=== PATIENT | female | born 1975 | race Caucasian/White ===

== ENCOUNTER 2018-02-20 09:17 | Emergency (ER) | payer OTHER, SELFPAY ==
[2018-02-20 09:18] VITALS: BP 144/90; PULSE 81; RESP 16; TEMP 36.8; O2SAT 100; BMI 23.8
--- NOTE | 2018-02-20 09:33 | US_ITS ---
STUDY: ULTRASOUND OF THE FEMALE PELVIS - COMPLETE REASON FOR EXAM: Female, 42 years old. 2 day history of a left lower quadrant pain. LMP: February 16, 2018. TECHNIQUE: Transvaginal TECHNICAL QUALITY: Adequate. COMPARISON: None. FINDINGS: The uterus is anteverted and is in a midline position. The uterus measures 8.7 cm x 5.7 cm x 4.7 cm. Normal uterine cervix. The endometrium measures 5 mm in thickness, and is hyperechoic. There is no demonstrated endometrial mass. There is no demonstrated myometrial mass. I.U.D. - The patient does not have an I.U.D. The right ovary is visualized. The right ovary measures 3.0 cm x 2.2 cm x 2.0 cm. There is no right ovarian cyst or ovarian mass. There is no visualized right adnexal mass or complex lesion. There is normal arterial and normal venous vascularity. The left ovary is visualized. The left ovary measures 3.5 cm x 2.1 cm x 1.8 cm. There is no left ovarian cyst or ovarian mass. There is no visualized left adnexal mass or complex lesion. There is normal arterial and normal venous vascularity. There is no fluid in the cul-de-sac. The pre void volume of the bladder was 266 ml. Polycystic ovary disease: No. US/Transvaginal Non- IMPRESSION: Normal female pelvis. Electronically Signed: Kamlesh Gonsalez MD at 11:27 EDT Tel [phone], Service support ,
--- NOTE | 2018-02-20 09:41 | ED.DCSUM_ITS ---
- ER Visit Summary Date of Service: 02/20/18 Chief Complaint: Left lower quadrant abdominal History of Present Illness: The patient is a 42 F presents to the emergency department left lower quadrant abdominal pain. The patient had the symptoms intermittently for the past 2 months. States for the past 24 hours, they have significantly worsened. She states that it comes in waves and always doubles her over. She did have a large right ovarian cyst and states that this feels similar. She states when she bends her leg, the pain is better. She has not had nausea or vomiting. She states that she did take 2 home tests which were both negative. She has had prior , but no other abdominal surgery. The patient is otherwise healthy. Physical Examination: Vital signs reviewed General: Well-nourished, well-developed Head: Normocephalic, atraumatic Eyes: Pupils equal and reactive, extraocular muscles intact Neck, supple, no lymphadenopathy Heart: Regular rate and rhythm Respiratory: No distress, clear bilaterally Abdomen: Soft, mildly tender, nondistended, no peritoneal signs Back: Nontender Extremities: Nontender, no edema, no cords Skin: Normal color no rash Neuro: Alert and oriented, no focal or lateralizing deficits Test Results: [] Emergency Department Course and Treatment: The patient's tenderness is all deep in her left lower quadrant into the pelvis. She does have a prior history of ovarian cyst. IV was established. She declined any analgesics. Screening labs were obtained were unremarkable. The patient has had no diarrhea, no fever , no chills, or no other systemic symptoms that would be concerning for acute intra-abdominal process like diverticulitis or colitis. I did obtain an ultrasound which shows normal bilateral ovaries with normal blood flow. There is no significant cystic changes. Her urine does show some blood, but the patient is just finishing her menses. On reevaluation she is resting comfortably. At this time, I am unclear on the acute etiology of her pain. I do feel that this may be adhesions from her prior versus another process. At this time, given her unremarkable workup and resolution of symptoms I do feel that she is safe for outpatient therapy. Patient will be discharged home. Treatment Plan: [] Disposition: [] Impression: 1. Left pelvic pain This note was generated with [employer] software. It may contain incorrect words, spelling, and punctuation that were not noted in review of the chart prior to signing ED Disposition - Plan for ED Patient: Chief Complaint: Abd Pain Instructions: ED Pelvic Pain [facility] Referrals: Natividad Yee PA-C [Primary Care Provider] -
[2018-02-20 09:52] LABS: Absolute Lymphocyte Count 2.33 X10^3/ul (0.83-4.51); Basophil# 0.05 X10^3/uL; Basophil% 0.7 % (0-1); Eosinophil# 0.04 X10^3/uL; Eosinophils% 0.6 % (0-5); Hematocrit 40.7 % (37-47); Hemoglobin 13.7 g/dl (12.0-15.0); Lymphocyte # 2.33 X10^3/ul (4.0); Lymphocyte % 33.1 % (19-41); Mean Corp Hgb Conc 33.7 g/gl (32-36); Mean Corpuscular Hgb 30.9 pg (27.0-32.0); Mean Corpuscular Volume 91.9 fL (81-99); Mean Platelet Vol. 9.6 fl (6.2-12.0); Monocyte# 0.65 X10^3/uL; Monocyte% 9.2 % (0-10); Neutrophil # 3.95 X10^3/uL (2.7-7.7); Neutrophil % 56.3 % (47-70); POSITIVE COUNT NO; POSITIVE DIFFERENTIAL NO; POSITIVE MORPHOLOGY NO; Platelet Count 238 K/mm3 (150-450); RBC Distribution Width CV 12.7 % (11.6-14.6); RBC Distribution Width SD 42.8 fl (35.1-43.9); Red Blood Count 4.43 M/mm3 (4.2-5.4)
[2018-02-20] MEDS: Ondansetron 4 MG/2 ML Vial IV (09:55)
[2018-02-20] MEDS: Ketorolac 30 MG/ML Syringe IV (09:55)
[2018-02-20] MEDS: 0.9% Normal Saline 1,000 ML 125 ML IV (09:56)
[2018-02-20 10:00] LABS: Anion Gap 7 (5-15); BUN 13 mg/dL (7-18); BUN/Creat Ratio 17.5 RATIO (10-20); Calcium,Total 9.2 mg/dL (8.5-10.1); Chloride 105 mmol/L (98-107); Creatinine, Serum 0.74 mg/dL (0.55-1.02); EST Glomerular Filtration Rate 90 mL/min (>60); Est Glom Filt Rate - Afr Amer 109 mL/min (>60); Estimated Creatinine Clearance 90.82 ml/min; Glucose 102 mg/dL (74-106); Potassium 4.1 mmol/L (3.5-5.1); Sodium Level 139 mmol/L (136-145)
[2018-02-20 11:09] LABS: Bacteria 0 SEEN /hpf (None Seen)
[2018-02-20 11:13] LABS: Internal QC Validated? YES +Cl - CLEAR BKGD
[2018-02-20 11:14] LABS: Color, Urine Straw (Yellow); Glucose, Dipstick Normal (Normal); Ketone-Dipstick Negative (Negative); Leukocyte Esterase-Dipstick Negative /ul (Negative); Nitrite-Dipstick Negative (Negative); Occult Blood-Urine 150 /ul (Negative); Protein-Dipstick Negative (Negative); Specific Gravity, Urine 1.005 (1.002-1.030); Urine Bilirubin Dipstick Negative (Negative); Urine Clarity Sl. Cloudy (Clear); Urine Urobilinogen Normal (Normal)
[2018-02-20 11:16] LABS: Pregnancy, Urine Negative Negative
[2018-02-20 11:31] LABS: Red Blood Cells-Urine 0-5 SEEN /hpf (0-5); Squamous Epithelial Cells - UA 0-5 SEEN /hpf (5-10); White Blood Cells 0-5 SEEN /hpf (0-5)
[2018-02-20 11:32] LABS: Mucous, Urine RARE /hpf (<or=2+)
[2018-02-20 11:58] VITALS: BP 125/74; PULSE 68; RESP 15; O2SAT 98
== END 2018-02-20 12:04 | disposition home or self-care (01) ==
LOC: ED 09:59
PROVIDERS: Emergency Provider Emergency Medicine; Family Provider Family Medicine; PCP Family Medicine
DX: R10.2 Pelvic and perineal pain (principal)
CPT/HCPCS: 76830; 80048; 81001; 81025; 85025; 96361; 96374; 96375; 99283; J7030; A4216; J2405

== ENCOUNTER → 2019-02-28 16:42 | Outpatient (CLI) | payer OTHER, SELFPAY ==
[2019-02-28 15:06] VITALS: BMI 23.8
[2019-03-06 16:16] LABS: HPV APTIMA, High Risk Negative (Negative)
== END ==
PROVIDERS: Family Provider Family Medicine; PCP Family Medicine; Referring Provider Nurse Practitioner Women's Health; Visit Provider Nurse Practitioner Women's Health
DX: Z12.4 Encounter for screening for malignant neoplasm of cervix (principal)
CPT/HCPCS: 87624; 88175; G0145

== ENCOUNTER → 2019-07-19 15:03 | Outpatient (CLI) | payer OTHER, SELFPAY ==
[2019-07-19 14:53] VITALS: BMI 23.8
--- NOTE | 2019-07-19 15:09 | RAD_ITS ---
HISTORY: PAIN ADDITIONAL HISTORY: None provided. TECHNIQUE: Left knee 4 views Number of images including paperwork: 4 COMPARISON: None FINDINGS: BONES: No acute fracture. JOINTS: No subluxation. Mild joint space narrowing of the medial compartment. SOFT TISSUES: No distinct foreign body. RAD/Knee 4 or More Views IMPRESSION: Degenerative changes without acute osseous abnormality. at 2311 Reported and signed by: Magui Au MD Electronically Signed: Magui Au MD at 23:11 EST Tel , Service support ,
== END ==
PROVIDERS: PCP Family Medicine; Referring Provider Physician Assistant; Visit Provider Physician Assistant
DX: M25.562 Pain in left knee (principal)
CPT/HCPCS: 73564

== ENCOUNTER → 2019-08-03 13:38 | Outpatient (CLI) | payer OTHER, SELFPAY ==
[2019-07-19 14:53] VITALS: BMI 23.8
--- NOTE | 2019-08-03 14:15 | BI_ITS ---
MAMMOGRAPHY - BILATERAL SCREENING REASON FOR EXAM: Female, 44 years old. Routine annual screening examination. PERTINENT HISTORY: Mother with breast cancer. Grandmother with breast cancer. Remote left excisional breast biopsy as well as prior bilateral implants. TECHNIQUE: Digital bilateral breast fabio (3D mammographic acquisition) in the CC and MLO projections. 2-D mediolateral oblique (MLO) and craniocaudad (CC) views of both breasts were obtained. CAD: Full Field Digital Mammography with Computer Added Detection was performed. COMPARISON: Comparison is made with prior outside examination dated November 20, 2009. FINDINGS: Breast Composition: The breasts are extremely dense, which lowers the sensitivity of mammography. There are no dominant masses or suspicious calcifications. Stable appearance of the bilateral breast implants. No other significant abnormalities are identified. There has been no significant change since the prior study. BI/SCREEN MAMM (CAD) W/FABIO BILAT IMPRESSION: Stable bilateral screening mammogram. Yearly follow-up mammogram recommended. (A) ASSESSMENT CATEGORY: BIRADS Category 2: Benign. A letter regarding these results will be sent to the patient by the facility within 30 days. Approximately 10% of breast cancers are not detected by mammography. A normal mammogram should not delay biopsy of a clinically suspicious abnormality. [id number] Electronically Signed: Kamlesh Gonsalez, at 9:56 EDT , Service support ,
[2019-08-03 15:40] LABS: AST(SGOT) 18 U/L (15-37); Alanine Aminotransfer ALT/SGPT 26 U/L (13-56); Albumin, Serum 3.8 g/dL (3.2-5.0); Alkaline Phosphatase 69 U/L (45-117); Anion Gap 3 (5-15); BUN 17 mg/dL (7-18); BUN/Creat Ratio 18.3 RATIO (10-20); Calcium,Total 9.2 mg/dL (8.5-10.1); Chloride 104 mmol/L (98-107); Cholesterol 199 mg/dL (200); Creatinine, Serum 0.93 mg/dL (0.55-1.02); EST Glomerular Filtration Rate 69 mL/min (>60); Est Glom Filt Rate - Afr Amer 84 mL/min (>60); Globulin 3.7 g/dL (2.2-4.2); Glucose 96 mg/dL (74-106); High Density Lipoprotein 48 mg/dL; Potassium 4.1 mmol/L (3.5-5.1); Protein, Total 7.5 g/dL (6.4-8.2); Sodium Level 139 mmol/L (136-145); Triglycerides 229 mg/dL; Very Low Density Lipoprotein 46 mg/dL (5-40)
== END ==
PROVIDERS: PCP Family Medicine; Referring Provider Family Medicine; Visit Provider Family Medicine
DX: Z12.31 Encounter for screening mammogram for malignant neoplasm of breast (principal); Z13.220 Encounter for screening for lipoid disorders; Z79.899 Other long term (current) drug therapy
CPT/HCPCS: 36415; 77063; 77067; 80053; 80061

== ENCOUNTER → 2019-11-28 09:43 | Outpatient (CLI) | payer OTHER, SELFPAY ==
[2019-07-19 14:53] VITALS: BMI 23.8
== END ==
PROVIDERS: PCP Family Medicine; Referring Provider Urology; Visit Provider Urology
DX: N39.0 Urinary tract infection, site not specified (principal)
CPT/HCPCS: 87086

== ENCOUNTER 2019-12-04 09:54 | Day surgery (SDC) | payer OTHER, SELFPAY ==
[2019-07-19 14:53] VITALS: BMI 23.8
[2019-12-04] VITALS (8 sets, daily range): BP systolic 112–138; BP diastolic 74–93; PULSE 60–74; RESP 16–18; TEMP 36.8–36.9; O2SAT 97–99; BMI 23.6
--- NOTE | 2019-12-04 | BLA_PTH ---
PATIENT: PATO UMAÑA [place] [facility] [facility] [id number] AGE/SX: 44/F ROOM: RE12/04/[address]: Dr. Meg Sadler MD : 1975 BED: DIS: 12/04/2019 SPEC #: [id number] RECD: 12/04/19 13:48 STATUS: CARROLL ZENG #: [id number] FRANTZ: 12/04/19 00:[address]: Meg Sadler DEPT: SURGICAL PATHOLOGY RECD BY: Nguyễn Glez ENTERED: 12/05/19 09:45 SP TYPE: BLADDER BX OTHR DR: Natividad Yee PA-C Tissues: Urinary bladder, NOS Procedures: Surgery Specimen Level IV HEADER OPERATION: Cysto, biopsy, fulguration, vaginoscopy PRE-OP DIAGNOSIS: Urinary tract infection, urge incontinence, dyspareunia TISSUE SUBMITTED: Bladder biopsy MICROSCOPIC DIAGNOSIS Urinary bladder, biopsy: Minimal chronic inflammation. No evidence of malignancy. AM:james 12/06/19 MICROSCOPIC DESCRIPTION Slides are reviewed. GROSS DESCRIPTION Received in fixative is one container labeled with the patient's name and designated bladder biopsy. The specimen consists of two irregular fragments of light fregoso soft tissue that in aggregate measure 0.3 x 0.2 x 0.1 cm. The specimen is totally submitted in one cassette. / AM:james 12/05/19 TC:3 CPT: 76785
--- NOTE | 2019-12-04 07:39 | HP.PCM_ITS ---
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 Due to her pain, we have decided to proceed with further evaluation under anesthesia with cystoscopy and pelvic exam, possible bl adder biopsy with fulguration. The risk benefits and alternatives were discussed including the risks of anesthesia, bleeding, infection, injury and the risk of complications secondary to COVID-19. She understands and desires to proceed. Past Medical History Past Medical History (Chronic Problems): Chronic Problems (Last Reviewed 12/04/19 @ 07:[address] Meg Sadler MD) Hypertension (Chronic) Neck pain (Chronic) Back pain (Chronic) Medical History: Medical History (Last Reviewed 12/04/19 @ 07:[address] Meg Sadler MD) Hypertension (Chronic) I10 Neck pain (Chronic) M54.2 Back pain (Chronic) M54.9 Insomnia (Acute) G47.00 Allergies Quinolones Allergy (Verified 11/27/19 13:16) Hives Sulfa (Sulfonamide Antibiotics) Allergy (Verified 11/27/19 13:16) Hives azithromycin [From Zithromax Z-Boubacar] Adverse Reaction (Verified 11/27/19 13:16) Upset Stomach Home Medications: Ambulatory Orders Medication Instructions Recorded ascorbic acid (vitamin C) 500 mg 500 mg PO DAILY cap 02/28/19 capsule biotin 1 mg capsule 1 mg PO DAILY 02/28/19 cholecalciferol (vitamin D3) 50 2,000 unit PO DAILY 02/28/19 mcg (2,000 unit) capsule lactobacillus combination no.8 3 3,000 mmu cells PO DAILY 02/28/19 billion cell capsule metoprolol tartrate 50 mg tablet 50 mg PO BID 02/28/19 omega-3 fatty acids 1,000 mg 1,000 mg PO DAILY 02/28/19 capsule quetiapine 50 mg tablet 50 mg PO QHS tab 02/28/19 tramadol 50 mg tablet 50 mg PO DAILY 09/25/19 vitamin B comp and C no.3 15 mg-10 1 cap PO DAILY 02/28/19 mg-50 mg-5 mg-300 mg capsule Clonazepam 0.25 mg PO QHS 11/27/19 Famotidine [Pepcid] 20 mg PO DAILY 11/27/19 Glucosam/MSM/Chondroit/Vit D3 [Sv 1 ea PO DAILY 11/27/19 Glucosamine Chondroitin Tab] Losartan Potassium [Cozaar] 25 mg PO DAILY 11/27/19 Magnesium Oxide [Magnesium] 500 mg PO DAILY 11/27/19 Turmeric Root Extract [Turmeric] 500 mg PO DAILY 11/27/19 Vitamin A 8,000 unit PO DAILY 11/27/19 Surgical History: Surgical History (Last Reviewed 12/04/19 @ 07:[address] Meg Sadler MD) S/P Z98.891 S/P sinus surgery Z98.890 s/p left shoulder surgery Smoking Status: Former smoker Tobacco Use: Non-smoker Review of Systems Constitutional: Denies: Anorexia, Fever Eyes: Denies: Vision Change HEENT: Denies: Difficulty Hearing, Difficulty Swallowing, Visual Changes Cardiovascular: Denies: Chest Pain, Chest Pressure Respiratory: Denies: Cough, Shortness of Breath Gastrointestinal: Denies: Abdominal Pain, Nausea, Vomiting Genitourinary: Reports: Incontinence, Urgency. Denies: Retention Gynecological: Reports: Sexual concerns Musculoskeletal: Reports: Muscle pain Skin: Denies: Wounds Neurological: Denies: Balance problems, Difficulty swallowing VTE Information - Inpt Only VTE Present on Admission: Yes VTE Mechan Device Prophylaxis: SCD's VTE Pharm Prophylaxis ordered?: No Reason prophylaxis not ordered:: Treatment Not Indicated - Physical Exam Vitals/I&O's: Body Mass Index (BMI) 23.8 General: Alert, Oriented x3, Cooperative, No apparent distress HEENT: Atraumatic, Normocephalic Oral: Moist Mucosa Neck: Supple, Trachea Midline Lungs: Normal air movement Cardiovascular: Regular rate, Regular Rhythm Abdomen: Soft, Non Tender, Non-Distended Extremities: No clubbing Skin: No rashes Musculoskeletal: No Muscle Wasting Neurological: Cranial nerves II-XII grossly intact, Neuro grossly intact Psych/Mental Status: Normal Affect, Alert and oriented to time, place, person, mood and affect Current Medications Cefazolin Sodium 2 gm/ Sodium (Chloride) 110 mls @ 150 mls/hr IV PREOP ONE Stop: 12/04/19 07:43 Assessment/Plan All Active Problems (Last Reviewed 12/04/19 @ 07:[address] Meg Sadler MD) Urinary tract infection (Acute) Urge incontinence (Acute) Dyspareunia (Acute) Insomnia (Acute) proceed with cystoscopy, possible bladder biopsy with fulguration under anesthesia Procedure Criteria Procedure Type: Elective COVID Risk Discussion: The surgeon/proceduralist and patient have discussed in detail the risk of exposure to and/or potential harm posed by the COVID-19 virus with having a surgery/procedure at this time versus the risk of delaying the surgery/procedure. It is not possible to know either the risk of delaying the surgery or procedure or chance of getting an infection with perfect accuracy, but a joint decision was made between the patient and the surgeon/proceduralist to proceed at this time with the scheduled surgery/procedure as indicated on the consent form.
--- NOTE | 2019-12-04 07:45 | PCM.OPRPT ---
Problem List (1) Urinary tract infection Status: Acute (2) Urge incontinence Status: Acute (3) Dyspareunia Status: Acute Report of Operation Date of Procedure: 12/04/19 Pre-Operative Diagnosis: Urinary tract infection, urge incontinence, dyspareunia Post-Operative Diagnosis: Same and bladder mucosal lesion, small, acute vaginitis Surgery/Procedure Performed:: Cystoscopy, bladder biopsy with fulguration, pelvic exam under anesthesia Type of Anesthesia:: General Specimen's removed: bladder biopsy times 2 Description of Procedure: The patient is a 44-year-old female with recurrent urinary tract infections, pelvic pain, dyspareunia who presents for evaluation under anesthesia due to history of urethritis and pain. Risks, benefits and alternatives were discussed preoperatively including those of anesthesia, bleeding, infection, injury, and that of COVID-19 complications. She understands and desires to proceed. The patient was taken to the operating room placed on the operating room table. Anesthesia monitored the head, neck, airway, IV access and vital signs throughout the case. Once anesthesia was appropriate ministered, the patient was placed in dorsal lithotomy position was prepped and draped in usual sterile fashion. During the prep there is vaginal discharge identified consistent with yeast. A cystourethroscopy was then performed through the urethra. 2 small mucosal abnormalities were identified on the patient's right lateral bladder wall just posterior to the right ureteral orifice. Each lesion was approximately in size. Biopsy forceps were used to take biopsies of these 2 areas. The mucosal abnormalities were removed in their entirety with the biopsy. The areas were then fulgurated with the Bugbee for hemostatic control and tissue treatment. At this time the bladder was emptied and the case was terminated. the patient was awakened and taken to the recovery room in good condition. There were no complications during the procedure. - Complications none - Admit VTE Documentation VTE Present on Admission: Yes VTE Mechan Device Prophylaxis: SCD's VTE Pharm Prophylaxis ordered?: No Reason prophylaxis not ordered:: Treatment Not Indicated
--- NOTE | 2019-12-04 07:46 | DCINST_ITS ---
Discharge Diet: No Restrictions Discharge Activity: May not drive while taking narcotic pain medications. Call your doctor if you observe: Fever of 101 or Higher, Inability to urinate, Inability to have a bowel movement, Uncontrolled pain Allergies/Adverse Reactions: Allergies Quinolones Allergy (Verified 12/04/19 10:25) Hives Sulfa (Sulfonamide Antibiotics) Allergy (Verified 12/04/19 10:25) Hives azithromycin [From Zithromax Z-Boubacar] Adverse Reaction (Verified 12/04/19 10:25) Upset Stomach Medications to take at Discharge ascorbic acid (vitamin C) 500 mg capsule 500 mg PO DAILY cap 02/28/19 biotin 1 mg capsule 1 mg PO DAILY 02/28/19 cholecalciferol (vitamin D3) 50 mcg (2,000 unit) capsule 2,000 unit PO DAILY 02/28/19 lactobacillus combination no.8 3 billion cell capsule 3,000 mmu cells PO DAILY 02/28/19 metoprolol tartrate 50 mg tablet 50 mg PO BID 02/28/19 omega-3 fatty acids 1,000 mg capsule 1,000 mg PO DAILY 02/28/19 quetiapine 50 mg tablet 50 mg PO QHS tab 02/28/19 tramadol 50 mg tablet 50 mg PO DAILY 02/28/19 vitamin B comp and C no.3 15 mg-10 mg-50 mg-5 mg-300 mg capsule 1 cap PO DAILY 02/28/19 Clonazepam 0.25 mg PO QHS 11/27/19 Famotidine [Pepcid] 20 mg PO DAILY 11/27/19 Glucosam/MSM/Chondroit/Vit D3 [Sv Glucosamine Chondroitin Tab] 1 ea PO DAILY 11/27/19 Losartan Potassium [Cozaar] 25 mg PO DAILY 11/27/19 Magnesium Oxide [Magnesium] 500 mg PO DAILY 11/27/19 Turmeric Root Extract [Turmeric] 500 mg PO DAILY 11/27/19 Vitamin A 8,000 unit PO DAILY 11/27/19 Cephalexin [Keflex] 500 mg PO Q12 3 Days #6 cap 12/04/19 Fluconazole [Diflucan] 150 mg PO DAILY 2 Days #2 tab 12/04/19 Oxycodone HCl/Acetaminophen [Percocet 5/325] 2 tablet PO Q8H PRN PRN 7 Days #20 tablet 12/04/19 The following prescriptions were given: Fluconazole [Diflucan] 150 mg PO DAILY 2 Days #2 tab Transmission Status: Pending to [id number] Cephalexin [Keflex] 500 mg PO Q12 3 Days #6 cap Transmission Status: Pending to [id number] Oxycodone HCl/Acetaminophen [Percocet 5/325] 2 tablet PO Q8H PRN PRN 7 Days #20 tablet PRN Reason: Pain Transmission Status: Received by [id number] Primary Care Physician: Natividad Yee PA-C [Primary Care Provider] - Test Results: Test results from this visit will be discussed in further detail at your follow- up appointment, if applicable. Please Follow Up With: Meg Sadler MD When: call office for appt Proposed Discharge Date: 12/04/19
--- NOTE | 2019-12-04 10:10 | EKG12_ITS ---
Test Reason : PREOP Blood Pressure : / mmHG Vent. Rate : 064 BPM Atrial Rate : 064 BPM P-R Int : 142 ms QRS Dur : 100 ms QT Int : 400 ms P-R-T Axes : 077 071 055 degrees QTc Int : 412 ms Normal sinus rhythm Normal ECG When compared with ECG of 01-APR-2014 11:57, Vent. rate has decreased BY 32 BPM Confirmed by KIRBY CORREA ([id number]), greeting card editor PATO ESCOBAR ([id number]) on 12/06/2019 12:05:57 PM Referred By: Meg Sadler Confirmed By:KIRBY CORREA
[2019-12-04 10:34] LABS: Hematocrit 39.7 % (37-47); Hemoglobin 13.2 g/dL (12.0-15.0); Mean Corp Hgb Conc 33.2 g/dL (32-36); Mean Corpuscular Hgb 31.2 pg (27.0-32.0); Mean Corpuscular Volume 93.9 fL (81-99); Mean Platelet Vol. 9.7 fl (6.2-12.0); Platelet Count 245 K/mm3 (150-450); RBC Distribution Width CV 12.3 % (11.6-14.6); RBC Distribution Width SD 41.9 fl (35.1-43.9); Red Blood Count 4.23 M/mm3 (4.2-5.4); White Blood Count 5.9 K/mm3 (4.4-11.0)
[2019-12-04] MEDS: Lactated Ringers 1,000 ML 100 ML IV (10:37)
[2019-12-04 10:49] LABS: Internal QC Validated? YES +Cl - CLEAR BKGD; Pregnancy, Urine Negative Negative
[2019-12-04 11:17] LABS: Anion Gap 3 (5-15); BUN 15 mg/dL (7-18); BUN/Creat Ratio 19.2 RATIO (10-20); Calcium,Total 9.1 mg/dL (8.5-10.1); Chloride 105 mmol/L (98-107); Creatinine, Serum 0.78 mg/dL (0.55-1.02); EST Glomerular Filtration Rate 84 mL/min (>60); Est Glom Filt Rate - Afr Amer 102 mL/min (>60); Estimated Creatinine Clearance 87.64 ml/min; Glucose 106 mg/dL (74-106); Potassium 4.2 mmol/L (3.5-5.1); Sodium Level 137 mmol/L (136-145)
[2019-12-04] MEDS: Cefazolin 2 GM in 0.9% Normal Saline 100 ML IV (13:11)
[2019-12-04] MEDS: oxyCODONE 5 MG Tablet PO (14:44)
[2019-12-04] MEDS: Acetaminophen 325 MG Tablet PO (14:44)
== END 2019-12-04 15:09 | disposition home or self-care (01) ==
LOC: SDC 09:58 → AC 09:59
PROVIDERS: Anesthesiology; PCP Family Medicine; Referring Provider Urology; Visit Provider Urology
PROC: 0TBB8ZX Excision of Bladder, Via Natural or Artificial Opening Endoscopic, Diagnostic (ICD-10-PCS; CPT 52204; principal; 2019-12-04 11:20)
DX: N39.0 Urinary tract infection, site not specified (principal); G47.00 Insomnia, unspecified; I10 Essential (primary) hypertension; N39.41 Urge incontinence; N76.0 Acute vaginitis; N94.10 Unspecified dyspareunia; Z87.891 Personal history of nicotine dependence; Z88.1 Allergy status to other antibiotic agents; Z88.2 Allergy status to sulfonamides; M54.2 Cervicalgia; M54.9 Dorsalgia, unspecified; G89.29 Other chronic pain
CPT/HCPCS: 52204; 80048; 81025; 85027; 87635; 88305; 93005; G2023; J7120; J2405; U0003

== ENCOUNTER → 2019-12-27 12:40 | Outpatient (CLI) | payer OTHER, SELFPAY ==
[2019-07-19 14:53] VITALS: BMI 23.8
[2019-12-04 10:30] VITALS: BMI 23.6
--- NOTE | 2019-12-27 12:45 | US_ITS ---
STUDY: RENAL ULTRASOUND - COMPLETE REASON FOR EXAM: Female, 44 years old. UTIs TECHNIQUE: Ultrasound evaluation of the kidneys was performed with real-time and static byrne-scale imaging. COMPARISON: None. FINDINGS: RIGHT KIDNEY: Normal location of the right kidney, which is normal in size. The right kidney measures 11.0 x 5.3 x 4.8 cm. There is a normal cortex of the right kidney. The renal cortex measures 1.6 cm. There is no right renal mass or cyst. There are no right renal calculi. There is no right hydronephrosis. DISTAL RIGHT URETER: There is non-visualization of the distal right ureter. There is no demonstrated right ureterovesical junction calculus. There is a visualized right ureteral jet. LEFT KIDNEY: Normal location of the left kidney, which is normal in size. The left kidney measures 11.4 x 6.0 x 5.9 cm. There is a normal cortex of the left kidney. The renal cortex measures 2.3 cm. There is no left renal mass or cyst. There are no left renal calculi. There is no left hydronephrosis. DISTAL LEFT URETER: There is non-visualization of the distal left ureter. There is no demonstrated left ureterovesical junction calculus. There is a visualized left ureteral jet. AORTA: There is no elongation or tortuosity of the abdominal aorta. I.V.C.: The IVC is patent. BLADDER: The bladder capacity is estimated at 964.4 mL with postvoid residual of 38.2 mL. This places the patient at some risk for urinary reflux and UTIs. US/Kidney and Bladder IMPRESSION: Sonographically normal kidneys Bladder distends normally but there is a postvoid residual of 38.2 mL which places the patient at mild risk for urinary reflux and UTIs Electronically Signed: Tommie Cote MD at 14:16 EDT , Service support ,
== END ==
PROVIDERS: PCP Family Medicine; Referring Provider Urology; Visit Provider Urology
DX: Z87.440 Personal history of urinary (tract) infections (principal)
CPT/HCPCS: 76770

== ENCOUNTER → 2020-01-08 14:19 | Outpatient (CLI) | payer OTHER, SELFPAY ==
[2019-12-04 10:30] VITALS: BMI 23.6
[2020-01-08 14:52] LABS: Absolute Neutrophil Count 4.4 X10^3/uL (2.0-7.7); Basophil# 0.04 X10^3/uL; Basophil% 0.6 % (0-1); Eosinophil# 0.04 X10^3/uL; Eosinophils% 0.6 % (0-5); Erythrocyte Sedimentation Rate 2 mm/hr (0-20); Hematocrit 41.6 % (37-47); Lymphocyte % 26.4 % (19-41); Mean Corp Hgb Conc 33.7 g/dL (32-36); Mean Corpuscular Hgb 31.1 pg (27.0-32.0); Mean Corpuscular Volume 92.4 fL (81-99); Monocyte# 0.49 X10^3/uL; Monocyte% 7.2 % (0-10); NRBC Flagged by Analyzer 0 % (0-5); Neutrophil # 4.42 X10^3/uL (2.7-7.7); Neutrophil % 64.9 % (47-70); Platelet Count 276 K/mm3 (150-450); RBC Distribution Width CV 12.2 % (11.6-14.6); RBC Distribution Width SD 40.8 fl (35.1-43.9); White Blood Count 6.8 K/mm3 (4.4-11.0)
[2020-01-08 15:39] LABS: Progesterone Level 0.45 ng/mL (See Comment)
[2020-01-08 15:42] LABS: Vitamin D,25 Hydroxy > 150.0 ng/mL (29.95-100.01)
[2020-01-08 16:07] LABS: CRP < 2.90 mg/L (0.0-3.0); Ferritin 58 ng/mL (8-252); Follicle Stimulating Hormone 4.5 mIU/mL; Free T3 2.7 pg/mL (2.18-3.98); Luteinizing Hormone 6.4 mIU/mL; Prolactin 9.6 ng/mL; Rheumatoid Factor < 10.0 IU/mL (<15); T4 Free Direct 1.16 ng/dL (0.76-1.46); Thyroid Stim Hormone (TSH) 0.34 uIU/mL (0.358-3.74)
[2020-01-10 16:37] LABS: Anti-Nuclear Antibody Test Negative (.); Anti-Thyroglobulin AB < 1.0 IU/mL (0.0-0.9); Thyroglobulin, Serum Qt. 21.2 ng/mL (1.5-38.5)
== END ==
PROVIDERS: PCP Family Medicine; Referring Provider Family Medicine; Visit Provider Family Medicine
DX: R00.0 Tachycardia, unspecified (principal); R53.83 Other fatigue; G89.29 Other chronic pain; R68.89 Other general symptoms and signs; E55.9 Vitamin D deficiency, unspecified; N95.2 Postmenopausal atrophic vaginitis
CPT/HCPCS: 36415; 82306; 82627; 82728; 83001; 83002; 83090; 84144; 84146; 84403; 84432; 84439; 84443; 84481; 85025; 85652; 86038; 86140; 86376; 86431; 86800; 82626

== ENCOUNTER → 2020-03-26 09:45 | Outpatient (CLI) | payer OTHER, SELFPAY ==
[2020-02-28 11:18] VITALS: BMI 23.6
== END ==
PROVIDERS: PCP Family Medicine; Referring Provider Family Medicine; Visit Provider Family Medicine
DX: R05 Cough (principal); R50.9 Fever, unspecified
CPT/HCPCS: 87635; C9803; U0003

== ENCOUNTER → 2020-05-09 09:57 | Outpatient (CLI) | payer OTHER, SELFPAY ==
[2020-05-09 09:19] VITALS: BMI 24.4
[2020-05-09 13:23] LABS: Estradiol 79.4 pg/mL; Follicle Stimulating Hormone 3.8 mIU/mL; Free T3 2.7 pg/mL (2.18-3.98); Luteinizing Hormone 8.8 mIU/mL; T4 Free Direct 1.03 ng/dL (0.76-1.46); Thyroid Stim Hormone (TSH) 0.74 uIU/mL (0.358-3.74)
[2020-05-13 12:08] LABS: Testosterone, % Free 2.46 % (0.50-2.80); Testosterone, Total 12 ng/dL (8-48)
[2020-05-13 12:59] LABS: Thyroid Peroxidase AB < 9 IU/mL (0-34)
== END ==
PROVIDERS: PCP Family Medicine; Referring Provider Internal Medicine Endocrinology, Diabetes & Metabolism; Visit Provider Internal Medicine Endocrinology, Diabetes & Metabolism
DX: R63.5 Abnormal weight gain (principal); R23.2 Flushing; R94.6 Abnormal results of thyroid function studies
CPT/HCPCS: 36415; 82627; 82670; 83001; 83002; 84402; 84403; 84439; 84443; 84481; 86376; 82626

== ENCOUNTER → 2020-06-11 12:25 | Outpatient (CLI) | payer OTHER, SELFPAY ==
[2019-12-04 10:30] VITALS: BMI 23.6
[2020-05-09 09:19] VITALS: BMI 24.4
--- NOTE | 2020-06-11 16:00 | NEURO ---
NCS and/or EMG Patient Report Ordering Doctor: Priscila De La Vega DATE OF SERVICE: 06/11/20 Veronica De La Vega presents for electrodiagnostic testing of the left lower limb. She reports a long history of low back pain with radiation into the left leg. She reports weakness. Electrodiagnostic findings: Left common peroneal nerve demonstrates normal distal latency and amplitude with normal conduction velocity. Normal left tibial motor response. Normal tibial peroneal F wave. H reflex normal bilaterally. Sensory responses are within normal limits. On needle EMG, 1+ fibrillations are noted in the left external hamstrings, left gluteus scar left anterior tibialis and left lower lumbar paraspinals. The left gluteus scar demonstrates a decreased recruitment pattern with 1+ polyphasic motor units. Electrodiagnostic impression: This is an abnormal study in the left lower limb. 1. Electrodiagnostic findings demonstrate acute on chronic left L5 radiculopathy. 2. No electrodiagnostic evidence noted for peripheral neuropathy.
== END ==
PROVIDERS: PCP Family Medicine; Referring Provider Chiropractor; Visit Provider Chiropractor
DX: M54.16 Radiculopathy, lumbar region (principal)
CPT/HCPCS: 95886; 95909

== ENCOUNTER → 2020-07-16 09:16 | Outpatient (CLI) | payer OTHER, SELFPAY ==
[2020-05-09 09:19] VITALS: BMI 24.4
[2020-07-16 10:15] LABS: Amphetamine Urine VISTA NEGATIVE (<1000 ng/mL); Barbiturate Urine VISTA NEGATIVE (< 200 ng/mL); Benzodiazepine Urine VISTA NEGATIVE (< 200 ng/mL); Cocaine Urine VISTA NEGATIVE (< 300 ng/mL); Ecstacy Urine VISTA NEGATIVE (< 500 ng/mL); Methadone Urine VISTA NEGATIVE (< 300 ng/mL); PCP Urine VISTA NEGATIVE (< 25 ng/mL); THC Urine VISTA NEGATIVE (< 50 ng/mL); Vista UDS pH Range 6
== END ==
PROVIDERS: PCP Family Medicine; Referring Provider Anesthesiology Pain Medicine; Visit Provider Anesthesiology Pain Medicine
DX: F11.20 Opioid dependence, uncomplicated (principal)
CPT/HCPCS: 80307

== ENCOUNTER 2021-08-24 12:29 | Emergency (ER) | payer OTHER, SELFPAY ==
[2021-08-24 12:29] VITALS: BP 134/96; PULSE 93; RESP 16; TEMP 36.2; O2SAT 98; BMI 24.3
--- NOTE | 2021-08-24 15:09 | VDLE_ITS ---
Reason For Study: LLE PAIN RIGHT LEFT GSV is normal. GSV is normal. CFV is compressible, spontaneous, phasic, CFV is compressible, spontaneous, phasic, competent and demonstrates normal competent, and demonstrates normal augmentation. augmentation. FV is compressible, spontaneous, phasic, FV is compressible, spontaneous, phasic, competent and demonstrates normal competent and demonstrates normal augmentation. augmentation. POP V is compressible, spontaneous, phasic, POP V is compressible, spontaneous, phasic, competent and demonstrates normal competent and demonstrates normal augmentation. augmentation. T/P Trunk is compressible. T/P Trunk is compressible. PTV is compressible. PTV is compressible. RT PerV is compressible. LT PerV is compressible. Procedure This is a venous duplex using B-mode, color flow and spectral Doppler. Exam performed portable in ED. The exam was diagnostic. A preliminary report was called and/or faxed to Dr. Tony/MARJORIE & Natividad Yee PA-C @ 3:50 PM. VL/Venous Duplex US - Sidney Extrem Interpretation Summary No evidence for acute deep venous thrombosis bilateral lower extremities with p atent and compressible bilateral great saphenous veins. Ordering Physician: Kevin Tony Referring Physician: Natividad Yee Performed By: Kya Rivera, RDCS, RVT
--- NOTE | 2021-08-24 15:33 | ED.VIS.LOWEX ---
HPI History of Present Illness Chief Complaint: Lower Extremity Injury Narrative Narrative: 46-year-old female presenting with bilateral calf pain. She states that usually is worse on the left. She notes that in nondenominational the other day she stood up briskly and had pain in the left calf. She states that after this she noticed there was some pitting edema in the left calf only. The right calf appears to be nontender currently. Patient notes a small area the size of a quarter that is slightly red. She denies any trauma. She denies doing anything that would pull a muscle. She states she can ambulate. She states that she was sick with something a couple of weeks ago and thinks she might of had COVID and developed a DVT. She is not having chest pain or shortness of breath. PFSH PFS Medical History Back pain Hypertension Insomnia Neck pain Home Medications ascorbic acid (vitamin C) 500 mg capsule 500 mg PO DAILY cap 02/28/19 [History Last Taken Unknown] cholecalciferol (vitamin D3) 50 mcg (2,000 unit) capsule 2,000 unit PO DAILY 02/28/19 [History Last Taken Unknown] metoprolol tartrate 50 mg tablet 50 mg PO BID 02/28/19 [History Last Taken 12/04/19] quetiapine 50 mg tablet 50 mg PO QHS tab 02/28/19 [History Last Taken Unknown] tramadol 50 mg tablet 50 mg PO DAILY 02/28/19 [History Last Taken Unknown] clonazepam 0.25 mg PO QHS 11/27/19 [History Last Taken Unknown] Allergy/AdvReac Type Severity Reaction Status Date / Time Quinolones Allergy Hives Verified 08/24/21 12:31 Sulfa (Sulfonamide Allergy Hives Verified 08/24/21 12:31 Antibiotics) azithromycin AdvReac Upset Verified 08/24/21 12:31 [From Zithromax Z-Boubacar] Stomach Family History Father Hypertension Mother Breast cancer Grandfather Breast cancer Heart disease Diabetes Surgical History S/P s/p left shoulder surgery S/P sinus surgery Social History Smoking Status: Never smoker alcohol intake: current details: occasionally substance use type: does not use caffeine: Yes what type of physical activity do you participate in: walking frequency: 3-4 times per week duration: 15-30 minutes/day seatbelt use: always do you feel safe at home: Yes additional social history: [id number] 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 Constitutional Constitutional ED: Denies chills, fever(s) or sweats Eyes Eyes: Denies blurry vision or diplopia ENT ENT ED: Denies rhinorrhea or sore throat Cardiovascular Cardiovascular: Denies chest pain or palpitations Respiratory/Chest Respiratory/Chest: Denies cough or dyspnea Gastrointestinal Gastrointestinal: Denies abdominal pain, nausea or vomiting Genitourinary Genitourinary ED: Denies dysuria Musculoskeletal Musculoskeletal: Reports other Details: Bilateral calf pain Integumentary Reports other Details: Small area of erythema on the left calf Neurologic Neurologic: Denies headache(s) EXAM Physical Exam Const Vital Signs: 08/24/21 12:29 Temperature 97.2 F L Temperature Source Temporal Pulse Rate 93 Respiratory Rate 16 Blood Pressure 134/96 H Blood Pressure Mean 108 Pulse Ox 98 Positive well nourished General Appearance ED: NAD HEENT normocephalic and atraumatic Resp normal respiratory effort Cardio regular rate and regular rhythm Extremity Extremity Narrative: Left calf is tender to palpation mildly over the central portion. There is a quarter sized area of erythema here which does not appear to be cellulitis. Compartments are soft. Right calf is nontender to palpation. I do not visualize any edema in either calf or either foot. No cords palpated. Neuro oriented x3 Sensorium / Orientation: alert Psych mental status grossly normal Skin Skin Narrative: As described above MDM MDM MDM Narrative Medical decision making narrative: Patient doing well requested bilateral lower extremity ultrasounds for DVT as she thought she had DVTs from having possible Covid recently. Her ultrasounds of the lower extremities are both negative. Patient has a small area of erythema on the mid calf which does not look cellulitic or infectious in nature. I counseled her to continue to watch it and follow-up with her primary care physician. She can return to the ER for any new or worsening symptoms. Patient stable for discharge. Impression: 1. Bilateral calf pain Radiography Diagnostic Testing: Clinical Impression(s) from Imaging Studies Venous Doppler Study 08/24/21 15:09 Interpretation Summary No evidence for acute deep venous thrombosis bilateral lower extremities with patent and compressible bilateral great saphenous veins. Ordering Physician: Kevin Tony Referring Physician: Natividad Yee Performed By: Kya Rivera RDCS, RVT Discharge Plan Triage Chief Complaint: Lower Extremity Injury ED Provider: Kevin Tony Dx/Rx/DC Orders Instructions: Lower Body Exercises: Calf Stretch Prescriptions: No Action quetiapine [Seroquel] 50 mg tablet 50 mg PO QHS RF: 0 tramadol 50 mg tablet 50 mg PO DAILY RF: 0 ascorbic acid (vitamin C) 500 mg capsule 500 mg PO DAILY RF: 0 cholecalciferol (vitamin D3) 2,000 unit capsule 2,000 unit PO DAILY RF: 0 metoprolol tartrate 50 mg tablet 50 mg PO BID RF: 0 clonazepam 0.25 MG tablet,disintegrating 0.25 mg PO QHS RF: 0 Primary Care Provider: Natividad Yee Referrals: Natividad Yee PA-C [Primary Care Provider] - Disposition Disposition: Home, Self Care
== END 2021-08-24 17:12 | disposition home or self-care (01) ==
PROVIDERS: Emergency Provider Student in an Organized Health Care Education/Training Program; PCP Family Medicine; Visit Provider Student in an Organized Health Care Education/Training Program
DX: M79.662 Pain in left lower leg (principal); I10 Essential (primary) hypertension; M79.661 Pain in right lower leg; Z79.899 Other long term (current) drug therapy
CPT/HCPCS: 93970; 99282

== ENCOUNTER 2021-11-07 17:15 | Emergency (ER) | payer OTHER, SELFPAY ==
[2021-11-07 17:16] VITALS: BP 166/98; PULSE 86; RESP 16; TEMP 36.4; O2SAT 99; BMI 23.8
--- NOTE | 2021-11-07 17:34 | EDS_ITS ---
HPI History of Present Illness Chief Complaint: Lower Extremity Injury Narrative Narrative: 46-year-old female with history of anxiety, hypertension, insomnia presents to the emergency department with concern of blood clots to bilateral lower legs. Since the contracted COVID for the second time a few months ago, she has been very concerned about the risk for blood clots. Patient was seen here in August of this year for the same, she feels pain in her calves, the pain has been getting unbearable and she believes she has DVTs. Patient did receive a venous duplex of bilateral lower extremities August 24, 2021, this was negative for any deep vein thrombosis. Patient denies any chest pain or shortness of breath, fever chills. Denies any new injury she is currently getting worked up for this pain to her bilateral lower extremities. She has a CT angio with runoffs [facility] Medical History (Updated 11/07/21 @ 17:43 by Marcio Oneal NP-Zeke) Back pain Hypertension Insomnia Neck pain Home Medications ascorbic acid (vitamin C) 500 mg capsule 500 mg PO DAILY cap 02/28/19 [History Last Taken Unknown] cholecalciferol (vitamin D3) 50 mcg (2,000 unit) capsule 2,000 unit PO DAILY 02/28/19 [History Last Taken Unknown] metoprolol tartrate 50 mg tablet 50 mg PO BID 02/28/19 [History Last Taken 12/04/19] quetiapine 50 mg tablet 50 mg PO QHS tab 02/28/19 [History Last Taken Unknown] tramadol 50 mg tablet 50 mg PO DAILY 02/28/19 [History Last Taken Unknown] clonazepam 0.25 mg PO QHS 11/27/19 [History Last Taken Unknown] Allergy/AdvReac Type Severity Reaction Status Date / Time Quinolones Allergy Hives Verified 11/07/21 17:18 Sulfa (Sulfonamide Allergy Hives Verified 11/07/21 17:18 Antibiotics) azithromycin AdvReac Upset Verified 11/07/21 17:18 [From Zithromax Z-Boubacar] Stomach Family History Father Hypertension Mother Breast cancer Grandfather Breast cancer Heart disease Diabetes Surgical History (Updated 08/24/21 @ 17:06 by Dexter Landrum) S/P s/p left shoulder surgery S/P sinus surgery Status post glaucoma surgery Social History Smoking Status: Never smoker alcohol intake: current details: occasionally substance use type: does not use caffeine: Yes what type of physical activity do you participate in: walking frequency: 3-4 times per week duration: 15-30 minutes/day seatbelt use: always do you feel safe at home: Yes additional social history: [employer]-Sdbwpnimtjcy 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 ROS Narrative Constitutional: Negative for fever, chills, weight loss, weakness Eyes: Negative for vision loss, vision change, double vision ENT: Negative for any sore throat, ear pain, congestion Cardiovascular: Negative for any chest pain, tightness, palpitations Respiratory: Negative for any cough, sputum production, hemoptysis, dyspnea, dyspnea on exertion, orthopnea Gastrointestinal: Negative for any abdominal pain, nausea, vomiting, diarrhea, constipation, blood in stool, blood in vomit : Negative for any urinary frequency, dysuria, retention, blood in urine Muscle skeletal: Negative for any muscle joint pain, stiffness, myalgias, arthralgias, neck pain, back pain. Positive for bilateral leg pain worse on the left Neurological: Negative for any headache, syncope, numbness or tingling, dizziness Skin: Negative for any rashes, lumps, itching, abrasions, lacerations Psychiatric: Negative for any depression, anxiety, stress, suicidal ideation, homicidal ideation Hematologic: Negative for any easy bruising, excessive bruising, easy bleeding Allergies: Negative for any eczema, hives, rash EXAM Physical Exam Narrative Exam Narrative: Vital signs reviewed. HEET: Head normocephalic atraumatic, TMs clear bilaterally. Posterior pharynx is clear, moist mucous membranes. Nares clear bilaterally. Neck: Supple with no lymphadenopathy or tenderness. No signs of meningismus, negative jolt sign. Cardiac: Regular rate and rhythm no murmurs gallops or rubs, equal peripheral pulses bilaterally. Respiratory: Lungs clear to auscultation bilaterally. No chest tenderness. Abdomen: Soft, nontender, nondistended. No abdominal bruit or pulsatile masses. No hepatosplenomegaly Extremities: No peripheral edema, no signs of gross trauma or deformity. Active full range of motion of all extremities. Patient's lower extremities were wrapped, they were unwrapped, patient has good color to bilateral lower extremities. +2 pedal pulses. Patient has no pain on palpation to bilateral calves. Patient is full range of motion to the bilateral lower extremities. Negative for any evidence of vascular issues. Neuro: Cranial nerves II through XII intact, no focal neurological deficits. Skin: Clean dry and intact with no rash, purpura, petechiae, vesicles or pustules. Backs/flank: No CVA tenderness, no midline spinal tenderness, no deformity. Psych: Normal mood and affect. No SI, HI or acute psychosis. Const Vital Signs: 11/07/21 17:16 Temperature 97.5 F L Temperature Source Temporal Pulse Rate 86 Respiratory Rate 16 Blood Pressure 166/98 H Blood Pressure Mean 120 Pulse Ox 99 Oxygen Delivery Method Room Air Positive well nourished and well developed General Appearance ED: well developed MDM MDM MDM Narrative Medical decision making narrative: Patient appears anxious, vital signs are stable. Patient presents the emergency part with bilateral lower extremity pain concerning for blood clots. Patient's physical examination was unremarkable for any acute abnormality. Patient has no indication for any vascular abnormality, rash, abscess, cellulitis. However due to the patient's concern bilateral venous duplex of the lower extremities are ordered for tomorrow due to vascular not being here at this time in the emergency department. Patient will receive a call between 9 AM and 1 PM to follow-up outpatient. Due to the patient's growing concern, she will be given a shot of Lovenox here. She is happy with plan of care. I did speak with the patient at length regarding her anxiety, she will follow-up outpatient. Patient is stable for discharge instructed return for any worsening symptoms. She will follow-up tomorrow for DVT study. Lab Data Attestation: I reviewed the patient's lab results. Discharge Plan Triage Chief Complaint: Lower Extremity Injury ED Midlevel Provider: Marcio Oneal ED Provider: Marcio Loco Dx/Rx/DC Orders Clinical Impression: Chronic leg pain Instructions: Chronic Pain Therapies Mind Body, ED Bandage Elastic Wrap, ED Myalgias Prescriptions: No Action quetiapine [Seroquel] 50 mg tablet 50 mg PO QHS RF: 0 tramadol 50 mg tablet 50 mg PO DAILY RF: 0 ascorbic acid (vitamin C) 500 mg capsule 500 mg PO DAILY RF: 0 cholecalciferol (vitamin D3) 2,000 unit capsule 2,000 unit PO DAILY RF: 0 metoprolol tartrate 50 mg tablet 50 mg PO BID RF: 0 clonazepam 0.25 MG tablet,disintegrating 0.25 mg PO QHS RF: 0 Other Ambulatory Orders: Venous Duplex US - [place] Extrem (Routine) Facility: [facility] - Location: [facility] Ordered By: Marcio Oneal ON-CALL NEEDED: Notify [facility] - Doppler Study Ordered (Stat) Location: None Selected Ordered By: Marcio Oneal Primary Care Provider: Natividad Yee Referrals: Natividad Yee, PA-C [Primary Care Provider] - Activity Restrictions/Additional Instructions: You are receiving a shot of Lovenox. Please follow-up tomorrow for your outpatient DVT study. Print Language: Yoruba Disposition Disposition: Home, Self Care
[2021-11-07] MEDS: Enoxaparin 80 MG/0.8 ML Syringe 70 MG SC (17:39)
== END 2021-11-07 17:51 | disposition home or self-care (01) ==
PROVIDERS: Emergency Provider Emergency Medicine; PCP Family Medicine; Visit Provider Emergency Medicine
DX: M79.604 Pain in right leg (principal); G89.29 Other chronic pain; F41.9 Anxiety disorder, unspecified; G47.00 Insomnia, unspecified; I10 Essential (primary) hypertension; M79.605 Pain in left leg; Z79.899 Other long term (current) drug therapy; Z86.16 Personal history of COVID-19
CPT/HCPCS: 96372; 99282

== ENCOUNTER → 2021-11-09 | Outpatient (CLI) | payer SELFPAY ==
--- NOTE | 2021-11-09 18:10 | CT_ITS ---
STUDY: CTA OF THE ABDOMINAL AORTA AND BILATERAL LOWER EXTREMITIES REASON FOR EXAM: Female, 46 years old. VASCULAR CLAUDICATION following Covid. RADIATION DOSAGE (If Supplied By Facility): CTDIvol = ( 7.01 ) mGy, DLP = ( 1039.31 ) mGycm TECHNIQUE: Axial CT angiography multi-detector data acquisition was obtained from the dome of the liver to the level of the ankles following intravenous administration of IV 100mL Isovue-370. Axial images and MIP images were reconstructed from the axial data set. Post-processing of the angiographic images was performed, with multiplanar reformation and 3D reconstruction. Individualized dose optimization techniques were used for this CT. TECHNICAL QUALITY: Good COMPARISON: None. Descriptors of Narrowing: None (0%) Mild (< 50%) Moderate (50-70%) Severe (70-90%) Subtotal/Total Occlusion (90-100%) Non-Evaluable (technically non-diagnostic FINDINGS: Bilateral breast prostheses. Small umbilical hernia containing fat. Enlarged fibroid uterus. Abdominal aorta: No demonstrated narrowing. Celiac and superior mesenteric arteries: No demonstrated narrowing. Inferior mesenteric artery: No demonstrated narrowing. Right renal artery(arteries): No demonstrated narrowing. Left renal artery(arteries): No demonstrated narrowing. Right common iliac artery: No demonstrated narrowing. Right external iliac artery: No demonstrated narrowing. Right internal iliac artery: No demonstrated narrowing. Left common iliac artery: No demonstrated narrowing. Left external iliac artery: No demonstrated narrowing. Left internal iliac artery: No demonstrated narrowing. RIGHT LOWER EXTREMITY Right common femoral artery: No demonstrated narrowing. Right profundus femoris: No demonstrated narrowing. Right superficial femoral: No demonstrated narrowing. Right popliteal artery: No demonstrated narrowing. Right tibioperoneal trunk: No demonstrated narrowing. Right anterior tibial artery: No demonstrated narrowing. Right posterior tibial artery: No demonstrated narrowing. Right peroneal artery: No demonstrated narrowing. LEFT LOWER EXTREMITY Left common femoral artery: No demonstrated narrowing. Left profundus femoris: No demonstrated narrowing. Left superficial femoral: No demonstrated narrowing. Left popliteal artery: No demonstrated narrowing. Left tibioperoneal trunk: No demonstrated narrowing. Left anterior tibial artery: No demonstrated narrowing. Left posterior tibial artery: No demonstrated narrowing. Left peroneal artery: No demonstrated narrowing. CT/CTA Abd w/Runoff W/WO Contrast IMPRESSION: Normal abdominal aorta and bilateral lower extremity run-off without a hemodynamically significant stenosis. Electronically Signed: Kamlesh Gonsalez MD at 9:02 EDT ,
[2021-11-09 18:26] LABS: CREATININE FINGERSTICK < 0.9 mg/dL (0.55-1.02); EGFR FINGERSTICK > 60.0000 mL/min (>60)
== END | disposition home or self-care (01) ==
LOC: CT 18:08
PROVIDERS: PCP Family Medicine; Visit Provider Chiropractor
DX: I73.9 Peripheral vascular disease, unspecified (principal)
CPT/HCPCS: 75635; Q9967

== ENCOUNTER → 2022-06-21 | Outpatient (CLI) | payer OTHER, SELFPAY ==
--- NOTE | 2022-06-21 12:58 | VDLE_ITS ---
Reason For Study: Edema Procedure LEFT This is a venous duplex using B-mode, color GSV is normal. flow and spectral Doppler. CFV is compressible, spontaneous, phasic, Exam performed in department. competent, and demonstrates normal A preliminary report was called and/or faxed augmentation. to Dr. De La Vega. FV is compressible, spontaneous, phasic, competent and demonstrates normal augmentation. POP V is compressible, spontaneous, phasic, competent and demonstrates normal augmentation. T/P Trunk is compressible. PTV is compressible. LT PerV is compressible. VL/Venous Duplex US, Unilateral Interpretation Summary There is no evidence of left lower extremity deep vein thrombosis. Left great s aphenous vein appears patent and compressible segmentally. Ordering Physician: Priscila De La Vega Referring Physician: Natividad Yee Performed By: Hailey Mchugh RVT
== END | disposition home or self-care (01) ==
LOC: CVS 12:57
PROVIDERS: PCP Family Medicine; Visit Provider Chiropractor
DX: R60.9 Edema, unspecified (principal); M79.89 Other specified soft tissue disorders
CPT/HCPCS: 93971

== ENCOUNTER → 2022-07-20 | Outpatient (CLI) | payer OTHER, SELFPAY ==
[2022-07-20 12:40] LABS: Amphetamine Urine VISTA NEGATIVE (<1000 ng/mL); Barbiturate Urine VISTA NEGATIVE (< 200 ng/mL); Benzodiazepine Urine VISTA NEGATIVE (< 200 ng/mL); Cocaine Urine VISTA NEGATIVE (< 300 ng/mL); Ecstacy Urine VISTA NEGATIVE (< 500 ng/mL); Methadone Urine VISTA NEGATIVE (< 300 ng/mL); PCP Urine VISTA NEGATIVE (< 25 ng/mL); THC Urine VISTA NEGATIVE (< 50 ng/mL); Vista UDS pH Range 7
== END | disposition home or self-care (01) ==
PROVIDERS: PCP Family Medicine; Referring Provider Anesthesiology Pain Medicine; Visit Provider Anesthesiology Pain Medicine
DX: F11.20 Opioid dependence, uncomplicated (principal)
CPT/HCPCS: 80307

== ENCOUNTER → 2022-08-17 | Outpatient (CLI) | payer OTHER, SELFPAY ==
[2022-08-17 12:21] LABS: Amphetamine Urine VISTA NEGATIVE (<1000 ng/mL); Barbiturate Urine VISTA NEGATIVE (< 200 ng/mL); Benzodiazepine Urine VISTA NEGATIVE (< 200 ng/mL); Cocaine Urine VISTA NEGATIVE (< 300 ng/mL); Ecstacy Urine VISTA NEGATIVE (< 500 ng/mL); Methadone Urine VISTA NEGATIVE (< 300 ng/mL); PCP Urine VISTA NEGATIVE (< 25 ng/mL); THC Urine VISTA NEGATIVE (< 50 ng/mL); Vista UDS pH Range 6
== END | disposition home or self-care (01) ==
PROVIDERS: PCP Family Medicine; Visit Provider Anesthesiology Pain Medicine
DX: F11.20 Opioid dependence, uncomplicated (principal)
CPT/HCPCS: 80307

== ENCOUNTER → 2022-09-27 | Outpatient (CLI) | payer OTHER, SELFPAY ==
--- NOTE | 2022-09-27 08:29 | BI_ITS ---
MAMMOGRAPHY - BILATERAL SCREENING REASON FOR EXAM: Female, 47 years old. Routine annual screening examination. PERTINENT HISTORY: Mother with breast cancer. Grandmother with breast cancer. Remote left excisional breast biopsy. Bilateral breast implants. TECHNIQUE: Digital bilateral breast fabio (3D mammographic acquisition) in the CC and MLO projections. 2-D mediolateral oblique (MLO) and craniocaudad (CC) views of both breasts were obtained. CAD: Full Field Digital Mammography with Computer Added Detection was performed. COMPARISON: Comparison is made with prior examination of August 03, 2019. FINDINGS: Breast Composition: The breasts are extremely dense, which lowers the sensitivity of mammography. There are no dominant masses or suspicious calcifications. Stable appearance of the bilateral breast implants. No other significant abnormalities are identified. There has been no significant change since the prior study. BI/SCRN MAMM (CAD)W/FABIO BILAT IMPRESSION: Stable bilateral screening mammogram. Yearly follow-up mammogram recommended. (A) ASSESSMENT CATEGORY: BIRADS Category 2: Benign. A letter regarding these results will be sent to the patient by the facility within 30 days. Approximately 10% of breast cancers are not detected by mammography. A normal mammogram should not delay biopsy of a clinically suspicious abnormality. [id number] Electronically Signed: Kamlesh Gonsalez MD at 9:57 EDT ,
== END | disposition home or self-care (01) ==
LOC: OPBI 08:27
PROVIDERS: PCP Family Medicine; Referring Provider Family Medicine; Visit Provider Family Medicine
DX: Z12.31 Encounter for screening mammogram for malignant neoplasm of breast (principal); Z80.3 Family history of malignant neoplasm of breast
CPT/HCPCS: 77063; 77067

== ENCOUNTER 2022-11-18 12:30 | Outpatient (RCR) | payer OTHER, SELFPAY ==
--- NOTE | 2022-07-08 11:26 | HP.PTEVAL ---
Patient's Visit Information PATO UMAÑA is a 47 year old F referred to Physical Therapy by BRANDY SANTOS with a diagnosis of Left ACL. Date of Evaluation: 07/08/22 Physical Therapist: Jessie Li DPT - Visit Plan Frequency: 3x /Week Duration: 4 Weeks Plan: Focus on LE and core strength/stabilization and functional mobility. 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 Left sided sciatica for years- managed with chiro adjustments, exercise, laser. 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 She has had many injections by Dr. Layne last ones were 3 months ago- She has had MRI on her lumbar spine- but not recently. Her works a lot and now she is having issues functioning. She has not been bearing weight on her LE for the next 4 weeks. Plan for the knee is Jul 29 she is going to harvest bone marrow from the area- stimulate the area to increase blood flow. Pain is in the posterior knee- and the upper calf- she has had phases of discoloration- Worst: 10/10 Agg: walking to long, standing for to long, sitting in one position to long. She is unable to do stairs. Sleep: disturbed. - Objective Posture: FH, RS- can correct but does not maintain. Gait: axillary crutches: NWB on her left LE. WB with crutches- increased weight through her arms and fear of placing foot flat on the ground- Single Crutch: step to gait pattern with slow jose. HR/TR: able seated. SLS: weight shift but fear or pain and buckling. ROM: WFL in all planes. Flex: HS: severe, Gastroc: severe. Strength: Core: poor, Hip: flexion: 4/5, Abd: 4/5, Add: 4+/5 IR/ER: 4-/5, Knee: quad set: visible and can SLR without lag (will take dynometric measurements next visit). Ankle: 5/5. Observation: atrophy of the left LE in the quad, gastroc and glut - Balance/Special Test Scores Lower Extremity Functional Score: 8 - Goals Goal 1:: Patient will be I with HEP and progression Goal Time Frame: 4-6 Weeks Goal 2:: Patient will ambulate >300 feet with a normalized gait pattern and LRD Goal Time Frame: 4-6 Weeks Goal 3:: Patient will asc/desc 8 stairs recip with 1 HR Goal Time Frame: 4-6 Weeks Goal 4:: Patient will report 80% improvement Goal Time Frame: 4-6 Weeks - Rehabilitation Potential Physical Therapy Diagnosis: Patient presents with hypomobility- she has decreased LE and core strength/stabilization, proprioception, flex and muscular endurance leading to poor posture, abnormal gait pattern and decreased ability to perform ADL's. Rehabilitation Potential: Good - Anticipated Interventions Patient/Client Instruction: Educate patient on: Benefits of Fitness Program Therapeutic Exercise to Include: Strength training, Endurance training, Balance training, Coordination, Agility training, Body mechanics, Postural training, Flexibilty training, Gait and locomotor training, Neuromotor development, Dynamic Lumbar Stabilization, Scapular Strength/Stabilization Thank you for the opportunity to evaluate your patient. For Medicare and Medicare HMO plans, please review the plan of care and approve it. It will need to be FAXED BACK to us at [phone] for Medicare purposes. For Medicare only, by signing this I certify the plan of care. Please let me know if there are questions or concerns regarding this plan of care. Physician Signature: Date:
--- NOTE | 2022-08-19 10:53 | HP.PTREVAL ---
BRANDY SANTOS, It has been my pleasure to treat PATO UMAÑA over the last 11 visits for Left ACL. Please see the progress note below for an update on the physical therapy plan of care! Subjective: Saw the MD who said she has had three muscle groups that did not Objective/Function: Strength Measures: Hip Flexion: Left: 43 Right: 40 Abd Left: 63 Right: 70 Hip Extn: Left: 52 Right: 48 ER: Right: 41 Left: 40 IR: Right: 34 Left: 30. Knee: Flexion: Left: 40 Right: 49 Extn: Left: 53 Right: 50. Girth: 6 above Patella: Left: 49 Right: 50.5 6 below: Right: 30. Left: 29.5 Plan Plan: 08/19/22: Continue with current POC 2x a week for 6 weeks. Focus on LE and core strength/stabilization and functional mobility. HEP Given IE: Weight shifting, HS Stretching, Gastroc Stretching, Quad sets, SLR Balance/Gait/Functional tests - Balance/Special Test Scores Lower Extremity Functional Score: 8 Goals Goal 1:: Patient will be I with HEP and progression Goal Time Frame: 4-6 Weeks Goal 2:: Patient will ambulate >300 feet with a normalized gait pattern and LRD Goal Time Frame: 4-6 Weeks Goal 3:: Patient will asc/desc 8 stairs recip with 1 HR Goal Time Frame: 4-6 Weeks Goal 4:: Patient will report 80% improvement Goal Time Frame: 4-6 Weeks Anticipated Interventions Patient/Client Instruction: Educate patient on: Benefits of Fitness Program Therapeutic Exercise to Include: Strength training, Endurance training, Balance training, Coordination, Agility training, Body mechanics, Postural training, Flexibilty training, Gait and locomotor training, Neuromotor development, Dynamic Lumbar Stabilization, Scapular Strength/Stabilization Please do not hesitate to contact me at [phone] by phone or if you have questions or concerns regarding this new plan of care! Sincerely, Jessie Li DPT
--- NOTE | 2022-11-02 14:32 | HP.PTREVAL ---
Dr. Meg Sadler MD, It has been my pleasure to treat PATO UMAÑA over the last 24 visits for Left ACL. Please see the progress note below for an update on the physical therapy plan of care! Subjective: Pt reports that her knee is better. She reports that her L knee started swelling in her HS and gastroc from sitting in the car. She did ok walking outside for 30 min. She still has help at home with her housework. She still does not have endurance and can not walk more than 30 min cause she has to ice and elevate. On stairs she is fine (she does not use them cause she does not have too but feels she can do them once a day). She is not back to her normal activities (5,000 square feet). She does not clean her house and she can not do yard work. She can do partial laundry. She can not cook the meal and complete all the dishes etc. Last assessment she was not doing her laundry yet. She takes tramadol everyday for her back pain. At D/C she will join this gym and continue. She is walking on her TM at home for 10 min. She does not do a lot of cardio yet. Objective/Function: LE MMT: R hip flex 15.4 and L hip flex 13.8. R knee ext 25 and L knee 25.3. R knee flex 12.3 and L 15.1. SLB 30 sec B. Stairs: up and down recip with no handrail but has a wider ABISAI. walking on heels and toes pt is able too. Pt L gastroc appears slightly decrease girth compared to the R. Gait: walks with very slightly decrease stance time on the Plan Plan: 11/02/22 work on I gym routine, calf strength, glut strength, stairs, eccentric L knee strength. Focus on LE and core strength/stabilization and functional mobility. HEP Given IE: Weight shifting, HS Stretching, Gastroc Stretching, Quad sets, SLR Balance/Gait/Functional tests - Balance/Special Test Scores Lower Extremity Functional Score: 45 Goals Goal 1:: Be I with own gym routine for exercise progression Goal Time Frame: 4-6 Weeks Goal Progress: Goal Met Goal 2:: Patient will ambulate >300 feet with a normalized gait pattern and LRD Goal Time Frame: 4-6 Weeks Goal Progress: Progressing Goal 3:: Patient will asc/desc 8 stairs recip with 1 HR with smaller ABISAI and good eccentric control Goal Time Frame: 4-6 Weeks Goal Progress: Progressing Goal 4:: Patient will report 80% improvement Goal Time Frame: 4-6 Weeks Goal Progress: Progressing Goal 5:: Improve L LE strength (R hip flex 15.4 and L hip flex 13.8. R knee ext 25 and L knee 25.3. R knee flex 12.3 and L 15.1) Goal Time Frame: 4-6 Weeks Anticipated Interventions Patient/Client Instruction: Educate patient on: Benefits of Fitness Program Therapeutic Exercise to Include: Strength training, Endurance training, Balance training, Coordination, Agility training, Body mechanics, Postural training, Flexibilty training, Gait and locomotor training, Neuromotor development, Dynamic Lumbar Stabilization, Scapular Strength/Stabilization Please do not hesitate to contact me at [phone] by phone or if you have questions or concerns regarding this new plan of care! Sincerely, Margaret Oliva, MPT
--- NOTE | 2022-12-08 11:10 | HP.PT.NRP ---
Patient Information Patient Information: PATO UMAÑA was seen in my office for initial evaluation on 07/08/22. The following Plan of Care was established for this patient: POC Established Initial Frequency: 3x /Week Initial Duration: 4 Weeks Anticipated Interventions Patient/Client Instruction: Educate patient on: Benefits of Fitness Program Therapeutic Exercise to Include: Strength training, Endurance training, Balance training, Coordination, Agility training, Body mechanics, Postural training, Flexibilty training, Gait and locomotor training, Neuromotor development, Dynamic Lumbar Stabilization and Scapular Strength/Stabilization Last Seen Last Seen: This patient was last seen in our office . Pertinent comments regarding their Physical therapy will appear below: At this point I will be discontinuing this patient from physical therapy. I would be happy to see this patient again in the future if found appropriate by the physician. Thank you! Margaret Oliva, MINI Balance/Gait/Functional tests Balance/Special Test Scores Lower Extremity Functional Score: 45
--- NOTE | 2023-02-03 09:43 | HP.PT.NRP ---
Patient Information Patient Information: PATO UMAÑA was seen in my office for initial evaluation on 07/08/22. The following Plan of Care was established for this patient: POC Established Initial Frequency: 3x /Week Initial Duration: 4 Weeks Anticipated Interventions Patient/Client Instruction: Educate patient on: Benefits of Fitness Program Therapeutic Exercise to Include: Strength training, Endurance training, Balance training, Coordination, Agility training, Body mechanics, Postural training, Flexibilty training, Gait and locomotor training, Neuromotor development, Dynamic Lumbar Stabilization and Scapular Strength/Stabilization Last Seen Last Seen: This patient was last seen in our office . Pertinent comments regarding their Physical therapy will appear below: Patient continues with massage therapy- appropriate to be d/c from PT at this time and continue HEP At this point I will be discontinuing this patient from physical therapy. I would be happy to see this patient again in the future if found appropriate by the physician. Thank you! Jessie Li, DPT Balance/Gait/Functional tests Balance/Special Test Scores Lower Extremity Functional Score: 45
== END 2022-11-18 19:00 | disposition home or self-care (01) ==
LOC: PT 12:30
PROVIDERS: PCP Family Medicine; Visit Provider Urology
DX: S83.512D Sprain of anterior cruciate ligament of left knee, subsequent encounter (principal)
CPT/HCPCS: 97110; 97162; 97164; 97530

== ENCOUNTER → 2023-03-22 | Outpatient (CLI) | payer SELFPAY ==
[2023-03-22 16:08] LABS: AST(SGOT) 9 U/L (15-37); Alanine Aminotransfer ALT/SGPT 21 U/L (13-56); Albumin, Serum 3.6 g/dL (3.2-5.0); Alkaline Phosphatase 61 U/L (45-117); Anion Gap 5 (5-15); BUN 16 mg/dL (7-18); BUN/Creat Ratio 22.5 RATIO (10-20); Calcium,Total 9.3 mg/dL (8.5-10.1); Chloride 104 mmol/L (98-107); Creatinine, Serum 0.71 mg/dL (0.55-1.02); EST Glomerular Filtration Rate 93 mL/min (>60); Est Glom Filt Rate - Afr Amer 112 mL/min (>60); Globulin 3.5 g/dL (2.2-4.2); Glucose 94 mg/dL (74-106); Potassium 3.5 mmol/L (3.5-5.1); Protein, Total 7.1 g/dL (6.4-8.2); Sodium Level 138 mmol/L (136-145)
[2023-03-22 16:24] LABS: PTHIN 48.8 pg/mL (18.4-80.1)
== END | disposition home or self-care (01) ==
LOC: MTLAB 11:34
PROVIDERS: PCP Family Medicine; Referring Provider Family Medicine; Visit Provider Family Medicine
DX: E83.52 Hypercalcemia (principal)
CPT/HCPCS: 36415; 80053; 83970

== ENCOUNTER → 2023-10-06 | Outpatient (CLI) | payer SELFPAY | END | disposition home or self-care (01) | PROVIDERS: PCP Family Medicine; Referring Provider Nurse Practitioner Family; Visit Provider Nurse Practitioner Family | DX: N89.8 Other specified noninflammatory disorders of vagina (principal) | CPT/HCPCS: 87070; 87205 ==

== ENCOUNTER → 2023-11-30 | Outpatient (CLI) | payer SELFPAY ==
[2023-12-06 12:10] LABS: HPV APTIMA, High Risk Negative (Negative)
== END | disposition home or self-care (01) ==
PROVIDERS: PCP Family Medicine; Visit Provider Nurse Practitioner Family
DX: Z12.4 Encounter for screening for malignant neoplasm of cervix (principal)
CPT/HCPCS: 87624; 88175; G0145

== ENCOUNTER → 2024-09-06 | Outpatient (CLI) | payer OTHER, SELFPAY ==
[2024-09-06 17:37] LABS: Absolute Lymphocyte Count 2.17 X10^3/uL (0.83-4.51); Absolute Neutrophil Count 4.7 X10^3/uL (2.0-7.7); Basophil# 0.06 X10^3/uL; Basophil% 0.8 % (0-1); Eosinophil# 0.06 X10^3/uL; Eosinophils% 0.8 % (0-5); Hematocrit 38.1 % (37-47); Hemoglobin 12.6 g/dL (12.0-15.0); Lymphocyte # 2.17 X10^3/ul (0.83-4.51); Lymphocyte % 28.3 % (19-41); Mean Corp Hgb Conc 33.1 g/dL (32-36); Mean Corpuscular Hgb 31.3 pg (27.0-32.0); Mean Corpuscular Volume 94.5 fL (81-99); Mean Platelet Vol. 10.2 fl (6.2-12.0); Monocyte# 0.65 X10^3/uL; Monocyte% 8.5 % (0-10); NRBC Flagged by Analyzer 0 % (0-5); Neutrophil # 4.69 X10^3/uL (2.7-7.7); Neutrophil % 61.2 % (47-70); Platelet Count 325 K/mm3 (150-450); RBC Distribution Width CV 12.6 % (11.6-14.6); RBC Distribution Width SD 43.8 fl (35.1-43.9); Red Blood Count 4.03 M/mm3 (4.2-5.4); White Blood Count 7.7 K/mm3 (4.4-11.0)
[2024-09-06 17:39] LABS: AST(SGOT) 18 U/L (<=31); Alanine Aminotransfer ALT/SGPT 25 U/L (<=34); Albumin, Serum 4.6 g/dL (3.5-5.0); Alkaline Phosphatase 75 U/L (35-104); Anion Gap 10 (5-15); BUN 8 mg/dL (4-19); BUN/Creat Ratio 12.4 RATIO (10-20); Calcium,Total 9.9 mg/dL (7.6-11.0); Carbon Dioxide 26.6 mmol/L (21.0-32.0); Chloride 104 mmol/L (98-108); Creatinine, Serum 0.68 mg/dL (0.70-1.20); EST Glomerular Filtration Rate 106 (>60); Globulin 2.3 g/dL (2.2-4.2); Glucose 103 mg/dL (70-99); Potassium 4.4 mmol/L (3.3-5.1); Protein, Total 6.9 g/dL (5.9-8.4); Sodium Level 141 mmol/L (133-145); Total Bilirubin 0.27 mg/dL (0.00-1.30)
== END | disposition home or self-care (01) ==
LOC: LABSPEC 15:39
PROVIDERS: PCP Family Medicine; Referring Provider Nurse Practitioner Family; Visit Provider Nurse Practitioner Family
DX: R53.83 Other fatigue (principal); R06.00 Dyspnea, unspecified; G89.29 Other chronic pain
CPT/HCPCS: 80053; 85025

== ENCOUNTER 2024-10-26 05:27 | Emergency (ER) | payer SELFPAY ==
[2024-10-26 05:30] VITALS: BP 164/90; PULSE 93; RESP 18; TEMP 36.7; O2SAT 100; BMI 29.0
--- NOTE | 2024-10-26 06:18 | EKG12_ITS ---
Test Reason : DYSRHYTHMIA Blood Pressure : */* mmHG Vent. Rate : 87 BPM Atrial Rate : 87 BPM P-R Int : 140 ms QRS Dur : 96 ms QT Int : 366 ms P-R-T Axes : 74 62 53 degrees QTcB Int : 440 ms Normal sinus rhythm Normal ECG Confirmed by LILIA COLLINS, REJI ([id number]), newspaper copy editor PATO ESCOBAR ([id number]) on 10/30/2024 6:59:46 AM Referred By: Confirmed By: REJI RODRIGUES MD
[2024-10-26] MEDS: 0.9% Normal Saline (1000mL) 1,000 ML 999 ML IV (06:34)
[2024-10-26 06:38] LABS: Absolute Lymphocyte Count 1.51 X10^3/uL (0.83-4.51); Absolute Neutrophil Count 5.4 X10^3/uL (2.0-7.7); Basophil# 0.04 X10^3/uL; Basophil% 0.5 % (0-1); Eosinophil# 0.02 X10^3/uL; Eosinophils% 0.3 % (0-5); Hematocrit 37.3 % (37-47); Lymphocyte # 1.51 X10^3/ul (0.83-4.51); Lymphocyte % 19.7 % (19-41); Mean Corp Hgb Conc 34.9 g/dL (32-36); Mean Corpuscular Hgb 32.2 pg (27.0-32.0); Mean Corpuscular Volume 92.3 fL (81-99); Mean Platelet Vol. 9.6 fl (6.2-12.0); Monocyte# 0.65 X10^3/uL; Monocyte% 8.5 % (0-10); NRBC Flagged by Analyzer 0 % (0-5); Neutrophil # 5.42 X10^3/uL (2.7-7.7); Neutrophil % 70.5 % (47-70); Platelet Count 302 K/mm3 (150-450); RBC Distribution Width CV 12.2 % (11.6-14.6); RBC Distribution Width SD 41.5 fl (35.1-43.9); Red Blood Count 4.04 M/mm3 (4.2-5.4); White Blood Count 7.7 K/mm3 (4.4-11.0)
[2024-10-26 06:41] LABS: Mucous, Urine 0 SEEN /hpf (<or=2+); Red Blood Cells-Urine 0 SEEN /hpf (0-5)
[2024-10-26 06:42] LABS: Color, Urine Straw (Yellow); Glucose, Dipstick Normal (Normal); Ketone-Dipstick 15 mg/dl (Negative); Leukocyte Esterase-Dipstick Negative /ul (Negative); Nitrite-Dipstick Negative (Negative); Occult Blood-Urine Negative /ul (Negative); Protein-Dipstick Negative (Negative); Urine Bilirubin Dipstick Negative (Negative); Urine Clarity Turbid (Clear); Urine Urobilinogen Normal (Normal); Urine pH 6.5 (5.0 - 8.0)
[2024-10-26 06:49] LABS: Bacteria 2+ /hpf (None Seen); Squamous Epithelial Cells - UA 5-10 SEEN /hpf (5-10); White Blood Cells 0-5 SEEN /hpf (0-5)
--- NOTE | 2024-10-26 06:52 | EDS_ITS ---
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 Patient states that she came to the emergency department as she is concerned that she is having a reaction to the medications she has been given. She states that she developed this her condition and had been seen multiple doctors for this and states that she and doctors overall have not had much success therefore she follows up with a different type of provider usually. Patient notes that she tried topical ivermectin and now has been on oral ivermectin she states that she is on it for a period time and then off for a week. States that she just completed the off portion and noted that she took double the dose that she normally supposed to take per the recommendation of the provider that is prescribing this. Patient also notes that she was referred to a compounding pharmacy and was given naltrexone which she took 0.25 mL of this. She states that she took it 2 days prior and yesterday and then today. She notes that after tonight's dose with the ivermectin she felt off and did not feel her normal self therefore she was panicking and came here as she was concerned that she was having allergic reaction. [facility] Medical History Fear of travel with panic attacks Tachycardia Fatigue Vitamin D deficiency Anxiety Fluctuating blood pressure Intermittent palpitations SOB (shortness of breath) Abnormal finding on thyroid function test Dyspareunia Urge incontinence Urinary tract infection Hypertension Neck pain Back pain Insomnia Home Medications ?Medication ?Instructions ?Recorded ?Last Taken ?Type tramadol 50 mg tablet 50 mg PO DAILY 02/28/19 Unkn own History clonazepam 0.5 mg tablet 0.5 mg PO QHS 09/10/2210/26 History metoprolol succinate 25 mg 25 mg PO BID 09/10/22 Unkno wn History tablet,extended release 24 hr cyclobenzaprine 10 mg tablet 10 mg PO TID 10/26/24 Unk nown History gabapentin 100 mg capsule 100 - 200 mg PO DAILY PRN pa in 10/26/24 Unknown History Allergy/AdvReac Type Severity Reaction Status Date / Time Quinolones Allergy Hives Verified 11/30/23 08:42 Sulfa (Sulfonamide Allergy Hives Verified 11/30/23 08:42 Antibiotics) azithromycin (From Zithromax AdvReac Upset Verified 11/30/23 08:42 Z-Boubacar) Stomach Family History Father Hypertension Yesica-Danlos syndrome Mother Breast cancer Hypertension Grandfather Heart disease Diabetes Hypertension CVA (cerebral vascular accident) Grandmother Hypertension Thyroid disorder Breast cancer CVA (cerebral vascular accident) Aunt Thyroid disorder CVA (cerebral vascular accident) Yesica-Danlos syndrome Surgical History Status post glaucoma surgery S/P S/P sinus surgery s/p left shoulder surgery Social History Smoking Status: Never smoker alcohol intake: current details: occasionally substance use type: does not use caffeine: Yes what type of physical activity do you participate in: walking frequency: 3-4 times per week duration: 15-30 minutes/day seatbelt use: always do you feel safe at home: Yes additional social history: Imjdfgn-Xzzbq-Bbieyaywaqnf 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 ROS Narrative Constitutional: Denies any fevers or chills lightheadedness or dizziness Eyes: Denies double vision blurry vision Cardiovascular: Denies chest pain Respiratory: Denies shortness of breath coughing Abdomen: Denies vomiting or diarrhea denies abdominal pain : Denies urinary symptoms Neurological: Denies numbness, weakness, tingling Musculoskeletal: Denies back pain Skin: Denies rashes or lesions EXAM Physical Exam Narrative Exam Narrative: General: Patient lying in bed rest comfortably did not appear to be in acute distress Head: Atraumatic, normocephalic Eyes: PERRL bilateral, EOMI bilateral, no conjunctival injection noted Neck: Soft, supple trachea midline Cardiovascular: Regular rate and rhythm no murmurs gallops rubs noted Respiratory: Clear to auscultation bilaterally no rales rhonchi or wheezes noted Abdomen: Soft, nondistended, nontender to palpation, bowel sounds present x 4 Musculoskeletal: All joints taken through full range of motion all bony prominences palpated no tenderness palpation no pain with range of motion. No tenderness palpation midline of the cervical, thoracic lumbar spine Extremities: +5/5 strength noted to bilateral lower extremities, radial pulses +2/4 in the bilateral extremities Neurological: Patient following commands knew that she was at [facility] years 2024 Skin: Warm, dry, intact no rashes or lesions noted no petechia no purpura noted no intraoral lesions noted Psychiatric: Patient has pressured speech Const Vital Signs: 10/26/24 05:30 Temperature 98.1 F Temperature Source Oral Pulse Rate 93 Respiratory Rate 18 Blood Pressure 164/90 H Blood Pressure Mean 114 Pulse Ox 100 Oxygen Delivery Method Room Air MDM MDM MDM Narrative Medical decision making narrative: Patient is a 49-year-old female who presented to the emergency department with a chief complaint of concern for allergic reaction to ivermectin and naltrexone. On the differential diagnose includes but limited to allergic reaction, anxiety, panic attack, pressured speech. Once workup is obtained reviewed she will be reevaluated. Patient CBC was reviewed and showed no leukocytosis white blood count was 10.7, hemoglobin is 13, platelet count was noted to be 302. Patient's chemistries are pending. Patient urinalysis reviewed and showed negative leukocyte esterase negative nitrites 0-5 white cells with 2+ bacteria she does not have any urinary symptoms we will hold off on treating. Patient's EKG reviewed and showed sinus rhythm with a rate of 87 bpm. Patient's case will be signed out to oncoming provider see their note for ultimate details and ultimate disposition. Lab Data Labs: Laboratory Results - last 24 hr 10/26/24 10/26/24 06:24 06:32 WBC 7.7 RBC 4.04 L Hgb 13.0 Hct 37.3 MCV 92.3 MCH 32.2 H MCHC 34.9 RDW Std Deviation 41.5 RDW Coeff of Prem 12.2 Plt Count 302 MPV 9.6 Immature Gran % (Auto) 0.500 Neut % (Auto) 70.5 H Lymph % (Auto) 19.7 [place] % (Auto) 8.5 Eos % (Auto) 0.3 Baso % (Auto) 0.5 Absolute Neuts (auto) 5.4 Absolute Lymphs (auto) 1.51 Nucleated RBC % 0 Urine Color Straw Urine Clarity Turbid Urine pH 6.5 Ur Specific [place] 1.010 Urine Protein Negative Urine Glucose (UA) Normal Urine Ketones 15 H Urine Occult Blood Negative Urine Nitrite Negative Urine Bilirubin Negative Urine Urobilinogen Normal Ur Leukocyte Esterase Negative Urine RBC 0 SEEN Urine WBC 0-5 SEEN Ur Squamous Epith Cells 5-10 SEEN Urine Bacteria 2+ Urine Mucus 0 SEEN Discharge Plan Triage Chief Complaint: Allergic Reaction ED Provider: Ramesh Coffey Dx/Rx/DC Orders Prescriptions: No Action tramadol 50 mg tablet 50 mg PO DAILY metoprolol succinate 25 mg tablet extended release 24 hr 25 mg PO BID Patient Comments: take 1 tablet by mouth twice a day clonazepam 0.5 mg tablet 0.5 mg PO QHS Patient Comments: take 1 tablet by mouth at bedtime MAY USE 1 ADDITIONAL TABLET NEEDED DURING THE DAY cyclobenzaprine 10 mg tablet 10 mg PO TID gabapentin 100 mg capsule 100 - 200 mg PO DAILY PRN (Reason: pain) Primary Care Provider: Elinor Aguilar NP Referrals: Elinor Aguilar NP, FOREIGN LEGAL CONSULTANT-C [Primary Care Provider] - Activity Restrictions/Additional Instructions: Follow-up with your doctor in the outpatient setting. Return with worsening symptoms or concerns. Print Language: Ethiopian
[2024-10-26 08:16] LABS: ALB/GLOB Ratio 1.6 RATIO (0.9-2.4); AST(SGOT) 36 U/L (<=31); Alanine Aminotransfer ALT/SGPT 49 U/L (<=34); Albumin, Serum 4.6 g/dL (3.5-5.0); Alkaline Phosphatase 68 U/L (35-104); Anion Gap 14 (5-15); BUN 9 mg/dL (4-19); BUN/Creat Ratio 12.6 RATIO (10-20); Calcium,Total 9.7 mg/dL (7.6-11.0); Carbon Dioxide 22.4 mmol/L (21.0-32.0); Chloride 103 mmol/L (98-108); EST Glomerular Filtration Rate 105 (>60); Estimated Creatinine Clearance 102.34 ml/min (50-250); Globulin 2.8 g/dL (2.2-4.2); Glucose 123 mg/dL (70-99); Lipase 28 U/L (13-75); Potassium 4.1 mmol/L (3.3-5.1); Protein, Total 7.4 g/dL (5.9-8.4); Sodium Level 139 mmol/L (133-145); Total Bilirubin 0.86 mg/dL (0.00-1.30)
[2024-10-26 08:23] LABS: Troponin T High Sensitivity 7 ng/L (<=14)
[2024-10-26 08:30] VITALS: BP 164/90; PULSE 93; RESP 18; TEMP 36.7; O2SAT 100
[2024-10-26] MEDS: Ondansetron 4 MG/2 ML Vial IV (08:39)
== END 2024-10-26 08:49 | disposition home or self-care (01) ==
PROVIDERS: Emergency Provider Emergency Medicine; PCP Nurse Practitioner Family; Visit Provider Emergency Medicine
DX: T78.40XA Allergy, unspecified, initial encounter (principal); F41.9 Anxiety disorder, unspecified; I10 Essential (primary) hypertension
CPT/HCPCS: 80053; 81001; 83690; 84484; 85025; 93005; 96361; 96374; 99285; A4216; J2405

== ENCOUNTER 2024-10-31 07:18 | Emergency (ER) | payer SELFPAY ==
[2024-10-31 07:20] VITALS: BP 185/101; PULSE 107; RESP 20; TEMP 36.9; O2SAT 98; BMI 27.7
--- NOTE | 2024-10-31 07:36 | EKG12_ITS ---
Test Reason : Blood Pressure : */* mmHG Vent. Rate : 90 BPM Atrial Rate : 90 BPM P-R Int : 128 ms QRS Dur : 90 ms QT Int : 350 ms P-R-T Axes : 78 74 81 degrees QTcB Int : 428 ms Normal sinus rhythm Normal ECG Confirmed by JENNYFER RICHMOND ([id number]), editor at large PATO ESCOBAR ([id number]) on 11/05/2024 8:05:56 AM Referred By: Confirmed By: JENNYFER RICHMOND
--- NOTE | 2024-10-31 07:37 | EDS_ITS ---
HPI History of Present Illness Chief Complaint: General Illness Narrative Narrative: 49-year-old female presents with concern for allergic reaction versus polypharmacy. She stated that she thinks that she is having a serotonin syndrome. She is also on multiple medications. She takes cyclobenzaprine, clonazepam, gabapentin, and metoprolol for hypertension. She states that she was started on naltrexone as well as ivermectin. Of note she was seen in the emergency department last week on , approximately 6 days ago where she was concerned that she was having an allergic type reaction. She states she wakes up with dry mouth and feeling tense. Additionally, she feels her heart racing. Her blood pressure is elevated at times. She states that she woke up with a pink rash all over. She is concerned that with her polypharmacy, she stopped taking her medications, and that she might need observation to make sure she does not have a seizure. 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 [facility] Medical History Fear of travel with panic attacks Tachycardia Fatigue Vitamin D deficiency Anxiety Fluctuating blood pressure Intermittent palpitations SOB (shortness of breath) Abnormal finding on thyroid function test Dyspareunia Urge incontinence Urinary tract infection Hypertension Neck pain Back pain Insomnia Home Medications ?Medication ?Instructions ?Recorded ?Last Taken ?Type tramadol 50 mg tablet 50 mg PO DAILY 02/28/19 Unkn own History clonazepam 0.5 mg tablet 0.5 mg PO QHS 09/10/2210/26 History metoprolol succinate 25 mg 25 mg PO BID 09/10/22 Unkno wn History tablet,extended release 24 hr cyclobenzaprine 10 mg tablet 10 mg PO TID 10/26/24 Unk nown History gabapentin 100 mg capsule 100 - 200 mg PO DAILY PRN pa in 10/26/24 Unknown History Allergy/AdvReac Type Severity Reaction Status Date / Time Quinolones Allergy Hives Verified 10/31/24 07:24 Sulfa (Sulfonamide Allergy Hives Verified 10/31/24 07:24 Antibiotics) azithromycin (From Zithromax AdvReac Upset Verified 10/31/24 07:24 Z-Boubacar) Stomach Family History Father Hypertension Yesica-Danlos syndrome Mother Breast cancer Hypertension Grandfather Heart disease Diabetes Hypertension CVA (cerebral vascular accident) Grandmother Hypertension Thyroid disorder Breast cancer CVA (cerebral vascular accident) Aunt Thyroid disorder CVA (cerebral vascular accident) Yesica-Danlos syndrome Surgical History Status post glaucoma surgery S/P S/P sinus surgery s/p left shoulder surgery Social History Smoking Status: Never smoker alcohol intake: current details: occasionally substance use type: does not use caffeine: Yes what type of physical activity do you participate in: walking frequency: 3-4 times per week duration: 15-30 minutes/day seatbelt use: always do you feel safe at home: Yes additional social history: Lfujser-Yhlrz-Gwirckpcxzhn 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 HEENT: No sore throat. No neck pain. Positive dry mouth no rhinorrhea. Cardiovascular: No chest pain. Positive palpitations. No pedal edema. Respiratory: No cough, no shortness of breath. Abdominal: No abdominal pain. No nausea. No vomiting. Genitourinary: No dysuria. No hematuria. Musculoskeletal: No myalgias. No arthralgias. Positive muscle contractions. Neurologic: No headaches. No dizziness. No lightheadedness. Skin: Reported pink rash. No change in color. Psychiatric: No depression. No anxiety. EXAM Physical Exam Narrative Exam Narrative: Afebrile. Vital signs noted. Nontoxic-appearing. Cardiovascular semination reveals mild tachycardia. Lungs are clear to auscultation bilaterally. Abdomen is soft and nontender without guarding or rebound. Neurological examination nonfocal, nonlateralizing. Able to transfer to and from cot. Able to stand and walk in emergency department. Psychiatric examination reveals positive anxiety and positive flight of ideas. Const Vital Signs: 10/31/24 07:20 10/31/24 07:27 10/31/24 09:20 Temperature 98.4 F Temperature Source Oral Pulse Rate 107 H 88 Respiratory Rate 20 H 19 H Respiratory Pattern Tachypnea Blood Pressure 185/101 H 143/94 H Blood Pressure Mean 129 110 Pulse Ox 98 98 Oxygen Delivery Method Room Air 10/31/24 11:00 Temperature Temperature Source Pulse Rate 114 H Respiratory Rate 20 H Respiratory Pattern Blood Pressure 157/81 H Blood Pressure Mean 106 Pulse Ox 18 Oxygen Delivery Method Room Air MDM MDM MDM Narrative Medical decision making narrative: The differential diagnosis does include but not limited to panic attack versus medication reaction versus anxiety. I have low suspicion for serotonin syndrome as she states she has not been taking her medications for the last few days. I reviewed her prior records. She had basic laboratory work. She states that she wants to be checked to make sure that she is not to have a seizure. She states additionally that she was told not to take her benzodiazepines but to continue her metoprolol. Interpretation of her EKG by myself independently demonstrates normal sinus rhythm at 90 bpm without ectopy or acute ST changes. No STEMI. I reviewed her laboratory work, and she has normal white count of 9.4 with hemoglobin 13.5, hematocrit 38.9, platelet count 314. CMP shows creatinine low at 0.60 LFTs grossly unremarkable. Serum is negative. Urine for drugs of abuse is also negative. Alcohol level is negative as well. Her repeat blood pressure was low at 143 systolic. At rest, she is not tachycardic. She becomes anxious as she still feels that she is having serotonin syndrome. However, I do not feel that she has serotonin syndrome and that she is afebrile here as well so she does not have neuroleptic malignant syndrome. I feel this is all related to anxiety. I attempted to explain to her that she is not meeting observation criteria, but she was almost insistent that I discuss her case with the hospitalist. I did discuss patient with Dr. Forrest and it was agreed that she is going through benzodiazepine withdrawal as she is only on 0.5 mg nightly, and she is not in serotonin syndrome currently.. In discussion with the patient, she states that she is agreeable to discharge and that she is going to follow-up with Dr. Layne who is one of her providers. I do feel that she can be discharged to follow-up as she is not meeting any observation or admission criteria currently. Disposition is discharged in stable condition. History & Record Review Discussion w/independent historian: Patient Additional record(s) reviewed:: Prior ED visit and Prior labs Lab Data Attestation: I reviewed the patient's lab results. Labs: Laboratory Results - last 24 hr 10/31/24 10/31/24 07:42 08:21 WBC 9.4 RBC 4.19 L Hgb 13.5 Hct 38.9 MCV 92.8 MCH 32.2 H MCHC 34.7 RDW Std Deviation 42.2 RDW Coeff of Prem 12.6 Plt Count 314 MPV 9.9 Immature Gran % (Auto) 0.500 Neut % (Auto) 74.6 H Lymph % (Auto) 16.8 L [place] % (Auto) 7.4 Eos % (Auto) 0.1 Baso % (Auto) 0.6 Absolute Neuts (auto) 7.0 Absolute Lymphs (auto) 1.57 Nucleated RBC % 0 Sodium 137 Potassium 3.8 Chloride 101 Carbon Dioxide 23.6 Anion Gap 12 BUN 9 Creatinine 0.60 L Estim Creat Clear Calc 116.86 Est GFR (MDRD) Non-Af 108 BUN/Creatinine Ratio 14.4 Glucose 133 H Calcium 9.7 Total Bilirubin 0.86 AST 22 ALT 33 Alkaline Phosphatase 65 Total Protein 7.1 Albumin 4.6 Globulin 2.5 Albumin/Globulin Ratio 1.8 Serum , Qual NEGATIVE Urine Opiates Screen NEGATIVE U Buprenorphine Qual NEGATIVE Ur Oxycodone Screen NEGATIVE Urine Methadone Screen NEGATIVE Urine Fentanyl Screen NEGATIVE Ur Barbiturates Screen NEGATIVE Ur Phencyclidine Scrn NEGATIVE Ur Amphetamines Screen NEGATIVE U Benzodiazepines Scrn NEGATIVE Urine Cocaine Screen NEGATIVE U Cannabinoids Screen NEGATIVE Ethyl Alcohol < 10.1 Discharge Plan Triage Chief Complaint: General Illness Other Complaint: Anxiety ED Provider: Jose Alexis Dx/Rx/DC Orders Clinical Impression: Anxiety, Hypertension, Palpitations Instructions: ED Anxiety Reaction, ED High Blood Pressure Hypertension Prescriptions: No Action tramadol 50 mg tablet 50 mg PO DAILY metoprolol succinate 25 mg tablet extended release 24 hr 25 mg PO BID Patient Comments: take 1 tablet by mouth twice a day clonazepam 0.5 mg tablet 0.5 mg PO QHS Patient Comments: take 1 tablet by mouth at bedtime MAY USE 1 ADDITIONAL TABLET NEEDED DURING THE DAY cyclobenzaprine 10 mg tablet 10 mg PO TID gabapentin 100 mg capsule 100 - 200 mg PO DAILY PRN (Reason: pain) Primary Care Provider: Elinor Aguilar SITE SAFETY COORDINATOR Referrals: Elinor Aguilar SITE SAFETY COORDINATOR, SITE SAFETY COORDINATOR-C [Primary Care Provider] - As soon as possible Activity Restrictions/Additional Instructions: Follow-up with your primary care provider. Make sure you are taking your antihypertensives especially your metoprolol. Print Language: Faroese Disposition Disposition: Home, Self Care
[2024-10-31] MEDS: 0.9% Normal Saline (1000mL) 1,000 ML 1000 ML IV (07:45)
[2024-10-31 07:58] LABS: Absolute Lymphocyte Count 1.57 X10^3/uL (0.83-4.51); Basophil# 0.06 X10^3/uL; Basophil% 0.6 % (0-1); Eosinophil# 0.01 X10^3/uL; Eosinophils% 0.1 % (0-5); Hematocrit 38.9 % (37-47); Hemoglobin 13.5 g/dL (12.0-15.0); Lymphocyte # 1.57 X10^3/ul (0.83-4.51); Lymphocyte % 16.8 % (19-41); Mean Corp Hgb Conc 34.7 g/dL (32-36); Mean Corpuscular Hgb 32.2 pg (27.0-32.0); Mean Corpuscular Volume 92.8 fL (81-99); Mean Platelet Vol. 9.9 fl (6.2-12.0); Monocyte# 0.69 X10^3/uL; Monocyte% 7.4 % (0-10); NRBC Flagged by Analyzer 0 % (0-5); Neutrophil # 6.98 X10^3/uL (2.7-7.7); Neutrophil % 74.6 % (47-70); Platelet Count 314 K/mm3 (150-450); RBC Distribution Width CV 12.6 % (11.6-14.6); RBC Distribution Width SD 42.2 fl (35.1-43.9); Red Blood Count 4.19 M/mm3 (4.2-5.4); White Blood Count 9.4 K/mm3 (4.4-11.0)
[2024-10-31 08:25] LABS: ALB/GLOB Ratio 1.8 RATIO (0.9-2.4); AST(SGOT) 22 U/L (<=31); Alanine Aminotransfer ALT/SGPT 33 U/L (<=34); Albumin, Serum 4.6 g/dL (3.5-5.0); Alkaline Phosphatase 65 U/L (35-104); Anion Gap 12 (5-15); BUN 9 mg/dL (4-19); BUN/Creat Ratio 14.4 RATIO (10-20); Calcium,Total 9.7 mg/dL (7.6-11.0); Carbon Dioxide 23.6 mmol/L (21.0-32.0); Chloride 101 mmol/L (98-108); EST Glomerular Filtration Rate 108 (>60); Estimated Creatinine Clearance 116.86 ml/min (50-250); Globulin 2.5 g/dL (2.2-4.2); Glucose 133 mg/dL (70-99); Potassium 3.8 mmol/L (3.3-5.1); Protein, Total 7.1 g/dL (5.9-8.4); Sodium Level 137 mmol/L (133-145); Total Bilirubin 0.86 mg/dL (0.00-1.30)
[2024-10-31 08:28] LABS: Alcohol, Blood (Medical)-Serum < 10.1 mg/dL (<=10.0)
[2024-10-31 08:42] LABS: Internal QC Validated? YES +Cl - CLEAR BKGD; Pregnancy, Serum, hCG Quali. NEGATIVE Negative
[2024-10-31 09:16] LABS: Amphetamine Urine NEGATIVE (<1000 ng/mL); Barbiturate Urine NEGATIVE (< 200 ng/mL); Benzodiazepine Urine NEGATIVE (< 200 ng/mL); Buprenorphine Urine NEGATIVE (< 200 ng/mL); Cocaine Urine NEGATIVE (< 300 ng/mL); Fentanyl, Urine NEGATIVE; Methadone Urine NEGATIVE (< 300 ng/mL); Opiates Urine NEGATIVE (< 300 ng/mL); Oxycodone, Urine NEGATIVE (< 100 ng/mL); PCP Urine NEGATIVE (< 25 ng/mL); THC Urine NEGATIVE (< 50 ng/mL)
[2024-10-31 09:20] VITALS: BP 143/94; PULSE 88; RESP 19; O2SAT 98
[2024-10-31 11:00] VITALS: BP 157/81; PULSE 114; RESP 20; O2SAT 18
== END 2024-10-31 12:02 | disposition home or self-care (01) ==
PROVIDERS: Emergency Provider Emergency Medicine; PCP Nurse Practitioner Family; Visit Provider Emergency Medicine
DX: F41.9 Anxiety disorder, unspecified (principal); I10 Essential (primary) hypertension; R00.2 Palpitations; Z79.899 Other long term (current) drug therapy
CPT/HCPCS: 80053; 80307; 82077; 84703; 85025; 93005; 96360; 96361; 99284; A4216

== ENCOUNTER 2024-11-05 15:28 | Emergency (ER) | payer SELFPAY ==
[2024-11-05 15:29] VITALS: BP 166/112; PULSE 93; RESP 16; TEMP 36.8; O2SAT 100; BMI 26.7
[2024-11-05 16:10] VITALS: BP 169/104; PULSE 84; RESP 17; O2SAT 100
--- NOTE | 2024-11-05 16:11 | EKG12_ITS ---
Test Reason : CP Blood Pressure : */* mmHG Vent. Rate : 78 BPM Atrial Rate : 78 BPM P-R Int : 106 ms QRS Dur : 98 ms QT Int : 354 ms P-R-T Axes : 6 55 44 degrees QTcB Int : 403 ms Sinus rhythm with short MS Otherwise normal ECG Confirmed by Alexsander Meza ([id number]), index editor PATO ESCOBAR ([id number]) on 11/06/2024 9:56:44 AM Referred By: Victor Hugo Suh Confirmed By: Alexsander Meza
--- NOTE | 2024-11-05 16:12 | ED.VIS.CHEST ---
HPI History of Present Illness Chief Complaint: Chest Pain Narrative Narrative: Chief complaint and HPI: Chest pain. 49-year-old female with past medical history of anxiety, chronic pain, HTN presents for evaluation of chest pain. Patient states prior to arrival after bending over she obtained left-sided chest pain. Associated symptom is mild shortness of breath and hypertension. Patient states that she has been having a lot of different symptoms over the past week. On chart review, she has been seen in our emergency department on the and . On the she presented for concern of allergic reaction and on the presented for concern of serotonin syndrome. Patient ultimately discharged home. Followed up with physician who is not her PCP who is weaning her off her medications for concern of possible serotonin syndrome. Patient states that she has been frequently checking her blood pressure every hour as it has been high. She states she was checking her blood pressure during this episode. Review of systems: See HPI Medications: As listed on the chart Allergies: As listed on the chart PFSH: Per chart Vital signs: As listed on the chart. Reviewed. Physical exam: Gen: A&O x3, intermittently tearful, anxious Head: Normocephalic, atraumatic Eyes: No sclera icterus, conjunctiva clear, PERRL ENT: Moist mucous membranes Neck: Trachea midline, No JVD CV: RRR, no murmurs, no peripheral edema Resp: Lungs CTA BL, no w/r/c GI: Abd soft, non-distended, non-tender, no r/r/g Musc: Full ROM, no deformity Skin: Warm, dry Neuro: Alert, oriented, grossly intact, sensation intact Psych: Cooperative, appropriate mood and affect [facility] Medical History Fear of travel with panic attacks Tachycardia Fatigue Vitamin D deficiency Anxiety Fluctuating blood pressure Intermittent palpitations SOB (shortness of breath) Abnormal finding on thyroid function test Dyspareunia Urge incontinence Urinary tract infection Hypertension Neck pain Back pain Insomnia Home Medications ?Medication ?Instructions ?Recorded ?Last Taken ?Type clonazepam 0.5 mg tablet 0.5 mg PO Q12H 09/10/22 11/04/24 History metoprolol succinate 25 mg 25 mg PO BID 09/10/22 11/05/24 History tablet,extended release 24 hr lorazepam 0.5 mg tablet (Ativan) 0.5 mg PO BID PRN anxiety 2 days 11/05/24 Unknown Rx #4 tabs Allergy/AdvReac Type Severity Reaction Status Date / Time Quinolones Allergy Hives Verified 10/31/24 07:24 Sulfa (Sulfonamide Allergy Hives Verified 10/31/24 07:24 Antibiotics) azithromycin (From Zithromax AdvReac Upset Verified 10/31/24 07:24 Z-Boubacar) Stomach Family History Father Hypertension Yesica-Danlos syndrome Mother Breast cancer Hypertension Grandfather Heart disease Diabetes Hypertension CVA (cerebral vascular accident) Grandmother Hypertension Thyroid disorder Breast cancer CVA (cerebral vascular accident) Aunt Thyroid disorder CVA (cerebral vascular accident) Yesica-Danlos syndrome Surgical History Status post glaucoma surgery S/P S/P sinus surgery s/p left shoulder surgery Social History Smoking Status: Never smoker alcohol intake: current details: occasionally substance use type: does not use caffeine: Yes what type of physical activity do you participate in: walking frequency: 3-4 times per week duration: 15-30 minutes/day seatbelt use: always do you feel safe at home: Yes additional social history: [employer] 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 EXAM Physical Exam Const Vital Signs: 11/05/24 15:29 11/05/24 15:34 11/05/24 16:10 Temperature 98.2 F Temperature Source Temporal Pulse Rate 93 84 Respiratory Rate 16 17 Respiratory Effort Short of Breath Blood Pressure 166/112 H 169/104 H Blood Pressure Mean 130 125 Pulse Ox 100 100 Oxygen Delivery Method Room Air Room Air 11/05/24 18:24 11/05/24 19:36 Temperature 98 F Temperature Source Pulse Rate 85 85 Respiratory Rate 15 18 Respiratory Effort Blood Pressure 141/91 H 143/90 H Blood Pressure Mean 107 107 Pulse Ox 100 100 Oxygen Delivery Method Room Air MDM MDM MDM Narrative Medical decision making narrative: 49-year-old female with past medical history of anxiety, chronic pain, HTN presents for evaluation of chest pain. Onset prior to arrival with associated shortness of breath and hypertension. On presentation, patient is very anxious and intermittently tearful. Vitals are stable other than hypertension. Differential diagnosis includes but is not limited to anxiety reaction, ACS, PE, electrolyte abnormality, hyperthyroidism. Aspirin and Ativan ordered for symptoms. Cardiac workup ordered. CBC without leukocytosis or anemia. Platelets unremarkable. D-dimer unremarkable. BMP unremarkable without significant electrolyte abnormality or KAMLA. Patient's magnesium mildly elevated at 2.3. TSH unremarkable. Troponin unremarkable x 2. Patient's blood pressure has improved since receiving Ativan and being monitored in the emergency department. On reevaluation, her chest pain has resolved. She is concerned that her symptoms are secondary to serotonin withdrawal. I did explain to her as well as her family that at this point in time I do not have any clinical evidence to suspect this. Unclear etiology for the patient's chest pain however may have been secondary to hypertension versus anxiety reaction. While speaking to the patient she becomes very anxious again in the room which increases her blood pressure which makes symptoms more concerning for anxiety reaction. Patient was educated on following up with her new PCP as she will not be seeing her old PCP. Patient states she takes clonazepam only at night. I did write her for a couple pills of Ativan as needed during the day. She was educated that she cannot take this at night with her clonazepam. She confirmed understanding. Return precautions explained. Monitor blood pressure periodically. EKG: Interpreted by me/EM physician: EKG shows normal sinus rhythm with short MN interval. Heart rate 78. No acute ischemic changes. Diagnostic: Interpreted by me/EM physician: Chest x-ray doubt pneumonia, effusion, cardiomegaly, pneumothorax. Radiology and agreement. Impression: 1. Chest pain, unclear etiology 2. Hypertension with history of hypertension 3. Anxiety Lab Data Labs: Laboratory Results - last 24 hr 11/05/24 11/05/24 16:20 18:15 WBC 6.5 RBC 4.20 Hgb 13.4 Hct 39.4 MCV 93.8 MCH 31.9 MCHC 34.0 RDW Std Deviation 42.7 RDW Coeff of Prem 12.5 Plt Count 290 MPV 9.9 Immature Gran % (Auto) 0.500 Neut % (Auto) 65.8 Lymph % (Auto) 24.7 Wharton % (Auto) 7.7 Eos % (Auto) 0.5 Baso % (Auto) 0.8 Absolute Neuts (auto) 4.3 Absolute Lymphs (auto) 1.60 Nucleated RBC % 0 D-Dimer Quant (PE/DVT) < 0.27 L Sodium 139 Potassium 3.9 Chloride 103 Carbon Dioxide 23.7 Anion Gap 12 BUN 16 Creatinine 0.69 L Estim Creat Clear Calc 103.41 Est GFR (MDRD) Non-Af 105 BUN/Creatinine Ratio 23.7 H Glucose 109 H Calcium 9.7 Magnesium 2.3 H Troponin T High Sens < 6 D Troponin T Hi Sens 2 Hr < 6 TSH 0.524 Radiography Diagnostic Testing: Clinical Impression(s) from Imaging Studies Chest X-Ray 11/05/24 16:45 IMPRESSION: No acute cardiopulmonary abnormality. Reading Location: [id number] Discharge Plan Triage Chief Complaint: Chest Pain ED Provider: Victor Hugo Suh Dx/Rx/DC Orders Clinical Impression: Chest pain, Anxiety Instructions: Understanding Anxiety Disorders, ED Chest Pain, Uncertain Cause Prescriptions: New lorazepam [Ativan] 0.5 mg tablet 0.5 mg PO BID PRN (Reason: anxiety) 2 Days Qty: 4 0RF Rx Instructions: Do not take at night with your clonazepam. No Action metoprolol succinate 25 mg tablet extended release 24 hr 25 mg PO BID Patient Comments: PT STATES SOMETIMES TAKES TID DUE TO ELEVATED BP clonazepam 0.5 mg tablet 0.5 mg PO Q12H Patient Comments: take 1 tablet by mouth at bedtime MAY USE 1 ADDITIONAL TABLET NEEDED DURING THE DAY Primary Care Provider: Care Physician,No Primary Referrals: Marcio Guerrero MD [Med Staff - Active Staff] - 3-5 Days Activity Restrictions/Additional Instructions: Follow-up with your new PCP. If you do not like them follow-up with the one listed above. Return back to the ED if symptoms change or worsen. Ativan as needed for anxiety. This is related to clonazepam. You told me you only take your clonazepam at night. Do not take the Ativan with the clonazepam at night. Instead take it in the morning or during the afternoon if needed for anxiety. Print Language: Cypriot Disposition Disposition: Home, Self Care Discharge Date/Time: 11/05/24 19:42
[2024-11-05] MEDS: Aspirin 81 MG TAB.CHEW 324 MG PO (16:19)
[2024-11-05] MEDS: Lorazepam 2 MG/ML WCH Syringe 0.5 MG IV (16:20)
[2024-11-05 16:29] LABS: Absolute Neutrophil Count 4.3 X10^3/uL (2.0-7.7); Basophil# 0.05 X10^3/uL; Basophil% 0.8 % (0-1); Eosinophil# 0.03 X10^3/uL; Eosinophils% 0.5 % (0-5); Hematocrit 39.4 % (37-47); Hemoglobin 13.4 g/dL (12.0-15.0); Lymphocyte % 24.7 % (19-41); Mean Corpuscular Hgb 31.9 pg (27.0-32.0); Mean Corpuscular Volume 93.8 fL (81-99); Mean Platelet Vol. 9.9 fl (6.2-12.0); Monocyte% 7.7 % (0-10); NRBC Flagged by Analyzer 0 % (0-5); Neutrophil # 4.26 X10^3/uL (2.7-7.7); Neutrophil % 65.8 % (47-70); Platelet Count 290 K/mm3 (150-450); RBC Distribution Width CV 12.5 % (11.6-14.6); RBC Distribution Width SD 42.7 fl (35.1-43.9); White Blood Count 6.5 K/mm3 (4.4-11.0)
[2024-11-05 16:43] LABS: D-Dimer Quantitative (DVT/PE) < 0.27 FEU/ug/m (0.27-0.49)
--- NOTE | 2024-11-05 16:45 | RAD_ITS ---
PROCEDURE: CHEST PA AND LATERAL 11/05/2024 REASON FOR EXAM: CHEST PAIN TECHNIQUE: Frontal and lateral views of the chest. COMPARISON: None FINDINGS: Hardware: None Heart: The heart size is normal. Mediastinum: The mediastinal contour is unremarkable. Lungs: The lungs are clear. Bones: The bones are unremarkable. RAD/Chest PA and Lateral IMPRESSION: No acute cardiopulmonary abnormality. Reading Location: [id number]
[2024-11-05 16:56] LABS: Anion Gap 12 (5-15); BUN 16 mg/dL (4-19); BUN/Creat Ratio 23.7 RATIO (10-20); Calcium,Total 9.7 mg/dL (7.6-11.0); Carbon Dioxide 23.7 mmol/L (21.0-32.0); Chloride 103 mmol/L (98-108); Creatinine, Serum 0.69 mg/dL (0.70-1.20); EST Glomerular Filtration Rate 105 (>60); Estimated Creatinine Clearance 103.41 ml/min (50-250); Glucose 109 mg/dL (70-99); Magnesium 2.3 mg/dL (1.5-2.2); Potassium 3.9 mmol/L (3.3-5.1); Sodium Level 139 mmol/L (133-145); Thyroid Stim Hormone (TSH) 0.524 uIU/mL (0.300-4.200); Troponin T High Sensitivity < 6 ng/L (<=14)
--- NOTE | 2024-11-05 17:28 | CM.ED ---
Social Work SW met with patient due to not having a PCP listed on face sheet. Patient stated she currently was in between PCPs, that she was no longer going to her last PCP as she felt he was prescribing her medications that were making her feel worse. Patient stated she was trying to get into [facility]. Patient stated she had called and left a message but has not been able to confirm he will be able to take her as a patient. SW left [facility] provider list if patient was unable to secure a PCP. Patient was appreciative of same. Aida Joel, DEL[employer], PRODUCTION PLANNING SUPERVISOR
[2024-11-05 18:24] VITALS: BP 141/91; PULSE 85; RESP 15; O2SAT 100
[2024-11-05 18:55] LABS: Troponin T High Sens 2 HR < 6 ng/L (<=14)
[2024-11-05 19:36] VITALS: BP 143/90; PULSE 85; RESP 18; TEMP 36.6; O2SAT 100
== END 2024-11-05 19:42 | disposition home or self-care (01) ==
PROVIDERS: Emergency Provider Surgery; Referring Provider Surgery; Visit Provider Surgery
DX: R07.9 Chest pain, unspecified (principal); I10 Essential (primary) hypertension; F41.9 Anxiety disorder, unspecified
CPT/HCPCS: 71046; 80048; 83735; 84443; 84484; 85025; 85379; 93005; 99284; A4216

== ENCOUNTER → 2024-11-26 | Outpatient (CLI) | payer SELFPAY ==
--- NOTE | 2024-11-26 13:48 | BI_ITS ---
EXAM: DIAG MAMM W/CAD, BILAT 11/26/2024 CLINICAL HISTORY: F, Age 49 y/o , LUMP ON LEFT SIDE. Left breast palpable abnormality. Evaluate. Patient has bilateral breast implants she has had for proximally 30 years. TECHNIQUE: DIAG MAMM W/CAD, BILAT. CC and MLO views of the right and left breasts were performed as well as pushback Philippe CC and pushback Philippe MLO views of the right and left breast. COMPARISON: Prior exam(s) dated 09/27/2022 and 07/26/2019. FINDINGS: TISSUE DENSITY: The breast tissue is extremely dense which lowers the sensitivity of mammography. Bilateral Breast Mammographic Findings: There is a mass in the left breast correlating to the palpable area. This is best appreciated on the susan images. Further workup with ultrasound will be performed for further evaluation. There are additional masses seen in the left breast which will also be further worked up with ultrasound. Benign vascular calcifications and round microcalcifications are seen in the left breasts. The breast implant appears to be intact. Benign-appearing lymph nodes are seen. Benign round calcifications and vascular calcifications are seen in the right breast. Benign-appearing intramammary and axillary lymph nodes are seen. There are no suspicious masses, suspicious clusters of microcalcifications, architectural distortion or secondary signs of malignancy identified in the right breast. BI/DIAG MAMM W/CAD, BILAT IMPRESSION: Dedicated ultrasonography of the left breast will be performed for further eval uation of the palpable abnormality and masses seen. Please see that report. OVERALL FINAL ASSESSMENT BI-RADS 0: INCOMPLETE - NEED ADDITIONAL IMAGING EVALUATION. RECOMMENDATION: Ultrasound Recommended A letter with findings and recommendations will be mailed to the patient. Reading Location: [id number]
--- NOTE | 2024-11-26 13:48 | US_ITS ---
PROCEDURE: BREAST LIMITED UNILATERAL 11/26/2024 REASON FOR EXAM: F, Age 49 y/o , LUMP Left breast palpable abnormality. Inconclusive mammogram shows masses in the breast. Evaluate. Patient has a left breast implant. COMPARISON: Mammogram dated 11/26/2024 and 09/27/2022. TECHNIQUE: BREAST LIMITED UNILATERAL FINDINGS: Benign-appearing fibrocystic changes are noted throughout the breast. Multiple benign-appearing cystic masses are seen. These are located at the following locations: Marked 12 o'clock, 3 cm from the nipple position measuring 5 x 5 x 4 mm and 2 o'clock, 7 cm from the nipple position measuring 8 x 6 x 3 mm. Benign-appearing complex cystic and solid masses are seen at the following locations: 12 o'clock, 3 cm from the nipple position measuring 9 x 8 x 4 mm and 12 o'clock, 3 cm from nipple position measuring 9 x 9 x 4 mm. There is a solid hypoechoic heterogeneous mass which has irregular margins. This mass is located at 1 o'clock, 6 cm from the nipple position and measures 11 x 10 x 6 mm. It may represent a fibroadenoma however malignancy is another consideration. Biopsy is warranted. There is a solid hypoechoic mass seen at the 2 o'clock, 8 cm from nipple position measuring 12 x 7 x 3 mm. This mass is wider than it is tall and does not produce any posterior shadowing. It appears to represent a fibrocystic mass or fibroadenoma. Short-term six-month follow-up ultrasound is recommended to document stability. There are 2 benign-appearing intramammary lymph nodes seen at 3 o'clock, 11 cm from nipple position measuring 7 x 5 x 3 mm and 3 o'clock, 9 cm from nipple position measuring 6 x 4 x 3 mm. There are benign-appearing axillary lymph nodes seen in the axillary region. These have thin cortexes and do not appear worrisome for malignancy. These benign-appearing axillary lymph nodes measure: 3.2 x 2.2 x 1.5 cm 2.3 x 1.8 x 1.2 cm and 3.7 x 1.6 x 1.1 cm. US/Breast Limited Unilateral IMPRESSION: The solid mass in the left breast at the 1 o'clock position warrants biopsy in order to completely exclude a malignancy. Short-term six-month follow-up ultrasound is recommended to document stability of the remaining masses. BI-RADS 4: SUSPICIOUS ABNORMALITY. RECOMMENDATION: Biopsy Recommended Reading Location: [id number]
== END | disposition home or self-care (01) ==
PROVIDERS: PCP Family Medicine; Referring Provider Family Medicine; Visit Provider Family Medicine
DX: N64.4 Mastodynia (principal); N63.20 Unspecified lump in the left breast, unspecified quadrant; Z98.82 Breast implant status
CPT/HCPCS: 76642; 77062; 77066; G0279

== ENCOUNTER → 2024-11-27 | Outpatient (CLI) | payer SELFPAY ==
--- OUTSIDE RECORDS SUMMARY | 2024-11-27 07:02 | XMS RPT_ITS | CCD ---
Author Organization [facility] CliniSyfl Care Team Providers Care Product Development Assistant Name Role Phone PATRICIA Vasquez, Brook Tristan Unavailable Unavailabl e Nakia PA, PA-C Natividad Primary Care Provider Dr. Pedro Eckert Attending Provider [phone] Dr. Kevin Tony Referring Provider Nakia COMBS-CNatividad Primary Care Provider Nakia PA-CSheelaly D Unavailable Nakia COMBS, PA-C Natividad Primary Care Provider Dr. Pedro Eckert Attending Provider Nakia PA-CNatividad Primary Care Provider Nakia COMBS-CNatividad D Unavailable [phone] Dr. Priscila Umaña Referring Provider Unavailable Nakia COMBS, PA-C Natividad Primary Care Provider Dr. Pedro Eckert Attending Provider Dr. Priscila Umaña Referring Provider Unavailable [place] PA, PA-C Natividad Primary Care Provider Nakia PA, PA-C Natividad Referring Provider RAYRAY Tran Attending Provider [phone] Nakia PA-CNatividad Primary Care Provider NATIVIDAD YEE D Primary Care Unavailable NATIVIDAD YEE Attending Unavailable NATIVIDAD YEE Primary Care Unavailable NATIVIDDA YEE Admitting Unavailable Nakia PA-C, Natividad Primary Care Provider Jeff ESPINOSA-CElinor Attending Provider Unava ilable Jeff PLATFORM MATERIAL HANDLER MANAGER-C, Elinor Lyle Referring Provider Unava ilable Dr. Ramesh Coffey DO Emergency Provider Jeff ESPINOSA-C, Elinor Lyle Primary Care Provider Un available Jose Alexis MD Emergency Provider Erlinda DAVID, Dr. Chandler Attending Provider Vikash DAVID, Dr. Gay Referring Provider Vikash DAVID, Dr. Gay Emergency Provider Care Physician, No Primary Primary Care Provider Unavailable Jeff ESPINOSA, Elinor Lyle Attending Unavailabl e Jeff PLATFORM MATERIAL HANDLER MANAGER, Elinor Lyle Referring Unavailabl e [facility] Primary Care Unavailable Jeff PLATFORM MATERIAL HANDLER MANAGER, Elinor Lyle Primary Care Unavailabl e Ramesh Coffey Attending Unavailable [facility] Referring Unavailable Charlette Tran Attending Unavailable [facility] Care Unavailable Kala Solares Attending Unavailable Miedel, Kala Referring Unavailable Miedel, Kala Primary Care Unavailable Care Physician, No Primary Primary Care Unava ilable Victor Hugo Suh Attending Unavailabl e Victor Hugo Suh Referring Unavailchalo e Jeff ESPINOSA, Elinor Lyle Primary Care Unavailabl e Jose Alexis Attending Unavailable Miedel, Kala Referring Unavailable Miedel, Kala Primary Care Unavailable Miedel Kala Attending Unavailable Miedel, Kala Referring Unavailable Miedel, Kala Primary Care Unavailable Kasandraedel Kala Attending Unavailable Charlette Tran Attending Unavailable [facility] Care Unavailable Allergies Allergy Classification Reported Allergen(s) Allergy Type Date of Onset Reaction(s) Facility (1 source) Azithromycin Drug Allergy 11-17-19 16 hives [facility] Work Phone: (1 source) Ciprofloxacin Drug Allergy 11-17-19 16 hives [facility] Work Phone: (1 source) levoFLOXacin Drug Allergy 11-17-19 16 hives [facility] Work Phone: (1 source) Sulfacetamide Drug Allergy 11-17-19 16 Hives [facility] Work Phone: (20 sources) Azithromycin; Translations: [AZITHROMYCIN] Drug Allergy 03-02-20 07 Upset Stomach [facility] (20 sources) Quinolones (Antibiotic); Translations: [QUINOLONES] Allergy to substance 08-25-19 [facility] Work Phone: (20 sources) Sulfonamides (Antibiotic); Translations: [SULFA (SULFONAMIDE ANTIBIOTICS)] Allergy to substance 03-02-20 07 [facility] (12 sources) 4-Aminobenzoic Acid; Translations: [P-AMINOBENZOIC ACID] Drug Allergy 03-02-20 07 [facility] (12 sources) Ciprofloxacin; Translations: [CIPROFLOXACIN] Drug Allergy 03-02-20 07 [facility] (12 sources) DULoxetine; Translations: [DULOXETINE] Drug Allergy 05-16-20 07 Intolerance [facility] (12 sources) levoFLOXacin; Translations: [LEVOFLOXACIN] Drug Allergy 07-15-19 [facility] (1 source) Azithromycin Drug Allergy 11-01-19 25 [facility] (1 source) Ciprofloxacin Drug Allergy 11-24-19 25 [facility] (1 source) cyclobenzaprine Drug Allergy 11-24-19 [facility] (1 source) gabapentin Drug Allergy 11-24-19 25 [facility] (1 source) Ivermectin Drug Allergy 11-24-19 25 [facility] (1 source) Naltrexone Drug Allergy 11-24-19 [facility] (1 source) traMADol Drug Allergy 11-24-19 25 [facility] (1 source) prabotulinumtoxinA- xvfs Drug allergy (disorder) 11-24-19 25 [facility] Repository Medications Current Medications Medication Drug Class(es) Dates Sig (Normalized) Sig (Original) Acetaminophen (3 sources) acetaminophen (TYLENOL 8 HOUR ORAL) Take by mouth. 0 Active Comment on above: Take by mouth. bacitracin 0.5 unt/mg ophthalmic ointment (3 sources) Start: 11-30-2021 End: 12-05-2021 bacitracin ophthalmic ophthalmic ointment Use 1 application in both eyes three times daily for 5 days. 3.5 g 0 11/30/2021 12/05/2021 Active Comment on above: Use 1 application in the right eye three times daily for 5 days. Use 1 application in both eyes three times daily for 5 days. cephalexin 500 mg oral capsule (17 sources) Cephalosporin Antibacterial Start: 11-30-2021 End: 12-05-2021 take 1 capsule by mouth three times daily cephALEXin (KEFLEX) 500 mg capsule Take 1 capsule by mouth three times daily for 5 days. 15 capsule 0 11/30/2021 12/05/2021 Active Start: 12-04-2019 End: 12-07-2019 take 1 capsule by mouth every twelve hours Cephalexin 500 MG capsule Discontinued 500 mg PO EVERY 12 HOURS 11 06December 04, 2019 12:00am December 06, 2019 12:00am December 07, 2019 12:02am Comment on above: Take 1 capsule by mo [facility] three times daily for 5 days. clonazePAM 0.5 mg oral tablet (20 sources) Benzodiazepine Start: take 1 tablet by mouth every twelve hours Clonazepam 0.5 mg tablet Active 0.5 mg PO Q12H September 10, 2022 12:00am Start: 11-27-2019 End: 09-10-2022 take 1 tablet by mouth at bedtime Clonazepam 0.25 MG tablet,disintegrating Discontinued 0.25 mg PO AT BEDTIME November 27, 2019 12:00am September 10, 2022 9:38am Start: 12-12-2013 End: 02-28-2019 take 1 tablet by mouth at bedtime as needed for anxiety Clonazepam 0.5 MG tablet Discontinued 0.5 mg PO AT BEDTIME NEEDED as needed for Anxiety December 12, 2013 12:00am February 28, 2019 2:35pm Start: 04-18-2007 End: 02-28-2019 take 1 tablet by mouth once daily at bedtime as needed for anxiety Clonazepam 0.5 MG tablet Discontinued 0.5 mg PO AT BEDTIME NEEDED as needed for prn anxiety [facility] 14 December 12, 2013 12:00am February 28, 2019 2:38pm Comment on above: Take one(1) tablet d aily doxycycline monohydrate 100 mg oral capsule (1 source) Tetracycline-class Drug Start: 11-16-19 End: 11-21-19 take 1 capsule by mouth twice daily doxycycline monohydrate (MONODOX) 100 mg capsule Indications: Paronychia of great toe of right foot Take 1 capsule by mouth two times a day for 5 days. 10 capsule 0 11/16/2023 11/21/2023 Active LORazepam 0.5 mg oral tablet (1 source) Benzodiazepine Start: 11-06-19 25 take 1 tablet by mouth twice daily as needed for anxiety Lorazepam (Ativan) 0.5 mg tablet Active 0.5 mg PO TWICE A DAY as needed for anxiety 4 2 November 05, 2024 12:00am Do not take at night with your clonazepam. magnesium citrate (11 sources) Start: 12-03-19 21 Magnesium Citrate 150mg [address] ct[address] (Pure Encapsulations) Take 3 capsules daily. 0 12/02/2020 Active Comment on above: Take 3 capsules aimee y. Magnesium Glycinate 120mg 3 at night Stress, blood sugar, thyroid/hormones/adr enals/sleep/energy/t oxins/muscles/consti pation/asthma (11 sources) Start: 07-25-19 21 Magnesium Glycinate 120mg 3 at night Stress, blood sugar, thyroid/hormones/adr enals/sleep/energy/t oxins/muscles/consti pation/asthma Indications: Other chronic pain , History of thyroid disease , Arthralgia, unspecified joint , Abnormal increased muscle tightness , Mold exposure , Chronic idiopathic constipation , Bloating , Chronic fatigue, unspecified , Diarrhea of presumed infectious origin , Heavy metal exposure Work up to 3 capsules with meals at night - can cause loose stools 0 07/25/2020 Active Comment on above: Work up to 3 capsule s with meals at night - can cause loose stools 24 hr metoprolol succinate 25 mg extended release oral tablet (20 sources) beta-Adrenergic [place] Start: 09-11-19 23 take 1 tablet by mouth twice daily Metoprolol Succinate 25 mg tablet extended release 24 hr Active 25 mg PO TWICE A DAY September 10, 2022 12:00am Start: 02-28-2019 End: 09-10-2022 take 1 tablet by mouth twice daily Metoprolol Tartrate 50 mg tablet Discontinued 50 mg PO TWICE A DAY February 28, 2019 12:00am September 10, 2022 9:37am take 1 tablet by jostin once daily for diarrhea metoprolol succinate ER (TOPROL XL) 25 mg 24 hr tablet Indications: Encounter for gynecological examination with abnormal finding , Diarrhea, unspecified type Take 50 mg by mouth once daily. 0 Active Comment on above: Take 50 mg by mouth once daily. Completed/Discontinued Medications Medication Drug Class(es) Dates Sig (Normalized) Sig (Original) acetaminophen 325 mg / oxyCODONE hydrochloride 5 mg oral tablet (14 sources) Opioid Agonist Start: 12-04-2019 End: 12-11-2019 Oxycodone-Acetamino phen 1 TABLET tablet Discontinued 2 {tbl} PO EVERY 8 HOURS NEEDED as needed for Pain 23 12December 04, 2019 December 10, 2019 12:00am December 11, 2019 12:02am Start: 12-04-2019 End: 12-11-2019 take 2 tablets by mouth every eight hours as needed Oxycodone-Acetaminophen Discontinued 2 TABLET PO EVERY 8 HOURS NEEDED 23 12December 04, 2019 December 11, 2019 12:02am Amitriptyline (1 source) Tricyclic Antidepressant Start: 11-05-2024 End: 11-05-2024 Amitriptyline (Bulk) powder Discontinued [facility] November 05, 2024 12:00am November 05, 2024 5:06pm ascorbic acid 500 mg oral capsule (14 sources) Vitamin C Start: 02-28-2019 End: 09-10-2022 take 1 capsule by mouth once daily Ascorbic Acid (Vitamin C) 500 mg capsule Discontinued 500 mg PO DAILY February 28, 2019 12:00am September 10, 2022 9:39am aspirin 81 mg delayed release oral tablet (11 sources) Platelet Aggregation Inhibitor, Nonsteroidal Anti-inflammatory Drug Start: 09-10-2022 End: 10-26-2024 take 2 tablets by mouth once daily Aspirin 81 mg tablet,delayed release (DR/EC) Discontinued 162 mg PO DAILY September 10, 2022 12:00am October 26, 2024 5:36am Start: 09-10-2022 take 162 mg by mouth once aimee y Aspirin Active 162 MG PO DAILY September 10, 2022 12:00am take 1 tablet by mouth once aimee y aspirin 325 mg tablet Take 325 mg by mouth once daily. 0 Active Comment on above: Take 325 mg by mouth once daily. Baclofen (1 source) gamma-Aminobutyric Acid-ergic Agonist Start: 11-06-19 End: 11-06-19 Baclofen (Bulk) 100 % powder Discontinued [facility] November 05, 2024 12:00am November 05, 2024 5:06pm biotin 1 mg oral capsule (14 sources) Start: 02-29-20 End: 05-09-20 take 1 capsule by mouth once daily Biotin 1 mg capsule Discontinued 1 mg PO DAILY February 28, 2019 12:00am May 09, 2020 10:20am cholecalciferol 0.05 mg oral capsule (14 sources) Vitamin D Start: 02-29-20 End: 09-11-19 take 1 capsule by mouth once daily Cholecalciferol (Vitamin D3) 2,000 unit capsule Discontinued 2000 U PO DAILY February 28, 2019 12:00am September 10, 2022 9:39am cyclobenzaprine hydrochloride 10 mg oral tablet (2 sources) Muscle Relaxant Start: 10-27-19 End: 11-06-19 take 1 tablet by mouth three times daily Cyclobenzaprine 10 mg tablet Discontinued 10 mg PO THREE TIMES A DAY October 26, 2024 12:00am November 05, 2024 5:06pm fluconazole 150 mg oral tablet (14 sources) Azole Antifungal Start: 12-04-19 End: 12-06-19 take 1 tablet by mouth once daily Fluconazole 150 MG tablet Discontinued 150 mg PO DAILY 2 December 04, 2019 12:00am December 05, 2019 12:00am December 06, 2019 12:02am gabapentin (3 sources) Anti-epileptic Agent Start: 11-06-19 End: 11-06-19 Gabapentin (Bulk) 100 % powder Discontinued [facility] November 05, 2024 12:00am November 05, 2024 5:07pm Start: 10-26-2024 End: 11-05-2024 take 100-200 mg by mouth once daily as needed for pain Gabapentin 100 mg capsule Discontinued 100 - 200 mg PO DAILY as needed for pain October 26, 2024 12:00am November 05, 2024 5:07pm GI-Revive 225 gram Powder ([employer]) (11 sources) Start: 07-25-2020 End: 11-16-2023 GI-Revive 225 gram Powder ([employer]) Indications: Other chronic pain , History of thyroid disease , Arthralgia, unspecified joint , Abnormal increased muscle tightness , Mold exposure , Chronic idiopathic constipation , Bloating , Chronic fatigue, unspecified , Diarrhea of presumed infectious origin , Heavy metal exposure Take 1 tablespoons twice daily (1 tablespoon = 1.5 grams L-glut) 0 07/25/2020 11/16/2023 Discontinued Start: 07-25-2020 GI-Revive 225 gram Powder ([employer]) Indications: Other chronic pain , History of thyroid disease , Arthralgia, unspecified joint , Abnormal increased muscle tightness , Mold exposure , Chronic idiopathic constipation , Bloating , Chronic fatigue, unspecified , Diarrhea of presumed infectious origin , Heavy metal exposure Take 1 tablespoons twice daily (1 tablespoon = 1.5 grams L-glut) 0 07/25/2020 Active Comment on above: Take 1 tablespoons t wice daily (1 tablespoon = 1.5 grams L-glut) Pfbfkaqj-Uix-Kpfnnuhd t-Vit D3 (11 sources) Start: 11-27-2019 End: 05-09-2020 Tbslexss-Sqe-Xxuipfkfp-Vi t D3 Discontinued 1 EACH PO DAILY November 27, 2019 1:16pm May 09, 2020 10:22am Start: 11-27-2019 End: 05-09-2020 Blhefaph-Igw-Aoyvjdwru-Vit D 3 Discontinued 1 EACH PO DAILY November 27, 2019 12:00am May 09, 2020 10:22am Start: 11-27-2019 End: 05-09-2020 Sfzzsksv-Ddx-Litdrwzes-Vit D 3 Discontinued 1 EACH PO DAILY November 26, 2019 11:00pm May 09, 2020 9:22am Xmnoesst-Xex-Tgmlhygkz-Vit D 3 1 EACH tablet (3 sources) Start: 11-27-2019 End: 05-09-2020 Oettalrg-Eez-Pqbimibjw-Vit D 3 1 EACH tablet Discontinued 1 NMA PO DAILY November 27, 2019 12:00am May 09, 2020 10:22am Glycerin (1 source) Non-Standard ized Chemical Allergen Start: 11-05-2024 End: 11-05-2024 Glycerin 99.5 % solution Discontinued TOPICAL November 05, 2024 12:00am November 05, 2024 5:07pm hydroquinone (11 sources) Melanin Synthesis Inhibitor End: 11-16-2023 HYDROQUINONE TOPICAL Apply t o affected area. 0 11/16/2023 Discontinued HYDROQUINONE TOP ICAL Apply to affected area. 0 Active Comment on above: Apply to affected ar ea. Lactobacillus Combination No.8 (Adult Probiotic) 3 billion cell capsule (14 sources) Start: 9 End: 0 take 3 capsules by mouth once daily Lactobacillus Combination No.8 (Adult Probiotic) 3 billion cell capsule Discontinued 3000 MMU CELLS PO DAILY February 28, 2019 2:36pm May 09, 2020 10:24am Start: 02-28-2019 End: 05-09-2020 take 3 capsules by mouth once daily Lactobacillus Combination No.8 (Adult Probiotic) 3 billion cell capsule Discontinued 3000 NMA PO DAILY February 28, 2019 12:00am May 09, 2020 10:24am Start: 02-28-2019 End: 05-09-2020 take 3 capsules by mouth once daily Lactobacillus Combination No.8 (Adult Probiotic) 3 billion cell capsule Discontinued 3000 MMU CELLS PO DAILY February 28, 2019 12:00am May 09, 2020 10:24am Start: 02-28-2019 End: 05-09-2020 take 3 capsules by mouth once daily Lactobacillus Combination No.8 (Adult Probiotic) 3 billion cell capsule Discontinued 3000 MMU CELLS PO DAILY February 27, 2019 11:00pm May 09, 2020 9:24am Lidocaine (1 source) Antiarrhythmic, Amide Local Anesthetic Start: 11-05-2024 End: 11-05-2024 Lidocaine (Bulk) powder Discontinued [facility] November 05, 2024 12:00am November 05, 2024 5:07pm magnesium oxide 500 mg oral capsule (14 sources) Start: 11-27-2019 End: 05-09-2020 take 1 capsule by mouth once daily Magnesium Oxide 500 MG capsule Discontinued 500 mg PO DAILY November 27, 2019 12:00am May 09, 2020 10:23am nitrofurantoin, macrocrystals 25 mg / nitrofurantoin, monohydrate 75 mg oral capsule (8 sources) Nitrofuran Antibacterial Start: 09-10-2022 End: 11-30-2023 take 1 capsule by mouth twice daily at mealtime Nitrofurantoin Monohyd/M-Cryst (Macrobid) 100 mg capsule Discontinued 100 mg PO TWICE A DAY September 10, 2022 12:00am November 30, 2023 8:43am must administer with a meal/food [place]-3 Fatty Acids (11 sources) Start: 02-28-2019 End: 05-09-2020 take 1000 mg by mouth once daily [place]-3 Fatty Acids Discontinued 1000 MG PO DAILY February 28, 2019 2:36pm May 09, 2020 10:23am Start: 02-28-2019 End: 05-09-2020 take 1000 mg by mouth once daily [place]-3 Fatty Acids Discontinued 1000 MG PO DAILY February 28, 2019 12:00am May 09, 2020 10:23am Start: 02-28-2019 End: 05-09-2020 take 1000 mg by mouth once daily [place]-3 Fatty Acids Discontinued 1000 MG PO DAILY February 27, 2019 11:00pm May 09, 2020 9:23am [place]-3 Fatty Acids 1,000 mg capsule (3 sources) Start: 02-28-2019 End: 05-09-2020 take 1 capsule by mouth once daily [place]-3 Fatty Acids 1,000 mg capsule Discontinued 1000 mg PO DAILY February 28, 2019 12:00am May 09, 2020 10:23am ondansetron 4 mg oral tablet (1 source) Serotonin-3 Receptor Antagonist Start: 11-05-2024 End: 11-05-2024 take 1 tablet by mouth three times daily as needed for nausea Ondansetron Hcl 4 mg tablet Discontinued 4 mg PO 3 TIMES DAILY NEEDED as needed for nausea November 05, 2024 12:00am November 05, 2024 5:07pm phenazopyridine hydrochloride 200 mg oral tablet (11 sources) Start: 08-10-2019 End: 11-16-2023 take 1 tablet by mouth every eight hours as needed phenazopyridine (PYRIDIUM) 200 mg tablet Take 1 tablet by mouth three times daily as needed. 20 tablet 0 08/10/2019 11/16/2023 Discontinued Comment on above: Take 1 tablet by jostin three times daily as needed. VIT-FE FUMARATE-FA (1 source) Start: 11-17-2015 take 1 tablet by mouth once daily VITAMIN 27-0.8 MG TABS 1 tablet by mouth daily VIT-FE FUMARATE-FA [id number] Natividad Yee PA-C QUEtiapine 25 mg oral tablet (20 sources) Atypical Antipsychotic Start: 09-10-2022 End: 10-26-2024 Quetiapine 25 mg tablet Discontinued 12.5 mg PO AT BEDTIME September 10, 2022 12:00am October 26, 2024 5:36am Start: 09-10-2022 take 12.5 mg by mout h at bedtime Quetiapine Active 12.5 MG PO AT BEDTIME September 10, 2022 12:00am Start: 02-28-2019 End: 09-10-2022 take 1 tablet by mouth at bedtime Quetiapine (Seroquel) 50 mg tablet Discontinued 50 mg PO AT BEDTIME February 28, 2019 12:00am September 10, 2022 9:36am Start: 11-17-2015 SEROQUEL 50 MG TABS 1/2 to 1 tablet before bed QUETIAPINE FUMARATE [id number] Natividad Yee PA-C QUEtiapine 50 mg tablet Take 12 mg by mouth daily at bedtime. 0 Active QUEtiapine 50 mg tablet Take 20 mg by mouth daily at bedtime. 0 Active Comment on above: Take 20 mg by mouth daily at bedtime. Take 12 mg by mouth daily at bedtime. traMADol hydrochloride 50 mg oral tablet (20 sources) Opioid Agonist Start: 7 End: take 1 tablet by mouth once daily Tramadol 50 mg tablet Discontinued 50 mg PO DAILY February 28, 2019 12:00am November 05, 2024 5:07pm Comment on above: as necessary.Take on e(1) tablet as needed Tretinoin (11 sources) Retinoid End: 4 TRETINOIN (RETIN-A TOPICAL) Apply to affected area. 0 11/16/2023 Discontinued TRETINOIN (RETIN -A TOPICAL) Apply to affected area. 0 Active Comment on above: Apply to affected ar ea. Turmeric Root Extract (14 sources) Start: 11-27-2019 End: 05-09-2020 take 500 mg by mouth once daily Turmeric Root Extract Discontinued 500 MG PO DAILY November 27, 2019 1:16pm May 09, 2020 10:23am Start: 11-27-2019 End: 05-09-2020 take 1 capsule by mouth once daily Turmeric Root Extract 500 MG capsule Discontinued 500 mg PO DAILY November 27, 2019 12:00am May 09, 2020 10:23am Start: 11-27-2019 End: 05-09-2020 take 500 mg by mouth once daily Turmeric Root Extract Discontinued 500 MG PO DAILY November 27, 2019 12:00am May 09, 2020 10:23am Start: 11-27-2019 End: 05-09-2020 take 500 mg by mouth once daily Turmeric Root Extract Discontinued 500 MG PO DAILY November 26, 2019 11:00pm May 09, 2020 9:23am vitamin a 2.4 mg oral capsule (14 sources) Vitamin A Start: 11-27-2019 End: 05-09-2020 Vitamin A 8,000 UNIT capsule Discontinued 8000 U PO DAILY November 27, 2019 12:00am May 09, 2020 10:23am Vitamin B Comp And C No.3 (B Complex Plus Vitamin C) 01-39-89-5-300 mg capsule (14 sources) Start: 02-28-2019 End: 05-09-2020 Vitamin B Comp And C No.3 (B Complex Plus Vitamin C) 63-67-56-5-300 mg capsule Discontinued 1 CAP PO DAILY February 28, 2019 2:37pm May 09, 2020 10:23am Start: 02-28-2019 End: 05-09-2020 Vitamin B Comp And C No.3 (B Complex Plus Vitamin C) 83-42-65-5-300 mg capsule Discontinued 1 NMA PO DAILY February 28, 2019 12:00am May 09, 2020 10:23am Start: 02-28-2019 End: 05-09-2020 Vitamin B Comp And C No.3 (B Complex Plus Vitamin C) 29-74-44-5-300 mg capsule Discontinued 1 CAP PO DAILY February 28, 2019 12:00am May 09, 2020 10:23am Start: 02-28-2019 End: 05-09-2020 Vitamin B Comp And C No.3 (B Complex Plus Vitamin C) 39-00-75-5-300 mg capsule Discontinued 1 CAP PO DAILY February 27, 2019 11:00pm May 09, 2020 9:23am Problems Active Problems Problem Classification Problem Date Documented Date Episodic/Chronic Allergic reactions (1 source) Allergy, unspecified, initial encounter; Translations: [Allergy, unspecified, initial encounter] Onset: 11-01-2024 Episodic Anxiety disorders (4 sources) Anxiety; Translations: [Anxiety disorder, unspecified] Onset: 11-17-2015 11-17-2015 Chronic Cardiac dysrhythmias (12 sources) Tachycardia; Translations: [Intermittent palpitations] Onset: 02-10-2017 02-10-2017 Episodic E Codes: Adverse effects of medical drugs (2 sources) Adverse reaction to drug; Translations: [Adverse effect of unspecified drugs, medicaments and biological substances, initial encounter] 10-26-2024 Episodic Essential hypertension (15 sources) Hypertensive disorder; Translations: [Essential (primary) hypertension] Onset: 11-23-2024 12-04-2019 Chronic Genitourinary symptoms and ill-defined conditions (14 sources) Urge incontinence of urine; Translations: [Urge incontinence] 12-04-2019 Chronic Immunizations and screening for infectious disease (1 source) Contact with or exposure to other viral diseases; Translations: [Close exposure to COVID-19 virus] Episodic Inflammation; infection of eye (except that caused by tuberculosis or sexually transmitteddisease) (1 source) Hordeolum externum of upper eyelid of right eye; Translations: [Hordeolum externum right upper eyelid] Episodic Inflammatory diseases of female pelvic organs (1 source) Acute vaginitis; Translations: [Vaginitis and vulvovaginitis, unspecified] 10-06-2023 Episodic Malaise and fatigue (1 source) Other fatigue; Translations: [Other fatigue] Onset: 09-11-2024 Episodic Nonmalignant breast conditions (1 source) Mastodynia; Translations: [Mastodynia] Onset: 11-23-2024 Episodic Nonspecific chest pain (2 sources) Chest pain; Translations: [Chest pain, unspecified] Onset: 11-12-2024 11-05-2024 Episodic Nutritional deficiencies (11 sources) Vitamin D deficiency; Translations: [Vitamin D deficiency, unspecified] Onset: 04-20-2007 04-20-2007 Chronic Other connective tissue disease (13 sources) Pain in lower limb; Translations: [Pain in leg, unspecified] 11-15-2021 Episodic Other connective tissue disease (1 source) Pain in left lower limb; Translations: [Pain in left leg] Episodic Other female genital disorders (14 sources) Dyspareunia; Translations: [Dyspareunia] 12-04-2019 Chronic Other female genital disorders (1 source) Vulvar cyst; Translations: [Other specified noninflammatory disorders of vulva and perineum] 10-06-2023 Episodic Other infections; including parasitic (1 source) Pediculosis capitis; Translations: [Pediculosis due to Pediculus humanus capitis] 11-16-2023 Episodic Other lower respiratory disease (9 sources) Dyspnea; Translations: [Shortness of breath] Onset: 02-10-2017 02-10-2017 Episodic Other nutritional; endocrine; and metabolic disorders (1 source) Hypercalcemia; Translations: [Hypercalcemia] Onset: 03-15-2024 Chronic Residual codes; unclassified (15 sources) Insomnia; Translations: [Insomnia, unspecified] Onset: 11-17-2015 11-17-2015 Episodic Skin and subcutaneous tissue infections (1 source) Paronychia of toe of right foot; Translations: [Cellulitis of right toe] 11-16-2023 Episodic Spondylosis; intervertebral disc disorders; other back problems (20 sources) Backache; Translations: [Dorsalgia, unspecified] 12-04-2019 Episodic Unclassified (1 source) Procedure carried out on subject; Translations: [Encounter for screening for lipoid disorders] Onset: 11-17-2015 11-17-2015 Urinary tract infections (14 sources) Urinary tract infectious disease; Translations: [Urinary tract infection, site not specified] 12-04-2019 Episodic Past or Other Problems Problem Classification Problem Date Documented Da te Episodic/Chronic Other connective tissue disease (11 sources) Muscle pain; Translations: [Myalgia and myositis, unspecified] Onset: 05-16-2007 05-16-2007 Episodic Other nutritional; endocrine; and metabolic disorders (11 sources) H/O: thyroid disorder; Translations: [Personal history of other endocrine, nutritional and metabolic disease] Onset: 11-21-2013 11-21-2013 Episodic Other screening for suspected conditions (not mental disorders or infectious disease) (16 sources) Encounter for screening for diabetes mellitus; Translations: [Thyroid function tests abnormal] Onset: 11-17-2015 11-17-2015 Episodic Results Test Name Value Interpretation Reference Range Facility 12 Lead EKGon 11-05-2024 12 Lead EKG [facility] Cardiovascular Services [address] [place] [address] 12 Lead EKG 11/05/24 1555 MR#: [id number] Acct: [id number] Name: VERONICA UMAÑA Rep #: [id number] : 1975 49 From: Brandy Meza MD Attending Dr: Status: DEP ER Ordering Dr: Victor Hugo Suh DO Date: 5 Location: ED Sex: F C Admitted: Test Reason : CP Blood Pressure : */* mmHG Vent. Rate : 78 BPM Atrial Rate : 78 BPM P-R Int : 106 ms QRS Dur : 98 ms QT Int : 354 ms P-R-T Axes : 6 55 44 degrees QTcB Int : 403 ms Sinus rhythm with short NM Otherwise normal ECG Confirmed by Brandy Meza ([id number]), dictionary editor VERONICA ESCOBAR ([id number]) on 11/06/2024 9:56:44 AM Referred By: Victor Hugo Suh Confirmed By: Brandy Meza 11/06/24 0956 Date Brandy Meza MD CC: Dr. Victor Hugo Suh, ; No Primary Care Physician Signed Normal [facility] Absolute lymphocyte countOrd ered By: Victor Hugo Suh on 11-05-2024 Lymphocytes Auto (Unsp spec) [#/Vol] 1.60 10*3/uL 0.83-4.51 [facility] Absolute neutrophil countOrd ered By: Victor Hugo Suh on 11-05-2024 Neutrophils (Bld) [#/Vol] 4.3 10*3/uL 2.0-7.7 [facility] Anion gap in Serum or Plasma Ordered By: Victor Hugo Suh on 11-05-2024 Anion gap [Moles/Vol] 12 mmol/L 5-15 [facility] Automated lymphocyte count a s percentage of total leukocytesOrdered By: Victor Hugo Suh on 11-05-2024 Lymphocytes/100 WBC Auto (Unsp spec) 24.7 % -41 [facility] BUN/creatinine ratioOrdered By: Victor Hugo Suh on 11-05-2024 Urea nitrogen/Creatinine [Mass ratio] 23.7 mg/mg High 10- [facility] Basic Metabolic Profile (BMP )on 11-05-2024 BUN/CRE 23.7 RATIO High 10-20 [facility] Comment on above: Performed By: #### L 501.5200, L501.4021, L500.2500, L100.0100, L501.9520, L300.8000 ####[facility] [address] [place], [address] Calcium [Mass/Vol] 9.7 mg/dL Normal 7.6-11.0 [facility] Comment on above: Performed By: #### L 501.5200, L501.4021, L500.2500, L100.0100, L501.9520, L300.8000 ####[facility] [address] [place], [address] Chloride [Moles/Vol] 103 mmol/L Normal 98-[address] [facility] Comment on above: Performed By: #### L 501.5200, L501.4021, L500.2500, L100.0100, L501.9520, L300.8000 ####[facility] [address] [place], [address] CO2 [Moles/Vol] 23.7 mmol/L Normal 21.0-32.0 [facility] Comment on above: Performed By: #### L 501.5200, L501.4021, L500.2500, L100.0100, L501.9520, L300.8000 ####[facility] [address] [place], [address] Creatinine [Mass/Vol] 0.69 mg/dL Low 0.70-1.20 [facility] Comment on above: Performed By: #### L 501.5200, L501.4021, L500.2500, L100.0100, L501.9520, L300.8000 ####[facility] [address] [place], [address] ECRCL 103.41 ml/min Normal 50-250 [facility] Comment on above: Performed By: #### L 501.5200, L501.4021, L500.2500, L100.0100, L501.9520, L300.8000 ####[facility] [address] [place], [address] GAP 12 Normal 5-15 [facility] Comment on above: Performed By: #### L 501.5200, L501.4021, L500.2500, L100.0100, L501.9520, L300.8000 ####[facility] [address] [place], [address] GFR/1.73 sq M.predicted among non-blacks MDRD (S/P/Bld) [Vol rate/Area] 105 mL/min/{1.73_m2} Normal >60 [facility] Comment on above: Result Comment: mL/m in/1.73m2 CKD-EPI Creatinine Equation (2020) Performed By: #### L 501.5200, L501.4021, L500.2500, L100.0100, L501.9520, L300.8000 ####[facility] [address] [place], [address] Glucose [Mass/Vol] 109 mg/dL High 70-99 [facility] Comment on above: Performed By: #### L 501.5200, L501.4021, L500.2500, L100.0100, L501.9520, L300.8000 ####[facility] [address] [place], [address] Potassium [Moles/Vol] 3.9 mmol/L Normal 3.3-5.1 [facility] Comment on above: Performed By: #### L 501.5200, L501.4021, L500.2500, L100.0100, L501.9520, L300.8000 ####[facility] [address] [place], [address] Sodium [Moles/Vol] 139 mmol/L Normal 133-145 [facility] Comment on above: Performed By: #### L 501.5200, L501.4021, L500.2500, L100.0100, L501.9520, L300.8000 ####[facility] [address] [place], [address] Urea nitrogen [Mass/Vol] 16 mg/dL Normal 4-19 [facility] Comment on above: Performed By: #### L 501.5200, L501.4021, L500.2500, L100.0100, L501.9520, L300.8000 ####[facility] [address] [place], [address] Basophil percentageOrdered B y: Victor Hugo Suh on 11-05-2024 Basophils/100 WBC (Bld) 0.8 % 0-1 [facility] CBC W/Diff, Automatedon Absolute Lymph 1.60 X10 3/uL Normal 0.83-4.51 [facility] Comment on above: Performed By: #### L 501.5200, L501.4021, L500.2500, L100.0100, L501.9520, L300.8000 ####[facility] [address] [place], [address] Absolute Neut 4.3 X10 3/uL Normal 2.0-7.7 [facility] Comment on above: Performed By: #### L 501.5200, L501.4021, L500.2500, L100.0100, L501.9520, L300.8000 ####[facility] [address] [place], [address] Basophils/100 WBC (Bld) 0.8 % Normal 0-1 [facility] Comment on above: Performed By: #### L 501.5200, L501.4021, L500.2500, L100.0100, L501.9520, L300.8000 ####[facility] [address] [place], [address] Eosinophils/100 WBC (Bld) 0.5 % Normal 0-5 [facility] Comment on above: Performed By: #### L 501.5200, L501.4021, L500.2500, L100.0100, L501.9520, L300.8000 ####[facility] [address] [place], [address] Erythrocyte distribution width (RBC) [Ratio] 12.5 % Normal 11.6-14.6 [facility] Comment on above: Performed By: #### L 501.5200, L501.4021, L500.2500, L100.0100, L501.9520, L300.8000 ####[facility] [address] [place], [address] Hematocrit (Bld) [Volume fraction] 39.4 % Normal 37-47 [facility] Comment on above: Performed By: #### L 501.5200, L501.4021, L500.2500, L100.0100, L501.9520, L300.8000 ####[facility] [address] [place], [address] Hemoglobin (Bld) [Mass/Vol] 13.4 g/dL Normal 12.0-15.0 [facility] Comment on above: Performed By: #### L 501.5200, L501.4021, L500.2500, L100.0100, L501.9520, L300.8000 ####[facility] [address] [place], [address] IG% 0.500 Normal 0.0-0.9 [facility] Comment on above: Result Comment: IG% - Immature Granulocytes (promyelocytes, myelocytes and metamyelocytes) > 1% indicates that a LEFT SHIFT is Present. Performed By: #### L 501.5200, L501.4021, L500.2500, L100.0100, L501.9520, L300.8000 ####[facility] [address] [place], [address] Lymphocytes/100 WBC (Bld) 24.7 % Normal 19-41 [facility] Comment on above: Performed By: #### L 501.5200, L501.4021, L500.2500, L100.0100, L501.9520, L300.8000 ####[facility] [address] [place], [address] MCH (RBC) [Entitic mass] 31.9 pg Normal 27.0-32.0 [facility] Comment on above: Performed By: #### L 501.5200, L501.4021, L500.2500, L100.0100, L501.9520, L300.8000 ####[facility] [address] [place], [address] MCHC (RBC) [Mass/Vol] 34.0 g/dL Normal 32-36 [facility] Comment on above: Performed By: #### L 501.5200, L501.4021, L500.2500, L100.0100, L501.9520, L300.8000 ####[facility] [address] [place], [address] MCV (RBC) [Entitic vol] 93.8 fL Normal 81-99 [facility] Comment on above: Performed By: #### L 501.5200, L501.4021, L500.2500, L100.0100, L501.9520, L300.8000 ####[facility] [address] [place], [address] Monocytes/100 WBC (Bld) 7.7 % Normal 0-10 [facility] Comment on above: Performed By: #### L 501.5200, L501.4021, L500.2500, L100.0100, L501.9520, L300.8000 ####[facility] [address] [place], [address] Neutrophils/100 WBC (Bld) 65.8 % Normal 47-70 [facility] Comment on above: Performed By: #### L 501.5200, L501.4021, L500.2500, L100.0100, L501.9520, L300.8000 ####[facility] [address] [place], [address] Nucleated RBC (Bld) [#/Vol] 0 10*3/uL Normal 0-5 [facility] Comment on above: Performed By: #### L 501.5200, L501.4021, L500.2500, L100.0100, L501.9520, L300.8000 ####[facility] [address] [place], [address] Platelet mean volume (Bld) [Entitic vol] 9.9 fL Normal 6.2-12.0 [facility] Comment on above: Performed By: #### L 501.5200, L501.4021, L500.2500, L100.0100, L501.9520, L300.8000 ####[facility] [address] [place], [address] Platelets (Bld) [#/Vol] 290 10*3/uL Normal 150-450 [facility] Comment on above: Performed By: #### L 501.5200, L501.4021, L500.2500, L100.0100, L501.9520, L300.8000 ####[facility] [address] [place], [address] RBC (Bld) [#/Vol] 4.20 10*6/uL Normal 4.2-5.4 [facility] Comment on above: Performed By: #### L 501.5200, L501.4021, L500.2500, L100.0100, L501.9520, L300.8000 ####[facility] [address] [place], [address] RDW SD 42.7 fl Normal 35.1-43.9 [facility] Comment on above: Performed By: #### L 501.5200, L501.4021, L500.2500, L100.0100, L501.9520, L300.8000 ####[facility] [address] [place], [address] WBC (Bld) [#/Vol] 6.5 10*3/uL Normal 4.4-11.0 [facility] Comment on above: Performed By: #### L 501.5200, L501.4021, L500.2500, L100.0100, L501.9520, L300.8000 ####[facility] [address] [place], [address] Carbon dioxide, total [Moles /volume] in Central venous bloodOrdered By: Victor Hugo Suh on 11-05-2024 CO2 [Moles/Vol] 23.7 mmol/L 21.0-32.0 [facility] Chest PA and Lateralon 11-05 Chest PA and Lateral [facility] Imaging Services [address] [place] [address] Chest PA and Lateral MR#: [id number] Acct: [id number] Name: VERONICA UMAÑA Rep #: [id number] : 1975 F 49 From: Bhanu Becker MD PCP: Care Physician,No Primary Status: REG ER Study: Chest PA and Lateral Date of Exam: 11/05/24 Exam# [id number] Ordering Dr: Victor Hugo Suh DO PROCEDURE: CHEST PA AND LATERAL 11/05/2024 REASON FOR EXAM: CHEST PAIN TECHNIQUE: Frontal and lateral views of the chest. COMPARISON: None FINDINGS: Hardware: None Heart: The heart size is normal. Mediastinum: The mediastinal contour is unremarkable. Lungs: The lungs are clear. Bones: The bones are unremarkable. RAD/Chest PA and Lateral IMPRESSION: No acute cardiopulmonary abnormality. Reading Location: [facility] CC: Dr. Victor Hugo Suh, DO; No Primary Care Physician Mechanical Specialist: Signed Normal [facility] Chloride assayOrdered By: Luis Suh on 11-05-2024 Chloride [Moles/Vol] 103 mmol/L 98-[address] [facility] D-Dimer Quantitative (DVT/PE )on 11-05-2024 D-DIMER QUANT < 0.27 Low 0.27-0.49 [facility] Comment on above: Result Comment: NORM AL D-Dimer level (<0.50) indicates no DVT or PE. Performed By: #### L 501.5200, L501.4021, L500.2500, L100.0100, L501.9520, L300.8000 ####[facility] [address] [facility] [place], [address] Emergency Department Summary on 11-05-2024 Emergency Department Summary [facility] Medical Records Department [address] [place] [address] Emergency Department Summary 11/05/24 MR#: [id number] Acct: [id number] Name: VERONICA UMAÑA Rep #: [id number] : 1975 49 From: Victor Hugo Suh DO PCP: Care Physician,No Primary Status:DEP ER Location: ED HPI History of Present Illness Chief Complaint: Chest Pain Narrative Narrative: Chief complaint and HPI: Chest pain. 49-year-old female with past medical history of anxiety, chronic pain, HTN presents for evaluation of chest pain. Patient states prior to arrival after bending over she obtained left-sided chest pain. Associated symptom is mild shortness of breath and hypertension. Patient states that she has been having a lot of different symptoms over the past week. On chart review, she has been seen in our emergency department on the and . On the she presented for concern of allergic reaction and on the presented for concern of serotonin syndrome. Patient ultimately discharged home. Followed up with physician who is not her PCP who is weaning her off her medications for concern of possible serotonin syndrome. Patient states that she has been frequently checking her blood pressure every hour as it has been high. She states she was checking her blood pressure during this episode. Review of systems: See HPI Medications: As listed on the chart Allergies: As listed on the chart PFSH: Per chart Vital signs: As listed on the chart. Reviewed. Physical exam: Gen: A O x3, intermittently tearful, anxious Head: Normocephalic, atraumatic Eyes: No sclera icterus, conjunctiva clear, PERRL ENT: Moist mucous membranes Neck: Trachea midline, No JVD CV: RRR, no murmurs, no peripheral edema Resp: Lungs CTA BL, no w/r/c GI: Abd soft, non-distended, non-tender, no r/r/g Musc: Full ROM, no deformity Skin: Warm, dry Neuro: Alert, oriented, grossly intact, sensation intact Psych: Cooperative, appropriate mood and affect PFS PFS Medical History Fear of travel with panic attacks Tachycardia Fatigue Vitamin D deficiency Anxiety Fluctuating blood pressure Intermittent palpitations SOB (shortness of breath) Abnormal finding on thyroid function test Dyspareunia Urge incontinence Urinary tract infection Hypertension Neck pain Back pain Insomnia Home Medications ???Medication ???Instructions ???Recorded ???Last Taken ???Type clonazepam 0.5 mg tablet 0.5 mg PO Q12H 09/10/22 11/04/24 H istory metoprolol succinate 25 mg 25 mg PO BID 09/10/22 11/05/24 His tory tablet,extended release 24 hr lorazepam 0.5 mg tablet (Ativan) 0.5 mg PO BID PRN anxiety 2 days 0 11/05/24 Unknown Rx #4 tabs Allergy/AdvReac Type Severity Reaction Status Date / Time Quinolones Allergy Hives Verified 10/31/24 07:24 Sulfa (Sulfonamide Allergy Hives Verified 10/31/24 07:24 Antibiotics) azithromycin (From Zithromax AdvReac Upset Verified 10/31/24 07:24 Z-Boubacar) Stomach Family History Father Hypertension Yesica-Danlos syndrome Mother Breast cancer Hypertension Grandfather Heart disease Diabetes Hypertension CVA (cerebral vascular accident) Grandmother Hypertension Thyroid disorder Breast cancer CVA (cerebral vascular accident) Aunt Thyroid disorder CVA (cerebral vascular accident) Yesica-Danlos syndrome Surgical History Status post glaucoma surgery S/P S/P sinus surgery s/p left shoulder surgery Social History Smoking Status: Never smoker alcohol intake: current details: occasionally substance use type: does not use caffeine: Yes what type of physical activity do you participate in: walking frequency: 3-4 times per week duration: 15-30 minutes/day seatbelt use: always do you feel safe at home: Yes additional social history: [employer] 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 EXAM Physical Exam Const Vital Signs: 11/05/24 15:29 11/05/24 15:34 11/05/24 16:10 Temperature 98.2 F Temperature Source Temporal Pulse Rate 93 84 Respiratory Rate 16 17 Respiratory Effort Short of Breath Blood Pressure 166/112 H 169/104 H Blood Pressure Mean 130 125 Pulse Ox 100 100 Oxygen Delivery Method Room Air Room Air 11/05/24 18:24 11/05/24 19:36 Temperature 98 F Temperature Source Pulse Rate 85 85 Respiratory Rate 15 18 Respiratory Effort Blood Pressure 141/91 H 143/90 H Blood Pressure Mean 107 107 Pulse Ox 100 100 Oxygen Delivery Method Room Air MDM MDM MDM Narrative Medical decision making narrative: 49-year-o (more content not included)... Normal [facility] Eosinophil percentageOrdered By: Victor Hugo Suh on 11-05-2024 Eosinophils/100 WBC (Bld) 0.5 % 0-5 [facility] Erythrocyte distribution wid th ratioOrdered By: Victor Hugo Suh on 11-05-2024 Erythrocyte distribution width (RBC) [Ratio] 12.5 % 11.6-14.6 [facility] Erythrocyte distribution wid th standard deviationOrdered By: Victor Hugo Campoverde on 11-05-2024 Erythrocyte distribution width (RBC) [Ratio] 42.7 fl 35.1-43.9 [facility] Glomerular filtration rate ( GFR) estimation/1.73 sq m using serum, plasma, or whole bOrdered By: Victor Hugo Suh on 11-05-2024 GFR/1.73 sq M.predicted among non-blacks MDRD (S/P/Bld) [Vol rate/Area] 105 mL/min/{1.73_m2} >60 [facility] Comment on above: mL/min/1.73m2 CKD-EP I Creatinine Equation (2020) Hematocrit Auto (Bld) [Volum e fraction]Ordered By: Victor Hugo Suh on 11-05-2024 Hematocrit (Bld) [Volume fraction] 39.4 % 37-47 [facility] Hemoglobin measurementOrdere d By: Victor Hugo Suh on 11-05-2024 Hemoglobin (Bld) [Mass/Vol] 13.4 g/dL 12.0-15.0 [facility] Immature granulocytes/100 WB C Auto (Bld)Ordered By: Victor Hugo Suh on 11-05-2024 Immature granulocytes/100 WBC (Bld) 0.500 % 0.0-0.9 [facility] Comment on above: IG% - Immature Granu locytes (promyelocytes, myelocytes and metamyelocytes) > 1% indicates that a LEFT SHIFT is Present. L499.0042on 11-05-2024 Trop T High Sen < 6 Normal <=14 [facility] Comment on above: Performed By: #### L 499.0042 #### [facility] [address] [place], [address] L501.4021on 11-05-2024 Trop T High Sen < 6 Normal <=14 [facility] Comment on above: Performed By: #### L 501.5200, L501.4021, L500.2500, L100.0100, L501.9520, L300.8000 ####[facility] [address] [place], [address] MCV (mean corpuscular volume ) determinationOrdered By: Victor Hugo Suh on 11-05-2024 MCV (RBC) [Entitic vol] 93.8 fL 81-99 [facility] Magnesiumon 11-05-2024 Magnesium [Mass/Vol] 2.3 mg/dL High 1.5-2.[address] [facility] Comment on above: Performed By: #### L 501.5200, L501.4021, L500.2500, L100.0100, L501.9520, L300.8000 ####[facility] [address] [place], [address] Magnesium measurement (mass/ volume)Ordered By: Victor Hugo Suh on 11-05-2024 Magnesium (Unsp spec) [Mass/Vol] 2.3 mg/dL High 1.5-2.2 [facility] Mean corpuscular hemoglobin (MCH) determinationOrdered By: Victor Hugo Suh on 11-05-2024 MCH (RBC) [Entitic mass] 31.9 pg 27.0-32.0 [facility] Mean corpuscular hemoglobin concentration (MCHC) determinationOrdered By: Victor Hugo Suh on 11-05-2024 MCHC (RBC) [Mass/Vol] 34.0 g/dL 32-36 [facility] Mean platelet volume determi nationOrdered By: Victor Hugo Suh on 11-05-2024 Platelet mean volume (Bld) [Entitic vol] 9.9 fL 6.2-12.0 [facility] Monocyte percentageOrdered B y: Victor Hugo Suh on 11-05-2024 Monocytes/100 WBC (Bld) 7.7 % 0-10 [facility] Neutrophil percentageOrdered By: Victor Hugo Suh on 11-05-2024 Neutrophils/100 WBC (Bld) 65.8 % 47-70 [facility] Nucleated red blood cell per centageOrdered By: Victor Hugo Suh on 11-05-2024 Nucleated RBC/100 WBC (Bld) [Ratio] 0 % 0-5 [facility] Platelet countOrdered By: Luis Suh on 11-05-2024 Platelets (Bld) [#/Vol] 290 10*3/uL 150-450 [facility] Potassium measurement (mass/ volume)Ordered By: Victor Hugo Suh on 11-05-2024 Potassium (Unsp spec) [Mass/Vol] 3.9 mmol/L 3.3-5.1 [facility] RBC Auto (Bld) [#/Vol]Ordere d By: Victor Hugo Suh on 11-05-2024 RBC (Bld) [#/Vol] 4.20 10*6/uL 4.2-5.4 [facility] Serum creatinine measurement (mass/volume)Ordered By: Victor Hugo Suh on 11-05-2024 Creatinine [Mass/Vol] 0.69 mg/dL Low 0.70-1.20 [facility] Serum glucose measurement (m ass/volume)Ordered By: Victor Hugo Suh on 11-05-2024 Glucose [Mass/Vol] 109 mg/dL High 70-99 [facility] Serum or plasma calcium herberth urement (mass/volume)Ordered By: Victor Hugo Campoverde on 11-05-2024 Calcium [Mass/Vol] 9.7 mg/dL 7.6-11.0 [facility] Serum or plasma urea nitroge n measurement (mass/volume)Ordered By: Victor Hugo Suh on 11-05-2024 Urea nitrogen [Mass/Vol] 16 mg/dL 4-19 [facility] Sodium levelOrdered By: Chad Suh on 11-05-2024 Sodium [Moles/Vol] 139 mmol/L 133-145 [facility] TSH DL <= 0.005 mIU/L QnOrde red By: Victor Hugo Suh on 11-05-2024 TSH Qn 0.524 uIU/mL 0.300-4.200 [facility] Thyroid Stim Hormone (TSH)on 11-05-2024 TSH 0.524 uIU/mL Normal 0.300-4.200 [facility] Comment on above: Performed By: #### L 501.5200, L501.4021, L500.2500, L100.0100, L501.9520, L300.8000 ####[facility] [address] [place], [address] Troponin T.cardiac [Mass/vol ume] in Serum or Plasma by High sensitivity methodOrdered By: Victor Hugo Suh on 11-05-2024 Troponin T.cardiac High sensitivity method [Mass/Vol] < 6 ng/L <14 [facility] Troponin T.cardiac High sensitivity method [Mass/Vol] < 6 ng/L <14 [facility] Comment on above: Delta: 7 on 10/26/24 -623 White blood cell (WBC) count Ordered By: Victor Hugo Suh on 11-05-2024 WBC (Bld) [#/Vol] 6.5 10*3/uL 4.4-11.0 [facility] 12 Lead EKGon 10-31-2024 12 Lead EKG [facility] Cardiovascular Services [address] [place] [address] 12 Lead EKG 10/31/24 0753 MR#: [id number] Acct: [id number] Name: CHASIDYVERONICA MARIO Rep #: [id number] : 1975 49 From: Jennyfer sEpinoza MD Attending Dr: Status: DEP ER Ordering Dr: Jose Alexis MD Date: 10/31/24 Location: ED Sex: F C Admitted: Test Reason : Blood Pressure : */* mmHG Vent. Rate : 90 BPM Atrial Rate : 90 BPM P-R Int : 128 ms QRS Dur : 90 ms QT Int : 350 ms P-R-T Axes : 78 74 81 degrees QTcB Int : 428 ms Normal sinus rhythm Normal ECG Confirmed by JENNYFER ESPINOZA ([id number]), dictionary editor VERONICA ESCOBAR ([id number]) on 11/05/2024 8:05:56 AM Referred By: Confirmed By: JENNYFER ESPINOZA 11/05/24 0805 Date Jennyfer Espinoza MD CC: RAYRAY Aguilar; Dr. Jose Alexis MD Signed Normal [facility] Absolute lymphocyte countOrd ered By: Jose Alexis on 10-31-2024 Lymphocytes Auto (Unsp spec) [#/Vol] 1.57 10*3/uL 0.83-4.51 [facility] Absolute neutrophil countOrd ered By: Jose Alexis on 10-31-2024 Neutrophils (Bld) [#/Vol] 7.0 10*3/uL 2.0-7.7 [facility] Alcohol, Blood (Medical)-Ser umon 10-31-2024 SERUM ETOH < 10.1 Normal <=10.0 [facility] Comment on above: Result Comment: This test is for medical purposes only. The legal definition of intoxication varies according to local law. Performed By: #### L 400.0001 #### [facility] [address] [place] [address], [address] Amphetamine detection with 1 000 ng/mL as cutoffOrdered By: Jose Alexis on 10-31-2024 Amphetamines Screen method >1000 ng/mL Ql (U) Negative < 200 ng/mL [facility] Anion gap in Serum or Plasma Ordered By: Jose Alexis on 10-31-2024 Anion gap [Moles/Vol] 12 mmol/L 5-15 [facility] Automated lymphocyte count a s percentage of total leukocytesOrdered By: Jose Alexis on 10-31-2024 Lymphocytes/100 WBC Auto (Unsp spec) 16.8 % Low 19-41 [facility] BUN/creatinine ratioOrdered By: Jose Alexis on 10-31-2024 Urea nitrogen/Creatinine [Mass ratio] 14.4 mg/mg 10-20 [facility] Basophil percentageOrdered B y: Jose Alexis on 10-31-2024 Basophils/100 WBC (Bld) 0.6 % 0-1 [facility] Bilirubin, totalOrdered By: Jose Alexis on 10-31-2024 Bilirubin [Mass/Vol] 0.86 mg/dL 0.00-1.[address] [facility] CBC W/Diff, Automatedon 10-05 Absolute Lymph 1.57 X10 3/uL Normal 0.83-4.51 [facility] Comment on above: Performed By: #### L 500.4050, L100.0100 ####[facility] [address] [place], [address] Absolute Neut 7.0 X10 3/uL Normal 2.0-7.7 [facility] Comment on above: Performed By: #### L 500.4050, L100.0100 ####[facility] [address] [place], [address] Basophils/100 WBC (Bld) 0.6 % Normal 0-1 [facility] Comment on above: Performed By: #### L 500.4050, L100.0100 ####[facility] [address] [place], [address] Eosinophils/100 WBC (Bld) 0.1 % Normal 0-5 [facility] Comment on above: Performed By: #### L 500.4050, L100.0100 ####[facility] [address] [place], [address] Erythrocyte distribution width (RBC) [Ratio] 12.6 % Normal 11.6-14.6 [facility] Comment on above: Performed By: #### L 500.4050, L100.0100 ####[facility] [address] [place], [address] Hematocrit (Bld) [Volume fraction] 38.9 % Normal 37-47 [facility] Comment on above: Performed By: #### L 500.4050, L100.0100 ####[facility] [address] [place], [address] Hemoglobin (Bld) [Mass/Vol] 13.5 g/dL Normal 12.0-15.0 [facility] Comment on above: Performed By: #### L 500.4050, L100.0100 ####[place] [facility] [address] [place], [address] IG% 0.500 Normal 0.0-0.9 [facility] Comment on above: Result Comment: IG% - Immature Granulocytes (promyelocytes, myelocytes and metamyelocytes) > 1% indicates that a LEFT SHIFT is Present. Performed By: #### L 500.4050, L100.0100 ####[facility] [address] [place], [address] Lymphocytes/100 WBC (Bld) 16.8 % Low 19-41 [facility] Comment on above: Performed By: #### L 500.4050, L100.0100 ####[facility] [address] [place], [address] MCH (RBC) [Entitic mass] 32.2 pg High 27.0-32.0 [facility] Comment on above: Performed By: #### L 500.4050, L100.0100 ####[facility] [address] [place], [address] MCHC (RBC) [Mass/Vol] 34.7 g/dL Normal 32-36 [facility] Comment on above: Performed By: #### L 500.4050, L100.0100 ####[facility] [address] [place], [address] MCV (RBC) [Entitic vol] 92.8 fL Normal 81-99 [facility] Comment on above: Performed By: #### L 500.4050, L100.0100 ####[facility] [address] [place], [address] Monocytes/100 WBC (Bld) 7.4 % Normal 0-10 [facility] Comment on above: Performed By: #### L 500.4050, L100.0100 ####[facility] [address] [place], [address] Neutrophils/100 WBC (Bld) 74.6 % High 47-70 [facility] Comment on above: Performed By: #### L 500.4050, L100.0100 ####[facility] [address] [place], [address] Nucleated RBC (Bld) [#/Vol] 0 10*3/uL Normal 0-5 [facility] Comment on above: Performed By: #### L 500.4050, L100.0100 ####[facility] [address] [place], [address] Platelet mean volume (Bld) [Entitic vol] 9.9 fL Normal 6.2-12.0 [facility] Comment on above: Performed By: #### L 500.4050, L100.0100 ####[facility] [address] [place], [address] Platelets (Bld) [#/Vol] 314 10*3/uL Normal 150-450 [facility] Comment on above: Performed By: #### L 500.4050, L100.0100 ####[facility] [address] [place], [address] RBC (Bld) [#/Vol] 4.19 10*6/uL Low 4.2-5.4 [facility] Comment on above: Performed By: #### L 500.4050, L100.0100 ####[facility] [address] [place], [address] RDW SD 42.2 fl Normal 35.1-43.9 [facility] Comment on above: Performed By: #### L 500.4050, L100.0100 ####[facility] [address] [place], [address] WBC (Bld) [#/Vol] 9.4 10*3/uL Normal 4.4-11.0 [facility] Comment on above: Performed By: #### L 500.4050, L100.0100 ####[facility] [address] [place], [address] Carbon dioxide, total [Moles /volume] in Central venous bloodOrdered By: Jose Alexis on 10-31-2024 CO2 [Moles/Vol] 23.6 mmol/L 21.0-32.0 [facility] Chloride assayOrdered By: Lex Alexis on 10-31-2024 Chloride [Moles/Vol] 101 mmol/L 98-[address] [facility] Comprehensive Metabolic Prof ilon 10-31-2024 Albumin [Mass/Vol] 4.6 g/dL Normal 3.5-5.0 [facility] Comment on above: Performed By: #### L 500.4050, L100.0100 ####[facility] [address] [place], [address] Albumin/Globulin [Mass ratio] 1.8 {ratio} Normal 0.9-2.4 [facility] Comment on above: Performed By: #### L 500.4050, L100.0100 ####[facility] [address] [place], [address] ALK PHOS 65 U/L Normal 35-104 [facility] Comment on above: Performed By: #### L 500.4050, L100.0100 ####[facility] [address] [place], [address] ALT [Catalytic activity/Vol] 33 U/L Normal <=34 [facility] Comment on above: Performed By: #### L 500.4050, L100.0100 ####[facility] [address] [place], [address] AST [Catalytic activity/Vol] 22 U/L Normal <=31 [facility] Comment on above: Performed By: #### L 500.4050, L100.0100 ####[facility] [address] [place], [address] Bilirubin [Mass/Vol] 0.86 mg/dL Normal 0.00-1.[address] [facility] Comment on above: Performed By: #### L 500.4050, L100.0100 ####[facility] [address] [place], [address] BUN/CRE 14.4 RATIO Normal 10-20 [facility] Comment on above: Performed By: #### L 500.4050, L100.0100 ####[facility] [address] [place], [address] Calcium [Mass/Vol] 9.7 mg/dL Normal 7.6-11.0 [facility] Comment on above: Performed By: #### L 500.4050, L100.0100 ####[facility] [address] [place], [address] Chloride [Moles/Vol] 101 mmol/L Normal 98-[address] [facility] Comment on above: Performed By: #### L 500.4050, L100.0100 ####[facility] [address] [place], [address] CO2 [Moles/Vol] 23.6 mmol/L Normal 21.0-32.0 [facility] Comment on above: Performed By: #### L 500.4050, L100.0100 ####[facility] [address] [place], [address] Creatinine [Mass/Vol] 0.60 mg/dL Low 0.70-1.20 [facility] Comment on above: Performed By: #### L 500.4050, L100.0100 ####[facility] [address] [place], [address] ECRCL 116.86 ml/min Normal 50-250 [facility] Comment on above: Performed By: #### L 500.4050, L100.0100 ####[facility] [address] [place], [address] GAP 12 Normal 5-15 [facility] Comment on above: Performed By: #### L 500.4050, L100.0100 ####[facility] [address] [place], [address] GFR/1.73 sq M.predicted among non-blacks MDRD (S/P/Bld) [Vol rate/Area] 108 mL/min/{1.73_m2} Normal >60 [facility] Comment on above: Result Comment: mL/m in/1.73m2 CKD-EPI Creatinine Equation (2020) Performed By: #### L 500.4050, L100.0100 ####[facility] [address] [place], [address] Globulin (S) [Mass/Vol] 2.5 g/dL Normal 2.2-4.2 [facility] Comment on above: Performed By: #### L 500.4050, L100.0100 ####[facility] [address] [place], [address] Glucose [Mass/Vol] 133 mg/dL High 70-99 [facility] Comment on above: Performed By: #### L 500.4050, L100.0100 ####[facility] [address] [place], [address] Potassium [Moles/Vol] 3.8 mmol/L Normal 3.3-5.1 [facility] Comment on above: Performed By: #### L 500.4050, L100.0100 ####[facility] [address] [place], [address] Sodium [Moles/Vol] 137 mmol/L Normal 133-145 [facility] Comment on above: Performed By: #### L 500.4050, L100.0100 ####[facility] [address] [place], [address] T PROT 7.1 g/dL Normal 5.9-8.4 [facility] Comment on above: Performed By: #### L 500.4050, L100.0100 ####[facility] [address] [place], [address] Urea nitrogen [Mass/Vol] 9 mg/dL Normal 4-19 [facility] Comment on above: Performed By: #### L 500.4050, L100.0100 ####[facility] [address] [place], [address] Emergency Department Summary on 10-31-2024 Emergency Department Summary [facility] Medical Records Department [address] [place] [address] Emergency Department Summary 10/31/24 MR#: [id number] Acct: [id number] Name: VERONICA UMAÑA Rep #: [id number] : 1975 49 From: Jose Alexis MD PCP: Elinor Aguilar NP-C Status:REG ER Location: ED HPI History of Present Illness Chief Complaint: General Illness Narrative Narrative: 49-year-old female presents with concern for allergic reaction versus polypharmacy. She stated that she thinks that she is having a serotonin syndrome. She is also on multiple medications. She takes cyclobenzaprine, clonazepam, gabapentin, and metoprolol for hypertension. She states that she was started on naltrexone as well as ivermectin. Of note she was seen in the emergency department last week on , approximately 6 days ago where she was concerned that she was having an allergic type reaction. She states she wakes up with dry mouth and feeling tense. Additionally, she feels her heart racing. Her blood pressure is elevated at times. She states that she woke up with a pink rash all over. She is concerned that with her polypharmacy, she stopped taking her medications, and that she might need observation to make sure she does not have a seizure. 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 [facility] Medical History Fear of travel with panic attacks Tachycardia Fatigue Vitamin D deficiency Anxiety Fluctuating blood pressure Intermittent palpitations SOB (shortness of breath) Abnormal finding on thyroid function test Dyspareunia Urge incontinence Urinary tract infection Hypertension Neck pain Back pain Insomnia Home Medications ???Medication ???Instructions ???Recorded ???Last Taken ???Type tramadol 50 mg tablet 50 mg PO DAILY 02/28/19 Unknown Hi story clonazepam 0.5 mg tablet 0.5 mg PO QHS 09/10/22 10/26/24 Hi story metoprolol succinate 25 mg 25 mg PO BID 09/10/22 Unknown Hist ory tablet,extended release 24 hr cyclobenzaprine 10 mg tablet 10 mg PO TID 10/26/24 Unknown Hist ory gabapentin 100 mg capsule 100 - 200 mg PO DAILY PRN pain Unknown History Allergy/AdvReac Type Severity Reaction Status Date / Time Quinolones Allergy Hives Verified 10/31/24 07:24 Sulfa (Sulfonamide Allergy Hives Verified 10/31/24 07:24 Antibiotics) azithromycin (From Zithromax AdvReac Upset Verified 10/31/24 07:24 Z-Boubacar) Stomach Family History Father Hypertension Yesica-Danlos syndrome Mother Breast cancer Hypertension Grandfather Heart disease Diabetes Hypertension CVA (cerebral vascular accident) Grandmother Hypertension Thyroid disorder Breast cancer CVA (cerebral vascular accident) Aunt Thyroid disorder CVA (cerebral vascular accident) Yesica-Danlos syndrome Surgical History Status post glaucoma surgery S/P S/P sinus surgery s/p left shoulder surgery Social History Smoking Status: Never smoker alcohol intake: current details: occasionally substance use type: does not use caffeine: Yes what type of physical activity do you participate in: walking frequency: 3-4 times per week duration: 15-30 minutes/day seatbelt use: always do you feel safe at home: Yes additional social history: Cqrsphr-Xyztv-Unmvfrzhs tor 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 HEENT: No sore throat. No neck pain. Positive dry mouth no rhinorrhea. Cardiovascular: No chest pain. Positive palpitations. No pedal edema. Respiratory: No cough, no shortness of breath. Abdominal: No abdominal pain. No nausea. No vomiting. Genitourinary: No dysuria. No hematuria. Musculoskeletal: No myalgias. No arthralgias. Positive muscle contractions. Neurologic: No headaches. No dizziness. No lightheadedness. Skin: Reported pink rash. No change in color. Psychiatric: No depression. No anxiety. EXAM Physical Exam Narrative Exam Narrative: Afebrile. Vital signs noted. Nontoxic-appearing. Cardiovascular semination reveals mild tachycardia. Lungs are clear to auscultation bilaterally. Abdomen is soft and nontender without guarding or rebound. Neurological examination nonfocal, nonlateralizing. Able to transfer to and from cot. Able to stand and walk in emergency department. Psychiatric examination reveals positive anxiety and positive flight of ideas. Const Vital Signs: 10/31/24 07:20 10/31/24 07:27 10/31/24 09:20 Temperature 98.4 F Temperature Source Oral Pulse Rate 107 H 88 Respiratory Rate 20 H 19 H Respiratory Pattern Tachypnea Blood Pressure 185/101 H 143/94 H (more content not included)... Normal [facility] Eosinophil percentageOrdered By: Jose Alexis on 10-31-2024 Eosinophils/100 WBC (Bld) 0.1 % 0-5 [facility] Erythrocyte distribution wid th ratioOrdered By: Jose Alexis on 10-31-2024 Erythrocyte distribution width (RBC) [Ratio] 12.6 % 11.6-14.6 [facility] Erythrocyte distribution wid th standard deviationOrdered By: Jose Alexis on 10-31-2024 Erythrocyte distribution width (RBC) [Ratio] 42.2 fl 35.1-43.9 [facility] Glomerular filtration rate ( GFR) estimation/1.73 sq m using serum, plasma, or whole bOrdered By: Jose Alexis on 10-31-2024 GFR/1.73 sq M.predicted among non-blacks MDRD (S/P/Bld) [Vol rate/Area] 108 mL/min/{1.73_m2} >60 [facility] Comment on above: mL/min/1.73m2 CKD-EP I Creatinine Equation (2020) Hematocrit Auto (Bld) [Volum e fraction]Ordered By: Jose Alexis on 10-31-2024 Hematocrit (Bld) [Volume fraction] 38.9 % 37-47 [facility] Hemoglobin measurementOrdere d By: Jose Alexis on 10-31-2024 Hemoglobin (Bld) [Mass/Vol] 13.5 g/dL 12.0-15.0 [facility] Immature granulocytes/100 WB C Auto (Bld)Ordered By: Jose Alexis on 10-31-2024 Immature granulocytes/100 WBC (Bld) 0.500 % 0.0-0.9 [facility] Comment on above: IG% - Immature Granu locytes (promyelocytes, myelocytes and metamyelocytes) > 1% indicates that a LEFT SHIFT is Present. Laboratory - Chemistry and C hemistry - challengeOrdered By: Jose Alexis on 10-31-2024 AST [Catalytic activity/Vol] 22 U/L <32 [facility] MCV (mean corpuscular volume ) determinationOrdered By: Jose Alexis on 10-31-2024 MCV (RBC) [Entitic vol] 92.8 fL 81-99 [facility] Mean corpuscular hemoglobin (MCH) determinationOrdered By: Jose Alexis on 10-31-2024 MCH (RBC) [Entitic mass] 32.2 pg High 27.0-32.0 [facility] Mean corpuscular hemoglobin concentration (MCHC) determinationOrdered By: Jose Alexis on 10-31-2024 MCHC (RBC) [Mass/Vol] 34.7 g/dL 32-36 [facility] Mean platelet volume determi nationOrdered By: Jose Alexis on 10-31-2024 Platelet mean volume (Bld) [Entitic vol] 9.9 fL 6.2-12.0 [facility] Monocyte percentageOrdered B y: Jose Alexis on 10-31-2024 Monocytes/100 WBC (Bld) 7.4 % 0-10 [facility] Neutrophil percentageOrdered By: Jose Alexis on 10-31-2024 Neutrophils/100 WBC (Bld) 74.6 % High 47-70 [facility] No Panel InformationOrdered By: Jose Alexis on 10-31-2024 Urine Buprenorphine Qualitative Negative < 200 ng/mL [facility] Urine Oxycodone Screen Negative < 100 ng/mL [facility] Nucleated red blood cell per centageOrdered By: Jose Alexis on 10-31-2024 Nucleated RBC/100 WBC (Bld) [Ratio] 0 % 0-5 [facility] Platelet countOrdered By: Lex Alexis on 10-31-2024 Platelets (Bld) [#/Vol] 314 10*3/uL 150-450 [facility] Potassium measurement (mass/ volume)Ordered By: Jose Alexis on 10-31-2024 Potassium (Unsp spec) [Mass/Vol] 3.8 mmol/L 3.3-5.1 [facility] ,Serum,hCG Quali.on 10-31-2024 HCG, SERUM QUAL Negative Normal [facility] Comment on above: Performed By: #### L 400.0001 #### [facility] [address] [place] [address], [address] Quantitative urine opiates m easurementOrdered By: Jose Alexis on 10-31-2024 Opiates Ql (U) Negative < 300 ng/mL [facility] RBC Auto (Bld) [#/Vol]Ordere d By: Jose Alexis on 10-31-2024 RBC (Bld) [#/Vol] 4.19 10*6/uL Low 4.2-5.4 [facility] Screening urine fentanyl kristine surementOrdered By: Jose Alexis on 10-31-2024 fentaNYL Screen Ql (U) Negative [facility] Serum beta-hCG test, qualita tiveOrdered By: Jose Alexis on 10-31-2024 Beta HCG ( test) Ql Negative [facility] Serum creatinine measurement (mass/volume)Ordered By: Jose Alexis on 10-31-2024 Creatinine [Mass/Vol] 0.60 mg/dL Low 0.70-1.20 [facility] Serum globulin measurementOr dered By: Jose Alexis on 10-31-2024 Globulin (S) [Mass/Vol] 2.5 g/dL 2.2-4.2 [facility] Serum glucose measurement (m ass/volume)Ordered By: Jose Alexis on 10-31-2024 Glucose [Mass/Vol] 133 mg/dL High 70-99 [facility] Serum or plasma alanine kirk otransferase (ALT) measurementOrdered By: Jose Alexis on 10-31-2024 ALT [Catalytic activity/Vol] 33 U/L <35 [facility] Serum or plasma albumin herberth urement (mass/volume)Ordered By: Jose Alexis on 10-31-2024 Albumin [Mass/Vol] 4.6 g/dL 3.5-5.0 [facility] Serum or plasma albumin/glob ulin mass ratioOrdered By: Jose Alexis on 10-31-2024 Albumin/Globulin [Mass ratio] 1.8 {ratio} 0.9-2.4 [facility] Serum or plasma alkaline joseph sphatase measurementOrdered By: Jose Alexis on 10-31-2024 ALP [Catalytic activity/Vol] 65 U/L 35-104 [facility] Serum or plasma calcium herberth urement (mass/volume)Ordered By: Jose Alexis on 10-31-2024 Calcium [Mass/Vol] 9.7 mg/dL 7.6-11.0 [facility] Serum or plasma ethanol herberth urement (mass/volume)Ordered By: Jose Alexis on 10-31-2024 Ethanol [Mass/Vol] mg/dL <10.1 [facility] Comment on above: This test is for med ical purposes only. The legal definition of intoxication varies according to local law. Serum or plasma urea nitroge n measurement (mass/volume)Ordered By: Jose Alexis on 10-31-2024 Urea nitrogen [Mass/Vol] 9 mg/dL 4-19 [facility] Sodium levelOrdered By: Jose Alexis on 10-31-2024 Sodium [Moles/Vol] 137 mmol/L 133-145 [facility] Total proteinOrdered By: Lauren Alexis on 10-31-2024 Protein [Mass/Vol] 7.1 g/dL 5.9-8.4 [facility] Urine Drug Screen (VISTA)on 10-31-2024 AMPHETAMINES Negative Normal <1000 ng/mL [facility] Comment on above: Performed By: #### L 400.0001 #### [facility] [address] [place] [address] BARBITIURATES Negative Normal < 200 ng/mL [facility] Comment on above: Performed By: #### L 400.0001 #### [facility] [address] [place] [address] BENZODIAZIPINE Negative Normal < 200 ng/mL [facility] Comment on above: Performed By: #### L 400.0001 #### [facility] [address] [place] [address] BUP Ur Drug Scr Negative Normal < 200 ng/mL [facility] Comment on above: Performed By: #### L 400.0001 #### [facility] [address] [place] [address] COCAINE Negative Normal < 300 ng/mL [facility] Comment on above: Performed By: #### L 400.0001 #### [facility] [address] [place] [address] Fentanyl Negative Normal [facility] Comment on above: Performed By: #### L 400.0001 #### [facility] [address] [place] [address] [address] [place] [address] METHADONE Negative Normal < 300 ng/mL [facility] Comment on above: Performed By: #### L 400.0001 #### [facility] [address] [place] [address] OPIATES Negative Normal < 300 ng/mL [facility] Comment on above: Performed By: #### L 400.0001 #### [facility] [address] [place] [id number] OXYCODONE Negative Normal < 100 ng/mL [facility] Comment on above: Performed By: #### L 400.0001 #### [facility] [address] [place], [place], [address] PCP Negative Normal < 25 ng/mL [facility] Comment on above: Performed By: #### L 400.0001 #### [facility] [address] [place], [place], [address] THC Negative Normal < 50 ng/mL [facility] Comment on above: Performed By: #### L 400.0001 #### [facility] [address] [place], [place], [address] Urine benzodiazepine levelOr dered By: Jose Alexis on 10-31-2024 Benzodiazepines Ql (U) Negative < 200 ng/mL [facility] Urine cocaine levelOrdered B y: Jose Alexis on 10-31-2024 Cocaine Ql (U) Negative < 300 ng/mL [facility] Urine hptrx-8-crvhxtonnmoqhm abinol (THC) measurementOrdered By: Jose Alexis on 10-31-2024 Cannabinoids Screen Ql (U) Negative < 50 ng/mL [facility] Urine phencyclidine (PCP) de tectionOrdered By: Jose Alexis on 10-31-2024 Phencyclidine Ql (U) Negative < 25 ng/mL [facility] White blood cell (WBC) count Ordered By: Jose Alexis on 10-31-2024 WBC (Bld) [#/Vol] 9.4 10*3/uL 4.4-11.0 [facility] 12 Lead EKGon 10-26-2024 12 Lead EKG [facility] [address] [place] [address] 12 Lead EKG 10/26/24 0624 MR#: [id number] Acct: [id number] Name: VERONICA UMAÑA Rep #: [id number] : 1975 49 From: Dillon Florez MD Attending Dr: Status: DEP ER Ordering Dr: Ramesh Coffey DO Date: 10/26/24 Location: ED Sex: F C Admitted: Test Reason : DYSRHYTHMIA Blood Pressure : */* mmHG Vent. Rate : 87 BPM Atrial Rate : 87 BPM P-R Int : 140 ms QRS Dur : 96 ms QT Int : 366 ms P-R-T Axes : 74 62 53 degrees QTcB Int : 440 ms Normal sinus rhythm Normal ECG Confirmed by LILIA COLLINS, DILLON ([id number]), dictionary editor VERONICA ESCOBAR ([id number]) on 10/30/2024 6:59:46 AM Referred By: Confirmed By: DILLON FLOREZ MD 10/30/24 0659 Date Dillon Florez MD CC: PLATFORM MATERIAL HANDLER MANAGERRadha Aguilar; Dr. Ramesh Coffey, DO Signed Normal [facility] Absolute lymphocyte countOrd ered By: Ramesh Coffey on 10-26-2024 Lymphocytes Auto (Unsp spec) [#/Vol] 1.51 10*3/uL 0.83-4.51 [facility] Absolute neutrophil countOrd ered By: Ramesh Coffey on 10-26-2024 Neutrophils (Bld) [#/Vol] 5.4 10*3/uL 2.0-7.7 [facility] Anion gap in Serum or Plasma Ordered By: Ramesh Coffey on 10-26-2024 Anion gap [Moles/Vol] 14 mmol/L 5-15 [facility] Automated lymphocyte count a s percentage of total leukocytesOrdered By: Ramesh Coffey on 10-26-2024 Lymphocytes/100 WBC Auto (Unsp spec) 19.7 % 19-41 [facility] BUN/creatinine ratioOrdered By: Ramesh Coffey on 10-26-2024 Urea nitrogen/Creatinine [Mass ratio] 12.6 mg/mg 10-20 [facility] Basophil percentageOrdered B y: Ramesh Coffey on 10-26-2024 Basophils/100 WBC (Bld) 0.5 % 0-1 [facility] Bilirubin Test strip Ql (U)O rdered By: Ramesh Coffey on 10-26-2024 Bilirubin Ql (U) Negative Negative [facility] Bilirubin, totalOrdered By: Ramesh Coffey on 10-26-2024 Bilirubin [Mass/Vol] 0.86 mg/dL 0.00-1.[address] [facility] CBC W/Diff, Automatedon 10-05 Absolute Lymph 1.51 X10 3/uL Normal 0.83-4.51 [facility] Comment on above: Performed By: #### L 100.0100, L501.2450, L500.4050, L501.4021 #### [facility] [address] [place], [address] Absolute Neut 5.4 X10 3/uL Normal 2.0-7.7 [facility] Comment on above: Performed By: #### L 100.0100, L501.2450, L500.4050, L501.4021 #### [facility] [address] [place], [address] Basophils/100 WBC (Bld) 0.5 % Normal 0-1 [facility] Comment on above: Performed By: #### L 100.0100, L501.2450, L500.4050, L501.4021 #### [facility] [address] [place], [address] Eosinophils/100 WBC (Bld) 0.3 % Normal 0-5 [facility] Comment on above: Performed By: #### L 100.0100, L501.2450, L500.4050, L501.4021 #### [facility] [address] [place], [address] Erythrocyte distribution width (RBC) [Ratio] 12.2 % Normal 11.6-14.6 [facility] Comment on above: Performed By: #### L 100.0100, L501.2450, L500.4050, L501.4021 #### [facility] [address] [place], [address] Hematocrit (Bld) [Volume fraction] 37.3 % Normal 37-47 [facility] Comment on above: Performed By: #### L 100.0100, L501.2450, L500.4050, L501.4021 #### [facility] [address] [place], [address] Hemoglobin (Bld) [Mass/Vol] 13.0 g/dL Normal 12.0-15.0 [facility] Comment on above: Performed By: #### L 100.0100, L501.2450, L500.4050, L501.4021 #### [facility] [address] [place], [address] IG% 0.500 Normal 0.0-0.9 [facility] Comment on above: Result Comment: IG% - Immature Granulocytes (promyelocytes, myelocytes and metamyelocytes) > 1% indicates that a LEFT SHIFT is Present. Performed By: #### L 100.0100, L501.2450, L500.4050, L501.4021 #### [facility] [address] [place], [address] Lymphocytes/100 WBC (Bld) 19.7 % Normal 19-41 [facility] Comment on above: Performed By: #### L 100.0100, L501.2450, L500.4050, L501.4021 #### [facility] [address] [place], [address] MCH (RBC) [Entitic mass] 32.2 pg High 27.0-32.0 [facility] Comment on above: Performed By: #### L 100.0100, L501.2450, L500.4050, L501.4021 #### [facility] [address] [place], [address] MCHC (RBC) [Mass/Vol] 34.9 g/dL Normal 32-36 [facility] Comment on above: Performed By: #### L 100.0100, L501.2450, L500.4050, L501.4021 #### [facility] [address] [place], [address] MCV (RBC) [Entitic vol] 92.3 fL Normal 81-99 [facility] Comment on above: Performed By: #### L 100.0100, L501.2450, L500.4050, L501.4021 #### [facility] [address] [place], [address] Monocytes/100 WBC (Bld) 8.5 % Normal 0-10 [facility] Comment on above: Performed By: #### L 100.0100, L501.2450, L500.4050, L501.4021 #### [facility] [address] [place], [address] Neutrophils/100 WBC (Bld) 70.5 % High 47-70 [facility] Comment on above: Performed By: #### L 100.0100, L501.2450, L500.4050, L501.4021 #### [facility] [address] [place], [address] Nucleated RBC (Bld) [#/Vol] 0 10*3/uL Normal 0-5 [facility] Comment on above: Performed By: #### L 100.0100, L501.2450, L500.4050, L501.4021 #### [facility] [address] [place], [address] Platelet mean volume (Bld) [Entitic vol] 9.6 fL Normal 6.2-12.0 [facility] Comment on above: Performed By: #### L 100.0100, L501.2450, L500.4050, L501.4021 #### [facility] [address] [place], [address] Platelets (Bld) [#/Vol] 302 10*3/uL Normal 150-450 [facility] Comment on above: Performed By: #### L 100.0100, L501.2450, L500.4050, L501.4021 #### [facility] [address] [place], [address] RBC (Bld) [#/Vol] 4.04 10*6/uL Low 4.2-5.4 [facility] Comment on above: Performed By: #### L 100.0100, L501.2450, L500.4050, L501.4021 #### [facility] [address] [place], [address] RDW SD 41.5 fl Normal 35.1-43.9 [facility] Comment on above: Performed By: #### L 100.0100, L501.2450, L500.4050, L501.4021 #### [facility] [address] [place], [address] WBC (Bld) [#/Vol] 7.7 10*3/uL Normal 4.4-11.0 [facility] Comment on above: Performed By: #### L 100.0100, L501.2450, L500.4050, L501.4021 #### [facility] [address] [place], [address] Carbon dioxide, total [Moles /volume] in Central venous bloodOrdered By: Ramesh Coffey on 10-26-2024 CO2 [Moles/Vol] 22.4 mmol/L 21.0-32.0 [facility] Chloride assayOrdered By: Ron Coffey on 10-26-2024 Chloride [Moles/Vol] 103 mmol/L 98-[address] [facility] Comprehensive Metabolic Prof ilon 10-26-2024 Albumin [Mass/Vol] 4.6 g/dL Normal 3.5-5.0 [facility] Comment on above: Performed By: #### L 100.0100, L501.2450, L500.4050, L501.4021 #### [facility] [address] [place], [address] Albumin/Globulin [Mass ratio] 1.6 {ratio} Normal 0.9-2.4 [facility] Comment on above: Performed By: #### L 100.0100, L501.2450, L500.4050, L501.4021 #### [facility] [address] [place], [address] ALK PHOS 68 U/L Normal 35-104 [facility] Comment on above: Performed By: #### L 100.0100, L501.2450, L500.4050, L501.4021 #### [facility] [address] [place], [address] ALT [Catalytic activity/Vol] 49 U/L High <=34 [facility] Comment on above: Performed By: #### L 100.0100, L501.2450, L500.4050, L501.4021 #### [facility] [address] [place], [address] AST [Catalytic activity/Vol] 36 U/L High <=31 [facility] Comment on above: Performed By: #### L 100.0100, L501.2450, L500.4050, L501.4021 #### [facility] [address] [place], [address] Bilirubin [Mass/Vol] 0.86 mg/dL Normal 0.00-1.[address] [facility] Comment on above: Performed By: #### L 100.0100, L501.2450, L500.4050, L501.4021 #### [facility] [address] [place], [address] BUN/CRE 12.6 RATIO Normal 10-20 [facility] Comment on above: Performed By: #### L 100.0100, L501.2450, L500.4050, L501.4021 #### [facility] [address] [place], [address] Calcium [Mass/Vol] 9.7 mg/dL Normal 7.6-11.0 [facility] Comment on above: Performed By: #### L 100.0100, L501.2450, L500.4050, L501.4021 #### [facility] [address] [place], [address] Chloride [Moles/Vol] 103 mmol/L Normal 98-[address] [facility] Comment on above: Performed By: #### L 100.0100, L501.2450, L500.4050, L501.4021 #### [facility] [address] [place], [address] CO2 [Moles/Vol] 22.4 mmol/L Normal 21.0-32.0 [facility] Comment on above: Performed By: #### L 100.0100, L501.2450, L500.4050, L501.4021 #### [facility] [address] [place], [address] Creatinine [Mass/Vol] 0.70 mg/dL Normal 0.70-1.20 [facility] Comment on above: Performed By: #### L 100.0100, L501.2450, L500.4050, L501.4021 #### [facility] [address] [place], [address] ECRCL 102.34 ml/min Normal 50-250 [facility] Comment on above: Performed By: #### L 100.0100, L501.2450, L500.4050, L501.4021 #### [facility] [address] [place], [address] GAP 14 Normal 5-15 [facility] Comment on above: Performed By: #### L 100.0100, L501.2450, L500.4050, L501.4021 #### [facility] [address] [place], [address] GFR/1.73 sq M.predicted among non-blacks MDRD (S/P/Bld) [Vol rate/Area] 105 mL/min/{1.73_m2} Normal >60 [facility] Comment on above: Result Comment: mL/m in/1.73m2 CKD-EPI Creatinine Equation (2020) Performed By: #### L 100.0100, L501.2450, L500.4050, L501.4021 #### [facility] [address] [place], [address] Globulin (S) [Mass/Vol] 2.8 g/dL Normal 2.2-4.2 [facility] Comment on above: Performed By: #### L 100.0100, L501.2450, L500.4050, L501.4021 #### [facility] [address] [place], [address] Glucose [Mass/Vol] 123 mg/dL High 70-99 [facility] Comment on above: Performed By: #### L 100.0100, L501.2450, L500.4050, L501.4021 #### [facility] [address] [place], [address] Potassium [Moles/Vol] 4.1 mmol/L Normal 3.3-5.1 [facility] Comment on above: Performed By: #### L 100.0100, L501.2450, L500.4050, L501.4021 #### [facility] [address] [place], [address] Sodium [Moles/Vol] 139 mmol/L Normal 133-145 [facility] Comment on above: Performed By: #### L 100.0100, L501.2450, L500.4050, L501.4021 #### [facility] [address] [place], [address] T PROT 7.4 g/dL Normal 5.9-8.4 [facility] Comment on above: Performed By: #### L 100.0100, L501.2450, L500.4050, L501.4021 #### [facility] [address] [place], [address] Urea nitrogen [Mass/Vol] 9 mg/dL Normal 4-19 [facility] Comment on above: Performed By: #### L 100.0100, L501.2450, L500.4050, L501.4021 #### [facility] [address] [place], [address] Emergency Department Summary on 10-26-2024 Emergency Department Summary [facility] Medical Records Department [address] [place] [address] Emergency Department Summary 10/26/24 MR#: [id number] Acct: [id number] Name: VERONICA UMAÑA Rep #: [id number] : 1975 49 From: Ramesh Coffey DO PCP: RAYRAY Cary Status:REG ER Location: ED ADDENDUM by Dr. Arpan Garcia MD on 10/26/24 at 0837 Repeat exam around 8:30 AM. Patient doing well. Exam is unchanged. She is more relaxed. Her significant other is currently at bedside. I went over her test results with her. She is currently discharged home. She did want some Zofran for nausea prior to discharge which we will give her. She can hold her ivermectin. And follow-up with her primary care physician. 10/26/24 0837 Cosigner Signature (if applicable): cc: PLATFORM MATERIAL HANDLER MANAGERRadha Aguilar * Signed ADDENDUM by Dr. Arpan Garcia MD on 10/26/24 at 0805 49-year-old female turned over to me from the overnight physician. Patient has a complex medical history and is on multiple meds for pain. She presented this morning concern for possible allergic reaction. She has no signs of that currently. No signs of anaphylaxis. Her vital signs are stable and afebrile. Her physical exam is benign. Initial blood pressure was 164/90. She does not look septic or toxic. She is anxious and has rapid speech. HEENT exam moist mucous membranes. She has previously shaven her head. Lungs are clear. Heart regular rhythm no murmur rate about 90. Chest wall and ribs are nontender. Abdomen soft nontender. Moving all 4 extremities. Normal strength. Skin normal. No rashes. No hives. No cellulitis. Back nontender. Neurologically she is awake and alert. Answering questions following commands. The prior physician did a workup. Her CBC is unremarkable. Chemistries are currently pending which I will check prior to discharge. EKG was a sinus rhythm rate 87 with no acute abnormalities unchanged from a prior. Her UA was normal. I feel that this patient is most likely suffering from anxiety. And at least at this time there is no signs of an allergic reaction. It could be a side effect because she is on 10-15 or more medications. She will be observed and eventually discharged to home with outpatient follow-up. Impression: 1. 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 Patient states that she came to the emergency department as she is concerned that she is having a reaction to the medications she has been given. She states that she developed this her condition and had been seen multiple doctors for this and states that she and doctors overall have not had much success therefore she follows up with a different type of provider usually. Patient notes that she tried topical ivermectin and now has been on oral ivermectin she states that she is on it for a period time and then off for a week. States that she just completed the off portion and noted that she took double the dose that she normally supposed to take per the recommendation of the provider that is prescribing this. Patient also notes that she was referred to a compounding pharmacy and was given naltrexone which she took 0.25 mL of this. She states that she took it 2 days prior and yesterday and then today. She notes that after tonight's dose with the ivermectin she felt off and did not feel her normal self therefore she was panicking and came here as she was concerned that she was having allergic reaction. [facility] Medical History Fear of travel with panic attacks Tachycardia Fatigue Vitamin D deficiency Anxiety Fluctuating blood pressure Intermittent palpitations SOB (shortness of breath) Abnormal finding on thyroid function test Dyspareunia Urge incontinence Urinary tract infection Hypertension Neck pain Back pain Insomnia Home Medications ???Medication ???Instructions ???Recorded ???Last Taken ???Type tramadol 50 mg tablet 50 mg PO DAILY 02/28/19 Unknown Hi story clonazepam 0.5 mg tablet 0.5 mg PO QHS 09/10/22 10/26/24 Hi story metoprolol succinate 25 mg 25 mg PO BID 09/10/22 Unknown Hist ory tablet,extended release 24 hr cyclobenzaprine 10 mg tablet 10 mg PO TID 10/26/24 Unknown Hist ory gabapentin 100 mg capsule 100 - 200 mg PO DAILY PRN pain Unknown History Allergy/AdvReac Type Severity Reaction Status Date / Time Quinolones Allergy Hives Verified 11/30/23 08:42 S (more content not included)... Normal [facility] Eosinophil percentageOrdered By: Ramesh Coffey on 10-26-2024 Eosinophils/100 WBC (Bld) 0.3 % 0-5 [facility] Erythrocyte distribution wid th ratioOrdered By: Ramesh Coffey on 10-26-2024 Erythrocyte distribution width (RBC) [Ratio] 12.2 % 11.6-14.6 [facility] Erythrocyte distribution wid th standard deviationOrdered By: Ramesh Coffey on 10-26-2024 Erythrocyte distribution width (RBC) [Ratio] 41.5 fl 35.1-43.9 [facility] Glomerular filtration rate ( GFR) estimation/1.73 sq m using serum, plasma, or whole bOrdered By: Ramesh Coffey on 10-26-2024 GFR/1.73 sq M.predicted among non-blacks MDRD (S/P/Bld) [Vol rate/Area] 105 mL/min/{1.73_m2} >60 [facility] Comment on above: mL/min/1.73m2 CKD-EP I Creatinine Equation (2020) Hematocrit Auto (Bld) [Volum e fraction]Ordered By: Ramesh Coffey on 10-26-2024 Hematocrit (Bld) [Volume fraction] 37.3 % 37-47 [facility] Hemoglobin measurementOrdere d By: Ramesh Coffey on 10-26-2024 Hemoglobin (Bld) [Mass/Vol] 13.0 g/dL 12.0-15.0 [facility] Immature granulocytes/100 WB C Auto (Bld)Ordered By: Rameshnato Coffey on 10-26-2024 Immature granulocytes/100 WBC (Bld) 0.500 % 0.0-0.9 [facility] Comment on above: IG% - Immature Granu locytes (promyelocytes, myelocytes and metamyelocytes) > 1% indicates that a LEFT SHIFT is Present. Ketones Test strip Ql (U)Ord ered By: Ramesh Coffey on 10-26-2024 Ketones Ql (U) 15 mg/dl High Negative [facility] L499.0042on 10-26-2024 Trop T High Sen Normal <=14 [facility] Comment on above: Result Comment: Kimberlee franklin via OM: Ordered Performed By: #### L 400.0001 #### [facility] [address] [place], [address] L499.0043on 10-26-2024 Trop T High Sen Normal <=14 [facility] Comment on above: Result Comment: Kimberlee franklin via OM: Ordered Performed By: #### L 499.0043 ####[facility] [address] [place], [address] L501.4021on 10-26-2024 Trop T High Sen 7 ng/L Normal <=14 [facility] Comment on above: Performed By: #### L 100.0100, L501.2450, L500.4050, L501.4021 #### [facility] [address] [place], [place], [address] Laboratory - Chemistry and C hemistry - challengeOrdered By: Ramesh Coffey on 10-26-2024 AST [Catalytic activity/Vol] 36 U/L High <32 [facility] Lipaseon 10-26-2024 Lipase [Catalytic activity/Vol] 28 U/L Normal 13-75 [facility] Comment on above: Result Comment: Cynthia palacios note: LIPASE revised reference range effective 22. New Lipase methodology. Expected to produce lower values than the previous assay method. NEW Reference Range: 13 - 75 U/L Performed By: #### L 100.0100, L501.2450, L500.4050, L501.4021 #### [facility] [address] [place], [place], [address] Lipase measurementOrdered By : Ramesh Coffey on 10-26-2024 Lipase [Catalytic activity/Vol] 28 U/L 13-75 [facility] Comment on above: Please note:LIPASE r evised reference range effective 22. New Lipase methodology. Expected to produce lower values than the previous assay method. NEW Reference Range: 13 - 75 U/L MCV (mean corpuscular volume ) determinationOrdered By: Ramesh Coffey on 10-26-2024 MCV (RBC) [Entitic vol] 92.3 fL 81-99 [facility] Mean corpuscular hemoglobin (MCH) determinationOrdered By: Ramesh Coffey on 10-26-2024 MCH (RBC) [Entitic mass] 32.2 pg High 27.0-32.0 [facility] Mean corpuscular hemoglobin concentration (MCHC) determinationOrdered By: Ramesh Coffey on 10-26-2024 MCHC (RBC) [Mass/Vol] 34.9 g/dL 32-36 [facility] Mean platelet volume determi nationOrdered By: Ramesh Coffey on 10-26-2024 Platelet mean volume (Bld) [Entitic vol] 9.6 fL 6.2-12.0 [facility] Microscopic analysis of urin e for red blood cells (RBC)Ordered By: Ramesh Coffey on 10-26-2024 Microscopic analysis of urine for red blood cells (RBC) 0 SEEN /hpf 0-5 [facility] Monocyte percentageOrdered B y: Ramesh Coffey on 10-26-2024 Monocytes/100 WBC (Bld) 8.5 % 0-10 [facility] Mucus LM Ql (Urine sed)Order ed By: Ramesh Coffey on 10-26-2024 Mucus Ql (Urine sed) 0 SEEN /hpf [facility] Neutrophil percentageOrdered By: Ramesh Coffey on 10-26-2024 Neutrophils/100 WBC (Bld) 70.5 % High 47-70 [facility] Nitrite Test strip Ql (U)Ord ered By: Ramesh Coffey on 10-26-2024 Nitrite Ql (U) Negative Negative [facility] Nucleated red blood cell per centageOrdered By: Ramesh Coffey on 10-26-2024 Nucleated RBC/100 WBC (Bld) [Ratio] 0 % 0-5 [facility] Platelet countOrdered By: Ron Coffey on 10-26-2024 Platelets (Bld) [#/Vol] 302 10*3/uL 150-450 [facility] Potassium measurement (mass/ volume)Ordered By: Ramesh Coffey on 10-26-2024 Potassium (Unsp spec) [Mass/Vol] 4.1 mmol/L 3.3-5.1 [facility] Protein Test strip Ql (U)Ord ered By: Ramesh Coffey on 10-26-2024 Protein Ql (U) Negative Negative [facility] RBC Auto (Bld) [#/Vol]Ordere d By: Ramesh Coffey on 10-26-2024 RBC (Bld) [#/Vol] 4.04 10*6/uL Low 4.2-5.4 [facility] Serum creatinine measurement (mass/volume)Ordered By: Ramesh Coffey on 10-26-2024 Creatinine [Mass/Vol] 0.70 mg/dL 0.70-1.20 [facility] Serum globulin measurementOr dered By: Ramesh Coffey on 10-26-2024 Globulin (S) [Mass/Vol] 2.8 g/dL 2.2-4.2 [facility] Serum glucose measurement (m ass/volume)Ordered By: Ramesh Coffey on 10-26-2024 Glucose [Mass/Vol] 123 mg/dL High 70-99 [facility] Serum or plasma alanine kirk otransferase (ALT) measurementOrdered By: Ramesh Coffey on 10-26-2024 ALT [Catalytic activity/Vol] 49 U/L High <35 [facility] Serum or plasma albumin herberth urement (mass/volume)Ordered By: Ramesh Coffey on 10-26-2024 Albumin [Mass/Vol] 4.6 g/dL 3.5-5.0 [facility] Serum or plasma albumin/glob ulin mass ratioOrdered By: Ramesh Coffey on 10-26-2024 Albumin/Globulin [Mass ratio] 1.6 {ratio} 0.9-2.4 [facility] Serum or plasma alkaline joseph sphatase measurementOrdered By: Ramesh Coffey on 10-26-2024 ALP [Catalytic activity/Vol] 68 U/L 35-104 [facility] Serum or plasma calcium herberth urement (mass/volume)Ordered By: Ramesh Coffey on 10-26-2024 Calcium [Mass/Vol] 9.7 mg/dL 7.6-11.0 [facility] Serum or plasma urea nitroge n measurement (mass/volume)Ordered By: Ramehs Coffey on 10-26-2024 Urea nitrogen [Mass/Vol] 9 mg/dL 4-19 [facility] Sodium levelOrdered By: Dinesh Coffey on 10-26-2024 Sodium [Moles/Vol] 139 mmol/L 133-145 [facility] Squamous epithelial cells de tection in urine sediment by light microscopyOrdered By: Ramesh Coffey on 10-26-2024 Epithelial cells.squamous LM Ql (Urine sed) 5-10 SEEN /hpf 5-10 [facility] Total proteinOrdered By: Franklin Coffey on 10-26-2024 Protein [Mass/Vol] 7.4 g/dL 5.9-8.4 [facility] Troponin T.cardiac [Mass/vol ume] in Serum or Plasma by High sensitivity methodOrdered By: Ramesh Coffey on 10-26-2024 Troponin T.cardiac High sensitivity method [Mass/Vol] 7 ng/L <14 [facility] Urinalysis, Completeon 05-23 -2025 BACTERIA 2+ /hpf Normal None Seen [facility] Comment on above: Order Comment: CLEAN CATCH Performed By: #### L 400.0001 #### [facility] [address] [place], [address] EPI,SQUAMOUS 5-10 SEEN Normal 5-10 [facility] Comment on above: Order Comment: CLEAN CATCH Performed By: #### L 400.0001 #### [facility] [address] [place], [address] WBC 0-5 SEEN Normal 0-5 [facility] Comment on above: Order Comment: CLEAN CATCH Performed By: #### L 400.0001 #### [facility] [address] [place], [address] BILIRUBIN URINE Negative Normal Negative [facility] Comment on above: Order Comment: CLEAN CATCH Performed By: #### L 400.0001 #### [facility] [address] [place], [address] Clarity (U) Turbid Normal Clear [facility] Comment on above: Order Comment: CLEAN CATCH Performed By: #### L 400.0001 #### [facility] [address] [place], [address] Color (U) Straw Normal Yellow [facility] Comment on above: Order Comment: CLEAN CATCH Performed By: #### L 400.0001 #### [facility] [address] [place], [address] GLUCOSE, UR Normal Normal Normal [facility] Comment on above: Order Comment: CLEAN CATCH Performed By: #### L 400.0001 #### [facility] [address] [place], [address] KETONE UR 15 mg/dl Abnormal Negative [facility] Comment on above: Order Comment: CLEAN CATCH Performed By: #### L 400.0001 #### [facility] [address] [place], [address] LEUK ESTERASE Negative Normal Negative [facility] Comment on above: Order Comment: CLEAN CATCH Performed By: #### L 400.0001 #### [facility] [address] [place], [address] Nitrite Ql (U) Negative Normal Negative [facility] Comment on above: Order Comment: CLEAN CATCH Performed By: #### L 400.0001 #### [facility] [address] [place], [address] OCCULT BLOOD-UR Negative Normal Negative [facility] Comment on above: Order Comment: CLEAN CATCH Performed By: #### L 400.0001 #### [facility] [address] [place], [address] pH UR 6.5 Normal 5.0 - 8.0 [facility] Comment on above: Order Comment: CLEAN CATCH Performed By: #### L 400.0001 #### [facility] [address] [place], [place], [facility] PROT DIPSTX Negative Normal Negative [facility] Comment on above: Order Comment: CLEAN CATCH Performed By: #### L 400.0001 #### [facility] [address] [place], [address] SP.GR. DIPSTX 1.010 Normal 1.002-1.030 [facility] Comment on above: Order Comment: CLEAN CATCH Performed By: #### L 400.0001 #### [facility] [address] [place] [address] UROBILI Normal Normal Normal [facility] Comment on above: Order Comment: CLEAN CATCH Performed By: #### L 400.0001 #### [facility] [address] [place], [address] Mucus Ql (Urine sed) 0 SEEN Normal [facility] Comment on above: Order Comment: CLEAN CATCH Performed By: #### L 400.0001 #### [facility] [address] [place], [place], [address] RBC 0 SEEN Normal 0-5 [facility] Comment on above: Order Comment: CLEAN CATCH Performed By: #### L 400.0001 #### [facility] [address] [place], [place], [address] Urine clarityOrdered By: Franklin Coffey on 10-26-2024 Clarity (U) Turbid Clear [facility] Urine color determinationOrd ered By: Ramesh Coffey on 10-26-2024 Color (U) Straw Yellow [facility] Urine glucose detectionOrder ed By: Ramesh Coffey on 10-26-2024 Glucose Ql (U) Normal mg/dl Normal [facility] Urine leukocyte esterase det ection by dipstickOrdered By: Ramesh Coffey on 10-26-2024 Leukocyte esterase Test strip Ql (U) Negative Negative [facility] Urine pHOrdered By: Ramesh mendieta on 10-26-2024 pH (U) 6.5 [pH] 5.0 - 8.0 [facility] Urine sediment bacteria coun t by microscopy (number/high power field)Ordered By: Ramesh Coffey on 10-26-2024 Bacteria LM.HPF (Urine sed) [#/Area] 2 /[HPF] None Seen [facility] Urine specific gravity measu rementOrdered By: Ramesh Coffey on 10-26-2024 Specific gravity (U) [Rel density] 1.010 1.002-1.030 [facility] Urine urobilinogen measureme ntOrdered By: Ramesh Coffey on 10-26-2024 Urobilinogen Ql (U) Normal mg/dl Normal [facility] White blood cell (WBC) count Ordered By: Ramesh Coffey on 10-26-2024 WBC (Bld) [#/Vol] 7.7 10*3/uL 4.4-11.0 [facility] White blood cell countOrdere d By: Ramesh Coffey on 10-26-2024 White blood cell count 0-5 SEEN /hpf 0-5 [facility] Absolute lymphocyte countOrd ered By: Elinor Aguilar on 09-06-2024 Lymphocytes Auto (Unsp spec) [#/Vol] 2.17 10*3/uL 0.83-4.51 [facility] Absolute neutrophil countOrd ered By: Elinor Aguilar on 09-06-2024 Neutrophils (Bld) [#/Vol] 4.7 10*3/uL 2.0-7.7 [facility] Anion gap in Serum or Plasma Ordered By: Elinor Aguilar on 09-06-2024 Anion gap [Moles/Vol] 10 mmol/L 5-15 [facility] Automated lymphocyte count a s percentage of total leukocytesOrdered By: Elinor Aguilar on 09-06-2024 Lymphocytes/100 WBC Auto (Unsp spec) 28.3 % 19-41 [facility] BUN/creatinine ratioOrdered By: Elinor Aguilar on 09-06-2024 Urea nitrogen/Creatinine [Mass ratio] 12.4 mg/mg 10-20 [facility] Basophil percentageOrdered B y: Elinor Aguilar on 09-06-2024 Basophils/100 WBC (Bld) 0.8 % 0-1 [facility] Bilirubin, totalOrdered By: Elinor Aguilar on 09-06-2024 Bilirubin [Mass/Vol] 0.27 mg/dL 0.00-1.[address] [facility] CBC W/Diff, Automatedon Absolute Lymph 2.17 X10 3/uL Normal 0.83-4.51 [facility] Comment on above: Performed By: #### L 500.4050, L100.0100 #### [facility] [address] [place], [address] Absolute Neut 4.7 X10 3/uL Normal 2.0-7.7 [facility] Comment on above: Performed By: #### L 500.4050, L100.0100 #### [facility] [address] [place], [address] Basophils/100 WBC (Bld) 0.8 % Normal 0-1 [facility] Comment on above: Performed By: #### L 500.4050, L100.0100 #### [facility] [address] [place], [address] Eosinophils/100 WBC (Bld) 0.8 % Normal 0-5 [facility] Comment on above: Performed By: #### L 500.4050, L100.0100 #### [facility] [address] [place], [address] Erythrocyte distribution width (RBC) [Ratio] 12.6 % Normal 11.6-14.6 [facility] Comment on above: Performed By: #### L 500.4050, L100.0100 #### [facility] [address] [place], [address] Hematocrit (Bld) [Volume fraction] 38.1 % Normal 37-47 [facility] Comment on above: Performed By: #### L 500.4050, L100.0100 #### [facility] [address] [place], [address] Hemoglobin (Bld) [Mass/Vol] 12.6 g/dL Normal 12.0-15.0 [facility] Comment on above: Performed By: #### L 500.4050, L100.0100 #### [facility] [address] [place], [address] IG% 0.400 Normal 0.0-0.9 [facility] Comment on above: Result Comment: IG% - Immature Granulocytes (promyelocytes, myelocytes and metamyelocytes) > 1% indicates that a LEFT SHIFT is Present. Performed By: #### L 500.4050, L100.0100 #### [facility] [address] [place], [address] Lymphocytes/100 WBC (Bld) 28.3 % Normal 19-41 [facility] Comment on above: Performed By: #### L 500.4050, L100.0100 #### [facility] [address] [place], [address] MCH (RBC) [Entitic mass] 31.3 pg Normal 27.0-32.0 [facility] Comment on above: Performed By: #### L 500.4050, L100.0100 #### [facility] [address] [place], [address] MCHC (RBC) [Mass/Vol] 33.1 g/dL Normal 32-36 [facility] Comment on above: Performed By: #### L 500.4050, L100.0100 #### [facility] [address] [place], [address] MCV (RBC) [Entitic vol] 94.5 fL Normal 81-99 [facility] Comment on above: Performed By: #### L 500.4050, L100.0100 #### [facility] [address] [place], [address] Monocytes/100 WBC (Bld) 8.5 % Normal 0-10 [facility] Comment on above: Performed By: #### L 500.4050, L100.0100 #### [facility] [address] [place], [address] Neutrophils/100 WBC (Bld) 61.2 % Normal 47-70 [facility] Comment on above: Performed By: #### L 500.4050, L100.0100 #### [facility] [address] [place], [address] Nucleated RBC (Bld) [#/Vol] 0 10*3/uL Normal 0-5 [facility] Comment on above: Performed By: #### L 500.4050, L100.0100 #### [facility] [address] [place], [address] Platelet mean volume (Bld) [Entitic vol] 10.2 fL Normal 6.2-12.0 [facility] Comment on above: Performed By: #### L 500.4050, L100.0100 #### [facility] [address] [place], [address] Platelets (Bld) [#/Vol] 325 10*3/uL Normal 150-450 [facility] Comment on above: Performed By: #### L 500.4050, L100.0100 #### [facility] [address] [place], [address] RBC (Bld) [#/Vol] 4.03 10*6/uL Low 4.2-5.4 [facility] Comment on above: Performed By: #### L 500.4050, L100.0100 #### [facility] [address] [place], [address] RDW SD 43.8 fl Normal 35.1-43.9 [facility] Comment on above: Performed By: #### L 500.4050, L100.0100 #### [facility] [address] [place], [address] WBC (Bld) [#/Vol] 7.7 10*3/uL Normal 4.4-11.0 [facility] Comment on above: Performed By: #### L 500.4050, L100.0100 #### [facility] [address] [place], [address] Carbon dioxide, total [Moles /volume] in Central venous bloodOrdered By: Elinor Aguilar on 09-06-2024 CO2 [Moles/Vol] 26.6 mmol/L 21.0-32.0 [facility] Chloride assayOrdered By: Ayden Aguilar on 09-06-2024 Chloride [Moles/Vol] 104 mmol/L 98-[address] [facility] Comprehensive Metabolic Prof ilon 09-06-2024 Albumin [Mass/Vol] 4.6 g/dL Normal 3.5-5.0 [facility] Comment on above: Performed By: #### L 500.4050, L100.0100 #### [facility] [address] [place], [address] Albumin/Globulin [Mass ratio] 2.0 {ratio} Normal 0.9-2.4 [facility] Comment on above: Performed By: #### L 500.4050, L100.0100 #### [facility] [address] [place], [address] ALK PHOS 75 U/L Normal 35-104 [facility] Comment on above: Performed By: #### L 500.4050, L100.0100 #### [facility] [address] [place], [address] ALT [Catalytic activity/Vol] 25 U/L Normal <=34 [facility] Comment on above: Performed By: #### L 500.4050, L100.0100 #### [facility] [address] [place], [address] AST [Catalytic activity/Vol] 18 U/L Normal <=31 [facility] Comment on above: Performed By: #### L 500.4050, L100.0100 #### [facility] [address] [place], [address] Bilirubin [Mass/Vol] 0.27 mg/dL Normal 0.00-1.[address] [facility] Comment on above: Performed By: #### L 500.4050, L100.0100 #### [facility] [address] [place], [address] BUN/CRE 12.4 RATIO Normal 10-20 [facility] Comment on above: Performed By: #### L 500.4050, L100.0100 #### [facility] [address] [place], [address] Calcium [Mass/Vol] 9.9 mg/dL Normal 7.6-11.0 [facility] Comment on above: Performed By: #### L 500.4050, L100.0100 #### [facility] [address] [place], [address] Chloride [Moles/Vol] 104 mmol/L Normal 98-[address] [facility] Comment on above: Performed By: #### L 500.4050, L100.0100 #### [facility] [address] [place], [address] CO2 [Moles/Vol] 26.6 mmol/L Normal 21.0-32.0 [facility] Comment on above: Performed By: #### L 500.4050, L100.0100 #### [facility] [address] [place], [address] Creatinine [Mass/Vol] 0.68 mg/dL Low 0.70-1.20 [facility] Comment on above: Performed By: #### L 500.4050, L100.0100 #### [facility] [address] [place], [address] GAP 10 Normal 5-15 [facility] Comment on above: Performed By: #### L 500.4050, L100.0100 #### [facility] [address] [place], [address] GFR/1.73 sq M.predicted among non-blacks MDRD (S/P/Bld) [Vol rate/Area] 106 mL/min/{1.73_m2} Normal >60 [facility] Comment on above: Result Comment: mL/m in/1.73m2 CKD-EPI Creatinine Equation (2020) Performed By: #### L 500.4050, L100.0100 #### [facility] [address] [place], [address] Globulin (S) [Mass/Vol] 2.3 g/dL Normal 2.2-4.2 [facility] Comment on above: Performed By: #### L 500.4050, L100.0100 #### [facility] [address] [place], [address] Glucose [Mass/Vol] 103 mg/dL High 70-99 [facility] Comment on above: Performed By: #### L 500.4050, L100.0100 #### [facility] [address] [place], [address] Potassium [Moles/Vol] 4.4 mmol/L Normal 3.3-5.1 [facility] Comment on above: Performed By: #### L 500.4050, L100.0100 #### [facility] [address] [place], [address] Sodium [Moles/Vol] 141 mmol/L Normal 133-145 [facility] Comment on above: Performed By: #### L 500.4050, L100.0100 #### [facility] [address] [place], [address] T PROT 6.9 g/dL Normal 5.9-8.4 [facility] Comment on above: Performed By: #### L 500.4050, L100.0100 #### [facility] [address] [place], [address] Urea nitrogen [Mass/Vol] 8 mg/dL Normal 4-19 [facility] Comment on above: Performed By: #### L 500.4050, L100.0100 #### [facility] [address] [place], [address] Eosinophil percentageOrdered By: Elinor Aguilar on 09-06-2024 Eosinophils/100 WBC (Bld) 0.8 % 0-5 [facility] Erythrocyte distribution wid th (RBC) [Ratio]Ordered By: Elinor Aguilar on 09-06-2024 Erythrocyte distribution width (RBC) [Entitic vol] 43.8 fL 35.1-43.9 [facility] Erythrocyte distribution wid th ratioOrdered By: Elinor Aguilar on 09-06-2024 Erythrocyte distribution width (RBC) [Ratio] 12.6 % 11.6-14.6 [facility] Erythrocyte distribution wid th standard deviationOrdered By: Elinor Aguilar on 09-06-2024 Erythrocyte distribution width (RBC) [Ratio] 43.8 fl 35.1-43.9 [facility] GFR/1.73 sq M.predicted natan g non-blacks MDRD (S/P/Bld) [Vol rate/Area]Ordered By: Elinor Aguilar on 09-06-2024 Estimated GFR (MDRD) Non-Af Amer 106 >60 [facility] Comment on above: mL/min/1.73m2 CKD-EP I Creatinine Equation (2020) Glomerular filtration rate ( GFR) estimation/1.73 sq m using serum, plasma, or whole bOrdered By: Elinor Aguilar on 09-06-2024 GFR/1.73 sq M.predicted among non-blacks MDRD (S/P/Bld) [Vol rate/Area] 106 mL/min/{1.73_m2} >60 [facility] Comment on above: mL/min/1.73m2 CKD-EP I Creatinine Equation (2020) Hematocrit Auto (Bld) [Volum e fraction]Ordered By: Elinor Aguilar on 09-06-2024 Hematocrit (Bld) [Volume fraction] 38.1 % 37-47 [facility] Hemoglobin measurementOrdere d By: Elinor Aguilar on 09-06-2024 Hemoglobin (Bld) [Mass/Vol] 12.6 g/dL 12.0-15.0 [facility] Immature granulocytes/100 WB C Auto (Bld)Ordered By: Elinor Aguilar on 09-06-2024 Immature granulocytes/100 WBC (Bld) 0.400 % 0.0-0.9 [facility] Comment on above: IG% - Immature Granu locytes (promyelocytes, myelocytes and metamyelocytes) > 1% indicates that a LEFT SHIFT is Present. Laboratory - Chemistry and C hemistry - challengeOrdered By: Elinor Aguilar on 09-06-2024 AST [Catalytic activity/Vol] 18 U/L <32 [facility] Lymphocytes Auto (Unsp spec) [#/Vol]Ordered By: Elinor Aguilar on 09-06-2024 Lymphocytes (Bld) [#/Vol] 2.17 10*3/uL 0.83-4.51 [facility] Lymphocytes/100 WBC Auto (Un sp spec)Ordered By: Elinor Aguilar on 09-06-2024 Lymphocytes/100 WBC (Bld) 28.3 % 19-41 [facility] MCV (mean corpuscular volume ) determinationOrdered By: Elinor Aguilar on 09-06-2024 MCV (RBC) [Entitic vol] 94.5 fL 81-99 [facility] Mean corpuscular hemoglobin (MCH) determinationOrdered By: Elinor Aguilar on 09-06-2024 MCH (RBC) [Entitic mass] 31.3 pg 27.0-32.0 [facility] Mean corpuscular hemoglobin concentration (MCHC) determinationOrdered By: Elinor Aguilar on 09-06-2024 MCHC (RBC) [Mass/Vol] 33.1 g/dL 32-36 [facility] Mean platelet volume determi nationOrdered By: Elinor Aguilar on 09-06-2024 Platelet mean volume (Bld) [Entitic vol] 10.2 fL 6.2-12.0 [facility] Monocyte percentageOrdered B y: Elinor Aguilar on 09-06-2024 Monocytes/100 WBC (Bld) 8.5 % 0-10 [facility] Neutrophil percentageOrdered By: Elinor Aguilar on 09-06-2024 Neutrophils/100 WBC (Bld) 61.2 % 47-70 [facility] Nucleated red blood cell per centageOrdered By: Elinor Aguilar on 09-06-2024 Nucleated RBC/100 WBC (Bld) [Ratio] 0 % 0-5 [facility] Platelet countOrdered By: Ayden Aguilar on 09-06-2024 Platelets (Bld) [#/Vol] 325 10*3/uL 150-450 [facility] Potassium (Unsp spec) [Mass/ Vol]Ordered By: Elinor Aguilar on 09-06-2024 Potassium [Moles/Vol] 4.4 mmol/L 3.3-5.1 [facility] Potassium measurement (mass/ volume)Ordered By: Elinor Aguilar on 09-06-2024 Potassium (Unsp spec) [Mass/Vol] 4.4 mmol/L 3.3-5.1 [facility] RBC Auto (Bld) [#/Vol]Ordere d By: Elinor Aguilar on 09-06-2024 RBC (Bld) [#/Vol] 4.03 10*6/uL Low 4.2-5.4 [facility] Serum creatinine measurement (mass/volume)Ordered By: Elinor Aguilar on 09-06-2024 Creatinine [Mass/Vol] 0.68 mg/dL Low 0.70-1.20 [facility] Serum globulin measurementOr dered By: lEinor Aguilar on 09-06-2024 Globulin (S) [Mass/Vol] 2.3 g/dL 2.2-4.2 [facility] Serum glucose measurement (m ass/volume)Ordered By: Elinor Aguilar on 09-06-2024 Glucose [Mass/Vol] 103 mg/dL High 70-99 [facility] Serum or plasma alanine kirk otransferase (ALT) measurementOrdered By: Elinor Aguilar on 09-06-2024 ALT [Catalytic activity/Vol] 25 U/L <35 [facility] Serum or plasma albumin herberth urement (mass/volume)Ordered By: Elinor Aguilar on 09-06-2024 Albumin [Mass/Vol] 4.6 g/dL 3.5-5.0 [facility] Serum or plasma albumin/glob ulin mass ratioOrdered By: Elinor Aguilar on 09-06-2024 Albumin/Globulin [Mass ratio] 2.0 {ratio} 0.9-2.4 [facility] Serum or plasma alkaline joseph sphatase measurementOrdered By: Elinor Aguilar on 09-06-2024 ALP [Catalytic activity/Vol] 75 U/L 35-104 [facility] Serum or plasma calcium herberth urement (mass/volume)Ordered By: Elinor Aguilar on 09-06-2024 Calcium [Mass/Vol] 9.9 mg/dL 7.6-11.0 [facility] Serum or plasma urea nitroge n measurement (mass/volume)Ordered By: Elinor Aguilar on 09-06-2024 Urea nitrogen [Mass/Vol] 8 mg/dL 4-19 [facility] Sodium levelOrdered By: Renny Aguilar on 09-06-2024 Sodium [Moles/Vol] 141 mmol/L 133-145 [facility] Total proteinOrdered By: Ruby Aguilar on 09-06-2024 Protein [Mass/Vol] 6.9 g/dL 5.9-8.4 [facility] White blood cell (WBC) count Ordered By: Elinor Glennjaxson on 09-06-2024 WBC (Bld) [#/Vol] 7.7 10*3/uL 4.4-11.0 [facility] PAP IG HPV APTIMA 16/18,45on 12-06-2023 ADEQ Comment Normal . [facility] Comment on above: Order Comment: Speci men Comment: [id number] Comment: Source.............Cervix;EndocervixSpecimen Comment: No. of containers..01 ThinPrep Vial Result Comment: Sati sfactory for evaluation. Endocervical and/or squamous metaplastic cells (endocervical component) are present. Performed By: #### L 7400.0280 ####[facility] [address] [place], [address] COMM . Normal . [facility] Comment on above: Order Comment: Speci men Comment: [id number] Comment: Source.............Cervix;EndocervixSpecimen Comment: No. of containers..01 ThinPrep Vial Performed By: #### L 7400.0280 ####[facility] [address] [place], [place], [id number] COMMENT Comment Normal . [facility] Comment on above: Order Comment: Speci men Comment: [id number] Comment: Source.............Cervix;EndocervixSpecimen Comment: No. of containers..01 ThinPrep Vial Result Comment: This liquid based ThinPrep(R) pap test was screened with the use of an image guided system. Performed By: #### L 7400.0280 ####[facility] [address] [place], [place], [id number] DIAG Comment Normal . [facility] Comment on above: Order Comment: Speci men Comment: [id number] Comment: Source.............Cervix;EndocervixSpecimen Comment: No. of containers..01 ThinPrep Vial Result Comment: NEGA TIVE FOR INTRAEPITHELIAL LESION OR MALIGNANCY. THIS SPECIMEN WAS RESCREENED PART OF OUR OFFSET PLATEMAKER PROGRAM. Performed By: #### L 7400.0280 ####[facility] [address] [place], [place], [address] HPV APTIMA, HR Negative Normal Negative [facility] Comment on above: Order Comment: Speci men Comment: [id number] Comment: Source.............Cervix;EndocervixSpecimen Comment: No. of containers..01 ThinPrep Vial Result Comment: This nucleic acid amplification test detects fourteen high- risk HPV types (16,18,31,33,35,39,45,51,52,56,58,59,66,68) without differentiation. Performed By: #### L 7400.0280 ####[facility] [address] [place], [place], [address] HPV Ginny Rfx Comment Normal . [facility] Comment on above: Order Comment: Speci men Comment: [id number] Comment: Source.............Cervix;EndocervixSpecimen Comment: No. of containers..01 ThinPrep Vial Result Comment: Crit eria not met, HPV Genotype not performed. Performed at: [address] [id number] Marketing Account Manager: Adilene Ravi MD, Phone: [phone] Performed at: =[address] [id number] Marketing Account Manager: Adilene Ravi MD, Phone: [phone] Performed By: #### L 7400.0280 ####[facility] [address] [place], [place], [id number] PAPSMR Comment Normal . [facility] Comment on above: Order Comment: Speci men Comment: [id number] Comment: Source.............Cervix;EndocervixSpecimen Comment: No. of containers..01 ThinPrep Vial Result Comment: The Pap smear is a screening test designed to aid in the detection of premalignant and malignant conditions of the uterine cervix. It is not a diagnostic procedure and should not be used as the sole means of detecting cervical cancer. Both false-positive and false-negative reports do occur. Performed By: #### L 7400.0280 ####[facility] [address] [place], [place], [id number] PERFORM Comment Normal . [facility] Comment on above: Order Comment: Speci men Comment: [id number] Comment: Source.............Cervix;EndocervixSpecimen Comment: No. of containers..01 ThinPrep Vial Result Comment: Jaye Collado, Director Business Intelligence (ASCP) Performed By: #### L 7400.0280 ####[facility] [address] [place], [place], [address] QC REV Comment Normal . [facility] Comment on above: Order Comment: Speci men Comment: [id number] Comment: Source.............Cervix;EndocervixSpecimen Comment: No. of containers..01 ThinPrep Vial Result Comment: Tosin Valdovinos, Director Business Intelligence Performed By: #### L [phone] ####[facility] [address] [place], [address] Fitting Room Operator Office Visit Reporton 11-30-2023 Fitting Room Operator Office Visit Report [facility] 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 Is patient in pain?: No Allergies Quinolones Allergy (Verified 11/30/23 08:42) Hives Sulfa (Sulfonamide Antibiotics) Allergy (Verified 11/30/23 08:42) Hives azithromycin (From Zithromax Z-Boubacar) Adverse Reaction (Verified 11/30/23 08:42) Upset Stomach Medications ???Medication ???Instructions ???Recorded ???Confirmed ???Type tramadol 50 mg tablet 50 mg PO DAILY 02/28/19 11/30/23 History aspirin 81 mg tablet,delayed 162 mg PO DAILY 09/10/22 11/30/23 History release clonazepam 0.5 mg tablet 0.5 mg PO QHS 09/10/22 11/30/23 History metoprolol succinate 25 mg 25 mg PO BID 09/10/22 11/30/23 History tablet,extended release 24 hr quetiapine 25 mg tablet 12.5 mg PO QHS 09/10/22 11/30/23 History Is last menstrual period known: Yes Last Menstrual Period: 11/10/23 Post menopausal: No Patient : No : No Current gender identity: female Control Method: none PFSH Medical History Fear of travel with panic attacks Tachycardia Fatigue Vitamin D deficiency Anxiety Fluctuating blood pressure Intermittent palpitations SOB (shortness of breath) Abnormal finding on thyroid function test Dyspareunia Urge incontinence Urinary tract infection Hypertension Neck pain Back pain Insomnia Surgical History Status post glaucoma surgery S/P S/P sinus surgery s/p left shoulder surgery Family History Father Hypertension Yesica-Danlos syndrome Mother Breast cancer Hypertension Grandfather Heart disease Diabetes Hypertension CVA (cerebral vascular accident) Grandmother Hypertension Thyroid disorder Breast cancer CVA (cerebral vascular accident) Aunt Thyroid disorder CVA (cerebral vascular accident) Yesica-Danlos syndrome Social History current gender identity: female Smoking Status: Never smoker alcohol intake: current details: occasionally substance use type: does not use caffeine: Yes what type of physical activity do you participate in: walking frequency: 3-4 times per week duration: 15-30 minutes/day seatbelt use: always do you feel safe at home: Yes additional social history: Eyylvwf-Clrgf-Twwehierw tor 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 Date Name GA/Weeks Outcome Route Bth Weight Gen Labor Lgth Anesthesia Del Locatn Provider FOB 04/15/15 [place] 39 live - full term 7lbs ?oz Female spinal A keerthi Aguirre/Dr. Aragon Delivery Date: 04/15/15 Last Updated by: Kala Staley Gestational diabetes. Was induced due to maternal age. decels. Elevated blood pressure after delivery. HPI Encounter for routine gynecological examination Details: VERONICA UMAÑA is a 48 year old who presents for annual exam. She reports no issues or concerns; she reports that her cysts feel fine and have not changed. Last PAP: 2019; normal History of abnormal PAP: None Last mammogram: 2022 History of abnormal mammogram: yes; 16 yrs ago benign lump removed. Colon cancer screening: None; recommended. Other preventative health care screenings: Primary Care Provider: GARRET Francis. Female Reproductive History Last Menstrual Period: 11/10/23 Cycle Length: 21-35 Bleeding Duration: 6 Questions: metorrhagia: No, sexually active: Yes, dyspareunia: Yes and PCB: No ROS Const Constitutional: Denies chills, fatigue, fever(s), headache(s) or weight loss Eyes Eyes: Denies change in vision ENT ENT: Denies dizziness Resp Resp: Denies cough GI GI: Denies abdominal pain, constipation or nausea : Denies difficulty voiding, dysuria, hematuria, pelvic pain, prolapse symptoms, urinary incontinence, vaginal discharge, vaginal dryness, vaginal odor or vaginal pruritus Skin Skin/Breast: Denies alopecia or rash Neuro Neuro: Denies dizziness Psych Psych: Denies anxiety or depression Endo En (more content not included)... Normal [facility] 11-16-2023 [facility] Office Visit (UCWSTR ) VERONICA UMAÑA ([id number]) 1975 F Date Time Provider Department 11/16/23 9:15 AM LC MARIN [facility] During your visit today, we recorded the following information about you: Temperature Pulse Respiration Blood pressure 98.1 degrees 93/minute 18/minute 138/84 Weight 73 kg Lc Marin MD 11/16/2023 10:40 AM Signed Patient presents with: Eye Problem: Right eye swelling and right big toe pain-from pedicure yesterday HPI: Skin Lesion: Location: right great toe medial border Duration: had 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 Skin Lesion: Location: above the right eye Duration: woke with puffiness this morning, used topical ivermectin yesterday. Pruritis/Pain: no Drainage/blister/pustul e/ulceration: puffiness Treatment: none Lice: Location: scalp Duration: couple months Pruritis/Pain: pruritic Change: initially had a severe case with bites extending to her face. Various treatments have temporarily reduced pruritus. Drainage/blister/pustul e/ulceration: found a couple nymphs prompting appointment for treatment today, previously has kept the lice in a bag as evidence of infestation Treatment: permethrin, spinosad, coconut oil, olive oil, mineral oil, oral ivermectin, topical ivermectin, nit combing 2h/day, lice treatment specialists, dermatology, infectious disease refused to see her PAST MEDICAL HISTORY Diagnosis Date Chronic interstitial cystitis resolved Yesica-Danlos syndrome type III Miscarriage 4 Miscarriages Other forms of migraine resolved PTSD (post-traumatic stress disorder) Rosacea Unspecified hypothyroidism MEDICATIONS: Magnesium Citrate 150mg 90 ct[address] (Pure Encapsulations) Take 3 capsules daily. Magnesium Glycinate 120mg 3 at night Stress, blood sugar, thyroid/hormones/adrena ls/sleep/energy/toxins/ muscles/constipation/as thma Work up to 3 capsules with meals at night - can cause loose stools metoprolol succinate ER (TOPROL XL) 25 mg 24 hr tablet Take 50 mg by mouth once daily. traMADOL 50 mg ORAL Tab as necessary.Take one(1) tablet as needed acetaminophen (TYLENOL 8 HOUR ORAL) Take by mouth. aspirin 325 mg tablet Take 325 mg by mouth once daily. QUEtiapine 50 mg tablet Take 12 mg by mouth daily at bedtime. (Patient not taking: Reported on 11/16/2023) clonazepam (KLONOPIN) 0.5 mg ORAL Tab Take one(1) tablet daily ALLERGIES: ALLERGIES Allergen Reactions Cipro [Ciprofloxaci* Hives Cymbalta [Duloxetin* Intolerance Levoquin [Levofloxa* Hives All henry drugs Paba [P-Aminobenzoi* bumps all over my face Quinolones Hives Sulfa (Sulfonamide * Hives and pruritis Z Pack [Azithromyci* sharp abdominal pain VITALS: BP 138/84 Pulse 93 Temp 36.7 ?C (98.1 ?F) (Tympanic) Resp 18 Wt 73 kg (160 lb 15 oz) LMP 08/07/2022 (Approximate) SpO2 98% BMI 25.21 kg/m? PHYSICAL EXAM: GEN: pleasant, somewhat anxious but no acute distress, alert HEENT: PERRL, EOMI, trace edema between the upper eyelid and brow, MMM NECK: supple, no lymphadenopathy, no thyromegaly HEART: regular rate, regular rhythm, no murmurs LUNGS: clear to auscultation, no wheezes or crackles, no increased WOB EXT: no clubbing, no cyanosis, no edema. Mild erythema and edema medial nail fold of the right great toe with moistness between the nail and fold. Scalp: no erythema, ulceration, scale, nits, or live lice identified. ASSESSMENT/PLAN: 1. Paronychia of great toe of right foot - ICD9: 681.11, ICD10: L03.031 (primary diagnosis) She is leaving for her daughter's wedding soon and is concerned for worsening infection. Add - DOXYCYCLINE MONOHYDRATE 100 MG CAPSULE 2. Pediculosis capitis - ICD9: 132.0, ICD10: B85.0 No current signs of lice infestation but reports recent removal of a live louse. Continue nit combing. Discussed options for treatment - which she has already exhausted. Reviewed pruritus may persist despite eradication and should not be used as evidence of infestation. Follow up with primary care or specialist for repeat checks to confirm she remains free of live lice or nits. Lc Marin MD Allergies As of Date: 11/16/2023 Noted Allergy Reaction CIPRO (CIPROFLOXACIN) 03/02/2007 4 - Hives CYMBALTA (DULOXETINE) 05/16/2007 5 - Intolerance LEVOQUIN (LEVOFLOXACIN) 07/15/2014 4 - Hives Comments: All henry drugs PABA (P-AMINOBENZOIC ACID) 03/02/2007 Comments: bumps all over my face QUINOLONES 11/30/2021 4 - Hives SULFA (SULFONAMIDE ANTIBIOTICS) 03/02/2007 4 - Hives Comments: and pruritis Z PACK (AZITHROMYCIN) 03/02/2007 Comments: sharp abdominal pain Date Reviewed: 11/16/2023 Reviewed by: Jennifer Garza LPN - Fully Assessed Reason for Visit: Eye Problem (more content not included)... Normal [facility] Gram stain for investigation of transfusion reactionOrdered By: Charlette Tran on 10-06-2023 Microscopic observation Gram stain Nom (Unsp spec) [facility] No Panel InformationOrdered By: Charlette Tran on 10-06-2023 Genital Culture Neisseria or beta-hemolytic Streptococcus isolated. [facility] Basophil percentageOrdered B y: Natividad Yee on 03-22-2023 Bilirubin [Mass/Vol] 0.50 mg/dL 0.20-1.[address] [facility] Comment on above: For patients on eltr ombopag therapy, use of Dimension [place] TBIL is not recommended. Chloride [Moles/Vol] 104 mmol/L 98-[address] [facility] Glucose [Mass/Vol] 94 mg/dL 74-106 [facility] Potassium [Moles/Vol] 3.5 mmol/L 3.5-5.1 [facility] Protein [Mass/Vol] 7.1 g/dL 6.4-8.2 [facility] Sodium [Moles/Vol] 138 mmol/L 136-145 [facility] Laboratory - Chemistry and C hemistry - challengeOrdered By: Natividad [place] on 03-22-2023 ALP [Catalytic activity/Vol] 61 U/L 45-117 [facility] ALT [Catalytic activity/Vol] 21 U/L 13-56 [facility] CO2 [Moles/Vol] 29.0 mmol/L 21.0-32.0 [facility] Globulin (S) [Mass/Vol] 3.5 g/dL 2.2-4.2 [facility] Urea nitrogen/Creatinine [Mass ratio] 22.5 mg/mg 10-20 [facility] No Panel InformationOrdered By: Natividad [place] on 03-22-2023 Estimated GFR (MDRD) Amer 112 mL/min >60 [facility] Comment on above: GFR Calc Estimated GFR (MDRD) Non-Af Amer 93 mL/min >60 [facility] Comment on above: Non- GFR Calc Parathyroid Hormone (Intact) 48.8 pg/mL 18.4-80.1 [facility] Serum or plasma albumin herberth urement (mass/volume)Ordered By: Natividad Yee on 03-22-2023 Albumin [Mass/Vol] 3.6 g/dL 3.2-5.0 [facility] Serum or plasma albumin/glob ulin mass ratioOrdered By: Natividad [place] on 03-22-2023 Albumin/Globulin [Mass ratio] 1.0 {ratio} 0.9-2.4 [facility] Serum or plasma calcium herberth urement (mass/volume)Ordered By: Natividad [place] on 03-22-2023 Calcium [Mass/Vol] 9.3 mg/dL 8.5-10.1 [facility] Serum or plasma creatinine m easurement (mass/volume)Ordered By: [facility] on 03-22-2023 Creatinine [Mass/Vol] 0.71 mg/dL 0.55-1.02 [facility] Comment on above: The validity of the calculated GFR & GFRAA in patients over 70 years has not been determined. Clinical correlation is essential. Serum or plasma urea nitroge n measurement (mass/volume)Ordered By: Natividad [place] on 03-22-2023 Urea nitrogen [Mass/Vol] 16 mg/dL 7-18 [facility] Thin prep Papanicolaou smear with manual screeningOrdered By: Natividad [place] on 03-22-2023 Thin prep Papanicolaou smear with manual screening 9 U/L 15 [facility] Thin prep Papanicolaou smear with manual screening 5 5-15 [facility] Laboratory - Drug toxicology Ordered By: Dr. Layne on 08-17-2022 Amphetamines Ql (U) Negative <1000 ng/mL [facility] Benzodiazepines Ql (U) Negative < 200 ng/mL [facility] Cannabinoids Screen Ql (U) Negative < 50 ng/mL [facility] Cocaine Ql (U) Negative < 300 ng/mL [facility] Opiates Ql (U) Negative < 300 ng/mL [facility] No Panel InformationOrdered By: Dr. Layne on 08-17-2022 MDMA (Ecstasy) Screen Negative < 500 ng/mL [facility] Miscellaneous Test See comment [facility] Comment on above: TEST RESULTS LIMITST ramadol Tramadol Positive Rsezjy=[id number] Tramadol Conf, [place], [place] 2720 ng/mL Iqxopr=758 TESTING PERFORMED AT [facility]. ORIGINAL REPORT ON FILE IN LAB CONTAINS ADDITIONAL TEST SITE INFORMATION. Urine Barbiturates Screen Negative < 200 ng/mL [facility] Urine Drug Screen Comment [facility] Comment on above: CONFIRMATORY TESTING FOR ALL POSITIVE URINE DRUG SCREENRESULTS WILL ONLY BE SENT OUT UPON PHYSICIAN ORDER. VISTA Urine Drug Screen methods provide only preliminaryanalytical test results. A more specific alternate chemicalmethod must be used in order to obtain a confirmedanalytical result. Gas chromatography/mass spectrometery(GC/MS) is the preferred confirmatory method. Clinicalconsideration and professional judgement should be appliedto any drug of abuse test result, particularly whenpreliminary positive results are used. URINE TCA TESTING MUST BE ORDERED SEPARATELY. USE TESTMNEMONIC: [facility] Urine Methadone Screen Negative < 300 ng/mL [facility] Urine phencyclidine (PCP) de tectionOrdered By: Dr. Layne on 08-17-2022 Phencyclidine Ql (U) Negative < 25 ng/mL [facility] EMG(NEURO/NI)on 08-05-2022 [facility] - Drug toxicology Ordered By: Dr. Layne on 07-20-2022 Amphetamines Ql (U) Negative <1000 ng/mL [facility] Benzodiazepines Ql (U) Negative < 200 ng/mL [facility] Cannabinoids Screen Ql (U) Negative < 50 ng/mL [facility] Cocaine Ql (U) Negative < 300 ng/mL [facility] Opiates Ql (U) Negative < 300 ng/mL [facility] No Panel InformationOrdered By: Dr. Layne on 07-20-2022 MDMA (Ecstasy) Screen Negative < 500 ng/mL [facility] Miscellaneous Test See comment [facility] Comment on above: TEST RESULT LIMITSTr amadol Negative ng/mL Pnidzq=200 TESTING PERFORMED AT [facility]. ORIGINAL REPORT ON FILE IN LAB CONTAINS ADDITIONAL TEST SITE INFORMATION. Urine Barbiturates Screen Negative < 200 ng/mL [facility] Urine Drug Screen Comment [facility] Comment on above: CONFIRMATORY TESTING FOR ALL POSITIVE URINE DRUG SCREENRESULTS WILL ONLY BE SENT OUT UPON PHYSICIAN ORDER. VISTA Urine Drug Screen methods provide only preliminaryanalytical test results. A more specific alternate chemicalmethod must be used in order to obtain a confirmedanalytical result. Gas chromatography/mass spectrometery(GC/MS) is the preferred confirmatory method. Clinicalconsideration and professional judgement should be appliedto any drug of abuse test result, particularly whenpreliminary positive results are used. URINE TCA TESTING MUST BE ORDERED SEPARATELY. USE TESTMNEMONIC: [facility] Urine Methadone Screen Negative < 300 ng/mL [facility] Urine phencyclidine (PCP) de tectionOrdered By: Dr. Layne on 07-20-2022 Phencyclidine Ql (U) Negative < 25 ng/mL [facility] Basophil percentageon 2021 Basophil percentage < 0.9 mg/dL 0.55-1.[address] [facility] Work Phone: No Panel Informationon 11-09 Bedside Estimated GFR (eGFR) > 60.0000 mL/min >60 [facility] Work Phone: COMPREHENSIVE METABOLIC PANE [place] 10-17-2020 Albumin [Mass/Vol] 4.7 g/dL Normal 3.6-5.1 [facility] Comment on above: Performed By: #### 1 [id number], [id number] #### [facility] [address], [address] [place] [id number] Marketing Assistant Manager: Marcelino Matthews MD Albumin/Globulin [Mass ratio] 1.9 {ratio} Normal 1.0-2.5 [facility] Comment on above: Performed By: #### 1 0231, 73932 #### [facility] of [address], [address] [place] [address] Marketing Assistant Manager: Marcelino Matthews MD ALP [Catalytic activity/Vol] 65 U/L Normal 31-125 [facility] Comment on above: Performed By: #### 1 0231, 60889 #### [facility] of [address], [address] [place] [address] Marketing Assistant Manager: Marcelino Matthews MD ALT [Catalytic activity/Vol] 13 U/L Normal 6-29 [facility] Comment on above: Performed By: #### 1 0231, 50443 #### [facility] of [place] [address] Marketing Assistant Manager: Marcelino Matthews MD AST [Catalytic activity/Vol] 15 U/L Normal 10-35 [facility] Comment on above: Performed By: #### 1 0231, 15217 #### [facility] of [place] [address] Marketing Assistant Manager: Marcelino Matthews MD Bilirubin [Mass/Vol] 0.5 mg/dL Normal 0.2-1.2 [facility] Comment on above: Performed By: #### 1 0231, 97902 #### [facility] of [place] [address] Marketing Assistant Manager: Marcelino Matthews MD BUN/CREATININE RATIO NOT APPLICABLE Normal 6-22 [facility] Comment on above: Performed By: #### 1 0231, 07057 #### [facility] of [place] [address] Marketing Assistant Manager: Marcelino Matthews MD Calcium [Mass/Vol] 9.7 mg/dL Normal 8.6-10.2 [facility] Comment on above: Performed By: #### 1 0231, 94812 #### [facility] of [place] [address] Marketing Assistant Manager: Marcelino Matthews MD Chloride [Moles/Vol] 102 mmol/L Normal 98-110 [facility] Comment on above: Performed By: #### 1 0231, 41665 #### [facility] of [address], [address] [place] [address] Marketing Assistant Manager: Marcelino Matthews MD CO2 [Moles/Vol] 31 mmol/L Normal 20-32 [facility] Comment on above: Performed By: #### 1 0231, 39408 #### [facility] of [place] [address] Marketing Assistant Manager: Marcelino Matthews MD Creatinine [Mass/Vol] 0.83 mg/dL Normal 0.50-1.[address] [facility] Comment on above: Performed By: #### 1 0231, 48067 #### [facility] of [place] [address] Marketing Assistant Manager: Marcelino Matthews MD eGFR NON-AFR. CUBAN 84 mL/min/1.73m2 Normal > OR = 60 [facility] Comment on above: Performed By: #### 1 0231, 30279 #### [facility] of [place] [address] Marketing Assistant Manager: Marcelino Matthews MD GFR/1.73 sq M.predicted among blacks MDRD (S/P/Bld) [Vol rate/Area] 97 mL/min/{1.73_m2} Normal > OR = 60 [facility] Comment on above: Performed By: #### 1 0231, 13142 #### [facility] of [place] [address] Marketing Assistant Manager: Marcelino Matthews MD Globulin (S) [Mass/Vol] 2.5 g/dL Normal 1.9-3.7 [facility] Comment on above: Performed By: #### 1 0231, 04715 #### [facility] of [place] [address] Marketing Assistant Manager: Marcelino Matthews MD Glucose [Mass/Vol] 100 mg/dL High 65-99 [facility] Comment on above: Result Comment: Fasting reference interval For someone without known diabetes, a glucose value between 100 and 125 mg/dL is consistent with prediabetes and should be confirmed with a follow-up test. Performed By: #### 1 0231, 22202 #### [facility] [place] [address] Marketing Assistant Manager: Marcelino Matthews MD Potassium [Moles/Vol] 4.2 mmol/L Normal 3.5-5.[address] [facility] Comment on above: Performed By: #### 1 0231, 93681 #### [facility] [address], [address] [place] [address] Marketing Assistant Manager: Marcelino Matthews MD Protein [Mass/Vol] 7.2 g/dL Normal 6.1-8.1 [facility] Comment on above: Performed By: #### 1 0231, 26176 #### [facility] [place] [address] Marketing Assistant Manager: Marcelino Matthews MD Sodium [Moles/Vol] 138 mmol/L Normal 135-146 [facility] Comment on above: Performed By: #### 1 0231, 59068 #### [facility] [place] [address] Marketing Assistant Manager: Marcelino Matthews MD Urea nitrogen [Mass/Vol] 10 mg/dL Normal 7-25 [facility] Comment on above: Performed By: #### 1 0231, 69798 #### [facility] [place] [address] Marketing Assistant Manager: Marcelino Matthews MD SARS COV 2 AB (IGG) SPIKE, S DRAGAN QNon 10-17-2020 SARS-CoV-2 (COVID-19) Ab IA Qn 4.65 index High <1.00 [facility] Comment on above: Result Comment: Reference Range INDEX INTERPRETATION <1.00 Negative > or = 1.00 Positive This test is intended to help identify individuals with antibodies to SARS-CoV-2 (COVID-19). The results of this semi-quantitative test should not be interpreted as an indication or degree of immunity or protection from reinfection. A test result that is 1.00 or more (Positive) means antibodies to SARS-CoV-2 were detected in the blood sample by the test. This could mean that the individual may have an immune response to a recent or prior infection with SARS-CoV-2. Positive results may occur after COVID-19 vaccination, but the clinical significance of a positive antibody result for individuals that have received a COVID-19 vaccine is unknown, and the performance of the test has not been established in COVID-19 vaccinees. False positive results for the test may occur due to cross- reactivity from pre-existing antibodies or other possible causes. A test result that is less than 1.00 (Negative) means that antibodies were not detected in the blood sample by the test. This could mean that the individual has not been previously infected with SARS-CoV-2. The clinical significance of a negative antibody result for individuals that have received a COVID-19 vaccine is unknown. The performance of the test has not been established in COVID-19 vaccinees. False negative results for the test may occur if the individual's antibodies have not reached a sufficient level for the test to be able to detect them. Antibodies can take up to two to three weeks (sometimes longer) to develop after someone is infected. How long antibodies to SARS-CoV-2 last after infection is not known. This test should not be used to diagnose an active SARS- CoV-2 infection. If an active infection is suspected, direct molecular or antigen testing for SARS-CoV-2 is recommended. Please review the Fact Sheets available for healthcare providers and patients using the following websites: https://www.BetterWorks (Closed).Quikey/home/Covid-19/HCP/antibody/ fact-sheet8 https://www.BetterWorks (Closed).Quikey/home/Covid-19/Patients/ antibody/fact-sheet8 Healthcare Providers: For additional information please refer to: http://education.TravelTriangle.Quikey/faq/FQM295 (This link is being provided for informational/ educational purposes only.) This test has been authorized by the FDA under an Emergency Use Authorization (EUA) for use by authorized laboratories. The FDA authorized labeling is available on the [employer] website: www.BetterWorks (Closed).Quikey/Covid19. Performed By: #### 1 1267, 08251 #### [facility] [address], [address] [place] [address] Marketing Assistant Manager: Marcelino Matthews MD Office Visit: Establish Care on 11-17-2015 Protein mass conc Done [facility] Work Phone: Tobacco smoking status NHIS Never [facility] Work Phone: Tobacco smoking status NHIS Never smoker [facility] Work Phone: Vital Signs Date Time Vital Sign Value Performing Clinician Facility 11-05-2024 19:36-0400 Body temperature 98 [degF] Known PA-C Work Phone: [facility] 11-05-2024 19:36-0400 Diastolic blood pressure 90 mm[Hg] Known PA-C Work Phone: [facility] 11-05-2024 19:36-0400 Heart rate 85 /min Known PA-C Work Phone: [facility] 11-05-2024 19:36-0400 Respiratory rate 18 /min [employer] Work Phone: [facility] 11-05-2024 19:36-0400 SaO2% (BldA) [Mass fraction] 100 % Known PA-C Work Phone: [facility] 11-05-2024 19:36-0400 Systolic blood pressure 143 mm[Hg] Known PA-C Work Phone: [facility] 11-05-2024 15:29-0400 Body height 170.18 cm Known PA-C Work Phone: [facility] 11-05-2024 15:29-0400 Body mass index (BMI) [Ratio] 26.7 kg/m2 Known PA-C Work Phone: [facility] 11-05-2024 15:29-0400 Body weight 77.38 kg [employer] Work Phone: [facility] 10-31-2024 11:00-0400 Diastolic blood pressure 81 mm[Hg] Natividad [employer] PA-C Work Phone: [facility] 10-31-2024 11:00-0400 Heart rate 114 /min Natividad [employer] PA-C Work Phone: [facility] 10-31-2024 11:00-0400 Respiratory rate 20 /min Natividad [employer] PA-C Work Phone: [facility] 10-31-2024 11:00-0400 SaO2% (BldA) [Mass fraction] 18 % Natividad [employer] PA-C Work Phone: [facility] 10-31-2024 11:00-0400 Systolic blood pressure 157 mm[Hg] Natividad [employer] PA-C Work Phone: [facility] 10-31-2024 07:20-0400 Body height 167.64 cm Natividad [employer] PA-C Work Phone: [facility] 10-31-2024 07:20-0400 Body mass index (BMI) [Ratio] 27.7 kg/m2 Natividad [employer] PA-C Work Phone: [facility] 10-31-2024 07:20-0400 Body temperature 98.4 [degF] Natividad [employer] PA-C Work Phone: [facility] 10-31-2024 07:20-0400 Body weight 77.88 kg Natividad [employer] PA-C Work Phone: [facility] 10-26-2024 08:30-0400 Body temperature 98.1 [degF] Natividad [employer] PA-C Work Phone: [facility] 10-26-2024 08:30-0400 Diastolic blood pressure 90 mm[Hg] Natividad [employer] PA-C Work Phone: [facility] 10-26-2024 08:30-0400 Heart rate 93 /min Natividad [employer] PA-C Work Phone: [facility] 10-26-2024 08:30-0400 Respiratory rate 18 /min Natividad Hills PA-C Work Phone: [facility] 10-26-2024 08:30-0400 SaO2% (BldA) [Mass fraction] 100 % Natividad Hills PA-C Work Phone: [facility] 10-26-2024 08:30-0400 Systolic blood pressure 164 mm[Hg] Known PA-C Work Phone: [facility] 10-26-2024 05:30-0400 Body mass index (BMI) [Ratio] 29 kg/m2 Known PA-C Work Phone: [facility] 10-26-2024 05:30-0400 Body weight 81.5 kg Natividad Hills PA-C Work Phone: [facility] 11-16-2023 09:14-0400 Body mass index (BMI) [Ratio] 25.21 kg/m2 Lc Marin MD Work Phone: [facility] 11-16-2023 09:14-0400 Body temperature 98.1 [degF] Lc Marin MD Work Phone: [facility] 11-16-2023 09:14-0400 Body weight 73 kg Lc Marni MD Work Phone: [facility] 11-16-2023 09:14-0400 Diastolic blood pressure 84 mm[Hg] Lc Marin MD Work Phone: [facility] 11-16-2023 09:14-0400 Heart rate 93 /min Lc Marin MD Work Phone: [facility] 11-16-2023 09:14-0400 Respiratory rate 18 /min Lc Marin MD Work Phone: [facility] 11-16-2023 09:14-0400 SaO2% (BldA) [Mass fraction] 98 % Lc Marin MD Work Phone: [facility] 11-16-2023 09:14-0400 Systolic blood pressure 138 mm[Hg] Lc Marin MD Work Phone: [facility] 10-06-2023 11:49-0400 Body height 167.64 cm PA-C Known PA Work Phone: [facility] 10-06-2023 11:38-0400 Body mass index (BMI) [Ratio] 26.4 kg/m2 PA-C Known PA Work Phone: [facility] 10-06-2023 11:38-0400 Body weight 74.44 kg PA-C Known PA Work Phone: [facility] 10-06-2023 11:38-0400 Diastolic blood pressure 82 mm[Hg] PA-C Known PA Work Phone: [facility] 10-06-2023 11:38-0400 Systolic blood pressure 122 mm[Hg] PA-C Known PA Work Phone: [facility] 08-12-2022 13:49-0500 Diastolic blood pressure 94 mm[Hg] Armando Paredes MD Work Phone: [facility] 08-12-2022 13:49-0500 Systolic blood pressure 140 mm[Hg] Armando Paredes MD Work Phone: [facility] 08-12-2022 13:42-0500 Body height 170.2 cm Armando Paredes MD Work Phone: [facility] 08-12-2022 13:42-0500 Body weight 70.67 kg Armando Paredes MD Work Phone: [facility] 08-12-2022 13:42-0500 Heart rate 74 /min Armando Paredes MD Work Phone: [facility] 08-12-2022 13:42-0500 SaO2% (BldA) [Mass fraction] 97 % Armando Paredes MD Work Phone: [facility] 11-30-2021 09:33-0400 Body temperature 97.81 [degF] Latoya Athy PA-C Work Phone: [facility] 11-30-2021 09:33-0400 Body weight 66.95 kg Latoya Athy PA-C Work Phone: [facility] 11-30-2021 09:33-0400 Diastolic blood pressure 68 mm[Hg] Latoya Athy PA-C Work Phone: [facility] 11-30-2021 09:33-0400 Heart rate 80 /min Latoya Athy PA-C Work Phone: [facility] 11-30-2021 09:33-0400 Respiratory rate 16 /min Latoya Athy PA-C Work Phone: [facility] 11-30-2021 09:33-0400 SaO2% (BldA) [Mass fraction] 96 % Latoya Athy PA-C Work Phone: [facility] 11-30-2021 09:33-0400 Systolic blood pressure 120 mm[Hg] Latoya Athy PA-C Work Phone: [facility] 11-24-2021 11:00-0400 Body temperature 97.81 [degF] Palak Velazco APRN.[employer] Work Phone: [facility] 11-24-2021 11:00-0400 Body weight 68.04 kg Palak Velazco APRN.[employer] Work Phone: [facility] 11-24-2021 11:00-0400 Diastolic blood pressure 74 mm[Hg] Palak Velazco APRN.[employer] Work Phone: [facility] 11-24-2021 11:00-0400 Heart rate 104 /min Palak Velazco APRN.[employer] Work Phone: [facility] 11-24-2021 11:00-0400 Respiratory rate 18 /min Palak Juan A STICK INSERTER.[employer] Work Phone: [facility] 11-24-2021 11:00-0400 SaO2% (BldA) [Mass fraction] 98 % Palak Velazco APRN.[employer] Work Phone: [facility] 11-24-2021 11:00-0400 Systolic blood pressure 126 mm[Hg] Palak Velazco APRN.[employer] Work Phone: [facility] 11-07-2021 17:16-0400 Body height 167.64 cm PA-C Natividad [employer] PA Work Phone: [facility] 11-07-2021 17:16-0400 Body mass index (BMI) [Ratio] 23.8 kg/m2 PA-C Natividad [employer] PA Work Phone: [facility] Work Phone: 11-07-2021 17:16-0400 Body temperature 97.5 [degF] PA-C Natividad [employer] PA Work Phone: [facility] Work Phone: 11-07-2021 17:16-0400 Body weight 67.13 kg PA-C Natividad [place] PA Work Phone: [facility] Work Phone: 11-07-2021 17:16-0400 Diastolic blood pressure 98 mm[Hg] PA-C Natividad [place] PA Work Phone: [facility] Work Phone: 11-07-2021 17:16-0400 Heart rate 86 /min PA-C Natividad [employer] PA Work Phone: [facility] Work Phone: 11-07-2021 17:16-0400 Respiratory rate 16 /min PA-C Natividad [place] PA Work Phone: [facility] Work Phone: 11-07-2021 17:16-0400 SaO2% (BldA) [Mass fraction] 99 % PA-C [employer] [place] PA Work Phone: [facility] Work Phone: 11-07-2021 17:16-0400 Systolic blood pressure 166 mm[Hg] PA-C Natividad [employer] PA Work Phone: [facility] Work Phone: 08-24-2021 12:29-0400 Body height 167.64 cm PA-C Known PA Work Phone: [facility] Work Phone: 08-24-2021 12:29-0400 Body mass index (BMI) [Ratio] 24.3 kg/m2 PA-C Known PA Work Phone: [facility] Work Phone: 08-24-2021 12:29-0400 Body temperature 97.2 [degF] PA-C Known PA Work Phone: [facility] Work Phone: 08-24-2021 12:29-0400 Body weight 68.49 kg PA-C Known PA Work Phone: [facility] Work Phone: 08-24-2021 12:29-0400 Diastolic blood pressure 96 mm[Hg] PA-C Known PA Work Phone: [facility] Work Phone: 08-24-2021 12:29-0400 Heart rate 93 /min PA-C Known PA Work Phone: [facility] Work Phone: 08-24-2021 12:29-0400 Respiratory rate 16 /min PA-C Natividad [employer] PA Work Phone: [facility] Work Phone: 08-24-2021 12:29-0400 SaO2% (BldA) [Mass fraction] 98 % PA-C Natividad Hills PA Work Phone: [facility] Work Phone: 08-24-2021 12:29-0400 Systolic blood pressure 134 mm[Hg] JANNETH Yee PA Work Phone: [facility] Work Phone: 11-17-2015 12:50-0400 BMI (Body Mass Index) 25.53 kg/m2 [facility] Work Phone: 11-17-2015 12:50-0400 Body Temperature 98.4 [degF] [facility] Work Phone: 11-17-2015 12:50-0400 BP Diastolic 90 mm[Hg] [facility] Work Phone: 11-17-2015 12:50-0400 BP Systolic 140 mm[Hg] [facility] Work Phone: 11-17-2015 12:50-0400 BSA (Body Surface Area) 1.86 m2 [facility] Work Phone: 11-17-2015 12:50-0400 Height 170.18 cm [facility] Work Phone: 11-17-2015 12:50-0400 Pulse (Heart Rate) 91 /min [facility] Work Phone: 11-17-2015 12:50-0400 Respiratory Rate 18 /min [facility] Work Phone: 11-17-2015 12:50-0400 Weight 73.94 kg [facility] Work Phone: Encounters Encounter Date Encounter Type Care Provider Facility Start: 12-04-2024 [facility] Facility: [facility] Start: 11-27-2024 ambulatory [facility] Facility: [facility] Start: 11-26-2024 ambulatory Kala Solares Facility: [facility] Start: 11-05-2024 End: 11-05-2024 Emergency department patient visit Natividad Yee PA-C Work Phone: -Emergency Department Work Phone: Start: 10-31-2024 End: 10-31-2024 Emergency department patient visit Natividad Yee PA-C Work Phone: -Emergency Department Work Phone: Start: 10-26-2024 End: 10-26-2024 Emergency department patient visit Natividad Yee PA-C Work Phone: -Emergency Department Work Phone: Start: 09-06-2024 End: 09-06-2024 ambulatory Natividad Hills PA-C Work Phone: [facility] Work Phone: Start: 09-06-2024 End: 09-06-2024 Patient encounter procedure Elinor Aguilar PLATFORM MATERIAL HANDLER MANAGER-C -Laboratory, Specimen Work Phone: Start: 09-06-2024 End: 09-06-2024 ambulatory Elinor Aguilar NP Facility:[facility] Start: 03-15-2024 ambulatory [facility] Start: 11-30-2023 End: 11-30-2023 ambulatory Natividad Hills GARRET Facility:[facility] Start: 11-30-2023 End: 11-30-2023 ambulatory Charlette Tran Facility:[facility] Start: 11-16-2023 End: 11-16-2023 ambulatory [facility] Facility:[facility] Start: 11-16-2023 End: 11-16-2023 Patient encounter procedure Lc Marin MD Work Phone: [facility] Comment on above: Paronychia of great toe of right foot (Primary Dx); Pediculosis capitis Start: 10-06-2023 End: 10-06-2023 ambulatory PA-C Known PA Work Phone: [facility] Work Phone: Start: 10-06-2023 End: 10-06-2023 Patient encounter procedure PA-Zeke Yee PA Work Phone: [facility]-Laboratory, Specimen Work Phone: Start: 10-06-2023 End: 10-06-2023 Patient encounter procedure PA-Zeke Yee PA Work Phone: [facility] Work Phone: Start: 03-22-2023 End: 03-22-2023 ambulatory [facility] Work Phone: Start: 03-22-2023 End: 03-22-2023 Patient encounter procedure [facility], [place] Work Phone: Start: 11-18-2022 End: 11-18-2022 ambulatory [facility] Work Phone: Start: 11-18-2022 End: 11-18-2022 Discharged Recurring [facility]-Physical Therapy Work Phone: Start: 09-30-2022 Registered Recurring PA-C Nivia Yee PA Work Phone: [facility]-Physical Therapy Start: 09-27-2022 End: 09-27-2022 ambulatory PA-C Natividad Yee PA Work Phone: [facility] Work Phone: Start: 09-27-2022 End: 09-27-2022 Patient encounter procedure PA-C Natividad Yee PA Work Phone: [facility]-Outpatient Breast Imaging Start: 08-19-2022 Registered Recurring PA-C Nivia Yee PA Work Phone: [facility]-Physical Therapy Start: 08-17-2022 End: 08-17-2022 ambulatory PA-C Natividad Yee PA Work Phone: [facility] Work Phone: Start: 08-17-2022 End: 08-17-2022 Patient encounter procedure JANNETH COMBS Work Phone: [facility]-Laboratory Start: 08-13-2022 ambulatory Armando pham MD Work Phone: Neurology Comment on above: pain psychology Start: 08-13-2022 E-mail encounter fro m caregiver Armando Paredes MD Work Phone: [facility] Start: 08-12-2022 End: 08-12-2022 Patient encounter procedure Armando Paredes MD Work Phone: Neurology Comment on above: 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 (Primary Dx) Start: 08-06-2022 Telephone encounter Lori Gimenez brittni DAVID Work Phone: Neurology Comment on above: Faxed EMG Results Start: 08-05-2022 End: 08-05-2022 ambulatory Emg 300) Work Phone: Neurology Comment on above: EMG Start: 08-05-2022 End: 08-05-2022 Patient encounter procedure Emg 1 Neur Stro (Max Weight: 300) Work Phone: [facility] Start: 08-05-2022 Telephone encounter Armando Paredes MD Work Phone: Neurology Comment on above: Forms ([employer] ) Start: 07-26-2022 Registered Recurring JANNETH COMBS Work Phone: [facility]-Physical Therapy Start: 07-20-2022 End: 07-20-2022 Orders Only Priscila Umaña Work Phone: Neurology Comment on above: Chronic left-sided l umbar radiculopathy (Primary Dx) Start: 07-20-2022 End: 07-20-2022 Patient encounter procedure JANNETH COMBS Work Phone: [facility]-Laboratory Start: 06-21-2022 Non-patient / Non-visit JANNETH Yee PA Work Phone: [facility] Start: 06-21-2022 End: 06-21-2022 ambulatory GARRET-Zeke Yee PA Work Phone: [facility] Work Phone: Start: 06-21-2022 End: 06-21-2022 Patient encounter procedure JANNETH Yee PA Work Phone: [facility]-Cardiovascular Services Start: 11-30-2021 Telephone encounter Latoya cifuentes PA-C Work Phone: [facility] Comment on above: Prescription Request to Different Pharmacy Start: 11-30-2021 End: 11-30-2021 Patient encounter procedure Latoya Clement PA-C Work Phone: [facility] Comment on above: Hordeolum externum o f right upper eyelid (Primary Dx) Start: 11-24-2021 Telephone encounter No Pcp [facility] [place] Comment on above: Results Start: 11-24-2021 End: 11-24-2021 Patient encounter procedure Palak Velazco APRN.[employer] Work Phone: [facility] Comment on above: Close exposure to [place] VID-19 virus (Primary Dx) Start: 11-09-2021 End: 11-09-2021 Patient encounter procedure JANNETH Yee PA Work Phone: [facility] Start: 11-07-2021 End: 11-07-2021 Emergency department patient visit JANNETH Yee PA Work Phone: [facility]-Emergency Department Start: 08-24-2021 Non-patient / Non-visit JANNETH Yee PA Work Phone: [facility] Start: 08-24-2021 End: 08-24-2021 Emergency department patient visit JANNETH Yee PA Work Phone: [facility]-Emergency Department Procedures Date Procedure Procedure Detail Performing Clinician Start: 11-05-2024 X-ray of chest, PA a nd lateral views Known PA-C Work Phone: Start: 11-05-2024 D-dimer assay, quantitative Known PA-C Work Phone: Comment on above: NORMAL D-Dimer level (<0.50) indicates no DVT or PE. Start: 11-05-2024 Estimated creatinine clearance Known PA-C Work Phone: Start: 10-31-2024 Methadone measuremen t, urine Known PA-C Work Phone: Start: 10-31-2024 Estimated creatinine clearance Known PA-C Work Phone: Start: 10-26-2024 Urnls dip stick/tabl et reagent auto microscopy Known PA-C Work Phone: Start: 10-26-2024 Estimated creatinine clearance Known PA-C Work Phone: Start: 10-06-2023 Genital Culture PA-C Davidson ollie [employer] [place] PA Work Phone: Start: 10-06-2023 Investigation of transfusion reaction PA-C Known PA Work Phone: Start: 09-27-2022 Screening mammography P A-C Known PA Work Phone: Start: 08-05-2022 Nerve conduction talia dies 5-6 studies Ayah Whiting MD Work Phone: Start: 11-09-2021 CT of abdominal aort a with contrast PA-C Known PA Work Phone: Start: 11-17-2015 Screening mammography Screening mamm ogram Brook Vasquez RN Start: 11-17-2015 Thyroid disorder screening Screening for thyroid disorder Brook Vasquez RN Start: 04-19-2007 Colonoscopy Palak Velazco APRN.CNP Work Phone: Plan of Treatment Date Care Activity Detail Author Start: 11-05-2024 [facility] Start: 11-05-2024 [facility] Start: 10-31-2024 [facility] Start: 10-26-2024 [facility] Start: 10-26-2024 [facility] Start: 02-05-2024 Influenza vaccination Influenz a Vaccine (Season Ended) [facility] Start: 08-06-2023 DIABETES SCREEN DIABETES SCREEN [facility] Start: 08-06-2023 Diabetes Screening Diabetes Screenin g [facility] Start: 06-06-2023 Behavioral Health Screening Behavioral Health Screening [facility] Start: 2023 Shingrix Vaccine (1 of 2) Shingrix Vaccine (1 of 2) [facility] Start: 02-04-2023 Covid-19 Vaccine ( season) Covid-19 Vaccine ( season) [facility] Start: 08-17-2022 Procedure [facility] Start: 06-06-2022 DEPRESSION ASSESSMENT DEPRESSION ASS ESSMENT [facility] Start: 02-04-2022 Influenza vaccination C [facility] Start: 11-24-2021 End: 12-08-2021 Influenza virus A and B RNA and SARS-CoV-2 (COVID-19) N gene panel - Respiratory specimen by KEYSHA with probe detection [facility] Work Phone: Comment on above: Expected: 11/24/2021 , Expires: 12/08/2021 Start: 2018 COLOGUARD (FIT-DNA) COLOGUARD (FIT-D NA) [facility] Start: 2018 Colonoscopy COLONOSCOPY [facility] Start: 2018 COLORECTAL CANCER SCREENING COLORECTAL CANCER SCREENING [facility] Start: [address] COLONOGRAPHY [facility] Start: 2018 FECAL OCCULT BLOOD FECAL OCCULT BLOO D [facility] Start: 2018 Lipid panel Lipid Screening [facility] Start: 2018 LIPID SCREEN LIPID SCREEN [facility] Start: 2018 Screening for malign ant neoplasm of colon [facility] Start: 2018 SIGMOIDOSCOPY SIGMOIDOSCOPY [facility] Start: 02-10-2017 End: 02-10-2017 Xtrnl mobile cv telemetry w/i&report 30 days 30 Day Holter Monitor [facility] Work Phone: Start: 11-17-2015 End: 11-17-2015 *CMP Complete Metabolic Panel *CMP Complete Metabolic Panel [facility] Work Phone: Start: 11-17-2015 End: 11-17-2015 Hemoglobin A1c/Hemoglobin.total mass fraction (Bld) *HgA1C [facility] Work Phone: Start: 11-17-2015 End: 11-17-2015 Lipid 1996 panel *Lipid Profile [facility] Work Phone: Start: 11-17-2015 End: 11-17-2015 Mammogram, screening Mammogram, Screening, both breasts [facility] Work Phone: Start: 11-17-2015 End: 11-17-2015 T3 free mass conc *T3-Free [facility] Work Phone: Start: 11-17-2015 End: 11-17-2015 T4 free mass conc *T4 free [facility] Work Phone: Start: 11-17-2015 End: 11-17-2015 Thyroglobulin mass conc *ATAB - Thyroglobulin Antibody [facility] Work Phone: Start: 11-17-2015 End: 11-17-2015 Thyrotropin Qn *TSH [facility] Work Phone: Start: 2013 Mammography MAMMOGRAM [facility] Start: 2013 Screening for malign ant neoplasm of breast Mammogram Screening [facility] Start: 2003 HPV TESTING HPV TESTING [facility] Start: 1994 PAP TESTING PAP TESTING [facility] Start: 1994 Screening for malign ant neoplasm of cervix Cervical Cancer Screening [facility] Start: 1992 Hepatitis B Vaccine (1 of 3 - 19+ 3-dose series) Hepatitis B Vaccine (1 of 3 - 19+ 3-dose series) [facility] Start: 1992 Urine microalbumin profile [facility] Start: 1991 HEPATITIS C SCREENING HEPATITIS C [facility] Start: 1991 Hepatitis C screening Hepatitis C [facility] Start: 1991 HIV SCREENING HIV SCREENING [facility] Start: 1991 HIV screening HIV Screening [facility] Start: 1985 Adult depression screening assessment DEPRESSION SCREENING [facility] Start: 1978 COVID-19 VACCINE (#1) COVID-19 VACCI NE (#1) [facility] Start: 1973 COVID-19 VACCINE (#1) COVID-19 VACCI NE (#1) [facility] Start: 1973 HEPATITIS B (1 of 3 - 3-dose series) HEPATITIS B (1 of 3 - 3-dose series) [facility] End: 07-20-2023 EMG(NEURO/NI) EMG(NEURO/NI) EMG Routine Chronic left-sided lumbar radiculopathy 1 Occurrences starting 07/20/2022 until 07/20/2023 [facility] Work Phone: Comment on above: 1 Occurrences starti ng 07/20/2022 until 07/20/2023 Patient Education [facility] Work Phone: Patient referral [facility] Work Phone: [facility] Payers Date Payer Category Payer Unknown [id number] 2023 Self-pay [id number] 2023 Unknown [id number] 2023 Unknown 0 2022 Unknown [id number] 2021 Unknown [id number] 2019 Unknown [employer] PPO [id number] 2019-Present [phone] [address] [place] [address] PPO [id number] 2019 Unknown [id number] 1973 Unknown [id number] Unknown [id number] Unknown [id number] Unknown [id number] Unknown [id number] Unknown [id number] Unknown [id number] Unknown [id number] Unknown [id number] Unknown [id number] Social History Date Type Detail Facility [facility] Work Phone: Start: 08-24-2021 End: 11-07-2021 Tobacco smoking status ARIS Unknown if ever smoked [facility] Start: 11-27-2019 Non-smoker [facility] Start: 1975 [facility]igned At [facility] Start: 11-12-2016 End: 11-05-2024 Tobacco smoking status NHIS Never smoked tobacco [facility] Work Phone: History of tobacco use Cigarette Smoker [facility] Work Phone: Start: 11-12-2016 End: 11-16-2023 Tobacco use and exposure Smokeless tobacco non-user [facility] Work Phone: Start: 11-24-2021 End: 11-16-2023 Alcohol intake Current non-drinker of alcohol (finding) [facility] Start: 11-14-2021 End: 11-24-2021 Exposure to SARS-CoV-2 (event) Yes [facility] Work Phone: Start: 11-20-2021 End: 11-30-2021 Exposure to SARS-CoV-2 (event) Not sure [facility] Work Phone: Start: 08-12-2022 End: 11-16-2023 History of Social function [facility] Start: 08-12-2022 End: 11-16-2023 Tobacco use panel [facility] National Score (1-10 0), lower number is lower risk 71 [facility] Start: 07-22-2020 Gender identity Identifies as female gender (finding) [facility] Start: 07-22-2020 Sexual orientation Heterosexual (fin ding) [facility] Start: 09-11-2024 Sex Female (finding) [facility] Mental Status Date Assessment Result Facility 11-05-2024 Cognitive function Level Of Cons ciousness Awake;Alert;Appropriate;Follow s Commands [facility] Work Phone: 10-31-2024 Cognitive function Level Of Cons ciousness Awake;Alert;Appropriate;Follow s Commands [facility] Work Phone: Clinical Notes 11-24-2021 to 11-05-2024 Lc Marin MD - 11/16/2023 9:40 AM EDT Note Date & Type Note Facility 11-05-2024 Radiology Diagnostic study note [facility] Imaging Services [address] [place], [place] [address] Chest PA and Lateral MR#: [id number] Acct: [id number] Name: VERONICA UMAÑA Rep #: [id number] : 1975 F [id number] From: Victoria Becker MD PCP: Care Physician,No Primary Status: REG ER Study:Chest PA and Lateral Date of Exam: 11/05/24 Exam# [id number] Ordering Dr: Victor Hugo Mota DO PROCEDURE: CHEST PA AND LATERAL 11/05/2024 REASON FOR EXAM: CHEST PAIN TECHNIQUE: Frontal and lateral views of the chest. COMPARISON: None FINDINGS: Hardware: None Heart: The heart size is normal. Mediastinum: The mediastinal contour is unremarkable. Lungs: The lungs are clear. Bones: The bones are unremarkable. RAD/Chest PA and Lateral IMPRESSION: No acute cardiopulmonary abnormality. Reading Location: [id number] CC: Dr. Victor Hugo Suh DO; No Primary Care Physician ~ Mechanical Specialist: Signed [facility] 11-05-2024 Hospital Discharg e instructions Additional Instructions Follow-up with your new PCP. If you do not like them follow-up with the one listed above. Return back to the ED if symptoms change or worsen. Ativan as needed for anxiety. This is related to clonazepam. You told me you only take your clonazepam at night. Do not take the Ativan with the clonazepam at night. Instead take it in the morning or during the afternoon if needed for anxiety. [facility] Work Phone: 10-31-2024 Discharge summary [facility] 11-16-2023 Note HNO ID: [id number] Author: LC MARIN MD Service: ? Author Type: Physician Type: Progress Notes Filed: 11/16/2023 10:40 Note Text: Patient presents with: Eye Problem: Right eye swelling and right big toe pain-from pedicure yesterday HPI: Skin Lesion: Location: right great toe medial border Duration: had a hang nail removed at the [facility] yesterday Pruritis/Pain: tender Drainage/blister/pustule/ulceration: redness, swelling, drainage Treatment: keflex (keeps on hand for UTIs). Skin Lesion: Location: above the right eye Duration: woke with puffiness this morning, used topical ivermectin yesterday. Pruritis/Pain: no Drainage/blister/pustule/ulceration: puffiness Treatment: none Lice: Location: scalp Duration: couple months Pruritis/Pain: pruritic Change: initially had a severe case with bites extending to her face. Various treatments have temporarily reduced pruritus. Drainage/blister/pustule/ulceration: found a couple nymphs prompting appointment for treatment today, previously has kept the lice in a bag as evidence of infestation Treatment: permethrin, spinosad, coconut oil, olive oil, mineral oil, oral ivermectin, topical ivermectin, nit combing 2h/day, lice treatment specialists, dermatology, infectious disease refused to see her PAST MEDICAL HISTORY Diagnosis Date Chronic interstitial cystitis resolved Yesica-Danlos syndrome type III Miscarriage 4 Miscarriages Other forms of migraine resolved PTSD (post-traumatic stress disorder) Rosacea Unspecified hypothyroidism MEDICATIONS: Magnesium Citrate 150mg 90 ct. (Pure Encapsulations) Take 3 capsules daily. Magnesium Glycinate 120mg 3 at night Stress, blood sugar, thyroid/hormones/adrenals/sleep/energy/toxins/muscles/constipation/asthma Work up to 3 capsules with meals at night - can cause loose stools metoprolol succinate ER (TOPROL XL) 25 mg 24 hr tablet Take 50 mg by mouth once daily. traMADOL 50 mg ORAL Tab as necessary.Take one(1) tablet as needed acetaminophen (TYLENOL 8 HOUR ORAL) Take by mouth. aspirin 325 mg tablet Take 325 mg by mouth once daily. QUEtiapine 50 mg tablet Take 12 mg by mouth daily at bedtime. (Patient not taking: Reported on 11/16/2023) clonazepam (KLONOPIN) 0.5 mg ORAL Tab Take one(1) tablet daily ALLERGIES: ALLERGIES Allergen Reactions Cipro [Ciprofloxaci* Hives Cymbalta [Duloxetin* Intolerance Levoquin [Levofloxa* Hives All henry drugs Paba [P-Aminobenzoi* bumps all over my face Quinolones Hives Sulfa (Sulfonamide * Hives and pruritis Z Pack [Azithromyci* sharp abdominal pain VITALS: BP 138/84 Pulse 93 Temp 36.7 ?C (98.1 ?F) (Tympanic) Resp 18 Wt 73 kg (160 lb 15 oz) LMP 08/07/2022 (Approximate) SpO2 98% BMI 25.21 kg/m? PHYSICAL EXAM: GEN: pleasant, somewhat anxious but no acute distress, alert HEENT: PERRL, EOMI, trace edema between the upper eyelid and brow, MMM NECK: supple, no lymphadenopathy, no thyromegaly HEART: regular rate, regular rhythm, no murmurs LUNGS: clear to auscultation, no wheezes or crackles, no increased WOB EXT: no clubbing, no cyanosis, no edema. Mild erythema and edema medial nail fold of the right great toe with moistness between the nail and fold. Scalp: no erythema, ulceration, scale, nits, or live lice identified. ASSESSMENT/PLAN: 1. Paronychia of great toe of right foot - ICD9: 681.11, ICD10: L03.031 (primary diagnosis) She is leaving for her daughter's wedding soon and is concerned for worsening infection. Add - DOXYCYCLINE MONOHYDRATE 100 MG CAPSULE 2. Pediculosis capitis - ICD9: 132.0, ICD10: B85.0 No current signs of lice infestation but reports recent removal of a live louse. Continue nit combing. Discussed options for treatment - which she has already exhausted. Reviewed pruritus may persist despite eradication and should not be used as evidence of infestation. Follow up with primary care or specialist for repeat checks to confirm she remains free of live lice or nits. Lc Marin MD [facility] 11-16-2023 History of Present illness Narrative Formatting of this note is different fro m the original. Patient presents with: Eye Problem: Right eye swelling and right big toe pain-from pedicure yesterday HPI: Skin Lesion: Location: right great toe medial border Duration: had a hang nail removed at the [facility] yesterday Pruritis/Pain: tender Drainage/blister/pustule/ulceration: redness, swelling, drainage Treatment: keflex (keeps on hand for UTIs). Skin Lesion: Location: above the right eye Duration: woke with puffiness this morning, used topical ivermectin yesterday. Pruritis/Pain: no Drainage/blister/pustule/ulceration: puffiness Treatment: none Lice: Location: scalp Duration: couple months Pruritis/Pain: pruritic Change: initially had a severe case with bites extending to her face. Various treatments have temporarily reduced pruritus. Drainage/blister/pustule/ulceration: found a couple nymphs prompting appointment for treatment today, previously has kept the lice in a bag as evidence of infestation Treatment: permethrin, spinosad, coconut oil, olive oil, mineral oil, oral ivermectin, topical ivermectin, nit combing 2h/day, lice treatment specialists, dermatology, infectious disease refused to see her PAST MEDICAL HISTORY Diagnosis Date Chronic interstitial cystitis resolved Yesica-Danlos syndrome type III Miscarriage 4 Miscarriages Other forms of migraine resolved PTSD (post-traumatic stress disorder) Rosacea Unspecified hypothyroidism MEDICATIONS: Magnesium Citrate 150mg 90 ct. (Pure Encapsulations) Take 3 capsules daily. Magnesium Glycinate 120mg 3 at night Stress, blood sugar, thyroid/hormones/adrenals/sleep/energy/toxins/muscles/constipation/asthma Work up to 3 capsules with meals at night - can cause loose stools metoprolol succinate ER (TOPROL XL) 25 mg 24 hr tablet Take 50 mg by mouth once daily. traMADOL 50 mg ORAL Tab as necessary.Take one(1) tablet as needed acetaminophen (TYLENOL 8 HOUR ORAL) Take by mouth. aspirin 325 mg tablet Take 325 mg by mouth once daily. QUEtiapine 50 mg tablet Take 12 mg by mouth daily at bedtime. (Patient not taking: Reported on 11/16/2023) clonazepam (KLONOPIN) 0.5 mg ORAL Tab Take one(1) tablet daily ALLERGIES: ALLERGIES Allergen Reactions Cipro [Ciprofloxaci* Hives Cymbalta [Duloxetin* Intolerance Levoquin [Levofloxa* Hives All henry drugs Paba [P-Aminobenzoi* bumps all over my face Quinolones Hives Sulfa (Sulfonamide * Hives and pruritis Z Pack [Azithromyci* sharp abdominal pain VITALS: BP 138/84 Pulse 93 Temp 36.7 C (98.1 F) (Tympanic) Resp 18 Wt 73 kg (160 lb 15 oz) LMP 08/07/2022 (Approximate) SpO2 98% BMI 25.21 kg/m PHYSICAL EXAM: GEN: pleasant, somewhat anxious but no acute distress, alert HEENT: PERRL, EOMI, trace edema between the upper eyelid and brow, MMM NECK: supple, no lymphadenopathy, no thyromegaly HEART: regular rate, regular rhythm, no murmurs LUNGS: clear to auscultation, no wheezes or crackles, no increased WOB EXT: no clubbing, no cyanosis, no edema. Mild erythema and edema medial nail fold of the right great toe with moistness between the nail and fold. Scalp: no erythema, ulceration, scale, nits, or live lice identified. ASSESSMENT/PLAN: 1. Paronychia of great toe of right foot - ICD9: 681.11, ICD10: L03.031 (primary diagnosis) She is leaving for her daughter's wedding soon and is concerned for worsening infection. Add - DOXYCYCLINE MONOHYDRATE 100 MG CAPSULE 2. Pediculosis capitis - ICD9: 132.0, ICD10: B85.0 No current signs of lice infestation but reports recent removal of a live louse. Continue nit combing. Discussed options for treatment - which she has already exhausted. Reviewed pruritus may persist despite eradication and should not be used as evidence of infestation. Follow up with primary care or specialist for repeat checks to confirm she remains free of live lice or nits. Lc Marin MD documented in this encounter [facility] 02-03-2023 Discharge summary Note Date/Time February 03, 2023 9:43am [facility] [address] [place] [address]. [address] [place] [address] / REHABILITATION SERVICES DISCHARGE SUMMARY MR#: [id number] Acct: [id number] Name: VERONICA UMAÑA Rep #: [id number] : 1975 47 From: Jessie Conrad Referring Dr.: Dr. Meg Sadler MD Status: REG R Insurance: [employer] [facility] [employer] Patient Information Patient Information: VERONICA UMAÑA was seen in my office for initial evaluation on 07/08/22. The following Plan of Care was established for this patient: POC Established Initial Frequency: 3x /Week Initial Duration: 4 Weeks Anticipated Interventions Patient/Client Instruction: Educate patient on: Benefits of Fitness Program Therapeutic Exercise to Include: Strength training, Endurance training, Balance training, Coordination, Agility training, Body mechanics, Postural training, Flexibilty training, Gait and locomotor training, Neuromotor development, Dynamic Lumbar Stabilization and Scapular Strength/Stabilization Last Seen Last Seen: This patient was last seen in our office . Pertinent comments regarding their Physical therapy will appear below: Patient continues with massage therapy- appropriate to be d/c from PT at this time and continue HEP At this point I will be discontinuing this patient from physical therapy. I would be happy to see this patient again in the future if found appropriate by the physician. Thank you! Jessie Li, DPT Balance/Gait/Functional tests Balance/Special Test Scores Lower Extremity Functional Score: 45 <Electronically signed by Jessie Li DPT> 02/03/23 0943 CC: JANNETH Yee; Dr. Meg Sadler MD; BRANDY SANTOS ~ ELR Signed [facility] Work Phone: 1(334) 182-148407-05-2023 Discharge summary Author Margaret Oliva [facility] December 08, 2022 11:10am Note Date/Time December 08, 2022 11:11 am [facility] [facility] [address] [place] [address] / REHABILITATION SERVICES DISCHARGE SUMMARY MR#: [id number] Acct: [id number] Name: VERONICA UMAÑA Rep #: [id number] : 1975 47 From: Margaret Conrad Referring Dr.: Dr. Meg Sadler MD Status: REG RCR Insurance: [employer] [facility] [employer] Patient Information Patient Information: VERONICA UMAÑA was seen in my office for initial evaluation on 07/08/22. The following Plan of Care was established for this patient: POC Established Initial Frequency: 3x /Week Initial Duration: 4 Weeks Anticipated Interventions Patient/Client Instruction: Educate patient on: Benefits of Fitness Program Therapeutic Exercise to Include: Strength training, Endurance training, Balance training, Coordination, Agility training, Body mechanics, Postural training, Flexibilty training, Gait and locomotor training, Neuromotor development, Dynamic Lumbar Stabilization and Scapular Strength/Stabilization Last Seen Last Seen: This patient was last seen in our office . Pertinent comments regarding their Physical therapy will appear below: At this point I will be discontinuing this patient from physical therapy. I would be happy to see this patient again in the future if found appropriate by the physician. Thank you! Margaret Oliva, MINI Balance/Gait/Functional tests Balance/Special Test Scores Lower Extremity Functional Score: 45 <Electronically signed by Margaret Oliva MPT> 12/08/22 1110 CC: JANNETH Yee; Dr. Meg Sadler MD; BRANDY SANTOS ~ Signed [facility] Work Phone: [phone] 585-292903-09-2023 Instructions* Patient Instructions* Armando Paredes MD - 08/12/2022 2:51 PM EST Raul Hanson, healing back pain Use this link to send us a copy of your images from your home computer: [email or web address] To schedule an appointment with me, please call my medical assistant secretary Lynn at [phone]. [facility] History of Present illness Narrative* Armando Paredes MD - 08/12/2022 2:01 PM EST HPI: This is Ms. Veronica Umaña a 47 year old female from who presents to the [facility] neurology department with a chief complaint of Referring provider: Priscila Umaña, FREDDY [address] [place] [address] There is a history of Yesica danlos She had chronic radicular type issue in the left leg She has weakness and muscle wasting It kind of started around 12 years ago They are trying to figure out if is lumbar radicular issues or other issues in the neurologic system that is causing her chronic pain The whole left leg has been debilitating Burning in the left back, buttocks, hamstrings, radiating down to the left ankle 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 She can't do MRI d/t claustraphobia. She wonders if it could be her hip. Her left acl tore, she couldn't walk on it, has been doing pt since then. PDMP score 381: Clonazepam 0.5 mg bid Natividad Yee Pa-C Tramadol 50 mg daily Gloria Layne MD Other: quetiapine 50 mg HS. PMH: PAST MEDICAL HISTORY Diagnosis Date Chronic interstitial cystitis resolved Yesica-Danlos syndrome type III Miscarriage 4 Miscarriages Other forms of migraine resolved PTSD (post-traumatic stress disorder) Rosacea Unspecified hypothyroidism Medications: Current Outpatient Medications Medication Sig Dispense Refill acetaminophen (TYLENOL 8 HOUR ORAL) Take by mouth. aspirin 325 mg tablet Take 325 mg by mouth once daily. Magnesium Citrate 150mg 90 ct. (Pure Encapsulations) Take 3 capsules daily. Magnesium Glycinate 120mg 3 at night Stress, blood sugar, thyroid/hormones/adrenals/sleep/energy/toxins/muscles/constipation/asthma Work up to 3 capsules with meals at night - can cause loose stools 0 metoprolol succinate ER (TOPROL XL) 25 mg 24 hr tablet Take 50 mg by mouth once daily. QUEtiapine 50 mg tablet Take 12 mg by mouth daily at bedtime. traMADOL 50 mg ORAL Tab as necessary.Take one(1) tablet as needed 0 clonazepam (KLONOPIN) 0.5 mg ORAL Tab Take one(1) tablet daily 0 GI-Revive 225 gram Powder (CitizenDish) Take 1 tablespoons twice daily (1 tablespoon = 1.5 grams L-glut) (Patient not taking: No sig reported) phenazopyridine (PYRIDIUM) 200 mg tablet Take 1 tablet by mouth three times daily as needed. (Patient not taking: No sig reported) 20 tablet 0 TRETINOIN (RETIN-A TOPICAL) Apply to affected area. (Patient not taking: No sig reported) HYDROQUINONE TOPICAL Apply to affected area. (Patient not taking: No sig reported) No current facility-administered medications for this visit. Allergies: ALLERGIES Allergen Reactions Cipro [Ciprofloxaci* Hives Cymbalta [Duloxetin* Intolerance Levoquin [Levofloxa* Hives All henry drugs Paba [P-Aminobenzoi* bumps all over my face Quinolones Hives Sulfa (Sulfonamide * Hives and pruritis Z Pack [Azithromyci* sharp abdominal pain Social History: Social History Tobacco Use Smoking status: Never Smokeless tobacco: Never Substance Use Topics Alcohol use: No Drug use: No Family History: FAMILY HISTORY Problem Relation Age of Onset Breast Cancer Mother Hypertension Father other (Colon polyps) Father Breast Cancer Maternal Grandmother Diabetes Paternal Grandfather Colon Cancer Paternal Grandfather Hypertension Paternal Grandfather Hypertension Paternal Aunt ROS: A complete review of systems was performed. All systems negative other than those mentioned inHPI. Physical Exam: Vitals: BP 140/94 (BP Site: Right Arm, BP Position: Sitting, BP Cuff Size: Regular Adult) Pulse 74 Ht 170.2 cm (5' 7) Wt 70.7 kg (155 lb 12.8 oz) LMP 08/07/2022 (Approximate) SpO2 97% BMI 24.40 kg/m General appearance: no acute distress. Neurological Exam: MSE: Alert and oriented to person, place, and time. Speech is fluent without dysarthria or aphasia.Recall is intact to recent and remote events. Attention and concentration are intact. Fund of knowledge is intact. CN: Pupils equally round and reactive to light. Optic discs sharp bilaterally Extraoccular muscles intact. Visual anderson full. Facial sensation deferred d/t covid. Facial muscles symmetric. Hearing intact to voice. Tongue/palate deferred d/t covid. Shoulder shrug 5/5 bilaterally. MSK: Normal bulk and tone throughout. Deltoid Triceps Biceps Wrist ext. Hand intrinsic Hip flexion Knee flexion Knee Ext. Tayo. Flex Pl. flex Right 5 5 5 5 5 5 5 5 5 5 Left 5 5 5 5 5 5 5 5 5 5 Sensation: Intact to light touch, pinprick, and vibration throughout. Reflexes: R L Biceps 2 2 Triceps 2 2 Brachioradialis 2 2 Patellar 2 2 Achilles 2 2 Toes downgoing bilaterally Cerebellar: Intact finger to nose bilaterally. Gait: Normal. Labs: WBC Date Value Ref Range Status 08/05/2020 7.97 3.70 - 11.00 k/uL Final Hemoglobin Date Value Ref Range Status 08/05/2020 14.3 11.5 - 15.5 g/dL Final Hematocrit Date Value Ref Range Status 08/05/2020 43.0 36.0 - 46.0 % Final MCV Date Value Ref Range Status 08/05/2020 92.5 80.0 - 100.0 fL Final Platelet Count Date Value Ref Range Status 08/05/2020 310 150 - 400 k/uL Final Sodium Date Value Ref Range Status 08/05/2020 139 136 - 144 mmol/L Final Potassium Date Value Ref Range Status 08/05/2020 4.2 3.7 - 5.1 mmol/L Final Chloride Date Value Ref Range Status 08/05/2020 102 97 - 105 mmol/L Final CO2 Date Value Ref Range Status 08/05/2020 25 22 - 30 mmol/L Final BUN Date Value Ref Range Status 08/05/2020 10 7 - 21 mg/dL Final Creatinine Date Value Ref Range Status 08/05/2020 0.70 0.58 - 0.96 mg/dL Final Calcium Date Value Ref Range Status 08/05/2020 9.9 8.5 - 10.2 mg/dL Final Albumin Date Value Ref Range Status 08/05/2020 4.5 3.9 - 4.9 g/dL Final Protein, Total Date Value Ref Range Status 08/05/2020 7.0 6.3 - 8.0 g/dL Final AST Date Value Ref Range Status 08/05/2020 25 13 - 35 U/L Final ALT Date Value Ref Range Status 08/05/2020 16 7 - 38 U/L Final Alkaline Phosphatase Date Value Ref Range Status 08/05/2020 63 34 - 123 U/L Final Bilirubin, Total Date Value Ref Range Status 08/05/2020 0.2 0.2 - 1.3 mg/dL Final Anion Gap Date Value Ref Range Status 08/05/2020 12 9 - 18 mmol/L Final TSH Date Value Ref Range Status 08/05/2020 0.649 0.270 - 4.200 uU/mL Final Comment: If the patient is , TSH reference range varies by gestational period: First Trimester (weeks 9-12): 0.180-2.990 mcIU/mL Second Trimester: 0.110-3.980 mcIU/mL Third Trimester: 0.480-4.710 mcIU/mL William Elias et al. A Practical Approach for the Verifications and Determination of Site- and Trimester-Specific Reference Intervals for Thyroid Function tests in . Thyroid, 2019:29:3:412-420. Jim Rogers, et al. 2017 Guidelines of the [place] Thyroid Association for the Diagnosis and Management of Thyroid Disease during and the . Thyroid, 2017:27:3:315-389. Free T4 Date Value Ref Range Status 08/05/2020 1.3 0.9 - 1.7 ng/dL Final Hemoglobin A1C Date Value Ref Range Status 08/05/2020 5.5 4.3 - 5.6 % Final Comment: [place] Diabetes Association guidelines indicate that patients with HgbA1c in the range 5.7-6.4% are at increased risk for development of diabetes, and intervention by lifestyle modification may be beneficial. HgbA1c greater or equal to 6.5% is considered diagnostic of diabetes. Vitamin B12 Date Value Ref Range Status 03/02/2007 998 (H) 221 - 700 pg/mL Final DANIEL Date Value Ref Range Status 11/12/2021 Negative Negative Final Comment: Anti-nuclear antibody test is used as an aid in diagnosis of systemic autoimmune diseases. Where positive and clinically warranted, follow-up using disease- specific testing is recommended. Low positive titers are not uncommon with advanced age, certain chronic infections, and malignancies among others. Test methodology: Indirect fluorescence immunoassay (IFA) using HEp-2 cells. Other studies: EMG 08/05/22, data reviewed. Extensive electrodiagnostic examination of the left lower extremity is somewhat limited by reduced activation in three of eight muscles. Thismay be due to pain, resulting in incomplete motor unit potential activation, or (less likely) due to a central activation process. However withinthese parameters, the examination is otherwise normal. In particular, there is no clear evidence of a left L3-S1 lumbosacral radiculopathy as proximal muscles demonstrate normal motor unit morphology and recruitment pattern.The left abductor hallucis and extensor digitorum brevis muscles do demonstrate chronic, neurogenic motor unit potentials. The presence ofchronic neurogenic motor unit potential changes limi valentin to intrinsic foot muscles such as this is of unclear clinical significance in isolation, and maybe related to local foot trauma secondary to shoe wear. Assessment/Plan : Chronic left lower back pain radiating down left leg > 10 years in duration. Normal neurologic exam Recent emg without evidence of compression neuropathy, radiculopathy, PN in LLE, decreased muscle activation Prior hx of multifocal pain symptoms Current anxiety and insomnia, on clonazepam and quetiapine (weaning) MRI recently ordered by her chiropractor, she is looking for open facility, they will send images to our system for my review after study is done. She reports unremarkable MRI 5 years ago of the lumbar spine. We discussed that her symptoms are likely due to central pain sensitization. She has tried duloxetine, pregabalin in past, without relief She would like to try referral to health psychology for psychological techniques to manage her painsymptoms. Exercise and other wellness strategies encouraged. I will reach out to the health psychologist to facilitate a referral to the appropriate provider. documented [facility]23 Miscellaneous Notes* Telephone Encounter - Lynn Rodriguez Emg - 08/06/2022 2:12 PM EST Results from EMG performed on 08/05/22 were faxed to [facility] at fax number [phone] on 08/06/22. Fax confirmation received. documented in this encounter[facility]03-[facility]-2023 History of Present illness Narrative* Lori Patel DO - 08/05/2022 3:31 PM EST UNIVERSAL PROTOCOL / SAFETY CHECKLIST Procedure to be Performed: EMG Sign In: A Moment of CARE was completed. Personnel directly involved with the procedure wore the appropriate PPE (Personal Protective Equipment). Patient/Surrogate Stated/Verified: PATIENT VERIFIED(optional for EMERGENT procedures): Patient name, Date of , Relevant allergies, and The intended procedure Time Out Communication: Intended patient and procedure match the source documents. Correct side/site marked and visible. Sign Out: SIGN OUT (optional for EMERGENT procedures): Post-procedure follow-up management communicated and Plan of Care Visit completed when applicable. Salvatore Patiño NCST Lori Patel DO Staff Neurologist [facility] Neu[facility]ic [facility] documented in this encounter[facility] Center03-02-2023 Miscellaneous Notes* Telephone Encounter - Veronica Zapata LPN - 08/05/2022 1:27 PM EST [employer] sent over a denial of coverage for out of network provider, spoke to patient andshe was made aware and want to keep appointment anyways. Forms sent for scanning in chart. documented in this encounterU[facility] Center06-27-2022 Miscellaneous Notes* Telephone Encounter - Latoya Clement PA-C - 11/30/2021 11:52 AM EDT I sent to [facility] now. * Telephone Encounter - Maureen Martinez RN - 11/30/2021 11:23 AM EDT Patient was seen in [facility] today and is calling to ask if Latoya Clement in [facility] would send Keflex and Bacitracin opth.ointment scripts to [facility] in [place]? She states she may have accidentally told Latoya to send it to [facility] but does not use that pharmacy anymore. Thank you. Maureen Martinez RN documented in this encounterUc Medical Center06-27-2022 History of Present illness Narrative* Latoya Clement PA-C - 11/30/2021 10:10 AM EDT Images from the original note were not included. This note was created using [employer]. Subjective Veronica Umaña is a 46 year old female. HPI Patient presents with right upper eyelid swelling since last night. She had COVID about a week ago and did have some sinus pressure and pain from that. She states she has had sinusitis chronically previously and has had sinus surgeries. She does not wear contacts. Denies any injury to her eye. She was rubbing it a little bit because her eye was bothering her when she had COVID. No fever. Review of Systems Constitutional: Negative. HENT: Positive for sinus pain. Negative for congestion and ear pain. Eyes: Negative for discharge, redness and visual disturbance. Right upper eyelid swelling Respiratory: Negative. Cardiovascular: Negative. Gastrointestinal: Negative. Genitourinary: Negative. Musculoskeletal: Negative. All other systems reviewed and are negative. PAST MEDICAL HISTORY Diagnosis Date Chronic interstitial cystitis resolved Yesica-Danlos syndrome type III Miscarriage 4 Miscarriages Other forms of migraine resolved PTSD (post-traumatic stress disorder) Rosacea Unspecified hypothyroidism Current Outpatient Medications Medication Sig Dispense Refill Magnesium Citrate 150mg 90 ct. (Pure Encapsulations) Take 3 capsules daily. Magnesium Glycinate 120mg 3 at night Stress, blood sugar, thyroid/hormones/adrenals/sleep/energy/toxins/muscles/constipation/asthma Work up to 3 capsules with meals at night - can cause loose stools 0 metoprolol succinate ER (TOPROL XL) 25 mg 24 hr tablet Take 50 mg by mouth once daily. QUEtiapine 50 mg tablet Take 12 mg by mouth daily at bedtime. traMADOL 50 mg ORAL Tab as necessary.Take one(1) tablet as needed 0 clonazepam (KLONOPIN) 0.5 mg ORAL Tab Take one(1) tablet daily 0 bacitracin ophthalmic ophthalmic ointment Use 1 application in the right eye three times daily for 5 days. 3.5 g 0 cephALEXin (KEFLEX) 500 mg capsule Take 1 capsule by mouth three times daily for 5 days. 15 capsule0 GI-Revive 225 gram Powder (CitizenDish) Take 1 tablespoons twice daily (1 tablespoon = 1.5 grams L-glut) (Patient not taking: Reported on 11/30/2021 ) phenazopyridine (PYRIDIUM) 200 mg tablet Take 1 tablet by mouth three times daily as needed. (Patient not taking: Reported on 11/30/2021 ) 20 tablet 0 TRETINOIN (RETIN-A TOPICAL) Apply to affected area. (Patient not taking: Reported on 11/30/2021 ) HYDROQUINONE TOPICAL Apply to affected area. (Patient not taking: Reported on 11/30/2021 ) No current facility-administered medications for this visit. PAST SURGICAL HISTORY Procedure Laterality Date BREAST AUGMENTATION WITH IMPLANT 1996 Breast augmentation DELIVERY ONLY , low transverse D&C (MISSED AB 1ST TRIMESTER) 01/08/14 in [place] PAST SURGICAL HISTORY OF lap left shoulder torn labrum repair TONSILLECTOMY PRIMARY/SECONDARY <AGE 10 2004 Tonsillectomy FAMILY HISTORY Problem Relation Age of Onset Breast Cancer Mother Hypertension Father other (Colon polyps) Father Breast Cancer Maternal Grandmother Diabetes Paternal Grandfather Colon Cancer Paternal Grandfather Hypertension Paternal Grandfather Hypertension Paternal Aunt Social History Tobacco Use Smoking status: Never Smoker Smokeless tobacco: Never Used Substance Use Topics Alcohol use: No Drug use: No Objective BP 120/68 Pulse 80 Temp 36.6 C (97.8 F) Resp 16 Wt 67 kg (147 lb 9.6 oz) LMP 10/24/2021 SpO2 96% BMI 22.44 kg/m Physical Exam Vitals reviewed. Constitutional: Appearance: Normal appearance. HENT: Head: Normocephalic and atraumatic. Eyes: Comments: Patient has mild redness and swelling to the right upper eyelid. An internal stye is visualized. No sign of orbital or periorbital cellulitis. Skin: General: Skin is warm and dry. Neurological: Mental Status: She is alert. Assessment and Plan ASSESSMENT/PLAN: 1. Hordeolum externum of right upper eyelid - ICD9: 373.11, ICD10: H00.011 Patient does have some mild redness and swelling of the upper eyelid, she is concerned for significant infection so I did place her on Keflex for 5 days. Discussed the importance of warm compresses. Red flags discussed. Patient agreeable. Latoya Clement PA-C documented in this encounterUc Medical Center06-22-2022 Miscellaneous Notes* Telephone Encounter - Lauren Aparicio - 11/25/2021 9:47 AM EDT faxed. Lauren Aparicio * Telephone Encounter - Elinor Jones LPN - 11/24/2021 11:29 AM EDT Pt reports she was in [facility] this morning to be seen and tested for Covid. Pt is requesting that results be faxed to Dr. Layne when they become available. Elinor Jones LPN documented in this encounterUc Medical Center06-21-2022 History of Present illness Narrative* Palak Velazco APRN.[employer] - 11/24/2021 11:02 AM EDT CC: Patient presents with: Cough: Pt reported +Covid exposure family member, SOB, denied chest pain Diarrhea: Pt denied blood, mucus Nausea, sore throat pain rated 5 x 4 days HPI: Veronica Umaña is a 46 year old female who presents to the office with complaint of cough, nonproductive, sore throat and fever for a few days. Symptoms are staying the same. Associated symptoms includes body aches. Denies facial pain/pressure and hoarse voice. Treatments tried include nothing so far. with no relief of symptoms. Sick contacts: unknown. History of asthma, frequent episodes of bronchitis, chronic bronchitis, bronchiectasis or COPD: No Smoker: No Seasonal/environmental allergies: No The ROS is otherwise negative. The patient's pmh, medications, allergies, and past visits are reviewed. PHYSICAL EXAM: BP 126/74 Pulse 104 Temp 36.6 C (97.8 F) Resp 18 Wt 68 kg (150 lb) LMP 10/24/2021 SpO2 98% BMI 22.81 kg/m General appearance: alert, cooperative, pleasant, in no acute distress Head: Normocephalic Eyes: EOM's intact, conjunctiva pink and moist, no icterus, sclera white, non-injected Ears: Right ear: External ear/canal- Normal, TM - clear with good landmarks. Left ear: External ear/canal- Normal, TM - clear with good landmarks Heart: Negative. RRR without obvious murmur, gallop, or rubs. No ectopy. Lungs: clear to auscultation, without rales or wheeze, good air exchange PAST MEDICAL HISTORY Diagnosis Date Chronic interstitial cystitis resolved Yesica-Danlos syndrome type III Miscarriage 4 Miscarriages Other forms of migraine resolved PTSD (post-traumatic stress disorder) Rosacea Unspecified hypothyroidism PAST SURGICAL HISTORY Procedure Laterality Date BREAST AUGMENTATION WITH IMPLANT 1996 Breast augmentation DELIVERY ONLY , low transverse D&C (MISSED AB 1ST TRIMESTER) 01/08/14 in [place] PAST SURGICAL HISTORY OF lap left shoulder torn labrum repair TONSILLECTOMY PRIMARY/SECONDARY <AGE 10 2004 Tonsillectomy ALLERGIES Cipro [Ciprofloxacin], Cymbalta [Duloxetine], Levoquin [Levofloxacin], Paba [P-Aminobenzoic Acid], Sulfa (Sulfonamide Antibiotics), and Z Pack [Azithromycin] MEDICATIONS Magnesium Citrate 150mg 90 ct. (Pure Encapsulations) Take 3 capsules daily. GI-Revive 225 gram Powder (CitizenDish) Take 1 tablespoons twice daily (1 tablespoon = 1.5 grams L-glut) Magnesium Glycinate 120mg 3 at night Stress, blood sugar, thyroid/hormones/adrenals/sleep/energy/toxins/muscles/constipation/asthma Work up to 3 capsules with meals at night - can cause loose stools phenazopyridine (PYRIDIUM) 200 mg tablet Take 1 tablet by mouth three times daily as needed. metoprolol succinate ER (TOPROL XL) 25 mg 24 hr tablet Take 50 mg by mouth once daily. TRETINOIN (RETIN-A TOPICAL) Apply to affected area. HYDROQUINONE TOPICAL Apply to affected area. QUEtiapine 50 mg tablet Take 20 mg by mouth daily at bedtime. traMADOL 50 mg ORAL Tab as necessary.Take one(1) tablet as needed clonazepam (KLONOPIN) 0.5 mg ORAL Tab Take one(1) tablet daily FAMILY HISTORY Problem Relation Age of Onset Breast Cancer Mother Hypertension Father other (Colon polyps) Father Breast Cancer Maternal Grandmother Diabetes Paternal Grandfather Colon Cancer Paternal Grandfather Hypertension Paternal Grandfather Hypertension Paternal Aunt Social History Tobacco Use Smoking status: Never Smoker Smokeless tobacco: Never Used Substance Use Topics Alcohol use: No Drug use: No ASSESSMENT/PLAN: 1. Close exposure to COVID-19 virus - ICD9: V01.79, ICD10: Z20.822 - COVID WITH FLUA+B, ROUTINE Prescription instructions reviewed with patient as applicable. Potential red flag symptoms discussed with the patient. Reviewed appropriate action plan to take if red flag symptoms occur. Patient agreeable to treatment plan. Palak Velazco APRN.CNP documented in this encounterCleveland ClinicDischarge summary Author Jose Alexis [facility] Note Date/Time October 31, 2024 12:00 pm [facility] Medical Records Department [address] [place] [address] Emergency Department Summary 10/31/24 MR#: [id number] Acct: [id number] Name: VERONICA UMAÑA Rep #:[id number] : 1975 49 From: Jose Alexis MD PCP: lEinor Aguilar NP-C Status:RE G ER Location: ED HPI History of Present Illness Chief Complaint: General Illness Narrative Narrative: 49-year-old female presents with concern for allergic reaction versus polypharmacy. She stated that she thinks that she is having a serotonin syndrome. She is also on multiple medications. She takes cyclobenzaprine, clonazepam, gabapentin, and metoprolol for hypertension. She states that she was started on naltrexone as well as ivermectin. Of note she was seen in the emergency department last week on , approximately 6 days ago where she was concerned that she was having an allergic type reaction. She states she wakes up with dry mouth and feeling tense. Additionally, she feels her heart racing. Her blood pressure is elevated at times. She states that she woke up with a pink rash all over. She is concerned that with her polypharmacy, she stopped taking her medications, and that she might need observation to make sureshe does not have a seizure. 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 [facility] Medical History Fear of travel with panic attacks Tachycardia Fatigue Vitamin D deficiency Anxiety Fluctuating blood pressure Intermittent palpitations SOB (shortness of breath) Abnormal finding on thyroid function test Dyspareunia Urge incontinence Urinary tract infection Hypertension Neck pain Back pain Insomnia Home Medications ?Medication ?Instructions ?Recorded ?Last Taken ?Type tramadol 50 mg tablet 50 mg PO DAILY 02/28/19 Unkn own History clonazepam 0.5 mg tablet 0.5 mg PO QHS 09/10/2210/26 History metoprolol succinate 25 mg 25 mg PO BID 09/10/22 Unkno wn History tablet,extended release 24 hr cyclobenzaprine 10 mg tablet 10 mg PO TID 10/26/24 Unk nown History gabapentin 100 mg capsule 100 - 200 mg PO DAILY PRN pa in 10/26/24 Unknown History Allergy/AdvReac Type Severity Reaction Status Date / Time Quinolones Allergy Hives Verified 10/31/24 07:24 Sulfa (Sulfonamide Allergy Hives Verified 10/31/24 07:24 Antibiotics) azithromycin (From Zithromax AdvReac Upset Verified 10/31/24 07:24 Z-Boubacar) Stomach Family History Father Hypertension Yesica-Danlos syndrome Mother Breast cancer Hypertension Grandfather Heart disease Diabetes Hypertension CVA (cerebral vascular accident) Grandmother Hypertension Thyroid disorder Breast cancer CVA (cerebral vascular accident) Aunt Thyroid disorder CVA (cerebral vascular accident) Yesica-Danlos syndrome Surgical History Status post glaucoma surgery S/P S/P sinus surgery s/p left shoulder surgery Social History Smoking Status: Never smoker alcohol intake: current details: occasionally substance use type: does not use caffeine: Yes what type of physical activity do you participate in: walking frequency: 3-4 times per week duration: 15-30 minutes/day seatbelt use: always do you feel safe at home: Yes additional social history: Lzricfd-Igzwk-Lawpmyjxnrzs 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 HEENT: No sore throat. No neck pain. Positive dry mouth no rhinorrhea. Cardiovascular: No chest pain. Positive palpitations. No pedal edema. Respiratory: No cough, no shortness of breath. Abdominal: No abdominal pain. No nausea. No vomiting. Genitourinary: No dysuria. No hematuria. Musculoskeletal: No myalgias. No arthralgias. Positive muscle contractions. Neurologic: No headaches. No dizziness. No lightheadedness. Skin: Reported pink rash. No change in color. Psychiatric: No depression. No anxiety. EXAM Physical Exam Narrative Exam Narrative: Afebrile. Vital signs noted. Nontoxic-appearing. Cardiovascular semination reveals mild tachycardia. Lungs are clear to auscultation bilaterally. Abdomenis soft and nontender without guarding or rebound. Neurological examination nonfocal, nonlateralizing. Able to transfer to and from cot. Able to stand andwalk in emergency department. Psychiatric examination reveals positive anxiety and positive flight of ideas. Const Vital Signs: 10/31/24 07:20 10/31/24 07:27 10/31/24 09:20 Temperature 98.4 F Temperature Source Oral Pulse Rate 107 H 88 Respiratory Rate 20 H 19 H Respiratory Pattern Tachypnea Blood Pressure 185/101 H 143/94 H Blood Pressure Mean 129 110 Pulse Ox 98 98 Oxygen Delivery Method Room Air 10/31/24 11:00 Temperature Temperature Source Pulse Rate 114 H Respiratory Rate 20 H Respiratory Pattern Blood Pressure 157/81 H Blood Pressure Mean 106 Pulse Ox 18 Oxygen Delivery Method Room Air MDM MDM MDM Narrative Medical decision making narrative: The differential diagnosis does include but not limited to panic attack versus medication reaction versus anxiety. I have low suspicion for serotonin syndromeas she states she has not been taking her medications for the last few days. I reviewed her prior records. She had basic laboratory work. She states that shewants to be checked to make sure that she is not to have a seizure. She states additionally that she was told not to take her benzodiazepines but to continue her metoprolol. Interpretation of her EKG by myself independently demonstrates normal sinus rhythm at 90 bpm without ectopy or acute ST changes. No STEMI. I reviewed her laboratory work, and she has normal white count of 9.4 with hemoglobin 13.5, hematocrit 38.9, platelet count 314. CMP shows creatinine low at 0.60 LFTs grossly unremarkable. Serum is negative. Urine for drugs of abuse isalso negative. Alcohol level is negative as well. Her repeat blood pressure was low at 143 systolic. At rest, she is not tachycardic. She becomes anxious as she still feels that she is having serotonin syndrome. However, I do not feel that she has serotoninsyndrome and that she is afebrile here as well so she does not have neuroleptic malignant syndrome. I feel this is all related to anxiety. I attempted to explain to her that she is not meeting observation criteria, but she was almost insistent that I discuss her case with the hospitalist. I did discuss patient with Dr. Forrest and it was agreed that she is going through benzodiazepine withdrawal as she is only on 0.5 mg nightly, and she is not in serotonin syndrome currently.. In discussion with the patient, she states that she is agreeable to discharge and that she is going to follow-up with Dr. Layne who isone of her providers. I do feel that she can be discharged to follow-up as she is not meeting any observation or admission criteria currently. Disposition is discharged in stable condition. History & Record Review Discussion w/independent historian: Patient Additional record(s) reviewed:: Prior ED visit and Prior labs Lab Data Attestation: I reviewed the patient's lab results. Labs: Laboratory Results - last 24 hr 10/31/24 10/31/24 07:42 08:21 WBC 9.4 RBC 4.19 L Hgb 13.5 Hct 38.9 MCV 92.8 MCH 32.2 H MCHC 34.7 RDW Std Deviation 42.2 RDW Coeff of Prem 12.6 Plt Count 314 MPV 9.9 Immature Gran % (Auto) 0.500 Neut % (Auto) 74.6 H Lymph % (Auto) 16.8 L [place] % (Auto) 7.4 Eos % (Auto) 0.1 Baso % (Auto) 0.6 Absolute Neuts (auto) 7.0 Absolute Lymphs (auto) 1.57 Nucleated RBC % 0 Sodium 137 Potassium 3.8 Chloride 101 Carbon Dioxide 23.6 Anion Gap 12 BUN 9 Creatinine 0.60 L Estim Creat Clear Calc 116.86 Est GFR (MDRD) Non-Af 108 BUN/Creatinine Ratio 14.4 Glucose 133 H Calcium 9.7 Total Bilirubin 0.86 AST 22 ALT 33 Alkaline Phosphatase 65 Total Protein 7.1 Albumin 4.6 Globulin 2.5 Albumin/Globulin Ratio 1.8 Serum , Qual NEGATIVE Urine Opiates Screen NEGATIVE U Buprenorphine Qual NEGATIVE Ur Oxycodone Screen NEGATIVE Urine Methadone Screen NEGATIVE Urine Fentanyl Screen NEGATIVE Ur Barbiturates Screen NEGATIVE Ur Phencyclidine Scrn NEGATIVE Ur Amphetamines Screen NEGATIVE U Benzodiazepines Scrn NEGATIVE Urine Cocaine Screen NEGATIVE U Cannabinoids Screen NEGATIVE Ethyl Alcohol < 10.1 Discharge Plan Triage Chief Complaint: General Illness Other Complaint: Anxiety ED Provider: Jose Alexis Dx/Rx/DC Orders Clinical Impression: Anxiety, Hypertension, Palpitations Instructions: ED Anxiety Reaction, ED High Blood Pressure Hypertension Prescriptions: No Action tramadol 50 mg tablet 50 mg PO DAILY metoprolol succinate 25 mg tablet extended release 24 hr 25 mg PO BID Patient Comments: take 1 tablet by mouth twice a day clonazepam 0.5 mg tablet 0.5 mg PO QHS Patient Comments: take 1 tablet by mouth at bedtime MAY USE 1 ADDITIONAL TABLET NEEDED DURING THE DAY cyclobenzaprine 10 mg tablet 10 mg PO TID gabapentin 100 mg capsule 100 - 200 mg PO DAILY PRN (Reason: pain) Primary Care Provider: Elinor Aguilar NP Referrals: Elinor Aguilar PLATFORM MATERIAL HANDLER MANAGER, PLATFORM MATERIAL HANDLER MANAGER-C [Primary Care Provider] - As soon as possible Activity Restrictions/Additional Instructions: Follow-up with your primary care provider. Make sure you are taking your antihypertensives especially your metoprolol. Print Language: Djiboutian Disposition Disposition: Home, Self Care What to do if you have Problems For any increased pain, shortness of breath, bleeding, nausea or vomiting, chestpain, or any unexpected problems, contact your Primary Care Provider. Call [facility] ([phone]) or report to the closest Emergency Room. Call 911 if necessary. 10/31/24 1200 <Electronically signed by Jose Alexis MD> Cosigner Signature (if applicable): CC: PLATFORM MATERIAL HANDLER MANAGER-C Elinor Aguilar ~ Signed [facility] Work Phone: Evaluation noteNo assessment information available [facility] Work Phone: evaluation note* Diagnosis Close exposure to COVID-19 virus- Primary [facility]* Diagnosis Hordeolum externum of right upper eyelid- Primary Hordeolum externum [facility]* Diagnosis Chronic left-sided lumbar radiculopathy- Primary [facility]* Diagnosis Pain in left leg- Primary Chronic left-sided lumbar radiculopathy [facility]* Diagnosis Chronic left-sided low back pain with left-sided sciatica- Primary [facility]* Diagnosis Onset Date Resolution Status Inclusion cyst of vulva none active Vaginitis noneactive [facility] Work Phone: Evaluation note* Diagnosis Paronychia of great toe of right foot- Primary Onychia and paronychia of toe Pediculosis capitis Pediculus capitis (head louse) documented in this encounter [facility] Discharge instructions Additional Instructions Follow-up with your primary care provider. Make sure you are taking your antihypertensives especially your metoprolol.[facility] Work Phone: [facility] Outpatient Procedure (Routine) - Pending Review Specialty Diagnoses / Procedures Referred By Contac t Referred To [facility] Diagnoses Chronic left-sided lumbar radiculopathy Procedures EMG(NEURO/NI) NERVE CONDUCTION STUDIES 9-10 STUDIES Priscila Umaña [address] [place] [address] Neurological Elizabeth [address] [place] [address] Referral ID Status Reason Start Date Expiration Date Visits Requested Visits Authorized [id number] Pending Review Auto-Generat ed Referral 07/20/2022 07/20/2023 1 1 [facility] for referral (narrative)No reason for referral information availableWPremier [facility] Work Phone: Summary Purpose Family History No Family History Records Found Relationship Condition Age at Onset Recorded Date/T emile father Hypertension Unknown mother Malignant neoplasm of breast Unknown grandfather Malignant neoplasm of breast Unknown Cardiac disease Unknown Diabetes mellitus Unknown Relationship Condition Age at Onset Recorded Date/T emile father Hypertension Unknown Yesica-Danlos syndrome Unknown mother Malignant neoplasm of breast Unknown Hypertension Unknown grandfather Cardiac disease Unknown Diabetes mellitus Unknown Cerebrovascular accident (CVA) Unknown grandmother Hypertension Unknown Disorder of thyroid Unknown Malignant neoplasm of breast Unknown aunt Disorder of thyroid Unknown Advance Directives No Advanced Directives Records Found Advance Directive Response Recorded Date/ Time Living Will Yes August 24, 2021 2:50pm Power of Tree Scout No August 24 2:50pm Advance Directive Response Recorded Date/ Time Living Will Yes November 07, 2021 5 :40pm Power of Tree Scout Yes November 07, 2021 5:40pm Advance Directive Response Recorded Date/ Time Living Will Yes November 07, 2021 4 :40pm Power of Tree Scout Yes November 07, 2021 4:40pm Advance Directive Response Recorded Date/ Time Do you have a Healthcare Power of Tree Scout? No October 31, 2024 7:27am Do you have a Healthcare Power of Tree Scout? No October 26, 2024 5:30am Advance Directive Response Recorded Date/ Time Do you have a Healthcare Power of Tree Scout? No October 31, 2024 7:27am Do you have a Healthcare Power of Tree Scout? No November 05, 2024 3:35pm Do you have a Healthcare Power of Tree Scout? No October 26, 2024 5:30am Chief Complaint and Reason for Visit Chief Complaint LEFT LEG PAIN Chief Complaint LEFT LEG PAIN left leg pain Chief Complaint LEFT LEG PAIN left leg pain VASCULAR CLAUDICATION BILAT LOWER EXT Chief Complaint LEFT LEG SWELLING Chief Complaint LEFT LEG SWELLING L ACL PT HAS RX Chief Complaint LEFT LEG SWELLING SCREENING L ACL PT HAS RX Chief Complaint SCREENING PELVIC FLOOR; L ACL PT HAS RX Chief Complaint PELVIC FLOOR; L ACL PT HAS RX Chief Complaint vaginal lumps per SM Reason for Visit Inclusion cyst of vu lva Vaginitis Chief Complaint Admit Date allergic reaction October 26, 2024 5:27a m general illness October 31, 2024 7:18a m Chief Complaint Admit Date allergic reaction October 26, 2024 5:27a m general illness October 31, 2024 7:18a m CHEST PAIN November 05, 2024 3:28p m Health Concerns Infection Onset Date Last Indicated Resolved Time COVID-19 Rule-Out 11/24/2021 11/24/2021 Infection Onset Date Last Indicated Resolved Time COVID-19 Rule-Out 11/24/2021 11/24/2021 11/25/2021 2:26 AM EDT COVID-19 Confirmed 11/24/2021 11/24/2021 Infection Onset Date Last Indicated Resolved Time COVID-19 Confirmed 11/24/2021 11/24/2021 Additional Source Comments INFORMATION SOURCE (unrecogn ized section and content) DATE CREATED AUTHOR 10/19/2020 [facility] DATE CREATED AUTHOR AUTHOR'S ORGANIZ ATION 11/17/2023 [facility] DATE CREATED AUTHOR AUTHOR'S ORGANIZ ATION [facility]/17[facility]2024 [facility] DATE CREATED AUTHOR AUTHOR'S ORGANIZ ATION 11/24/2024 [facility] Goals (unrecognized section and content) Goals may be documented in a n alternate sectionGoals may be documented in an alternate sectionGoals may be documented in an alternate sectionGoals may be documented in an alternate sectionGoals may be documented in an alternate sectionGoals may be documented in an alternate sectionGoals may be documented in an alternate sectionGoals may be documented in an alternate sectionGoals may be documented in an alternate sectionGoals may be documented in an alternate sectionGoals may be documented in an alternate sectionGoals may be documented in an alternate sectionGoals may be documented in an alternate sectionGoals may be documented in an alternate section Source Comments (unrecognize d section and content) In the event this informatio n is protected by the Federal Confidentiality of Alcohol and Drug Abuse Patient Records regulations: The Federal rules restrict any use of the information to criminally investigate or prosecute any alcohol or drug abuse patient.[facility] the event this information is protected by the Federal Confidentiality of Alcohol and Drug Abuse Patient Records regulations: The Federal rules restrict any use of the information to criminally investigate or prosecute any alcohol or drug abuse patient.[facility] Center[facility] the event this information is protected by the Federal Confidentiality of Alcohol and Drug Abuse Patient Records regulations: The Federal rules restrict any use of the information to criminally investigate or prosecute any alcohol or drug abuse patient.[facility] the event this information is protected by the Federal Confidentiality of Alcohol and Drug Abuse Patient Records regulations: The Federal rules restrict any use of the information to criminally investigate or prosecute any alcohol or drug abuse patient.[facility] Center[facility] the event this information is protected by the Federal Confidentiality of Alcohol and Drug Abuse Patient Records regulations: The Federal rules restrict any use of the information to criminally investigate or prosecute any alcohol or drug abuse patient.[facility] the event this information is protected by the Federal Confidentiality of Alcohol and Drug Abuse Patient Records regulations: The Federal rules restrict any use of the information to criminally investigate or prosecute any alcohol or drug abuse patient.[facility] Center[facility] the event this information is protected by the Federal Confidentiality of Alcohol and Drug Abuse Patient Records regulations: The Federal rules restrict any use of the information to criminally investigate or prosecute any alcohol or drug abuse patient.[facility] Center[facility] the event this information is protected by the Federal Confidentiality of Alcohol and Drug Abuse Patient Records regulations: The Federal rules restrict any use of the information to criminally investigate or prosecute any alcohol or drug abuse patient.[facility] CenterIn the event this information is protected by the Federal Confidentiality of Alcohol and Drug Abuse Patient Records regulations: The Federal rules restrict any use of the information to criminally investigate or prosecute any alcohol or drug abuse patient.[facility] Center[facility] the event this information is protected by the Federal Confidentiality of Alcohol and Drug Abuse Patient Records regulations: The Federal rules restrict any use of the information to criminally investigate or prosecute any alcohol or drug abuse patient.[facility] CenterIn the event this information is protected by the Federal Confidentiality of Alcohol and Drug Abuse Patient Records regulations: The Federal rules restrict any use of the information to criminally investigate or prosecute any alcohol or drug abuse patient.[facility] Reason for Visit (unrecogniz ed section and content) Reason Comments Eye Problem right eye swelling a nd pain x last night Specialty Diagnoses / Procedures Referred By Mariaelena conrad Referred To Contact Family Practice / [facility] Diagnoses sore throat, fever, fatigue, chills and bodyaches Procedures OFFICE/OUTPATIENT ESTABLISHED MOD MDM 30-39 MIN EST SAME DAY Self Palak Velazco APRN.[employer] [address] [place] [address] Referral ID Status Reason Start Date Expiration Date Visits Re quested Visits Authorized [id number] Closed 06/06/2021 06/05/2022 2 2 Reason Comments Cough Pt reported +Covid e xposure family member, SOB, denied chest pain Diarrhea Pt denied blood, muc us Nausea, sore throat pain rated 5 x 4 days Referral ID Status Reason Start Date Expiration Date Visits Re quested Visits Authorized [id number] Closed 06/06/2021 06/05/2022 1 1 Reason Comments Results Reason Comments Prescription Request to Different Pharma cy Reason Comments Forms [employer] Reason Onset Date Comments EMG 08/05/2022 Specialty Diagnoses / Procedures Referred By Mariaelena conrad Referred To Contact Neurology / NEUROMUSCULAR Diagnoses Muscle weakness MUSCLE WEAKNESS Procedures OFFICE/OUTPATIENT NEW MODERATE MDM 45-59 MINUTES NEW NEUROMUSC PAIN [facility] [address] [place] [address] Armando Paredes MD [address] [facility] [address] [place] [address] Referral ID Status Reason Start Date Expiration Date V isits Requested Visits Authorized [id number] Authorized 07/22/2022 07/22/2023 20 20 Reason Comments Faxed EMG Results Reason Comments New Patient Weakness Pain, weakness, burn ing, numbness tingling pinpricks constant since 2009, muscle atrophy, progressively worsening Reason Comments Eye Problem Right eye swelling a nd right big toe pain-from pedicure yesterday Care Teams (unrecognized sec tion and content) Product Development Assistant Relationship Specialty Start Date End Date Natividad Yee PA-C PCP - General Family Practice 10/21/16 Natividad Yee PA-C Referring Family Practice 01/30/20 Product Development Assistant Relationship Specialty Start Date End Date Natividad Yee PA-C PCP - General Family Practice 10/21/16 Natividad Yee PA-C Referring Family Practice 01/30/20 Team Status: Active Member Role Status Mami COMBS PA-C Family Provider Active Natividadyevgeniy COMBS PA-C Primary Care Provider Active Team Status: Active Member Role Status Mami COMBS PARadha Primary Care Provider Active Dr. Pedro Eckert MD Attending Provider Active Team Status: Inactive Member Role Status Mami COMBS PA-C Primary Care Provider Active Dr. Priscila Umaña MD Attending Provider Active Product Development Assistant Relationship Specialty Start Date End Date Natividad Yee PA-C PCP - General Family Medicine 10/21/16 Natividad Yee PA-C Referring Family Medicine 01/30/20 Team Status: Active Member Role Status Mami COMBS PA-C Primary Care Provider Active Dr. Pedro Eckert MD Attending Provider Active Dr. Priscila Umaña MD Referring Provider Active Team Status: Active Member Role Status Mami COMBS PAIanC Primary Care Provider Active DANIELLE NAVA Attending Provider, Referring Provid er Active Team Status: Inactive Member Role Status Mami COMBS PARadha Primary Care Provider Active Dr. Gloria Layne MD Attending Provider, Referring Pr ovider Active Product Development Assistant Relationship Specialty Start Date End Date NakiaKeiraNatividadellen Ferro PA-C PCP - General Family Medicine 10/21/16 Natividad Yee PA-C Referring Family Medicine 01/30/20 Product Development Assistant Relationship Specialty Start Date End Date Nakia Natividadellen Ferro PA-C PCP - General Family Medicine 10/21/16 Natividad Yee PA-C Referring Family Medicine 01/30/20 Product Development Assistant Relationship Specialty Start Date End Date Nakia Natividadellen Ferro PA-C PCP - General Family Medicine 10/21/16 Natividad Yee PA-C Referring Family Medicine 01/30/20 Product Development Assistant Relationship Specialty Start Date End Date Nakia Natividadellen Ferro PA-C PCP - General Family Medicine 10/21/16 Natividad Yee PA-C Referring Family Medicine 01/30/20 Team Status: Inactive Member Role Status Dates [facility] JANNETH COMBS Primary Care Provider Active Dr. Gloria Layne MD Attending Provider Active Team Status: Inactive Member Role Status Dates [facility] JANNETH COMBS Primary Care Pro vider, Attending Provider, Referring Provider Active Team Status: Inactive Member Role Status Dates [facility] JANNETH COMBS Primary Care Provider Active DANIELLE NAVA Referring Provider Active Dr. Meg Sadler MD Attending Provider Active Team Status: Inactive Member Role Status Dates [facility] JANNETH COMBS Primary Care Provider, Referri ng Provider Active Charlette Barkman , PLATFORM MATERIAL HANDLER MANAGER-C Attending Provider Active Team Status: Inactive Member Role Status Dates Natividad COMBS PA-C Primary Care Provider Active ALEJA FatimaC Attending Provider, Referring Eliecer knight Active Product Development Assistant Relationship Specialty Start Date End Date Natividad Yee PA-C PCP - General Family Medicine 10/21/16 Natividad Yee PA-C Referring Family Medicine 01/30/20 Team Status: Inactive Member Role Status Dates Natividad COMBS PA-C Primary Care Provider Active Start: September 06, 2024 End: September 06, 2024 Elinor Aguilar NP, PLATFORM MATERIAL HANDLER MANAGER-C Attending Provider Active Start: September 06, 2024 End: September 06, 2024 Elinor Aguilar NP, PLATFORM MATERIAL HANDLER MANAGER-C Referring Provider Active Start: September 06, 2024 End: September 06, 2024 Team Status: Active Member Role Status Dates Elinor Aguilar NP, PLATFORM MATERIAL HANDLER MANAGER-C Primary Care Provider Activ e Team Status: Inactive Member Role Status Dates Dr. Ramesh Coffey DO Emergency Provider Active Start: October 26, 2024 End: October 26, 2024 Elinor Aguilar NP, PLATFORM MATERIAL HANDLER MANAGER-C Primary Care Provider Activ e Start: October 26, 2024 End: October 26, 2024 Team Status: Inactive Member Role Status Dates Elinor Aguilar NP, PLATFORM MATERIAL HANDLER MANAGER-C Primary Care Provider Activ e Start: October 31, 2024 End: October 31, 2024 Jose Alexis MD Emergency Provider Active Star t: October 31, 2024 End: October 31, 2024 Team Status: Active Member Role Status Dates No Primary Care Physician Primary Care Provider Active Team Status: Inactive Member Role Status Dates Dr. Ramesh Coffey DO Attending Provider Active Start: October 26, 2024 End: October 26, 2024 Dr. Ramesh Coffey DO Emergency Provider Active Start: October 26, 2024 End: October 26, 2024 Elinor Aguilar NP, PLATFORM MATERIAL HANDLER MANAGER-C Primary Care Provider Activ e Start: October 26, 2024 End: October 26, 2024 Team Status: Inactive Member Role Status Dates Dr. Victor Hugo Suh DO Referring Provider Activ e Start: November 05, 2024 End: November 05, 2024 Dr. Victor Hugo Suh DO Emergency Provider Activ e Start: November 05, 2024 End: November 05, 2024 No Primary Care Physician Primary Care Provider Active Start: November 05, 2024 End: November 05, 2024 FOR RECORDS PERTAINING TO PATIENTS WHO ARE OR HAVE BEEN ENROLLED IN A CHEMICAL DEPENDENCY/SUBSTANCEABUSE PROGRAM, SOME INFORMATION MAY BE OMITTED. This clinical summary was aggregated from multiple sources. Caution should be exercised in using it in the provision of clinical care. This summary normalizes information from multiple sources, and as a consequence, information in this document may materially change the coding, format and clinical context of patient data. In addition, data may be omitted in some cases. CLINICAL DECISIONS SHOULD BE BASED ON THE PRIMARY CLINICAL RECORDS. [employer] [facility]. provides no warranty or guarantee of the accuracy or completeness of information in this document.
--- NOTE | 2024-11-27 07:07 | ECHOD_ITS ---
Reason For Study Reason For Study: HYPERTENSION Procedure This was a 2D Doppler, Color Flow transthoracic echocardiogram. Myocardial strain analysis was performed in this exam to aid in the assessment of cardiac function. The study was technically difficult. Exam performed in department. Left Ventricle Normal LV size. Left ventricular systolic function is normal. The left ventricular ejection fraction is 60 %. No regional wall motion abnormalities noted. Right Ventricle Normal RV size. Normal systolic function. Atria Normal left atrium. Normal right atrium. Mitral Valve Normal mitral valve. Tricuspid Valve Normal tricuspid valve. Aortic Valve Trisinus/trileaflet aortic valve. Pulmonic Valve Normal pulmonic valve. Great Vessels Normal aortic root. The pulmonary artery is normal size. Inferior vena cava collapse with respiration. Pericardium/Pleural No pericardial effusion. MMode/2D Measurements & Calculations LVIDd: 4.9 cm IVSd: 0.93 cm Ao root diam: 2.7 cm LVIDs: 3.0 cm LVPWd: 0.93 cm RVDd: 3.0 cm FS: 39.0 % LAV(MOD-bp): 50.1 ml LVAd ap4: 26.1 cm2 SV(MOD-sp4): 49.7 ml LAV(MOD-bp) Indexed: 26.9 ml/m2 LVLd ap4: 7.9 cm SI(MOD-sp4): 26.7 ml/m2 LAV(MOD-sp2): 48.2 ml EDV(MOD-sp4): 74.6 ml LAV(MOD-sp4): 48.1 ml EDV(sp4-el): 73.4 ml LVAs ap4: 13.3 cm2 LVLs ap4: 6.5 cm ESV(MOD-sp4): 24.9 ml ESV(sp4-el): 23.2 ml EF(MOD-sp4): 66.7 % EF(sp4-el): 68.5 % SV(sp4-el): 50.3 ml LA A4 area: 16.7 cm2 LA dimension(2D): 3.5 cm RA A4 area: 11.2 cm2 TAPSE: 2.3 cm Time Measurements MV dec time: 0.18 sec Doppler Measurements & Calculations MV E max tam: 76.6 cm/sec Lat Peak E' Tam: 13.0 cm/sec Med Peak E' Tam: 12.7 cm/sec MV A max tam: 73.2 cm/sec E/E' lat: 5.9 E/E' med: 6.0 MV E/A: 1.0 MV V2 max: 77.6 cm/sec MV P1/2t max tam: 80.2 cm/sec Ao V2 max: 145.1 cm/sec MV max P.4 mmHg MV P1/2t: 67.2 msec Ao max P.4 mmHg MV V2 mean: 52.0 cm/sec Ao V2 mean: 91.6 cm/sec MV mean P.2 mmHg MV dec slope: 349.8 cm/sec2 Ao mean P.0 mmHg MV V2 VTI: 24.2 cm MVA(P1/2t): 3.3 cm2 Ao V2 VTI: 26.5 cm AV (velocity ratio): 0.67 LV V1 max: 87.1 cm/sec PA V2 max: 101.9 cm/sec LV V1 max P.0 mmHg PA V2 mean: 70.8 cm/sec LV V1 mean P.5 mmHg PA V2 VTI: 17.0 cm LV V1 mean: 58.1 cm/sec LV V1 VTI: 17.8 cm ECHO/Echo Complete Interpretation Summary Normal LV size. Left ventricular systolic function is normal. The left ventricular ejection fraction is 60 %. The global longitudinal strain is normal. The global longitudinal strain = -18. 9 % (normal). Ordering Physician: Kala Solares Referring Physician: Kala Solares Performed By: Kya Rivera, RDCS, RVT
--- NOTE | 2024-11-27 08:12 | CT_ITS ---
PROCEDURE: LIMITED CHEST CT CARDIAC ONLY 11/27/2024 REASON FOR EXAM: HTN TECHNIQUE: LIMITED CHEST CT CARDIAC ONLY CONTRAST: None One or more dose reduction techniques were used (e.g., Automated exposure control, adjustment of the mA and/or kV according to patient size, use of iterative reconstruction technique). RADIATION DOSE SUMMARY: CTDlvol: 12.19 mGy DLP: 195.04 mGycm COMPARISON: None FINDINGS: Bilateral breast implants. No significant coronary artery calcification is seen. Lungs are clear. CT/Limited Chest CT Cardiac Only IMPRESSION: No significant coronary artery calcification seen. Reading Location: [id number]
== END | disposition home or self-care (01) ==
LOC: CVS 06:59
PROVIDERS: PCP Family Medicine; Referring Provider Family Medicine; Visit Provider Family Medicine
DX: I10 Essential (primary) hypertension (principal); R07.9 Chest pain, unspecified
CPT/HCPCS: 75571; 76380; 93306

== ENCOUNTER → 2024-12-04 | Outpatient (CLI) | payer SELFPAY ==
--- NOTE | 2024-12-04 14:27 | CT_ITS ---
PROCEDURE: CTA ABDOMEN W/WO CONTRAST 12/04/2024 REASON FOR EXAM: RESISTANT HYPERTENSION TECHNIQUE: CTA ABDOMEN W/WO CONTRAST Multiplanar Sagittal and Coronal images were obtained. 3D and or MIPS post processing was performed CONTRAST: Isovue 370 VOLUME: 100 mL One or more dose reduction techniques were used (e.g., Automated exposure control, adjustment of the mA and/or kV according to patient size, use of iterative reconstruction technique). RADIATION DOSE SUMMARY: CTDlvol: 41.42 mGy DLP: 679.34 mGycm COMPARISON: None FINDINGS: Aorta: Tapers normally without aneurysm or dissection. No atherosclerotic disease. Iliac Arteries: Normal course and caliber. Celiac: Widely patent, no significant atherosclerotic disease or stenosis SMA: Widely patent, no significant atherosclerotic disease or stenosis ROBERT : Not visualized Right Renal: Widely patent, no significant atherosclerotic disease or stenosis Left Renal: Widely patent, no significant atherosclerotic disease or stenosis Lung bases are clear, bilateral breast implants free of complication. Liver shows fatty infiltration without a discrete lesion. Gallbladder, spleen, pancreas, adrenals and kidneys are normal in appearance. No free intraperitoneal fluid, air, or suspicious adenopathy. Bowel loops are unremarkable, no evidence of ileus obstruction or inflammation. Uterus is present and enlarged suggesting underlying fibroids. No suspicious adnexal mass or free fluid. The bladder is normal. No fracture or suspicious osseous lesion CT/CTA Abdomen W/WO Contrast IMPRESSION: No CTA evidence to suspect renal artery stenosis as cause of hypertension Normal vascular structures noted on this study, normal tapering of the aorta wi thout aneurysm or dissection there is no significant atherosclerotic disease or evidence of occlusion or stenosis Fatty liver, no discrete lesion Enlarged likely fibroid uterus Reading Location: [id number]
== END | disposition home or self-care (01) ==
LOC: CT 14:27
PROVIDERS: PCP Family Medicine; Referring Provider Family Medicine; Visit Provider Family Medicine
DX: I1A.0 Resistant hypertension (principal)
CPT/HCPCS: 74175; Q9967

== ENCOUNTER → 2024-12-04 | Outpatient (CLI) | payer SELFPAY ==
--- OUTSIDE RECORDS SUMMARY | 2024-12-04 08:18 | XMS RPT_ITS | CCD ---
Author Organization [facility] CliniSywa Care Team Providers Care Director Product Development Name Role Phone PATRICIA Vasquez, Brook Tristan Unavailable Unavailabl e Nakia PA, PA-C Natividad Primary Care Provider Dr. Pedro Eckert Attending Provider Dr. Kevin Tony Referring Provider Nakia COMBS-CNatividad Primary Care Provider Nakia PA-CSheelaly D Unavailable Nakia COMBS, PA-C Natividad Primary Care Provider [phone] Dr. Pedro Eckert Attending Provider Nakia PA-CNatividad Primary Care Provider Nakia COMBS-CNatividad D Unavailable Dr. Priscila Umaña Referring Provider Unavailable Nakia COMBS, PA-C Natividad Primary Care Provider Dr. Pedro Eckert Attending Provider [phone] Dr. Priscila Umaña Referring Provider Unavailable [place] PA, PA-C Natividad Primary Care Provider Nakia PA, PA-C Natividad Referring Provider RAYRAY Tran Attending Provider Nakia PA-CNatividad Primary Care Provider [phone] NATIVIDAD YEE D Primary Care Unavailable NATIVIDAD YEE Attending Unavailable NATIVIDAD YEE Primary Care Unavailable NATIVIDAD YEE Admitting Unavailable Nakia PA-C, Natividad Primary Care Provider [phone] Jeff ESPINOSA-C, Elinor Lyle Attending Provider Unava ilable Jeff RN NICU-C, Elinor Lyle Referring Provider Unava ilable Erlinda DAVID, Dr. Chandler Emergency Provider Jeff RN NICU-C, Elinor Lyle Primary Care Provider Un available Jose Alexis MD Emergency Provider Erlinda DAVID, Dr. Chandler Attending Provider Vikash DAVID, Dr. Gay Referring Provider NissaGilles DAVID, Dr. Gay Emergency Provider Care Physician, No Primary Primary Care Provider Unavailable Jose Alexis MD Attending Provider [facility] facility[facility] DAV[facility], Dr. Gay Attending Provider Beck COLLINS, Dr. Armendariz Primary Care Provider Beck COLLINS, Dr. Armendariz Attending Provider Dr. Kala Solares MD Referring Provider Vikki COLLINS, Dr. Carranza Attending Provider Brittney COLLINS, Dr. Cueva Attending Provider Miedel, Kala Primary Care Unavailable Brittney Anay Attending Unavailable Miedel, Kala Referring Unavailable Miedel, Kala Primary Care Unavailable Dillon Florez Attending Unavailable Elinor Aguilar NP Primary Care Unavailabl e Jose Alexis Attending Unavailable Care Physician, No Primary Primary Care Unava ilable Klusty-GillesKrunalel Attending Unavailabl e Klusty-Gilles, Victor Hugo Referring Unavailabl e Miedel, Kala Primary Care Unavailable Anay Lugo Attending Unavailable Anay Lugo Referring Unavailable MiedelKala Attending Unavailable Miedel, Kala Primary Care Unavailable Miedel, Kala Primary Care Unavailable Miedel, Kala Attending Unavailable Miedel, Kala Referring Unavailable Miedel, Kala Primary Care Unavailable Miedel, Kala Attending Unavailable Miedel, Kala Referring Unavailable Jeff ESPINOSA, Elinor Lyle Attending Unavailabl Elinor Montoya NP Referring UnavailNatividad Camacho Primary Care Unavailable Elinor Aguilar NP Primary Care UnavailRamesh Ferguson Attending Unavailable Kala Solares Primary Care Unavailable Kala Solares Attending Unavailable Kala Solares Referring Unavailable Allergies Allergy Classification Reported Allergen(s) Allergy Type Date of Onset Reaction(s) Facility (1 source) Azithromycin Drug Allergy 11-17-19 16 [facility] Work Phone: (1 source) Ciprofloxacin Drug Allergy 11-17-19 16 [facility] Work Phone: (1 source) levoFLOXacin Drug Allergy 11-17-19 16 [facility] Work Phone: (1 source) Sulfacetamide Drug Allergy 11-17-19 16 [facility] Work Phone: (20 sources) Azithromycin; Translations: [AZITHROMYCIN] Drug Allergy 03-02-20 07 Upset Stomach [facility] (20 sources) Quinolones (Antibiotic); Translations: [QUINOLONES] Allergy to substance 08-25-[address] [facility] Work Phone: (20 sources) Sulfonamides (Antibiotic); Translations: [SULFA (SULFONAMIDE ANTIBIOTICS)] Allergy to substance 03-02-[address] [facility] (12 sources) 4-Aminobenzoic Acid; Translations: [P-AMINOBENZOIC ACID] Drug Allergy 03-02-20 07 [facility] (15 sources) Ciprofloxacin; Translations: [CIPROFLOXACIN] Drug Allergy 03-02-[address] [facility] (12 sources) DULoxetine; Translations: [DULOXETINE] Drug Allergy 05-16-20 07 Intolerance [facility] (12 sources) levoFLOXacin; Translations: [LEVOFLOXACIN] Drug Allergy 07-15-[address] [facility] (3 sources) Botulinum Toxin Type A Drug Allergy 12-01-19 25 [facility] (3 sources) cyclobenzaprine Drug Allergy 12-01-19 25 Other [facility] (3 sources) gabapentin Drug Allergy 12-01-19 25 Other [facility] (3 sources) Ivermectin Drug Allergy 12-01-19 25 Nausea/Vom/Adriane rrhea [facility] (3 sources) Naltrexone Drug Allergy 12-01-19 Other [facility] (3 sources) traMADol Drug Allergy 12-01-19 Other [facility] (1 source) Azithromycin Drug Allergy 12-01-19 [facility] (1 source) Ciprofloxacin Drug Allergy 12-01-19 [facility] (1 source) cyclobenzaprine Drug Allergy 12-01-19 [facility] (1 source) gabapentin Drug Allergy 12-01-19 [facility] (1 source) Ivermectin Drug Allergy 12-01-19 [facility] (1 source) Naltrexone Drug Allergy 12-01-19 [facility] (1 source) traMADol Drug Allergy 12-01-19 [facility] (1 source) prabotulinumtoxinA- xvfs Drug allergy (disorder) 12-01-19 [facility] Medications Current Medications Medication Drug Class(es) [...] 5 days. cephalexin 500 mg oral capsule (20 sources) Cephalosporin Antibacterial Start: 11-30-2021 End: 12-05-2021 take 1 capsule by mouth three times daily cephALEXin (KEFLEX) 500 mg capsule Take 1 capsule by mouth three times daily for 5 days. 15 capsule 0 11/30/2021 12/05/2021 Active Start: 12-04-2019 End: 12-07-2019 take 1 capsule by mouth every twelve hours Cephalexin 500 MG capsule Discontinued 500 mg PO EVERY 12 HOURS 6 3 0 December 04, 2019 12:00am December 06, 2019 12:00am December 07, 2019 12:02am post-operative Comment on above: Take 1 capsule by [facility] three times daily for 5 days. clonazePAM 0.5 mg oral tablet (20 sources) Benzodiazepine Start: 3 take 1 tablet by mouth every twelve [...] BEDTIME NEEDED as needed for prn anxiety qhs 14 0 December 12, 2013 12:00am February 28, 2019 2:38pm Comment on above: Take one(1) tablet d aily doxycycline monohydrate 100 mg oral capsule (1 source) Tetracycline-class Drug Start: 11-16-19 End: 11-21-19 24 take 1 capsule by mouth twice daily doxycycline monohydrate (MONODOX) 100 mg capsule Indications: Paronychia of great toe of right foot Take 1 capsule by mouth two times a day for 5 days. 10 capsule 0 11/16/2023 11/21/2023 Active LORazepam 0.5 mg oral tablet (4 sources) Benzodiazepine Start: 11-06-19 25 take 1 tablet by mouth twice daily as needed for anxiety Lorazepam (Ativan) 0.5 mg tablet Active 0.5 mg PO TWICE A DAY as needed for anxiety 4 2 0 November 05, 2024 12:00am Do not take at night with your clonazepam. Magnesium (3 sources) Start: 12-01-19 25 take 1 tablet by mouth once daily Magnesium 250 mg tablet Active 250 mg PO daily November 30, 2024 12:00am magnesium citrate (11 sources) Start: 12-03-19 21 [...] cause loose stools 24 hr metoprolol succinate 50 mg extended release oral tablet (20 sources) beta-Adrenergic [place] Start: 12-01-19 take 1 tablet by mouth once daily Metoprolol Succinate 50 mg tablet extended release 24 hr Active 50 mg PO daily November 30, 2024 12:00am Start: 09-10-2022 take 1 tablet by jostin twice daily Metoprolol Succinate 25 mg tablet [...] Take 50 mg by mouth once daily. Dorothy 6-Eco-Dkn-Fish Oil (Fish Oil) 60-90-500 mg capsule (3 sources) Start: 11-30-2024 Dorothy 2-Iuz-Wdu-Fish Oil (Fish Oil) 60-90-500 mg capsule Active 1 NMA PO daily November 30, 2024 12:00am tumeric combination vit (3 sources) Start: 11-30-2024 tumeric combination vit Active PO November 30, 2024 12:00am Completed/Discontinued Medications Medication Drug Class(es) Dates Sig (Normalized) Sig (Original) acetaminophen 325 mg / oxyCODONE hydrochloride 5 mg oral tablet (17 sources) Opioid Agonist Start: 12-04-2019 End: 12-11-2019 Oxycodone-Acetamino phen 1 TABLET tablet Discontinued 2 {tbl} PO EVERY 8 HOURS NEEDED as needed for Pain 7 December 04, 2019 December 10, 2019 12:00am December 11, 2019 12:02am Urinary tract infection Urinary tract infection, site not specified Start: 12-04-2019 End: 12-11-2019 take 2 tablets by mouth every eight hours as needed Oxycodone-Acetaminophen Discontinued 2 TABLET PO EVERY 8 HOURS NEEDED 23 12December 04, 2019 December 11, 2019 12:02am Amitriptyline (4 sources) Tricyclic Antidepressant Start: 11-05-2024 End: 11-05-2024 Amitriptyline (Bulk) powder Discontinued NMA MC November 05, 2024 12:00am November 05, 2024 5:06pm ascorbic acid 500 mg oral capsule (17 sources) Vitamin C Start: 02-28-2019 End: 09-10-2022 take 1 capsule by mouth once daily Ascorbic Acid (Vitamin C) 500 mg capsule Discontinued 500 mg PO DAILY 0 February 28, 2019 12:00am September 10, 2022 9:39am aspirin 81 mg delayed release oral tablet (14 sources) Platelet Aggregation Inhibitor, Nonsteroidal Anti-inflammatory Drug [...] 325 mg by mouth once daily. Baclofen (4 sources) gamma-Aminobutyric Acid-ergic Agonist Start: 11-06-19 End: 11-06-19 Baclofen (Bulk) 100 % powder Discontinued MAA November 05, 2024 12:00am November 05, 2024 5:06pm biotin 1 mg oral capsule (17 sources) Start: 02-29-20 End: 05-09-20 take 1 capsule by mouth once daily Biotin 1 mg capsule Discontinued 1 mg PO DAILY February 28, 2019 12:00am May 09, 2020 10:20am cholecalciferol 0.05 mg oral capsule (17 sources) Vitamin D Start: 02-29-20 End: 09-11-19 take 1 capsule by mouth once daily Cholecalciferol (Vitamin D3) 2,000 unit capsule Discontinued 2000 U PO DAILY February 28, 2019 12:00am September 10, 2022 9:39am cyclobenzaprine hydrochloride 10 mg oral tablet (5 sources) Muscle Relaxant Start: 10-27-19 End: 11-06-19 take 1 tablet by mouth three times daily Cyclobenzaprine 10 mg tablet Discontinued 10 mg PO THREE TIMES A DAY October 26, 2024 12:00am November 05, 2024 5:06pm fluconazole 150 mg oral tablet (17 sources) Azole Antifungal Start: 12-04-19 End: 12-06-19 take 1 tablet by mouth once daily Fluconazole 150 MG tablet Discontinued 150 mg PO DAILY 2 2 0 December 04, 2019 12:00am December 05, 2019 12:00am December 06, 2019 12:02am gabapentin (9 sources) Anti-epileptic Agent Start: 11-06-19 End: 11-06-19 Gabapentin (Bulk) 100 % powder Discontinued [facility] November 05, 2024 12:00am November 05, 2024 5:07pm Start: 10-26-2024 End: 11-05-2024 take 100-200 mg by mouth once daily as needed for pain Gabapentin 100 mg capsule Discontinued 100 - 200 mg PO DAILY as needed for pain October 26, 2024 12:00am November 05, 2024 5:07pm GI-Revive 225 gram Powder ([employer]) (11 sources) Start: 07-25-2020 End: 11-16-2023 GI-Revive 225 gram Powder (Command Information) Indications: Other chronic pain , History of thyroid disease , Arthralgia, unspecified joint , Abnormal increased muscle tightness , Mold exposure , Chronic idiopathic constipation , Bloating , Chronic fatigue, unspecified , Diarrhea of presumed infectious origin , Heavy metal exposure Take 1 tablespoons twice daily (1 tablespoon = 1.5 grams L-glut) 0 07/25/2020 11/16/2023 Discontinued Start: 07-25-2020 GI-Revive 225 gram Powder (Command Information) Indications: Other chronic pain , History of [...] daily (1 tablespoon = 1.5 grams L-glut) Edbzvlgd-Vai-Vhuwdlkq t-Vit D3 (11 sources) Start: 11-27-2019 End: 05-09-2020 Sszedvot-Ujg-Vqlmnvmvm-Vi t D3 Discontinued 1 EACH PO DAILY November 27, 2019 1:16pm May 09, 2020 10:22am Start: 11-27-2019 End: 05-09-2020 Nadnfisi-Yuj-Lylvfuhzf-Vit D 3 Discontinued 1 EACH PO DAILY November 27, 2019 12:00am May 09, 2020 10:22am Start: 11-27-2019 End: 05-09-2020 Iwejqauh-Jkp-Hzvgbzyns-Vit D 3 Discontinued 1 EACH PO DAILY November 26, 2019 11:00pm May 09, 2020 9:22am Gcoblcos-Otl-Dlguppodr-Vit D 3 1 EACH tablet (6 sources) Start: 11-27-2019 End: 05-09-2020 Ldaazbhk-Syy-Cmckpihbb-Vit D 3 1 EACH tablet Discontinued 1 NMA PO DAILY November 27, 2019 12:00am May 09, 2020 10:22am Glycerin (4 sources) Non-Standard ized Chemical Allergen Start: 11-05-2024 End: [...] No.8 (Adult Probiotic) 3 billion cell capsule (17 sources) Start: 9 End: 0 take 3 [...] 2019 11:00pm May 09, 2020 9:24am Lidocaine (4 sources) Antiarrhythmic, Amide Local Anesthetic Start: 11-05-2024 End: 11-05-2024 Lidocaine (Bulk) powder Discontinued NMA MC November 05, 2024 12:00am November 05, 2024 5:07pm magnesium oxide 500 mg oral capsule (17 sources) Start: 11-27-2019 End: 05-09-2020 take 1 capsule by mouth once daily Magnesium Oxide 500 MG capsule Discontinued 500 mg PO DAILY November 27, 2019 12:00am May 09, 2020 10:23am nitrofurantoin, macrocrystals 25 mg / nitrofurantoin, monohydrate 75 mg oral capsule (11 sources) Nitrofuran Antibacterial Start: 09-10-2022 End: 11-30-2023 take 1 capsule by mouth twice daily at mealtime Nitrofurantoin Monohyd/M-Cryst (Macrobid) 100 mg capsule Discontinued 100 mg PO TWICE A DAY September 10, 2022 12:00am November 30, 2023 8:43am must administer with a meal/food Dorothy-3 Fatty Acids (11 sources) Start: 02-28-2019 End: 05-09-2020 take 1000 mg by mouth once daily Dorothy-3 Fatty Acids Discontinued 1000 MG PO DAILY February 28, 2019 2:36pm May 09, 2020 10:23am Start: 02-28-2019 End: 05-09-2020 take 1000 mg by mouth once daily Dorothy-3 Fatty Acids Discontinued 1000 MG PO DAILY February 28, 2019 12:00am May 09, 2020 10:23am Start: 02-28-2019 End: 05-09-2020 take 1000 mg by mouth once daily Dorothy-3 Fatty Acids Discontinued 1000 MG PO DAILY February 27, 2019 11:00pm May 09, 2020 9:23am Dorothy-3 Fatty Acids 1,000 mg capsule (6 sources) Start: 02-28-2019 End: 05-09-2020 take 1 capsule by mouth once daily Dorothy-3 Fatty Acids 1,000 mg capsule Discontinued 1000 mg PO DAILY February 28, 2019 12:00am May 09, 2020 10:23am ondansetron 4 mg oral tablet (4 sources) Serotonin-3 Receptor Antagonist Start: 11-05-2024 End: 11-05-2024 [...] Comment on above: [facility] daily as needed. VIT-FE FUMARATE-FA (1 source) Start: 11-17-2015 take 1 tablet by mouth once daily VITAMIN 27-0.8 MG TABS 1 tablet by mouth daily VIT-FE FUMARATE-FA [id number] Natividad Yee PA-C QUEtiapine 25 mg oral [...] to 1 tablet before bed QUETIAPINE FUMARATE [id number] Natividad Yee PA-C QUEtiapine 50 mg tablet [...] as needed Tretinoin (11 sources) Retinoid End: TRETINOIN (RETIN-A TOPICAL) Apply to affected area. 0 11/16/2023 Discontinued TRETINOIN (RETIN -A TOPICAL) Apply to affected area. 0 Active Comment on above: Apply to affected ar ea. Turmeric Root Extract (17 sources) Start: 11-27-2019 End: 05-09-2020 take 500 [...] 9:23am vitamin a 2.4 mg oral capsule (17 sources) Vitamin A Start: 11-27-2019 End: 05-09-2020 Vitamin A 8,000 UNIT capsule Discontinued 8000 U PO DAILY November 27, 2019 12:00am May 09, 2020 10:23am Vitamin B Comp And C No.3 (B Complex Plus Vitamin C) 18-59-95-5-300 mg capsule (17 sources) Start: 02-28-2019 End: 05-09-2020 Vitamin B Comp And C No.3 (B Complex Plus Vitamin C) 12-94-83-5-300 mg capsule Discontinued 1 CAP PO DAILY February 28, 2019 2:37pm May 09, 2020 10:23am Start: 02-28-2019 End: 05-09-2020 Vitamin B Comp And C No.3 (B Complex Plus Vitamin C) 73-68-46-5-300 mg capsule Discontinued 1 NMA PO DAILY February 28, 2019 12:00am May 09, 2020 10:23am Start: 02-28-2019 End: 05-09-2020 Vitamin B Comp And C No.3 (B Complex Plus Vitamin C) 50-98-71-5-300 mg capsule Discontinued 1 CAP PO DAILY February 28, 2019 12:00am May 09, 2020 10:23am Start: 02-28-2019 End: 05-09-2020 Vitamin B Comp And C No.3 (B Complex Plus Vitamin C) 10-86-10-5-300 mg capsule Discontinued 1 CAP PO DAILY February 27, 2019 11:00pm May 09, 2020 9:23am Problems Active Problems Problem Classification Problem Date Documented Date Episodic/Chronic Allergic reactions (1 source) Allergy, unspecified, initial encounter; Translations: [Allergy, unspecified, initial encounter] Onset: 11-01-2024 Episodic Anxiety disorders (10 sources) Anxiety; Translations: [Anxiety disorder, unspecified] Onset: 11-17-2015 11-17-2015 Chronic Cardiac dysrhythmias (18 sources) Tachycardia; Translations: [Intermittent palpitations] Onset: 02-10-2017 02-10-2017 Episodic E Codes: Adverse effects of medical drugs (5 sources) Adverse reaction to drug; Translations: [Adverse effect of unspecified drugs, medicaments and biological substances, initial encounter] 10-26-2024 Episodic Essential hypertension (19 sources) Hypertensive disorder; Translations: [Essential (primary) hypertension] Onset: 12-02-2024 12-04-2019 Chronic Genitourinary symptoms and ill-defined conditions (17 sources) Urge incontinence of urine; Translations: [Urge [...] source) Other fatigue; Translations: [Other fatigue] Onset: 11-27-2024 Episodic Nonmalignant breast conditions (5 sources) Breast lump; Translations: [Unspecified lump in the left breast, unspecified quadrant] Onset: 11-30-2024 11-30-2024 Episodic Nonspecific chest pain (5 sources) Chest pain; Translations: [Chest pain, unspecified] Onset: 11-12-2024 11-05-2024 Episodic Nutritional deficiencies (11 sources) Vitamin D deficiency; Translations: [Vitamin D deficiency, unspecified] Onset: 04-20-2007 04-20-2007 Chronic Other connective tissue disease (16 sources) Pain in lower limb; Translations: [Pain in leg, unspecified] 11-15-2021 Episodic Other connective tissue disease (1 source) Pain in left lower limb; Translations: [Pain in left leg] Episodic Other female genital disorders (17 sources) Dyspareunia; Translations: [Dyspareunia] 12-04-2019 Chronic Other female genital disorders (1 source) Vulvar cyst; Translations: [Other specified noninflammatory disorders of vulva and perineum] 10-06-2023 Episodic Other infections; including parasitic (1 source) Pediculosis capitis; Translations: [Pediculosis due to Pediculus humanus capitis] 11-16-2023 Episodic Other lower respiratory disease (12 sources) Dyspnea; Translations: [Shortness of breath] Onset: 02-10-2017 02-10-2017 Episodic Other nutritional; endocrine; and metabolic disorders (1 source) Hypercalcemia; Translations: [Hypercalcemia] Onset: 03-15-2024 Chronic Other screening for suspected conditions (not mental disorders or infectious disease) (18 sources) Encounter for screening for diabetes mellitus; Translations: [Thyroid function tests abnormal] Onset: 11-17-2015 11-17-2015 Episodic Residual codes; unclassified (18 sources) Insomnia; Translations: [Insomnia, unspecified] Onset: 11-17-2015 [...] disorders] Onset: 11-17-2015 11-17-2015 Urinary tract infections (17 sources) Urinary tract infectious disease; Translations: [Urinary [...] and metabolic disease] Onset: 11-21-2013 11-21-2013 Episodic Results Test Name Value Interpretation Reference Range Facility Surgery Visit Reporton 11-30 [facility] Report [facility] [address] [place] [address] OFFICE VISIT Date of Service: 11/30/24 MR#: [id number] Acct: [id number] Name: VERONICA UMAÑA Rep #: [id number] : 1975 Provider: Dr. Anay bradford MD Age/Sex: 49/F Location: [facility] Status: Signed Intake Vital Signs 11/05/24 15:29 11/30/24 09:19 Height 5 ft 7 in 5 ft 7 in Weight: 167 lb BMI 26.2 BP 142/92 H Blood Pressure Location Rt brachial Position Sitting Respiration 18 Pulse 77 Pulse Source Monitor Temp 97.5 F L Temp Source Temporal Pulse Oximetry (%) 98 Oxygen Delivery Method room air Intake Visit Reasons: BIRADS 4-SELF PAY Chief Complaint: birads 4 self pay Is patient in pain?: Yes (chronic muscle/skeletal aches/pains) Allergies ciprofloxacin (From Cipro) Allergy (Verified 11/30/24 09:21) Hives prabotulinumtoxinA-xvfs (From Jeuveau) Allergy (Verified 11/30/24 09:21) Hives Quinolones Allergy (Verified 11/30/24 09:21) Hives Sulfa (Sulfonamide Antibiotics) Allergy (Verified 11/30/24 09:21) Hives azithromycin (From Zithromax Z-Boubacar) Adverse Reaction (Verified 11/30/24 09:21) Upset Stomach cyclobenzaprine (From Flexeril) Adverse Reaction (Verified 11/30/24 09:21) Other gabapentin Adverse Reaction (Verified 11/30/24 09:21) Other ivermectin Adverse Reaction (Verified 11/30/24 09:21) Nausea/Vom/Diarrhea naltrexone Adverse Reaction (Verified 11/30/24 09:21) Other tramadol Adverse Reaction (Verified 11/30/24 09:21) Other Medications ???Medication ???Instructions ???Recorded ???Confirmed ???Type clonazepam 0.5 mg tablet 0.5 mg PO Q12H 09/10/22 11/30/24 H istory metoprolol succinate 25 mg 25 mg PO BID 09/10/22 11/30/24 His tory tablet,extended release 24 hr lorazepam 0.5 mg tablet (Ativan) 0.5 mg PO BID PRN anxiety 2 days 0 11/05/24 11/30/24 Rx #4 tabs magnesium 250 mg tablet 250 mg PO QDAY 11/30/24 11/30/24 H istory metoprolol succinate 50 mg 50 mg PO QDAY 11/30/24 11/30/24 Hi story tablet,extended release 24 hr omega 3-dwr-jog-fish oil 60 mg-90 1 cap PO QDAY 11/30/24 11/30/24 H istory mg-500 mg capsule (Fish Oil) tumeric combination vit PO 11/30/24 History PFSH Medical History (Updated 11/30/24 @ 09:19 by Anna Marie Carcamo) Fear of travel with panic attacks Tachycardia Fatigue Vitamin D deficiency Anxiety Fluctuating blood pressure Intermittent palpitations SOB (shortness of breath) Abnormal finding on thyroid function test Dyspareunia Urge incontinence Urinary tract infection Hypertension Neck pain Back pain Insomnia Surgical History History of lumpectomy of left breast Status post glaucoma surgery S/P S/P sinus surgery s/p left shoulder surgery Family History Father Hypertension Yesica-Danlos syndrome Mother Breast cancer Hypertension Grandfather Heart disease Diabetes Hypertension CVA (cerebral vascular accident) Grandmother Hypertension Thyroid disorder Breast cancer CVA (cerebral vascular accident) Aunt Thyroid disorder CVA (cerebral vascular accident) Yesica-Danlos syndrome Social History (Updated 11/30/24 @ 09:19 by Anna Marie Carcamo) Smoking Status: Never smoker alcohol intake: former details: occasionally substance use type: does not use caffeine: Yes what type of physical activity do you participate in: walking frequency: 3-4 times per week duration: 15-30 minutes/day seatbelt use: always do you feel safe at home: Yes additional social history: Hacxxfp-Jbdbq-Masnlmudu tor 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 patient is anxious about the ultrasound report. Patient does have benign-appearing cystic masses in the left breast x 4, there is a solid hypoechoic heterogeneously mass with irregular margins at 1:00 6 cm from the nipple recommended biopsy, another solid hypoechoic mass at 2:00 8 cm from nipple 12 x 7 x 3 mm recommended short-term 6-month follow-up ultrasound. Also commented on patient's axillary nodes with thin cortex do not appear worrisome for malignancy that are 2 to 3 cm in size. Patient is status post bilateral breast augmentation when she was 19 with implants. Patient also has past medical history for more recent tachycardia which she has been seen in the ER for several times. Patient does have an upcoming appointment with cardiology. Patient does have some soreness in the left upper breast area in the axilla and states a little more fullness to the left upper breast than right. Patient is age at menses 1 (more content not included)... Normal [facility] Coronary Angiography CTon Coronary Angiography CT [facility] [address] [place] [address] 11/27/24 1645 MR#: [id number] Acct: [id number] Name: VERONICA UMAÑA Rep #: [id number] : 1975 49 From: Dillon Florez MD PCP: Dr. Kala Solares MD Status:PRE CLI Y Location: CT Calcium Scoring Date of Study:: 11/27/24 Indications Indications: Family history Coronary Calcium Scoring: High-resolution Computed Tomographic imaging of the chest was performed on [11/27/2024], with particular attention paid to the coronary arteries. Images from the examination were analyzed for the presence and extent of coronary artery calcification , using coronary calcium quantification software. The patient tolerated the procedure well and there were no complications. The results of the coronary calcification analysis are provided below. Findings Coronary Artery Left Main (LM): 0 Left Anterior Descending (LAD): 0 Left Circumflex (LCX): 0 Right Coronary Artery (RCA): 0 Total Agatston Score: 0 Percentile Rankin% Calcium Scoring Interpretation: Different methods to categorize the overall amount of coronary plaque. Overall amount CAC SIS Visual of coronary plaque P1 Mild -100 <2 1-2 vessels with mild amount of plaque P2 Moderate 101-300 3-4 1-2 vessels with moderate amount, 3 vessels with mild amount of plaque P3 Severe 301-999 5-7 3 vessels with moderate amount, 1 vessel with severe amount of plaque P4 Extensive >1000 >8 2-3 vessels with severe amount of plaque Conclusion: No atherosclerotic plaque 11/27/24 1646 Date Dillon Florez MD Cosigner Signature (if applicable): Date CC: Dr. Dillon Florez MD; Dr. Kala Solares MD Signed Normal [facility] Echo Completeon 11-27-2024 Echo Complete [facility] [address] [place] [address] Echo Complete 11/27/24 0714 MR#: [id number] Acct: [id number] Name: VERONICA UMAÑA Rep #: [id number] : 1975 49 From: Dillon Florez MD Attending Dr: Dr. Kala Solares MD Status: REG I Ordering Dr: Kala Solares MD Date: 11/27/24 Location: [facility] Sex: F C Admitted: Reason For Study Reason For Study: HYPERTENSION Procedure This was a 2D Doppler, Color Flow transthoracic echocardiogram. Myocardial strain analysis was performed in this exam to aid in the assessment of cardiac function. The study was technically difficult. Exam performed in department. Left Ventricle Normal LV size. Left ventricular systolic function is normal. The left ventricular ejection fraction is 60 %. No regional wall motion abnormalities noted. Right Ventricle Normal RV size. Normal systolic function. Atria Normal left atrium. Normal right atrium. Mitral Valve Normal mitral valve. Tricuspid Valve Normal tricuspid valve. Aortic Valve Trisinus/trileaflet aortic valve. Pulmonic Valve Normal pulmonic valve. Great Vessels Normal aortic root. The pulmonary artery is normal size. Inferior vena cava collapse with respiration. Pericardium/Pleural No pericardial effusion. MMode/2D Measurements Calculations LVIDd: 4.9 cm IVSd: 0.93 cm Ao root diam: 2.7 cm LVIDs: 3.0 cm LVPWd: 0.93 cm RVDd: 3.0 cm FS: 39.0 % LAV(MOD-bp): 50.1 ml LVAd ap4: 26.1 cm2 SV(MOD-sp4): 49.7 ml LAV(MOD-bp) Indexed: 26.9 ml/m2 LVLd ap4: 7.9 cm SI(MOD-sp4): 26.7 ml/m2 LAV(MOD-sp2): 48.2 ml EDV(MOD-sp4): 74.6 ml LAV(MOD-sp4): 48.1 ml EDV(sp4-el): 73.4 ml LVAs ap4: 13.3 cm2 LVLs ap4: 6.5 cm ESV(MOD-sp4): 24.9 ml ESV(sp4-el): 23.2 ml EF(MOD-sp4): 66.7 % EF(sp4-el): 68.5 % SV(sp4-el): 50.3 ml LA A4 area: 16.7 cm2 LA dimension(2D): 3.5 cm RA A4 area: 11.2 cm2 TAPSE: 2.3 cm Time Measurements MV dec time: 0.18 sec Doppler Measurements Calculations MV E max mimi: 76.6 cm/sec Lat Peak E' Mimi: 13.0 cm/sec Med Peak E' Mimi: 12.7 cm/sec MV A max mimi: 73.2 cm/sec E/E' lat: 5.9 E/E' med: 6.0 MV E/A: 1.0 MV V2 max: 77.6 cm/sec MV P1/2t max mimi: 80.2 cm/sec Ao V2 max: 145.1 cm/sec MV max P.4 mmHg MV P1/2t: 67.2 msec Ao max P.4 mmHg MV V2 mean: 52.0 cm/sec Ao V2 mean: 91.6 cm/sec MV mean P.2 mmHg MV dec slope: 349.8 cm/sec2 Ao mean P.0 mmHg MV V2 VTI: 24.2 cm MVA(P1/2t): 3.3 cm2 Ao V2 VTI: 26.5 cm AV (velocity ratio): 0.67 LV V1 max: 87.1 cm/sec PA V2 max: 101.9 cm/sec LV V1 max P.0 mmHg PA V2 mean: 70.8 cm/sec LV V1 mean P.5 mmHg PA V2 VTI: 17.0 cm LV V1 mean: 58.1 cm/sec LV V1 VTI: 17.8 cm ECHO/Echo Complete Interpretation Summary Normal LV size. Left ventricular systolic function is normal. The left ventricular ejection fraction is 60 %. The global longitudinal strain is normal. The global longitudinal strain = -18.9 % (normal). Ordering Physician: Kala Solares Referring Physician: Kala Solares Performed By: Kya Rivera, MAYITO, RVT 11/27/24 1041 Date Dillon Florez MD CC: Dr. Kala Solares MD Date Dictated: 11/27/24713 Date Transcribed: 11/27/24 104 Crocheter: Signed Normal [facility] Echocardiogram study reportO rdered By: Dillon Florez on 11-27-2024 Study report [facility] [address] [place] [address] Echo Complete 11/27/24713 MR#: [id number] Acct: [id number] Name: VERONICA UMAÑA Rep #:[id number] : 1975 49 From: Diloln Ferro Attending Dr: Dr. Kala Solares MD Status: REG CLI Ordering Dr: Kala Solares MD Date: 0 11/27/24 Location: [facility] Sex: F C Admitted: Reason For Study Reason For Study: HYPERTENSION Procedure This was a 2D Doppler, Color Flow transthoracic echocardiogram. Myocardial strain analysis was performed in this exam to aid in the assessment of cardiac function. The study was technically difficult. Exam performed in department. Left Ventricle Normal LV size. Left ventricular systolic function is normal. The left ventricular ejection fraction is 60 %. No regional wall motion abnormalities noted. Right Ventricle Normal RV size. Normal systolic function. Atria Normal left atrium. Normal right atrium. Mitral Valve Normal mitral valve. Tricuspid Valve Normal tricuspid valve. Aortic Valve Trisinus/trileaflet aortic valve. Pulmonic Valve Normal pulmonic valve. Great Vessels Normal aortic root. The pulmonary artery is normal size. Inferior vena cava collapse with respiration. Pericardium/Pleural No pericardial effusion. MMode/2D Measurements & Calculations LVIDd: 4.9 cm IVSd: 0.93 cm Ao root diam: 2.7 cm LVIDs: 3.0 cm LVPWd: 0.93 cm RVDd: 3.0 cm FS: 39.0 % LAV(MOD-bp): 50.1 ml LVAd ap4: 26.1 cm2 SV(MOD-sp4): 49.7 ml LAV(MOD-bp) Indexed: 26.9 ml/m2 LVLd ap4: 7.9 cm SI(MOD-sp4): 26.7 ml/m2 LAV(MOD-sp2): 48.2 ml EDV(MOD-sp4): 74.6 ml LAV(MOD-sp4): 48.1 ml EDV(sp4-el): 73.4 ml LVAs ap4: 13.3 cm2 LVLs ap4: 6.5 cm ESV(MOD-sp4): 24.9 ml ESV(sp4-el): 23.2 ml EF(MOD-sp4): 66.7 % EF(sp4-el): 68.5 % SV(sp4-el): 50.3 ml LA A4 area: 16.7 cm2 LA dimension(2D): 3.5 cm RA A4 area: 11.2 cm2 TAPSE: 2.3 cm Time Measurements MV dec time: 0.18 sec Doppler Measurements & Calculations MV E max mimi: 76.6 cm/sec Lat Peak E' Mimi: 13.0 cm/sec Med Peak E' Mimi: 12.7 cm/sec MV A max mimi: 73.2 cm/sec E/E' lat: 5.9 E/E' med: 6.0 MV E/A: 1.0 MV V2 max: 77.6 cm/sec MV P1/2t max mimi: 80.2 cm/sec Ao V2 max: 145.1 cm/sec MV max P.4 mmHg MV P1/2t: 67.2 msec Ao max P.4 mmHg MV V2 mean: 52.0 cm/sec Ao V2 mean: 91.6 cm/sec MV mean P.2 mmHg MV dec slope: 349.8 cm/sec2 Ao mean P.0 mmHg MV V2 VTI: 24.2 cm MVA(P1/2t): 3.3 cm2 Ao V2 VTI: 26.5 cm AV (velocity ratio): 0.67 LV V1 max: 87.1 cm/sec PA V2 max: 101.9 cm/sec LV V1 max P.0 mmHg PA V2 mean: 70.8 cm/sec LV V1 mean P.5 mmHg PA V2 VTI: 17.0 cm LV V1 mean: 58.1 cm/sec LV V1 VTI: 17.8 cm ECHO/Echo Complete Interpretation Summary Normal LV size. Left ventricular systolic function is normal. The left ventricular ejection fraction is 60 %. The global longitudinal strain is normal. The global longitudinal strain = -18.9% (normal). Ordering Physician: Kala Solares Referring Physician: Kala Solares Performed By: Kya Rivera, RDCS, RVT 11/27/24 1041 Date _ Dillon Florez MD CC: Dr. Kala Solares MD ~ Date Dictated: 11/27/24713 Date Transcribed: 11/27/24 104 Crocheter: Signed [facility] Work Phone: Limited Chest CT Cardiac Onl [facility] 11-27-[address] Cardiac Only [facility] Imaging Services [address] [place], [place] [address] Limited Chest CT Cardiac Only MR#: [id number] Acct: [id number] Name: VERONICA UMAÑA Rep #: [id number] : 1975 F 49 From: Kamlesh chin MD PCP: Dr. Kala Solares MD Status: REG CLI Study: Limited Chest CT Cardiac Only Date of Exam: Exam# [id number] Ordering Dr: Kala Solares MD PROCEDURE: LIMITED CHEST CT CARDIAC ONLY 11/27/2024 REASON FOR EXAM: HTN TECHNIQUE: LIMITED CHEST CT CARDIAC ONLY CONTRAST: None One or more dose reduction techniques were used (e.g., Automated exposure control, adjustment of the mA and/or kV according to patient size, use of iterative reconstruction technique). RADIATION DOSE SUMMARY: CTDlvol: 12.19 mGy DLP: 195.04 mGycm COMPARISON: None FINDINGS: Bilateral breast implants. No significant coronary artery calcification is seen. Lungs are clear. CT/Limited Chest CT Cardiac Only IMPRESSION: No significant coronary artery calcification seen. Reading Location: [id number] CC: Dr. Kala Solares MD Crocheter: Signed Normal [facility] Breast Limited Unilateralon 11-26-2024 Breast Limited Unilateral [facility] [address] [place] [address] Breast Limited Unilateral MR#: [id number] Acct: [id number] Name: VERONICA UMAÑA Rep #: [id number] : 1975 F 49 From: Hanna Mann PCP: Dr. Kala Solares MD Status: REG CLI Study: Breast Limited Unilateral Date of Exam: Exam# [id number] Ordering Dr: Kala Solares MD PROCEDURE: BREAST LIMITED UNILATERAL 11/26/2024 REASON FOR EXAM: F, Age 49 y/o , LUMP Left breast palpable abnormality. Inconclusive mammogram shows masses in the breast. Evaluate. Patient has a left breast implant. COMPARISON: Mammogram dated 11/26/2024 and 09/27/2022. TECHNIQUE: BREAST LIMITED UNILATERAL FINDINGS: Benign-appearing fibrocystic changes are noted throughout the breast. Multiple benign-appearing cystic masses are seen. These are located at the following locations: Marked 12 o'clock, 3 cm from the nipple position measuring 5 x 5 x 4 mm and 2 o'clock, 7 cm from the nipple position measuring 8 x 6 x 3 mm. Benign-appearing complex cystic and solid masses are seen at the following locations: 12 o'clock, 3 cm from the nipple position measuring 9 x 8 x 4 mm and 12 o'clock, 3 cm from nipple position measuring 9 x 9 x 4 mm. There is a solid hypoechoic heterogeneous mass which has irregular margins. This mass is located at 1 o'clock, 6 cm from the nipple position and measures 11 x 10 x 6 mm. It may represent a fibroadenoma however malignancy is another consideration. Biopsy is warranted. There is a solid hypoechoic mass seen at the 2 o'clock, 8 cm from nipple position measuring 12 x 7 x 3 mm. This mass is wider than it is tall and does not produce any posterior shadowing. It appears to represent a fibrocystic mass or fibroadenoma. Short-term six-month follow-up ultrasound is recommended to document stability. There are 2 benign-appearing intramammary lymph nodes seen at 3 o'clock, 11 cm from nipple position measuring 7 x 5 x 3 mm and 3 o'clock, 9 cm from nipple position measuring 6 x 4 x 3 mm. There are benign-appearing axillary lymph nodes seen in the axillary region. These have thin cortexes and do not appear worrisome for malignancy. These benign-appearing axillary lymph nodes measure: 3.2 x 2.2 x 1.5 cm 2.3 x 1.8 x 1.2 cm and 3.7 x 1.6 x 1.1 cm. US/Breast Limited Unilateral IMPRESSION: The solid mass in the left breast at the 1 o'clock position warrants biopsy in order to completely exclude a malignancy. Short-term six-month follow-up ultrasound is recommended to document stability of the remaining masses. BI-RADS 4: SUSPICIOUS ABNORMALITY. RECOMMENDATION: Biopsy Recommended Reading Location: [id number] CC: Dr. Kala Solares MD Crocheter: Signed Normal [facility] Breast imaging reportOrdered By: Hanna Villalobos on 11-26-2024 Study report [facility] [address] [place], [place] [address] DIAG MAMM W/CAD, BILAT MR#: [id number] Acct: [id number] Name: VERONICA UMAÑA Rep #: [id number] : 1975 F 49 From: Jose Angel Villalobos DO PCP: Dr. Kala Solares MD Status: REG CLI Study:DIAG MAMM W/CAD, BILAT Date of Exam: 11/26/24 Exam# [id number] Ordering Dr: Ahsan Solares MD EXAM: DIAG MAMM W/CAD, BILAT 11/26/2024 CLINICAL HISTORY: F, Age 49 y/o , LUMP ON LEFT SIDE. Left breast palpable abnormality. Evaluate. Patient has bilateral breast implants she has had for proximally 30 years. TECHNIQUE: DIAG MAMM W/CAD, BILAT. CC and MLO views of the right and left breasts were performed as well as pushback Philippe CC and pushback Philippe MLO views of the right and left breast. COMPARISON: Prior exam(s) dated 09/27/2022 and 07/26/2019. FINDINGS: TISSUE DENSITY: The breast tissue is extremely dense which lowers the sensitivity of mammography. Bilateral Breast Mammographic Findings: There is a mass in the left breast correlating to the palpable area. This is best appreciated on the susan images. Further workup with ultrasound will be performed for further evaluation. There are additional masses seen in the left breast which will also be further worked up with ultrasound. Benign vascular calcifications and round microcalcifications are seen in the left breasts. The breast implant appears to be intact. Benign-appearing lymph nodesare seen. Benign round calcifications and vascular calcifications are seen in the right breast. Benign-appearing intramammary and axillary lymph nodes are seen. There are no suspicious masses, suspicious clusters of microcalcifications, architectural distortion or secondary signs of malignancy identified in the right breast. BI/DIAG MAMM W/CAD, BILAT IMPRESSION: Dedicated ultrasonography of the left breast will be performed for further evaluation of the palpable abnormality and masses seen. Please see that report. OVERALL FINAL ASSESSMENT BI-RADS 0: INCOMPLETE - NEED ADDITIONAL IMAGING EVALUATION. RECOMMENDATION: Ultrasound Recommended A letter with findings and recommendations will be mailed to the patient. Reading Location: [id number] CC: Dr. Kala Solares MD ~ Crocheter: Signed [facility] DIAG MAMM W/CAD, BILATon DIAG MAMM W/CAD, BILAT [facility] [address] [place] [address] DIAG MAMM W/CAD, BILAT MR#: [id number] Acct: [id number] Name: VERONICA UMAÑA Rep #: [id number] : 1975 F 49 From: Hanna Ferro O PCP: Dr. Kala Solares MD Status: REG CLI Study: DIAG MAMM W/CAD, BILAT Date of Exam: 11/26/24 Exam# [id number] Ordering Dr: Kala Solares MD EXAM: DIAG MAMM W/CAD, BILAT 11/26/2024 CLINICAL HISTORY: F, Age 49 y/o , LUMP ON LEFT SIDE. Left breast palpable abnormality. Evaluate. Patient has bilateral breast implants she has had for proximally 30 years. TECHNIQUE: DIAG MAMM W/CAD, BILAT. CC and MLO views of the right and left breasts were performed as well as pushback Philippe CC and pushback Philippe MLO views of the right and left breast. COMPARISON: Prior exam(s) dated 09/27/2022 and 07/26/2019. FINDINGS: TISSUE DENSITY: The breast tissue is extremely dense which lowers the sensitivity of mammography. Bilateral Breast Mammographic Findings: There is a mass in the left breast correlating to the palpable area. This is best appreciated on the susan images. Further workup with ultrasound will be performed for further evaluation. There are additional masses seen in the left breast which will also be further worked up with ultrasound. Benign vascular calcifications and round microcalcifications are seen in the left breasts. The breast implant appears to be intact. Benign-appearing lymph nodes are seen. Benign round calcifications and vascular calcifications are seen in the right breast. Benign- appearing intramammary and axillary lymph nodes are seen. There are no suspicious masses, suspicious clusters of microcalcifications, architectural distortion or secondary signs of malignancy identified in the right breast. BI/DIAG MAMM W/CAD, BILAT IMPRESSION: Dedicated ultrasonography of the left breast will be performed for further evaluation of the palpable abnormality and masses seen. Please see that report. OVERALL FINAL ASSESSMENT BI-RADS 0: INCOMPLETE - NEED ADDITIONAL IMAGING EVALUATION. RECOMMENDATION: Ultrasound Recommended A letter with findings and recommendations will be mailed to the patient. Reading Location: [facility] CC: Dr. Kala Solares MD Crocheter: Signed Normal [facility] 12 Lead EKGon 11-05-2024 12 Lead EKG [facility] [address] [place] [address] 12 Lead EKG 11/05/24 1555 MR#: [id number] Acct: [id number] Name: VERONICA UMAÑA Rep #: [id number] : 1975 49 From: Brandy Meza MD [...] : 403 ms Sinus rhythm with short ID Otherwise normal ECG Confirmed by Brandy Meza ([id number]), story editor VERONICA ESCOBAR ([id number]) on 11/06/2024 9:56:44 AM Referred By: Victor Hugo Suh Confirmed By: Brandy Meza 11/06/24 0956 Date Brandy Meza MD CC: Dr. Victor Hugo Suh, DO; No Primary Care Physician Signed Normal [facility] Absolute lymphocyte countOrd ered By: Victor Hugo Suh on 11-05-2024 Lymphocytes Auto (Unsp spec) [#/Vol] 1.60 10*3/uL 0.83-4.51 [facility] Absolute neutrophil countOrd ered By: Victor Hugo Suh on 11-05-2024 Neutrophils (Bld) [#/Vol] 4.3 10*3/uL 2.0-7.7 [facility] Anion gap in Serum or Plasma Ordered By: Victor Hugo Suh on 11-05-2024 Anion gap [Moles/Vol] 12 mmol/L 5-15 [facility] Automated lymphocyte count a s percentage of total leukocytesOrdered By: Victor Hugo Suh on 11-05-2024 Lymphocytes/100 WBC Auto (Unsp spec) 24.7 % 19-41 [facility] BUN/creatinine ratioOrdered By: Victor Hugo Suh on 11-05-2024 Urea nitrogen/Creatinine [Mass ratio] 23.7 mg/mg High 10-20 [facility] Basic Metabolic Profile (BMP )on 11-05-2024 BUN/CRE 23.7 RATIO High 10- [facility] Comment on above: Performed By: #### L 501.5200, L501.4021, L500.2500, L100.0100, L501.9520, L300.8000 ####[facility] [address] [facility] [place], [address] Calcium [Mass/Vol] 9.7 mg/dL Normal 7.6-11.0 [facility] Comment on above: Performed By: #### L 501.5200, L501.4021, L500.2500, L100.0100, L501.9520, L300.8000 ####[facility] [address] [place], [address] Chloride [Moles/Vol] 103 mmol/L Normal 98-108 [facility] Comment on above: Performed By: #### L 501.5200, L501.4021, L500.2500, L100.0100, L501.9520, L300.8000 ####[facility] [address] [place], [address] CO2 [Moles/Vol] 23.7 mmol/L Normal 21.0-32.0 [facility] Comment on above: Performed By: #### L 501.5200, L501.4021, L500.2500, L100.0100, L501.9520, L300.8000 ####[facility] [address] [place], [address] Creatinine [Mass/Vol] 0.69 mg/dL Low 0.70-1.20 [facility] Comment on above: Performed By: #### L 501.5200, L501.4021, L500.2500, L100.0100, L501.9520, L300.8000 ####[facility] [address] [place], [address] ECRCL 103.41 ml/min Normal 50-250 [facility] Comment on above: Performed By: #### L 501.5200, L501.4021, L500.2500, L100.0100, L501.9520, L300.8000 ####[facility] [address] [place], [address] GAP 12 Normal 5-15 [facility] Comment on above: Performed By: #### L 501.5200, L501.4021, L500.2500, L100.0100, L501.9520, L300.8000 ####[facility] [address] [place], [address] GFR/1.73 sq M.predicted among non-blacks MDRD (S/P/Bld) [Vol rate/Area] 105 mL/min/{1.73_m2} Normal >60 [facility] Comment on above: Result Comment: mL/m in/1.73m2 CKD-EPI Creatinine Equation (2020) Performed By: #### L 501.5200, L501.4021, L500.2500, L100.0100, L501.9520, L300.8000 ####[facility] [address] [place], [address] Glucose [Mass/Vol] 109 mg/dL High 70-99 [facility] Comment on above: Performed By: #### L 501.5200, L501.4021, L500.2500, L100.0100, L501.9520, L300.8000 ####[facility] [address] [place], [address] Potassium [Moles/Vol] 3.9 mmol/L Normal 3.3-5.1 [facility] Comment on above: Performed By: #### L 501.5200, L501.4021, L500.2500, L100.0100, L501.9520, L300.8000 ####[facility] [address] [place], [address] Sodium [Moles/Vol] 139 mmol/L Normal 133-145 [facility] Comment on above: Performed By: #### L 501.5200, L501.4021, L500.2500, L100.0100, L501.9520, L300.8000 ####[facility] [address] [place], [address] Urea nitrogen [Mass/Vol] 16 mg/dL Normal 4-19 [facility] Comment on above: Performed By: #### L 501.5200, L501.4021, L500.2500, L100.0100, L501.9520, L300.8000 ####[facility] [address] [place], [address] Basophil percentageOrdered B y: Victor Hugo Suh on 11-05-2024 Basophils/100 WBC (Bld) 0.8 % 0-1 [facility] CBC W/Diff, Automatedon Absolute Lymph 1.60 X10 3/uL Normal 0.83-4.51 [facility] Comment on above: Performed By: #### L 501.5200, L501.4021, L500.2500, L100.0100, L501.9520, L300.8000 ####[facility] [address] [place], [address] Absolute Neut 4.3 X10 3/uL Normal 2.0-7.7 [facility] Comment on above: Performed By: #### L 501.5200, L501.4021, L500.2500, L100.0100, L501.9520, L300.8000 ####[facility] [address] [place], [address] Basophils/100 WBC (Bld) 0.8 % Normal 0-1 [facility] Comment on above: Performed By: #### L 501.5200, L501.4021, L500.2500, L100.0100, L501.9520, L300.8000 ####[facility] [address] [place], [address] Eosinophils/100 WBC (Bld) 0.5 % Normal 0-5 [facility] Comment on above: Performed By: #### L 501.5200, L501.4021, L500.2500, L100.0100, L501.9520, L300.8000 ####[facility] [address] [place], [address] Erythrocyte distribution width (RBC) [Ratio] 12.5 % Normal 11.6-14.6 [facility] Comment on above: Performed By: #### L 501.5200, L501.4021, L500.2500, L100.0100, L501.9520, L300.8000 ####[facility] [address] [place], [address] Hematocrit (Bld) [Volume fraction] 39.4 % Normal 37-47 [facility] Comment on above: Performed By: #### L 501.5200, L501.4021, L500.2500, L100.0100, L501.9520, L300.8000 ####[facility] [address] [place], [address] Hemoglobin (Bld) [Mass/Vol] 13.4 g/dL Normal 12.0-15.0 [facility] Comment on above: Performed By: #### L 501.5200, L501.4021, L500.2500, L100.0100, L501.9520, L300.8000 ####[facility] [address] [place], [address] IG% 0.500 Normal 0.0-0.9 [facility] Comment on above: Result Comment: IG% - Immature Granulocytes (promyelocytes, myelocytes and metamyelocytes) > 1% indicates that a LEFT SHIFT is Present. Performed By: #### L 501.5200, L501.4021, L500.2500, L100.0100, L501.9520, L300.8000 ####[facility] [address] [place], [address] Lymphocytes/100 WBC (Bld) 24.7 % Normal 19-41 [facility] Comment on above: Performed By: #### L 501.5200, L501.4021, L500.2500, L100.0100, L501.9520, L300.8000 ####[facility] [address] [place], [address] MCH (RBC) [Entitic mass] 31.9 pg Normal 27.0-32.0 [facility] Comment on above: Performed By: #### L 501.5200, L501.4021, L500.2500, L100.0100, L501.9520, L300.8000 ####[facility] [address] [place], [address] MCHC (RBC) [Mass/Vol] 34.0 g/dL Normal 32-36 [facility] Comment on above: Performed By: #### L 501.5200, L501.4021, L500.2500, L100.0100, L501.9520, L300.8000 ####[facility] [address] [place], [address] MCV (RBC) [Entitic vol] 93.8 fL Normal 81-99 [facility] Comment on above: Performed By: #### L 501.5200, L501.4021, L500.2500, L100.0100, L501.9520, L300.8000 ####[facility] [address] [place], [address] Monocytes/100 WBC (Bld) 7.7 % Normal 0-10 [facility] Comment on above: Performed By: #### L 501.5200, L501.4021, L500.2500, L100.0100, L501.9520, L300.8000 ####[facility] [address] [place], [address] Neutrophils/100 WBC (Bld) 65.8 % Normal 47-70 [facility] Comment on above: Performed By: #### L 501.5200, L501.4021, L500.2500, L100.0100, L501.9520, L300.8000 ####[facility] [address] [place], [address] Nucleated RBC (Bld) [#/Vol] 0 10*3/uL Normal 0-5 [facility] Comment on above: Performed By: #### L 501.5200, L501.4021, L500.2500, L100.0100, L501.9520, L300.8000 ####[facility] [address] [place], [address] Platelet mean volume (Bld) [Entitic vol] 9.9 fL Normal 6.2-12.0 [facility] Comment on above: Performed By: #### L 501.5200, L501.4021, L500.2500, L100.0100, L501.9520, L300.8000 ####[facility] [address] [place], [address] Platelets (Bld) [#/Vol] 290 10*3/uL Normal 150-450 [facility] Comment on above: Performed By: #### L 501.5200, L501.4021, L500.2500, L100.0100, L501.9520, L300.8000 ####[facility] [address] [place], [address] RBC (Bld) [#/Vol] 4.20 10*6/uL Normal 4.2-5.4 [facility] Comment on above: Performed By: #### L 501.5200, L501.4021, L500.2500, L100.0100, L501.9520, L300.8000 ####[facility] [address] [place], [address] RDW SD 42.7 fl Normal 35.1-43.9 [facility] Comment on above: Performed By: #### L 501.5200, L501.4021, L500.2500, L100.0100, L501.9520, L300.8000 ####[facility] [address] [place], [address] WBC (Bld) [#/Vol] 6.5 10*3/uL Normal 4.4-11.0 [facility] Comment on above: Performed By: #### L 501.5200, L501.4021, L500.2500, L100.0100, L501.9520, L300.8000 ####[facility] [address] [place], [address] Carbon dioxide, total [Moles /volume] in Central venous bloodOrdered By: Victor Hugo Suh on 11-05-2024 CO2 [Moles/Vol] 23.7 mmol/L 21.0-32.0 [facility] Chest PA and Lateralon 11-05 Chest PA and Lateral [facility] [address] [place] [address] Chest PA and Lateral MR#: [id number] Acct: [id number] Name: VERONICA UMAÑA Rep #: [id number] : 1975 F 49 From: Bhanu Becker MD PCP: Care Physician,No Primary Status: [facility] ER Study: Chest PA and Lateral Date of Exam: 11/05/24 Exam# [id number] Ordering Dr: Victor Hugo Suh DO PROCEDURE: CHEST PA AND LATERAL 11/05/2024 REASON FOR EXAM: CHEST PAIN TECHNIQUE: Frontal and lateral views of the chest. COMPARISON: None FINDINGS: Hardware: None Heart: The heart size is normal. Mediastinum: The mediastinal contour is unremarkable. Lungs: The lungs are clear. Bones: The bones are unremarkable. RAD/Chest PA and Lateral IMPRESSION: No acute cardiopulmonary abnormality. Reading Location: [id number] CC: Dr. Victor Hugo Suh, ; No Primary Care Physician Crocheter: Signed Normal [facility] Chloride assayOrdered By: Luis Suh on 11-05-2024 Chloride [Moles/Vol] 103 mmol/L 98-108 [facility] D-Dimer Quantitative (DVT/PE )on 11-05-2024 D-DIMER QUANT < 0.27 Low 0.27-0.49 [facility] Comment on above: Result Comment: NORM AL D-Dimer level (<0.50) indicates no DVT or PE. Performed By: #### L 501.5200, L501.4021, L500.2500, L100.0100, L501.9520, L300.8000 ####[facility] [address] [place], [address] Emergency Department Summary on 11-05-2024 Emergency Department Summary [facility] Medical Records Department [address] [place] [address] Emergency Department Summary 11/05/24 MR#: [id number] Acct: [id number] Name: VERONICA UMAÑA Rep #: [id number] : 1975 49 From: Victor Hugo Suh [...] intact Psych: Cooperative, appropriate mood and affect [facility] Medical History Fear of [...] (From Zithromax AdvReac Upset Verified 10/31/24 07:24 Z-Obubacar) Stomach Family History Father Hypertension Yesica-Danlos syndrome [...] safe at home: Yes additional social history: Piesfxb-Siptx-Xwcbddafu 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 Normal [facility] Eosinophil percentageOrdered By: Victor Hugo Suh on 11-05-2024 Eosinophils/100 WBC (Bld) 0.5 % 0-5 [facility] Erythrocyte distribution wid th ratioOrdered By: Victor Hugo Suh on 11-05-2024 Erythrocyte distribution width (RBC) [Ratio] 12.5 % 11.6-14.6 [facility] Erythrocyte distribution wid th standard deviationOrdered By: Victor Hugo Campoverde on 11-05-2024 Erythrocyte distribution width (RBC) [Ratio] 42.7 fl 35.1-43.9 [facility] Glomerular filtration rate ( GFR) estimation/1.73 sq m using serum, plasma, or whole bOrdered By: Victor Hugo Suh on 11-05-2024 GFR/1.73 sq M.predicted among non-blacks MDRD (S/P/Bld) [Vol rate/Area] 105 mL/min/{1.73_m2} >60 [facility] Comment on above: mL/min/1.73m2 CKD-EP I Creatinine Equation (2020) Hematocrit Auto (Bld) [Volum e fraction]Ordered By: Victor Hugo Suh on 11-05-2024 Hematocrit (Bld) [Volume fraction] 39.4 % 37-47 [facility] Hemoglobin measurementOrdere d By: Victor Hugo Suh on 11-05-2024 Hemoglobin (Bld) [Mass/Vol] 13.4 g/dL 12.0-15.0 [facility] Immature granulocytes/100 WB C Auto (Bld)Ordered By: Victor Hugo Suh on 11-05-2024 Immature granulocytes/100 WBC (Bld) 0.500 % 0.0-0.9 [facility] Comment on above: IG% - Immature Granu locytes (promyelocytes, myelocytes and metamyelocytes) > 1% indicates that a LEFT SHIFT is Present. L499.0042on 11-05-2024 Trop T High Sen < 6 Normal <=14 [facility] Comment on above: Performed By: #### L 499.0042 #### [facility] [address] [place], [address] L501.4021on 11-05-2024 Trop T High Sen < 6 Normal <=14 [facility] Comment on above: Performed By: #### L 501.5200, L501.4021, L500.2500, L100.0100, L501.9520, L300.8000 ####[facility] [address] [place], [address] MCV (mean corpuscular volume ) determinationOrdered By: Victor Hugo Suh on 11-05-2024 MCV (RBC) [Entitic vol] 93.8 fL 81-99 [facility] Magnesiumon 11-05-2024 Magnesium [Mass/Vol] 2.3 mg/dL High 1.5-2.2 [facility] Comment on above: Performed By: #### L 501.5200, L501.4021, L500.2500, L100.0100, L501.9520, L300.8000 ####[facility] [address] [place], [address] Magnesium measurement (mass/ volume)Ordered By: Victor Hugo Suh on 11-05-2024 Magnesium (Unsp spec) [Mass/Vol] 2.3 mg/dL High 1.5-2.2 [facility] Mean corpuscular hemoglobin (MCH) determinationOrdered By: Victro Hugo Suh on 11-05-2024 MCH (RBC) [Entitic mass] 31.9 pg 27.0-32.0 [facility] Mean corpuscular hemoglobin concentration (MCHC) determinationOrdered By: Victor Hugo Suh on 11-05-2024 MCHC (RBC) [Mass/Vol] 34.0 g/dL 32-36 [facility] Mean platelet volume determi nationOrdered By: Victor Hugo Suh on 11-05-2024 Platelet mean volume (Bld) [Entitic vol] 9.9 fL 6.2-12.0 [facility] Monocyte percentageOrdered B y: Victor Hugo Suh on 11-05-2024 Monocytes/100 WBC (Bld) 7.7 % 0-10 [facility] Neutrophil percentageOrdered By: Victor Hugo Suh on 11-05-2024 Neutrophils/100 WBC (Bld) 65.8 % 47-70 [facility] Nucleated red blood cell per centageOrdered By: Victor Hugo Suh on 11-05-2024 Nucleated RBC/100 WBC (Bld) [Ratio] 0 % 0-5 [facility] Platelet countOrdered By: Luis Suh on 11-05-2024 Platelets (Bld) [#/Vol] 290 10*3/uL 150-450 [facility] Potassium measurement (mass/ volume)Ordered By: Victor Hugo Suh on 11-05-2024 Potassium (Unsp spec) [Mass/Vol] 3.9 mmol/L 3.3-5.1 [facility] RBC Auto (Bld) [#/Vol]Ordere d By: Victor Hugo Suh on 11-05-2024 RBC (Bld) [#/Vol] 4.20 10*6/uL 4.2-5.4 [facility] Serum creatinine measurement (mass/volume)Ordered By: Victor Hugo Suh on 11-05-2024 Creatinine [Mass/Vol] 0.69 mg/dL Low 0.70-1.20 [facility] Serum glucose measurement (m ass/volume)Ordered By: Victor Hugo Suh on 11-05-2024 Glucose [Mass/Vol] 109 mg/dL High 70-99 [facility] Serum or plasma calcium herberth urement (mass/volume)Ordered By: Victor Hugo Campoverde on 11-05-2024 Calcium [Mass/Vol] 9.7 mg/dL 7.6-11.0 [facility] Serum or plasma urea nitroge n measurement (mass/volume)Ordered By: Victor Hugo Suh on 11-05-2024 Urea nitrogen [Mass/Vol] 16 mg/dL 4-19 [facility] Sodium levelOrdered By: Chad Suh on 11-05-2024 Sodium [Moles/Vol] 139 mmol/L 133-145 [facility] TSH DL <= 0.005 mIU/L QnOrde red By: Victor Hugo Suh on 11-05-2024 TSH Qn 0.524 uIU/mL 0.300-4.200 [facility] Thyroid Stim Hormone (TSH)on 11-05-2024 TSH 0.524 uIU/mL Normal 0.300-4.200 [facility] Comment on above: Performed By: #### L 501.5200, L501.4021, L500.2500, L100.0100, L501.9520, L300.8000 ####[facility] [address] [place], [place], [address] Troponin T.cardiac [Mass/vol ume] in Serum or Plasma by High sensitivity methodOrdered By: Victor Hugo Suh on 11-05-2024 Troponin T.cardiac High sensitivity method [Mass/Vol] < 6 ng/L <14 [facility] Troponin T.cardiac High sensitivity method [Mass/Vol] < 6 ng/L <14 [facility] Comment on above: Delta: 7 on 10/26/24 White blood cell (WBC) count Ordered By: Victor Hugo Suh on 11-05-2024 WBC (Bld) [#/Vol] 6.5 10*3/uL 4.4-11.0 [facility] 12 Lead EKGon 10-31-2024 12 Lead EKG [facility] [address] [place] [address] 12 Lead EKG 10/31/24 0753 MR#: [id number] Acct: [id number] Name: VERONICA UMAÑA Rep #: [id number] : 1975 49 From: Jennyfer Espinoza MD Attending Dr: Status: DEP ER Ordering [...] Normal ECG Confirmed by JENNYFER ESPINOZA ([id number]), story editor VERONICA ESCOBAR ([id number]) on 11/05/2024 8:05:56 AM Referred By: Confirmed By: JENNYFER ESPINOZA 11/05/24 0805 Date Jennyfer Espinoza MD CC: RAYRAY Aguilar; Dr. Jose Alexis MD Signed Normal [facility] Absolute lymphocyte countOrd ered By: Jose Alexis on 10-31-2024 Lymphocytes Auto (Unsp spec) [#/Vol] 1.57 10*3/uL 0.83-4.51 [facility] Absolute neutrophil countOrd ered By: Jose Alexis on 10-31-2024 Neutrophils (Bld) [#/Vol] 7.0 10*3/uL 2.0-7.7 [facility] Alcohol, Blood (Medical)-Ser umon 10-31-2024 SERUM ETOH < 10.1 Normal <=10.0 [facility] Comment on above: Result Comment: This test is for medical purposes only. The legal definition of intoxication varies according to local law. Performed By: #### L 501.9100, L700.6800, L505.5000 ####[facility] [address] [place], [address] Amphetamine detection with 1 000 ng/mL as cutoffOrdered By: Jose Alexis on 10-31-2024 Amphetamines Screen method >1000 ng/mL Ql (U) Negative < 200 ng/mL [facility] Anion gap in Serum or Plasma Ordered By: Jose Alexis on 10-31-2024 Anion gap [Moles/Vol] 12 mmol/L 5-15 [facility] Automated lymphocyte count a s percentage of total leukocytesOrdered By: Jose Alexis on 10-31-2024 Lymphocytes/100 WBC Auto (Unsp spec) 16.8 % Low 19- [facility] BUN/creatinine ratioOrdered By: Jose Alexis on 10-31-2024 Urea nitrogen/Creatinine [Mass ratio] 14.4 mg/mg 10-20 [facility] Basophil percentageOrdered B y: Jose Alexis on 10-31-2024 Basophils/100 WBC (Bld) 0.6 % 0-1 [facility] Bilirubin, totalOrdered By: Jose Alexis on 10-31-2024 Bilirubin [Mass/Vol] 0.86 mg/dL 0.00-1.30 [facility] CBC W/Diff, Automatedon 10-05 Absolute Lymph 1.57 X10 3/uL Normal 0.83-4.51 [facility] Comment on above: Performed By: #### L 100.0100, L500.4050 ####[facility] [address] [place], [address] Absolute Neut 7.0 X10 3/uL Normal 2.0-7.7 [facility] Comment on above: Performed By: #### L 100.0100, L500.4050 ####[facility] [address] [place], [address] Basophils/100 WBC (Bld) 0.6 % Normal 0-1 [facility] Comment on above: Performed By: #### L 100.0100, L500.4050 ####[facility] [address] [place], [address] Eosinophils/100 WBC (Bld) 0.1 % Normal 0-5 [facility] Comment on above: Performed By: #### L 100.0100, L500.4050 ####[facility] [address] [place], [address] Erythrocyte distribution width (RBC) [Ratio] 12.6 % Normal 11.6-14.6 [facility] Comment on above: Performed By: #### L 100.0100, L500.4050 ####[facility] [address] [place], [address] Hematocrit (Bld) [Volume fraction] 38.9 % Normal 37-47 [facility] Comment on above: Performed By: #### L 100.0100, L500.4050 ####[facility] [address] [place], [address] Hemoglobin (Bld) [Mass/Vol] 13.5 g/dL Normal 12.0-15.0 [facility] Comment on above: Performed By: #### L 100.0100, L500.4050 ####[facility] [address] [place], [address] IG% 0.500 Normal 0.0-0.9 [facility] Comment on above: Result Comment: IG% - Immature Granulocytes (promyelocytes, myelocytes and metamyelocytes) > 1% indicates that a LEFT SHIFT is Present. Performed By: #### L 100.0100, L500.4050 ####[facility] [address] [place], [address] Lymphocytes/100 WBC (Bld) 16.8 % Low 19-41 [facility] Comment on above: Performed By: #### L 100.0100, L500.4050 ####[facility] [address] [place], [address] MCH (RBC) [Entitic mass] 32.2 pg High 27.0-32.0 [facility] Comment on above: Performed By: #### L 100.0100, L500.4050 ####[facility] [address] [place], [address] MCHC (RBC) [Mass/Vol] 34.7 g/dL Normal 32-36 [facility] Comment on above: Performed By: #### L 100.0100, L500.4050 ####[facility] [address] [place], [address] MCV (RBC) [Entitic vol] 92.8 fL Normal 81-99 [facility] Comment on above: Performed By: #### L 100.0100, L500.4050 ####[facility] [address] [place], [address] Monocytes/100 WBC (Bld) 7.4 % Normal 0-10 [facility] Comment on above: Performed By: #### L 100.0100, L500.4050 ####[facility] [address] [place], [address] Neutrophils/100 WBC (Bld) 74.6 % High 47-70 [facility] Comment on above: Performed By: #### L 100.0100, L500.4050 ####[facility] [address] [place], [address] Nucleated RBC (Bld) [#/Vol] 0 10*3/uL Normal 0-5 [facility] Comment on above: Performed By: #### L 100.0100, L500.4050 ####[facility] [address] [place], [address] Platelet mean volume (Bld) [Entitic vol] 9.9 fL Normal 6.2-12.0 [facility] Comment on above: Performed By: #### L 100.0100, L500.4050 ####[facility] [address] [place], [address] Platelets (Bld) [#/Vol] 314 10*3/uL Normal 150-450 [facility] Comment on above: Performed By: #### L 100.0100, L500.4050 ####[facility] [address] [place], [address] RBC (Bld) [#/Vol] 4.19 10*6/uL Low 4.2-5.4 [facility] Comment on above: Performed By: #### L 100.0100, L500.4050 ####[facility] [address] [place], [address] RDW SD 42.2 fl Normal 35.1-43.9 [facility] Comment on above: Performed By: #### L 100.0100, L500.4050 ####[facility] [address] [place], [address] WBC (Bld) [#/Vol] 9.4 10*3/uL Normal 4.4-11.0 [facility] Comment on above: Performed By: #### L 100.0100, L500.4050 ####[facility] [address] [place], [address] Carbon dioxide, total [Moles /volume] in Central venous bloodOrdered By: Jose Alexis on 10-31-2024 CO2 [Moles/Vol] 23.6 mmol/L 21.0-32.0 [facility] Chloride assayOrdered By: Lex Alexis on 10-31-2024 Chloride [Moles/Vol] 101 mmol/L 98-108 [facility] Comprehensive Metabolic Prof ilon 10-31-2024 Albumin [Mass/Vol] 4.6 g/dL Normal 3.5-5.0 [facility] Comment on above: Performed By: #### L 100.0100, L500.4050 ####[facility] [address] [place], [address] Albumin/Globulin [Mass ratio] 1.8 {ratio} Normal 0.9-2.4 [facility] Comment on above: Performed By: #### L 100.0100, L500.4050 ####[facility] [address] [place], [address] ALK PHOS 65 U/L Normal 35-104 [facility] Comment on above: Performed By: #### L 100.0100, L500.4050 ####[facility] [address] [place], [address] ALT [Catalytic activity/Vol] 33 U/L Normal <=34 [facility] Comment on above: Performed By: #### L 100.0100, L500.4050 ####[facility] [address] [place], [address] AST [Catalytic activity/Vol] 22 U/L Normal <=31 [facility] Comment on above: Performed By: #### L 100.0100, L500.4050 ####[facility] [address] [place], [address] Bilirubin [Mass/Vol] 0.86 mg/dL Normal 0.00-1.30 [facility] Comment on above: Performed By: #### L 100.0100, L500.4050 ####[facility] [address] [place], [address] BUN/CRE 14.4 RATIO Normal 10-20 [facility] Comment on above: Performed By: #### L 100.0100, L500.4050 ####[facility] [address] [place], [address] Calcium [Mass/Vol] 9.7 mg/dL Normal 7.6-11.0 [facility] Comment on above: Performed By: #### L 100.0100, L500.4050 ####[facility] [address] [place], [address] Chloride [Moles/Vol] 101 mmol/L Normal 98-108 [facility] Comment on above: Performed By: #### L 100.0100, L500.4050 ####[facility] [address] [place], [address] CO2 [Moles/Vol] 23.6 mmol/L Normal 21.0-32.0 [facility] Comment on above: Performed By: #### L 100.0100, L500.4050 ####[facility] [address] [place], [address] Creatinine [Mass/Vol] 0.60 mg/dL Low 0.70-1.20 [facility] Comment on above: Performed By: #### L 100.0100, L500.4050 ####[facility] [address] [place], [address] ECRCL 116.86 ml/min Normal 50-250 [facility] Comment on above: Performed By: #### L 100.0100, L500.4050 ####[facility] [address] [place], [address] GAP 12 Normal 5-15 [facility] Comment on above: Performed By: #### L 100.0100, L500.4050 ####[facility] [address] [place], [address] GFR/1.73 sq M.predicted among non-blacks MDRD (S/P/Bld) [Vol rate/Area] 108 mL/min/{1.73_m2} Normal >60 [facility] Comment on above: Result Comment: mL/m in/1.73m2 CKD-EPI Creatinine Equation (2020) Performed By: #### L 100.0100, L500.4050 ####[facility] [address] [place], [address] Globulin (S) [Mass/Vol] 2.5 g/dL Normal 2.2-4.2 [facility] Comment on above: Performed By: #### L 100.0100, L500.4050 ####[facility] [address] [place], [address] Glucose [Mass/Vol] 133 mg/dL High 70-99 [facility] Comment on above: Performed By: #### L 100.0100, L500.4050 ####[facility] [address] [place], [address] Potassium [Moles/Vol] 3.8 mmol/L Normal 3.3-5.1 [facility] Comment on above: Performed By: #### L 100.0100, L500.4050 ####[facility] [address] [place], [address] Sodium [Moles/Vol] 137 mmol/L Normal 133-145 [facility] Comment on above: Performed By: #### L 100.0100, L500.4050 ####[facility] [address] [place], [address] T PROT 7.1 g/dL Normal 5.9-8.4 [facility] Comment on above: Performed By: #### L 100.0100, L500.4050 ####[facility] [address] [place], [address] Urea nitrogen [Mass/Vol] 9 mg/dL Normal 4-19 [facility] Comment on above: Performed By: #### L 100.0100, L500.4050 ####[facility] [address] 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 Normal [facility] Eosinophil percentageOrdered By: Jose Alexis on 10-31-2024 Eosinophils/100 WBC (Bld) 0.1 % 0-5 [facility] Erythrocyte distribution wid th ratioOrdered By: Jose Alexis on 10-31-2024 Erythrocyte distribution width (RBC) [Ratio] 12.6 % 11.6-14.6 [facility] Erythrocyte distribution wid th standard deviationOrdered By: Jose Alexis on 10-31-2024 Erythrocyte distribution width (RBC) [Ratio] 42.2 fl 35.1-43.9 [facility] Glomerular filtration rate ( GFR) estimation/1.73 sq m using serum, plasma, or whole bOrdered By: Jose Alexis on 10-31-2024 GFR/1.73 sq M.predicted among non-blacks MDRD (S/P/Bld) [Vol rate/Area] 108 mL/min/{1.73_m2} >60 [facility] Comment on above: mL/min/1.73m2 CKD-EP I Creatinine Equation (2020) Hematocrit Auto (Bld) [Volum e fraction]Ordered By: Jose Alexis on 10-31-2024 Hematocrit (Bld) [Volume fraction] 38.9 % 37-47 [facility] Hemoglobin measurementOrdere d By: Jose Alexis on 10-31-2024 Hemoglobin (Bld) [Mass/Vol] 13.5 g/dL 12.0-15.0 [facility] Immature granulocytes/100 WB C Auto (Bld)Ordered By: Jose Alexis on 10-31-2024 Immature granulocytes/100 WBC (Bld) 0.500 % 0.0-0.9 [facility] Comment on above: IG% - Immature Granu locytes (promyelocytes, myelocytes and metamyelocytes) > 1% indicates that a LEFT SHIFT is Present. Laboratory - Chemistry and C hemistry - challengeOrdered By: Jose Alexis on 10-31-2024 AST [Catalytic activity/Vol] 22 U/L <32 [facility] MCV (mean corpuscular volume ) determinationOrdered By: Jose Alexis on 10-31-2024 MCV (RBC) [Entitic vol] 92.8 fL 81-99 [facility] Mean corpuscular hemoglobin (MCH) determinationOrdered By: Jose Alexis on 10-31-2024 MCH (RBC) [Entitic mass] 32.2 pg High 27.0-32.0 [facility] Mean corpuscular hemoglobin concentration (MCHC) determinationOrdered By: Jose Alexis on 10-31-2024 MCHC (RBC) [Mass/Vol] 34.7 g/dL 32-36 [facility] Mean platelet volume determi nationOrdered By: Jose Alexis on 10-31-2024 Platelet mean volume (Bld) [Entitic vol] 9.9 fL 6.2-12.0 [facility] Monocyte percentageOrdered B y: Jose Alexis on 10-31-2024 Monocytes/100 WBC (Bld) 7.4 % 0-10 [facility] Neutrophil percentageOrdered By: Jose Alexis on 10-31-2024 Neutrophils/100 WBC (Bld) 74.6 % High 47-70 [facility] No Panel InformationOrdered By: Jose Alexis on 10-31-2024 Urine Buprenorphine Qualitative Negative < 200 ng/mL [facility] Urine Oxycodone Screen Negative < 100 ng/mL [facility] Nucleated red blood cell per centageOrdered By: Jose Alexis on 10-31-2024 Nucleated RBC/100 WBC (Bld) [Ratio] 0 % 0-5 [facility] Platelet countOrdered By: Lex Alexis on 10-31-2024 Platelets (Bld) [#/Vol] 314 10*3/uL 150-450 [facility] Potassium measurement (mass/ volume)Ordered By: Jose Alexis on 10-31-2024 Potassium (Unsp spec) [Mass/Vol] 3.8 mmol/L 3.3-5.1 [facility] ,Serum,hCG Quali.on 10-31-2024 HCG, SERUM QUAL Negative Normal [facility] Comment on above: Performed By: #### L 501.9100, L700.6800, L505.5000 ####[facility] [address] [place], [place], [id number] Quantitative urine opiates m easurementOrdered By: Jose Alexis on 10-31-2024 Opiates Ql (U) Negative < 300 ng/mL [facility] RBC Auto (Bld) [#/Vol]Ordere d By: Jose Alexis on 10-31-2024 RBC (Bld) [#/Vol] 4.19 10*6/uL Low 4.2-5.4 [facility] Screening urine fentanyl kristine surementOrdered By: Jose Alexis on 10-31-2024 fentaNYL Screen Ql (U) Negative [facility] Serum beta-hCG test, qualita tiveOrdered By: Jose Alexis on 10-31-2024 Beta HCG ( test) Ql Negative [facility] Serum creatinine measurement (mass/volume)Ordered By: Jose Alexis on 10-31-2024 Creatinine [Mass/Vol] 0.60 mg/dL Low 0.70-1.20 [facility] Serum globulin measurementOr dered By: Jose Alexis on 10-31-2024 Globulin (S) [Mass/Vol] 2.5 g/dL 2.2-4.2 [facility] Serum glucose measurement (m ass/volume)Ordered By: Jose Alexis on 10-31-2024 Glucose [Mass/Vol] 133 mg/dL High 70-99 [facility] Serum or plasma alanine kirk otransferase (ALT) measurementOrdered By: Jose Alexis on 10-31-2024 ALT [Catalytic activity/Vol] 33 U/L <35 [facility] Serum or plasma albumin herberth urement (mass/volume)Ordered By: Jose Alexis on 10-31-2024 Albumin [Mass/Vol] 4.6 g/dL 3.5-5.0 [facility] Serum or plasma albumin/glob ulin mass ratioOrdered By: Joes Alexis on 10-31-2024 Albumin/Globulin [Mass ratio] 1.8 {ratio} 0.9-2.4 [facility] Serum or plasma alkaline joseph sphatase measurementOrdered By: Jose Alexis on 10-31-2024 ALP [Catalytic activity/Vol] 65 U/L 35-104 [facility] Serum or plasma calcium herberth urement (mass/volume)Ordered By: Jose Alexis on 10-31-2024 Calcium [Mass/Vol] 9.7 mg/dL 7.6-11.0 [facility] Serum or plasma ethanol herberth urement (mass/volume)Ordered By: Jose Alexis on 10-31-2024 Ethanol [Mass/Vol] mg/dL <10.1 [facility] Comment on above: This test is for med ical purposes only. The legal definition of intoxication varies according to local law. Serum or plasma urea nitroge n measurement (mass/volume)Ordered By: Jose Alexis on 10-31-2024 Urea nitrogen [Mass/Vol] 9 mg/dL 4-19 [facility] Sodium levelOrdered By: Jose Alexis on 10-31-2024 Sodium [Moles/Vol] 137 mmol/L 133-145 [facility] Total proteinOrdered By: Lauren Alexis on 10-31-2024 Protein [Mass/Vol] 7.1 g/dL 5.9-8.4 [facility] Urine Drug Screen (VISTA)on 10-31-2024 AMPHETAMINES Negative Normal <1000 ng/mL [facility] Comment on above: Performed By: #### L 501.9100, L700.6800, L505.5000 ####[facility] [address] [place], [place], [id number] BARBITIURATES Negative Normal < 200 ng/mL [facility] Comment on above: Performed By: #### L 501.9100, L700.6800, L505.5000 ####[facility] [address] [place], [address] BENZODIAZIPINE Negative Normal < 200 ng/mL [facility] Comment on above: Performed By: #### L 501.9100, L700.6800, L505.5000 ####[facility] [address] [place], [address] BUP Ur Drug Scr Negative Normal < 200 ng/mL [facility] Comment on above: Performed By: #### L 501.9100, L700.6800, L505.5000 ####[facility] [address] [place], [address] COCAINE Negative Normal < 300 ng/mL [facility] Comment on above: Performed By: #### L 501.9100, L700.6800, L505.5000 ####[facility] [address] [place], [address] Fentanyl Negative Normal [facility] Comment on above: Performed By: #### L 501.9100, L700.6800, L505.5000 ####[facility] [address] [place], [address] METHADONE Negative Normal < 300 ng/mL [facility] Comment on above: Performed By: #### L 501.9100, L700.6800, L505.5000 ####[facility] [address] [place], [address] OPIATES Negative Normal < 300 ng/mL [facility] Comment on above: Performed By: #### L 501.9100, L700.6800, L505.5000 ####[facility] [address] [place], [address] OXYCODONE Negative Normal < 100 ng/mL [facility] Comment on above: Performed By: #### L 501.9100, L700.6800, L505.5000 ####[facility] [address] [place], [address] PCP Negative Normal < 25 ng/mL [facility] Comment on above: Performed By: #### L 501.9100, L700.6800, L505.5000 ####[facility] [address] [place], [address] THC Negative Normal < 50 ng/mL [facility] Comment on above: Performed By: #### L 501.9100, L700.6800, L505.5000 ####[facility] [address], [address] Urine benzodiazepine levelOr dered By: Jose Alexis on 10-31-2024 Benzodiazepines Ql (U) Negative < 200 ng/mL [facility] Urine cocaine levelOrdered B y: Jose Alexis on 10-31-2024 Cocaine Ql (U) Negative < 300 ng/mL [facility] Urine wkhbc-8-vyfijgiwbxxlwy abinol (THC) measurementOrdered By: Jose Alexis on 10-31-2024 Cannabinoids Screen Ql (U) Negative < 50 ng/mL [facility] Urine phencyclidine (PCP) de tectionOrdered By: Jose Alexis on 10-31-2024 Phencyclidine Ql (U) Negative < 25 ng/mL [facility] White blood cell (WBC) count Ordered By: Jose Alexis on 10-31-2024 WBC (Bld) [#/Vol] 9.4 10*3/uL 4.4-11.0 [facility] 12 Lead EKGon 10-26-2024 12 Lead EKG [facility] [address] [place] [address] 12 Lead EKG 10/26/24 0624 MR#: [id number] Acct: [id number] Name: VERONICA UMAÑA Rep #: [id number] : 1975 49 From: Dillon Florez MD [...] Normal sinus rhythm Normal ECG Confirmed by VIKKI COLLINS, DILLON ([id number]), story editor VERONICA ESCOBAR ([id number]) on 10/30/2024 6:59:46 AM Referred By: Confirmed By: DILLON FLOREZ MD 10/30/2459 Date Dillon Florez MD CC: RN NICURadha Aguilar; Dr. Ramesh Coffey, DO Signed Normal [facility] Absolute lymphocyte countOrd ered By: Ramesh Coffey on 10-26-2024 Lymphocytes Auto (Unsp spec) [#/Vol] 1.51 10*3/uL 0.83-4.51 [facility] Absolute neutrophil countOrd ered By: Ramesh Coffey on 10-26-2024 Neutrophils (Bld) [#/Vol] 5.4 10*3/uL 2.0-7.7 [facility] Anion gap in Serum or Plasma Ordered By: Ramesh Coffey on 10-26-2024 Anion gap [Moles/Vol] 14 mmol/L 5-15 [facility] Automated lymphocyte count a s percentage of total leukocytesOrdered By: aRmesh Coffey on 10-26-2024 Lymphocytes/100 WBC Auto (Unsp spec) 19.7 % 19-41 [facility] BUN/creatinine ratioOrdered By: Ramesh Coffey on 10-26-2024 Urea nitrogen/Creatinine [Mass ratio] 12.6 mg/mg 10-20 [facility] Basophil percentageOrdered B y: Ramesh Coffey on 10-26-2024 Basophils/100 WBC (Bld) 0.5 % 0-1 [facility] Bilirubin Test strip Ql (U)O rdered By: Ramesh Coffey on 10-26-2024 Bilirubin Ql (U) Negative Negative [facility] Bilirubin, totalOrdered By: Ramesh Coffey on 10-26-2024 Bilirubin [Mass/Vol] 0.86 mg/dL 0.00-1.30 [facility] CBC W/Diff, Automatedon 10-05 Absolute Lymph 1.51 X10 3/uL Normal 0.83-4.51 [facility] Comment on above: Performed By: #### L 100.0100, L501.2450, L500.4050, L501.4021 #### [facility] [address] [place], [address] Absolute Neut 5.4 X10 3/uL Normal 2.0-7.7 [facility] Comment on above: Performed By: #### L 100.0100, L501.2450, L500.4050, L501.4021 #### [facility] [address] [place], [address] Basophils/100 WBC (Bld) 0.5 % Normal 0-1 [facility] Comment on above: Performed By: #### L 100.0100, L501.2450, L500.4050, L501.4021 #### [facility] [address] [place], [address] Eosinophils/100 WBC (Bld) 0.3 % Normal 0-5 [facility] Comment on above: Performed By: #### L 100.0100, L501.2450, L500.4050, L501.4021 #### [facility] [address] [place], [address] Erythrocyte distribution width (RBC) [Ratio] 12.2 % Normal 11.6-14.6 [facility] Comment on above: Performed By: #### L 100.0100, L501.2450, L500.4050, L501.4021 #### [facility] [address] [place], [address] Hematocrit (Bld) [Volume fraction] 37.3 % Normal 37-47 [facility] Comment on above: Performed By: #### L 100.0100, L501.2450, L500.4050, L501.4021 #### [facility] [address] [place], [address] Hemoglobin (Bld) [Mass/Vol] 13.0 g/dL Normal 12.0-15.0 [facility] Comment on above: Performed By: #### L 100.0100, L501.2450, L500.4050, L501.4021 #### [facility] [address] [place], [address] IG% 0.500 Normal 0.0-0.9 [facility] Comment on above: Result Comment: IG% - Immature Granulocytes (promyelocytes, myelocytes and metamyelocytes) > 1% indicates that a LEFT SHIFT is Present. Performed By: #### L 100.0100, L501.2450, L500.4050, L501.4021 #### [facility] [address] [place], [address] Lymphocytes/100 WBC (Bld) 19.7 % Normal 19-41 [facility] Comment on above: Performed By: #### L 100.0100, L501.2450, L500.4050, L501.4021 #### [facility] [address] [place], [address] MCH (RBC) [Entitic mass] 32.2 pg High 27.0-32.0 [facility] Comment on above: Performed By: #### L 100.0100, L501.2450, L500.4050, L501.4021 #### [facility] [address] [place], [address] MCHC (RBC) [Mass/Vol] 34.9 g/dL Normal 32-36 [facility] Comment on above: Performed By: #### L 100.0100, L501.2450, L500.4050, L501.4021 #### [facility] [address] [place], [address] MCV (RBC) [Entitic vol] 92.3 fL Normal 81-99 [facility] Comment on above: Performed By: #### L 100.0100, L501.2450, L500.4050, L501.4021 #### [facility] [address] [place], [address] Monocytes/100 WBC (Bld) 8.5 % Normal 0-10 [facility] Comment on above: Performed By: #### L 100.0100, L501.2450, L500.4050, L501.4021 #### [facility] [address] [place], [address] Neutrophils/100 WBC (Bld) 70.5 % High 47-70 [facility] Comment on above: Performed By: #### L 100.0100, L501.2450, L500.4050, L501.4021 #### [facility] [address] [place], [address] Nucleated RBC (Bld) [#/Vol] 0 10*3/uL Normal 0-5 [facility] Comment on above: Performed By: #### L 100.0100, L501.2450, L500.4050, L501.4021 #### [facility] [address] [place], [address] Platelet mean volume (Bld) [Entitic vol] 9.6 fL Normal 6.2-12.0 [facility] Comment on above: Performed By: #### L 100.0100, L501.2450, L500.4050, L501.4021 #### [facility] [address] [place], [address] Platelets (Bld) [#/Vol] 302 10*3/uL Normal 150-450 [facility] Comment on above: Performed By: #### L 100.0100, L501.2450, L500.4050, L501.4021 #### [facility] [address] [place], [address] RBC (Bld) [#/Vol] 4.04 10*6/uL Low 4.2-5.4 [facility] Comment on above: Performed By: #### L 100.0100, L501.2450, L500.4050, L501.4021 #### [facility] [address] [place], [address] RDW SD 41.5 fl Normal 35.1-43.9 [facility] Comment on above: Performed By: #### L 100.0100, L501.2450, L500.4050, L501.4021 #### [facility] [address] [place], [address] WBC (Bld) [#/Vol] 7.7 10*3/uL Normal 4.4-11.0 [facility] Comment on above: Performed By: #### L 100.0100, L501.2450, L500.4050, L501.4021 #### [facility] [address] [place], [address] Carbon dioxide, total [Moles /volume] in Central venous bloodOrdered By: Ramesh Coffey on 10-26-2024 CO2 [Moles/Vol] 22.4 mmol/L 21.0-32.0 [facility] Chloride assayOrdered By: Ron Coffey on 10-26-2024 Chloride [Moles/Vol] 103 mmol/L 98-108 [facility] Comprehensive Metabolic Prof ilon 10-26-2024 Albumin [Mass/Vol] 4.6 g/dL Normal 3.5-5.0 [facility] Comment on above: Performed By: #### L 100.0100, L501.2450, L500.4050, L501.4021 #### [facility] [address] [place], [address] Albumin/Globulin [Mass ratio] 1.6 {ratio} Normal 0.9-2.4 [facility] Comment on above: Performed By: #### L 100.0100, L501.2450, L500.4050, L501.4021 #### [facility] [address] [place], [address] ALK PHOS 68 U/L Normal 35-104 [facility] Comment on above: Performed By: #### L 100.0100, L501.2450, L500.4050, L501.4021 #### [facility] [address] [place], [address] ALT [Catalytic activity/Vol] 49 U/L High <=34 [facility] Comment on above: Performed By: #### L 100.0100, L501.2450, L500.4050, L501.4021 #### [facility] [address] [place], [address] AST [Catalytic activity/Vol] 36 U/L High <=31 [facility] Comment on above: Performed By: #### L 100.0100, L501.2450, L500.4050, L501.4021 #### [facility] [address] [place], [address] Bilirubin [Mass/Vol] 0.86 mg/dL Normal 0.00-1.30 [facility] Comment on above: Performed By: #### L 100.0100, L501.2450, L500.4050, L501.4021 #### [facility] [address] [place], [address] BUN/CRE 12.6 RATIO Normal 10-20 [facility] Comment on above: Performed By: #### L 100.0100, L501.2450, L500.4050, L501.4021 #### [facility] [address] [place], [address] Calcium [Mass/Vol] 9.7 mg/dL Normal 7.6-11.0 [facility] Comment on above: Performed By: #### L 100.0100, L501.2450, L500.4050, L501.4021 #### [facility] [address] [place], [address] Chloride [Moles/Vol] 103 mmol/L Normal 98-108 [facility] Comment on above: Performed By: #### L 100.0100, L501.2450, L500.4050, L501.4021 #### [facility] [address] [place], [address] CO2 [Moles/Vol] 22.4 mmol/L Normal 21.0-32.0 [facility] Comment on above: Performed By: #### L 100.0100, L501.2450, L500.4050, L501.4021 #### [facility] [address] [place], [address] Creatinine [Mass/Vol] 0.70 mg/dL Normal 0.70-1.20 [facility] Comment on above: Performed By: #### L 100.0100, L501.2450, L500.4050, L501.4021 #### [facility] [address] [place], [address] ECRCL 102.34 ml/min Normal 50-250 [facility] Comment on above: Performed By: #### L 100.0100, L501.2450, L500.4050, L501.4021 #### [facility] [address] [place], [address] GAP 14 Normal 5-15 [facility] Comment on above: Performed By: #### L 100.0100, L501.2450, L500.4050, L501.4021 #### [facility] [address] [place], [address] GFR/1.73 sq M.predicted among non-blacks MDRD (S/P/Bld) [Vol rate/Area] 105 mL/min/{1.73_m2} Normal >60 [facility] Comment on above: Result Comment: mL/m in/1.73m2 CKD-EPI Creatinine Equation (2020) Performed By: #### L 100.0100, L501.2450, L500.4050, L501.4021 #### [facility] [address] [place], [address] Globulin (S) [Mass/Vol] 2.8 g/dL Normal 2.2-4.2 [facility] Comment on above: Performed By: #### L 100.0100, L501.2450, L500.4050, L501.4021 #### [facility] [address] [place], [address] Glucose [Mass/Vol] 123 mg/dL High 70-99 [facility] Comment on above: Performed By: #### L 100.0100, L501.2450, L500.4050, L501.4021 #### [facility] [address] [place], [address] Potassium [Moles/Vol] 4.1 mmol/L Normal 3.3-5.1 [facility] Comment on above: Performed By: #### L 100.0100, L501.2450, L500.4050, L501.4021 #### [facility] [address] [place], [address] Sodium [Moles/Vol] 139 mmol/L Normal 133-145 [facility] Comment on above: Performed By: #### L 100.0100, L501.2450, L500.4050, L501.4021 #### [facility] [address] [place], [address] T PROT 7.4 g/dL Normal 5.9-8.4 [facility] Comment on above: Performed By: #### L 100.0100, L501.2450, L500.4050, L501.4021 #### [facility] [address] [place], [address] Urea nitrogen [Mass/Vol] 9 mg/dL Normal 4-19 [facility] Comment on above: Performed By: #### L 100.0100, L501.2450, L500.4050, L501.4021 #### [facility] [address] [place], [address] Emergency Department Summary on 10-26-2024 Emergency Department Summary [facility] Medical Records Department [address] [place] [address] Emergency Department Summary 10/26/24 MR#: [id number] Acct: [id number] Name: VERONICA UMAÑA Rep #: [id number] : 1975 49 From: Ramesh Coffey DO [...] 10/26/24 0837 Cosigner Signature (if applicable): cc: RN NICU-C Elinor Aguilar * Signed ADDENDUM by Dr. Arpan Garica MD on 10/26/24 at 0805 49-year-old female [...] concerned that she was having allergic reaction. [facility] Medical History Fear of [...] 08:42 S (more content not included)... Normal [facility] Eosinophil percentageOrdered By: Ramesh Coffey on 10-26-2024 Eosinophils/100 WBC (Bld) 0.3 % 0-5 [facility] Erythrocyte distribution wid th ratioOrdered By: Ramesh Coffey on 10-26-2024 Erythrocyte distribution width (RBC) [Ratio] 12.2 % 11.6-14.6 [facility] Erythrocyte distribution wid th standard deviationOrdered By: Ramesh Coffey on 10-26-2024 Erythrocyte distribution width (RBC) [Ratio] 41.5 fl 35.1-43.9 [facility] Glomerular filtration rate ( GFR) estimation/1.73 sq m using serum, plasma, or whole bOrdered By: Ramesh Coffey on 10-26-2024 GFR/1.73 sq M.predicted among non-blacks MDRD (S/P/Bld) [Vol rate/Area] 105 mL/min/{1.73_m2} >60 [facility] Comment on above: mL/min/1.73m2 CKD-EP I Creatinine Equation (2020) Hematocrit Auto (Bld) [Volum e fraction]Ordered By: Ramesh Coffey on 10-26-2024 Hematocrit (Bld) [Volume fraction] 37.3 % 37-47 [facility] Hemoglobin measurementOrdere d By: Ramesh Coffey on 10-26-2024 Hemoglobin (Bld) [Mass/Vol] 13.0 g/dL 12.0-15.0 [facility] Immature granulocytes/100 WB C Auto (Bld)Ordered By: Rameshnato Coffey on 10-26-2024 Immature granulocytes/100 WBC (Bld) 0.500 % 0.0-0.9 [facility] Comment on above: IG% - Immature Granu locytes (promyelocytes, myelocytes and metamyelocytes) > 1% indicates that a LEFT SHIFT is Present. Ketones Test strip Ql (U)Ord ered By: Ramesh Coffey on 10-26-2024 Ketones Ql (U) 15 mg/dl High Negative [facility] L499.0042on 10-26-2024 Trop T High Sen Normal <=14 [facility] Comment on above: Result Comment: Kimberlee franklin via OM: Ordered Performed By: #### L 499.0042 ####[facility] [address] [place], [address] L499.0043on 10-26-2024 Trop T High Sen Normal <=14 [facility] Comment on above: Result Comment: Kimberlee franklin via OM: Ordered Performed By: #### L 499.0043 ####[facility] [address] [place], [address] L501.4021on 10-26-2024 Trop T High Sen 7 ng/L Normal <=14 [facility] Comment on above: Performed By: #### L 100.0100, L501.2450, L500.4050, L501.4021 #### [facility] [address] [place], [place], [address] Laboratory - Chemistry and C hemistry - challengeOrdered By: Ramesh Coffey on 10-26-2024 AST [Catalytic activity/Vol] 36 U/L High <32 [facility] Lipaseon 10-26-2024 Lipase [Catalytic activity/Vol] 28 U/L Normal 13-75 [facility] Comment on above: Result Comment: Plea se note: LIPASE revised reference range effective 22. New Lipase methodology. Expected to produce lower values than the previous assay method. NEW Reference Range: 13 - 75 U/L Performed By: #### L 100.0100, L501.2450, L500.4050, L501.4021 #### [facility] [address] [place], [place], [address] Lipase measurementOrdered By : Ramesh Coffey on 10-26-2024 Lipase [Catalytic activity/Vol] 28 U/L 13-75 [facility] Comment on above: Please note:LIPASE r evised reference range effective 22. New Lipase methodology. Expected to produce lower values than the previous assay method. NEW Reference Range: 13 - 75 U/L MCV (mean corpuscular volume ) determinationOrdered By: Ramesh Coffey on 10-26-2024 MCV (RBC) [Entitic vol] 92.3 fL 81-99 [facility] Mean corpuscular hemoglobin (MCH) determinationOrdered By: Ramesh Coffey on 10-26-2024 MCH (RBC) [Entitic mass] 32.2 pg High 27.0-32.0 [facility] Mean corpuscular hemoglobin concentration (MCHC) determinationOrdered By: Ramesh Coffey on 10-26-2024 MCHC (RBC) [Mass/Vol] 34.9 g/dL 32-36 [facility] Mean platelet volume determi nationOrdered By: Ramesh Coffey on 10-26-2024 Platelet mean volume (Bld) [Entitic vol] 9.6 fL 6.2-12.0 [facility] Microscopic analysis of urin e for red blood cells (RBC)Ordered By: Ramesh Coffey on 10-26-2024 Microscopic analysis of urine for red blood cells (RBC) 0 SEEN /hpf 0-5 [facility] Monocyte percentageOrdered B y: Ramesh Coffey on 10-26-2024 Monocytes/100 WBC (Bld) 8.5 % 0-10 [facility] Mucus LM Ql (Urine sed)Order ed By: Ramesh Coffey on 10-26-2024 Mucus Ql (Urine sed) 0 SEEN /hpf [facility] Neutrophil percentageOrdered By: Ramesh Coffey on 10-26-2024 Neutrophils/100 WBC (Bld) 70.5 % High 47-70 [facility] Nitrite Test strip Ql (U)Ord ered By: Ramesh Coffey on 10-26-2024 Nitrite Ql (U) Negative Negative [facility] Nucleated red blood cell per centageOrdered By: Ramesh Coffey on 10-26-2024 Nucleated RBC/100 WBC (Bld) [Ratio] 0 % 0-5 [facility] Platelet countOrdered By: Ron Coffey on 10-26-2024 Platelets (Bld) [#/Vol] 302 10*3/uL 150-450 [facility] Potassium measurement (mass/ volume)Ordered By: Ramesh Coffey on 10-26-2024 Potassium (Unsp spec) [Mass/Vol] 4.1 mmol/L 3.3-5.1 [facility] Protein Test strip Ql (U)Ord ered By: Ramesh Coffey on 10-26-2024 Protein Ql (U) Negative Negative [facility] RBC Auto (Bld) [#/Vol]Ordere d By: Ramesh Coffey on 10-26-2024 RBC (Bld) [#/Vol] 4.04 10*6/uL Low 4.2-5.4 [facility] Serum creatinine measurement (mass/volume)Ordered By: Ramesh Coffey on 10-26-2024 Creatinine [Mass/Vol] 0.70 mg/dL 0.70-1.20 [facility] Serum globulin measurementOr dered By: Ramesh Coffey on 10-26-2024 Globulin (S) [Mass/Vol] 2.8 g/dL 2.2-4.2 [facility] Serum glucose measurement (m ass/volume)Ordered By: Ramesh Coffey on 10-26-2024 Glucose [Mass/Vol] 123 mg/dL High 70-99 [facility] Serum or plasma alanine kirk otransferase (ALT) measurementOrdered By: Ramesh Coffey on 10-26-2024 ALT [Catalytic activity/Vol] 49 U/L High <35 [facility] Serum or plasma albumin herberth urement (mass/volume)Ordered By: Ramesh Coffey on 10-26-2024 Albumin [Mass/Vol] 4.6 g/dL 3.5-5.0 [facility] Serum or plasma albumin/glob ulin mass ratioOrdered By: Ramesh Coffey on 10-26-2024 Albumin/Globulin [Mass ratio] 1.6 {ratio} 0.9-2.4 [facility] Serum or plasma alkaline joseph sphatase measurementOrdered By: Ramesh Coffey on 10-26-2024 ALP [Catalytic activity/Vol] 68 U/L 35-104 [facility] Serum or plasma calcium herberth urement (mass/volume)Ordered By: Ramesh Coffey on 10-26-2024 Calcium [Mass/Vol] 9.7 mg/dL 7.6-11.0 [facility] Serum or plasma urea nitroge n measurement (mass/volume)Ordered By: Ramesh Coffey on 10-26-2024 Urea nitrogen [Mass/Vol] 9 mg/dL 4-19 [facility] Sodium levelOrdered By: Dinesh Coffey on 10-26-2024 Sodium [Moles/Vol] 139 mmol/L 133-145 [facility] Squamous epithelial cells de tection in urine sediment by light microscopyOrdered By: Ramesh Coffey on 10-26-2024 Epithelial cells.squamous LM Ql (Urine sed) 5-10 SEEN /hpf 5-10 [facility] Total proteinOrdered By: Franklin Coffey on 10-26-2024 Protein [Mass/Vol] 7.4 g/dL 5.9-8.4 [facility] Troponin T.cardiac [Mass/vol ume] in Serum or Plasma by High sensitivity methodOrdered By: Ramesh Coffey on 10-26-2024 Troponin T.cardiac High sensitivity method [Mass/Vol] 7 ng/L <14 [facility] Urinalysis, Completeon 10-26 BACTERIA 2+ /hpf Normal None Seen [facility] Comment on above: Order Comment: CLEAN CATCH Performed By: #### L [id number] ####[facility] [address] [place], [address] EPI,SQUAMOUS 5-10 SEEN Normal 5-10 [facility] Comment on above: Order Comment: CLEAN CATCH Performed By: #### L [id number] ####[facility] [address] [facility] [address] WBC 0-5 SEEN Normal 0-5 [facility] Comment on above: Order Comment: CLEAN CATCH Performed By: #### L [id number] ####[facility] [address] [facility] [address] BILIRUBIN URINE Negative Normal Negative [facility] Comment on above: Order Comment: CLEAN CATCH Performed By: #### L [id number] ####[facility] [address] [place] [id number] Clarity (U) Turbid Normal Clear [facility] Comment on above: Order Comment: CLEAN CATCH Performed By: #### L [id number] ####[facility] [address] [facility] [address] Color (U) Straw Normal Yellow [facility] Comment on above: Order Comment: CLEAN CATCH Performed By: #### L [id number] ####[facility] [address] [facility] [address] GLUCOSE, UR Normal Normal Normal [facility] Comment on above: Order Comment: CLEAN CATCH Performed By: #### L [id number] ####[facility] [address] [facility] [address] KETONE UR 15 mg/dl Abnormal Negative [facility] Comment on above: Order Comment: CLEAN CATCH Performed By: #### L [id number] ####[facility] [address] [facility] [address] LEUK ESTERASE Negative Normal Negative [facility] Comment on above: Order Comment: CLEAN CATCH Performed By: #### L [id number] ####[facility] [address] [place], [address] Nitrite Ql (U) Negative Normal Negative [facility] Comment on above: Order Comment: CLEAN CATCH Performed By: #### L [id number] ####[facility] [address] [place], [address] OCCULT BLOOD-UR Negative Normal Negative [facility] Comment on above: Order Comment: CLEAN CATCH Performed By: #### L [id number] ####[facility] [address] [place], [address] pH UR 6.5 Normal 5.0 - 8.0 [facility] Comment on above: Order Comment: CLEAN CATCH Performed By: #### L [id number] ####[facility] [address] [place], [address] PROT DIPSTX Negative Normal Negative [facility] Comment on above: Order Comment: CLEAN CATCH Performed By: #### L [id number] ####[facility] [address] [place], [address] SP.GR. DIPSTX 1.010 Normal 1.002-1.030 [facility] Comment on above: Order Comment: CLEAN CATCH Performed By: #### L [id number] ####[facility] [address] [place], [address] UROBILI Normal Normal Normal [facility] Comment on above: Order Comment: CLEAN CATCH Performed By: #### L [id number] ####[facility] [address] [place], [address] Mucus Ql (Urine sed) 0 SEEN Normal [facility] Comment on above: Order Comment: CLEAN CATCH Performed By: #### L [id number] ####[facility] [address] [facility] [id number] RBC 0 SEEN Normal 0-5 [facility] Comment on above: Order Comment: CLEAN CATCH Performed By: #### L [id number] ####[facility] [address] [place], [place], [id number] Urine clarityOrdered By: Franklin Coffey on 10-26-2024 Clarity (U) Turbid Clear [facility] Urine color determinationOrd ered By: Ramesh Coffey on 10-26-2024 Color (U) Straw Yellow [facility] Urine glucose detectionOrder ed By: Ramesh Coffey on 10-26-2024 Glucose Ql (U) Normal mg/dl Normal [facility] Urine leukocyte esterase det ection by dipstickOrdered By: Ramesh Coffey on 10-26-2024 Leukocyte esterase Test strip Ql (U) Negative Negative [facility] Urine pHOrdered By: Ramesh mendieta on 10-26-2024 pH (U) 6.5 [pH] 5.0 - 8.0 [facility] Urine sediment bacteria coun t by microscopy (number/high power field)Ordered By: Ramesh Coffey on 10-26-2024 Bacteria LM.HPF (Urine sed) [#/Area] 2 /[HPF] None Seen [facility] Urine specific gravity measu rementOrdered By: Ramesh Coffey on 10-26-2024 Specific gravity (U) [Rel density] 1.010 1.002-1.030 [facility] Urine urobilinogen measureme ntOrdered By: Ramesh Coffey on 10-26-2024 Urobilinogen Ql (U) Normal mg/dl Normal [facility] White blood cell (WBC) count Ordered By: Ramesh Coffey on 10-26-2024 WBC (Bld) [#/Vol] 7.7 10*3/uL 4.4-11.0 [facility] White blood cell countOrdere d By: Ramesh Coffey on 10-26-2024 White blood cell count 0-5 SEEN /hpf 0-5 [facility] Absolute lymphocyte countOrd ered By: Elinor Aguilar on 09-06-2024 Lymphocytes Auto (Unsp spec) [#/Vol] 2.17 10*3/uL 0.83-4.51 [facility] Absolute neutrophil countOrd ered By: Elinor Aguilar on 09-06-2024 Neutrophils (Bld) [#/Vol] 4.7 10*3/uL 2.0-7.7 [facility] Anion gap in Serum or Plasma Ordered By: Elinor Aguilar on 09-06-2024 Anion gap [Moles/Vol] 10 mmol/L 5-15 [facility] Automated lymphocyte count a s percentage of total leukocytesOrdered By: Elinor Aguilar on 09-06-2024 Lymphocytes/100 WBC Auto (Unsp spec) 28.3 % 19- [facility] BUN/creatinine ratioOrdered By: Elinor Aguilar on 09-06-2024 Urea nitrogen/Creatinine [Mass ratio] 12.4 mg/mg 10-20 [facility] Basophil percentageOrdered B y: Elinor Aguilar on 09-06-2024 Basophils/100 WBC (Bld) 0.8 % 0-1 [facility] Bilirubin, totalOrdered By: Elinor Aguilar on 09-06-2024 Bilirubin [Mass/Vol] 0.27 mg/dL 0.00-1.30 [facility] CBC W/Diff, Automatedon Absolute Lymph 2.17 X10 3/uL Normal 0.83-4.51 [facility] Comment on above: Performed By: #### L [id number], L100.0100 #### [facility] [address] [place], [address] Absolute Neut 4.7 X10 3/uL Normal 2.0-7.7 [facility] Comment on above: Performed By: #### L [id number], L100.0100 #### [facility] [address] [place], [address] Basophils/100 WBC (Bld) 0.8 % Normal 0-1 [facility] Comment on above: Performed By: #### L [id number], L100.0100 #### [facility] [address] [place], [address] Eosinophils/100 WBC (Bld) 0.8 % Normal 0-5 [facility] Comment on above: Performed By: #### L [id number], L100.0100 #### [facility] [address] [place], [address] Erythrocyte distribution width (RBC) [Ratio] 12.6 % Normal 11.6-14.6 [facility] Comment on above: Performed By: #### L [id number], L100.0100 #### [facility] [address] [place], [address] Hematocrit (Bld) [Volume fraction] 38.1 % Normal 37-47 [facility] Comment on above: Performed By: #### L [id number], L100.0100 #### [facility] [address] [place], [address] Hemoglobin (Bld) [Mass/Vol] 12.6 g/dL Normal 12.0-15.0 [facility] Comment on above: Performed By: #### L [id number], L100.0100 #### [facility] [address] [place], [address] IG% 0.400 Normal 0.0-0.9 [facility] Comment on above: Result Comment: IG% - Immature Granulocytes (promyelocytes, myelocytes and metamyelocytes) > 1% indicates that a LEFT SHIFT is Present. Performed By: #### L [id number], L100.0100 #### [facility] [address] [place], [address] Lymphocytes/100 WBC (Bld) 28.3 % Normal 19-41 [facility] Comment on above: Performed By: #### L [id number], L100.0100 #### [facility] [address] [place], [address] MCH (RBC) [Entitic mass] 31.3 pg Normal 27.0-32.0 [facility] Comment on above: Performed By: #### L [id number], L100.0100 #### [facility] [address] [place], [address] MCHC (RBC) [Mass/Vol] 33.1 g/dL Normal 32-36 [facility] Comment on above: Performed By: #### L [id number], L100.0100 #### [facility] [address] [place], [address] MCV (RBC) [Entitic vol] 94.5 fL Normal 81-99 [facility] Comment on above: Performed By: #### L [id number], L100.0100 #### [facility] [address] [place], [address] Monocytes/100 WBC (Bld) 8.5 % Normal 0-10 [facility] Comment on above: Performed By: #### L [id number], L100.0100 #### [facility] [address] [place], [address] Neutrophils/100 WBC (Bld) 61.2 % Normal 47-70 [facility] Comment on above: Performed By: #### L [id number], L100.0100 #### [facility] [address] [place], [address] Nucleated RBC (Bld) [#/Vol] 0 10*3/uL Normal 0-5 [facility] Comment on above: Performed By: #### L [id number], L100.0100 #### [facility] [address] [place], [address] Platelet mean volume (Bld) [Entitic vol] 10.2 fL Normal 6.2-12.0 [facility] Comment on above: Performed By: #### L [id number], L100.0100 #### [facility] [address] [place], [address] Platelets (Bld) [#/Vol] 325 10*3/uL Normal 150-450 [facility] Comment on above: Performed By: #### L 500.4050, L100.0100 #### [facility] [address] [place], [address] RBC (Bld) [#/Vol] 4.03 10*6/uL Low 4.2-5.4 [facility] Comment on above: Performed By: #### L [id number], L100.0100 #### [facility] [address] [place], [address] RDW SD 43.8 fl Normal 35.1-43.9 [facility] Comment on above: Performed By: #### L [id number], L100.0100 #### [facility] [address] [place], [address] WBC (Bld) [#/Vol] 7.7 10*3/uL Normal 4.4-11.0 [facility] Comment on above: Performed By: #### L [id number], L100.0100 #### [facility] [address] [place], [address] Carbon dioxide, total [Moles /volume] in Central venous bloodOrdered By: Elinor Aguilar on 09-06-2024 CO2 [Moles/Vol] 26.6 mmol/L 21.0-32.0 [facility] Chloride assayOrdered By: Ayden Aguilar on 09-06-2024 Chloride [Moles/Vol] 104 mmol/L 98-108 [facility] Comprehensive Metabolic Prof ilon 09-06-2024 Albumin [Mass/Vol] 4.6 g/dL Normal 3.5-5.0 [facility] Comment on above: Performed By: #### L 500.4050, L100.0100 #### [facility] [address] [place], [address] Albumin/Globulin [Mass ratio] 2.0 {ratio} Normal 0.9-2.4 [facility] Comment on above: Performed By: #### L 500.4050, L100.0100 #### [facility] [address] [place], [address] ALK PHOS 75 U/L Normal 35-104 [facility] Comment on above: Performed By: #### L 500.4050, L100.0100 #### [facility] [address] [place], [address] ALT [Catalytic activity/Vol] 25 U/L Normal <=34 [facility] Comment on above: Performed By: #### L 500.4050, L100.0100 #### [facility] [address] [place], [address] AST [Catalytic activity/Vol] 18 U/L Normal <=31 [facility] Comment on above: Performed By: #### L 500.4050, L100.0100 #### [facility] [address] [place], [address] Bilirubin [Mass/Vol] 0.27 mg/dL Normal 0.00-1.30 [facility] Comment on above: Performed By: #### L 500.4050, L100.0100 #### [facility] [address] [place], [address] BUN/CRE 12.4 RATIO Normal 10-20 [facility] Comment on above: Performed By: #### L [id number], L100.0100 #### [facility] [address] [place], [address] Calcium [Mass/Vol] 9.9 mg/dL Normal 7.6-11.0 [facility] Comment on above: Performed By: #### L 500.4050, L100.0100 #### [facility] [address] [place], [address] Chloride [Moles/Vol] 104 mmol/L Normal 98-108 [facility] Comment on above: Performed By: #### L 500.4050, L100.0100 #### [facility] [address] [place], [address] CO2 [Moles/Vol] 26.6 mmol/L Normal 21.0-32.0 [facility] Comment on above: Performed By: #### L 500.4050, L100.0100 #### [facility] [address] [place], [address] Creatinine [Mass/Vol] 0.68 mg/dL Low 0.70-1.20 [facility] Comment on above: Performed By: #### L 500.4050, L100.0100 #### [facility] [address] [place], [address] GAP 10 Normal 5-15 [facility] Comment on above: Performed By: #### L 500.4050, L100.0100 #### [facility] [address] [place], [address] GFR/1.73 sq M.predicted among non-blacks MDRD (S/P/Bld) [Vol rate/Area] 106 mL/min/{1.73_m2} Normal >60 [facility] Comment on above: Result Comment: mL/m in/1.73m2 CKD-EPI Creatinine Equation (2020) Performed By: #### L 500.4050, L100.0100 #### [facility] [address] [place], [address] Globulin (S) [Mass/Vol] 2.3 g/dL Normal 2.2-4.2 [facility] Comment on above: Performed By: #### L 500.4050, L100.0100 #### [facility] [address] [place], [address] Glucose [Mass/Vol] 103 mg/dL High 70-99 [facility] Comment on above: Performed By: #### L 500.4050, L100.0100 #### [facility] [address] [place], [address] Potassium [Moles/Vol] 4.4 mmol/L Normal 3.3-5.1 [facility] Comment on above: Performed By: #### L 500.4050, L100.0100 #### [facility] [address] [place], [address] Sodium [Moles/Vol] 141 mmol/L Normal 133-145 [facility] Comment on above: Performed By: #### L 500.4050, L100.0100 #### [facility] [address] [place], [address] T PROT 6.9 g/dL Normal 5.9-8.4 [facility] Comment on above: Performed By: #### L 500.4050, L100.0100 #### [facility] [address] [place], [address] Urea nitrogen [Mass/Vol] 8 mg/dL Normal 4-19 [facility] Comment on above: Performed By: #### L 500.4050, L100.0100 #### [facility] [address] [place], [address] Eosinophil percentageOrdered By: Elinor Aguilar on 09-06-2024 Eosinophils/100 WBC (Bld) 0.8 % 0-5 [facility] Erythrocyte distribution wid th (RBC) [Ratio]Ordered By: Elinor Aguilar on 09-06-2024 Erythrocyte distribution width (RBC) [Entitic vol] 43.8 fL 35.1-43.9 [facility] Erythrocyte distribution wid th ratioOrdered By: Elinor Aguilar on 09-06-2024 Erythrocyte distribution width (RBC) [Ratio] 12.6 % 11.6-14.6 [facility] Erythrocyte distribution wid th standard deviationOrdered By: Elinor Aguilar on 09-06-2024 Erythrocyte distribution width (RBC) [Ratio] 43.8 fl 35.1-43.9 [facility] GFR/1.73 sq M.predicted natan g non-blacks MDRD (S/P/Bld) [Vol rate/Area]Ordered By: Elinor Aguilar on 09-06-2024 Estimated GFR (MDRD) Non-Af Amer 106 >60 [facility] Comment on above: mL/min/1.73m2 CKD-EP I Creatinine Equation (2020) Glomerular filtration rate ( GFR) estimation/1.73 sq m using serum, plasma, or whole bOrdered By: Elinor Aguilar on 09-06-2024 GFR/1.73 sq M.predicted among non-blacks MDRD (S/P/Bld) [Vol rate/Area] 106 mL/min/{1.73_m2} >60 [facility] Comment on above: mL/min/1.73m2 CKD-EP I Creatinine Equation (2020) Hematocrit Auto (Bld) [Volum e fraction]Ordered By: Elinor Aguilar on 09-06-2024 Hematocrit (Bld) [Volume fraction] 38.1 % 37-47 [facility] Hemoglobin measurementOrdere d By: Elinor Aguilar on 09-06-2024 Hemoglobin (Bld) [Mass/Vol] 12.6 g/dL 12.0-15.0 [facility] Immature granulocytes/100 WB C Auto (Bld)Ordered By: Elinor Aguilar on 09-06-2024 Immature granulocytes/100 WBC (Bld) 0.400 % 0.0-0.9 [facility] Comment on above: IG% - Immature Granu locytes (promyelocytes, myelocytes and metamyelocytes) > 1% indicates that a LEFT SHIFT is Present. Laboratory - Chemistry and C hemistry - challengeOrdered By: Elinor Aguilar on 09-06-2024 AST [Catalytic activity/Vol] 18 U/L <32 [facility] Lymphocytes Auto (Unsp spec) [#/Vol]Ordered By: Elinor Aguilar on 09-06-2024 Lymphocytes (Bld) [#/Vol] 2.17 10*3/uL 0.83-4.51 [facility] Lymphocytes/100 WBC Auto (Un sp spec)Ordered By: Elinor Aguilar on 09-06-2024 Lymphocytes/100 WBC (Bld) 28.3 % 19-41 [facility] MCV (mean corpuscular volume ) determinationOrdered By: Elinor Aguilar on 09-06-2024 MCV (RBC) [Entitic vol] 94.5 fL 81-99 [facility] Mean corpuscular hemoglobin (MCH) determinationOrdered By: Elinor Aguilar on 09-06-2024 MCH (RBC) [Entitic mass] 31.3 pg 27.0-32.0 [facility] Mean corpuscular hemoglobin concentration (MCHC) determinationOrdered By: Elinor Aguilar on 09-06-2024 MCHC (RBC) [Mass/Vol] 33.1 g/dL 32-36 [facility] Mean platelet volume determi nationOrdered By: Elinor Aguilar on 09-06-2024 Platelet mean volume (Bld) [Entitic vol] 10.2 fL 6.2-12.0 [facility] Monocyte percentageOrdered B y: Elinor Aguilar on 09-06-2024 Monocytes/100 WBC (Bld) 8.5 % 0-10 [facility] Neutrophil percentageOrdered By: Elinor Aguilar on 09-06-2024 Neutrophils/100 WBC (Bld) 61.2 % 47-70 [facility] Nucleated red blood cell per centageOrdered By: Elinor Aguilar on 09-06-2024 Nucleated RBC/100 WBC (Bld) [Ratio] 0 % 0-5 [facility] Platelet countOrdered By: Ayden Aguilar on 09-06-2024 Platelets (Bld) [#/Vol] 325 10*3/uL 150-450 [facility] Potassium (Unsp spec) [Mass/ Vol]Ordered By: Elinor Aguilar on 09-06-2024 Potassium [Moles/Vol] 4.4 mmol/L 3.3-5.1 [facility] Potassium measurement (mass/ volume)Ordered By: Elinor Aguilar on 09-06-2024 Potassium (Unsp spec) [Mass/Vol] 4.4 mmol/L 3.3-5.1 [facility] RBC Auto (Bld) [#/Vol]Ordere d By: Elinor Aguilar on 09-06-2024 RBC (Bld) [#/Vol] 4.03 10*6/uL Low 4.2-5.4 [facility] Serum creatinine measurement (mass/volume)Ordered By: Elinor Aguilar on 09-06-2024 Creatinine [Mass/Vol] 0.68 mg/dL Low 0.70-1.20 [facility] Serum globulin measurementOr dered By: Elinor Aguilar on 09-06-2024 Globulin (S) [Mass/Vol] 2.3 g/dL 2.2-4.2 [facility] Serum glucose measurement (m ass/volume)Ordered By: Elinor Aguilar on 09-06-2024 Glucose [Mass/Vol] 103 mg/dL High 70-99 [facility] Serum or plasma alanine kirk otransferase (ALT) measurementOrdered By: Elinor Aguilar on 09-06-2024 ALT [Catalytic activity/Vol] 25 U/L <35 [facility] Serum or plasma albumin herberth urement (mass/volume)Ordered By: Elinor Aguilar on 09-06-2024 Albumin [Mass/Vol] 4.6 g/dL 3.5-5.0 [facility] Serum or plasma albumin/glob ulin mass ratioOrdered By: Elinor Aguilar on 09-06-2024 Albumin/Globulin [Mass ratio] 2.0 {ratio} 0.9-2.4 [facility] Serum or plasma alkaline joseph sphatase measurementOrdered By: Elinor Aguilar on 09-06-2024 ALP [Catalytic activity/Vol] 75 U/L 35-104 [facility] Serum or plasma calcium herberth urement (mass/volume)Ordered By: Elinor Aguilar on 09-06-2024 Calcium [Mass/Vol] 9.9 mg/dL 7.6-11.0 [facility] Serum or plasma urea nitroge n measurement (mass/volume)Ordered By: Elinor Aguilar on 09-06-2024 Urea nitrogen [Mass/Vol] 8 mg/dL 4-19 [facility] Sodium levelOrdered By: Renny Aguilar on 09-06-2024 Sodium [Moles/Vol] 141 mmol/L 133-145 [facility] Total proteinOrdered By: Ruby Aguilar on 09-06-2024 Protein [Mass/Vol] 6.9 g/dL 5.9-8.4 [facility] White blood cell (WBC) count Ordered By: Elinor Aguilar on 09-06-2024 WBC (Bld) [#/Vol] 7.7 10*3/uL 4.4-11.0 [facility] CNOVon 11-16-2023 CNOV Office Visit (UCWSTR ) VERONICA UMAÑA ([id number]) 1975 F Date Time Provider Department 11/16/23 9:15 AM LC [facility] During your visit today, we recorded the following information about you: Temperature Pulse Respiration Blood pressure 98.1 degrees 93/minute 18/minute 138/84 Weight 73 kg Lc Marin MD 11/16/2023 10:40 AM Signed Patient presents with: Eye Problem: Right eye swelling and right big toe pain-from pedicure yesterday HPI: Skin Lesion: Location: right great toe medial border Duration: had a hang nail removed at the byproducts extractor yesterday Pruritis/Pain: tender Drainage/blister/pustul e/ulceration: redness, swelling, [...] Eye Problem (more content not included)... Normal [facility] Gram stain for investigation of transfusion reactionOrdered By: Charlette Tran on 10-06-2023 Microscopic observation Gram stain Nom (Unsp spec) [facility] No Panel InformationOrdered By: Charlette Tran on 10-06-2023 Genital Culture Neisseria or beta-hemolytic Streptococcus isolated. [facility] Basophil percentageOrdered B y: Natividad Yee on 03-22-2023 Bilirubin [Mass/Vol] 0.50 mg/dL 0.20-1.00 [facility] Comment on above: For patients on eltr ombopag therapy, use of Dimension [place] TBIL is not recommended. Chloride [Moles/Vol] 104 mmol/L 98-107 [facility] Glucose [Mass/Vol] 94 mg/dL 74-106 [facility] Potassium [Moles/Vol] 3.5 mmol/L 3.5-5.1 [facility] Protein [Mass/Vol] 7.1 g/dL 6.4-8.2 [facility] Sodium [Moles/Vol] 138 mmol/L 136-145 [facility] Laboratory - Chemistry and C hemistry - challengeOrdered By: Natividad [place] on 03-22-2023 ALP [Catalytic activity/Vol] 61 U/L 45-117 [facility] ALT [Catalytic activity/Vol] 21 U/L 13-56 [facility] CO2 [Moles/Vol] 29.0 mmol/L 21.0-32.0 [facility] Globulin (S) [Mass/Vol] 3.5 g/dL 2.2-4.2 [facility] Urea nitrogen/Creatinine [Mass ratio] 22.5 mg/mg 10-20 [facility] No Panel InformationOrdered [facility]: [facility] Estimated GFR (MDRD) Amer 112 mL/min >60 [facility] Comment on above: GFR Calc Estimated GFR (MDRD) Non-Af Amer 93 mL/min >60 [facility] Comment on above: Non- GFR Calc Parathyroid Hormone (Intact) 48.8 pg/mL 18.4-80.1 [facility] Serum or plasma albumin herberth urement (mass/volume)Ordered By: Natividad Yee on 03-22-2023 Albumin [Mass/Vol] 3.6 g/dL 3.2-5.0 [facility] Serum or plasma albumin/glob ulin mass ratioOrdered By: Natividad [place] on 03-22-2023 Albumin/Globulin [Mass ratio] 1.0 {ratio} 0.9-2.4 [facility] Serum or plasma calcium herberth urement (mass/volume)Ordered By: [facility] on 03-22-2023 Calcium [Mass/Vol] 9.3 mg/dL 8.5-10.1 [facility] Serum or plasma creatinine m easurement (mass/volume)Ordered By: [facility] on 03-22-2023 Creatinine [Mass/Vol] 0.71 mg/dL 0.55-1.02 [facility] Comment on above: The validity of the calculated GFR & GFRAA in patients over 70 years has not been determined. Clinical correlation is essential. Serum or plasma urea nitroge n measurement (mass/volume)Ordered By: [facility] on 03-22-2023 Urea nitrogen [Mass/Vol] 16 mg/dL 7-18 [facility] Thin prep Papanicolaou smear with manual screeningOrdered By: [facility] on 03-22-2023 Thin prep Papanicolaou smear with manual screening 9 U/L 15-37 [facility] Thin prep Papanicolaou smear with manual screening 5 5-15 [facility] Laboratory - Drug toxicology Ordered By: Dr. Layne on 08-17-2022 Amphetamines Ql (U) Negative <1000 ng/mL [facility] Benzodiazepines Ql (U) Negative < 200 ng/mL [facility] Cannabinoids Screen Ql (U) Negative < 50 ng/mL [facility] Cocaine Ql (U) Negative < 300 ng/mL [facility] Opiates Ql (U) Negative < 300 ng/mL [facility] No Panel InformationOrdered By: Dr. Layne on 08-17-2022 MDMA (Ecstasy) Screen Negative < 500 ng/mL [facility] Miscellaneous Test See comment [facility] Comment on above: TEST RESULTS LIMITST ramadol Tramadol Positive Tudxrj=296 Tramadol Conf, [place], [place] 2720 ng/mL Sjoral=369 TESTING PERFORMED AT [facility]. ORIGINAL REPORT ON FILE IN LAB CONTAINS ADDITIONAL TEST SITE INFORMATION. Urine Barbiturates Screen Negative < 200 ng/mL [facility] Urine Drug Screen Comment [facility] Comment on above: CONFIRMATORY TESTING FOR ALL [...] TESTING MUST BE ORDERED SEPARATELY. USE TESTMNEMONIC: [facility] Urine Methadone Screen Negative < 300 ng/mL [facility] Urine phencyclidine (PCP) de tectionOrdered By: Dr. Layne on 08-17-2022 Phencyclidine Ql (U) Negative < 25 ng/mL [facility] EMG(NEURO/NI)on 08-05-2022 [facility] Laboratory - Drug toxicology Ordered By: Dr. Layne on 07-20-2022 Amphetamines Ql (U) Negative <1000 ng/mL [facility] Benzodiazepines Ql (U) Negative < 200 ng/mL [facility] Cannabinoids Screen Ql (U) Negative < 50 ng/mL [facility] Cocaine Ql (U) Negative < 300 ng/mL [facility] Opiates Ql (U) Negative < 300 ng/mL [facility] No Panel InformationOrdered By: Dr. Layne on 07-20-2022 MDMA (Ecstasy) Screen Negative < 500 ng/mL [facility] Miscellaneous Test See comment [facility] Comment on above: TEST RESULT LIMITSTr amadol Negative ng/mL Aaltod=200 TESTING PERFORMED AT [facility]. ORIGINAL REPORT ON FILE IN LAB CONTAINS ADDITIONAL TEST SITE INFORMATION. Urine Barbiturates Screen Negative < 200 ng/mL [facility] Urine Drug Screen Comment [facility] Comment on above: CONFIRMATORY TESTING FOR ALL [...] TESTING MUST BE ORDERED SEPARATELY. USE TESTMNEMONIC: [facility] Urine Methadone Screen Negative < 300 ng/mL [facility] Urine phencyclidine (PCP) de tectionOrdered By: Dr. Layne on 07-20-2022 Phencyclidine Ql (U) Negative < 25 ng/mL [facility] Basophil percentageon 2021 Basophil percentage < 0.9 mg/dL 0.55-1.02 [facility] Work Phone: No Panel Informationon 11-09 Bedside Estimated GFR (eGFR) > 60.0000 mL/min >60 [facility] Work Phone: COMPREHENSIVE METABOLIC PANE [place] 10-17-2020 Albumin [Mass/Vol] 4.7 g/dL Normal 3.6-5.1 [facility] Comment on above: Performed By: #### 1 [id number], [id number] #### [facility] [address], [address] [place] [id number] Dimethylaniline Sulfator Operator: Marcelino Matthews MD Albumin/Globulin [Mass ratio] 1.9 {ratio} Normal 1.0-2.5 [facility] Comment on above: Performed By: #### 1 2234, [id number] #### [facility] [address], [address] [place] [address] Dimethylaniline Sulfator Operator: Marcelino Matthews MD ALP [Catalytic activity/Vol] 65 U/L Normal 31-125 [facility] Comment on above: Performed By: #### 1 0231, [id number] #### [facility] [place] [address] Dimethylaniline Sulfator Operator: Marcelino Matthews MD ALT [Catalytic activity/Vol] 13 U/L Normal 6-29 [facility] Comment on above: Performed By: #### 1 0231, [id number] #### [facility] [place] [address] Dimethylaniline Sulfator Operator: Marcelino Matthews MD AST [Catalytic activity/Vol] 15 U/L Normal 10-35 [facility] Comment on above: Performed By: #### 1 0231, [id number] #### [facility] [place] [address] Dimethylaniline Sulfator Operator: Marcelino Matthews MD Bilirubin [Mass/Vol] 0.5 mg/dL Normal 0.2-1.2 [facility] Comment on above: Performed By: #### 1 0231, 18889 #### [facility] [place] [address] Dimethylaniline Sulfator Operator: Marcelino Matthews MD BUN/CREATININE RATIO NOT APPLICABLE Normal 6-22 [facility] Comment on above: Performed By: #### 1 0231, 17714 #### [facility] [place] [address] Dimethylaniline Sulfator Operator: Marcelino Matthews MD Calcium [Mass/Vol] 9.7 mg/dL Normal 8.6-10.2 [facility] Comment on above: Performed By: #### 1 0231, 60650 #### [facility] [place] [address] Dimethylaniline Sulfator Operator: Marcelino Matthews MD Chloride [Moles/Vol] 102 mmol/L Normal 98-110 [facility] Comment on above: Performed By: #### 1 0231, 31550 #### [facility] [place] [address] Dimethylaniline Sulfator Operator: Marcelino Matthews MD CO2 [Moles/Vol] 31 mmol/L Normal 20-32 [facility] Comment on above: Performed By: #### 1 0231, 72123 #### [facility] [place] [address] Dimethylaniline Sulfator Operator: Marcelino Matthews MD Creatinine [Mass/Vol] 0.83 mg/dL Normal 0.50-1.[address] [facility] Comment on above: Performed By: #### 1 0231, 48299 #### [facility] [place] [address] Dimethylaniline Sulfator Operator: Marcelino Matthews MD eGFR NON-AFR. PRYDEINIG 84 mL/min/1.73m2 Normal > OR = 60 [facility] Comment on above: Performed By: #### 1 0231, 87550 #### [facility] [place] [address] Dimethylaniline Sulfator Operator: Marcelino Matthews MD GFR/1.73 sq M.predicted among blacks MDRD (S/P/Bld) [Vol rate/Area] 97 mL/min/{1.73_m2} Normal > OR = 60 [facility] Comment on above: Performed By: #### 1 0231, 49751 #### [facility] [place] [address] Dimethylaniline Sulfator Operator: Marcelino Matthews MD Globulin (S) [Mass/Vol] 2.5 g/dL Normal 1.9-3.7 [facility] Comment on above: Performed By: #### 1 0231, 58711 #### [facility] [place] [address] Dimethylaniline Sulfator Operator: Marcelino Matthews MD Glucose [Mass/Vol] 100 mg/dL High 65-99 [facility] Comment on above: Result Comment: Fasting reference interval For someone without known diabetes, a glucose value between 100 and 125 mg/dL is consistent with prediabetes and should be confirmed with a follow-up test. Performed By: #### 1 0231, 08607 #### [facility] [address], [address] [place] [address] Dimethylaniline Sulfator Operator: Marcelino Matthews MD Potassium [Moles/Vol] 4.2 mmol/L Normal 3.5-5.[address] [facility] [address] [facility] Comment on above: Performed By: #### 1 0231, 17910 #### [facility] [address], [address] [place] [address] Dimethylaniline Sulfator Operator: Marcelino Matthews MD Protein [Mass/Vol] 7.2 g/dL Normal 6.1-8.1 [facility] Comment on above: Performed By: #### 1 0231, 35472 #### [facility] [address], [address] [place] [address] Dimethylaniline Sulfator Operator: Marcelino Matthews MD Sodium [Moles/Vol] 138 mmol/L Normal 135-146 [facility] Comment on above: Performed By: #### 1 0231, 56651 #### [facility] [place] [address] Dimethylaniline Sulfator Operator: Marcelino Matthews MD Urea nitrogen [Mass/Vol] 10 mg/dL Normal 7-25 [facility] Comment on above: Performed By: #### 1 0231, 51894 #### [facility] [place] [address] Dimethylaniline Sulfator Operator: Marcelino Matthews MD SARS COV 2 AB [...] providers and patients using the following websites: https://www.[employer]/home/Covid-19/HCP/antibody/ fact-sheet8 https://www.[employer]/home/Covid-19/Patients/ antibody/fact-sheet8 Healthcare Providers: For additional information please refer to: http://education.[employer]/faq/FBU809 (This link is being provided for informational/ educational purposes only.) This test has been authorized by the FDA under an Emergency Use Authorization (EUA) for use by authorized laboratories. The FDA authorized labeling is available on the [employer] website: www.[employer]/Covid19. Performed By: #### 1 0231, 75489 #### [facility] [address], [address] [place] [id number] Dimethylaniline Sulfator Operator: Marcelino Matthews MD Office Visit: Establish Care on 11-17-2015 Protein mass conc Done [facility] Work Phone: [phone] Tobacco smoking status NHIS Never [facility] Work Phone: [phone] Tobacco smoking status NHIS Never smoker [facility] Work Phone: [phone] Vital Signs Date Time Vital Sign Value Performing Clinician Facility 11-30-2024 09:19-0400 Body height 170.18 cm [facility] Work Phone: [facility] 11-30-2024 09:19-0400 Body mass index (BMI) [Ratio] 26.2 kg/m2 [facility] Work Phone: [facility] 11-30-2024 09:19-0400 Body temperature 97.5 [degF] [facility] Work Phone: [facility] 11-30-2024 09:19-0400 Body weight 75.74 kg [facility] Work Phone: [facility] 11-30-2024 09:19-0400 Diastolic blood pressure 92 mm[Hg] [facility] Work Phone: [facility] 11-30-2024 09:19-0400 Heart rate 77 /min [facility] Work Phone: [facility] 11-30-2024 09:19-0400 Respiratory rate 18 /min [facility] Work Phone: [facility] 11-30-2024 09:19-0400 SaO2% (BldA) [Mass fraction] 98 % [facility] Work Phone: [facility] 11-30-2024 09:19-0400 Systolic blood pressure 142 mm[Hg] [employer] Work Phone: [facility] 11-05-2024 19:36-0400 Body temperature 98 [degF] [facility] Work Phone: [facility] 11-05-2024 19:36-0400 Diastolic blood pressure 90 mm[Hg] Natividad [employer] PA-C Work Phone: [facility] 11-05-2024 19:36-0400 Heart rate 85 /min Natividad [employer] PA-C Work Phone: [facility] 11-05-2024 19:36-0400 Respiratory rate 18 /min Natividad [employer] PA-C Work Phone: [facility] 11-05-2024 19:36-0400 SaO2% (BldA) [Mass fraction] 100 % Natividad [employer] PA-C Work Phone: [facility] 11-05-2024 19:36-0400 Systolic blood pressure 143 mm[Hg] Natividad [employer] PA-C Work Phone: [facility] 11-05-2024 15:29-0400 Body height 170.18 cm [employer] PA-C Work Phone: [facility] 11-05-2024 15:29-0400 Body mass index (BMI) [Ratio] 26.7 kg/m2 Natividad [employer] PA-C Work Phone: [facility] 11-05-2024 15:29-0400 Body weight 77.38 kg [employer] PA-C Work Phone: [facility] 10-31-2024 11:00-0400 Diastolic blood pressure 81 mm[Hg] [employer] PA-C Work Phone: [facility] 10-31-2024 11:00-0400 Heart rate 114 /min Natividad [employer] PA-C Work Phone: [facility] 10-31-2024 11:00-0400 Respiratory rate 20 /min [employer] PA-C Work Phone: [facility] 10-31-2024 11:00-0400 SaO2% (BldA) [Mass fraction] 18 % Natiivdad [employer] PA-C Work Phone: [facility] 10-31-2024 11:00-0400 Systolic blood pressure 157 mm[Hg] Natividad [employer] PA-C Work Phone: [facility] 10-31-2024 07:20-0400 Body height 167.64 cm Natividad [employer] PA-C Work Phone: [facility] 10-31-2024 07:20-0400 Body mass index (BMI) [Ratio] 27.7 kg/m2 Natividad [employer] PA-C Work Phone: [facility] 10-31-2024 07:20-0400 Body temperature 98.4 [degF] Natividad [employer] PA-C Work Phone: [facility] 10-31-2024 07:20-0400 Body weight 77.88 kg [employer] PA-C Work Phone: [facility] 10-26-2024 08:30-0400 Body temperature 98.1 [degF] [employer] PA-C Work Phone: [facility] 10-26-2024 08:30-0400 Diastolic blood pressure 90 mm[Hg] Natividad [employer] PA-C Work Phone: [facility] 10-26-2024 08:30-0400 Heart rate 93 /min Natividad [employer] PA-C Work Phone: [facility] 10-26-2024 08:30-0400 Respiratory rate 18 /min Natividad [employer] PA-C Work Phone: [facility] 10-26-2024 08:30-0400 SaO2% (BldA) [Mass fraction] 100 % Natividad [employer] PA-C Work Phone: [facility] 10-26-2024 08:30-0400 Systolic blood pressure 164 mm[Hg] Natividad [employer] PA-C Work Phone: [facility] 10-26-2024 05:30-0400 Body mass index (BMI) [Ratio] 29 kg/m2 [employer] PA-C Work Phone: [facility] 10-26-2024 05:30-0400 Body weight 81.5 kg [employer] PA-C Work Phone: [facility] 11-16-2023 09:14-0400 Body mass index (BMI) [Ratio] 25.21 kg/m2 Lc Marin MD Work Phone: [facility] 11-16-2023 09:14-0400 Body temperature 98.1 [degF] Lc Marin MD Work Phone: [facility] 11-16-2023 09:14-0400 Body weight 73 kg Lc Marin MD Work Phone: [facility] 11-16-2023 09:14-0400 Diastolic blood pressure 84 mm[Hg] Lc Marin MD Work Phone: [facility] 11-16-2023 09:14-0400 Heart rate 93 /min Lc Marin MD Work Phone: [facility] 11-16-2023 09:14-0400 Respiratory rate 18 /min Lc Marin MD Work Phone: [facility] 11-16-2023 09:14-0400 SaO2% (BldA) [Mass fraction] 98 % Lc Marin MD Work Phone: [facility] 11-16-2023 09:14-0400 Systolic blood pressure 138 mm[Hg] Lc Marin MD Work Phone: [facility] 10-06-2023 11:49-0400 Body height 167.64 cm PA-C [employer] PA Work Phone: [facility] 10-06-2023 11:38-0400 Body mass index (BMI) [Ratio] 26.4 kg/m2 PA-C [employer] PA Work Phone: [facility] 10-06-2023 11:38-0400 Body weight 74.44 kg PA-C Natividad [employer] PA Work Phone: [facility] 10-06-2023 11:38-0400 Diastolic blood pressure 82 mm[Hg] PA-C Natividad [employer] PA Work Phone: [facility] 10-06-2023 11:38-0400 Systolic blood pressure 122 mm[Hg] PA-C Natividad [employer] PA Work Phone: [facility] 08-12-2022 13:49-0500 Diastolic blood pressure 94 mm[Hg] Armando Paredes MD Work Phone: [facility] 08-12-2022 13:49-0500 Systolic blood pressure 140 mm[Hg] Armando Paredes MD Work Phone: [facility] 08-12-2022 13:42-0500 Body height 170.2 cm Armando Paredes MD Work Phone: [facility] 08-12-2022 13:42-0500 Body weight 70.67 kg Armando Paredes MD Work Phone: [facility] 08-12-2022 13:42-0500 Heart rate 74 /min Armando Paredes MD Work Phone: [facility] 08-12-2022 13:42-0500 SaO2% (BldA) [Mass fraction] 97 % Armando Paredes MD Work Phone: [facility] 11-30-2021 09:33-0400 Body temperature 97.81 [degF] Latoya Clement PA-C Work Phone: [facility] 11-30-2021 09:33-0400 Body weight 66.95 kg Latoyaagata Ariasy PA-C Work Phone: [facility] 11-30-2021 09:33-0400 Diastolic blood pressure 68 mm[Hg] Latoya Athy PA-C Work Phone: [facility] 11-30-2021 09:33-0400 Heart rate 80 /min Latoya Hugoy PA-C Work Phone: [facility] 11-30-2021 09:33-0400 Respiratory rate 16 /min Latoyaagata Ariasy PA-C Work Phone: [facility] 11-30-2021 09:33-0400 SaO2% (BldA) [Mass fraction] 96 % Latoyaagata Ariasy PA-C Work Phone: [facility] 11-30-2021 09:33-0400 Systolic blood pressure 120 mm[Hg] Latoya Ariasy PA-C Work Phone: [facility] 11-24-2021 11:00-0400 Body temperature 97.81 [degF] Palak Velazco APRN.[employer]VISOR [employer] Work Phone: [facility] 11-24-2021 11:00-0400 Body weight 68.04 kg Palak Velazco APRN.[employer]PERVISOR [employer] Work Phone: [facility] 11-24-2021 11:00-0400 Diastolic blood pressure 74 mm[Hg] Plaak Velazco APRN.[employer]PER[employer] Work Phone: [facility] 11-24-2021 11:00-0400 Heart rate 104 /min Palak Velazco APRN.[employer] Work Phone: [facility] 11-24-2021 11:00-0400 Respiratory rate 18 /min Palak Velazco APRN.[employer] Work Phone: [facility] 11-24-2021 11:00-0400 SaO2% (BldA) [Mass fraction] 98 % Palak Velazco APRN.[employer] Work Phone: [facility] 11-24-2021 11:00-0400 Systolic blood pressure 126 mm[Hg] Palak Velazco APRN.[employer] Work Phone: [facility] 11-07-2021 17:16-0400 Body height 167.64 cm PA-C [employer] PA Work Phone: [facility] 11-07-2021 17:16-0400 Body mass index (BMI) [Ratio] 23.8 kg/m2 PA-C [employer] PA Work Phone: [facility] Work Phone: 11-07-2021 17:16-0400 Body temperature 97.5 [degF] PA-C Luxr PA Work Phone: [facility] Work Phone: 11-07-2021 17:16-0400 Body weight 67.13 kg PA-C [employer] PA Work Phone: [facility] Work Phone: 11-07-2021 17:16-0400 Diastolic blood pressure 98 mm[Hg] PA-C [employer] PA Work Phone: [facility] Work Phone: 11-07-2021 17:16-0400 Heart rate 86 /min PA-C [employer] PA Work Phone: [facility] Work Phone: 11-07-2021 17:16-0400 Respiratory rate 16 /min PA-C [employer] Work Phone: [facility] Work Phone: 11-07-2021 17:16-0400 SaO2% (BldA) [Mass fraction] 99 % PA-C [employer] Work Phone: [facility] Work Phone: 11-07-2021 17:16-0400 Systolic blood pressure 166 mm[Hg] PA-C [employer] Work Phone: [facility] Work Phone: 08-24-2021 12:29-0400 Body height 167.64 cm PA-C [employer] Work Phone: [facility] Work Phone: 08-24-2021 12:29-0400 Body mass index (BMI) [Ratio] 24.3 kg/m2 PA-C Natividad [employer] PA Work Phone: [facility] Work Phone: 08-24-2021 12:29-0400 Body temperature 97.2 [degF] PA-C Natividad [employer] PA Work Phone: [facility] Work Phone: 08-24-2021 12:29-0400 Body weight 68.49 kg PA-C Natividad [employer] PA Work Phone: [facility] Work Phone: 08-24-2021 12:29-0400 Diastolic blood pressure 96 mm[Hg] PA-C Natividad [employer] PA Work Phone: [facility] Work Phone: 08-24-2021 12:29-0400 Heart rate 93 /min PA-C Natividad [employer] PA Work Phone: [facility] Work Phone: 08-24-2021 12:29-0400 Respiratory rate 16 /min PA-C Natividad [place] PA Work Phone: [facility] Work Phone: 08-24-2021 12:29-0400 SaO2% (BldA) [Mass fraction] 98 % PA-C Natividad [employer] PA Work Phone: [facility] Work Phone: 08-24-2021 12:29-0400 Systolic blood pressure 134 mm[Hg] PA-C Natividad [place] PA Work Phone: [facility] Work Phone: 11-17-2015 12:50-0400 BMI (Body Mass Index) 25.53 kg/m2 Brook Vasquez RN [facility] Work Phone: 11-17-2015 12:50-0400 Body [...] Date Encounter Type Care Provider Facility Start: 12-05-2024 ambulatory [facility] Facility: [facility] Start: 12-03-2024 ambulatory [facility] Facility: [facility] Start: 11-30-2024 End: 11-30-[address] Anay Lugo MD -[facility] Work Phone: Start: 11-30-2024 End: 11-30-2024 ambulatory Natividad COMBS-C Work Phone: [facility] Work Phone: Start: 11-27-2024 Non-patient / Non-visit Dr. Nicole COLLINS -[facility] Start: 11-27-2024 End: 11-27-2024 ambulatory Natividad Yee PA-C Work Phone: -Cardiovascular Services Start: 11-27-2024 End: 11-27-[address] Kala Solares MD -[facility] Work Phone: Start: 11-26-2024 End: 11-27-2024 ambulatory Natividad Yee PA-C Work Phone: -Outpatient Breast Imaging Start: 11-26-2024 End: 11-26-[address] Kala Solares MD -[facility] Work Phone: Start: 11-26-2024 End: 11-26-2024 ambulatory Kala Solares Facility:[facility] Start: 11-05-2024 End: 11-05-2024 Emergency department patient visit Natividad Yee PA-C Work Phone: -Emergency Department Work Phone: Start: 10-31-2024 End: 10-31-2024 Emergency department patient visit Natividad Yee PA-C Work Phone: -Emergency Department Work Phone: Start: 10-26-2024 End: 10-26-2024 Emergency department patient visit Natividad Yee PA-C Work Phone: -Emergency Department Work Phone: Start: 09-06-2024 End: 09-06-2024 ambulatory Natividad Yee PA-C Work Phone: [facility] Work Phone: Start: 09-06-2024 End: 09-06-2024 Patient encounter procedure Elinor Aguilar NP-C -Laboratory, Specimen Work Phone: Start: 09-06-2024 End: 09-06-2024 ambulatory Elinor Aguilar NP Facility:[facility] Start: 03-15-2024 ambulatory [facility] Start: 11-16-2023 End: 11-16-2023 ambulatory NATIVIDAD YEE Facility:[facility] Start: 11-16-2023 End: 11-16-2023 Patient encounter procedure Lc Marin MD Work Phone: [facility] Comment on above: Paronychia of great toe of right foot (Primary Dx); Pediculosis capitis Start: 10-06-2023 End: 10-06-2023 ambulatory JANNETH COMBS Work Phone: [facility] Work Phone: Start: 10-06-2023 End: 10-06-2023 Patient encounter procedure JANNETH COMBS Work Phone: [facility]Laboratory, Specimen Work Phone: Start: 10-06-2023 End: 10-06-2023 Patient encounter procedure JANNETH COMBS Work Phone: [facility] Work Phone: Start: 03-22-2023 End: 03-22-2023 ambulatory [facility] Work Phone: Start: 03-22-2023 End: 03-22-2023 Patient encounter procedure [facility], [place] Work Phone: Start: 11-18-2022 End: 11-18-2022 ambulatory [facility] Work Phone: Start: 11-18-2022 End: 11-18-2022 Discharged Recurring [facility]Physical Therapy Work Phone: Start: 09-30-2022 Registered Recurring JANNETH COMBS Work Phone: [facility] Start: 09-27-2022 End: 09-27-2022 ambulatory JANNETH COMBS Work Phone: [facility] Work Phone: Start: 09-27-2022 End: 09-27-2022 Patient encounter procedure PA-Zeke Yee PA Work Phone: [facility]-Outpatient Breast Imaging Start: 08-19-2022 Registered Recurring JANNETH COMBS Work Phone: [facility] Therapy Start: 08-17-2022 End: 08-17-2022 ambulatory PA-Zeke Yee PA Work Phone: [facility] Work Phone: Start: 08-17-2022 End: 08-17-2022 Patient encounter procedure GARRET-Zeke Yee PA Work Phone: [facility]Laboratory Start: 08-13-2022 ambulatory Armando pham MD Work Phone: Neurology Comment on above: pain psychology Start: 08-13-2022 E-mail encounter fro m caregiver Armando Paredes MD Work Phone: [facility] Start: 08-12-2022 End: 08-12-2022 Patient encounter procedure Armando Paredes MD Work Phone: Neurology Comment on above: 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 (Primary Dx) Start: 08-06-2022 Telephone encounter Lori elkins DO Work Phone: Neurology Comment on above: Faxed EMG Results Start: 08-05-2022 End: 08-05-2022 ambulatory Emg 300) Work Phone: Neurology Comment on above: EMG Start: 08-05-2022 End: 08-05-2022 Patient encounter procedure Emg 1 Neur Stro (Max Weight: 300) Work Phone: [facility] Start: 08-05-2022 Telephone encounter Armando Paredes MD Work Phone: Neurology Comment on above: Forms ([employer] ) Start: 07-26-2022 Registered Recurring JANNETH COMBS Work Phone: [facility] Therapy Start: 07-20-2022 End: 07-20-2022 Orders Only Priscila Umaña Work Phone: Neurology Comment on above: Chronic left-sided l umbar radiculopathy (Primary Dx) Start: 07-20-2022 End: 07-20-2022 Patient encounter procedure PA-Zeke Yee PA Work Phone: [facility] Start: 06-21-2022 Non-patient / Non-visit PA-C Dariela Yee PA Work Phone: [facility] Start: 06-21-2022 End: 06-21-2022 ambulatory PA-C Natividad Yee PA Work Phone: [facility] Work Phone: Start: 06-21-2022 End: 06-21-2022 Patient encounter procedure PA-C Natividad Yee PA Work Phone: [facility]Cardiovascular Services Start: 11-30-2021 Telephone encounter Latoya Salvatore Ath y PA-C Work Phone: [facility] Comment on above: Prescription Request to Different Pharmacy Start: 11-30-2021 End: 11-30-2021 Patient encounter procedure Latoya Salvatore Clement PA-C Work Phone: [facility] Comment on above: Hordeolum externum o f right upper eyelid (Primary Dx) Start: 11-24-2021 Telephone encounter No Pcp [facility] Comment on above: Results Start: 11-24-2021 End: 11-24-2021 Patient encounter procedure Palak Velazco APRN.[employer]OR [employer]ES Work Phone: [facility] Comment on above: Close exposure to [place] VID-19 virus (Primary Dx) Start: 11-09-2021 End: 11-09-2021 Patient encounter procedure PA-C Natividad Yee PA Work Phone: [facility] Start: 11-07-2021 End: 11-07-2021 Emergency department patient visit PA-C Natividad Yee PA Work Phone: [facility]Emergency Department Start: 08-24-2021 Non-patient / Non-visit PA-C K yariel Yee PA Work Phone: [facility] Start: 08-24-2021 End: 08-24-2021 Emergency department patient visit PA-C Natividad Yee PA Work Phone: [facility]Emer[facility] Department Procedures Date Procedure Procedure Detail Performing Clinician Start: 11-27-2024 CT [facility] Work Phone: Start: 11-26-2024 Bilateral mammography K yariel [place] PA-C Work Phone: Start: 11-26-2024 Ultrasonography of breast [facility] Work Phone: Start: 11-05-2024 X-ray of chest, PA a nd lateral views [facility] PA-C Work Phone: Start: 11-05-2024 D-dimer assay, quantitative [facility] Work Phone: Comment on above: NORMAL D-Dimer level (<0.50) indicates no DVT or PE. Start: 11-05-2024 Estimated creatinine clearance [facility] PA-C Work Phone: Start: 10-31-2024 Methadone measuremen t, urine [facility] Work Phone: Start: 10-31-2024 Estimated creatinine clearance [facility] PA-C Work Phone: Start: 10-26-2024 Urnls dip stick/tabl et reagent auto microscopy [facility] PA-C Work Phone: Start: 10-26-2024 Estimated creatinine clearance [facility] PA-C Work Phone: Start: 10-06-2023 Genital Culture JANNETH COMBS Work Phone: Start: 10-06-2023 Investigation of transfusion reaction JANNETH COMBS Work Phone: Start: 09-27-2022 Screening mammography P A-C Natividad COMBS Work Phone: Start: 08-05-2022 Nerve conduction talia dies 5-6 studies Ayah Whiting MD Work Phone: Start: 11-09-2021 CT of abdominal aort a with contrast JANNETH COMBS Work Phone: Start: 11-17-2015 Screening mammography Screening mamm ogram rBook Vasquez RN Start: 11-17-2015 Thyroid disorder screening Scr eening for thyroid disorder Brook Vasquez RN Start: 04-19-2007 Colonoscopy Palak Velazco APRN.[employer]OR [employer]ES Work Phone: Plan of Treatment Date Care Activity Detail Author Start: 11-05-2024 [facility] Start: 11-05-2024 [facility] Start: 10-31-2024 [facility] Start: 10-26-2024 [facility] Start: 10-26-2024 [facility] Start: 02-05-2024 Influenza vaccination Influenz a Vaccine (Season Ended) [facility] Start: 08-06-2023 [facility]ABET[facility]CREEN [facility] Start: 08-06-2023 Diabetes Screening Diabetes Screenin g [facility] Start: 06-06-2023 Behavioral Health Screening Behavioral Health Screening [facility] Start: 2023 Shingrix Vaccine (1 of 2) Shingrix Vaccine (1 of 2) [facility] Start: 02-04-2023 Covid-19 Vaccine ( season) Covid-19 Vaccine ( season) [facility] Start: 08-17-2022 Procedure [facility] Start: 06-06-2022 DEPRESSION ASSESSMENT DEPRESSION ASS ESSMENT [facility] Start: 02-04-2022 Influenza vaccination C [facility] Start: 11-24-2021 End: 12-08-2021 Influenza virus A and B RNA and SARS-CoV-2 (COVID-19) N gene panel - Respiratory specimen by KEYSHA with probe detection [facility] Work Phone: Comment on above: Expected: 11/24/2021 , Expires: 12/08/2021 Start: 2018 COLOGUARD (FIT-DNA) COLOGUARD (FIT-D NA) [facility] Start: 2018 Colonoscopy COLONOSCOPY [facility] Start: 2018 COLORECTAL CANCER SCREENING COLORECTAL CANCER SCREENING [facility] Start: [address] COLONOGRAPHY [facility] Start: 2018 FECAL OCCULT BLOOD FECAL OCCULT BLOO D [facility] Start: 2018 Lipid panel Lipid Screening [facility] Start: 2018 LIPID SCREEN LIPID SCREEN [facility] Start: 2018 Screening for malign ant neoplasm of colon [facility] Start: 2018 SIGMOIDOSCOPY SIGMOIDOSCOPY [facility] Start: 02-10-2017 End: 02-10-2017 Xtrnl mobile cv telemetry w/i&report 30 days 30 Day Holter Monitor [employer] Work Phone: Start: 11-17-2015 End: 11-17-2015 *CMP Complete Metabolic Panel *CMP Complete Metabolic Panel [employer] Work Phone: Start: 11-17-2015 End: 11-17-2015 Hemoglobin A1c/Hemoglobin.total mass fraction (Bld) *HgA1C [employer] Work Phone: Start: 11-17-2015 End: 11-17-2015 Lipid 1996 panel *Lipid Profile [facility] Work Phone: Start: 11-17-2015 End: 11-17-2015 Mammogram, screening Mammogram, Screening, both breasts [employer] Work Phone: Start: 11-17-2015 End: 11-17-2015 T3 free mass conc *T3-Free [employer] Work Phone: Start: 11-17-2015 End: 11-17-2015 T4 free mass conc *T4 free [employer] Work Phone: Start: 11-17-2015 End: 11-17-2015 Thyroglobulin mass conc *ATAB - Thyroglobulin Antibody [facility] Work Phone: Start: 11-17-2015 End: 11-17-2015 Thyrotropin Qn *TSH [facility] Work Phone: Start: 2013 Mammography MAMMOGRAM [facility] Start: 2013 Screening for malign ant neoplasm of breast Mammogram Screening [facility] Start: 2003 HPV TESTING HPV TESTING [facility] Start: 1994 PAP TESTING PAP TESTING [facility] Start: 1994 Screening for malign ant neoplasm of cervix Cervical Cancer Screening [facility] Start: 1992 Hepatitis B Vaccine (1 of 3 - 19+ 3-dose series) Hepatitis B Vaccine (1 of 3 - 19+ 3-dose series) [facility] Start: 1992 Urine microalbumin profile [facility] Start: 1991 HEPATITIS C SCREENING HEPATITIS C [facility] Start: 1991 Hepatitis C screening Hepatitis C [facility] Start: 1991 HIV SCREENING HIV SCREENING [facility] Start: 1991 HIV screening HIV Screening [facility] Start: 1985 Adult depression screening assessment DEPRESSION SCREENING [facility] Start: 1978 COVID-19 VACCINE (#1) COVID-19 VACCI NE (#1) [facility] Start: 1973 COVID-19 VACCINE (#1) COVID-19 VACCI NE (#1) [facility] Start: 1973 HEPATITIS B (1 of 3 - 3-dose series) HEPATITIS B (1 of 3 - 3-dose series) [facility] End: 07-20-2023 EMG(NEURO/NI) EMG(NEURO/NI) EMG Routine Chronic left-sided lumbar radiculopathy 1 Occurrences starting 07/20/2022 until 07/20/2023 [facility] Work Phone: Comment on above: 1 Occurrences starti ng 07/20/2022 until 07/20/2023 Patient Education [facility] Work Phone: Patient referral [facility] Work Phone: [facility] Payers Date Payer Category Payer Unknown [id number] 2024 Unknown [id number] 2024 Self-pay [id number] 2022 Unknown [id number] 2021 Unknown [id number] 2019 Unknown [employer] PPO [id number] 2019-Present [phone] [address] [place] [address] PPO [id number] 2019 Unknown [id number] 1975 Unknown [id number] Unknown [id number] Unknown [id number] Unknown [id number] Unknown [id number] Unknown [id number] Unknown [id number] Unknown [id number] Unknown [id number] Unknown [id number] Unknown [id number] Unknown [id number] Social History Date Type Detail Facility [facility] Work Phone: Start: 08-24-2021 End: 11-07-2021 Tobacco smoking status NYIS Unknown if ever smoked [facility] Start: 11-27-2019 Non-smoker [facility] Start: 1975 Sex Assigned At Female [facility] Start: 11-12-2016 End: 11-30-2024 Tobacco smoking status NHIS Never smoked tobacco [facility] Work Phone: History of tobacco use Cigarette Smoker [facility] Work Phone: Start: 11-12-2016 End: 11-16-2023 Tobacco use and exposure Smokeless tobacco non-user [facility] Work Phone: Start: 11-24-2021 End: 11-16-2023 Alcohol intake Current non-drinker of alcohol (finding) [facility] Start: 11-14-2021 End: 11-24-2021 Exposure to SARS-CoV-2 (event) Yes [facility] Work Phone: Start: 11-20-2021 End: 11-30-2021 Exposure to SARS-CoV-2 (event) Not sure [facility] Work Phone: Start: 08-12-2022 End: 11-16-2023 History of Social function [facility] Start: 08-12-2022 End: 11-16-2023 Tobacco use panel [facility] National Score (1-10 0), lower number is lower risk 71 [facility] Start: 07-22-2020 Gender identity Identifies as female gender (finding) [facility] Start: 07-22-2020 Sexual orientation Heterosexual (fin ding) [facility] Start: 09-11-2024 Sex Female (finding) [facility] Mental Status Date Assessment Result Facility 11-05-2024 Cognitive function Level Of Cons ciousness Awake;Alert;Appropriate;Follow s Commands [facility] Work Phone: 10-31-2024 Cognitive function Level Of Cons ciousness Awake;Alert;Appropriate;Follow s Commands [facility] Work Phone: Clinical Notes 11-24-2021 to 11-27-2024 Lc Marin MD - 11/16/2023 9:40 AM EDT Note Date & Type Note Facility 11-27-2024 Radiology Diagnostic study note [facility] [address] [place] [address] Cardiac Only MR#: [id number] Acct: [id number] Name: VERONICA UMAÑA Rep #: [id number] : 1975 F 49 From: Toñito Gonsalez MD PCP: Dr. Kala Solares MD Status: REG CLI Study:Limited Chest CT Cardiac Only Date of E xam: 11/27/24 Exam# [id number] Ordering Dr: Ahsan Solares MD PROCEDURE: LIMITED CHEST CT CARDIAC ONLY 11/27/2024 REASON FOR EXAM: HTN TECHNIQUE: LIMITED CHEST CT CARDIAC ONLY CONTRAST: None One or more dose reduction techniques were used (e.g., Automated exposure control, adjustment of the mA and/or kV according to patient size, use of iterative reconstruction technique). RADIATION DOSE SUMMARY: CTDlvol: 12.19 mGy DLP: 195.04 mGycm COMPARISON: None FINDINGS: Bilateral breast implants. No significant coronary artery calcification is seen. Lungs are clear. CT/Limited Chest CT Cardiac Only IMPRESSION: No significant coronary artery calcification seen. Reading Location: [id number] CC: Dr. Kala Solares MD ~ Crocheter: Signed [facility] 11-26-2024 Radiology Diagnostic study note [facility] [address] [place], [place] [address] Breast Limited Unilateral MR#: [id number] Acct: [id number] Name: VERONICA UMAÑA Rep #: [id number] : 1975 F 49 From: Jose Angel Villalobos DO PCP: Dr. Kala Solares MD Status: REG CLI Study:Breast Limited Unilateral Date of Exam: 11/26/24 Exam# [id number] Ordering Dr: Ahsan Solares MD PROCEDURE: BREAST LIMITED UNILATERAL 11/26/2024 REASON FOR EXAM: F, Age 49 y/o , LUMP Left breast palpable abnormality. Inconclusive mammogram shows masses in the breast. Evaluate. Patient has a left breast implant. COMPARISON: Mammogram dated 11/26/2024 and 09/27/2022. TECHNIQUE: BREAST LIMITED UNILATERAL FINDINGS: Benign-appearing fibrocystic changes are noted throughout the breast. Multiple benign-appearing cystic masses are seen. These are located at the following locations: Marked 12 o'clock, 3 cm from the nipple position measuring 5 x 5 x 4 mm and 2 o'clock, 7 cm from the nipple position measuring 8 x 6 x 3 mm. Benign-appearing complex cystic and solid masses are seen at the following locations: 12 o'clock, 3 cm from the nipple position measuring 9 x 8 x 4 mm and 12 o'clock, 3 cm from nipple position measuring 9 x 9 x 4 mm. There is a solid hypoechoic heterogeneous mass which has irregular margins. This mass is located at 1 o'clock, 6 cm from the nipple position and measures 11 x 10 x 6 mm. It may represent a fibroadenoma however malignancy is another consideration. Biopsy is warranted. There is a solid hypoechoic mass seen at the 2 o'clock, 8 cm from nipple position measuring 12 x 7 x 3 mm. This mass is wider than it is tall and does not produce any posterior shadowing. It appears to represent a fibrocystic mass or fibroadenoma. Short-term six-month follow-up ultrasound is recommended to document stability. There are 2 benign-appearing intramammary lymph nodes seen at 3 o'clock, 11 cm from nipple position measuring 7 x 5 x 3 mm and 3 o'clock, 9 cm from nipple position measuring 6 x 4 x 3 mm. There are benign-appearing axillary lymph nodes seen in the axillary region. These have thin cortexes and do not appear worrisome for malignancy. These benign-appearing axillary lymph nodes measure: 3.2 x 2.2 x 1.5 cm 2.3 x 1.8 x 1.2 cm and 3.7 x 1.6 x 1.1 cm. US/Breast Limited Unilateral IMPRESSION: The solid mass in the left breast at the 1 o'clock position warrants biopsy in order to completely exclude a malignancy. Short-term six-month follow-up ultrasound is recommended to document stability of the remaining masses. BI-RADS 4: SUSPICIOUS ABNORMALITY. RECOMMENDATION: Biopsy Recommended Reading Location: [id number] CC: Dr. Kala Solares MD ~ Crocheter: Signed [facility] 11-05-2024 Radiology Diagnostic study note [facility] [address] [place] [address] [id number] Chest PA and Lateral MR#: [id number] Acct: [id number] Name: VERONICA UMAÑA Rep #: [id number] : 1975 F 49 From: Victoria Becker MD PCP: Care Physician,No Primary Status: REG ER Study:Chest PA and Lateral Date of Exam: 11/05/24 Exam# [id number] Ordering Dr: Victor Hugo Mota DO PROCEDURE: CHEST PA AND LATERAL 11/05/2024 REASON FOR EXAM: CHEST PAIN TECHNIQUE: Frontal and lateral views of the chest. COMPARISON: None FINDINGS: Hardware: None Heart: The heart size is normal. Mediastinum: The mediastinal contour is unremarkable. Lungs: The lungs are clear. Bones: The bones are unremarkable. RAD/Chest PA and Lateral IMPRESSION: No acute cardiopulmonary abnormality. Reading Location: [id number] CC: Dr. Victor Hugo Suh DO; No Primary Care Physician ~ Crocheter: Signed [facility] 11-05-2024 Hospital Discharg e instructions Additional Instructions [...] during the afternoon if needed for anxiety. [facility] Work Phone: 10-31-2024 Discharge summary [facility] 11-16-2023 Note HNO ID: [id number] Author: LC MARIN MD Service: ? Author Type: Physician Type: Progress Notes Filed: 11/16/2023 10:40 Note Text: Patient presents with: Eye Problem: Right eye swelling and right big toe pain-from pedicure yesterday HPI: Skin Lesion: Location: right great toe medial border Duration: had a hang nail removed at the byproducts extractor yesterday Pruritis/Pain: tender Drainage/blister/pustule/ulceration: redness, swelling, drainage [...] live lice or nits. Lc Marin MD [facility] 11-16-2023 History of Present illness Narrative Formatting of this note is different fro m the original. Patient presents with: Eye Problem: Right eye swelling and right big toe pain-from pedicure yesterday HPI: Skin Lesion: Location: right great toe medial border Duration: had a hang nail removed at the byproducts extractor yesterday Pruritis/Pain: tender Drainage/blister/pustule/ulceration: redness, swelling, drainage [...] Lc Marin MD documented in this encounter [facility] 02-03-2023 Discharge summary Note Date/Time February 03, 2023 9:43am [facility] Physical [facility] [address] [place] [address] / REHABILITATION SERVICES DISCHARGE SUMMARY MR#: [id number] Acct: [id number] Name: VERONICA UMAÑA Rep #: [id number] : 1975 47 From: Jessie GONCALVES T Referring Dr.: Dr. Meg Sadler MD Status: REG RCR Insurance: [employer] [facility] PACKAGE PLAN Patient Information Patient Information: [...] <Electronically signed by Jessie Li DPT> 02/03/23 0978 CC: JANNETH Yee; Dr. Meg Sadler MD; BRANDY SANTOS ~ ELR Signed [facility] Work Phone: 1(586) 346-787607-05-2023 Discharge summary Author Margaret Oliva [facility] December 08, 2022 11:10am Note Date/Time December 08, 2022 11:11 am [facility] [place] [address] / REHABILITATION SERVICES DISCHARGE SUMMARY MR#: [id number] Acct: [id number] Name: VERONICA UMAÑA Rep #: [id number] : 1975 47 From: Margaret Cornad Referring Dr.: Dr. Meg Sadler MD Status: REG RCR Insurance: [employer] [facility] P[employer] Patient Information Patient Information: [...] found appropriate by the physician. Thank you! MINI Harrington Balance/Gait/Functional tests Balance/Special Test Scores Lower Extremity Functional Score: 45 <Electronically signed by Margaret Oliva MPT> 12/08/22 1110 CC: JANNETH Yee; Dr. Meg Sadler MD; BRANDY SANTOS ~ Signed [facility] Work Phone: 1(224) 454-881003-09-2023 Instructions* Patient Instructions* Armando Paredes MD - 08/12/2022 2:51 PM EST Raul Hanson, healing back pain Use this link to send us a copy of your images from your home computer: [email or web address] To schedule an appointment with me, please call my patient care secretary Lynn at [phone]. [facility] History of Present illness Narrative* Armando Paredes MD - 08/12/2022 2:01 PM EST HPI: This is Ms. Veronica Umaña a 47 year old female from who presents to the [facility] neurology department with a chief complaint of Referring provider: Priscila Umaña, [place] [address] [place] [address] There is a history of Yesica danlos [...] tablet daily 0 GI-Revive 225 gram Powder (Command Information) Take 1 tablespoons twice daily (1 tablespoon [...] Rogers, et al. 2017 Guidelines of the [place] [employer]roid Association for the Diagnosis and Management of Thyroid Disease during and the . Thyroid, 2017:27:3:315-389. Free T4 Date Value Ref Range Status 08/05/2020 1.3 0.9 - 1.7 ng/dL Final Hemoglobin A1C Date Value Ref Range Status 08/05/2020 5.5 4.3 - 5.6 % Final Comment: [place] [employer] Association guidelines indicate that patients with [...] to the appropriate provider. documented in this encounter[facility] Miscellaneous Notes* Telephone Encounter - Lynn Jennifer Emg - 08/06/2022 2:12 PM EST Results from EMG performed on 08/05/22 were faxed to [facility] at fax number [phone] on 08/06/22. Fax confirmation received. documented in this encounter[facility] History of Present illness Narrative* Lori Patel [...] Patiño NCST Lori Patel DO Staff Neurologist [facility] Neurologic [place] documented in this encounterB[facility]23 Miscellaneous Notes* Telephone Encounter - Veronica Zapata LPN - 08/05/2022 1:27 PM EST [employer] sent over a denial of coverage for out of network provider, spoke to patient andshe was made aware and want to keep appointment anyways. Forms sent for scanning in chart. documented in this encounterBrecksville [facility]06-27[facility] Miscellaneous Notes* Telephone Encounter - Latoya Clement PA-C - 11/30/2021 11:52 AM EDT [facility] to [facility]. * Telephone Encounter - Maureen Martinez RN - 11/30/2021 11:23 AM EDT [facility] and is calling to ask if [facility] Racqule in [facility] would send [facility] and [facility]rac[facility]oint[facility] [place]? She states she may have accidentally told Latoya to send it to [facility] but does not use that pharmacy anymore. Thank you. Maureen Martinez RN documented in this encounterBrecksville [facility]06-27-2022 History of Present illness Narrative* Latoya Clement PA-C - 11/30/2021 10:10 AM EDT Images from the original note were not included. This note was created using EndPlay. Subjective Veronica Umaña is a 46 year [...] days. 15 capsule0 GI-Revive 225 gram Powder (Command Information) Take 1 tablespoons twice daily (1 tablespoon [...] D&C (MISSED AB 1ST TRIMESTER) 01/08/14 in [place] PAST SURGICAL HISTORY OF lap left shoulder [...] agreeable. Latoya Clement PA-C documented in this encounterBrecksville [facility]06-22-2022 Miscellaneous Notes* Telephone Encounter - Lauren Aparicio - 11/25/2021 9:47 AM EDT faxed. Lauren Apariico * Telephone Encounter - Elinor Jones LPN - 11/24/2021 11:29 AM EDT Pt reports she was in [facility] this morning to be seen and tested for Covid. Pt is requesting that results be faxed to Dr. Layne when they become available. Elinor Jones LPN documented in this encounterBrecksville [facility]06-21-2022 History of Present illness Narrative* Palak Velazco APRN.MARSHA - 11/24/2021 11:02 AM EDT CC: Patient [...] D&C (MISSED AB 1ST TRIMESTER) 01/08/14 in [place] PAST SURGICAL HISTORY OF lap left shoulder torn labrum repair TONSILLECTOMY PRIMARY/SECONDARY <AGE 10 2004 Tonsillectomy ALLERGIES Cipro [Ciprofloxacin], Cymbalta [Duloxetine], Levoquin [Levofloxacin], Paba [P-Aminobenzoic Acid], Sulfa (Sulfonamide Antibiotics), and Z Pack [Azithromycin] MEDICATIONS Magnesium Citrate 150mg 90 ct[address] (Pure Encapsulations) Take 3 capsules daily. GI-Revive 225 gram Powder (Command Information) Take 1 tablespoons twice daily (1 tablespoon [...] Patient agreeable to treatment plan. 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 Make sure you are taking your antihypertensives especially your metoprolol. Print Language: Micronesian Disposition Disposition: Home, Self Care What to do if you have Problems For any increased pain, shortness of breath, bleeding, nausea or vomiting, chestpain, or any unexpected problems, contact your Primary Care Provider. Call [facility] ([phone]) or report to the closest Emergency Room. Call 911 if necessary. 10/31/24 1200 <Electronically signed by Jose Alexis MD> Cosigner Signature (if applicable): CC: RAYRAY Aguilar ~ Signed [facility] Work Phone: Evaluation noteNo assessment information available [facility] Work Phone: Evaluation note* Diagnosis Close exposure to COVID-19 virus- Primary documented in this encounter [facility]* Diagnosis Hordeolum externum of right upper eyelid- Primary Hordeolum externum [facility]* Diagnosis Chronic left-sided lumbar radiculopathy- Primary documented in this encounter [facility]* Diagnosis Pain in left leg- Primary Chronic left-sided lumbar radiculopathy documented in this encounter [facility]* Diagnosis Chronic left-sided low back pain with left-sided sciatica- Primary documented in this encounter [facility]* Diagnosis Onset Date Resolution Status Inclusion cyst of vulva none active Vaginitis noneactive [facility] Work Phone: Evaluation note* Diagnosis Paronychia of great toe of right foot- Primary Onychia and paronychia of toe Pediculosis capitis Pediculus capitis (head louse) documented [facility] Additional Instructions Follow-up with your primary care provider. Make sure you are taking your antihypertensives especially your metoprolol.[facility] Work Phone: Reason for referral (narrative)* Outpatient Procedure (Routine) - Pending Review Specialty Diagnoses / Procedures Referred By Mariaelena conrad Referred To Contact [facility] Diagnoses Chronic left-sided lumbar radiculopathy Procedures EMG(NEURO/NI) NERVE CONDUCTION STUDIES 9-10 STUDIES Priscila Umaña [address] [place] [address] [facility] [place] [address] [place] [address] Referral ID Status Reason Start Date Expiration Date Visits Requested Visits Authorized [id number] Pending Review Auto-Generat ed Referral 07/20/2022 07/20/2023 1 1 ER [facility] for referral (narrative)No reason for referral information availableWAultman Alliance [facility] Work Phone: Summary Purpose Family History No [...] Yes August 24, 2021 2:50pm Power of Medical Service Technician No August 24 2:50pm Advance Directive Response Recorded Date/ Time Living Will Yes November 07, 2021 5 :40pm Power of Medical Service Technician Yes November 07, 2021 5:40pm Advance Directive Response Recorded Date/ Time Living Will Yes November 07, 2021 4 :40pm Power of Medical Service Technician Yes November 07, 2021 4:40pm Advance Directive Response Recorded Date/ Time Do you have a Healthcare Power of Medical Service Technician? No October 31, 2024 7:27am Do you have a Healthcare Power of Medical Service Technician? No October 26, 2024 5:30am Advance Directive Response Recorded Date/ Time Do you have a Healthcare Power of Medical Service Technician? No October 31, 2024 7:27am Do you have a Healthcare Power of Medical Service Technician? No November 05, 2024 3:35pm Do you have a Healthcare Power of Medical Service Technician? No October 26, 2024 5:30am Chief Complaint [...] CHEST PAIN November 05, 2024 3:28p m Chief Complaint Admit Date allergic reaction October 26, 2024 5:27a m general illness October 31, 2024 7:18a m CHEST PAIN November 05, 2024 3:28p m HX LT LUMPECTOMY, FEELS LUMP ON LT November 26, 2024 1:39pm HYPERTENSION (STAT), CP, HTN November 27, 2024 6:56am BIRADS 4-SELF PAY November 30, 2024 8:46 am Health Concerns Infection Onset Date Last Indicated [...] DATE CREATED AUTHOR AUTHOR'S ORGANIZ ATION 11/17/2023 [facility] DATE CREATED AUTHOR AUTHOR'S ORGANIZ ATION 03/17/2024 [facility] DATE CREATED AUTHOR AUTHOR'S ORGANIZ ATION [facility] Goals (unrecognized section and content) Goals [...] or prosecute any alcohol or drug abuse patient.[facility] HospitalIn the event this information is protected by the Federal Confidentiality of Alcohol and Drug Abuse Patient Records regulations: The Federal rules restrict any use of the information to criminally investigate or prosecute any alcohol or drug abuse patient.[facility] HospitalIn the event this information is protected by the Federal Confidentiality of Alcohol and Drug Abuse Patient Records regulations: The Federal rules restrict any use of the information to criminally investigate or prosecute any alcohol or drug abuse patient.[facility] HospitalIn the event this information is protected by the Federal Confidentiality of Alcohol and Drug Abuse Patient Records regulations: The Federal rules restrict any use of the information to criminally investigate or prosecute any alcohol or drug abuse patient.[facility] HospitalIn the event this information is protected by the Federal Confidentiality of Alcohol and Drug Abuse Patient Records regulations: The Federal rules restrict any use of the information to criminally investigate or prosecute any alcohol or drug abuse patient.[facility] HospitalIn the event this information is protected by the Federal Confidentiality of Alcohol and Drug Abuse Patient Records regulations: The Federal rules restrict any use of the information to criminally investigate or prosecute any alcohol or drug abuse patient.[facility] HospitalIn the event this information is protected by the Federal Confidentiality of Alcohol and Drug Abuse Patient Records regulations: The Federal rules restrict any use of the information to criminally investigate or prosecute any alcohol or drug abuse patient.[facility] HospitalIn the event this information is protected by the Federal Confidentiality of Alcohol and Drug Abuse Patient Records regulations: The Federal rules restrict any use of the information to criminally investigate or prosecute any alcohol or drug abuse patient.[facility] HospitalIn the event this information is protected by the Federal Confidentiality of Alcohol and Drug Abuse Patient Records regulations: The Federal rules restrict any use of the information to criminally investigate or prosecute any alcohol or drug abuse patient.[facility] HospitalIn the event this information is protected by the Federal Confidentiality of Alcohol and Drug Abuse Patient Records regulations: The Federal rules restrict any use of the information to criminally investigate or prosecute any alcohol or drug abuse patient.[facility] HospitalIn the event this information is protected by the Federal Confidentiality of Alcohol and Drug Abuse Patient Records regulations: The Federal rules restrict any use of the information to criminally investigate or prosecute any alcohol or drug abuse patient.[facility] Reason for Visit (unrecogniz ed section and content) Reason Comments Eye Problem right eye swelling a nd pain x last night Specialty Diagnoses / Procedures Referred By Mariaelena t Referred To Contact Family Practice / [facility] Diagnoses sore throat, fever, fatigue, chills and bodyaches Procedures OFFICE/OUTPATIENT ESTABLISHED MOD MDM 30-39 MIN EST SAME DAY Self Palak Velazco APRN.[employer] [address] [place] [address] Referral ID Status Reason Start Date Expiration Date Visits Re quested Visits Authorized [id number] Closed 06/06/2021 06/05/2022 2 2 Reason Comments Cough Pt reported +Covid e xposure family member, SOB, denied chest pain Diarrhea Pt denied blood, muc us Nausea, sore throat pain rated 5 x 4 days Referral ID Status Reason Start Date Expiration Date Visits Re quested Visits Authorized [id number] Closed 06/06/2021 06/05/2022 1 1 Reason Comments Results Reason Comments Prescription Request to Different Pharma cy Reason Comments Forms [employer] Reason Onset Date Comments EMG 08/05/2022 Specialty Diagnoses / Procedures Referred By Mariaelena conrad Referred To Contact Neurology / NEUROMUSCULAR Diagnoses Muscle weakness MUSCLE WEAKNESS Procedures OFFICE/OUTPATIENT NEW MODERATE MDM 45-59 MINUTES NEW NI NEUROMUSC PAIN Priscila Umaña [address] [place] [address] Armando Paredes MD [address] [address] Referral ID Status Reason Start Date Expiration Date V isits Requested Visits Authorized [id number] Authorized 07/22/2022 07/22/2023 20 20 Reason Comments Faxed EMG Results Reason Comments New Patient Weakness Pain, weakness, burn ing, numbness tingling pinpricks constant since 2009, muscle atrophy, progressively worsening Reason Comments Eye Problem Right eye swelling a nd right big toe pain-from pedicure yesterday Care Teams (unrecognized sec tion and content) Director Product Development Relationship Specialty Start Date End Date Natividad Yee PA-C PCP - General Family Practice 10/21/16 NakiaSheelaGARRET Lima-C Referring Family Practice 01/30/20 Director Product Development Relationship Specialty Start Date End Date Natividad YeeGARRET-C PCP - General Family Practice 10/21/16 Nakia Natividad D, PA-C Referring Family Practice 01/30/20 Team Status: Active Member Role Status Mami COMBS PA-C Family Provider Active Natividad COMBS, PA-C Primary Care Provider Active Team Status: Active Member Role Status Mami Natividadellen COMBS, PA-C Primary Care Provider Active Dr. Pedro Eckert MD Attending Provider Active Team Status: Inactive Member Role Status Mami COMBS, PA-C Primary Care Provider Active Dr. Priscila Umaña MD Attending Provider Active Director Product Development Relationship Specialty Start Date End Date Natividad Yee GARRET Ferro-C PCP - General Family Medicine 10/21/16 Natividad Yee PA-C Referring Family Medicine 01/30/20 Team Status: Active Member Role Status Mami COMBS PA-C Primary Care Provider Active Dr. Pedro Eckert MD Attending Provider Active Dr. Priscila Umaña MD Referring Provider Active Team Status: Active Member Role Status Mami Natividadellen COMBS, PA-C Primary Care Provider Active DANIELLE NAVA Attending Provider, Referring Provid er Active Team Status: Inactive Member Role Status Mami COMBS PA-C Primary Care Provider Active Dr. Gloria Layne MD Attending Provider, Referring Pr ovider Active Director Product Development Relationship Specialty Start Date End Date Sheela Yeeyevgeniy Ferro PA-C PCP - General Family Medicine 10/21/16 Natividad Yee PA-C Referring Family Medicine 01/30/20 Director Product Development Relationship Specialty Start Date End Date GainesvilleSheelayevgeniy Ferro PA-C PCP - General Family Medicine 10/21/16 Natividad Yee PA-C Referring Family Medicine 01/30/20 Director Product Development Relationship Specialty Start Date End Date Nakia Natividadellen Ferro PA-C PCP - General Family Medicine 10/21/16 Natividad Yee PA-C Referring Family Medicine 01/30/20 Director Product Development Relationship Specialty Start Date End Date Nakia Natividadellen Ferro PA-C PCP - General Family Medicine 10/21/16 Natividad Yee PA-C Referring Family Medicine 01/30/20 Team Status: Inactive Member Role Status [facility] JANNETH COMBS Primary Care Provider Active Dr. Gloria Layne MD Attending Provider Active Team Status: Inactive Member Role Status [facility] JANNETH COMBS Primary Care Pro vider, Attending Provider, Referring Provider Active Team Status: Inactive Member Role Status [facility] GARRET PAIanC Primary Care Provider Active DANIELLE NAVA Referring Provider Active Dr. Meg Sadler MD Attending Provider Active Team Status: Inactive Member Role Status [facility] GARRET COMBS-C Primary Care Provider, Referri ng Provider Active RAYRAY Fatima Attending Provider Active Team Status: Inactive Member Role Status [facility] GARRET COMBS-C Primary Care Provider Active RAYRAY Fatima Attending Provider, Referring Pr ovider Active Director Product Development Relationship Specialty Start Date End Date Natividad Yee PA-C PCP - General Family Medicine 10/21/16 Natividad Yee PA-C Referring Family Medicine 01/30/20 Team Status: Inactive Member Role Status Dates Natividad COMBS PA-C Primary Care Provider Active Start: September 06, 2024 End: September 06, 2024 Elinor Aguilar NP, RN NICU-C Attending Provider Active Start: September 06, 2024 End: September 06, 2024 Elinor Aguilar NP, RN NICU-C Referring Provider Active Start: September 06, 2024 End: September 06, 2024 Team Status: Active Member Role Status Dates Elinor Aguilar NP, RN NICU-C Primary Care Provider Activ e Team Status: Inactive Member Role Status Dates Dr. Ramesh Coffey DO Emergency Provider Active Start: October 26, 2024 End: October 26, 2024 Elinor Aguilar NP, RN NICU-C Primary Care Provider Activ e Start: October 26, 2024 End: October 26, 2024 Team Status: Inactive Member Role Status Dates Elinor Aguilar NP, RN NICU-C Primary Care Provider Activ e Start: October [...] End: October 26, 2024 Elinor Aguilar NP, RN NICU-C Primary Care Provider Activ e Start: October [...] November 05, 2024 End: November 05, 2024 Team Status: Active Member Role Status Dates Dr. Kala Solares MD Primary Care Provider Active Team Status: Inactive Member Role Status Dates Elinor Aguilar RN NICU, RN NICU-C Primary Care Provider Activ e Start: October 31, 2024 End: October 31, 2024 Jose Alexis MD Attending Provider Active Star t: October 31, 2024 End: October 31, 2024 Jose Alexis MD Emergency Provider Active Star t: October 31, 2024 End: October 31, 2024 Team Status: Inactive Member Role Status Dates Dr. Victor Hugo Suh DO Attending Provider Activ e Start: November 05, 2024 End: November 05, 2024 Dr. Victor Hugo Suh DO Referring Provider Activ e Start: November 05, 2024 End: November 05, 2024 Dr. Victor Hugo Suh DO Emergency Provider Activ e Start: November 05, 2024 End: November 05, 2024 No Primary Care Physician Primary Care Provider Active Start: November 05, 2024 End: November 05, 2024 Team Status: Active Member Role Status Dates Dr. Kala Solares MD Primary Care Provider Active Start: November 26, 2024 Dr. Kala Solares MD Attending Provider Active Start: November 26, 2024 Dr. Kala Solares MD Referring Provider Active Start: November 26, 2024 Team Status: Active Member Role Status Dates Dr. Kala Solares MD Primary Care Provider Active Start: November 27, 2024 Dr. Kala Solares MD Attending Provider Active Start: November 27, 2024 Dr. Kala Solares MD Referring Provider Active Start: November 27, 2024 Team Status: Active Member Role Status Dates Dr. Kala Solares MD Primary Care Provider Active Start: November 27, 2024 Dr. Dillon Florez MD Attending Provider Active S tart: November 27, 2024 Team Status: Inactive Member Role Status Dates Dr. Kala Solares MD Primary Care Provider Active Start: November 30, 2024 End: November 30, 2024 Dr. Kala Solares MD Referring Provider Active Start: November 30, 2024 End: November 30, 2024 Dr. Anay Lugo MD Attending Provider Active Start: November 30, 2024 End: November 30, 2024 Team Status: Active Member Role/Relationship Status Dates Dr. Kala Solares MD Primary Care Provider Active Team Status: Inactive Member Role/Relationship Status Dates Natividad Hills PA, PA-C Primary Care Provider Active Start: September 06, 2024 End: September 06, 2024 Elinor Aguilar RN NICU, RN NICU-C Attending Provider Active Start: September 06, 2024 End: September 06, 2024 Elinor Aguilar RN NICU, RN NICU-C Referring Provider Active Start: September 06, 2024 End: September 06, 2024 Team Status: Inactive Member Role/Relationship Status Dates Dr. Ramesh Coffey DO Attending Provider Active Start: October 26, 2024 End: October 26, 2024 Dr. Ramesh Coffey DO Emergency Provider Active Start: October 26, 2024 End: October 26, 2024 Elinor Aguilar RN NICU, RN NICU-C Primary Care Provider Activ e Start: October 26, 2024 End: October 26, 2024 Team Status: Inactive Member Role/Relationship Status Dates Elinor Aguilar RN NICU, RN NICU-C Primary Care Provider Activ e Start: October 31, 2024 End: October 31, 2024 Jose Alexis MD Attending Provider Active Star t: October 31, 2024 End: October 31, 2024 Jose Alexis MD Emergency Provider Active Star t: October 31, 2024 End: October 31, 2024 Team Status: Inactive Member Role/Relationship Status Dates Dr. Victor Hugo Suh DO Attending Provider Activ e Start: November 05, 2024 End: November 05, 2024 Dr. Victor Hugo Suh DO Referring Provider Activ e Start: November 05, 2024 End: November 05, 2024 Dr. Victor Hugo Suh DO Emergency Provider Activ e Start: November 05, 2024 End: November 05, 2024 No Primary Care Physician Primary Care Provider Active Start: November 05, 2024 End: November 05, 2024 Team Status: Inactive Member Role/Relationship Status Dates Dr. Kala Solares MD Primary Care Provider Active Start: November 26, 2024 End: November 26, 2024 Dr. Kala Solares MD Attending Provider Active Start: November 26, 2024 End: November 26, 2024 Dr. Kala Solares MD Referring Provider Active Start: November 26, 2024 End: November 26, 2024 Team Status: Active Member Role/Relationship Status Dates Dr. Kala Solares MD Primary Care Provider Active Start: November 27, 2024 Dr. Kala Solares MD Attending Provider Active Start: November 27, 2024 Dr. Kala Solares MD Referring Provider Active Start: November 27, 2024 Team Status: Active Member Role/Relationship Status Dates Dr. Kala Solaers MD Primary Care Provider Active Start: November 27, 2024 Dr. Dillon Florez MD Attending Provider Active S tart: November 27, 2024 Team Status: Inactive Member Role/Relationship Status Dates Dr. Kala Solares MD Primary Care Provider Active Start: November 30, 2024 End: November 30, 2024 Dr. Kala Solares MD Referring Provider Active Start: November 30, 2024 End: November 30, 2024 Dr. Anay Lugo MD Attending Provider Active Start: November 30, 2024 End: November 30, 2024 Team Status: Inactive Member Role/Relationship Status Dates Dr. Kala Solares MD Primary Care Provider Active Start: November 27, 2024 End: November 27, 2024 Dr. Kala Solares MD Attending Provider Active Start: November 27, 2024 End: November 27, 2024 Dr. Kala Solares MD Referring Provider Active Start: November 27, 2024 End: November 27, 2024 FOR RECORDS PERTAINING TO PATIENTS WHO [...] BE BASED ON THE PRIMARY CLINICAL RECORDS. [facility]. provides no warranty or guarantee of the accuracy or completeness of information in this document.
--- OUTSIDE RECORDS SUMMARY | 2024-12-04 08:18 | XMS RPT_ITS | CCD ---
Author Organization [facility] CliniSyil Care Team Providers Care Hydrochloric Manufacturing Supervisor Name Role Phone PATRICIA Vasquez, Brook Tristan Unavailable Unavailabl e Nakia PA, PA-C Natividad Primary Care Provider Dr. Pedro Eckert Attending Provider Dr. Kevin Tony Referring Provider Nakia COMBS-CNatividad Primary Care Provider Nakia PA-CSheelaly D Unavailable Nakia COMBS, PA-C Natividad Primary Care Provider Dr. Pedro Eckert Attending Provider Nakia PA-CNatividad Primary Care Provider [phone] Nakia COMBS-CNatividad D Unavailable Dr. Priscila Umaña Referring Provider Unavailable Nakia COMBS, PA-C Natividad Primary Care Provider [phone] Dr. Pedro Eckert Attending Provider Dr. Priscila Umaña Referring Provider Unavailable [place] PA, PA-C Natividad Primary Care Provider Nakia PA, PA-C Natividad Referring Provider [phone] RAYRAY Tran Attending Provider Nakia PA-CNatividad Primary Care Provider NATIVIDAD YEE D Primary Care Unavailable NATIVIDAD YEE Attending Unavailable NATIVIDAD YEE Primary Care Unavailable NATIVIDAD YEE Admitting Unavailable Nakia PA-C, Natividad Primary Care Provider Jeff ESPINOSA-C, Elinor Lyle Attending Provider Unava ilable Jeff ADVERTISING WRITER-C, Elinor Lyle Referring Provider Unava ilable Erlinda DAVID, Dr. Chandler Emergency Provider Jeff ADVERTISING WRITER-C, Elinor Lyle Primary Care Provider Un available Jose Alexis MD Emergency Provider Erlinda DAVID, Dr. Chandler Attending Provider Vikash DAVID, Dr. Gay Referring Provider NissaGilles DAVID, Dr. Gay Emergency Provider Care Physician, No Primary Primary Care Provider Unavailable Jose Alexis MD Attending Provider [facility] hospital[facility] DAVID, Dr. Gay Attending Provider Beck COLLINS, [...] (1 source) Azithromycin Drug Allergy 11-17-19 16 [facility] Work Phone: (1 source) Ciprofloxacin Drug Allergy 11-17-19 16 [facility] Work Phone: (1 source) levoFLOXacin Drug Allergy 11-17-19 16 [facility] Work Phone: (1 source) Sulfacetamide Drug Allergy 11-17-19 16 [facility] Work Phone: (20 sources) Azithromycin; Translations: [AZITHROMYCIN] Drug Allergy 03-02-20 07 Upset Stomach [facility] (20 sources) Quinolones (Antibiotic); Translations: [QUINOLONES] Allergy to substance 08-25-19 22 [facility] Work Phone: (20 sources) Sulfonamides (Antibiotic); Translations: [SULFA (SULFONAMIDE ANTIBIOTICS)] Allergy to substance 03-02-20 07 [facility] (12 sources) 4-Aminobenzoic Acid; Translations: [P-AMINOBENZOIC ACID] Drug Allergy 03-02-20 07 [facility] (15 sources) Ciprofloxacin; Translations: [CIPROFLOXACIN] Drug Allergy 03-02-20 07 [facility] (12 sources) DULoxetine; Translations: [DULOXETINE] Drug Allergy 05-16-20 07 Intolerance [facility] (12 sources) levoFLOXacin; Translations: [LEVOFLOXACIN] Drug Allergy 07-15-19 15 [facility] (3 sources) Botulinum Toxin Type A Drug Allergy 12-01-19 25 [facility] (3 sources) cyclobenzaprine Drug Allergy 12-01-19 25 Other [facility] (3 sources) gabapentin Drug Allergy 12-01-19 25 Other [facility] (3 sources) Ivermectin Drug Allergy 12-01-19 25 Nausea/Vom/Adriane rrhea [facility] (3 sources) Naltrexone Drug Allergy 12-01-19 Other [facility] (3 sources) traMADol Drug Allergy 12-01-19 Other [facility] (1 source) Azithromycin Drug Allergy 12-01-19 [facility] (1 source) Ciprofloxacin Drug Allergy 12-01-19 [facility] (1 source) cyclobenzaprine Drug Allergy 12-01-19 [facility] (1 source) gabapentin Drug Allergy 12-01-19 [facility] (1 source) Ivermectin Drug Allergy 12-01-19 [facility] (1 source) Naltrexone Drug Allergy 12-01-19 [facility] (1 source) traMADol Drug Allergy 12-01-19 [facility] (1 source) prabotulinumtoxinA- xvfs Drug allergy (disorder) 12-01-19 [facility] Medications Current Medications Medication Drug Class(es) [...] Comment on above: Take 1 capsule by [facility] three times daily for 5 days. [...] Take 50 mg by mouth once daily. [place] 6-Jya-Lbq-Fish Oil (Fish Oil) 60-90-500 mg capsule (3 sources) Start: 11-30-2024 [place] 2-Znr-Oeh-Fish Oil (Fish Oil) 60-90-500 mg capsule Active [...] 11-06-19 Baclofen (Bulk) 100 % powder Discontinued DEA November 05, 2024 12:00am November 05, 2024 [...] 11-06-19 Gabapentin (Bulk) 100 % powder Discontinued [facility] November 05, 2024 12:00am November 05, 2024 5:07pm Start: 10-26-2024 End: 11-05-2024 take 100-200 mg by mouth once daily as needed for pain Gabapentin 100 mg capsule Discontinued 100 - 200 mg PO DAILY as needed for pain October 26, 2024 12:00am November 05, 2024 5:07pm GI-Revive 225 gram Powder ([employer]) (11 sources) Start: 07-25-2020 End: 11-16-2023 GI-Revive 225 gram Powder ([employer]) Indications: Other chronic pain , History of thyroid disease , Arthralgia, unspecified joint , Abnormal increased muscle tightness , Mold exposure , Chronic idiopathic constipation , Bloating , Chronic fatigue, unspecified , Diarrhea of presumed infectious origin , Heavy metal exposure Take 1 tablespoons twice daily (1 tablespoon = 1.5 grams L-glut) 0 07/25/2020 11/16/2023 Discontinued Start: 07-25-2020 GI-Revive 225 gram Powder ([employer]) Indications: Other chronic pain , History of [...] daily (1 tablespoon = 1.5 grams L-glut) Uyqsswjl-Anl-Gbrasvpl t-Vit D3 (11 sources) Start: 11-27-2019 End: 05-09-2020 Wrdcofdv-Qgi-Oyfqfjowe-Vi t D3 Discontinued 1 EACH PO DAILY November 27, 2019 1:16pm May 09, 2020 10:22am Start: 11-27-2019 End: 05-09-2020 Kofzlaih-Aof-Uprrnvfgg-Vit D 3 Discontinued 1 EACH PO DAILY November 27, 2019 12:00am May 09, 2020 10:22am Start: 11-27-2019 End: 05-09-2020 Lqsqemcr-Wnf-Iqykmcekn-Vit D 3 Discontinued 1 EACH PO DAILY November 26, 2019 11:00pm May 09, 2020 9:22am Bljsjumo-Gva-Afjndngle-Vit D 3 1 EACH tablet (6 sources) Start: 11-27-2019 End: 05-09-2020 Ipchenym-Ovo-Cpsszamdo-Vit D 3 1 EACH tablet Discontinued 1 [...] 2023 8:43am must administer with a meal/food [place]-3 Fatty Acids (11 sources) Start: 02-28-2019 End: 05-09-2020 take 1000 mg by mouth once daily [place]-3 Fatty Acids Discontinued 1000 MG PO DAILY February 28, 2019 2:36pm May 09, 2020 10:23am Start: 02-28-2019 End: 05-09-2020 take 1000 mg by mouth once daily [place]-3 Fatty Acids Discontinued 1000 MG PO DAILY February 28, 2019 12:00am May 09, 2020 10:23am Start: 02-28-2019 End: 05-09-2020 take 1000 mg by mouth once daily [place]-3 Fatty Acids Discontinued 1000 MG PO DAILY February 27, 2019 11:00pm May 09, 2020 9:23am [place]-3 Fatty Acids 1,000 mg capsule (6 sources) Start: 02-28-2019 End: 05-09-2020 take 1 capsule by mouth once daily [place]-3 Fatty Acids 1,000 mg capsule Discontinued 1000 [...] Comment on above: Take 1 tablet by [facility] three times daily as needed. VIT-FE FUMARATE-FA (1 source) Start: 11-17-2015 take 1 tablet by mouth once daily VITAMIN 27-0.8 MG TABS 1 tablet by mouth daily VIT-FE FUMARATE-FA [id number] Natividad Yee PA-C QUEtiapine 25 mg oral [...] to 1 tablet before bed QUETIAPINE FUMARATE [id number] Natividad Yee PA-C QUEtiapine 50 mg tablet [...] C No.3 (B Complex Plus Vitamin C) 06-26-09-5-300 mg capsule (17 sources) Start: 02-28-2019 End: 05-09-2020 Vitamin B Comp And C No.3 (B Complex Plus Vitamin C) 69-58-25-5-300 mg capsule Discontinued 1 CAP PO DAILY February 28, 2019 2:37pm May 09, 2020 10:23am Start: 02-28-2019 End: 05-09-2020 Vitamin B Comp And C No.3 (B Complex Plus Vitamin C) 28-47-01-5-300 mg capsule Discontinued 1 NMA PO DAILY February 28, 2019 12:00am May 09, 2020 10:23am Start: 02-28-2019 End: 05-09-2020 Vitamin B Comp And C No.3 (B Complex Plus Vitamin C) 45-96-26-5-300 mg capsule Discontinued 1 CAP PO DAILY February 28, 2019 12:00am May 09, 2020 10:23am Start: 02-28-2019 End: 05-09-2020 Vitamin B Comp And C No.3 (B Complex Plus Vitamin C) 10-11-60-5-300 mg capsule Discontinued 1 CAP PO DAILY [...] Surgery Visit Reporton 11-30 Surgery Visit Report [facility] [address] [place] [address] OFFICE VISIT Date of Service: 11/30/24 MR#: [id number] Acct: [id number] Name: VERONICA UMAÑA Rep #: [id number] : 1975 Provider: Dr. 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 Normal [facility] Coronary Angiography CTon Coronary Angiography CT [facility] Imaging Services [address] [place] [address] 11/27/24 1645 MR#: [id number] Acct: [id number] Name: VERONICA UMAÑA Rep #: [id number] : 1975 49 From: Diloln Florez MD PCP: Dr. Kala Solares MD [...] MD; Dr. Kala Solares MD Signed Normal [facility] Echo Completeon 11-27-2024 Echo Complete [facility] [address] [place] [address] Echo Complete 11/27/24 0714 MR#: [id number] Acct: [id number] Name: VERONICA UMAÑA Rep #: [id number] : 1975 49 From: Dillon Florez MD Attending Dr: Dr. Kala Soalres MD Status: REG I Ordering Dr: Kala Solares MD Date: 11/27/24 Location: [facility] Sex: F C Admitted: Reason For Study [...] Date Dictated: 11/27/24713 Date Transcribed: 11/27/24 104 Steam Train Driver: Signed Normal [facility] Echocardiogram study reportO rdered By: Dillon Florez on 11-27-2024 Study report [facility] [address] [place] [address] Echo Complete 11/27/24713 MR#: [id number] Acct: [id number] Name: VERONICA UMAÑA Rep #:[id number] : 1975 49 From: Dillon Ferro Attending Dr: Dr. Kala Solares MD Status: REG CLI Ordering Dr: Kala Solares MD Date: 0 11/27/24 Location: [facility] Sex: F C Admitted: Reason For Study [...] Date Dictated: 11/27/24713 Date Transcribed: 11/27/24 104 Steam Train Driver: Signed [facility] Work Phone: Limited Chest CT Cardiac [facility] 11-27-[address] Cardiac Only [facility] Imaging Services [address] [place], [place] [address] Limited Chest CT Cardiac Only MR#: [id number] Acct: [id number] Name: VERONICA UMAÑA Rep #: [id number] : 1975 F 49 From: Kamlesh chin MD PCP: Dr. Kala Solares MD Status: REG CLI Study: Limited Chest CT Cardiac Only Date of Exam: Exam# [id number] Ordering Dr: Kala Solares MD PROCEDURE: LIMITED [...] significant coronary artery calcification seen. Reading Location: [id number] CC: Dr. Kala Solares MD Steam Train Driver: Signed Normal [facility] Breast Limited Unilateralon 11-26-2024 Breast Limited Unilateral [facility] Imaging Services [address] [place] [address] Breast Limited Unilateral MR#: [id number] Acct: [id number] Name: VERONICA UMAÑA Rep #: [id number] : 1975 F 49 From: Hanna Mann PCP: Dr. Kala Solares MD Status: REG CLI Study: Breast Limited Unilateral Date of Exam: Exam# [id number] Ordering Dr: Kala Solares MD PROCEDURE: BREAST [...] SUSPICIOUS ABNORMALITY. RECOMMENDATION: Biopsy Recommended Reading Location: [id number] CC: Dr. Kala Solares MD Steam Train Driver: Signed Normal [facility] Breast imaging reportOrdered By: Hanna Villalobos on 11-26-2024 Study report [facility] Imaging Services [address] [place], [place] [address] DIAG MAMM W/CAD, BILAT MR#: [id number] Acct: [id number] Name: VERONICA UMAÑA Rep #: [id number] : 1975 F 49 From: Jose Angel Villalobos DO PCP: Dr. Kala Solares MD Status: REG CLI Study:DIAG MAMM W/CAD, BILAT Date of Exam: 11/26/24 Exam# [id number] Ordering Dr: Ahsan Solares MD EXAM: DIAG [...] be mailed to the patient. Reading Location: [id number] CC: Dr. Kala Solares MD ~ Steam Train Driver: Signed [facility] DIAG MAMM W/CAD, BILATon DIAG MAMM W/CAD, BILAT [facility] Imaging Services [address] [place] [address] DIAG MAMM W/CAD, BILAT MR#: [id number] Acct: [id number] Name: VERONICA UMAÑA Rep #: [id number] : 1975 F 49 From: Hanna Ferro O PCP: Dr. Kala Solares MD Status: REG CLI Study: DIAG MAMM W/CAD, BILAT Date of Exam: 11/26/24 Exam# [id number] Ordering Dr: Kala Solares MD EXAM: DIAG [...] be mailed to the patient. Reading Location: [facility] CC: Dr. Kala Solares MD Steam Train Driver: Signed Normal [facility] 12 Lead EKGon 11-05-2024 12 Lead EKG [facility] Cardiovascular Services [address] [place] [address] 12 Lead EKG 11/05/24 1555 MR#: [id number] Acct: [id number] Name: VERONICA UMAÑA Rep #: [id number] : 1975 49 From: Brandy Meza MD [...] : 403 ms Sinus rhythm with short [place] Otherwise normal ECG Confirmed by Brandy Meza ([id number]), staff editor VERONICA ESCOBAR ([id number]) on 11/06/2024 9:56:44 AM Referred By: Victor Hugo Suh Confirmed By: Brandy Meza 11/06/24 0956 Date Brandy Meza MD CC: Dr. Victor Hugo Suh, DO; No Primary Care Physician Signed Normal [facility] Absolute lymphocyte countOrd ered By: Victor Hugo Suh on 11-05-2024 Lymphocytes Auto (Unsp spec) [#/Vol] 1.60 10*3/uL 0.83-4.51 [facility] Absolute neutrophil countOrd ered By: Victor Hugo Suh on 11-05-2024 Neutrophils (Bld) [#/Vol] 4.3 10*3/uL 2.0-7.7 [facility] Anion gap in Serum or Plasma Ordered By: Victor Hugo Suh on 11-05-2024 Anion gap [Moles/Vol] 12 mmol/L 5-15 [facility] Automated lymphocyte count a s percentage of total leukocytesOrdered By: Victor Hugo Suh on 11-05-2024 Lymphocytes/100 WBC Auto (Unsp spec) 24.7 % 19-41 [facility] BUN/creatinine ratioOrdered By: Victor Hugo Suh on 11-05-2024 Urea nitrogen/Creatinine [Mass ratio] 23.7 mg/mg High 10-20 [facility] Basic Metabolic Profile (BMP )on 11-05-2024 BUN/CRE 23.7 RATIO High 10- [facility] Comment on above: Performed By: #### L 501.5200, L501.4021, L500.2500, L100.0100, L501.9520, L300.8000 ####[facility] [address], [address] Calcium [Mass/Vol] 9.7 mg/dL Normal 7.6-11.0 [facility] Comment on above: Performed By: #### L 501.5200, L501.4021, L500.2500, L100.0100, L501.9520, L300.8000 ####[facility] [address] [place], [address] Chloride [Moles/Vol] 103 mmol/L Normal 98-108 [facility] Comment on above: Performed By: #### L 501.5200, L501.4021, L500.2500, L100.0100, L501.9520, L300.8000 ####[facility] [address] [place], [address] CO2 [Moles/Vol] 23.7 mmol/L Normal 21.0-32.0 [facility] Comment on above: Performed By: #### L 501.5200, L501.4021, L500.2500, L100.0100, L501.9520, L300.8000 ####[facility] [address] [place], [address] Creatinine [Mass/Vol] 0.69 mg/dL Low 0.70-1.20 [facility] Comment on above: Performed By: #### L 501.5200, L501.4021, L500.2500, L100.0100, L501.9520, L300.8000 ####[facility] [address] [place], [address] ECRCL 103.41 ml/min Normal 50-250 [facility] Comment on above: Performed By: #### L 501.5200, L501.4021, L500.2500, L100.0100, L501.9520, L300.8000 ####[facility] [address] [place], [address] GAP 12 Normal 5-15 [facility] Comment on above: Performed By: #### L 501.5200, L501.4021, L500.2500, L100.0100, L501.9520, L300.8000 ####[facility] [address] [place], [address] GFR/1.73 sq M.predicted among non-blacks MDRD (S/P/Bld) [Vol rate/Area] 105 mL/min/{1.73_m2} Normal >60 [facility] Comment on above: Result Comment: mL/m in/1.73m2 CKD-EPI Creatinine Equation (2020) Performed By: #### L 501.5200, L501.4021, L500.2500, L100.0100, L501.9520, L300.8000 ####[facility] [address] [place], [address] Glucose [Mass/Vol] 109 mg/dL High 70-99 [facility] Comment on above: Performed By: #### L 501.5200, L501.4021, L500.2500, L100.0100, L501.9520, L300.8000 ####[facility] [address] [place], [address] Potassium [Moles/Vol] 3.9 mmol/L Normal 3.3-5.1 [facility] Comment on above: Performed By: #### L 501.5200, L501.4021, L500.2500, L100.0100, L501.9520, L300.8000 ####[facility] [address] [place], [address] Sodium [Moles/Vol] 139 mmol/L Normal 133-145 [facility] Comment on above: Performed By: #### L 501.5200, L501.4021, L500.2500, L100.0100, L501.9520, L300.8000 ####[facility] [address] [place], [address] Urea nitrogen [Mass/Vol] 16 mg/dL Normal 4-19 [facility] Comment on above: Performed By: #### L 501.5200, L501.4021, L500.2500, L100.0100, L501.9520, L300.8000 ####[facility] [address] [place], [address] Basophil percentageOrdered B y: Victor Hugo Suh on 11-05-2024 Basophils/100 WBC (Bld) 0.8 % 0-1 [facility] CBC W/Diff, Automatedon Absolute Lymph 1.60 X10 3/uL Normal 0.83-4.51 [facility] Comment on above: Performed By: #### L 501.5200, L501.4021, L500.2500, L100.0100, L501.9520, L300.8000 ####[facility] [address] [place], [address] Absolute Neut 4.3 X10 3/uL Normal 2.0-7.7 [facility] Comment on above: Performed By: #### L 501.5200, L501.4021, L500.2500, L100.0100, L501.9520, L300.8000 ####[facility] [address] [place], [address] Basophils/100 WBC (Bld) 0.8 % Normal 0-1 [facility] Comment on above: Performed By: #### L 501.5200, L501.4021, L500.2500, L100.0100, L501.9520, L300.8000 ####[facility] [address] [place], [address] Eosinophils/100 WBC (Bld) 0.5 % Normal 0-5 [facility] Comment on above: Performed By: #### L 501.5200, L501.4021, L500.2500, L100.0100, L501.9520, L300.8000 ####[facility] [address] [place], [address] Erythrocyte distribution width (RBC) [Ratio] 12.5 % Normal 11.6-14.6 [facility] Comment on above: Performed By: #### L 501.5200, L501.4021, L500.2500, L100.0100, L501.9520, L300.8000 ####[facility] [address] [place], [address] Hematocrit (Bld) [Volume fraction] 39.4 % Normal 37-47 [facility] Comment on above: Performed By: #### L 501.5200, L501.4021, L500.2500, L100.0100, L501.9520, L300.8000 ####[facility] [address] [place], [address] Hemoglobin (Bld) [Mass/Vol] 13.4 g/dL Normal 12.0-15.0 [facility] Comment on above: Performed By: #### L 501.5200, L501.4021, L500.2500, L100.0100, L501.9520, L300.8000 ####[facility] [address] [place], [address] IG% 0.500 Normal 0.0-0.9 [facility] Comment on above: Result Comment: IG% - Immature Granulocytes (promyelocytes, myelocytes and metamyelocytes) > 1% indicates that a LEFT SHIFT is Present. Performed By: #### L 501.5200, L501.4021, L500.2500, L100.0100, L501.9520, L300.8000 ####[facility] [address] [place], [address] Lymphocytes/100 WBC (Bld) 24.7 % Normal 19-41 [facility] Comment on above: Performed By: #### L 501.5200, L501.4021, L500.2500, L100.0100, L501.9520, L300.8000 ####[facility] [address] [place], [address] MCH (RBC) [Entitic mass] 31.9 pg Normal 27.0-32.0 [facility] Comment on above: Performed By: #### L 501.5200, L501.4021, L500.2500, L100.0100, L501.9520, L300.8000 ####[facility] [address] [place], [address] MCHC (RBC) [Mass/Vol] 34.0 g/dL Normal 32-36 [facility] Comment on above: Performed By: #### L 501.5200, L501.4021, L500.2500, L100.0100, L501.9520, L300.8000 ####[facility] [address] [place], [address] MCV (RBC) [Entitic vol] 93.8 fL Normal 81-99 [facility] Comment on above: Performed By: #### L 501.5200, L501.4021, L500.2500, L100.0100, L501.9520, L300.8000 ####[facility] [address] [place], [address] Monocytes/100 WBC (Bld) 7.7 % Normal 0-10 [facility] Comment on above: Performed By: #### L 501.5200, L501.4021, L500.2500, L100.0100, L501.9520, L300.8000 ####[facility] [address] [place], [address] Neutrophils/100 WBC (Bld) 65.8 % Normal 47-70 [facility] Comment on above: Performed By: #### L 501.5200, L501.4021, L500.2500, L100.0100, L501.9520, L300.8000 ####[facility] [address] [place], [address] Nucleated RBC (Bld) [#/Vol] 0 10*3/uL Normal 0-5 [facility] Comment on above: Performed By: #### L 501.5200, L501.4021, L500.2500, L100.0100, L501.9520, L300.8000 ####[facility] [address] [place], [address] Platelet mean volume (Bld) [Entitic vol] 9.9 fL Normal 6.2-12.0 [facility] Comment on above: Performed By: #### L 501.5200, L501.4021, L500.2500, L100.0100, L501.9520, L300.8000 ####[facility] [address] [place], [address] Platelets (Bld) [#/Vol] 290 10*3/uL Normal 150-450 [facility] Comment on above: Performed By: #### L 501.5200, L501.4021, L500.2500, L100.0100, L501.9520, L300.8000 ####[facility] [address] [place], [address] RBC (Bld) [#/Vol] 4.20 10*6/uL Normal 4.2-5.4 [facility] Comment on above: Performed By: #### L 501.5200, L501.4021, L500.2500, L100.0100, L501.9520, L300.8000 ####[facility] [address] [place], [address] RDW SD 42.7 fl Normal 35.1-43.9 [facility] Comment on above: Performed By: #### L 501.5200, L501.4021, L500.2500, L100.0100, L501.9520, L300.8000 ####[facility] [address] [place], [address] WBC (Bld) [#/Vol] 6.5 10*3/uL Normal 4.4-11.0 [facility] Comment on above: Performed By: #### L 501.5200, L501.4021, L500.2500, L100.0100, L501.9520, L300.8000 ####[facility] [address] [place], [address] Carbon dioxide, total [Moles /volume] in Central venous bloodOrdered By: Victor Hugo Suh on 11-05-2024 CO2 [Moles/Vol] 23.7 mmol/L 21.0-32.0 [facility] Chest PA and Lateralon 11-05 Chest PA and Lateral [facility] Imaging Services [address] [place] [address] Chest PA and Lateral MR#: [id number] Acct: [id number] Name: VERONICA UMAÑA Rep #: [id number] : 1975 F 49 From: Bhanu Becker MD PCP: Care Physician,No Primary Status: [facility] ER Study: Chest PA and Lateral Date of Exam: 11/05/24 Exam# [id number] Ordering Dr: Victor Hugo Suh DO PROCEDURE: CHEST PA AND LATERAL 11/05/2024 REASON FOR EXAM: CHEST PAIN TECHNIQUE: Frontal and lateral views of the chest. COMPARISON: None FINDINGS: Hardware: None Heart: The heart size is normal. Mediastinum: The mediastinal contour is unremarkable. Lungs: The lungs are clear. Bones: The bones are unremarkable. RAD/Chest PA and Lateral IMPRESSION: No acute cardiopulmonary abnormality. Reading Location: [id number]-[id number]-C CC: Dr. Victor Hugo Suh, ; No Primary Care Physician Steam Train Driver: Signed Normal [facility] Chloride assayOrdered By: Luis Suh on 11-05-2024 Chloride [Moles/Vol] 103 mmol/L 98-108 [facility] D-Dimer Quantitative (DVT/PE )on 11-05-2024 D-DIMER QUANT < 0.27 Low 0.27-0.49 [facility] Comment on above: Result Comment: NORM AL D-Dimer level (<0.50) indicates no DVT or PE. Performed By: #### L 501.5200, L501.4021, L500.2500, L100.0100, L501.9520, L300.8000 ####[facility] [address] 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 Normal [facility] Eosinophil percentageOrdered By: Victor Hugo Suh on 11-05-2024 Eosinophils/100 WBC (Bld) 0.5 % 0-5 [facility] Erythrocyte distribution wid th ratioOrdered By: Victor Hugo Suh on 11-05-2024 Erythrocyte distribution width (RBC) [Ratio] 12.5 % 11.6-14.6 [facility] Erythrocyte distribution wid th standard deviationOrdered By: Victor Hugo Campoverde on 11-05-2024 Erythrocyte distribution width (RBC) [Ratio] 42.7 fl 35.1-43.9 [facility] Glomerular filtration rate ( GFR) estimation/1.73 sq m using serum, plasma, or whole bOrdered By: Victor Hugo Suh on 11-05-2024 GFR/1.73 sq M.predicted among non-blacks MDRD (S/P/Bld) [Vol rate/Area] 105 mL/min/{1.73_m2} >60 [facility] Comment on above: mL/min/1.73m2 CKD-EP I Creatinine Equation (2020) Hematocrit Auto (Bld) [Volum e fraction]Ordered By: Victor Hugo Suh on 11-05-2024 Hematocrit (Bld) [Volume fraction] 39.4 % 37-47 [facility] Hemoglobin measurementOrdere d By: Victor Hugo Suh on 11-05-2024 Hemoglobin (Bld) [Mass/Vol] 13.4 g/dL 12.0-15.0 [facility] Immature granulocytes/100 WB C Auto (Bld)Ordered By: Victor Hugo Suh on 11-05-2024 Immature granulocytes/100 WBC (Bld) 0.500 % 0.0-0.9 [facility] Comment on above: IG% - Immature Granu locytes (promyelocytes, myelocytes and metamyelocytes) > 1% indicates that a LEFT SHIFT is Present. L499.0042on 11-05-2024 Trop T High Sen < 6 Normal <=14 [facility] Comment on above: Performed By: #### L 499.0042 #### [facility] [address] [place], [address] L501.4021on 11-05-2024 Trop T High Sen < 6 Normal <=14 [facility] Comment on above: Performed By: #### L 501.5200, L501.4021, L500.2500, L100.0100, L501.9520, L300.8000 ####[facility] [address] [place], [address] MCV (mean corpuscular volume ) determinationOrdered By: Victor Hugo Suh on 11-05-2024 MCV (RBC) [Entitic vol] 93.8 fL 81-99 [facility] Magnesiumon 11-05-2024 Magnesium [Mass/Vol] 2.3 mg/dL High 1.5-2.2 [facility] Comment on above: Performed By: #### L 501.5200, L501.4021, L500.2500, L100.0100, L501.9520, L300.8000 ####[facility] [address] [place], [address] Magnesium measurement (mass/ volume)Ordered By: Victor Hugo Suh on 11-05-2024 Magnesium (Unsp spec) [Mass/Vol] 2.3 mg/dL High 1.5-2.2 [facility] Mean corpuscular hemoglobin (MCH) determinationOrdered By: Victor Hugo Suh on 11-05-2024 MCH (RBC) [Entitic mass] 31.9 pg 27.0-32.0 [facility] Mean corpuscular hemoglobin concentration (MCHC) determinationOrdered By: Victor Hugo Suh on 11-05-2024 MCHC (RBC) [Mass/Vol] 34.0 g/dL 32-36 [facility] Mean platelet volume determi nationOrdered By: Victor Hugo Suh on 11-05-2024 Platelet mean volume (Bld) [Entitic vol] 9.9 fL 6.2-12.0 [facility] Monocyte percentageOrdered B y: Victor Hugo Suh on 11-05-2024 Monocytes/100 WBC (Bld) 7.7 % 0-10 [facility] Neutrophil percentageOrdered By: Victor Hugo Suh on 11-05-2024 Neutrophils/100 WBC (Bld) 65.8 % 47-70 [facility] Nucleated red blood cell per centageOrdered By: Victor Hugo Suh on 11-05-2024 Nucleated RBC/100 WBC (Bld) [Ratio] 0 % 0-5 [facility] Platelet countOrdered By: Luis Suh on 11-05-2024 Platelets (Bld) [#/Vol] 290 10*3/uL 150-450 [facility] Potassium measurement (mass/ volume)Ordered By: Victor Hugo Suh on 11-05-2024 Potassium (Unsp spec) [Mass/Vol] 3.9 mmol/L 3.3-5.1 [facility] RBC Auto (Bld) [#/Vol]Ordere d By: Victor Hugo Suh on 11-05-2024 RBC (Bld) [#/Vol] 4.20 10*6/uL 4.2-5.4 [facility] Serum creatinine measurement (mass/volume)Ordered By: Victor Hugo Suh on 11-05-2024 Creatinine [Mass/Vol] 0.69 mg/dL Low 0.70-1.20 [facility] Serum glucose measurement (m ass/volume)Ordered By: Victor Hugo Suh on 11-05-2024 Glucose [Mass/Vol] 109 mg/dL High 70-99 [facility] Serum or plasma calcium herberth urement (mass/volume)Ordered By: Victor Hugo Campoverde on 11-05-2024 Calcium [Mass/Vol] 9.7 mg/dL 7.6-11.0 [facility] Serum or plasma urea nitroge n measurement (mass/volume)Ordered By: Victor Hugo Suh on 11-05-2024 Urea nitrogen [Mass/Vol] 16 mg/dL 4-19 [facility] Sodium levelOrdered By: Chad Suh on 11-05-2024 Sodium [Moles/Vol] 139 mmol/L 133-145 [facility] TSH DL <= 0.005 mIU/L QnOrde red By: Victor Hugo Suh on 11-05-2024 TSH Qn 0.524 uIU/mL 0.300-4.200 [facility] Thyroid Stim Hormone (TSH)on 11-05-2024 TSH 0.524 uIU/mL Normal 0.300-4.200 [facility] Comment on above: Performed By: #### L 501.5200, L501.4021, L500.2500, L100.0100, L501.9520, L300.8000 ####[facility] [address] [place], [place], [address] Troponin T.cardiac [Mass/vol ume] in Serum or Plasma by High sensitivity methodOrdered By: Victor Hugo Suh on 11-05-2024 Troponin T.cardiac High sensitivity method [Mass/Vol] < 6 ng/L <14 [facility] Troponin T.cardiac High sensitivity method [Mass/Vol] < 6 ng/L <14 [facility] Comment on above: Delta: 7 on 10/26/24 White blood cell (WBC) count Ordered By: Victor Hugo Suh on 11-05-2024 WBC (Bld) [#/Vol] 6.5 10*3/uL 4.4-11.0 [facility] 12 Lead EKGon 10-31-2024 12 Lead EKG [facility] Cardiovascular Services [address] [place] [address] 12 Lead EKG 10/31/24 0753 MR#: [id number] Acct: [id number] Name: VERONICA UMAÑA Rep #: [id number] : 1975 49 From: Jennyfer Espinoza MD Attending Dr: Status: DEP ER Ordering Dr: Jsoe Alexis MD Date: 10/31/24 Location: ED Sex: [...] Normal ECG Confirmed by JENNYFER ESPINOZA ([id number]), staff editor VERONICA ESCOBAR ([id number]) on 11/05/2024 8:05:56 AM Referred By: Confirmed By: JENNYFER ESPINOZA 11/05/24 0805 Date Jennyfer Espinoza MD CC: RAYRAY Aguilar; Dr. Jose Alexis MD Signed Normal [facility] Absolute lymphocyte countOrd ered By: Jose Alexis on 10-31-2024 Lymphocytes Auto (Unsp spec) [#/Vol] 1.57 10*3/uL 0.83-4.51 [facility] Absolute neutrophil countOrd ered By: Jose Alexis on 10-31-2024 Neutrophils (Bld) [#/Vol] 7.0 10*3/uL 2.0-7.7 [facility] Alcohol, Blood (Medical)-Ser umon 10-31-2024 SERUM ETOH < 10.1 Normal <=10.0 [facility] Comment on above: Result Comment: This test is for medical purposes only. The legal definition of intoxication varies according to local law. Performed By: #### L 501.9100, L700.6800, L505.5000 ####[facility] [address] [place], [address] Amphetamine detection with 1 000 ng/mL as cutoffOrdered By: Jose Alexis on 10-31-2024 Amphetamines Screen method >1000 ng/mL Ql (U) Negative < 200 ng/mL [facility] Anion gap in Serum or Plasma Ordered By: Jose Alexis on 10-31-2024 Anion gap [Moles/Vol] 12 mmol/L 5-15 [facility] Automated lymphocyte count a s percentage of total leukocytesOrdered By: Jose Alexis on 10-31-2024 Lymphocytes/100 WBC Auto (Unsp spec) 16.8 % Low 19- [facility] BUN/creatinine ratioOrdered By: Jose Alexis on 10-31-2024 Urea nitrogen/Creatinine [Mass ratio] 14.4 mg/mg 10-20 [facility] Basophil percentageOrdered B y: Jose Alexis on 10-31-2024 Basophils/100 WBC (Bld) 0.6 % 0-1 [facility] Bilirubin, totalOrdered By: Jose Alexis on 10-31-2024 Bilirubin [Mass/Vol] 0.86 mg/dL 0.00-1.30 [facility] CBC W/Diff, Automatedon 10-05 Absolute Lymph 1.57 X10 3/uL Normal 0.83-4.51 [facility] Comment on above: Performed By: #### L 100.0100, L500.4050 ####[facility] [address] [place], [address] Absolute Neut 7.0 X10 3/uL Normal 2.0-7.7 [facility] Comment on above: Performed By: #### L 100.0100, L500.4050 ####[facility] [address] [place], [address] Basophils/100 WBC (Bld) 0.6 % Normal 0-1 [facility] Comment on above: Performed By: #### L 100.0100, L500.4050 ####[facility] [address] [place], [address] Eosinophils/100 WBC (Bld) 0.1 % Normal 0-5 [facility] Comment on above: Performed By: #### L 100.0100, L500.4050 ####[facility] [address] [place], [address] Erythrocyte distribution width (RBC) [Ratio] 12.6 % Normal 11.6-14.6 [facility] Comment on above: Performed By: #### L 100.0100, L500.4050 ####[facility] [address] [place], [address] Hematocrit (Bld) [Volume fraction] 38.9 % Normal 37-47 [facility] Comment on above: Performed By: #### L 100.0100, L500.4050 ####[facility] [address] [place], [address] Hemoglobin (Bld) [Mass/Vol] 13.5 g/dL Normal 12.0-15.0 [facility] Comment on above: Performed By: #### L 100.0100, L500.4050 ####[facility] [address] [place], [address] IG% 0.500 Normal 0.0-0.9 [facility] Comment on above: Result Comment: IG% - Immature Granulocytes (promyelocytes, myelocytes and metamyelocytes) > 1% indicates that a LEFT SHIFT is Present. Performed By: #### L 100.0100, L500.4050 ####[facility] [address] [place], [address] Lymphocytes/100 WBC (Bld) 16.8 % Low 19-41 [facility] Comment on above: Performed By: #### L 100.0100, L500.4050 ####[facility] [address] [place], [address] MCH (RBC) [Entitic mass] 32.2 pg High 27.0-32.0 [facility] Comment on above: Performed By: #### L 100.0100, L500.4050 ####[facility] [address] [place], [address] MCHC (RBC) [Mass/Vol] 34.7 g/dL Normal 32-36 [facility] Comment on above: Performed By: #### L 100.0100, L500.4050 ####[facility] [address] [place], [address] MCV (RBC) [Entitic vol] 92.8 fL Normal 81-99 [facility] Comment on above: Performed By: #### L 100.0100, L500.4050 ####[facility] [address] [place], [address] Monocytes/100 WBC (Bld) 7.4 % Normal 0-10 [facility] Comment on above: Performed By: #### L 100.0100, L500.4050 ####[facility] [address] [place], [address] Neutrophils/100 WBC (Bld) 74.6 % High 47-70 [facility] Comment on above: Performed By: #### L 100.0100, L500.4050 ####[facility] [address] [place], [address] Nucleated RBC (Bld) [#/Vol] 0 10*3/uL Normal 0-5 [facility] Comment on above: Performed By: #### L 100.0100, L500.4050 ####[facility] [address] [place], [address] Platelet mean volume (Bld) [Entitic vol] 9.9 fL Normal 6.2-12.0 [facility] Comment on above: Performed By: #### L 100.0100, L500.4050 ####[facility] [address] [place], [address] Platelets (Bld) [#/Vol] 314 10*3/uL Normal 150-450 [facility] Comment on above: Performed By: #### L 100.0100, L500.4050 ####[facility] [address] [place], [address] RBC (Bld) [#/Vol] 4.19 10*6/uL Low 4.2-5.4 [facility] Comment on above: Performed By: #### L 100.0100, L500.4050 ####[facility] [address] [place], [address] RDW SD 42.2 fl Normal 35.1-43.9 [facility] Comment on above: Performed By: #### L 100.0100, L500.4050 ####[facility] [address] [place], [address] WBC (Bld) [#/Vol] 9.4 10*3/uL Normal 4.4-11.0 [facility] Comment on above: Performed By: #### L 100.0100, L500.4050 ####[facility] [address] [place], [address] Carbon dioxide, total [Moles /volume] in Central venous bloodOrdered By: Jose Alexis on 10-31-2024 CO2 [Moles/Vol] 23.6 mmol/L 21.0-32.0 [facility] Chloride assayOrdered By: Lex Alexis on 10-31-2024 Chloride [Moles/Vol] 101 mmol/L 98-108 [facility] Comprehensive Metabolic Prof ilon 10-31-2024 Albumin [Mass/Vol] 4.6 g/dL Normal 3.5-5.0 [facility] Comment on above: Performed By: #### L 100.0100, L500.4050 ####[facility] [address] [place], [address] Albumin/Globulin [Mass ratio] 1.8 {ratio} Normal 0.9-2.4 [facility] Comment on above: Performed By: #### L 100.0100, L500.4050 ####[facility] [address] [place], [address] ALK PHOS 65 U/L Normal 35-104 [facility] Comment on above: Performed By: #### L 100.0100, L500.4050 ####[facility] [address] [place], [address] ALT [Catalytic activity/Vol] 33 U/L Normal <=34 [facility] Comment on above: Performed By: #### L 100.0100, L500.4050 ####[facility] [address] [place], [address] AST [Catalytic activity/Vol] 22 U/L Normal <=31 [facility] Comment on above: Performed By: #### L 100.0100, L500.4050 ####[facility] [address] [place], [address] Bilirubin [Mass/Vol] 0.86 mg/dL Normal 0.00-1.30 [facility] Comment on above: Performed By: #### L 100.0100, L500.4050 ####[facility] [address] [place], [address] BUN/CRE 14.4 RATIO Normal 10-20 [facility] Comment on above: Performed By: #### L 100.0100, L500.4050 ####[facility] [address] [place], [address] Calcium [Mass/Vol] 9.7 mg/dL Normal 7.6-11.0 [facility] Comment on above: Performed By: #### L 100.0100, L500.4050 ####[facility] [address] [place], [address] Chloride [Moles/Vol] 101 mmol/L Normal 98-108 [facility] Comment on above: Performed By: #### L 100.0100, L500.4050 ####[facility] [address] [place], [address] CO2 [Moles/Vol] 23.6 mmol/L Normal 21.0-32.0 [facility] Comment on above: Performed By: #### L 100.0100, L500.4050 ####[facility] [address] [place], [address] Creatinine [Mass/Vol] 0.60 mg/dL Low 0.70-1.20 [facility] Comment on above: Performed By: #### L 100.0100, L500.4050 ####[facility] [address] [place], [address] ECRCL 116.86 ml/min Normal 50-250 [facility] Comment on above: Performed By: #### L 100.0100, L500.4050 ####[facility] [address] [place], [address] GAP 12 Normal 5-15 [facility] Comment on above: Performed By: #### L 100.0100, L500.4050 ####[facility] [address] [place], [address] GFR/1.73 sq M.predicted among non-blacks MDRD (S/P/Bld) [Vol rate/Area] 108 mL/min/{1.73_m2} Normal >60 [facility] Comment on above: Result Comment: mL/m in/1.73m2 CKD-EPI Creatinine Equation (2020) Performed By: #### L 100.0100, L500.4050 ####[facility] [address] [place], [address] Globulin (S) [Mass/Vol] 2.5 g/dL Normal 2.2-4.2 [facility] Comment on above: Performed By: #### L 100.0100, L500.4050 ####[facility] [address] [place], [address] Glucose [Mass/Vol] 133 mg/dL High 70-99 [facility] Comment on above: Performed By: #### L 100.0100, L500.4050 ####[facility] [address] [place], [address] Potassium [Moles/Vol] 3.8 mmol/L Normal 3.3-5.1 [facility] Comment on above: Performed By: #### L 100.0100, L500.4050 ####[facility] [address] [place], [address] Sodium [Moles/Vol] 137 mmol/L Normal 133-145 [facility] Comment on above: Performed By: #### L 100.0100, L500.4050 ####[facility] [address] [place], [address] T PROT 7.1 g/dL Normal 5.9-8.4 [facility] Comment on above: Performed By: #### L 100.0100, L500.4050 ####[facility] [address] [place], [address] Urea nitrogen [Mass/Vol] 9 mg/dL Normal 4-19 [facility] Comment on above: Performed By: #### L 100.0100, L500.4050 ####[facility] [address] 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 Normal [facility] Eosinophil percentageOrdered By: Jose Alexis on 10-31-2024 Eosinophils/100 WBC (Bld) 0.1 % 0-5 [facility] Erythrocyte distribution wid th ratioOrdered By: Jose Alexis on 10-31-2024 Erythrocyte distribution width (RBC) [Ratio] 12.6 % 11.6-14.6 [facility] Erythrocyte distribution wid th standard deviationOrdered By: Jose Alexis on 10-31-2024 Erythrocyte distribution width (RBC) [Ratio] 42.2 fl 35.1-43.9 [facility] Glomerular filtration rate ( GFR) estimation/1.73 sq m using serum, plasma, or whole bOrdered By: Jose Alexis on 10-31-2024 GFR/1.73 sq M.predicted among non-blacks MDRD (S/P/Bld) [Vol rate/Area] 108 mL/min/{1.73_m2} >60 [facility] Comment on above: mL/min/1.73m2 CKD-EP I Creatinine Equation (2020) Hematocrit Auto (Bld) [Volum e fraction]Ordered By: Jose Alexis on 10-31-2024 Hematocrit (Bld) [Volume fraction] 38.9 % 37-47 [facility] Hemoglobin measurementOrdere d By: Jose Alexis on 10-31-2024 Hemoglobin (Bld) [Mass/Vol] 13.5 g/dL 12.0-15.0 [facility] Immature granulocytes/100 WB C Auto (Bld)Ordered By: Jose Alexis on 10-31-2024 Immature granulocytes/100 WBC (Bld) 0.500 % 0.0-0.9 [facility] Comment on above: IG% - Immature Granu locytes (promyelocytes, myelocytes and metamyelocytes) > 1% indicates that a LEFT SHIFT is Present. Laboratory - Chemistry and C hemistry - challengeOrdered By: Jose Alexis on 10-31-2024 AST [Catalytic activity/Vol] 22 U/L <32 [facility] MCV (mean corpuscular volume ) determinationOrdered By: Jose Alexis on 10-31-2024 MCV (RBC) [Entitic vol] 92.8 fL 81-99 [facility] Mean corpuscular hemoglobin (MCH) determinationOrdered By: Jose Alexis on 10-31-2024 MCH (RBC) [Entitic mass] 32.2 pg High 27.0-32.0 [facility] Mean corpuscular hemoglobin concentration (MCHC) determinationOrdered By: Jose Alexis on 10-31-2024 MCHC (RBC) [Mass/Vol] 34.7 g/dL 32-36 [facility] Mean platelet volume determi nationOrdered By: Jose Alexis on 10-31-2024 Platelet mean volume (Bld) [Entitic vol] 9.9 fL 6.2-12.0 [facility] Monocyte percentageOrdered B y: Jose Alexis on 10-31-2024 Monocytes/100 WBC (Bld) 7.4 % 0-10 [facility] Neutrophil percentageOrdered By: Jose Alexis on 10-31-2024 Neutrophils/100 WBC (Bld) 74.6 % High 47-70 [facility] No Panel InformationOrdered By: Jose Alexis on 10-31-2024 Urine Buprenorphine Qualitative Negative < 200 ng/mL [facility] Urine Oxycodone Screen Negative < 100 ng/mL [facility] Nucleated red blood cell per centageOrdered By: Jose Alexis on 10-31-2024 Nucleated RBC/100 WBC (Bld) [Ratio] 0 % 0-5 [facility] Platelet countOrdered By: Lex Alexis on 10-31-2024 Platelets (Bld) [#/Vol] 314 10*3/uL 150-450 [facility] Potassium measurement (mass/ volume)Ordered By: Jose Alexis on 10-31-2024 Potassium (Unsp spec) [Mass/Vol] 3.8 mmol/L 3.3-5.1 [facility] ,Serum,hCG Quali.on 10-31-2024 HCG, SERUM QUAL Negative Normal [facility] Comment on above: Performed By: #### L 501.9100, L700.6800, L505.5000 ####[facility] [address] [place], [place], [id number] Quantitative urine opiates m easurementOrdered By: Jose Alexis on 10-31-2024 Opiates Ql (U) Negative < 300 ng/mL [facility] RBC Auto (Bld) [#/Vol]Ordere d By: Jose Alexis on 10-31-2024 RBC (Bld) [#/Vol] 4.19 10*6/uL Low 4.2-5.4 [facility] Screening urine fentanyl kristine surementOrdered By: Jose Alexis on 10-31-2024 fentaNYL Screen Ql (U) Negative [facility] Serum beta-hCG test, qualita tiveOrdered By: Jose Alexis on 10-31-2024 Beta HCG ( test) Ql Negative [facility] Serum creatinine measurement (mass/volume)Ordered By: Jose Alexis on 10-31-2024 Creatinine [Mass/Vol] 0.60 mg/dL Low 0.70-1.20 [facility] Serum globulin measurementOr dered By: Jose Alexis on 10-31-2024 Globulin (S) [Mass/Vol] 2.5 g/dL 2.2-4.2 [facility] Serum glucose measurement (m ass/volume)Ordered By: Jose Alexis on 10-31-2024 Glucose [Mass/Vol] 133 mg/dL High 70-99 [facility] Serum or plasma alanine kirk otransferase (ALT) measurementOrdered By: Jose Alexis on 10-31-2024 ALT [Catalytic activity/Vol] 33 U/L <35 [facility] Serum or plasma albumin herberth urement (mass/volume)Ordered By: Jose Alexis on 10-31-2024 Albumin [Mass/Vol] 4.6 g/dL 3.5-5.0 [facility] Serum or plasma albumin/glob ulin mass ratioOrdered By: Jose Alexis on 10-31-2024 Albumin/Globulin [Mass ratio] 1.8 {ratio} 0.9-2.4 [facility] Serum or plasma alkaline joseph sphatase measurementOrdered By: Jose Alexis on 10-31-2024 ALP [Catalytic activity/Vol] 65 U/L 35-104 [facility] Serum or plasma calcium herberth urement (mass/volume)Ordered By: Jose Alexis on 10-31-2024 Calcium [Mass/Vol] 9.7 mg/dL 7.6-11.0 [facility] Serum or plasma ethanol herberth urement (mass/volume)Ordered By: Jose Alexis on 10-31-2024 Ethanol [Mass/Vol] mg/dL <10.1 [facility] Comment on above: This test is for med ical purposes only. The legal definition of intoxication varies according to local law. Serum or plasma urea nitroge n measurement (mass/volume)Ordered By: Jose Alexis on 10-31-2024 Urea nitrogen [Mass/Vol] 9 mg/dL 4-19 [facility] Sodium levelOrdered By: Jose Aelxis on 10-31-2024 Sodium [Moles/Vol] 137 mmol/L 133-145 [facility] Total proteinOrdered By: Lauren Alexis on 10-31-2024 Protein [Mass/Vol] 7.1 g/dL 5.9-8.4 [facility] Urine Drug Screen (VISTA)on 10-31-2024 AMPHETAMINES Negative Normal <1000 ng/mL [facility] Comment on above: Performed By: #### L 501.9100, L700.6800, L505.5000 ####[facility] [address] [place], [place], [address] BARBITIURATES Negative Normal < 200 ng/mL [facility] Comment on above: Performed By: #### L 501.9100, L700.6800, L505.5000 ####[facility] [address] [place], [address] BENZODIAZIPINE Negative Normal < 200 ng/mL [facility] Comment on above: Performed By: #### L 501.9100, L700.6800, L505.5000 ####[facility] [address] [place], [address] BUP Ur Drug Scr Negative Normal < 200 ng/mL [facility] Comment on above: Performed By: #### L 501.9100, L700.6800, L505.5000 ####[facility] [address] [place], [address] COCAINE Negative Normal < 300 ng/mL [facility] Comment on above: Performed By: #### L 501.9100, L700.6800, L505.5000 ####[facility] [address] [place], [address] Fentanyl Negative Normal [facility] Comment on above: Performed By: #### L 501.9100, L700.6800, L505.5000 ####[facility] [address] [place], [address] METHADONE Negative Normal < 300 ng/mL [facility] Comment on above: Performed By: #### L 501.9100, L700.6800, L505.5000 ####[facility] [address] [place], [address] OPIATES Negative Normal < 300 ng/mL [facility] Comment on above: Performed By: #### L 501.9100, L700.6800, L505.5000 ####[facility] [address] [place], [address] OXYCODONE Negative Normal < 100 ng/mL [facility] Comment on above: Performed By: #### L 501.9100, L700.6800, L505.5000 ####[facility] [address] [place], [address] PCP Negative Normal < 25 ng/mL [facility] Comment on above: Performed By: #### L 501.9100, L700.6800, L505.5000 ####[facility] [address] [place], [address] THC Negative Normal < 50 ng/mL [facility] Comment on above: Performed By: #### L 501.9100, L700.6800, L505.5000 ####[facility] [address] [place], [address] Urine benzodiazepine levelOr dered By: Jose Alexis on 10-31-2024 Benzodiazepines Ql (U) Negative < 200 ng/mL [facility] Urine cocaine levelOrdered B y: Jose Alexis on 10-31-2024 Cocaine Ql (U) Negative < 300 ng/mL [facility] Urine xtekb-9-nqoxqwbqxpvwvu abinol (THC) measurementOrdered By: Jose Alexsi on 10-31-2024 Cannabinoids Screen Ql (U) Negative < 50 ng/mL [facility] Urine phencyclidine (PCP) de tectionOrdered By: Jose Alexis on 10-31-2024 Phencyclidine Ql (U) Negative < 25 ng/mL [facility] White blood cell (WBC) count Ordered By: Jose Alexis on 10-31-2024 WBC (Bld) [#/Vol] 9.4 10*3/uL 4.4-11.0 [facility] 12 Lead EKGon 10-26-2024 12 Lead EKG [facility] [address] [place] [address] 12 Lead EKG 10/26/24 0624 MR#: [id number] Acct: [id number] Name: VERONICA UMAÑA Rep #: [id number] : 1975 49 From: Dillon Florez MD [...] Normal ECG Confirmed by VIKKI COLLINS, DILLON ([id number]), staff editor VERONICA ESCOBAR ([id number]) on 10/30/2024 6:59:46 AM Referred By: Confirmed By: DILLON FLOREZ MD 10/30/2459 Date Dillon Florez MD CC: ADVERTISING WRITERRadha Aguilar; Dr. Ramesh Coffey, DO Signed Normal [facility] Absolute lymphocyte countOrd ered By: Ramesh Coffey on 10-26-2024 Lymphocytes Auto (Unsp spec) [#/Vol] 1.51 10*3/uL 0.83-4.51 [facility] Absolute neutrophil countOrd ered By: Ramesh Coffey on 10-26-2024 Neutrophils (Bld) [#/Vol] 5.4 10*3/uL 2.0-7.7 [facility] Anion gap in Serum or Plasma Ordered By: Ramesh Coffey on 10-26-2024 Anion gap [Moles/Vol] 14 mmol/L 5-15 [facility] Automated lymphocyte count a s percentage of total leukocytesOrdered By: aRmesh Coffey on 10-26-2024 Lymphocytes/100 WBC Auto (Unsp spec) 19.7 % 19-41 [facility] BUN/creatinine ratioOrdered By: Ramesh Coffey on 10-26-2024 Urea nitrogen/Creatinine [Mass ratio] 12.6 mg/mg 10-20 [facility] Basophil percentageOrdered B y: Ramesh Coffey on 10-26-2024 Basophils/100 WBC (Bld) 0.5 % 0-1 [facility] Bilirubin Test strip Ql (U)O rdered By: Ramesh Coffey on 10-26-2024 Bilirubin Ql (U) Negative Negative [facility] Bilirubin, totalOrdered By: Ramesh Coffey on 10-26-2024 Bilirubin [Mass/Vol] 0.86 mg/dL 0.00-1.30 [facility] CBC W/Diff, Automatedon 10-05 Absolute Lymph 1.51 X10 3/uL Normal 0.83-4.51 [facility] Comment on above: Performed By: #### L 100.0100, L501.2450, L500.4050, L501.4021 #### [facility] [address] [place], [address] Absolute Neut 5.4 X10 3/uL Normal 2.0-7.7 [facility] Comment on above: Performed By: #### L 100.0100, L501.2450, L500.4050, L501.4021 #### [facility] [address] [place], [address] Basophils/100 WBC (Bld) 0.5 % Normal 0-1 [facility] Comment on above: Performed By: #### L 100.0100, L501.2450, L500.4050, L501.4021 #### [facility] [address] [place], [address] Eosinophils/100 WBC (Bld) 0.3 % Normal 0-5 [facility] Comment on above: Performed By: #### L 100.0100, L501.2450, L500.4050, L501.4021 #### [facility] [address] [place], [address] Erythrocyte distribution width (RBC) [Ratio] 12.2 % Normal 11.6-14.6 [facility] Comment on above: Performed By: #### L 100.0100, L501.2450, L500.4050, L501.4021 #### [facility] [address] [place], [address] Hematocrit (Bld) [Volume fraction] 37.3 % Normal 37-47 [facility] Comment on above: Performed By: #### L 100.0100, L501.2450, L500.4050, L501.4021 #### [facility] [address] [place], [address] Hemoglobin (Bld) [Mass/Vol] 13.0 g/dL Normal 12.0-15.0 [facility] Comment on above: Performed By: #### L 100.0100, L501.2450, L500.4050, L501.4021 #### [facility] [address] [place], [address] IG% 0.500 Normal 0.0-0.9 [facility] Comment on above: Result Comment: IG% - Immature Granulocytes (promyelocytes, myelocytes and metamyelocytes) > 1% indicates that a LEFT SHIFT is Present. Performed By: #### L 100.0100, L501.2450, L500.4050, L501.4021 #### [facility] [address] [place], [address] Lymphocytes/100 WBC (Bld) 19.7 % Normal 19-41 [facility] Comment on above: Performed By: #### L 100.0100, L501.2450, L500.4050, L501.4021 #### [facility] [address] [place], [address] MCH (RBC) [Entitic mass] 32.2 pg High 27.0-32.0 [facility] Comment on above: Performed By: #### L 100.0100, L501.2450, L500.4050, L501.4021 #### [facility] [address] [place], [address] MCHC (RBC) [Mass/Vol] 34.9 g/dL Normal 32-36 [facility] Comment on above: Performed By: #### L 100.0100, L501.2450, L500.4050, L501.4021 #### [facility] [address] [place], [address] MCV (RBC) [Entitic vol] 92.3 fL Normal 81-99 [facility] Comment on above: Performed By: #### L 100.0100, L501.2450, L500.4050, L501.4021 #### [facility] [address] [place], [address] Monocytes/100 WBC (Bld) 8.5 % Normal 0-10 [facility] Comment on above: Performed By: #### L 100.0100, L501.2450, L500.4050, L501.4021 #### [facility] [address] [place], [address] Neutrophils/100 WBC (Bld) 70.5 % High 47-70 [facility] Comment on above: Performed By: #### L 100.0100, L501.2450, L500.4050, L501.4021 #### [facility] [address] [place], [address] Nucleated RBC (Bld) [#/Vol] 0 10*3/uL Normal 0-5 [facility] Comment on above: Performed By: #### L 100.0100, L501.2450, L500.4050, L501.4021 #### [facility] [address] [place], [address] Platelet mean volume (Bld) [Entitic vol] 9.6 fL Normal 6.2-12.0 [facility] Comment on above: Performed By: #### L 100.0100, L501.2450, L500.4050, L501.4021 #### [facility] [address] [place], [address] Platelets (Bld) [#/Vol] 302 10*3/uL Normal 150-450 [facility] Comment on above: Performed By: #### L 100.0100, L501.2450, L500.4050, L501.4021 #### [facility] [address] [place], [address] RBC (Bld) [#/Vol] 4.04 10*6/uL Low 4.2-5.4 [facility] Comment on above: Performed By: #### L 100.0100, L501.2450, L500.4050, L501.4021 #### [facility] [address] [place], [address] RDW SD 41.5 fl Normal 35.1-43.9 [facility] Comment on above: Performed By: #### L 100.0100, L501.2450, L500.4050, L501.4021 #### [facility] [address] [place], [address] WBC (Bld) [#/Vol] 7.7 10*3/uL Normal 4.4-11.0 [facility] Comment on above: Performed By: #### L 100.0100, L501.2450, L500.4050, L501.4021 #### [facility] [address] [place], [address] Carbon dioxide, total [Moles /volume] in Central venous bloodOrdered By: Ramesh Coffey on 10-26-2024 CO2 [Moles/Vol] 22.4 mmol/L 21.0-32.0 [facility] Chloride assayOrdered By: Ron Coffey on 10-26-2024 Chloride [Moles/Vol] 103 mmol/L 98-108 [facility] Comprehensive Metabolic Prof ilon 10-26-2024 Albumin [Mass/Vol] 4.6 g/dL Normal 3.5-5.0 [facility] Comment on above: Performed By: #### L 100.0100, L501.2450, L500.4050, L501.4021 #### [facility] [address] [place], [address] Albumin/Globulin [Mass ratio] 1.6 {ratio} Normal 0.9-2.4 [facility] Comment on above: Performed By: #### L 100.0100, L501.2450, L500.4050, L501.4021 #### [facility] [address], [address] ALK PHOS 68 U/L Normal 35-104 [facility] Comment on above: Performed By: #### L 100.0100, L501.2450, L500.4050, L501.4021 #### [facility] [address], [address] ALT [Catalytic activity/Vol] 49 U/L High <=34 [facility] Comment on above: Performed By: #### L 100.0100, L501.2450, L500.4050, L501.4021 #### [facility] [address] [place], [address] AST [Catalytic activity/Vol] 36 U/L High <=31 [facility] Comment on above: Performed By: #### L 100.0100, L501.2450, L500.4050, L501.4021 #### [facility] [address] [place], [address] Bilirubin [Mass/Vol] 0.86 mg/dL Normal 0.00-1.30 [facility] Comment on above: Performed By: #### L 100.0100, L501.2450, L500.4050, L501.4021 #### [facility] [address], [address] BUN/CRE 12.6 RATIO Normal 10-20 [facility] Comment on above: Performed By: #### L 100.0100, L501.2450, L500.4050, L501.4021 #### [facility] [address] [place], [address] Calcium [Mass/Vol] 9.7 mg/dL Normal 7.6-11.0 [facility] Comment on above: Performed By: #### L 100.0100, L501.2450, L500.4050, L501.4021 #### [facility] [address] [place], [address] Chloride [Moles/Vol] 103 mmol/L Normal 98-108 [facility] Comment on above: Performed By: #### L 100.0100, L501.2450, L500.4050, L501.4021 #### [facility] [address] [place], [address] CO2 [Moles/Vol] 22.4 mmol/L Normal 21.0-32.0 [facility] Comment on above: Performed By: #### L 100.0100, L501.2450, L500.4050, L501.4021 #### [facility] [address] [place], [address] Creatinine [Mass/Vol] 0.70 mg/dL Normal 0.70-1.20 [facility] Comment on above: Performed By: #### L 100.0100, L501.2450, L500.4050, L501.4021 #### [facility] [address] [place], [address] ECRCL 102.34 ml/min Normal 50-250 [facility] Comment on above: Performed By: #### L 100.0100, L501.2450, L500.4050, L501.4021 #### [facility] [address] [place], [address] GAP 14 Normal 5-15 [facility] Comment on above: Performed By: #### L 100.0100, L501.2450, L500.4050, L501.4021 #### [facility] [address] [place], [address] GFR/1.73 sq M.predicted among non-blacks MDRD (S/P/Bld) [Vol rate/Area] 105 mL/min/{1.73_m2} Normal >60 [facility] Comment on above: Result Comment: mL/m in/1.73m2 CKD-EPI Creatinine Equation (2020) Performed By: #### L 100.0100, L501.2450, L500.4050, L501.4021 #### [facility] [address] [place], [address] Globulin (S) [Mass/Vol] 2.8 g/dL Normal 2.2-4.2 [facility] Comment on above: Performed By: #### L 100.0100, L501.2450, L500.4050, L501.4021 #### [facility] [address] [place], [address] Glucose [Mass/Vol] 123 mg/dL High 70-99 [facility] Comment on above: Performed By: #### L 100.0100, L501.2450, L500.4050, L501.4021 #### [facility] [address] [place], [address] Potassium [Moles/Vol] 4.1 mmol/L Normal 3.3-5.1 [facility] Comment on above: Performed By: #### L 100.0100, L501.2450, L500.4050, L501.4021 #### [facility] [address] [place], [address] Sodium [Moles/Vol] 139 mmol/L Normal 133-145 [facility] Comment on above: Performed By: #### L 100.0100, L501.2450, L500.4050, L501.4021 #### [facility] [address] [place], [address] T PROT 7.4 g/dL Normal 5.9-8.4 [facility] Comment on above: Performed By: #### L 100.0100, L501.2450, L500.4050, L501.4021 #### [facility] [address] [place], [address] Urea nitrogen [Mass/Vol] 9 mg/dL Normal 4-19 [facility] Comment on above: Performed By: #### L 100.0100, L501.2450, L500.4050, L501.4021 #### [facility] [address] [place], [address] Emergency Department Summary on 10-26-2024 Emergency Department Summary [facility] Records Department [address] [place] [address] Emergency Department Summary 10/26/24 MR#: [id number] Acct: [id number] Name: VERONICA UMAÑA Rep #: [id number] : 1975 49 From: Ramesh Coffey DO [...] 10/26/24 0837 Cosigner Signature (if applicable): cc: ADVERTISING WRITER-C Elinor Aguilar * Signed ADDENDUM by Dr. [...] concerned that she was having allergic reaction. [facility] Medical History Fear of travel with panic [...] 08:42 S (more content not included)... Normal [facility] Eosinophil percentageOrdered By: Ramesh Coffey on 10-26-2024 Eosinophils/100 WBC (Bld) 0.3 % 0-5 [facility] Erythrocyte distribution wid th ratioOrdered By: Ramesh Coffey on 10-26-2024 Erythrocyte distribution width (RBC) [Ratio] 12.2 % 11.6-14.6 [facility] Erythrocyte distribution wid th standard deviationOrdered By: Ramesh Coffey on 10-26-2024 Erythrocyte distribution width (RBC) [Ratio] 41.5 fl 35.1-43.9 [facility] Glomerular filtration rate ( GFR) estimation/1.73 sq m using serum, plasma, or whole bOrdered By: Ramesh Coffey on 10-26-2024 GFR/1.73 sq M.predicted among non-blacks MDRD (S/P/Bld) [Vol rate/Area] 105 mL/min/{1.73_m2} >60 [facility] Comment on above: mL/min/1.73m2 CKD-EP I Creatinine Equation (2020) Hematocrit Auto (Bld) [Volum e fraction]Ordered By: Ramesh Coffey on 10-26-2024 Hematocrit (Bld) [Volume fraction] 37.3 % 37-47 [facility] Hemoglobin measurementOrdere d By: Ramesh Coffey on 10-26-2024 Hemoglobin (Bld) [Mass/Vol] 13.0 g/dL 12.0-15.0 [facility] Immature granulocytes/100 WB C Auto (Bld)Ordered By: Rameshnato Coffey on 10-26-2024 Immature granulocytes/100 WBC (Bld) 0.500 % 0.0-0.9 [facility] Comment on above: IG% - Immature Granu locytes (promyelocytes, myelocytes and metamyelocytes) > 1% indicates that a LEFT SHIFT is Present. Ketones Test strip Ql (U)Ord ered By: Ramesh Coffey on 10-26-2024 Ketones Ql (U) 15 mg/dl High Negative [facility] L499.0042on 10-26-2024 Trop T High Sen Normal <=14 [facility] Comment on above: Result Comment: Kimberlee franklin via OM: Ordered Performed By: #### L 499.0042 ####[facility] [address] [place], [address] L499.0043on 10-26-2024 Trop T High Sen Normal <=14 [facility] Comment on above: Result Comment: Kimberlee franklin via OM: Ordered Performed By: #### L 499.0043 ####[facility] [address] [place], [address] L501.4021on 10-26-2024 Trop T High Sen 7 ng/L Normal <=14 [facility] Comment on above: Performed By: #### L 100.0100, L501.2450, L500.4050, L501.4021 #### [facility] [address] [place], [place], [address] Laboratory - Chemistry and C hemistry - challengeOrdered By: Ramesh Coffey on 10-26-2024 AST [Catalytic activity/Vol] 36 U/L High <32 [facility] Lipaseon 10-26-2024 Lipase [Catalytic activity/Vol] 28 U/L Normal 13-75 [facility] Comment on above: Result Comment: Plea se note: LIPASE revised reference range effective 22. New Lipase methodology. Expected to produce lower values than the previous assay method. NEW Reference Range: 13 - 75 U/L Performed By: #### L 100.0100, L501.2450, L500.4050, L501.4021 #### [facility] [address] [place], [place], [address] Lipase measurementOrdered By : Ramesh Coffey on 10-26-2024 Lipase [Catalytic activity/Vol] 28 U/L 13-75 [facility] Comment on above: Please note:LIPASE r evised reference range effective 22. New Lipase methodology. Expected to produce lower values than the previous assay method. NEW Reference Range: 13 - 75 U/L MCV (mean corpuscular volume ) determinationOrdered By: Ramesh Coffey on 10-26-2024 MCV (RBC) [Entitic vol] 92.3 fL 81-99 [facility] Mean corpuscular hemoglobin (MCH) determinationOrdered By: Ramesh Coffey on 10-26-2024 MCH (RBC) [Entitic mass] 32.2 pg High 27.0-32.0 [facility] Mean corpuscular hemoglobin concentration (MCHC) determinationOrdered By: Ramesh Coffey on 10-26-2024 MCHC (RBC) [Mass/Vol] 34.9 g/dL 32-36 [facility] Mean platelet volume determi nationOrdered By: Ramesh Coffey on 10-26-2024 Platelet mean volume (Bld) [Entitic vol] 9.6 fL 6.2-12.0 [facility] Microscopic analysis of urin e for red blood cells (RBC)Ordered By: Ramesh Coffey on 10-26-2024 Microscopic analysis of urine for red blood cells (RBC) 0 SEEN /hpf 0-5 [facility] Monocyte percentageOrdered B y: Ramesh Coffey on 10-26-2024 Monocytes/100 WBC (Bld) 8.5 % 0-10 [facility] Mucus LM Ql (Urine sed)Order ed By: Ramesh Coffey on 10-26-2024 Mucus Ql (Urine sed) 0 SEEN /hpf [facility] Neutrophil percentageOrdered By: Ramesh Coffey on 10-26-2024 Neutrophils/100 WBC (Bld) 70.5 % High 47-70 [facility] Nitrite Test strip Ql (U)Ord ered By: Ramesh Coffey on 10-26-2024 Nitrite Ql (U) Negative Negative [facility] Nucleated red blood cell per centageOrdered By: Ramesh Coffey on 10-26-2024 Nucleated RBC/100 WBC (Bld) [Ratio] 0 % 0-5 [facility] Platelet countOrdered By: Ron Coffey on 10-26-2024 Platelets (Bld) [#/Vol] 302 10*3/uL 150-450 [facility] Potassium measurement (mass/ volume)Ordered By: Ramesh Coffey on 10-26-2024 Potassium (Unsp spec) [Mass/Vol] 4.1 mmol/L 3.3-5.1 [facility] Protein Test strip Ql (U)Ord ered By: Ramesh Coffey on 10-26-2024 Protein Ql (U) Negative Negative [facility] RBC Auto (Bld) [#/Vol]Ordere d By: Ramesh Coffey on 10-26-2024 RBC (Bld) [#/Vol] 4.04 10*6/uL Low 4.2-5.4 [facility] Serum creatinine measurement (mass/volume)Ordered By: Ramesh Coffey on 10-26-2024 Creatinine [Mass/Vol] 0.70 mg/dL 0.70-1.20 [facility] Serum globulin measurementOr dered By: Ramesh Coffey on 10-26-2024 Globulin (S) [Mass/Vol] 2.8 g/dL 2.2-4.2 [facility] Serum glucose measurement (m ass/volume)Ordered By: Ramesh Coffey on 10-26-2024 Glucose [Mass/Vol] 123 mg/dL High 70-99 [facility] Serum or plasma alanine kirk otransferase (ALT) measurementOrdered By: Ramesh Coffey on 10-26-2024 ALT [Catalytic activity/Vol] 49 U/L High <35 [facility] Serum or plasma albumin herberth urement (mass/volume)Ordered By: Ramesh Coffey on 10-26-2024 Albumin [Mass/Vol] 4.6 g/dL 3.5-5.0 [facility] Serum or plasma albumin/glob ulin mass ratioOrdered By: Ramesh Coffey on 10-26-2024 Albumin/Globulin [Mass ratio] 1.6 {ratio} 0.9-2.4 [facility] Serum or plasma alkaline joseph sphatase measurementOrdered By: Ramesh Coffey on 10-26-2024 ALP [Catalytic activity/Vol] 68 U/L 35-104 [facility] Serum or plasma calcium herberth urement (mass/volume)Ordered By: Ramesh Coffey on 10-26-2024 Calcium [Mass/Vol] 9.7 mg/dL 7.6-11.0 [facility] Serum or plasma urea nitroge n measurement (mass/volume)Ordered By: Ramesh Coffey on 10-26-2024 Urea nitrogen [Mass/Vol] 9 mg/dL 4-19 [facility] Sodium levelOrdered By: Dinesh Coffey on 10-26-2024 Sodium [Moles/Vol] 139 mmol/L 133-145 [facility] Squamous epithelial cells de tection in urine sediment by light microscopyOrdered By: Ramesh Coffey on 10-26-2024 Epithelial cells.squamous LM Ql (Urine sed) 5-10 SEEN /hpf 5-10 [facility] Total proteinOrdered By: Franklin Coffey on 10-26-2024 Protein [Mass/Vol] 7.4 g/dL 5.9-8.4 [facility] Troponin T.cardiac [Mass/vol ume] in Serum or Plasma by High sensitivity methodOrdered By: Ramesh Coffey on 10-26-2024 Troponin T.cardiac High sensitivity method [Mass/Vol] 7 ng/L <14 [facility] Urinalysis, Completeon 10-26 BACTERIA 2+ /hpf Normal None Seen [facility] Comment on above: Order Comment: CLEAN CATCH Performed By: #### L 400.0001 ####[facility] [address] [place], [address] EPI,SQUAMOUS 5-10 SEEN Normal 5-10 [facility] Comment on above: Order Comment: CLEAN CATCH Performed By: #### L 400.0001 ####[facility] [address] [facility] [address] WBC 0-5 SEEN Normal 0-5 [facility] Comment on above: Order Comment: CLEAN CATCH Performed By: #### L 400.0001 ####[facility] [address] [facility] [address] BILIRUBIN URINE Negative Normal Negative [facility] Comment on above: Order Comment: CLEAN CATCH Performed By: #### L 400.0001 ####[facility] [address] [place] [id number] Clarity (U) Turbid Normal Clear [facility] Comment on above: Order Comment: CLEAN CATCH Performed By: #### L 400.0001 ####[facility] [address] [facility] [address] Color (U) Straw Normal Yellow [facility] Comment on above: Order Comment: CLEAN CATCH Performed By: #### L 400.0001 ####[facility] [address] [facility] [address] GLUCOSE, UR Normal Normal Normal [facility] Comment on above: Order Comment: CLEAN CATCH Performed By: #### L 400.0001 ####[facility] [address] [facility] [address] KETONE UR 15 mg/dl Abnormal Negative [facility] Comment on above: Order Comment: CLEAN CATCH Performed By: #### L 400.0001 ####[facility] [address] [facility] [address] LEUK ESTERASE Negative Normal Negative [facility] Comment on above: Order Comment: CLEAN CATCH Performed By: #### L 400.0001 ####[facility] [address] [place], [address] Nitrite Ql (U) Negative Normal Negative [facility] Comment on above: Order Comment: CLEAN CATCH Performed By: #### L 400.0001 ####[facility] [address] [place], [address] OCCULT BLOOD-UR Negative Normal Negative [facility] Comment on above: Order Comment: CLEAN CATCH Performed By: #### L 400.0001 ####[facility] [address] [place], [address] pH UR 6.5 Normal 5.0 - 8.0 [facility] Comment on above: Order Comment: CLEAN CATCH Performed By: #### L 400.0001 ####[facility] [address] [place], [address] PROT DIPSTX Negative Normal Negative [facility] Comment on above: Order Comment: CLEAN CATCH Performed By: #### L 400.0001 ####[facility] [address] [place], [address] SP.GR. DIPSTX 1.010 Normal 1.002-1.030 [facility] Comment on above: Order Comment: CLEAN CATCH Performed By: #### L 400.0001 ####[facility] [address] [place], [address] UROBILI Normal Normal Normal [facility] Comment on above: Order Comment: CLEAN CATCH Performed By: #### L 400.0001 ####[facility] [address] [place], [address] Mucus Ql (Urine sed) 0 SEEN Normal [facility] Comment on above: Order Comment: CLEAN CATCH Performed By: #### L 400.0001 ####[facility] [address] [facility] [id number] RBC 0 SEEN Normal 0-5 [facility] Comment on above: Order Comment: CLEAN CATCH Performed By: #### L 400.0001 ####[facility] [id number] [place], [place], [id number] Urine clarityOrdered By: Franklin Coffey on 10-26-2024 Clarity (U) Turbid Clear [facility] Urine color determinationOrd ered By: Ramesh Coffey on 10-26-2024 Color (U) Straw Yellow [facility] Urine glucose detectionOrder ed By: Ramesh Coffey on 10-26-2024 Glucose Ql (U) Normal mg/dl Normal [facility] Urine leukocyte esterase det ection by dipstickOrdered By: Ramesh Coffey on 10-26-2024 Leukocyte esterase Test strip Ql (U) Negative Negative [facility] Urine pHOrdered By: Ramesh mendieta on 10-26-2024 pH (U) 6.5 [pH] 5.0 - 8.0 [facility] Urine sediment bacteria coun t by microscopy (number/high power field)Ordered By: Ramesh Coffey on 10-26-2024 Bacteria LM.HPF (Urine sed) [#/Area] 2 /[HPF] None Seen [facility] Urine specific gravity measu rementOrdered By: Ramesh Coffey on 10-26-2024 Specific gravity (U) [Rel density] 1.010 1.002-1.030 [facility] Urine urobilinogen measureme ntOrdered By: Ramesh Coffey on 10-26-2024 Urobilinogen Ql (U) Normal mg/dl Normal [facility] White blood cell (WBC) count Ordered By: Ramesh Coffey on 10-26-2024 WBC (Bld) [#/Vol] 7.7 10*3/uL 4.4-11.0 [facility] White blood cell countOrdere d By: Ramesh Coffey on 10-26-2024 White blood cell count 0-5 SEEN /hpf 0-5 [facility] Absolute lymphocyte countOrd ered By: Elinor Aguilar on 09-06-2024 Lymphocytes Auto (Unsp spec) [#/Vol] 2.17 10*3/uL 0.83-4.51 [facility] Absolute neutrophil countOrd ered By: Elinor Aguilar on 09-06-2024 Neutrophils (Bld) [#/Vol] 4.7 10*3/uL 2.0-7.7 [facility] Anion gap in Serum or Plasma Ordered By: Elinor Aguilar on 09-06-2024 Anion gap [Moles/Vol] 10 mmol/L 5-15 [facility] Automated lymphocyte count a s percentage of total leukocytesOrdered By: Elinor Aguilar on 09-06-2024 Lymphocytes/100 WBC Auto (Unsp spec) 28.3 % 19- [facility] BUN/creatinine ratioOrdered By: Elinor Aguilar on 09-06-2024 Urea nitrogen/Creatinine [Mass ratio] 12.4 mg/mg 10-20 [facility] Basophil percentageOrdered B y: Elinor Aguilar on 09-06-2024 Basophils/100 WBC (Bld) 0.8 % 0-1 [facility] Bilirubin, totalOrdered By: Elinor Aguilar on 09-06-2024 Bilirubin [Mass/Vol] 0.27 mg/dL 0.00-1.30 [facility] CBC W/Diff, Automatedon Absolute Lymph 2.17 X10 3/uL Normal 0.83-4.51 [facility] Comment on above: Performed By: #### L 500.4050, L100.0100 #### [facility] [address] [place], [address] Absolute Neut 4.7 X10 3/uL Normal 2.0-7.7 [facility] Comment on above: Performed By: #### L 500.4050, L100.0100 #### [facility] [address] [place], [address] Basophils/100 WBC (Bld) 0.8 % Normal 0-1 [facility] Comment on above: Performed By: #### L 500.4050, L100.0100 #### [facility] [address] [place], [address] Eosinophils/100 WBC (Bld) 0.8 % Normal 0-5 [facility] Comment on above: Performed By: #### L 500.4050, L100.0100 #### [facility] [address] [place], [address] Erythrocyte distribution width (RBC) [Ratio] 12.6 % Normal 11.6-14.6 [facility] Comment on above: Performed By: #### L 500.4050, L100.0100 #### [facility] [address] [place], [address] Hematocrit (Bld) [Volume fraction] 38.1 % Normal 37-47 [facility] Comment on above: Performed By: #### L 500.4050, L100.0100 #### [facility] [address] [place], [address] Hemoglobin (Bld) [Mass/Vol] 12.6 g/dL Normal 12.0-15.0 [facility] Comment on above: Performed By: #### L 500.4050, L100.0100 #### [facility] [address] [place], [address] IG% 0.400 Normal 0.0-0.9 [facility] Comment on above: Result Comment: IG% - Immature Granulocytes (promyelocytes, myelocytes and metamyelocytes) > 1% indicates that a LEFT SHIFT is Present. Performed By: #### L 500.4050, L100.0100 #### [facility] [address] [place], [address] Lymphocytes/100 WBC (Bld) 28.3 % Normal 19-41 [facility] Comment on above: Performed By: #### L 500.4050, L100.0100 #### [facility] [address] [place], [address] MCH (RBC) [Entitic mass] 31.3 pg Normal 27.0-32.0 [facility] Comment on above: Performed By: #### L [id number], L100.0100 #### [facility] [address] [place], [address] MCHC (RBC) [Mass/Vol] 33.1 g/dL Normal 32-36 [facility] Comment on above: Performed By: #### L 500.4050, L100.0100 #### [facility] [address] [place], [address] MCV (RBC) [Entitic vol] 94.5 fL Normal 81-99 [facility] Comment on above: Performed By: #### L 500.4050, L100.0100 #### [facility] [address], [address] Monocytes/100 WBC (Bld) 8.5 % Normal 0-10 [facility] Comment on above: Performed By: #### L 500.4050, L100.0100 #### [facility] [address] [place], [address] Neutrophils/100 WBC (Bld) 61.2 % Normal 47-70 [facility] Comment on above: Performed By: #### L 500.4050, L100.0100 #### [facility] [address] [place], [address] Nucleated RBC (Bld) [#/Vol] 0 10*3/uL Normal 0-5 [facility] Comment on above: Performed By: #### L 500.4050, L100.0100 #### [facility] [address] [place], [address] Platelet mean volume (Bld) [Entitic vol] 10.2 fL Normal 6.2-12.0 [facility] Comment on above: Performed By: #### L 500.4050, L100.0100 #### [facility] [address] [place], [address] Platelets (Bld) [#/Vol] 325 10*3/uL Normal 150-450 [facility] Comment on above: Performed By: #### L 500.4050, L100.0100 #### [facility] [address] [place], [address] RBC (Bld) [#/Vol] 4.03 10*6/uL Low 4.2-5.4 [facility] Comment on above: Performed By: #### L 500.4050, L100.0100 #### [facility] [address] [place], [address] RDW SD 43.8 fl Normal 35.1-43.9 [facility] Comment on above: Performed By: #### L 500.4050, L100.0100 #### [facility] [address] [place], [address] WBC (Bld) [#/Vol] 7.7 10*3/uL Normal 4.4-11.0 [facility] Comment on above: Performed By: #### L 500.4050, L100.0100 #### [facility] [address] [place], [address] Carbon dioxide, total [Moles /volume] in Central venous bloodOrdered By: Elinor Aguilar on 09-06-2024 CO2 [Moles/Vol] 26.6 mmol/L 21.0-32.0 [facility] Chloride assayOrdered By: Ayden Aguilar on 09-06-2024 Chloride [Moles/Vol] 104 mmol/L 98-108 [facility] Comprehensive Metabolic Prof ilon 09-06-2024 Albumin [Mass/Vol] 4.6 g/dL Normal 3.5-5.0 [facility] Comment on above: Performed By: #### L 500.4050, L100.0100 #### [facility] [address] [place], [address] Albumin/Globulin [Mass ratio] 2.0 {ratio} Normal 0.9-2.4 [facility] Comment on above: Performed By: #### L 500.4050, L100.0100 #### [facility] [address] [place], [address] ALK PHOS 75 U/L Normal 35-104 [facility] Comment on above: Performed By: #### L 500.4050, L100.0100 #### [facility] [address] [place], [address] ALT [Catalytic activity/Vol] 25 U/L Normal <=34 [facility] Comment on above: Performed By: #### L 500.4050, L100.0100 #### [facility] [address] [place], [address] AST [Catalytic activity/Vol] 18 U/L Normal <=31 [facility] Comment on above: Performed By: #### L 500.4050, L100.0100 #### [facility] [address] [place], [address] Bilirubin [Mass/Vol] 0.27 mg/dL Normal 0.00-1.30 [facility] Comment on above: Performed By: #### L 500.4050, L100.0100 #### [facility] [address] [place], [address] BUN/CRE 12.4 RATIO Normal 10-20 [facility] Comment on above: Performed By: #### L 500.4050, L100.0100 #### [facility] [address] [place], [address] Calcium [Mass/Vol] 9.9 mg/dL Normal 7.6-11.0 [facility] Comment on above: Performed By: #### L 500.4050, L100.0100 #### [facility] [address] [place], [address] Chloride [Moles/Vol] 104 mmol/L Normal 98-108 [facility] Comment on above: Performed By: #### L 500.4050, L100.0100 #### [facility] [address] [place], [address] CO2 [Moles/Vol] 26.6 mmol/L Normal 21.0-32.0 [facility] Comment on above: Performed By: #### L 500.4050, L100.0100 #### [facility] [address] [place], [address] Creatinine [Mass/Vol] 0.68 mg/dL Low 0.70-1.20 [facility] Comment on above: Performed By: #### L 500.4050, L100.0100 #### [facility] [address] [place], [address] GAP 10 Normal 5-15 [facility] Comment on above: Performed By: #### L 500.4050, L100.0100 #### [facility] [address] [place], [address] GFR/1.73 sq M.predicted among non-blacks MDRD (S/P/Bld) [Vol rate/Area] 106 mL/min/{1.73_m2} Normal >60 [facility] Comment on above: Result Comment: mL/m in/1.73m2 CKD-EPI Creatinine Equation (2020) Performed By: #### L 500.4050, L100.0100 #### [facility] [address] [place], [address] Globulin (S) [Mass/Vol] 2.3 g/dL Normal 2.2-4.2 [facility] Comment on above: Performed By: #### L 500.4050, L100.0100 #### [facility] [address] [place], [address] Glucose [Mass/Vol] 103 mg/dL High 70-99 [facility] Comment on above: Performed By: #### L 500.4050, L100.0100 #### [facility] [address] [place], [address] Potassium [Moles/Vol] 4.4 mmol/L Normal 3.3-5.1 [facility] Comment on above: Performed By: #### L 500.4050, L100.0100 #### [facility] [address] [place], [address] Sodium [Moles/Vol] 141 mmol/L Normal 133-145 [facility] Comment on above: Performed By: #### L 500.4050, L100.0100 #### [facility] [address] [place], [address] T PROT 6.9 g/dL Normal 5.9-8.4 [facility] Comment on above: Performed By: #### L 500.4050, L100.0100 #### [facility] [address] [place], [address] Urea nitrogen [Mass/Vol] 8 mg/dL Normal 4-19 [facility] Comment on above: Performed By: #### L 500.4050, L100.0100 #### [facility] [address] [place], [address] Eosinophil percentageOrdered By: Elinor Aguilar on 09-06-2024 Eosinophils/100 WBC (Bld) 0.8 % 0-5 [facility] Erythrocyte distribution wid th (RBC) [Ratio]Ordered By: Elinor Aguilar on 09-06-2024 Erythrocyte distribution width (RBC) [Entitic vol] 43.8 fL 35.1-43.9 [facility] Erythrocyte distribution wid th ratioOrdered By: Elinor Aguilar on 09-06-2024 Erythrocyte distribution width (RBC) [Ratio] 12.6 % 11.6-14.6 [facility] Erythrocyte distribution wid th standard deviationOrdered By: Elinor Aguilar on 09-06-2024 Erythrocyte distribution width (RBC) [Ratio] 43.8 fl 35.1-43.9 [facility] GFR/1.73 sq M.predicted natan g non-blacks MDRD (S/P/Bld) [Vol rate/Area]Ordered By: Elinor Aguilar on 09-06-2024 Estimated GFR (MDRD) Non-Af Amer 106 >60 [facility] Comment on above: mL/min/1.73m2 CKD-EP I Creatinine Equation (2020) Glomerular filtration rate ( GFR) estimation/1.73 sq m using serum, plasma, or whole bOrdered By: Elinor Aguilar on 09-06-2024 GFR/1.73 sq M.predicted among non-blacks MDRD (S/P/Bld) [Vol rate/Area] 106 mL/min/{1.73_m2} >60 [facility] Comment on above: mL/min/1.73m2 CKD-EP I Creatinine Equation (2020) Hematocrit Auto (Bld) [Volum e fraction]Ordered By: Elinor Aguilar on 09-06-2024 Hematocrit (Bld) [Volume fraction] 38.1 % 37-47 [facility] Hemoglobin measurementOrdere d By: Elinor Aguilar on 09-06-2024 Hemoglobin (Bld) [Mass/Vol] 12.6 g/dL 12.0-15.0 [facility] Immature granulocytes/100 WB C Auto (Bld)Ordered By: Elinor Aguilar on 09-06-2024 Immature granulocytes/100 WBC (Bld) 0.400 % 0.0-0.9 [facility] Comment on above: IG% - Immature Granu locytes (promyelocytes, myelocytes and metamyelocytes) > 1% indicates that a LEFT SHIFT is Present. Laboratory - Chemistry and C hemistry - challengeOrdered By: Elinor Aguilar on 09-06-2024 AST [Catalytic activity/Vol] 18 U/L <32 [facility] Lymphocytes Auto (Unsp spec) [#/Vol]Ordered By: Elinor Aguilar on 09-06-2024 Lymphocytes (Bld) [#/Vol] 2.17 10*3/uL 0.83-4.51 [facility] Lymphocytes/100 WBC Auto (Un sp spec)Ordered By: Elinor Aguilar on 09-06-2024 Lymphocytes/100 WBC (Bld) 28.3 % 19-41 [facility] MCV (mean corpuscular volume ) determinationOrdered By: Elinor Aguilar on 09-06-2024 MCV (RBC) [Entitic vol] 94.5 fL 81-99 [facility] Mean corpuscular hemoglobin (MCH) determinationOrdered By: Elinor Aguilar on 09-06-2024 MCH (RBC) [Entitic mass] 31.3 pg 27.0-32.0 [facility] Mean corpuscular hemoglobin concentration (MCHC) determinationOrdered By: Elinor Aguilar on 09-06-2024 MCHC (RBC) [Mass/Vol] 33.1 g/dL 32-36 [facility] Mean platelet volume determi nationOrdered By: Elinor Aguilar on 09-06-2024 Platelet mean volume (Bld) [Entitic vol] 10.2 fL 6.2-12.0 [facility] Monocyte percentageOrdered B y: Elinor Aguilar on 09-06-2024 Monocytes/100 WBC (Bld) 8.5 % 0-10 [facility] Neutrophil percentageOrdered By: Elinor Aguilar on 09-06-2024 Neutrophils/100 WBC (Bld) 61.2 % 47-70 [facility] Nucleated red blood cell per centageOrdered By: Elinor Aguilar on 09-06-2024 Nucleated RBC/100 WBC (Bld) [Ratio] 0 % 0-5 [facility] Platelet countOrdered By: Ayden Aguilar on 09-06-2024 Platelets (Bld) [#/Vol] 325 10*3/uL 150-450 [facility] Potassium (Unsp spec) [Mass/ Vol]Ordered By: Elinor Aguilar on 09-06-2024 Potassium [Moles/Vol] 4.4 mmol/L 3.3-5.1 [facility] Potassium measurement (mass/ volume)Ordered By: Elinor Aguilar on 09-06-2024 Potassium (Unsp spec) [Mass/Vol] 4.4 mmol/L 3.3-5.1 [facility] RBC Auto (Bld) [#/Vol]Ordere d By: Elinor Aguilar on 09-06-2024 RBC (Bld) [#/Vol] 4.03 10*6/uL Low 4.2-5.4 [facility] Serum creatinine measurement (mass/volume)Ordered By: Elinor Aguilar on 09-06-2024 Creatinine [Mass/Vol] 0.68 mg/dL Low 0.70-1.20 [facility] Serum globulin measurementOr dered By: Elinor Aguilar on 09-06-2024 Globulin (S) [Mass/Vol] 2.3 g/dL 2.2-4.2 [facility] Serum glucose measurement (m ass/volume)Ordered By: Elinor Aguilar on 09-06-2024 Glucose [Mass/Vol] 103 mg/dL High 70-99 [facility] Serum or plasma alanine kirk otransferase (ALT) measurementOrdered By: Elinor Aguilar on 09-06-2024 ALT [Catalytic activity/Vol] 25 U/L <35 [facility] Serum or plasma albumin herberth urement (mass/volume)Ordered By: Elinor Aguilar on 09-06-2024 Albumin [Mass/Vol] 4.6 g/dL 3.5-5.0 [facility] Serum or plasma albumin/glob ulin mass ratioOrdered By: Elinor Aguilar on 09-06-2024 Albumin/Globulin [Mass ratio] 2.0 {ratio} 0.9-2.4 [facility] Serum or plasma alkaline joseph sphatase measurementOrdered By: Elinor Aguilar on 09-06-2024 ALP [Catalytic activity/Vol] 75 U/L 35-104 [facility] Serum or plasma calcium herberth urement (mass/volume)Ordered By: Elinor Aguilar on 09-06-2024 Calcium [Mass/Vol] 9.9 mg/dL 7.6-11.0 [facility] Serum or plasma urea nitroge n measurement (mass/volume)Ordered By: Elinor Aguilar on 09-06-2024 Urea nitrogen [Mass/Vol] 8 mg/dL 4-19 [facility] Sodium levelOrdered By: Renny Aguilar on 09-06-2024 Sodium [Moles/Vol] 141 mmol/L 133-145 [facility] Total proteinOrdered By: Ruby Aguilar on 09-06-2024 Protein [Mass/Vol] 6.9 g/dL 5.9-8.4 [facility] White blood cell (WBC) count Ordered By: Elinor Aguilar on 09-06-2024 WBC (Bld) [#/Vol] 7.7 10*3/uL 4.4-11.0 [facility] CNOVon 11-16-2023 CNOV Office Visit (UCWSTR ) VERONICA UMAÑA ([id number]) 1975 F Date Time Provider Department 11/16/23 9:15 AM [facility] During your visit today, we recorded the following information about you: Temperature Pulse Respiration Blood pressure 98.1 degrees 93/minute 18/minute 138/84 Weight 73 kg Lc Marin MD 11/16/2023 10:40 AM Signed Patient presents with: Eye Problem: Right eye swelling and right big toe pain-from pedicure yesterday HPI: Skin Lesion: Location: right great toe medial border Duration: had a hang nail removed at the [facility] [employer] yesterday Pruritis/Pain: tender Drainage/blister/pustul e/ulceration: redness, swelling, [...] Eye Problem (more content not included)... Normal [facility] Gram stain for investigation of transfusion reactionOrdered By: Charlette Tran on 10-06-2023 Microscopic observation Gram stain Nom (Unsp spec) [facility] No Panel InformationOrdered By: Charlette Tran on 10-06-2023 Genital Culture Neisseria or beta-hemolytic Streptococcus isolated. [facility] Basophil percentageOrdered B y: Natividad Yee on 03-22-2023 Bilirubin [Mass/Vol] 0.50 mg/dL 0.20-1.00 [facility] Comment on above: For patients on eltr ombopag therapy, use of Dimension [place] TBIL is not recommended. Chloride [Moles/Vol] 104 mmol/L 98-107 [facility] Glucose [Mass/Vol] 94 mg/dL 74-106 [facility] Potassium [Moles/Vol] 3.5 mmol/L 3.5-5.1 [facility] Protein [Mass/Vol] 7.1 g/dL 6.4-8.2 [facility] Sodium [Moles/Vol] 138 mmol/L 136-145 [facility] Laboratory - Chemistry and C hemistry - challengeOrdered By: Natividad [place] on 03-22-2023 ALP [Catalytic activity/Vol] 61 U/L 45-117 [facility] ALT [Catalytic activity/Vol] 21 U/L 13-56 [facility] CO2 [Moles/Vol] 29.0 mmol/L 21.0-32.0 [facility] Globulin (S) [Mass/Vol] 3.5 g/dL 2.2-4.2 [facility] Urea nitrogen/Creatinine [Mass ratio] 22.5 mg/mg 10-20 [facility] No Panel InformationOrdered By: [facility] Estimated GFR (MDRD) Amer 112 mL/min >60 [facility] Comment on above: GFR Calc Estimated GFR (MDRD) Non-Af Amer 93 mL/min >60 [facility] Comment on above: Non- GFR Calc Parathyroid Hormone (Intact) 48.8 pg/mL 18.4-80.1 [facility] Serum or plasma albumin herberth urement (mass/volume)Ordered By: Natividad Yee on 03-22-2023 Albumin [Mass/Vol] 3.6 g/dL 3.2-5.0 [facility] Serum or plasma albumin/glob ulin mass ratioOrdered By: Natividad [place] on 03-22-2023 Albumin/Globulin [Mass ratio] 1.0 {ratio} 0.9-2.4 [facility] Serum or plasma calcium herberth urement (mass/volume)Ordered By: [facility] on 03-22-2023 Calcium [Mass/Vol] 9.3 mg/dL 8.5-10.1 [facility] Serum or plasma creatinine m easurement (mass/volume)Ordered By: [facility] on 03-22-2023 Creatinine [Mass/Vol] 0.71 mg/dL 0.55-1.02 [facility] Comment on above: The validity of the calculated GFR & GFRAA in patients over 70 years has not been determined. Clinical correlation is essential. Serum or plasma urea nitroge n measurement (mass/volume)Ordered By: [facility] on 03-22-2023 Urea nitrogen [Mass/Vol] 16 mg/dL 7-18 [facility] Thin prep Papanicolaou smear with manual screeningOrdered By: [facility] on 03-22-2023 Thin prep Papanicolaou smear with manual screening 9 U/L 15-37 [facility] Thin prep Papanicolaou smear with manual screening 5 5-15 [facility] Laboratory - Drug toxicology Ordered By: Dr. Lyane on 08-17-2022 Amphetamines Ql (U) Negative <1000 ng/mL [facility] Benzodiazepines Ql (U) Negative < 200 ng/mL [facility] Cannabinoids Screen Ql (U) Negative < 50 ng/mL [facility] Cocaine Ql (U) Negative < 300 ng/mL [facility] Opiates Ql (U) Negative < 300 ng/mL [facility] No Panel InformationOrdered By: Dr. Layne on 08-17-2022 MDMA (Ecstasy) Screen Negative < 500 ng/mL [facility] Miscellaneous Test See comment [facility] Comment on above: TEST RESULTS LIMITST ramadol Tramadol Positive [id number] Tramadol Conf, [place], [place] 2720 ng/mL Ixlpfk=[id number] TESTING PERFORMED AT [facility]. ORIGINAL REPORT ON FILE IN LAB CONTAINS ADDITIONAL TEST SITE INFORMATION. Urine Barbiturates Screen Negative < 200 ng/mL [facility] Urine Drug Screen Comment [facility] Comment on above: CONFIRMATORY TESTING FOR ALL [...] TESTING MUST BE ORDERED SEPARATELY. USE TESTMNEMONIC: [facility] Urine Methadone Screen Negative < 300 ng/mL [facility] Urine phencyclidine (PCP) de tectionOrdered By: Dr. Layne on 08-17-2022 Phencyclidine Ql (U) Negative < 25 ng/mL [facility] EMG(NEURO/NI)on 08-05-2022 [facility] Laboratory - Drug toxicology Ordered By: Dr. Layne on 07-20-2022 Amphetamines Ql (U) Negative <1000 ng/mL [facility] Benzodiazepines Ql (U) Negative < 200 ng/mL [facility] Cannabinoids Screen Ql (U) Negative < 50 ng/mL [facility] Cocaine Ql (U) Negative < 300 ng/mL [facility] Opiates Ql (U) Negative < 300 ng/mL [facility] No Panel InformationOrdered By: Dr. Layne on 07-20-2022 MDMA (Ecstasy) Screen Negative < 500 ng/mL [facility] Miscellaneous Test See comment [facility] Comment on above: TEST RESULT LIMITSTr amadol Negative ng/mL [id number] TESTING PERFORMED AT [facility]. ORIGINAL REPORT ON FILE IN LAB CONTAINS ADDITIONAL TEST SITE INFORMATION. Urine Barbiturates Screen Negative < 200 ng/mL [facility] Urine Drug Screen Comment [facility] Comment on above: CONFIRMATORY TESTING FOR ALL [...] TESTING MUST BE ORDERED SEPARATELY. USE TESTMNEMONIC: [facility] Urine Methadone Screen Negative < 300 ng/mL [facility] Urine phencyclidine (PCP) de tectionOrdered By: Dr. Layne on 07-20-2022 Phencyclidine Ql (U) Negative < 25 ng/mL [facility] Basophil percentageon 2021 Basophil percentage < 0.9 mg/dL 0.55-1.02 [facility] Work Phone: No Panel Informationon 11-09 Bedside Estimated GFR (eGFR) > 60.0000 mL/min >60 [facility] Work Phone: COMPREHENSIVE METABOLIC PANE [place] 10-17-2020 Albumin [Mass/Vol] 4.7 g/dL Normal 3.6-5.1 [facility] Comment on above: Performed By: #### 1 [id number], [id number] #### [facility] [address], [address] [place] [id number] [employer]: Marcelino Matthews MD Albumin/Globulin [Mass ratio] 1.9 {ratio} Normal 1.0-2.5 [facility] Comment on above: Performed By: #### 1 [id number], [id number] #### [facility] [address], [address] [place] [address] Motel Operator: Marcelino Matthews MD ALP [Catalytic activity/Vol] 65 U/L Normal 31-125 [facility] Comment on above: Performed By: #### 1 0231, [address] #### [facility] [place] [address] [employer] Operator: Marcelino Matthews MD ALT [Catalytic activity/Vol] 13 U/L Normal 6-29 [facility] Comment on above: Performed By: #### 1 0231, [id number] #### [facility] [place] [address] Motel Operator: Marcelino Matthews MD AST [Catalytic activity/Vol] 15 U/L Normal 10-35 [facility] Comment on above: Performed By: #### 1 0231, [id number] #### [facility] [place] [address] Motel Operator: Marcelino Matthews MD Bilirubin [Mass/Vol] 0.5 mg/dL Normal 0.2-1.2 [facility]ues t [facility] Comment on above: Performed By: #### 1 0231, 52151 #### [facility] [place] [address] Motel Operator: Marcelino Matthews MD BUN/CREATININE RATIO NOT APPLICABLE Normal 6-22 [facility] Comment on above: Performed By: #### 1 0231, 62136 #### [facility] [place] [address] Motel Operator: Marcelino Matthews MD Calcium [Mass/Vol] 9.7 mg/dL Normal 8.6-10.2 [facility] Comment on above: Performed By: #### 1 0231, 06977 #### [facility] [place] [address] Motel Operator: Marcelino Matthews MD Chloride [Moles/Vol] 102 mmol/L Normal 98-110 [facility] Comment on above: Performed By: #### 1 0231, 81637 #### [facility] [place] [address] Motel Operator: Marcelino Matthews MD CO2 [Moles/Vol] 31 mmol/L Normal 20-32 [facility] Comment on above: Performed By: #### 1 0231, 43419 #### [facility] [place] [address] Motel Operator: Marcelino Matthews MD Creatinine [Mass/Vol] 0.83 mg/dL Normal 0.50-1.[address] [facility] Comment on above: Performed By: #### 1 0231, 63123 #### [facility] [place] [address] Motel Operator: Marcelino Matthews MD eGFR NON-AFR. [place] 84 mL/min/1.73m2 Normal > OR = 60 [facility] Comment on above: Performed By: #### 1 0231, 59098 #### [facility] [place] [address] Motel Operator: Marcelino Matthews MD GFR/1.73 sq M.predicted among blacks MDRD (S/P/Bld) [Vol rate/Area] 97 mL/min/{1.73_m2} Normal > OR = 60 [facility] Comment on above: Performed By: #### 1 0231, 60538 #### [facility] [place] [address] Motel Operator: Marcelino Matthews MD Globulin (S) [Mass/Vol] 2.5 g/dL Normal 1.9-3.7 [facility] Comment on above: Performed By: #### 1 0231, 77647 #### [facility] [place] [address] Motel Operator: Marcelino Matthews MD Glucose [Mass/Vol] 100 mg/dL High 65-99 [facility] Comment on above: Result Comment: Fasting reference interval For someone without known diabetes, a glucose value between 100 and 125 mg/dL is consistent with prediabetes and should be confirmed with a follow-up test. Performed By: #### 1 0231, [id number] #### [facility] [address], [address] [place] [address] Motel Operator: Marcelino Matthews MD Potassium [Moles/Vol] 4.2 mmol/L Normal 3.5-5.[address] [facility] Comment on above: Performed By: #### 1 0231, 86191 #### [facility] [address], [address] [place] [address] Motel Operator: Marcelino Matthews MD Protein [Mass/Vol] 7.2 g/dL Normal 6.1-8.1 [facility] Comment on above: Performed By: #### 1 0231, 50712 #### [facility] [address], [address] [place] [address] Motel Operator: Marcelino Matthews MD Sodium [Moles/Vol] 138 mmol/L Normal 135-146 [facility] Comment on above: Performed By: #### 1 0231, 99603 #### [facility] [place] [address] Motel Operator: Marcelino Matthews MD Urea nitrogen [Mass/Vol] 10 mg/dL Normal 7-25 [facility] Comment on above: Performed By: #### 1 0231, 20480 #### [facility] [place] [address] Motel Operator: Marcelino Matthews MD SARS COV 2 [...] providers and patients using the following websites: https://www.AlpineReplay.Conjur/home/Covid-19/HCP/antibody/ fact-sheet8 https://www.AlpineRe[employer].Conjur/home/Covid-19/Patients/ antibody/fact-sheet8 Healthcare Providers: For additional information please refer to: http://education.Tapatalk.Conjur/faq/YZR891 (This link is being provided for informational/ educational purposes only.) This test has been authorized by the FDA under an Emergency Use Authorization (EUA) for use by authorized laboratories. The FDA authorized labeling is available on the [employer] website: www.AlpineReplay.Conjur/Covid19. Performed By: #### 1 0231, 23255 #### [facility] [address], [address] [place] [id number] Motel Operator: Marcelino Matthews MD Office Visit: Establish Care on 11-17-2015 Protein mass conc Done [facility] Work Phone: [phone] Tobacco smoking status NHIS Never [facility] Work Phone: [phone] Tobacco smoking status NHIS Never smoker [facility] Work Phone: [phone] Vital Signs Date Time Vital Sign Value Performing Clinician Facility 11-30-2024 09:19-0400 Body height 170.18 cm [employer] Work Phone: [facility] 11-30-2024 09:19-0400 Body mass index (BMI) [Ratio] 26.2 kg/m2 [employer] Work Phone: [facility] 11-30-2024 09:19-0400 Body temperature 97.5 [degF] [employer] Work Phone: [facility] 11-30-2024 09:19-0400 Body weight 75.74 kg [employer] Work Phone: [facility] 11-30-2024 09:19-0400 Diastolic blood pressure 92 mm[Hg] [employer] Work Phone: [facility] 11-30-2024 09:19-0400 Heart rate 77 /min [employer] Work Phone: [facility] 11-30-2024 09:19-0400 Respiratory rate 18 /min [employer] Work Phone: [facility] 11-30-2024 09:19-0400 SaO2% (BldA) [Mass fraction] 98 % [employer] Work Phone: [facility] 11-30-2024 09:19-0400 Systolic blood pressure 142 mm[Hg] [employer] Work Phone: [facility] 11-05-2024 19:36-0400 Body temperature 98 [degF] [employer] Work Phone: [facility] 11-05-2024 19:36-0400 Diastolic blood pressure 90 mm[Hg] [employer] PA-C Work Phone: [facility] 11-05-2024 19:36-0400 Heart rate 85 /min [employer] PA-C Work Phone: [facility] 11-05-2024 19:36-0400 Respiratory rate 18 /min [employer] PA-C Work Phone: [facility] 11-05-2024 19:36-0400 SaO2% (BldA) [Mass fraction] 100 % [employer] PA-C Work Phone: [facility] 11-05-2024 19:36-0400 Systolic blood pressure 143 mm[Hg] [employer] PA-C Work Phone: [facility] 11-05-2024 15:29-0400 Body height 170.18 cm [employer] PA-C Work Phone: [facility] 11-05-2024 15:29-0400 Body mass index (BMI) [Ratio] 26.7 kg/m2 [employer] PA-C Work Phone: [facility] 11-05-2024 15:29-0400 Body weight 77.38 kg [employer] PA-C Work Phone: [facility] 10-31-2024 11:00-0400 Diastolic blood pressure 81 mm[Hg] [employer] PA-C Work Phone: [facility] 10-31-2024 11:00-0400 Heart rate 114 /min [employer] PA-C Work Phone: [facility] 10-31-2024 11:00-0400 Respiratory rate 20 /min [employer] PA-C Work Phone: [facility] 10-31-2024 11:00-0400 SaO2% (BldA) [Mass fraction] 18 % [employer] PA-C Work Phone: [facility] 10-31-2024 11:00-0400 Systolic blood pressure 157 mm[Hg] [employer] PA-C Work Phone: [facility] 10-31-2024 07:20-0400 Body height 167.64 cm [employer] PA-C Work Phone: [facility] 10-31-2024 07:20-0400 Body mass index (BMI) [Ratio] 27.7 kg/m2 [employer] PA-C Work Phone: [facility] 10-31-2024 07:20-0400 Body temperature 98.4 [degF] [employer] PA-C Work Phone: [facility] 10-31-2024 07:20-0400 Body weight 77.88 kg [employer] PA-C Work Phone: [facility] 10-26-2024 08:30-0400 Body temperature 98.1 [degF] [employer] PA-C Work Phone: [facility] 10-26-2024 08:30-0400 Diastolic blood pressure 90 mm[Hg] [employer] PA-C Work Phone: [facility] 10-26-2024 08:30-0400 Heart rate 93 /min [employer] PA-C Work Phone: [facility] 10-26-2024 08:30-0400 Respiratory rate 18 /min [employer] PA-C Work Phone: [facility] 10-26-2024 08:30-0400 SaO2% (BldA) [Mass fraction] 100 % [employer] PA-C Work Phone: [facility] 10-26-2024 08:30-0400 Systolic blood pressure 164 mm[Hg] [employer] PA-C Work Phone: [facility] 10-26-2024 05:30-0400 Body mass index (BMI) [Ratio] 29 kg/m2 [employer] PA-C Work Phone: [facility] 10-26-2024 05:30-0400 Body weight 81.5 kg [employer] PA-C Work Phone: [facility] 11-16-2023 09:14-0400 Body mass index (BMI) [Ratio] 25.21 kg/m2 Lc Marin MD Work Phone: [facility] 11-16-2023 09:14-0400 Body temperature 98.1 [degF] Lc Marin MD Work Phone: [facility] 11-16-2023 09:14-0400 Body weight 73 kg Lc Marin MD Work Phone: [facility] 11-16-2023 09:14-0400 Diastolic blood pressure 84 mm[Hg] Lc Marin MD Work Phone: [facility] 11-16-2023 09:14-0400 Heart rate 93 /min Lc Marin MD Work Phone: [facility] 11-16-2023 09:14-0400 Respiratory rate 18 /min Lc Marin MD Work Phone: [facility] 11-16-2023 09:14-0400 SaO2% (BldA) [Mass fraction] 98 % Lc Marin MD Work Phone: [facility] 11-16-2023 09:14-0400 Systolic blood pressure 138 mm[Hg] Lc Marin MD Work Phone: [facility] 10-06-2023 11:49-0400 Body height 167.64 cm PA-C [employer] PA Work Phone: [facility] 10-06-2023 11:38-0400 Body mass index (BMI) [Ratio] 26.4 kg/m2 PA-C [employer] PA Work Phone: [facility] 10-06-2023 11:38-0400 Body weight 74.44 kg PA-C [employer] PA Work Phone: [facility] 10-06-2023 11:38-0400 Diastolic blood pressure 82 mm[Hg] PA-C [employer] PA Work Phone: [facility] 10-06-2023 11:38-0400 Systolic blood pressure 122 mm[Hg] PA-C [employer] PA Work Phone: [facility] 08-12-2022 13:49-0500 Diastolic blood pressure 94 mm[Hg] Armando Paredes MD Work Phone: [facility] 08-12-2022 13:49-0500 Systolic blood pressure 140 mm[Hg] Armando Paredes MD Work Phone: [facility] 08-12-2022 13:42-0500 Body height 170.2 cm Armando Paredes MD Work Phone: [facility] 08-12-2022 13:42-0500 Body weight 70.67 kg Armando Paredes MD Work Phone: [facility] 08-12-2022 13:42-0500 Heart rate 74 /min Armando Paredes MD Work Phone: [facility] 08-12-2022 13:42-0500 SaO2% (BldA) [Mass fraction] 97 % Armando Paredes MD Work Phone: [facility] 11-30-2021 09:33-0400 Body temperature 97.81 [degF] Latoya Clement PA-C Work Phone: [facility] 11-30-2021 09:33-0400 Body weight 66.95 kg Latoyaagata Ariasy PA-C Work Phone: [facility] 11-30-2021 09:33-0400 Diastolic blood pressure 68 mm[Hg] Latoya Athy PA-C Work Phone: [facility] 11-30-2021 09:33-0400 Heart rate 80 /min Latoya Hugoy PA-C Work Phone: [facility] 11-30-2021 09:33-0400 Respiratory rate 16 /min Latoyaagata Ariasy PA-C Work Phone: [facility] 11-30-2021 09:33-0400 SaO2% (BldA) [Mass fraction] 96 % Latoyaagata Ariasy PA-C Work Phone: [facility] 11-30-2021 09:33-0400 Systolic blood pressure 120 mm[Hg] Latoya Ariasy PA-C Work Phone: [facility] 11-24-2021 11:00-0400 Body temperature 97.81 [degF] Palak Velazco APRN.MOTORMAN/WOMAN Work Phone: [facility] 11-24-2021 11:00-0400 Body weight 68.04 kg Palak Velazco APRN.MOTORMAN/WOMAN Work Phone: [facility] 11-24-2021 11:00-0400 Diastolic blood pressure 74 mm[Hg] Palak Velazco APRN.MOTORMAN/WOMAN Work Phone: [facility] 11-24-2021 11:00-0400 Heart rate 104 /min Palak Velazco APRN.MOTORMAN/WOMAN Work Phone: [facility] 11-24-2021 11:00-0400 Respiratory rate 18 /min Palak Velazco APRN.MOTORMAN/WOMAN Work Phone: [facility] 11-24-2021 11:00-0400 SaO2% (BldA) [Mass fraction] 98 % Palak Velazco APRN.MOTORMAN/WOMAN Work Phone: [facility] 11-24-2021 11:00-0400 Systolic blood pressure 126 mm[Hg] Palak Velazco APRN.MOTORMAN/WOMAN Work Phone: [facility] 11-07-2021 17:16-0400 Body height 167.64 cm PA-C [employer] PA Work Phone: [facility] 11-07-2021 17:16-0400 Body mass index (BMI) [Ratio] 23.8 kg/m2 PA-C [employer] PA Work Phone: [facility] Work Phone: 11-07-2021 17:16-0400 Body temperature 97.5 [degF] PA-C [employer] PA Work Phone: [facility] Work Phone: 11-07-2021 17:16-0400 Body weight 67.13 kg PA-C [employer] PA Work Phone: [facility] Work Phone: 11-07-2021 17:16-0400 Diastolic blood pressure 98 mm[Hg] PA-C [employer] PA Work Phone: [facility] Work Phone: 11-07-2021 17:16-0400 Heart rate 86 /min PA-C [employer] PA Work Phone: [facility] Work Phone: 11-07-2021 17:16-0400 Respiratory rate 16 /min PA-C [employer] Work Phone: [facility] Work Phone: 11-07-2021 17:16-0400 SaO2% (BldA) [Mass fraction] 99 % PA-C [employer] Work Phone: [facility] Work Phone: 11-07-2021 17:16-0400 Systolic blood pressure 166 mm[Hg] PA-C [employer] Work Phone: [facility] Work Phone: 08-24-2021 12:29-0400 Body height 167.64 cm PA-C [employer] PA Work Phone: [facility] Work Phone: 08-24-2021 12:29-0400 Body mass index (BMI) [Ratio] 24.3 kg/m2 PA-C [employer] PA Work Phone: [facility] Work Phone: 08-24-2021 12:29-0400 Body temperature 97.2 [degF] PA-C [employer] PA Work Phone: [facility] Work Phone: 08-24-2021 12:29-0400 Body weight 68.49 kg PA-C [employer] PA Work Phone: [facility] Work Phone: 08-24-2021 12:29-0400 Diastolic blood pressure 96 mm[Hg] PA-C [employer] PA Work Phone: [facility] Work Phone: 08-24-2021 12:29-0400 Heart rate 93 /min PA-C [employer] PA Work Phone: [facility] Work Phone: 08-24-2021 12:29-0400 Respiratory rate 16 /min PA-C [employer]ivid[employer] [place] PA Work Phone: [facility] Work Phone: 08-24-2021 12:29-0400 SaO2% (BldA) [Mass fraction] 98 % PA-C [employer] PA Work Phone: [facility] Work Phone: 08-24-2021 12:29-0400 Systolic blood pressure 134 mm[Hg] PA-C [employer] [place] PA Work Phone: [facility] Work Phone: 11-17-2015 12:50-0400 BMI (Body Mass Index) 25.53 kg/m2 Brook Vasquez RN [facility] Work Phone: 11-17-2015 12:50-0400 Body [...] Type Care Provider Facility Start: 12-05-2024 ambulatory [facility] Facility: [facility] Start: 12-03-2024 ambulatory [facility] Facility: [facility] Start: 11-30-2024 End: 11-30-[address] Anay Lugo MD -[facility] Work Phone: Start: 11-30-2024 End: 11-30-2024 ambulatory Natividad COMBS-C Work Phone: [facility] Work Phone: Start: 11-27-2024 Non-patient / Non-visit [facility]. Nicole COLLINS -[facility] Start: 11-27-2024 End: 11-27-2024 ambulatory Natividad Yee PA-C Work Phone: -Cardiovascular Services Start: 11-27-2024 End: 11-27-[address] Kala Solares MD -Cardiovascular Services Work Phone: Start: 11-26-2024 End: 11-27-2024 ambulatory Natividad Yee PA-C Work Phone: -Outpatient Breast Imaging Start: 11-26-2024 End: 11-26-[address] Kala Solares MD -Outpatient Breast Imaging Work Phone: Start: 11-26-2024 End: 11-26-2024 ambulatory Kala Solares Facility:[facility] Start: 11-05-2024 End: 11-05-2024 Emergency department patient visit Natividad Yee PA-C Work Phone: -Emergency Department Work Phone: Start: 10-31-2024 End: 10-31-2024 Emergency department patient visit Natividad Yee PA-C Work Phone: -Emergency Department Work Phone: Start: 10-26-2024 End: 10-26-2024 Emergency department patient visit Natividad Yee PA-C Work Phone: -Emergency Department Work Phone: Start: 09-06-2024 End: 09-06-2024 ambulatory Natividad Yee PA-C Work Phone: [facility] Work Phone: Start: 09-06-2024 End: 09-06-2024 Patient encounter procedure Elinor Aguilar NP-C -Laboratory, Specimen Work Phone: Start: 09-06-2024 End: 09-06-2024 ambulatory Elinor Aguilar NP Facility:[facility] Start: 03-15-2024 ambulatory [facility] Start: 11-16-2023 End: 11-16-2023 ambulatory NATIVIDAD YEE Facility:[facility] Start: 11-16-2023 End: 11-16-2023 Patient encounter procedure Lc Marin MD Work Phone: [facility] Comment on above: Paronychia of great toe of right foot (Primary Dx); Pediculosis capitis Start: 10-06-2023 End: 10-06-2023 ambulatory JANNETH COMBS Work Phone: [facility] Work Phone: Start: 10-06-2023 End: 10-06-2023 Patient encounter procedure JANNETH COMBS Work Phone: [facility]-Laboratory, Specimen Work Phone: Start: 10-06-2023 End: 10-06-2023 Patient encounter procedure JANNETH COMBS Work Phone: [facility] Work Phone: Start: 03-22-2023 End: 03-22-2023 ambulatory [facility] Work Phone: Start: 03-22-2023 End: 03-22-2023 Patient encounter procedure [facility], [place] Work Phone: Start: 11-18-2022 End: 11-18-2022 ambulatory [facility] Work Phone: Start: 11-18-2022 End: 11-18-2022 Discharged Recurring [facility]-Physical Therapy Work Phone: Start: 09-30-2022 Registered Recurring JANNETH COMBS Work Phone: [facility]-Physical Therapy Start: 09-27-2022 End: 09-27-2022 ambulatory JANNETH COMBS Work Phone: [facility] Work Phone: Start: 09-27-2022 End: 09-27-2022 Patient encounter procedure PA-Zeke Yee PA Work Phone: [facility]-Outpatient Breast Imaging Start: 08-19-2022 Registered Recurring JANNETH COMBS Work Phone: [facility]-Physical Therapy Start: 08-17-2022 End: 08-17-2022 ambulatory PA-Zeke Yee PA Work Phone: [facility] Work Phone: Start: 08-17-2022 End: 08-17-2022 Patient encounter procedure GARRET-Zeke Yee PA Work Phone: [facility]-Laboratory Start: 08-13-2022 ambulatory Armando pham MD Work Phone: Neurology Comment on above: pain psychology Start: 08-13-2022 E-mail encounter fro m caregiver Armando Paredes MD Work Phone: [facility] Start: 08-12-2022 End: 08-12-2022 Patient encounter [...] Neur Stro (Max Weight: 300) Work Phone: [facility] Start: 08-05-2022 Telephone encounter Armando Paredes MD Work Phone: Neurology Comment on above: Forms ([employer] ) Start: 07-26-2022 Registered Recurring JANNETH COMBS Work Phone: [facility]-Physical Therapy Start: 07-20-2022 End: 07-20-2022 Orders Only Priscila Umaña Work Phone: Neurology Comment on above: Chronic left-sided l umbar radiculopathy (Primary Dx) Start: 07-20-2022 End: 07-20-2022 Patient encounter procedure PA-Zeke Yee PA Work Phone: [facility]-Laboratory Start: 06-21-2022 Non-patient / Non-visit PA-C Dariela Yee PA Work Phone: [facility] Start: 06-21-2022 End: 06-21-2022 ambulatory PA-C Natividad Yee PA Work Phone: [facility] Work Phone: Start: 06-21-2022 End: 06-21-2022 Patient encounter procedure PA-C Natividad Yee PA Work Phone: [facility]-Cardiovascular Services Start: 11-30-2021 Telephone encounter Latoya Salvatore Ath y PA-C Work Phone: [facility] Comment on above: Prescription Request to Different Pharmacy Start: 11-30-2021 End: 11-30-2021 Patient encounter procedure Latoya Salvatore Clement PA-C Work Phone: [facility] Comment on above: Hordeolum externum o f right upper eyelid (Primary Dx) Start: 11-24-2021 Telephone encounter No Pcp [facility] Comment on above: Results Start: 11-24-2021 End: 11-24-2021 Patient encounter procedure Palak Velazco APRN.MOTORMAN/WOMAN Work Phone: [facility] Comment on above: Close exposure to [place] VID-19 virus (Primary Dx) Start: 11-09-2021 End: 11-09-2021 Patient encounter procedure PA-C Natividad Yee PA Work Phone: [facility] Start: 11-07-2021 End: 11-07-2021 Emergency department patient visit PA-C Natividad Yee PA Work Phone: [facility]-Emergency Department Start: 08-24-2021 Non-patient / Non-visit PA-C K yariel Yee PA Work Phone: [facility] Start: 08-24-2021 End: 08-24-2021 Emergency department patient visit PA-C Natividad Yee PA Work Phone: [facility]-Emergency Department Procedures Date Procedure Procedure Detail Performing Clinician Start: 11-27-2024 CT [facility] of co [facility]onary [facility] Work [facility]: Start: 11-26-2024 Bilateral mammography K yariel [place] PA-C Work Phone: Start: 11-26-2024 Ultrasonography of breast [facility] [employer] Work Phone: Start: 11-05-2024 X-ray of chest, PA a nd lateral views [facility] PA-C Work Phone: Start: 11-05-2024 D-dimer assay, quantitative [facility] [employer] Work Phone: Comment on above: NORMAL D-Dimer level (<0.50) indicates no DVT or PE. Start: 11-05-2024 Estimated creatinine clearance [facility] PA-C Work Phone: Start: 10-31-2024 Methadone measuremen t, urine [facility] [employer] Work Phone: Start: 10-31-2024 Estimated creatinine clearance [facility] PA-C Work Phone: Start: 10-26-2024 Urnls dip stick/tabl et reagent auto microscopy [facility] PA-C Work Phone: Start: 10-26-2024 Estimated creatinine clearance [facility] PA-C Work Phone: Start: 10-06-2023 [...] Vasquez RN Start: 04-19-2007 Colonoscopy Palak Velazco APRN.MOTORMAN/WOMAN Work Phone: Plan of Treatment Date Care Activity Detail Author Start: 11-05-2024 [facility] Start: 11-05-2024 [facility] Start: 10-31-2024 [facility] Start: 10-26-2024 [facility] Start: 10-26-2024 [facility] Start: 02-05-2024 Influenza vaccination Influenz a Vaccine (Season Ended) [facility] Start: 08-06-2023 DIABETES SCREEN DIABETES SCREEN [facility] Start: 08-06-2023 Diabetes Screening Diabetes Screenin g [facility] Start: 06-06-2023 Behavioral Health Screening Behavioral Health Screening [facility] Start: 2023 Shingrix Vaccine (1 of 2) Shingrix Vaccine (1 of 2) [facility] Start: 02-04-2023 Covid-19 Vaccine ( season) Covid-19 Vaccine ( season) [facility] Start: 08-17-2022 Procedure [facility] Start: 06-06-2022 DEPRESSION ASSESSMENT DEPRESSION ASS ESSMENT [facility] Start: 02-04-2022 Influenza vaccination C [facility] Start: 11-24-2021 End: 12-08-2021 Influenza virus A and B RNA and SARS-CoV-2 (COVID-19) N gene panel - Respiratory specimen by KEYSHA with probe detection [facility] Work Phone: Comment on above: Expected: 11/24/2021 , Expires: 12/08/2021 Start: 2018 COLOGUARD (FIT-DNA) COLOGUARD (FIT-D NA) [facility] Start: 2018 Colonoscopy COLONOSCOPY [facility] Start: 2018 COLORECTAL CANCER SCREENING COLORECTAL CANCER SCREENING [facility] Start: [address] COLONOGRAPHY [facility] Start: 2018 FECAL OCCULT BLOOD FECAL OCCULT BLOO D [facility] Start: 2018 Lipid panel Lipid Screening [facility] Start: 2018 LIPID SCREEN LIPID SCREEN [facility] Start: 2018 Screening for malign ant neoplasm of colon [facility] Start: 2018 SIGMOIDOSCOPY SIGMOIDOSCOPY [facility] Start: 02-10-2017 End: 02-10-2017 Xtrnl mobile cv telemetry w/i&report 30 days 30 Day Holter Monitor [employer] Work Phone: Start: 11-17-2015 End: 11-17-2015 *CMP Complete Metabolic Panel *CMP Complete Metabolic Panel [employer] Work Phone: Start: 11-17-2015 End: 11-17-2015 Hemoglobin A1c/Hemoglobin.total mass fraction (Bld) *HgA1C [employer] Work Phone: Start: 11-17-2015 End: 11-17-2015 Lipid 1996 panel *Lipid Profile [employer] Work Phone: Start: 11-17-2015 End: 11-17-2015 Mammogram, screening Mammogram, Screening, both breasts [employer] Work Phone: Start: 11-17-2015 End: 11-17-2015 T3 free mass conc *T3-Free [employer] Work Phone: Start: 11-17-2015 End: 11-17-2015 T4 free mass conc *T4 free [employer] Work Phone: Start: 11-17-2015 End: 11-17-2015 Thyroglobulin mass conc *ATAB - Thyroglobulin Antibody [facility] Work Phone: Start: 11-17-2015 End: 11-17-2015 Thyrotropin Qn *TSH [facility] Work Phone: Start: 2013 Mammography MAMMOGRAM [facility] Start: 2013 Screening for malign ant neoplasm of breast Mammogram Screening [facility] Start: 2003 HPV TESTING HPV TESTING [facility] Start: 1994 PAP TESTING PAP TESTING [facility] Start: 1994 Screening for malign ant neoplasm of cervix Cervical Cancer Screening [facility] Start: 1992 Hepatitis B Vaccine (1 of 3 - 19+ 3-dose series) Hepatitis B Vaccine (1 of 3 - 19+ 3-dose series) [facility] Start: 1992 Urine microalbumin profile [facility] Start: 1991 HEPATITIS C SCREENING HEPATITIS C [facility] Start: 1991 Hepatitis C screening Hepatitis C [facility] Start: 1991 HIV SCREENING HIV SCREENING [facility] Start: 1991 HIV screening HIV Screening [facility] Start: 1985 Adult depression screening assessment DEPRESSION SCREENING [facility] Start: 1978 COVID-19 VACCINE (#1) COVID-19 VACCI NE (#1) [facility] Start: 1973 COVID-19 VACCINE (#1) COVID-19 VACCI NE (#1) [facility] Start: 1973 HEPATITIS B (1 of 3 - 3-dose series) HEPATITIS B (1 of 3 - 3-dose series) [facility] End: 07-20-2023 EMG(NEURO/NI) EMG(NEURO/NI) EMG Routine Chronic left-sided lumbar radiculopathy 1 Occurrences starting 07/20/2022 until 07/20/2023 [facility] Work Phone: Comment on above: 1 Occurrences starti ng 07/20/2022 until 07/20/2023 Patient Education [facility] Work Phone: Patient referral [facility] Work Phone: [facility] Payers Date Payer Category Payer Unknown [id number] 2024 Unknown [id number] 2024 Self-pay [id number] 2022 Unknown [id number] 2021 Unknown [id number] 2019 Unknown [employer] PPO [id number] 2019-Present [phone] [address] [place] [address] PPO [id number] 2019 Unknown [id number] 1973 Unknown [id number] Unknown [id number] Unknown [id number] Unknown [id number] Unknown [id number] Unknown [id number] [id number] Unknown [id number] [id number] Unknown [id number] [id number] Unknown [id number] [id number] Unknown [id number] [id number] Unknown [id number] [id number] Unknown [id number] Social History Date Type Detail Facility [facility] Work Phone: Start: 08-24-2021 End: 11-07-2021 Tobacco smoking status WIIS Unknown if ever smoked [facility] Start: 11-27-2019 Non-smoker [facility] Start: 1975 Sex Assigned At Female [facility] Start: 11-12-2016 End: 11-30-2024 Tobacco smoking status NHIS Never smoked tobacco [facility] Work Phone: History of tobacco use Cigarette Smoker [facility] Work Phone: Start: 11-12-2016 End: 11-16-2023 Tobacco use and exposure Smokeless tobacco non-user [facility] Work Phone: Start: 11-24-2021 End: 11-16-2023 Alcohol intake Current non-drinker of alcohol (finding) [facility] Start: 11-14-2021 End: 11-24-2021 Exposure to SARS-CoV-2 (event) Yes [facility] Work Phone: Start: 11-20-2021 End: 11-30-2021 Exposure to SARS-CoV-2 (event) Not sure [facility] Work Phone: Start: 08-12-2022 End: 11-16-2023 History of Social function [facility] Start: 08-12-2022 End: 11-16-2023 Tobacco use panel [facility] National Score (1-10 0), lower number is lower risk 71 [facility] Start: 07-22-2020 Gender identity Identifies as female gender (finding) [facility] Start: 07-22-2020 Sexual orientation Heterosexual (fin ding) [facility] Start: 09-11-2024 Sex Female (finding) [facility] Mental Status Date Assessment Result Facility 11-05-2024 Cognitive function Level Of Cons ciousness Awake;Alert;Appropriate;Follow s Commands [facility] Work Phone: 10-31-2024 Cognitive function Level Of Cons ciousness Awake;Alert;Appropriate;Follow s Commands [facility] Work Phone: Clinical Notes 11-24-2021 to 11-27-2024 Lc Marin MD - 11/16/2023 9:40 AM EDT Note Date & Type Note Facility 11-27-2024 Radiology Diagnostic study note [facility] Imaging Services [address] [place] [address] Cardiac Only MR#: [id number] Acct: [id number] Name: VERONICA UMAÑA Rep #: [id number] : 1975 F 49 From: Toñito Gonsalez MD PCP: Dr. Kala Solares MD Status: REG CLI Study:Limited Chest CT Cardiac Only Date of E xam: 11/27/24 Exam# [id number] Ordering Dr: Ahsan Solares MD PROCEDURE: LIMITED [...] significant coronary artery calcification seen. Reading Location: [id number] CC: Dr. Kala Solares MD ~ Steam Train Driver: Signed [facility] 11-26-2024 Radiology Diagnostic study note [facility] Imaging Services [address] [place], [place] [address] Breast Limited Unilateral MR#: [id number] Acct: [id number] Name: VERONICA UMAÑA Rep #: [id number] : 1975 F 49 From: Jose Angel Villalobos DO PCP: Dr. Kala Solares MD Status: REG CLI Study:Breast Limited Unilateral Date of Exam: 11/26/24 Exam# [id number] Ordering Dr: Ahsan Solares MD PROCEDURE: BREAST [...] SUSPICIOUS ABNORMALITY. RECOMMENDATION: Biopsy Recommended Reading Location: [id number] CC: Dr. Kala Solares MD ~ Steam Train Driver: Signed [facility] 11-05-2024 Radiology Diagnostic study note [facility] Imaging Services [address] [place] [address] [id number] Chest PA and Lateral MR#: [id number] Acct: [id number] Name: VERONICA UMAÑA Rep #: [id number] : 1975 F 49 From: Victoria Becker MD PCP: Care Physician,No Primary Status: REG ER Study:Chest PA and Lateral Date of Exam: 11/05/24 Exam# [id number] Ordering Dr: Victor Hugo Mota DO PROCEDURE: CHEST PA AND LATERAL 11/05/2024 REASON FOR EXAM: CHEST PAIN TECHNIQUE: Frontal and lateral views of the chest. COMPARISON: None FINDINGS: Hardware: None Heart: The heart size is normal. Mediastinum: The mediastinal contour is unremarkable. Lungs: The lungs are clear. Bones: The bones are unremarkable. RAD/Chest PA and Lateral IMPRESSION: No acute cardiopulmonary abnormality. Reading Location: [id number] CC: Dr. Victor Hugo Suh DO; No Primary Care Physician ~ Steam Train Driver: Signed [facility] 11-05-2024 Hospital Discharg e instructions Additional Instructions [...] during the afternoon if needed for anxiety. [facility] Work Phone: 10-31-2024 Discharge summary [facility] 11-16-2023 Note HNO ID: [id number] Author: LC MARIN MD Service: ? Author Type: Physician Type: Progress Notes Filed: 11/16/2023 10:40 Note Text: Patient presents with: Eye Problem: Right eye swelling and right big toe pain-from pedicure yesterday HPI: Skin Lesion: Location: right great toe medial border Duration: had a hang nail removed at the director [employer] yesterday Pruritis/Pain: tender Drainage/blister/pustule/ulceration: redness, swelling, drainage [...] live lice or nits. Lc Marin MD [facility] 11-16-2023 History of Present illness Narrative Formatting of this note is different fro m the original. Patient presents with: Eye Problem: Right eye swelling and right big toe pain-from pedicure yesterday HPI: Skin Lesion: Location: right great toe medial border Duration: had a hang nail removed at the [employer] yesterday Pruritis/Pain: tender Drainage/blister/pustule/ulceration: redness, swelling, drainage [...] Lc Marin MD documented in this encounter [facility] 02-03-2023 Discharge summary Note Date/Time February 03, 2023 9:43am [facility] [address] [place] [address] / REHABILITATION SERVICES DISCHARGE SUMMARY MR#: [id number] Acct: [id number] Name: VERONICA UMAÑA Rep #: [id number] : 1975 47 From: Jessie GONCALVES T Referring Dr.: Dr. Meg Sadler MD Status: REG RCR Insurance: [employer] Patient Information Patient Information: VERONICA [...] <Electronically signed by Jessie Li DPT> 02/03/23 0974 CC: JANNETH Yee; Dr. Meg Sadler MD; BRANDY SANTOS ~ ELR Signed [facility] Work Phone: 1(309) 403-677707-05-2023 Discharge summary Author Margaret Oliva [facility] December 08, 2022 11:10am Note Date/Time December 08, 2022 11:11 am [facility] [address] [facility] [place] [address] / REHABILITATION SERVICES DISCHARGE SUMMARY MR#: [id number] Acct: [id number] Name: VERONICA UMAÑA Rep #: [id number] : 1975 47 From: Margaret Conrad Referring Dr.: Dr. Meg Sadler MD Status: REG RCR Insurance: [employer] Patient Information Patient Information: VERONICA [...] Meg Sadler MD; BRANDY SANTOS ~ Signed [facility] Work Phone: 1(468) 444-816303-09-2023 Instructions* Patient Instructions* Armando Paredes MD - 08/12/2022 2:51 PM EST Raul Hanson, healing back pain Use this link to send us a copy of your images from your home computer: [email or web address] To schedule an appointment with me, please call my executive legal secretary Lynn at [phone]. documented in this encounterW[facility]03-09-[facility]23 History of Present illness Narrative* Armando Paredes MD - 08/12/2022 2:01 PM EST HPI: This is Ms. Veronica Umaña a 47 year old female from who presents to the [facility] neurology department with a chief complaint of Referring provider: Priscila Uamña, [place] [address] [place] [address] There is a history of Yesica danlos [...] tablet daily 0 GI-Revive 225 gram Powder ([employer]) Take 1 tablespoons twice daily (1 tablespoon [...] Rogers, et al. 2017 Guidelines of the [place] Thyroid Association for the Diagnosis and Management of Thyroid Disease during and the . Thyroid, 2017:27:3:315-389. Free T4 Date Value Ref Range Status 08/05/2020 1.3 0.9 - 1.7 ng/dL Final Hemoglobin A1C Date Value Ref Range Status 08/05/2020 5.5 4.3 - 5.6 % Final Comment: [place] Diabetes Association guidelines indicate that patients with [...] to the appropriate provider. documented in this encounterWv[facility]03-03-2023 Miscellaneous Notes* Telephone Encounter - Lynn Jennifer Emg - 08/06/2022 2:12 PM EST Results from EMG performed on 08/05/22 were faxed to [facility] at fax number [phone] on 08/06/22. Fax confirmation received. documented in this encounterW[facility]03-02-2023 History of Present illness Narrative* Lori [...] Patiño NCST Lori Patel DO Staff Neurologist [facility] [place] documented in this encounterWvumedicine [facility]03-02-2023 Miscellaneous Notes* Telephone Encounter - Veronica Zapata LPN - 08/05/2022 1:27 PM EST [employer] sent over a denial of coverage for out of network provider, spoke to patient andshe was made aware and want to keep appointment anyways. Forms sent for scanning in chart. documented in this encounterWvumedicine [facility]06-27-2022 Miscellaneous Notes* Telephone Encounter - Latoya Clement PA-C - 11/30/2021 11:52 AM EDT [facility] to [facility]. * Telephone Encounter - Maureen Martinez RN - 11/30/2021 11:23 AM EDT [facility] and is calling to ask if [facility] Racquel in [facility] would send [facility] and Bacitracin opth.ointment scripts [facility] [place]? She states she may have accidentally told Latoya to send it to [facility] but does not use that pharmacy anymore. Thank you. Maureen Martinez RN documented in this encounterWvumedicine [facility] Hospital06-27-2022 History of Present illness Narrative* Latoya Clement PA-C - 11/30/2021 10:10 AM EDT Images from the original note were not included. This note was created using [employer]. Subjective Veronica Umaña is a 46 year [...] days. 15 capsule0 GI-Revive 225 gram Powder ([employer]) Take 1 tablespoons twice daily (1 tablespoon [...] D&C (MISSED AB 1ST TRIMESTER) 01/08/14 in [place] PAST SURGICAL HISTORY OF lap left shoulder [...] agreeable. Latoya Clement PA-C documented in this encounterWvumedicine [facility] Hospital06-22-2022 Miscellaneous Notes* Telephone Encounter - Lauren Aparicio - 11/25/2021 9:47 AM EDT faxed. Lauren Aparicio * Telephone Encounter - Elinor Jones LPN - 11/24/2021 11:29 AM EDT Pt reports she was in [facility] this morning to be seen and tested for Covid. Pt is requesting that results be faxed to Dr. Layne when they become available. Elinor Jones LPN documented in this encounterWvumedicine [facility] Hospital06-21-2022 History of Present illness Narrative* Palak [...] D&C (MISSED AB 1ST TRIMESTER) 01/08/14 in [place] PAST SURGICAL HISTORY OF lap left shoulder torn labrum repair TONSILLECTOMY PRIMARY/SECONDARY <AGE 10 2004 Tonsillectomy ALLERGIES Cipro [Ciprofloxacin], Cymbalta [Duloxetine], Levoquin [Levofloxacin], Paba [P-Aminobenzoic Acid], Sulfa (Sulfonamide Antibiotics), and Z Pack [Azithromycin] MEDICATIONS Magnesium Citrate 150mg 90 ct[address] (Pure Encapsulations) Take 3 capsules daily. GI-Revive 225 gram Powder ([employer]) Take 1 tablespoons twice daily (1 tablespoon [...] plan. 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 Make sure you are taking your antihypertensives especially your metoprolol. Print Language: Singaporean Disposition Disposition: Home, Self Care What to do if you have Problems For any increased pain, shortness of breath, bleeding, nausea or vomiting, chestpain, or any unexpected problems, contact your Primary Care Provider. Call [facility] ([phone]) or report to the closest Emergency Room. Call 911 if necessary. 10/31/24 1200 <Electronically signed by Jose Alexis MD> Cosigner Signature (if applicable): CC: RAYRAY Aguilar ~ Signed [facility] Work Phone: Evaluation noteNo assessment information available [facility] Work Phone: Evaluation note* Diagnosis Close exposure to COVID-19 virus- Primary documented in this encounter [facility]* Diagnosis Hordeolum externum of right upper eyelid- Primary Hordeolum externum [facility]* Diagnosis Chronic left-sided lumbar radiculopathy- Primary documented in this encounter [facility]* Diagnosis Pain in left leg- Primary Chronic left-sided lumbar radiculopathy documented in this encounter [facility]* Diagnosis Chronic left-sided low back pain with left-sided sciatica- Primary documented in this encounter [facility]* Diagnosis Onset Date Resolution Status Inclusion cyst of vulva none active Vaginitis noneactive [facility] Work Phone: Evaluation note* Diagnosis Paronychia of great toe of right foot- Primary Onychia and paronychia of toe Pediculosis capitis Pediculus capitis (head louse) [facility] Additional Instructions Follow-up with your primary care provider. Make sure you are taking your antihypertensives especially your metoprolol.[facility] Work Phone: Reason for referral (narrative)* Outpatient Procedure (Routine) - Pending Review Specialty Diagnoses / Procedures Referred By Mariaelena conrad Ref[facility] Diagnoses Chronic left-sided lumbar radiculopathy Procedures EMG(NEURO/NI) NERVE CONDUCTION STUDIES 9-10 STUDIES Priscila Umaña [address] [place] [address] Neurological [place] [address] [place] [address] Referral ID Status Reason Start Date Expiration Date Visits Requested Visits Authorized [id number] Pending Review Auto-Generat ed Referral 07/20/2022 07/20/2023 1 1 ER [facility] for referral (narrative)No reason for referral information availableWKeenan Private Hospital Work Phone: Summary Purpose Family History [...] Yes August 24, 2021 2:50pm Power of Basket Patcher No August 24 2:50pm Advance Directive Response Recorded Date/ Time Living Will Yes November 07, 2021 5 :40pm Power of Basket Patcher Yes November 07, 2021 5:40pm Advance Directive Response Recorded Date/ Time Living Will Yes November 07, 2021 4 :40pm Power of Basket Patcher Yes November 07, 2021 4:40pm Advance Directive Response Recorded Date/ Time Do you have a Healthcare Power of Basket Patcher? No October 31, 2024 7:27am Do you have a Healthcare Power of Basket Patcher? No October 26, 2024 5:30am Advance Directive Response Recorded Date/ Time Do you have a Healthcare Power of Basket Patcher? No October 31, 2024 7:27am Do you have a Healthcare Power of Basket Patcher? No November 05, 2024 3:35pm Do you have a Healthcare Power of Basket Patcher? No October 26, 2024 5:30am Chief Complaint [...] DATE CREATED AUTHOR AUTHOR'S ORGANIZ ATION 11/17/2023 [facility] DATE CREATED AUTHOR AUTHOR'S ORGANIZ ATION 03/17/2024 [facility] DATE CREATED AUTHOR AUTHOR'S ORGANIZ ATION [facility] Goals (unrecognized section and content) Goals [...] or prosecute any alcohol or drug abuse patient.[facility] HospitalIn the event this information is protected by the Federal Confidentiality of Alcohol and Drug Abuse Patient Records regulations: The Federal rules restrict any use of the information to criminally investigate or prosecute any alcohol or drug abuse patient.[facility] HospitalIn the event this information is protected by the Federal Confidentiality of Alcohol and Drug Abuse Patient Records regulations: The Federal rules restrict any use of the information to criminally investigate or prosecute any alcohol or drug abuse patient.[facility] HospitalIn the event this information is protected by the Federal Confidentiality of Alcohol and Drug Abuse Patient Records regulations: The Federal rules restrict any use of the information to criminally investigate or prosecute any alcohol or drug abuse patient.[facility] HospitalIn the event this information is protected by the Federal Confidentiality of Alcohol and Drug Abuse Patient Records regulations: The Federal rules restrict any use of the information to criminally investigate or prosecute any alcohol or drug abuse patient.[facility] HospitalIn the event this information is protected by the Federal Confidentiality of Alcohol and Drug Abuse Patient Records regulations: The Federal rules restrict any use of the information to criminally investigate or prosecute any alcohol or drug abuse patient.[facility] HospitalIn the event this information is protected by the Federal Confidentiality of Alcohol and Drug Abuse Patient Records regulations: The Federal rules restrict any use of the information to criminally investigate or prosecute any alcohol or drug abuse patient.[facility] HospitalIn the event this information is protected by the Federal Confidentiality of Alcohol and Drug Abuse Patient Records regulations: The Federal rules restrict any use of the information to criminally investigate or prosecute any alcohol or drug abuse patient.[facility] HospitalIn the event this information is protected by the Federal Confidentiality of Alcohol and Drug Abuse Patient Records regulations: The Federal rules restrict any use of the information to criminally investigate or prosecute any alcohol or drug abuse patient.[facility] HospitalIn the event this information is protected by the Federal Confidentiality of Alcohol and Drug Abuse Patient Records regulations: The Federal rules restrict any use of the information to criminally investigate or prosecute any alcohol or drug abuse patient.[facility] HospitalIn the event this information is protected by the Federal Confidentiality of Alcohol and Drug Abuse Patient Records regulations: The Federal rules restrict any use of the information to criminally investigate or prosecute any alcohol or drug abuse patient.[facility] Reason for Visit (unrecogniz ed section and content) Reason Comments Eye Problem right eye swelling a nd pain x last night Specialty Diagnoses / Procedures Referred By Mariaelena t Referred To Contact Family Practice / [facility] Diagnoses sore throat, fever, fatigue, chills and bodyaches Procedures OFFICE/OUTPATIENT ESTABLISHED MOD MDM 30-39 MIN EST SAME DAY Self Palak Velazco APRN.MOTORMAN/WOMAN [address] [place] [address] Referral ID Status Reason Start Date Expiration Date Visits Re quested Visits Authorized [id number] Closed 06/06/2021 06/05/2022 2 2 Reason Comments Cough Pt reported +Covid e xposure family member, SOB, denied chest pain Diarrhea Pt denied blood, muc us Nausea, sore throat pain rated 5 x 4 days Referral ID Status Reason Start Date Expiration Date Visits Re quested Visits Authorized [id number] Closed 06/06/2021 06/05/2022 1 1 Reason Comments Results Reason Comments Prescription Request to Different Pharma [facility] Reason Comments Forms [employer] Reason Onset Date Comments EMG 08/05/2022 Specialty Diagnoses / Procedures Referred By Mariaelena conrad Referred To Contact Neurology / NEUROMUSCULAR Diagnoses Muscle weakness MUSCLE WEAKNESS Procedures OFFICE/OUTPATIENT NEW MODERATE MDM 45-59 MINUTES NEW NI NEUR[facility] PAIN Priscila Umaña [address] [place] [address] Armando Paredes MD [phone] [id number] Referral ID Status Reason Start Date Expiration Date V isits Requested Visits Authorized [id number] Authorized 07/22/2022 07/22/2023 20 20 Reason Comments Faxed EMG Results Reason Comments New Patient Weakness Pain, weakness, burn ing, numbness tingling pinpricks constant since 2009, muscle atrophy, progressively worsening Reason Comments Eye Problem Right eye swelling a nd right big toe pain-from pedicure yesterday Care Teams (unrecognized sec tion and content) [employer] Supervisor Relationship Specialty Start Date End Date Natividad Yee PA-C PCP - General Family Practice 10/21/16 NakiaSheelaGARRET Lima-C Referring Family Practice 01/30/20 [employer] Supervisor Relationship Specialty Start Date End Date Natividad [...] Dr. Priscila Umaña MD Attending Provider Active [employer] Supervisor Relationship Specialty Start Date End Date Natividad Yee GARRET Ferro-C PCP - General Family Medicine 10/21/16 Natividad Yee PA-C Referring Family Medicine 01/30/20 Team Status: Active Member Role Status aMmi COMBS PA-C Primary Care Provider Active Dr. [...] MD Attending Provider, Referring Pr ovider Active [employer] Supervisor Relationship Specialty Start Date End Date Sheela Yeeyevgeniy Ferro PA-C PCP - General Family Medicine 10/21/16 Natividad Yee PA-C Referring Family Medicine 01/30/20 [employer] Supervisor Relationship Specialty Start Date End Date Key LargoSheelayevgeniy Ferro PA-C PCP - General Family Medicine 10/21/16 Natividad Yee PA-C Referring Family Medicine 01/30/20 [employer] Supervisor Relationship Specialty Start Date End Date Nakia Natividadellen Ferro PA-C PCP - General Family Medicine 10/21/16 Natividad Yee PA-C Referring Family Medicine 01/30/20 [employer] Supervisor Relationship Specialty Start Date End Date Nakia Natividadellen Ferro PA-C PCP - General Family Medicine 10/21/16 Natividad Yee PA-C Referring Family Medicine 01/30/20 Team Status: Inactive Member Role Status [facility] JANNETH COMBS Primary Care Provider Active Dr. Gloria Layne MD Attending Provider Active Team Status: Inactive Member Role Status [facility] JANNETH COMBS Primary Care Pro vider, Attending Provider, Referring Provider Active Team Status: Inactive Member Role Status [facility] GARRET PAIanC Primary Care Provider Active DANIELLE NAVA Referring Provider Active Dr. Meg Sadler MD Attending Provider Active Team Status: Inactive Member Role Status [facility] GARRET COMBS-C Primary Care Provider, Referri ng Provider Active RAYRAY Fatima Attending Provider Active Team Status: Inactive Member Role Status [facility] GARRET COMBS-C Primary Care Provider Active RAYRAY Fatima Attending Provider, Referring Pr ovider Active [employer] Supervisor Relationship Specialty Start Date End Date Natividad Yee PA-C PCP - General Family Medicine 10/21/16 Natividad Yee PA-C Referring Family Medicine 01/30/20 Team Status: Inactive Member Role Status Dates Natividad COMBS PA-C Primary Care Provider Active Start: September 06, 2024 End: September 06, 2024 Elinor Aguilar NP, ADVERTISING WRITER-C Attending Provider Active Start: September 06, 2024 End: September 06, 2024 Elinor Aguilar NP, ADVERTISING WRITER-C Referring Provider Active Start: September 06, 2024 End: September 06, 2024 Team Status: Active Member Role Status Dates Elinor Aguilar NP, ADVERTISING WRITER-C Primary Care Provider Activ e Team Status: Inactive Member Role Status Dates Dr. Ramesh Coffey DO Emergency Provider Active Start: October 26, 2024 End: October 26, 2024 Elinor Aguilar NP, ADVERTISING WRITER-C Primary Care Provider Activ e Start: October 26, 2024 End: October 26, 2024 Team Status: Inactive Member Role Status Dates Elinor Aguilar NP, ADVERTISING WRITER-C Primary Care Provider Activ e Start: October [...] End: October 26, 2024 Elinor Aguilar NP, ADVERTISING WRITER-C Primary Care Provider Activ e Start: October [...] Inactive Member Role Status Dates Elinor Aguilar ADVERTISING WRITER, ADVERTISING WRITER-C Primary Care Provider Activ e Start: October [...] Active Start: November 26, 2024 Dr. Kala Soalres MD Attending Provider Active Start: November 26, [...] 2024 End: September 06, 2024 Elinor Aguilar ADVERTISING WRITER, ADVERTISING WRITER-C Attending Provider Active Start: September 06, 2024 End: September 06, 2024 Elinor Aguilar ADVERTISING WRITER, ADVERTISING WRITER-C Referring Provider Active Start: September 06, 2024 End: September 06, 2024 Team Status: Inactive Member Role/Relationship Status Dates Dr. Ramesh Coffey DO Attending Provider Active Start: October 26, 2024 End: October 26, 2024 Dr. Ramesh Coffey DO Emergency Provider Active Start: October 26, 2024 End: October 26, 2024 Elinor Aguilar ADVERTISING WRITER, ADVERTISING WRITER-C Primary Care Provider Activ e Start: October 26, 2024 End: October 26, 2024 Team Status: Inactive Member Role/Relationship Status Dates Elinor Aguilar ADVERTISING WRITER, ADVERTISING WRITER-C Primary Care Provider Activ e Start: October [...] 30, 2024 End: November 30, 2024 Dr. aKla Solares MD Referring Provider Active Start: November [...] BE BASED ON THE PRIMARY CLINICAL RECORDS. [facility]. provides no warranty or guarantee of the accuracy or completeness of information in this document.
== END | disposition home or self-care (01) ==
LOC: LAB 07:49
PROVIDERS: PCP Family Medicine; Referring Provider Family Medicine; Visit Provider Family Medicine
DX: I10 Essential (primary) hypertension (principal)
CPT/HCPCS: 36415; 82088; 84244

== ENCOUNTER → 2024-12-05 | Outpatient (CLI) | payer SELFPAY ==
--- NOTE | 2024-12-05 11:54 | US_ITS ---
PROCEDURE: US BREAST BIOPSY 1ST LESION 12/05/2024 REASON FOR EXAM: F, Age 49 y/o , LEFT BREAST MASS X 2 COMPARISON: Prior exam(s) dating back to . TECHNIQUE: Under direct sonographic guidance, the surgeon performed core biopsies of the lesions seen at the 1 o'clock and 3 o'clock position in the left breast. FINDINGS: ULTRASOUND: Ultrasound was targeted to the left breast . Successful core biopsies. US/US Breast Biopsy 1st Lesion IMPRESSION: Successful core biopsies. BI-RADS 0: INCOMPLETE - NEED ADDITIONAL IMAGING EVALUATION. Reading Location: [place] [id number]
--- NOTE | 2024-12-05 11:54 | US_ITS ---
PROCEDURE: US BREAST BIOPSY 1ST LESION 12/05/2024 REASON FOR EXAM: F, Age 49 y/o , LEFT BREAST MASS X 2 COMPARISON: Prior exam(s) dating back to . TECHNIQUE: Under direct sonographic guidance, the surgeon performed core biopsies of the lesions seen at the 1 o'clock and 3 o'clock position in the left breast. FINDINGS: ULTRASOUND: Ultrasound was targeted to the left breast . Successful core biopsies. US/US Breast Biopsy 1st Lesion IMPRESSION: Successful core biopsies. BI-RADS 0: INCOMPLETE - NEED ADDITIONAL IMAGING EVALUATION. Reading Location: [place] [id number]
--- NOTE | 2024-12-05 13:15 | BRBX_PTH ---
PATIENT: PATO UMAÑA LOC: OPUS U#:[id number] AGE/SX: 49/F ROOM: RE12/05/[address]: Dr. Anay Lugo MD : 1975 BED: DIS: 12/05/2024 SPEC #: [id number] RECD: 12/05/24 14:04 STATUS: CARROLL REQ #: [id number] FRANTZ: 12/05/24 13:[address]: Anay Lugo DEPT: SURGICAL PATHOLOGY RECD BY: Barrera Lovelace ENTERED: 12/05/24 14:41 SP TYPE: BREAST BX OTHR DR: Dr. Kala Solares MD Tissues: A - Left breast, NOS B - Left breast, NOS Procedures: Immunohistochemical Stains Surgery Specimen Level IV IHC Stain ADDITIONAL HEADER OPERATION: Ultrasound guided breast biopsy PRE-OP DIAGNOSIS: Left breast mass x2 TISSUE SUBMITTED: A- Left breast mass, 1o'clock, 6cm from nipple, B- Left breast mass, 3o'clock, 8cm A. Ischemic Time: Unknown Fixation Time: 16 hours, 45 minutes B. Ischemic Time: Unknown Fixation Time: 16 hours, 45 minutes MICROSCOPIC DIAGNOSIS A. Breast, left, 1:00, mass, biopsy: - Benign breast tissue - see note. Note: IHC for CK5/6 and p40 support the histologic impression. B. Breast, left, 3:00, mass, biopsy: - Benign breast tissue - see note. Note: IHC for CK5/6 and p40 support the histologic impression MICROSCOPIC DESCRIPTION Slides are reviewed. GROSS DESCRIPTION Received in 2 formalin containers labeled with the patient's name and date of . Designated as: A. Left breast 2 samples-1:00 6 cm FN are 2 fregoso-white tissue cores, 1.0 cm in length by 0.1 cm in diameter each. Entirely submitted in 1 cassette. Cold ischemic time: UnknownFormalin fixation time: 16 hours, 45 minutes B. Left breast 3:00 8 cm FN BX 2 are 2 fregoso-yellow tissue cores, 0.7 cm and 0.8 cm in length by 0.1 cm in diameter. Entirely submitted in 1 cassette. Cold ischemic time: Unknown Formalin fixation time: 16 hours, 45 minutes NM 12/05/2024 CPT:[id number]
--- NOTE | 2024-12-05 13:15 | BRBX_PTH ---
PATIENT: PATO UMAÑA LOC: OPUS U#:[id number] AGE/SX: 49/F ROOM: RE12/05/[address]: Dr. Anay Lugo MD : 1975 BED: DIS: 12/05/2024 SPEC #: [id number] RECD: 12/05/24 14:04 STATUS: CARROLL REQ #: [id number] FRANTZ: 12/05/24 13:[address]: Anay Lugo DEPT: SURGICAL PATHOLOGY RECD BY: Barrera Lovelace ENTERED: 12/05/24 14:41 SP TYPE: BREAST BX OTHR DR: Dr. Kala Solares MD Tissues: A - Left breast, NOS B - Left breast, NOS Procedures: Immunohistochemical Stains Surgery Specimen Level IV IHC Stain ADDITIONAL HEADER OPERATION: Ultrasound guided breast biopsy PRE-OP DIAGNOSIS: Left breast mass x2 TISSUE SUBMITTED: A- Left breast mass, 1o'clock, 6cm from nipple, B- Left breast mass, 3o'clock, 8cm A. Ischemic Time: Unknown Fixation Time: 16 hours, 45 minutes B. Ischemic Time: Unknown Fixation Time: 16 hours, 45 minutes MICROSCOPIC DIAGNOSIS A. Breast, left, 1:00, mass, biopsy: - Benign breast tissue - see note. Note: IHC for CK5/6 and p40 support the histologic impression. B. Breast, left, 3:00, mass, biopsy: - Benign breast tissue - see note. Note: IHC for CK5/6 and p40 support the histologic impression MICROSCOPIC DESCRIPTION Slides are reviewed. GROSS DESCRIPTION Received in 2 formalin containers labeled with the patient's name and date of . Designated as: A. Left breast 2 samples-1:00 6 cm FN are 2 fregoso-white tissue cores, 1.0 cm in length by 0.1 cm in diameter each. Entirely submitted in 1 cassette. Cold ischemic time: UnknownFormalin fixation time: 16 hours, 45 minutes B. Left breast 3:00 8 cm FN BX 2 are 2 fregoso-yellow tissue cores, 0.7 cm and 0.8 cm in length by 0.1 cm in diameter. Entirely submitted in 1 cassette. Cold ischemic time: Unknown Formalin fixation time: 16 hours, 45 minutes NC 12/05/2024 CPT:[id number]
--- NOTE | 2024-12-05 13:33 | OP.PCM_ITS ---
Operative Report (Standard) Operative Information Date of Procedure: 12/05/24 Pre-Operative Diagnosis: Left breast mass x 2 Post-Operative Diagnosis: Same Surgery/Procedure Performed: Ultrasound-guided left breast biopsy x 2 storage battery charger: No Type of Anesthesia: Local Procedure Start Time: 13:05 Procedure Stop Time: 13:25 Select all DRAINS/GRAFTS/IMPLANTS that apply: Implanted device Implanted device details: Bard dual ultraclip-coil at 3:00, ribbon at 1:00 Estimated Blood Loss: <5 cc Specimen collected: Yes Description of specimen(s) removed: 1. Left breast mass 1:00 6 cm from nipple, #2 left breast mass 3:00 8 cm from the nipple Description of surgery: Procedure: Left breast ultrasound-guided core biopsy x 2 Indications: 49 year-old female with hypoechoic nodules at 1:00 6 cm from nipple and 3:00 6 cm from the nipple in the left breast patient is also status post bilateral breast augmentation when she was 19.. Risk benefits were discussed the patient and she elected to proceed with ultrasound guided core biopsy with clip placement x 2 Description of procedure: Patient was brought into the ultrasound room in the left breast was marked. A timeout was completed verifying correct patient, procedure, site, specially, prior to beginning procedure. The left breast was prepped and draped in usual sterile fashion and using local anesthesia was obtained with 1% lidocaine. Both procedures were done similarly. The lesion wa s located with the ultrasound. Small incision was made with 11 blade to introduced the BARD MaxCore through the skin. Under ultrasound guidance multiple core samples were obtained using then 14-gauge BARD MaxCore and sent in formalin for pathology. The Bard dual ultra-(1:00 ribbon clip and 3:00 coil clip) clip was then deployed into the biopsy cavity under ultrasound guidance and a picture was taken. Upon completion procedure hemostasis was obtained and a Steri-Strip and OpSite were placed. Patient was then taken to the mammography suite for clip verification. The clip was verified. The patient tolerated the procedure well and was discharged from the breast imaging department good condition. complications: none Surgical Findings: See operative report Complications Complications: No
== END | disposition home or self-care (01) ==
PROVIDERS: PCP Family Medicine; Referring Provider Surgery; Visit Provider Surgery
DX: N63.20 Unspecified lump in the left breast, unspecified quadrant (principal)
CPT/HCPCS: 19083; 19084; 88305; 88341; 88342

== ENCOUNTER → 2025-01-14 | Outpatient (CLI) | payer SELFPAY | END | disposition home or self-care (01) | LOC: SL 20:04 | PROVIDERS: PCP Family Medicine; Referring Provider Family Medicine; Visit Provider Family Medicine | DX: G47.33 Obstructive sleep apnea (adult) (pediatric) (principal) | CPT/HCPCS: 95810 ==

== ENCOUNTER → 2025-01-17 | Outpatient (CLI) | payer SELFPAY ==
[2025-01-17 18:38] LABS: Follicle Stimulating Hormone 9.1 mIU/mL; Free T3 3.0 pg/mL (2.18-3.98); Vitamin B12 607 pg/mL (180-914)
[2025-01-19 05:07] LABS: PROGESTERONE 0.7 ng/mL (.)
== END | disposition home or self-care (01) ==
LOC: BFHLAB 15:17
PROVIDERS: PCP Family Medicine; Visit Provider Family Medicine
DX: N95.1 Menopausal and female climacteric states (principal); R00.0 Tachycardia, unspecified; E78.2 Mixed hyperlipidemia
CPT/HCPCS: 36415; 82607; 82627; 82670; 83001; 84144; 84439; 84443; 84481; 86376; 86800; 82626

== ENCOUNTER → 2025-03-26 | Outpatient (CLI) | payer SELFPAY ==
--- OUTSIDE RECORDS SUMMARY | 2025-03-26 15:49 | XMS RPT_ITS | CCD ---
Author Organization [facility] Care Team Providers Care Hot Header Operator Name Role Phone PATRICIA Vasquez, Brook Tristan Unavailable Unavailabl e Nakia PA, PA-C Natividad Primary Care Provider Dr. Pedro Eckert Attending Provider Dr. Kevin Tony Referring Provider Nakia PA-C, Natividad D Primary Care Provider Nakia PA-C, Natividad D Unavailable [phone] Nakia PA, PA-C Natividad Primary Care Provider Dr. Pedro Eckert Attending Provider Nakia PA-C, Natividad D Primary Care Provider Nakia PA-C, Natividad D Unavailable Dr. Priscila Umaña Referring Provider Unavailable Nakia COMBS, PA-C Natividad Primary Care Provider Dr. Pedro Eckert Attending Provider Dr. Priscila Umaña Referring Provider Unavailable Nakia PA, PA-C Natividad Primary Care Provider Nakia PA, PA-C Natividad Referring Provider RAYRAY Tran Attending Provider Nakia PA-C, Natividad D Primary Care Provider NATIVIDAD YEE Attending Unavailable VANITA YEELY Primary Care Unavailable NATIVIDAD YEE Admitting Unavailable Joshua PA-C, Natividad Primary Care Provider [phone] Jeff COMPUTATIONAL SCIENTIST-C, Elinor Lyle Attending Provider Unava ilable Jeff COMPUTATIONAL SCIENTIST-C, Elinor Lyle Referring Provider Unava ilable Erlinda DAVID, Dr. Chandler Emergency Provider Jeff COMPUTATIONAL SCIENTIST-C, Elinor Lyle Primary Care Provider Un available Jose Alexis MD Emergency Provider Dr. Ramesh Coffey DO Attending Provider NissaGilles DAVID, Dr. Gay Referring [facility], Dr. Gay Emergency Provider Care Physician, No Primary Primary Care Provider Unavailable Jose Alexis MD Attending Provider [facility] DAV[facility], Dr. Gay Attending Provider Beck COLLINS, Dr. Armendariz Primary Care Provider Dr. Kala Solares MD Attending Provider Dr. Kala Solares MD Referring Provider Dr. Dillon Florez MD Attending Provider Dr. nAay Lugo MD Attending Provider Beck COLLINS, Kala Primary Care Provider Dr. Anay Lugo MD Referring Provider Dr. Anay Lugo MD Other Provider Doroteo COLLINS, Dr. Weaver Attending Provider SALVADOR ARSHAD Attending Unavailable SELF Referring Unavailable NATIVIDAD YEE Primary Care Unavailable KATE HERNANDEZ Referring Unavailable KATE HERNANDEZ Attending Unavailable MIEDEL, KALA Primary Care Unavailable ISRA GODFREY Attending Unavailable BECK, KALA Primary Care Unavailable KATE HERNANDEZ Attending Unavailable BECK, KALA Primary Care Unavailable SPENCEREL, KALA Primary Care Unavailable ISRA GODFREY Attending Unavailable Mied, Kala Attending Unavailable Miedel, Kala Referring Unavailable Miedel, Kala Primary Care Unavailable Miedel, Kala Attending Unavailable Miedel, Kala Primary Care Unavailable Miedel, Kala Attending Unavailable Miedel, Kala Primary Care Unavailable Miedel, Kala Referring Unavailable Miedel, Kala Primary Care Unavailable Miedel, Kala Attending Unavailable Miedel, Kala Referring Unavailable Miedel, Kala Primary Care Unavailable Chasidy Staush Referring Unavailable Priscila Umaña Attending Unavailable Miedel, Kala Primary Care Unavailable Miedel, Kala Attending Unavailable Joshua Natividad COMBS Primary Care Unavailable Elinor Aguilar Referring Unavailable Elinor Aguilar Attending Unavailable Miedel, Kala Attending Unavailable Miedel, Kala Primary Care Unavailable Miedel, Kala Referring Unavailable Miedel, Kala Attending Unavailable Miedel, Kala Primary Care Unavailable Miedel, Kala Referring Unavailable Ramesh Coffey Attending Unavailable Elinor Aguilar Primary Care Unavailable Miedel, Kala Primary Care Unavailable Dillon Florez Attending Unavailable Miedel, Kala Primary Care Unavailable Miedel, Kala Referring Unavailable Robotham, Anay Attending Unavailable Miedel, Kala Primary Care Unavailable Robotham, Anay Referring Unavailable Robotham, Anay Attending Unavailable Miedel, Kala Primary Care Unavailable Miedel, Kala Attending Unavailable Miedel, Kala Referring Unavailable Miedel, Kala Primary Care Unavailable Miedel, Kala Referring Unavailable Miedel, Kala Attending Unavailable Jose Alexis Attending Unavailable Elinor Aguilar Primary Care Unavailable Klusty-Gilles, Victor Hugo Referring Unavailabl e Klusty-Gilles, Victor Hugo Attending Unavailabl e Care Physician, No Primary Primary Care Unava ilable Miedel, Kala Primary Care Unavailable Robotham, Anay Referring Unavailable Robotham, Anay Attending Unavailable Robotham, Anay Consulting Unavailable Allergies Allergy Classification Reported Allergen(s) Allergy Type Date of Onset Reaction(s) Facility (1 source) Azithromycin Drug Allergy 11-17-19 16 [facility] Work Phone: (1 source) Ciprofloxacin Drug Allergy 11-17-19 16 [facility] Work Phone: (1 source) levoFLOXacin Drug Allergy 11-17-19 16 [facility] Work Phone: (1 source) Sulfacetamide Drug Allergy 11-17-19 16 [facility] Work Phone: (20 sources) Azithromycin; Translations: [AZITHROMYCIN] Drug Allergy 03-02-20 07 [facility] (20 sources) Quinolones (Antibiotic); Translations: [QUINOLONES] Allergy to substance 03-02-20 07 [facility] Work Phone: (20 sources) Sulfonamides (Antibiotic); Translations: [SULFA (SULFONAMIDE ANTIBIOTICS)] Allergy to substance 03-02-20 07 [facility] (20 sources) 4-Aminobenzoic Acid; Translations: [P-AMINOBENZOIC ACID] Drug Allergy 03-02-20 07 [facility] (20 sources) Ciprofloxacin; Translations: [CIPROFLOXACIN] Drug Allergy 03-02-20 07 [facility] (20 sources) DULoxetine; Translations: [DULOXETINE] Drug Allergy 05-16-20 07 Intolerance [facility] (13 sources) levoFLOXacin; Translations: [LEVOFLOXACIN] Drug Allergy 07-15-19 15 [facility] (8 sources) Botulinum Toxin Type A Drug Allergy 12-01-19 25 [facility] (13 sources) cyclobenzaprine Drug Allergy 12-01-19 25 Other [facility] (13 sources) gabapentin Drug Allergy 12-01-19 25 Other [facility] (8 sources) Ivermectin Drug Allergy 12-01-19 25 Nausea/Vom/Adriane rrhea [facility] (13 sources) Naltrexone Drug Allergy 12-01-19 25 Other [facility] (13 sources) traMADol Drug Allergy 12-01-19 25 Other [facility] (7 sources) Sulfonamides (Antibiotic) Drug Allergy 03-02-20 07 [facility] (5 sources) Botulinum Toxin Type A Drug Allergy 12-01-19 25 [facility] (5 sources) Ivermectin Drug Allergy 12-01-19 25 [facility] (1 source) Azithromycin Drug Allergy 12-01-19 25 [facility] (1 source) Ciprofloxacin Drug Allergy 12-01-19 [facility] (1 source) cyclobenzaprine Drug Allergy 12-01-19 [facility] (1 source) gabapentin Drug Allergy 12-01-19 [facility] (1 source) Ivermectin Drug Allergy 12-01-19 [facility] (1 source) Naltrexone Drug Allergy 12-01-19 [facility] (1 source) traMADol Drug Allergy 12-01-19 [facility] (1 source) prabotulinumtoxinA- xvfs Drug allergy (disorder) 12-01-19 [facility] Medications Current Medications Medication Drug Class(es) Dates Sig (Normalized) Sig (Original) Acetaminophen (4 sources) acetaminophen (T YLENOL 8 HOUR ORAL) Take by mouth. Active acetaminophen (T YLENOL 8 HOUR ORAL) Take by mouth. 0 Active Comment on above: Take by mouth. amLODIPine 5 mg oral tablet (7 sources) Dihydropyridine Calcium Channel Amilcar Start: 12-02-19 take 1 tablet by mouth once daily amLODIPine (Norvasc) 5 MG tablet Take 5 mg by mouth daily. 12/01/2024 Active bacitracin 0.5 unt/mg ophthalmic ointment (3 sources) Start: 12-01-19 End: 12-06-19 bacitracin ophthalmic ophthalmic ointment Use 1 application in both eyes three times daily for 5 days. 3.5 g 0 11/30/2021 12/05/2021 Active Comment on above: Use 1 application in the right eye three times daily for 5 days. Use 1 application in both eyes three times daily for 5 days. cephalexin 500 mg oral capsule (20 sources) Cephalosporin Antibacterial Start: 12-01-19 End: 12-06-19 take 1 capsule by mouth three times [...] on above: Take 1 capsule by mo [facility] three times daily for 5 days. clonazePAM 0.5 mg oral tablet (20 sources) Benzodiazepine Start: take 1 tablet by mouth twice daily as needed clonazePAM (KlonoPIN) 0.5 MG tablet Take 0.5 mg by mouth 2 times daily as needed. 08/11/2023 Active Start: 09-10-2022 take 1 tablet by jostin every twelve hours Clonazepam 0.5 mg tablet [...] take 1 tablet by mouth once daily clonazepam (KLONOPIN) 0.5 mg ORAL Tab Take one(1) tablet daily 0 04/18/2007 Active Comment on above: Take one(1) tablet d [...] 11/21/2023 Active LORazepam 0.5 mg oral tablet (9 sources) Benzodiazepine Start: 11-06-19 take 1 tablet by mouth twice daily as needed for anxiety Lorazepam (Ativan) 0.5 mg tablet Active 0.5 mg PO TWICE A DAY as needed for anxiety 4 2 0 November 05, 2024 12:00am Do not take at night with your clonazepam. Magnesium (13 sources) Start: 12-01-19 MAGNESIUM PO 250 mg. 11/30/2024 Active Start: 11-30-2024 take 1 tablet by jostin th once daily Magnesium 250 mg tablet Active 250 mg PO daily November 30, 2024 12:00am magnesium citrate (12 sources) Start: 12-02-2020 Magnesium Citr ate 150mg 90 ct. (Pure Encapsulations) Take 3 capsules daily. 12/02/2020 Active Start: 12-02-2020 Magnesium Citr ate 150mg 90 ct. (Pure Encapsulations) Take 3 capsules daily. 0 12/02/2020 Active Comment on above: Take 3 capsules aimee y. Magnesium Glycinate 120mg 3 at night Stress, blood sugar, thyroid/hormones/adr enals/sleep/energy/t oxins/muscles/consti pation/asthma (12 sources) Start: 07-25-2020 Magnesium Glycinate 120mg 3 at night Stress, blood sugar, thyroid/hormones/adre nals/sleep/energy/tox ins/muscles/constipat ion/asthma Indications: Other chronic pain , History of [...] extended release oral tablet (20 sources) beta-Adrenergic Amilcar Start: 03-22-2025 End: 03-22-2026 take 1 tablet by mouth once daily metoprolol succinate XL (Toprol-XL) 25 MG 24 hr tablet Take 1 tablet (25 mg) by mouth daily. Do not crush or chew. 90 tablet 3 03/22/2025 03/22/2026 Active Start: 03-22-2025 End: 03-22-2026 take 1 tablet by mouth once daily metoprolol succinate XL (Toprol-XL) 50 MG 24 hr tablet Take 1 tablet (50 mg) by mouth daily. Do not crush or chew. 90 tablet 3 03/22/2025 03/22/2026 Active Start: 01-18-2025 take 1 tablet by jostin th twice daily metoprolol succinate XL (Toprol-XL) 100 MG 24 hr tablet Take 1 tablet (100 mg) by mouth 2 times daily. Take an additional 1/2 tablet (50 mg) as-needed for heart rate greater than 110 sustained. 180 tablet 1 01/18/2025 Active Start: 11-30-2024 take 1 tablet by jostin th once daily Metoprolol Succinate 50 mg tablet extended release 24 hr Active 50 mg PO daily November 30, 2024 12:00am Start: 09-10-2022 End: 12-10-2024 take 1 tablet by mouth twice daily Metoprolol Succinate 25 mg tablet extended release 24 hr Active 25 mg PO TWICE A DAY September 10, 2022 12:00am Start: 02-28-2019 End: 09-10-2022 take 1 tablet by mouth twice daily Metoprolol Tartrate 50 mg tablet Discontinued 50 mg PO TWICE A DAY February 28, 2019 12:00am September 10, 2022 9:37am take 1 tablet by jostin th once daily for diarrhea metoprolol succinate ER (TOPROL XL) 25 mg 24 hr tablet Indications: Encounter for gynecological examination with abnormal finding , Diarrhea, unspecified type Take 50 mg by mouth once daily. Active metoprolol succi quyen XL (Toprol-XL) 50 MG 24 hr tablet Take 100 mg by mouth 2 times daily. Take an additional 1/2 tablet (25 mg) as-needed for heart rate greater than 110 sustained. Do not crush or chew. Active take 1 tablet by jostin th twice daily metoprolol succinate XL (Toprol-XL) 50 MG 24 hr tablet Take 50 mg by mouth 2 times daily. Do not crush or chew. Active Comment on above: Take 50 mg by mouth once daily. [place] 8-Gfk-Euo-Fish Oil (Fish Oil) 60-90-500 mg capsule (8 sources) Start: 11-30-2024 [place] 6-Yqh-Dyc-Fish Oil (Fish Oil) 60-90-500 mg capsule Active 1 NMA PO daily November 30, 2024 12:00am traMADol hydrochloride 50 mg oral tablet (20 sources) Opioid Agonist Start: 04-18-2007 End: 12-10-2024 traMADOL 50 mg ORAL Tab as necessary.Take one(1) tablet as needed 0 04/18/2007 Active Comment on above: as necessary.Take on e(1) tablet as needed tumeric combination vit (8 sources) Start: 11-30-2024 tumeric combination vit Active PO November 30, 2024 12:00am Completed/Discontinued Medications Medication Drug Class(es) Dates Sig (Normalized) Sig (Original) acetaminophen 325 mg / oxyCODONE hydrochloride 5 mg oral tablet (20 sources) Opioid Agonist Start: 12-04-2019 End: 12-11-2019 Oxycodone-Acetamino phen 1 TABLET tablet Discontinued 2 {tbl} PO EVERY 8 HOURS NEEDED as needed for Pain December 04, 2019 December 10, 2019 12:00am December 11, 2019 12:02am Urinary tract infection Urinary tract infection, site not specified Start: 12-04-2019 End: 12-11-2019 take 2 tablets by mouth every eight hours as needed Oxycodone-Acetaminophen Discontinued 2 TABLET PO EVERY 8 HOURS NEEDED 23 12December 04, 2019 December 11, 2019 12:02am Amitriptyline (9 sources) Tricyclic Antidepressant Start: 11-05-2024 End: 11-05-2024 Amitriptyline (Bulk) powder Discontinued [facility] November 05, 2024 12:00am November 05, 2024 5:06pm ascorbic acid 500 mg oral capsule (20 sources) Vitamin C Start: 02-28-2019 End: 09-10-2022 take 1 capsule by mouth once daily Ascorbic Acid (Vitamin C) 500 mg capsule Discontinued 500 mg PO DAILY 0 February 28, 2019 12:00am September 10, 2022 9:39am aspirin 81 mg delayed release oral tablet (20 sources) Platelet Aggregation Inhibitor, Nonsteroidal Anti-inflammatory Drug Start: 09-10-2022 End: 10-26-2024 take 2 tablets by mouth once daily Aspirin 81 mg tablet,delayed release (DR/EC) Discontinued 162 mg PO DAILY September 10, 2022 12:00am October 26, 2024 5:36am Start: 09-10-2022 take 162 mg by mouth once aimee y Aspirin Active 162 MG PO DAILY September 10, 2022 12:00am End: 12-10-2024 take 1 tablet by mouth once daily aspirin 325 mg table t Take 325 mg by mouth once daily. Active Comment on above: Take 325 mg by mouth once daily. Baclofen (9 sources) gamma-Aminobutyric Acid-ergic Agonist Start: 11-06-19 End: 11-06-19 Baclofen (Bulk) 100 % powder Discontinued [facility] November 05, 2024 12:00am November 05, 2024 5:06pm biotin 1 mg oral capsule (20 sources) Start: 02-29-20 End: 05-09-20 take 1 capsule by mouth once daily Biotin 1 mg capsule Discontinued 1 mg PO DAILY February 28, 2019 12:00am May 09, 2020 10:20am cholecalciferol 0.05 mg oral capsule (20 sources) Vitamin D Start: 02-29-20 End: 09-11-19 take 1 capsule by mouth once daily Cholecalciferol (Vitamin D3) 2,000 unit capsule Discontinued 2000 U PO DAILY February 28, 2019 12:00am September 10, 2022 9:39am cyclobenzaprine hydrochloride 10 mg oral tablet (10 sources) Muscle Relaxant Start: 10-27-19 End: 11-06-19 take 1 tablet by mouth three times daily Cyclobenzaprine 10 mg tablet Discontinued 10 mg PO THREE TIMES A DAY October 26, 2024 12:00am November 05, 2024 5:06pm fluconazole 150 mg oral tablet (20 sources) Azole Antifungal Start: 12-04-19 End: 12-06-19 take 1 tablet by mouth once daily Fluconazole 150 MG tablet Discontinued 150 mg PO DAILY 2 2 0 December 04, 2019 12:00am December 05, 2019 12:00am December 06, 2019 12:02am gabapentin (19 sources) Anti-epileptic Agent Start: 11-06-19 End: 11-06-19 Gabapentin (Bulk) 100 % powder Discontinued [facility] November 05, 2024 12:00am November 05, 2024 5:07pm Start: 10-26-2024 End: 11-05-2024 take 100-200 mg by mouth once daily as needed for pain Gabapentin 100 mg capsule Discontinued 100 - 200 mg PO DAILY as needed for pain October 26, 2024 12:00am November 05, 2024 5:07pm GI-Revive 225 gram Powder ([employer]) (11 sources) Start: 07-25-2020 End: 11-16-2023 GI-Revive 225 gram Powder ([employer]) Indications: Other chronic pain , History of thyroid disease , Arthralgia, unspecified joint , Abnormal increased muscle tightness , Mold exposure , Chronic idiopathic constipation , Bloating , Chronic fatigue, unspecified , Diarrhea of presumed infectious origin , Heavy metal exposure Take 1 tablespoons twice daily (1 tablespoon = 1.5 grams L-glut) 0 07/25/2020 11/16/2023 Discontinued Start: 07-25-2020 GI-Revive 225 gram Powder ([employer]) Indications: Other chronic pain , History of [...] daily (1 tablespoon = 1.5 grams L-glut) Fcwohpdj-Azu-Rxlslkrn t-Vit D3 (11 sources) Start: 11-27-2019 End: 05-09-2020 Jmripaty-Mfa-Kotlcxley-Vi t D3 Discontinued 1 EACH PO DAILY November 27, 2019 1:16pm May 09, 2020 10:22am Start: 11-27-2019 End: 05-09-2020 Anpzvnje-Jey-Lciimhkvq-Vit D 3 Discontinued 1 EACH PO DAILY November 27, 2019 12:00am May 09, 2020 10:22am Start: 11-27-2019 End: 05-09-2020 Ogiyramc-Ylq-Yqxbgkjcw-Vit D 3 Discontinued 1 EACH PO DAILY November 26, 2019 11:00pm May 09, 2020 9:22am Qixdzqdh-Bjo-Kbynnsdqy-Vit D 3 1 EACH tablet (11 sources) Start: 11-27-2019 End: 05-09-2020 Dqzhuujq-Cwt-Phdchrxsr-Vit D 3 1 EACH tablet Discontinued 1 NMA PO DAILY November 27, 2019 12:00am May 09, 2020 10:22am Glycerin (9 sources) Non-Standard ized Chemical Allergen Start: 11-05-2024 [...] No.8 (Adult Probiotic) 3 billion cell capsule (20 sources) Start: 9 End: 0 take 3 [...] 2019 11:00pm May 09, 2020 9:24am Lidocaine (9 sources) Antiarrhythmic, Amide Local Anesthetic Start: 11-05-2024 End: 11-05-2024 Lidocaine (Bulk) powder Discontinued [facility] November 05, 2024 12:00am November 05, 2024 5:07pm magnesium oxide 500 mg oral capsule (20 sources) Start: 11-27-2019 End: 05-09-2020 take 1 capsule by mouth once daily Magnesium Oxide 500 MG capsule Discontinued 500 mg PO DAILY November 27, 2019 12:00am May 09, 2020 10:23am nitrofurantoin, macrocrystals 25 mg / nitrofurantoin, monohydrate 75 mg oral capsule (16 sources) Nitrofuran Antibacterial Start: 09-10-2022 End: 11-30-2023 take 1 capsule by mouth twice daily at mealtime Nitrofurantoin Monohyd/M-Cryst (Macrobid) 100 mg capsule Discontinued 100 mg PO TWICE A DAY September 10, 2022 12:00am November 30, 2023 8:43am must administer with a meal/food [place]-3 Fatty Acids (11 sources) Start: 02-28-2019 End: 05-09-2020 take 1000 mg by mouth once daily [place]-3 Fatty Acids Discontinued 1000 MG PO DAILY February 28, 2019 2:36pm May 09, 2020 10:23am Start: 02-28-2019 End: 05-09-2020 take 1000 mg by mouth once daily [place]-3 Fatty Acids Discontinued 1000 MG PO DAILY February 28, 2019 12:00am May 09, 2020 10:23am Start: 02-28-2019 End: 05-09-2020 take 1000 mg by mouth once daily [place]-3 Fatty Acids Discontinued 1000 MG PO DAILY February 27, 2019 11:00pm May 09, 2020 9:23am [place]-3 Fatty Acids 1,000 mg capsule (11 sources) Start: 02-28-2019 End: 05-09-2020 take 1 capsule by mouth once daily [place]-3 Fatty Acids 1,000 mg capsule Discontinued 1000 mg PO DAILY February 28, 2019 12:00am May 09, 2020 10:23am ondansetron 4 mg oral tablet (9 sources) Serotonin-3 Receptor Antagonist Start: 11-05-2024 End: [...] 1 tablet by mouth daily VIT-FE FUMARATE-FA [id number] Natividad Yee PA-C QUEtiapine 25 mg oral [...] to 1 tablet before bed QUETIAPINE FUMARATE [id number] Natividad Yee PA-C QUEtiapine 50 mg tablet Take 12 mg by mouth daily at bedtime. Active QUEtiapine 50 mg tablet Take 20 mg by mouth daily at bedtime. 0 Active Comment on above: Take 20 mg by mouth daily at bedtime. Take 12 mg by mouth daily at bedtime. Tretinoin (11 sources) Retinoid End: 11-16-2023 TRETINOIN (RETIN-A TOPICAL) Apply to affected area. 0 11/16/2023 Discontinued TRETINOIN (RETIN -A TOPICAL) Apply to affected area. 0 Active Comment on above: Apply to affected ar ea. Turmeric Root Extract (20 sources) Start: 11-27-2019 End: 05-09-2020 take 500 [...] 9:23am vitamin a 2.4 mg oral capsule (20 sources) Vitamin A Start: 11-27-2019 End: 05-09-2020 Vitamin A 8,000 UNIT capsule Discontinued 8000 U PO DAILY November 27, 2019 12:00am May 09, 2020 10:23am Vitamin B Comp And C No.3 (B Complex Plus Vitamin C) 29-44-77-5-300 mg capsule (20 sources) Start: 02-28-2019 End: 05-09-2020 Vitamin B Comp And C No.3 (B Complex Plus Vitamin C) 99-87-78-5-300 mg capsule Discontinued 1 CAP PO DAILY February 28, 2019 2:37pm May 09, 2020 10:23am Start: 02-28-2019 End: 05-09-2020 Vitamin B Comp And C No.3 (B Complex Plus Vitamin C) 53-65-79-5-300 mg capsule Discontinued 1 NMA PO DAILY February 28, 2019 12:00am May 09, 2020 10:23am Start: 02-28-2019 End: 05-09-2020 Vitamin B Comp And C No.3 (B Complex Plus Vitamin C) 49-13-85-5-300 mg capsule Discontinued 1 CAP PO DAILY February 28, 2019 12:00am May 09, 2020 10:23am Start: 02-28-2019 End: 05-09-2020 Vitamin B Comp And C No.3 (B Complex Plus Vitamin C) 88-13-94-5-300 mg capsule Discontinued 1 CAP PO DAILY February 27, 2019 11:00pm May 09, 2020 9:23am Problems Active Problems Problem Classification Problem Date Documented Date Episodic/Chronic Anxiety disorders (20 sources) Anxiety; Translations: [Anxiety disorder, unspecified] Onset: 11-17-2015 11-17-2015 Chronic E Codes: Adverse effects of medical drugs (10 sources) Adverse reaction to drug; Translations: [Adverse effect of unspecified drugs, medicaments and biological substances, initial encounter] 10-26-2024 Episodic Essential hypertension (20 sources) Hypertensive disorder; Translations: [Essential (primary) hypertension] Onset: 12-10-2024 12-04-2019 Chronic Genitourinary symptoms and ill-defined conditions (20 sources) Urge incontinence of urine; Translations: [Urge incontinence] 12-04-2019 Chronic Hypertension complicating ; childbirth and the puerperium (7 sources) Benign essential hypertension in obstetric context; Translations: [Pre-existing essential hypertension complicating , unspecified trimester] Onset: 03-25-2014 12-06-2024 Chronic Immunizations and screening for infectious disease [...] Translations: [Vaginitis and vulvovaginitis, unspecified] 10-06-2023 Episodic Menopausal disorders (2 sources) Menopausal and female climacteric states; Translations: [Menopausal and female climacteric states] Onset: 01-11-2025 Chronic Nutritional deficiencies (19 sources) Vitamin D deficiency; Translations: [Vitamin D deficiency, unspecified] Onset: 04-20-2007 04-20-2007 Chronic Other congenital anomalies (14 sources) Yesica-Danlos syndrome, type 3; 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] Onset: 03-25-2014 12-10-2024 Chronic Other connective tissue disease (20 sources) Pain in lower limb; Translations: [Pain in leg, unspecified] 11-15-2021 Episodic Other connective tissue disease (1 source) Pain in left lower limb; Translations: [Pain in left leg] Episodic Other female genital disorders (20 sources) Dyspareunia; Translations: [Dyspareunia] 12-04-2019 Chronic Other female genital disorders (1 source) Vulvar cyst; Translations: [Other specified noninflammatory disorders of vulva and perineum] 10-06-2023 Episodic Other infections; including parasitic (1 source) Pediculosis capitis; Translations: [Pediculosis due to Pediculus humanus capitis] 11-16-2023 Episodic Other lower respiratory disease (20 sources) Dyspnea; Translations: [Shortness of breath] Onset: 02-10-2017 02-10-2017 Episodic Other lower respiratory disease (2 sources) Shortness of breath; Translations: [Shortness of breath] Onset: 01-10-2025 Episodic Other lower respiratory disease (1 source) Snoring; Translations: [Snoring] Onset: 01-03-2025 Episodic Other nutritional; endocrine; and metabolic disorders (1 source) Hypercalcemia; Translations: [Hypercalcemia] Onset: 03-15-2024 Chronic Other screening for suspected conditions (not mental disorders or infectious disease) (20 sources) Encounter for screening for diabetes mellitus; Translations: [Thyroid function tests abnormal] Onset: 11-17-2015 11-17-2015 Episodic Residual codes; unclassified (1 source) Obstructive sleep apnea (adult) (pediatric); Translations: [Obstructive sleep apnea (adult) (pediatric)] Onset: 01-19-2025 Chronic Residual codes; unclassified (20 sources) Insomnia; Translations: [Insomnia, unspecified] Onset: 11-17-2015 11-17-2015 Episodic Skin and subcutaneous tissue infections (1 source) Paronychia of toe of right foot; Translations: [Cellulitis of right toe] 11-16-2023 Episodic Spondylosis; intervertebral disc disorders; other back problems (20 sources) Backache; Translations: [Dorsalgia, unspecified] 12-04-2019 Episodic Syncope (16 sources) Near syncope; Translations: [Syncope and collapse] Onset: 12-10-2024 12-10-2024 Episodic Unclassified (1 source) Procedure carried out on subject; Translations: [Encounter for screening for lipoid disorders] Onset: 11-17-2015 11-17-2015 Unclassified (2 sources) 1 Month Follow Up; Translations: [1 Month Follow Up] Onset: 01-30-2025 Unclassified (2 sources) Hypermobile Yesica-Danlos syndrome; 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] Onset: 12-06-2024 Unclassified (1 source) Resistant hypertension; Translations: [Resistant hypertension] Onset: 12-11-2024 Urinary tract infections (20 sources) Urinary tract infectious disease; Translations: [Urinary tract infection, site not specified] 12-04-2019 Episodic Past or Other Problems Problem Classification Problem Date Documented Da te Episodic/Chronic Allergic reactions (1 source) Allergy, unspecified, initial encounter; Translations: [Allergy, unspecified, initial encounter] Onset: 11-01-2024 Episodic Cardiac dysrhythmias (20 sources) Tachycardia; Translations: [Intermittent palpitations] Onset: 02-10-2017 02-10-2017 Episodic Malaise and fatigue (1 source) Other fatigue; Translations: [Other fatigue] Onset: 11-27-2024 Episodic Nonmalignant breast conditions (16 sources) Breast lump; Translations: [Unspecified lump in the left breast, unspecified quadrant] Onset: 11-30-2024 11-30-2024 Episodic Nonspecific chest pain (10 sources) Chest pain; Translations: [Chest pain, unspecified] Onset: 11-12-2024 11-05-2024 Episodic Other connective tissue disease (12 sources) Muscle pain; Translations: [Myalgia and myositis, unspecified] Onset: 05-16-2007 05-16-2007 Episodic Other nutritional; endocrine; and metabolic disorders (12 sources) H/O: thyroid disorder; Translations: [Personal history of other endocrine, nutritional and metabolic disease] Onset: 11-21-2013 11-21-2013 Episodic Results Test Name Value Interpretation Reference Range Facility 36on 03-22-2025 36 Called patient to lionel mccarty medication and refill questions. Patient states she is currently taking one 50 mg tablet and one 25 mg tablet of metoprolol in the morning (total of 75 mg) and one 100 mg tablet of metoprolol in the evening. She is requesting refills on her 50 mg and 25 mg tablets of metoprolol and is requesting 90 days for both due to worries that the pharmacy won't always have medications in stock when she needs them. Informed her that per her last visit with Dr. Godfrey he recommended she only follow up as needed since cardiac workup was normal and per his last note he is deferring labs and rx to PCP. Patient expressed concern with PCP taking over for her metoprolol. She states her PCP is only a general practitioner and that she knows nothing about cardiology. She states that her PCP always directs her to our office when she has concerns about her metoprolol. Questioned if patient currently has 50 mg and 25 mg tablets and patient verified that she does and that they were ordered by her PCP, but that her PCP states that she doesn't feel comfortable prescribing more than 75 mg bid for the extended release metoprolol. She also states that her PCP [place] a [place] doctor and has concerns about their knowledge/ability compared to city doctors so she would prefer our office continue to manage her metoprolol. Informed her that if we were to fill her medications we would need to see her annually for refills. Patient states she would be okay with that. Informed her I will send a request to Kate Hernandez APRN and will call her if Kate has any different or additional recommendations. Patient verbalized understanding and had no further questions at this time. [facility] 36 Pt is calling in wit h questions regarding medications and refills. Please call [facility] 36on 02-08-2025 36 I called and spoke w ith patient for a total of 16 minutes. She reviewed the dose adjustments of Toprol XL in the last week, and variations in symptoms based on dosages. We reviewed the importance of taking medications consistently for period of time to allow for stabilization of her vital signs. We review reassuring testing including her Holter monitor and echocardiogram. I have encouraged her to continue taking her Toprol XL, currently 75 mg in the morning and 100 mg at night. She was grateful for the call. [facility] 36 Pt calling in left a voice mail stating she had a bad night last night had to adjust her medications and is requesting to speak to a nurse. Please call [place] [phone] 02-06-2025 36 She was titrating metoprolol down based on Dr. Clarence islas to see if her symptoms would come back. Instructed pt to take metoprolol 75mg in morning with amlodipine and 100mg metoprolol in evening. She will do this. If any issues she will definitely contact the office. [facility] 36 S: Patient spoke wit h CAC nurse regarding B: Onset of symptoms the last 2 days. A: Nocturnal hypertension and concerned about low blood pressures, decreased does to 50 BID of Metoprolol and for 2 days and last night woke up with HTN and spike in pulse and and elevated B/P Tuesday night. Yesterday took 75 mg BID and took normal dose of Amlodipine and used anxiety meds pulse is high and diastolic was high, does not have the readings on her asking if she is having rebound HTN when she decreased the dose and should she go back to the 100 mg? Feels nervous this am d/t elevated B/P readings. No SOB this am, no CP, feels SOB for her. R: Patient is asking for a call back to see what does she should take this am. Asking if she should take 100 mg BID or 100 mg and 75 mg pm. Patient understands care advice. No further needs at this time. Patient instructed to call back with new or worsening symptoms. Reason for Disposition [1] Caller has URGENT medicine question about med that PCP or specialist prescribed AND [2] triager unable to answer question Protocols used: Medication Question Eijd-PLOAM-NY [facility] 36on 02-01-2025 36 Pt called in to the office today for the results of her HM. Please advise [facility] Office Visiton 01-30-2025 Follow-up visit [id number] Veronica Umaña 1975 F Date Provider Department Center 01/30/2025 [id number] GODFREY [facility] NE None Family History Problem Relation Age of Onset Hypertension Father Hypertension Brother Family Status - Relation Status Age at Father Brother Level of Service:[address] [place] OFFICE/OUTPATIENT ESTABLISHED MOD MDM 30 MIN Reason for Visit and Comments: 1 Month Follow Up [[id number]] Normal [facility] Progress Noteon 01-30-2025 Progress Note Etiology unclear. In setting of sleep disruption and uncontrolled Htn. Probable sinus tach based on prior monitors but formally need to confirm. -Continue BP mgt -F/u EM report. Normal [facility] Progress Note Stable. She has managed her own meds with slight variations. Sleep study negative. For the most part 2ndary workup for hypertension is negative. Toprol (non period days) 75 mg + 5 mg Norvasc ; 100 mg on period days with Norvasc. -Cont toprol as above -Cont norvasc 5 mg -Cont to f/u with PCP; Will defer Rx and labs to PCP. -If needed in future, consider diuretic as 3rd agent (such as hydrochlorothiazide, aldactone or other thiazide) -If continues to have unexplained variable or rising BP then recommend renal vascular US (eval for atherosclerotic GUERRERO or fibromuscular dysplasia). Normal [facility] Progress Note [facility] [place] [address] [facility] [address] [facility] [address] Dept: [phone] Dept Visit type: Established : 1975 Reason for Visit: 1 Month Follow Up Assessment and Plan Assessment & Plan Racing heart beat Etiology unclear. In setting of sleep disruption and uncontrolled Htn. Probable sinus tach based on prior monitors but formally need to confirm. -Continue BP mgt -F/u EM report. Essential hypertension Stable. She has managed her own meds with slight variations. Sleep study negative. For the most part 2ndary workup for hypertension is negative. Toprol (non period days) 75 mg + 5 mg Norvasc ; 100 mg on period days with Norvasc. -Cont toprol as above -Cont norvasc 5 mg -Cont to f/u with PCP; Will defer Rx and labs to PCP. -If needed in future, consider diuretic as 3rd agent (such as hydrochlorothiazide, aldactone or other thiazide) -If continues to have unexplained variable or rising BP then recommend renal vascular US (eval for atherosclerotic GUERRERO or fibromuscular dysplasia). Follow up if symptoms worsen or fail to improve. Subjective Copied from prior notes. Referred; self; met Dr. Godfrey 12/2024. Had treatment in [place]. Had trouble getting in to see cardiology so is here in [facility] for this. Had a lot of stressors in the last 16 mos. Has a 9 yr old at home. Has in-laws who are sick and she has her own medical issues which have not been stable. Awaiting bx results of left breast to determine if has breast cancer. Has been having various Sxs for over a year. Had a primary care physician and a bolt threader providing care but no longer doing so since begun with Dr. Solares, her PCP, who most recently modified her BP regimen. A few mos ago, began having CP along with high BP, somewhat variable. Self adjusting her own medications, and has been advised not to do this. One episode, while driving, felt near syncope. Pulled over due to dizziness. But did not syncopize. Pulled over and called her . But then it passed on its own. Long standing MSK pain; tramadol. Mostly for her back. Began seeing a bolt threader who prescribed her ivermectin for inflammation and possible muscle parasites. Then added low dose Naltrexone. I do not know the scientific basis for this prescribing strategy. She thinks she may have felt better but was concerned about the dosing. From a cardiac perspective ivermectin was unlikely to cause significant cardiac risk. In any case, she is not on this now. October 25; 2 hrs after going to bed, weakness up fever, pink all over, diarrhea, nausea, High BP, Pulse 120, her jaw felt tight. Possible drug reaction. Given zofran IV there. Then PCP gave her PO zofran and benadryl. Rec to stop meds and f/u with PCP. Then she found her HR elev 150 bpm. Went back to [place] ED. Took an EKG and test, and troponin. All of which were negative. Then 3rd visit to [place] ED. Feeling something's wrong. Repeated troponin, D-dimer. All tests were negative. Was rec for discharge. PCP added amlodipine. Blood pressure improving but not controlled. Anxiety treated with Klonopin. Dr. Godfrey reviewed stable EKG, calcium score of 0, and echo normal. No prior sign of ischemic heart disease, valve disease, or pericardial disease. No sign of hypertensive heart disease spite recent uncontrolled hypertension. Dr. Godfrey D/w her overall, that she is healthy, needs to start exercising. Snores, so getting a sleep study is a good idea. F/u with PCP for further BP optimization. Will defer to PCP to f/u on TSH and catecholamines. But if her BP continues to rise and not be well controlled, then would favor a renal doppler US to rule out renal artery stenosis as a secondary cause of Htn. Dr. 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 This is not assoc with cardiac disorders but can be associated with autonomic nervious system dysfunction which could lead to labile BP and labile HR. There is no fix for this. We place pts on meds that optimized BP mgt. I encouraged her to talk to PCP to see if she can get a clearer dx of hEDS as this could be important to understand her salvage determiner course. Patient tells me that pheochromocytoma was evaluated and negative. Uncle is a process stripper and functional medicine doc Pt reportedly treated for Serotonin syndrome, October 2024. 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 Hx of excessive bleeding on menses, will soak through a pad in 1 hour; chronic. TODAY: Feeling better. Unfortunately, her EM is not available. Eats healthy, avoid ultra-processed food. Avoid salt, started daily allowance of potassium from O/C sources. Says she attributes this intervention with better improved BP and less cramps (more content not included)... [facility] 36on 01-29-2025 36 Also sent a secure c hat to Sveta and she is working on getting HM into pts chart for miguel appt [facility] 36 Called PCP LMOM for records to be faxed [facility] 36on 01-25-2025 36 Called PCP LMOM for results of testing to be faxed to our office [facility] 36 Returned patient's c all regarding her heart rate and spent 45 minutes discussing her concerns. Patient states that she decreased her metoprolol to 75 mg bid starting on Tuesday and Tuesday night she had no symptoms. Last night she states she woke up multiple times feeling hot and sweaty and when she woke up her HR would increase to the 80-90s. She states when her HR would go up that high she felt like her heart was racing. She states she did check her BP when she was having symptoms and that it was 132/78. She states she tried taking her anxiety medications to see if that would alleviate her symptoms, but states it didn't help. She states she is feeling exhausted and is now worried to go to sleep at night due to symptoms. She denies any symptoms during the day. Informed her that if she is having symptoms at night related to increased HR she could goback to the 100 mg metoprolol dose at night to see if that helps. Patient states she was having these symptoms even on the 100 mg dose and on the increased dose her HR was 49 at night and so she doesn't want to increase the metoprolol. Patient informed me of her previous struggles with elevated BP readings and states that her BP was elevating during her menstrual cycle. She states her Uncle used to be a process stripper (currently works in functional medicine per patient) and he told her that amlodipine's efficiency decreases during menstrual cycle. Informed her of Dr. Godfrey's message regarding this which patient states she did read and had no further concerns on this issue. Patient states that Dr. Holland told her she should look into autonomic regulation and she states she has an appointment for evaluation of this on 05/08/25. She states her PCP told her trazodone can be used for autonomic regulation, but patient states she cannot take SSRIs due to a history of serotonin syndrome in the past. Informed her she should wait until her appointment in May for further workup and treatment of this. Patient states she did take potassium and magnesium today and states she is feeling better since taking it. She's concerned her medications are causing magnesium and potassium deficiencies. Questioned if she's had recent lab work and she states she has had lab work done through her PCP in the last month. She also states she had an Echo done and a CTA of her abdomen. Informed her we will call over and have results faxed to us for our records and so Dr. Godfrey can review during appointment. Patient questioned if her symptoms are common and informed her we do have multiple patients who get nocturnal palpitations. She questioned if everyone tolerates metoprolol and informed her everyone is different and medications affect everyone differently. Patient is concerned metoprolol is not working for her and questioned what else could be done. Informed her there are other beta blockers that could be tried. Patient wanted it noted that she would like to discuss beta amilcar options at upcoming appointment. Patient then stated that she is unsatisfied with the care she receives at [facility] and is in the process of relocating to be closer to [facility]. She states that she's concerned she will continue having symptoms at night and will have to go to [place] since they are the closest hospital. Informed her she can always call our after hours call center if she has an nocturnal symptoms that need attention. Informed patient that currently we are still waiting for monitor results and that there isn't much we can do until we have those and can rule out arrhythmia, per Dr. Godfrey's message. Patient questioned how long results would take since she just mailed it back yesterday. Informed her it can take a few days to be returned via mail and from there it can tale an additional few days to get downloaded into our system. Informed her once monitor is received we can always call the Holter room to see if they can cifuentes downloading the results for review, but unsure when they'd receive the device. Informed patient that we will request labs and testing from PCP and wait for monitor results. If received and reviewed before her appointment, informed her we will call her if Dr. Godfrey has any additional recommendations prior to her upcoming appointment. Otherwise, we will see her next Tuesday. Patient verbalized understanding and had no further questions at this time. [facility] 36 Pt called in today l eft a voice mail stating she has been up all night and was unable to sleep due to elevated HR. She states when she lays down her heart rate goes up. She is requesting a call from a nurse [facility] CNPNon 01-24-2025 CNPN Telephone (NNSTFM) -- EVRONICA UMAÑA ([id number]) 1975 F Date Time Provider Department 01/24/25 SALVADOR ARSHAD [facility] During your visit today, we recorded the following information about you: Masha Fletcherth 01/24/2025 4:52 PM Signed Pt called very agitated regarding her appt today. Appt was scheduled for 12p today. Pt checked in at 12:08 with ESTELA Pardo. Pt waited 3.5 hours, only to be told to reschedule their appt for another day. Pt stated she paid $500 in snyder for this appt. No refunds were issued at the time when Pt was notified to reschedule. Pt was given Ombudsman to call to report the situation. Pt called a [facility] number (unsure where) and was routed to our office. Apologized for the experience today. Offered to reschedule with another provider at a different location. Pt declined. Escalated the situation to Lucy Cook for follow up. Salvador Campbell MD 01/24/2025 5:01 PM Signed Patient checked in at the senior front end web developer at 12:08 for 12 PM appointment. Unfortunately, there was insufficient time to room patient per office protocol and complete visit by end of scheduled visit time (12:30) Patient was scheduled for follow up visit. Of note, she was last seen in > 2 years (last visit 2022) It would not be possible to adequately conduct an appropriate visit in the remaining time. She was advised to reschedule. Allergies As of Date: 01/24/2025 Noted Allergy Reaction CIPRO (CIPROFLOXACIN) 03/02/2007 4 [...] LPN - Fully Assessed Reason for Visit: Appointment [186] Cmt: 01/24/25 Appt Issue Prescriptions as of 01/24/2025 - acetaminophen (TYLENOL 8 HOUR ORAL) Take by mouth. - aspirin 325 mg tablet Take 325 mg by mouth once daily. - Magnesium Citrate 150mg 90 ct. (Pure Encapsulations) Take 3 capsules daily. - Magnesium Glycinate 120mg 3 at night Stress, blood sugar, thyroid/hormones/adrenals/ sleep/energy/toxins/muscle s/constipation/asthma Work up to 3 capsules with meals at night - can cause loose stools - metoprolol succinate ER (TOPROL XL) 25 mg 24 hr tablet Take 50 mg by mouth once daily. - QUEtiapine 50 mg tablet Take 12 mg by mouth daily at bedtime. - traMADOL 50 mg ORAL Tab as necessary.Take one(1) tablet as needed - clonazepam (KLONOPIN) 0.5 mg ORAL Tab Take one(1) tablet daily Problem List As Of Date 01/24/2025 Noted Resolved VITAMIN D DEFICIENCY NOS [E55.9] 04/20/2007 MYALGIA AND MYOSITIS NOS [[id number]] 05/16/2007 History of thyroid disease [Z86.39] 11/21/2013 Encounter Status:Closed by JANE FLETCHER on 01/24/25 [facility] 36on 01-23-2025 36 Pt called back to sp eak to Dr. Godfrey. She states she doesn't think Deana realizes the seriousness of her condition. 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 She is requesting a call back before the end of the day Please advise [facility] 36 Patient called in regarding HR concerns; we spent 45 minutes discussing her symptoms. She reports all night her heart was racing. Reports BP contoled at 120/70's. She reports that she wanted to check her HR's while she was still awake noted her HR's usually 60-65 bpm. She notes as she would doze off her HR was 49 and then would shoot to 80 BPM. BP normal. She said this happened 3 different times when she trialed it. She does not want to continue with Toprol 100 mg BID. She has concerns about her BP's and HR's and wants to know Dr Godfrey's thoughts on if her medications should be titrated-she also has concerns about amlodipine levels changed during her menstrual cycle (reports her uncle, a functional medicine process stripper told her this). She says she will not take Toprol 100 mg BID as she is very concerned about her HR dropping and thinks her body is having an adrenaline type response from her HR going too low. We discussed hormonal fluctuations and sometimes underlying anxiety can cause these fluctuations-she did not seem fond of this answer-she would like to know Dr Godfrey's thoughts. She also has concerns about her Klonopin decreasing her HR/BP, but does not want to titrate this. It does sound like she would be agreeable trialing 75 mg at night instead of the 100 mg, but wants Dr Godfrey's opinion. She says she saw nephrology, Dr Moser yesterday and he discussed potentially spironolactone as a medication that could be used-but she said Dr Moser wanted to talk to Dr Godfrey first; she insists Dr Moser is going to call Dr Godfrey. She also tells me that she plans to see Dr Trenton Henry in [place] as he is community development officer/functional hypertension specialist that her Uncle (a process stripper) was able to help her get in with; she reports she will have a 2 day work-up April 15- for this and he will follow with her for a year along with us and her PCP. She really wants an answer from Dr Godfrey by the time we leave. I think a DAXKOt message would be very helpful for her. Normal [facility] DHEA Sulfateon 01-21-2025 DHEA SULFATE 217.0 ug/dL Normal 41.2-243.7 [facility] Comment on above: Order Comment: N Performed By: #### L [id number] #### [facility] [address] [facility] [id number] Thyroid Antibodieson 025 TG AB < 1.0 Normal 0.0-0.9 [facility] Comment on above: Result Comment: Thyr oglobulin Antibody measured by [employer] Methodology It should be noted that the presence of thyroglobulin antibodies may not be pathogenic nor diagnostic, especially at very low levels. The assay computer assembler has found that four percent of individuals without evidence of thyroid disease or autoimmunity will have positive TgAb levels up to 4 IU/mL. Performed at: [facility] [address] [id number] Sheriff'S Officer: Kalpesh Thompson PhD, Phone: [phone] Performed By: #### L [id number] #### [facility] [address] [place] [place], [address] THYR PEROX AB < 9 Normal 0-34 [facility] [facility] Comment on above: Performed By: #### L 499.0042 #### [facility] [address] [facility]. [facility] [address] PROGESTERONE 4317on 01-20-20 25 PROGESTERONE 0.7 ng/mL Normal . [facility] Comment on above: Order Comment: Y Result Comment: Foll icular phase 0.1 - 0.9 Luteal phase 1.8 - 23.9 Ovulation phase 0.1 - 12.0 First trimester 11.0 - 44.3 Second trimester 25.4 - 83.3 Third trimester 58.7 - 214.0 Postmenopausal 0.0 - 0.1 Performed at: Dr. [address] [id number] Sheriff'S Officer: Kalpesh Thompson PhD, Phone: [phone] Performed By: #### L 499.0042 #### [facility] [address] [place], [address] 36on 01-18-2025 36 Per MARSHA Dejesus: Reviewed. Thank you for calling her. Continue on Toprol XL 100 mg twice daily. We do not need to decrease the nighttime dose. I sent in 100 mg tablets. If needed she can take half of the 100 mg tablet, which is 50 mg as needed for sustained heart rates above 110. The reason I did 25 mg before is because she had 50 mg tablets on hand and I wanted her to break it in half so that I would start acting sooner. Continue with the rest of plans as discussed in office. Thank you. I called and spoke to Veronica relaying the above; she verbalized understanding. She will continue the Toprol 100 mg BID. She notes she prefers to take 25 mg of metoprolol for hypertension and is nervous taking full 50 mg for elevated HR-I let her know we recommended the metoprolol PRN for HR > 110, not for HTN as it effects HR more. She was thankful for the call. [facility] 36 I called and spoke t moisés Martin. She notes her daytime BP and HR are controlled. She has been taking her metoprolol 100 mg BID and her amlodipine 5 mg BID along with her usual klonopin; she take 0.5 mg at 7 PM and another one at 9 PM. She would not like to adjust her Klonopin. She notes she continues to have issues with waking up a few times during the night; not due to sleep apnea; jump wakes up. She last night she felt like she needed air and was breathing deeply, so she stood up; she felt off, but not dizzy or lightheaded; she checked her HR and it was 54-this is the only night it has gone lower than 60; woke up a couple more times and in the morning HR was 65. Her SPO2 was 96% for this. We discussed sometimes our bodies take awhile to adjust to new medications and get regulated. It may have been a fluke with the breathing and HR. She would like to know if Kate thinks she should stay on the same dose or cut the metoprolol back to maybe 75 mg tonight and see how she feels/if HR's higher. She mainly wants to have a plan going into the weekend. She also asks that we send in 50 mg tablets of Toprol (doesn't have currently) as if she needs a PRN dose, she would like to have 50 mg tablets to cut in half. She was thankful for the call. [facility] 36 Please call pt she h as multiple medication questions. Experiencing a low heart rate at night. Please call [facility] Estradiolon 01-17-2025 ESTRADIOL 115.0 pg/mL [facility] Comment on above: Result Comment: FEMA LES ADULT FEMALE: Premenopausal: 15-350 pg/mL(E2 levels vary widely through the menstrual cycle) Postmenopausal: <10 pg/mL PRO STAGES MEAN AGE REFERENCE RANGES Stage I(>14 days and prepubertal) 7.1 years Undetectable-20 pg/mLL Stage II 10.5 years Undetectable-24 pg/mL Stage III 11.6 years Undetectable-60 pg/mL Stage IV 12.3 years 15-85 pg/mL Stage V 14.5 years 15-350 pg/mL Puberty onset (transition from Pro stage I to Pro stage II) occurs for girls at a median age of 10.5 (/- 2) years. There is evidence that it may occur up to 1 year earlier in obese girls and in girls. Progression through Pro stages is variable. Pro stage V (adult) should be reached by age 18. Performed By: #### L 499.0042 #### [facility] [address] [place], [place], [address] Follicle Stimulating Hormone on 01-17-2025 FSH 9.1 mIU/mL [facility] Comment on above: Result Comment: FEMA LE: Follicular: 1.4 - 18.1 mIU/mL Midcycle: 3.4 - 33.4 mIU/mL Luteal: 1.5 - 9.1 mIU/mL Post Menopause: 23.0 - 116.3 mIU/mL MALE: 1.4 - 18.1 mIU/mL Performed By: #### L 501.9520, L501.07329, L503.0106, L3300.1750, L3100.5125, L506.0400, L801.2600, L3300.1500, L3300.6750 #### [facility] [address] [place], [place], [id number] (330) Free T3on 01-17-2025 Free T3 [Mass/Vol] 3.0 pg/mL Normal 2.18-3.98 [facility] Comment on above: Order Comment: Y Performed By: #### L 501.9520, L501.03044, L503.0106, L3300.1750, L3100.5125, L506.0400, L801.2600, L3300.1500, L3300.6750 #### [facility] [address] [place], [place], [id number] Free A0Zqsavbv By: Kala sharma on 01-17-2025 Free T3 [Mass/Vol] 3.0 pg/mL 2.18-3.98 [facility] Serum or plasma estradiol me asurement after follitropin dose (mass/volume)Ordered By: Kala Solares on 01-17-2025 E2 post dose follitropin [Mass/Vol] 115.0 pg/mL [facility] Comment on above: FEMALES ADULT FEMALE : Premenopausal: 15-350 pg/mL(E2 levels vary widely through the menstrual cycle) Postmenopausal: <10 pg/mL PRO STAGES MEAN AGE REFERENCE RANGES Stage I(>14 days and prepubertal) 7.1 years Undetectable-20 pg/mLL Stage II 10.5 years Undetectable-24 pg/mL Stage III 11.6 years Undetectable-60 pg/mL Stage IV 12.3 years 15-85 pg/mL Stage V 14.5 years 15-350 pg/mL Puberty onset (transition from Pro stage I to Pro stage II) occurs for girls at a median age of 10.5 (/- 2) years. There is evidence that it may occur up to 1 year earlier in obese girls and in girls.Progression through Pro stages is variable. Pro stage V (adult) should be reached by age 18. Serum or plasma thyroperoxid ase antibody assay (units/volume)Ordered By: Kala Solares on 01-17-2025 TPO Ab Qn [IU]/mL 0-34 [facility] T4 Free Directon 01-17-2025 T4 FREE DIRECT 1.50 ng/dL High 0.76-1.46 [facility] Comment on above: Order Comment: Y Performed By: #### L 501.9520, L501.73524, L503.0106, L3300.1750, L3100.5125, L506.0400, L801.2600, L3300.1500, L3300.6750 #### [facility] [address] [facility] [place], [place], [id number] T4 freeOrdered By: Kala sharma on 01-17-2025 Free T4 [Mass/Vol] 1.50 ng/dL High 0.76-1.46 [facility] TSH DL <= 0.005 mIU/L QnOrde red By: Kala Solares on 01-17-2025 TSH Qn 0.435 uIU/mL 0.300-4.20 0 [facility] Thyroid Stim Hormone (TSH)on 01-17-2025 TSH 0.435 uIU/mL Normal 0.300-4.20 0 [facility] Comment on above: Performed By: #### L 501.9520, L501.53714, L503.0106, L3300.1750, L3100.5125, L506.0400, L801.2600, L3300.1500, L3300.6750 #### [facility] [address] [place], [place], [id number] Vitamin B12on 01-17-2025 Cobalamin (Vitamin B12) [Mass/Vol] 607 pg/mL Normal 180-914 [facility] Comment on above: Performed By: #### L 501.9520, L501.16859, L503.0106, L3300.1750, L3100.5125, L506.0400, L801.2600, L3300.1500, L3300.6750 #### [facility] [address], [address] Vitamin B12 ser/plasOrdered By: Kala Slaughteredith on 01-17-2025 Cobalamin (Vitamin B12) [Mass/Vol] 607 pg/mL 180-914 [facility] 36on 01-11-2025 36 Pt states PCP cut amlodipine in half to 2.5mg BID and metoprolol succinate 50mg BID. She has too many med changes she has been doing today and suggesting alternatives for taking today with anxiety that the medication is going to not wake her up. I spoke with kate and she would like her to follow cardiology recs with dosing schedule. She provided parameters if heart rate below 60 hold metoprolol if evening dose of amlodipine 5mg systolic is below 100 with symptoms she is to hold. Verbalized understanding. Normal [facility] ECG 12 leadon 01-08-2025 Sinus Rhythm WITHIN NORMAL LIMITS [facility] ECG 12 leadOrdered By: Karen Skinner on 01-08-2025 [facility] [employer] Work Phone: Office Visiton 01-08-2025 Follow-up visit [id number] Veronica Umaña 1975 F Date Provider Department Center 01/08/2025 [facility]ATE [facility]N [facility] NE None Family History Problem Relation Age of Onset Hypertension Father Hypertension Brother Family Status - Relation Status Age at Father Brother Level of Service:04092 [place] OFFICE/OUTPATIENT ESTABLISHED MOD MDM 30 MIN Reason for Visit and Comments: Follow-up [784115] Normal [facility] Progress Noteon 01-08-2025 Progress Note [facility] [place] [address] [place] [address] [address] [facility] [address] Dept: [phone] Dept Visit type: New : 1975 Reason for Visit: Follow-up Assessment and Plan 1. Palpitations - ECG 12 lead - Cardiac holter monitor (8- 15 days) 2. Racing heart beat - Cardiac holter monitor (8- 15 days) 3. Yesica-Danlos syndrome type III - Cardiac holter monitor (8- 15 days) 4. Near syncope - Cardiac holter monitor (8- 15 days) 5. Essential hypertension - Cardiac holter monitor (8- 15 days) 6. Shortness of breath - Cardiac holter monitor (8- 15 days) There is a lot to address here, and we reviewed this at length in the office. Her appointment lasted well over an hour, and I told her that we can address additional things at additional appointments but that it will take some time. We tried to prioritize the followin. She is taking Toprol-XL 50 mg twice daily; she roughly takes this at 7 or 8 AM and then needs it again by 5 PM. She just started taking an additional 25 mg at night for additional coverage. She clearly needs more beta-amilcar. I will increase today to Toprol XL 100 mg twice daily, but advised that she take half of the 50 mg tablet for breakthrough palpitations. 2. Amlodipine was changed 01/03/2025 from 5 mg daily to 5 mg twice daily. This was done by primary care provider, and she does report some improvement to her evening blood pressures. She is tolerating this and we will continue as currently prescribed. She is very nervous about overtreating the blood pressure, and today I gave her a parameter of 90/50 being an acceptable blood pressure unless she is orthostatic, dizzy, syncopal. 3. quality assurance monitor final. She has episodes where she wakes up with periods of hypertension and racing pulse. She has a lot of anxiety regarding going to sleep and fearing whether or not she will wake up. I would like to capture what is going on during these events. They are happening just about daily, but I will order a 2-week monitor so that we make sure we capture a good portion. 4. Possible sleep apnea. She has a test and lab soon and will schedule up with primary care. This could be a contributing factor to her nighttime symptoms. 5. Other contributing factors to her current problems include: Salt sensitivity. Perimenopause. Elevated aldosterone 33.3, minimally elevated (range 0-30.0). Anxiety. Yesica-Danlos type III. She says she really does not tolerate salt, so I have asked her to avoid it. Would be reasonable to go back to her primary care provider for additional testing of the above problems, and referral to specialties as appropriate. 6. She did ask about information for autonomic dysfunction, see prior telephone encounter. I did find information on the management of autonomic dysfunction on up-to-date and printed out for her. Follow up for Dr. Godfrey after testing complete . Subjective Referred; self; met Dr. Godfrey 12/2024. Had treatment in [place]. Had trouble getting in to see cardiology so is here in [facility] for this. Had a lot of stressors in the last 16 mos. Has a 9 yr old at home. Has in-laws who are sick and she has her own medical issues which have not been stable. Awaiting bx results of left breast to determine if has breast cancer. Has been having various Sxs for over a year. Had a primary care physician and a bolt threader providing care but no longer doing so since begun with Dr. Solares, her PCP, who most recently modified her BP regimen. A few mos ago, began having CP along with high BP, somewhat variable. Self adjusting her own medications, and has been advised not to do this. One episode, while driving, felt near syncope. Pulled over due to dizziness. But did not syncopize. Pulled over and called her . But then it passed on its own. Long standing MSK pain; tramadol. Mostly for her back. Began seeing a bolt threader who prescribed her ivermectin for inflammation and possible muscle parasites. Then added low dose Naltrexone. I do not know the scientific basis for this prescribing strategy. She thinks she may have felt better but was concerned about the dosing. From a cardiac perspective ivermectin was unlikely to cause significant cardiac risk. In any case, she is not on this now. October 25; 2 hrs after going to bed, weakness up fever, pink all over, diarrhea, nausea, High BP, Pulse 120, her jaw felt tight. Possible drug reaction. Given zofran IV there. Then PCP gave her PO zofran and benadryl. Rec to stop meds and f/u with PCP. Then she found her HR elev 150 bpm. Went back to [place] ED. Took an EKG and test, and troponin. All of which were negative. Then 3rd visit to [place] ED. Feeling something's wrong. Repeated troponin, D-dimer. All tests were negative. Was rec for discharge. PCP added amlodipine. Blood pressure improving but not controlled. Anxiety treated with Klonopin. (more content not included)... Normal [facility] 36on 01-07-2025 36 Scheduled tomorrow a t 10 am Normal [facility] 36 I called and told Reginaldo bennett that Kate has openings this week. Veronica is agreeable if she can get a ride. She will talk to the ward secretary to get an appointment. Normal [facility] 36 I spoke with Veronica when she called in to the office. She has been waking every night with a gasp from a dream and her heart rate is fast and her BP is elevated in the 160. This occurred last night after just 45 minutes of sleep. Before sleep her BP was 126/80 on right and 128/80 on the Left. She slept 45 minutes awoke from a dream and gasped and her BP was 160/80 heart rate was in the 110-120's she drank 70 ounces of water and her heart rate came down to 70-80 and BP came down to the 130's. She is wondering if the heart monitor can be ordered before her appointment with Anitha on 01/29/25. She would like to talk to some one that can explain the autonomic disorder that Dr. Godfrey mentioned in his office note from the 12/10/24 visit. Normal [facility] Aldosterone, Serumon 025 ALDOSTERONE,S 33.3 ng/dL High 0.0-30.0 [facility] Comment on above: Order Comment: Test( s) 681873-Cspgb Activity, Plasmawas developed and its performance characteristicsdetermined by [facility]. It has not been cleared or approvedby the Food and Drug Administration. Result Comment: Perf ormed at: [facility] [id number] Sheriff'S Officer: Dagoberto Moon MD, Phone: [phone] Performed By: #### L 1000100, [id number] #### [facility], [address] Renin, Plasmaon 12-16-2024 RENIN, PLASMA 2.712 ng/mL/hr Normal 0.167-5.38 0 [facility] Comment on above: Order Comment: Test( s) 827212-Lwpnb Activity, Plasmawas developed and its performance characteristicsdetermined by [facility]. It has not been cleared or approvedby the Food and Drug Administration. Performed By: #### L 100.0100, L500.4050 #### [facility] [address] [place], [place], [address] L3410.9992on 12-11-2024 [facility] Misc. COMMENT Normal . [facility] Comment on above: Order Comment: [id number] 6METANEPHRINES LAV PLAS Result Comment: Test Ordered: [id number] Metanephrines, Frac., Pl. Free Test(s) 752351-Wjniezyeqapmwsb, Pl; 730901-Zhlncvmbdzzl, Pl was developed and its performance characteristics determined by [facility]. It has not been cleared or approved by the Food and Drug Administration. Normetanephrine, Pl 72.0 pg/mL BN Reference Range: 0.0-244.0 Metanephrine, Pl 25.8 pg/mL Reference Range: 0.0-88.0 Performed at: - [address] [id number] Sheriff'S Officer: Dagoberto Moon MD, Phone: [phone] Performed at: [facility] [address] [id number] Sheriff'S Officer: Kalpesh Thompson PhD, Phone: [phone] Performed By: #### L 100.0100, L500.4050 #### [facility] [address] [place], [place], [address] Surgical pathology reportOrd ered By: Kimi Montero on 12-11-2024 Surgical pathology study [facility] ECG 12 leadon 12-10-2024 Sinus Rhythm WITHIN NORMAL LIMITS [facility] Office Visiton 12-10-2024 Follow-up visit [id number] Veronica Umaña 1975 F Date Provider Department Center 12/10/2024 ISRA ROMERO [facility] NE None Family History Problem Relation Age of Onset Hypertension Father Hypertension Brother Family Status - Relation Status Age at Father Brother Level of Service:32354 [place] OFFICE/OUTPATIENT NEW MODERATE MDM 45 MINUTES Reason for Visit and Comments: New Patient [542] Normal [facility] Progress Noteon 12-10-2024 Progress Note Etiology unclear. In setting of sleep disruption and uncontrolled Htn. -Stabilize BP mgt -F/u in cardiology office; if still having unexplained tachycardia then would ck EM. Normal [facility] Progress Note Dx'd about 10 yrs ag o. She has never had a genetic test for this or other forms of EDS. -Rec she d/w PCP to be referred to a specialist to address this. Would be helpful to her and her other physicians to know what the dx is. -Some pts with hEDS (Type III) can have autonomic dysfunction; but uncommonly is associated with cardiac issues. The pattern is not like other forms that have vascular structural disorders which is common for other types of EDS such as vEDS or kEDS. Normal [facility] Progress Note One time episode. Oc curred in a car. In setting of variable BP and self dosing of Toprol. No recurrence. Extensive cardiac w/u reviewed and is benign thus far. -No additional cardiac testing at this time. -Stop self dosing meds -Stably manage BP meds with PCP -hEDS may be associated with autonomic dysfunction and theoretically could predispose her to this; expectant mgt. Normal [facility] Progress Note Target BP 140/90, ca n also target 130/80 mmHg. -Cont toprol 50 bid -Cont norvasc 5 mg -Cont to f/u with PCP; titrate as needed. Consider diuretic as 3rd agent (such as hydrochlorothiazide, aldactone or other thiazide) -Rec sleep study -F/u on pheo w/u -If continues to have unexplained variable or rising BP then recommend renal vascular US (eval for atherosclerotic GUERRERO or fibromuscular dysplasia). Normal [facility] Progress Note [facility] [place] [address] [facility] [address] [facility] [address] Dept: [phone] Dept Visit type: New : 1975 Reason for Visit: New Patient Assessment and Plan 1. Near syncope Assessment & Plan: One time episode. Occurred in a car. In setting of variable BP and self dosing of Toprol. No recurrence. Extensive cardiac w/u reviewed and is benign thus far. -No additional cardiac testing at this time. -Stop self dosing meds -Stably manage BP meds with PCP -hEDS may be associated with autonomic dysfunction and theoretically could predispose her to this; expectant mgt. 2. Essential hypertension Assessment & Plan: Target BP 140/90, can also target 130/80 mmHg. -Cont toprol 50 bid -Cont norvasc 5 mg -Cont to f/u with PCP; titrate as needed. Consider diuretic as 3rd agent (such as hydrochlorothiazide, aldactone or other thiazide) -Rec sleep study -F/u on pheo w/u -If continues to have unexplained variable or rising BP then recommend renal vascular US (eval for atherosclerotic GUERRERO or fibromuscular dysplasia). Orders: - ECG 12 lead 3. Racing heart beat Assessment & Plan: Etiology unclear. In setting of sleep disruption and uncontrolled Htn. -Stabilize BP mgt -F/u in cardiology office; if still having unexplained tachycardia then would ck EM. 4. Yesica-Danlos syndrome type III Assessment & Plan: Dx'd about 10 yrs ago. She has never had a genetic test for this or other forms of EDS. -Rec she d/w PCP to be referred to a specialist to address this. Would be helpful to her and her other physicians to know what the dx is. -Some pts with hEDS (Type III) can have autonomic dysfunction; but uncommonly is associated with cardiac issues. The pattern is not like other forms that have vascular structural disorders which is common for other types of EDS such as vEDS or kEDS. Follow up in about 4 weeks (around 01/07/2025) for KATH. Subjective Referred; self. Had treatment in [place]. Had trouble getting in to see cardiology so is here in [facility] for this. Had a lot of stressors in the last 16 mos. Has a 9 yr old at home. Has in-laws who are sick and she has her own medical issues which have not been stable. Awaiting bx results of left breast to determine if has breast cancer. Has been having various Sxs for over a year. Had a primary care physician and a bolt threader providing care but no longer doing so since begun with Dr. Solares, her PCP, who most recently modified her BP regimen. A few mos ago, began having CP along with high BP, somewhat variable. Began taking more Toprol on her own. Taking extra toprol on her own PRN for high BP. SBP up to 180 mmHg. We discussed this is not a good idea. 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 She will not be doing this in the future. She will be contacting a medical provider before making any changes. One episode, while driving, felt near syncope. Pulled over due to dizziness. But did not syncopize. Pulled over and called her . But then it passed on its own. Long standing MSK pain; tramadol. Mostly for her back. Began seeing a bolt threader who prescribed her ivermectin for inflammation and possible muscle parasites. Then added low dose Naltrexone. I do not know the scientific basis for this prescribing strategy. She thinks she may have felt better but was concerned about the dosing. From a cardiac perspective ivermectin was unlikely to cause significant cardiac risk. In any case, she is not on this now. October 25; 2 hrs after going to bed, weakness up fever, pink all over, diarrhea, nausea, High BP, Pulse 120, her jaw felt tight. Possible drug reaction. Given zofran IV there. Then PCP gave her PO zofran and benadryl. Rec to stop meds and f/u with PCP. Then she found her HR elev 150 bpm. Went back to [place] ED. Took an EKG and test, and troponin. All of which were negative. Then 3rd visit to [place] ED. Feeling something's wrong. Repeated troponin, D-dimer. All tests were negative. Was rec for discharge. Then after this she was added Norvasc by her PCP and has been on this for about 8 days. I note her BP is better though not yet optimal. Long discussion about her current clinical stability. And that working closely with her PCP to manage her BP is important. By hx, sounds like essential Htn. There was a discussion about pheochromocytoma, so apparently there was labs for that which are pending. She is currently getting her anxiety treated with Klonopin; will defer that to PCP or other specialist. I feel her EKG is ok. Reviewed other cardiac testing which is quite benign and puts her at low cardiac risk. Her calcium score is zero. There were no other chest abnl noted. Her echocardiogram was normal. No sign of prior ischemic heart disease, valve disease, or pericardial dz. No sign of hypertensive he (more content not included)... Normal [facility] Immunohistochemical Stainson 12-05-2024 Immunohistochemical Stains Patient Age/Sex Location Account Attending Physician VERONICA UMAÑA 49/F OPUS [id number] Dr. Anay Lugo MD Specimen: [id number] Received: 12/05/24 Status: CARROLL Watt Num: [id number] Spec Type: BREAST BX Subm Dr: Dr. Anay Lguo MD HEADER OPERATION: Ultrasound guided breast biopsy PRE-OP DIAGNOSIS: Left breast mass x2 TISSUE SUBMITTED: A- Left breast mass, 1o'clock, 6cm from nipple, B- Left breast mass, 3o'clock, 8cm A. Ischemic Time: Unknown Fixation Time: 16 hours, 45 minutes B. Ischemic Time: Unknown Fixation Time: 16 hours, 45 minutes MICROSCOPIC DIAGNOSIS A. Breast, left, 1:00, mass, biopsy: - Benign breast tissue - see note. Note: IHC for CK5/6 and p40 support the histologic impression. B. Breast, left, 3:00, mass, biopsy: - Benign breast tissue - see note. Note: IHC for CK5/6 and p40 support the histologic impression MICROSCOPIC DESCRIPTION Slides are reviewed. GROSS DESCRIPTION Received in 2 formalin containers labeled with the patient's name and date of . Designated as: A. Left breast 2 samples-1:00 6 cm FN are 2 fregoso-white tissue cores, 1.0 cm in length by 0.1 cm in diameter each. Entirely submitted in 1 cassette. Cold ischemic time: UnknownFormalin fixation time: 16 hours, 45 minutes B. Left breast 3:00 8 cm FN BX 2 are 2 fregoso-yellow tissue cores, 0.7 cm and 0.8 cm in length by 0.1 cm in diameter. Entirely submitted in 1 cassette. Cold ischemic time: Unknown Formalin fixation time: 16 hours, 45 minutes [place] 12/05/2024 CPT:75628b9,[id number],09611c 2 Patient Age/Sex Location Account Attending Physician VERONICA UMAÑA 49/F RANDALUS [id number] Dr. Anay Lugo MD Signed (signature on file) Dr. Kimi Montero MD 12/11/24 1212 Normal [facility] Comment on above: Performed By: #### L 100.0100, L500.4050 #### [facility] [address] [facility]. [place], [place], [id number] Operative Reporton 5 Operative Report [facility] Medical Records Department [address] [place] [address] Operative Report 12/05/24 1333 MR#: [id number] Acct: [id number] Name: VERONICA UMAÑA Rep #: [id number] : 1975 49 From: Anay Lugo MD PCP: Dr. Kala Solares MD Status:REG CL Location: OPUS Operative Report (Standard) Operative Information Date of Procedure: 12/05/24 Pre-Operative Diagnosis: Left breast mass x 2 Post-Operative Diagnosis: Same Surgery/Procedure Performed: Ultrasound-guided left breast biopsy x 2 binder layer: No Type of Anesthesia: Local Procedure Start Time: 13:05 Procedure Stop Time: 13:25 Select all DRAINS/GRAFTS/IMPLANTS that apply: Implanted device Implanted device details: Bard dual ultraclip-coil at 3:00, ribbon at 1:00 Estimated Blood Loss: <5 cc Specimen collected: Yes Description of specimen(s) removed: 1. Left breast mass 1:00 6 cm from nipple, #2 left breast mass 3:00 8 cm from the nipple Description of surgery: Procedure: Left breast ultrasound-guided core biopsy x 2 Indications: 49 year-old female with hypoechoic nodules at 1:00 6 cm from nipple and 3:00 6 cm from the nipple in the left breast patient is also status post bilateral breast augmentation when she was 19.. Risk benefits were discussed the patient and she elected to proceed with ultrasound guided core biopsy with clip placement x 2 Description of procedure: Patient was brought into the ultrasound room in the left breast was marked. A timeout was completed verifying correct patient, procedure, site, specially, prior to beginning procedure. The left breast was prepped and draped in usual sterile fashion and using local anesthesia was obtained with 1% lidocaine. Both procedures were done similarly. The lesion was located with the ultrasound. Small incision was made with 11 blade to introduced the BARD MaxCore through the skin. Under ultrasound guidance multiple core samples were obtained using then 14-gauge BARD MaxCore and sent in formalin for pathology. The Bard dual ultra-(1:00 ribbon clip and 3:00 coil clip) clip was then deployed into the biopsy cavity under ultrasound guidance and a picture was taken. Upon completion procedure hemostasis was obtained and a Steri-Strip and OpSite were placed. Patient was then taken to the mammography suite for clip verification. The clip was verified. The patient tolerated the procedure well and was discharged from the breast imaging department good c ondition. complications: none Surgical Findings: See operative report Complications Complications: No 12/06/24 0906 Cosigner Signature (if applicable): CC: Dr. Kala Solares MD; Dr. Anay Lugo MD Signed Normal [facility] US Breast Biopsy 1st Lesiono n 12-05-2024 US Breast Biopsy 1st Lesion [facility] Imaging Services [address] [place] [address] US Breast Biopsy 1st Lesion MR#: [id number] Acct: [id number] Name: VERONICA UMAÑA Rep #: [id number] : 1975 F 49 From: Kamlesh chin MD PCP: Dr. Kala Solares MD Status: REG CLI Study: US Breast Biopsy 1st Lesion Date of Exam: 07/31 Exam# [id number] Ordering Dr: Veronica Gupta PROCEDURE: US BREAST BIOPSY 1ST LESION 12/05/2024 REASON FOR EXAM: F, Age 49 y/o , LEFT BREAST MASS X 2 COMPARISON: Prior exam(s) dating back to . TECHNIQUE: Under direct sonographic guidance, the surgeon performed core biopsies of the lesions seen at the 1 o'clock and 3 o'clock position in the left breast. FINDINGS: ULTRASOUND: Ultrasound was targeted to the left breast . Successful core biopsies. US/US Breast Biopsy 1st Lesion IMPRESSION: Successful core biopsies. BI-RADS 0: INCOMPLETE - NEED ADDITIONAL IMAGING EVALUATION. Reading Location: [place] [address] CC: JANNETH Gupta; Dr. Kala Solares MD Sports Management Intern: Signed Normal [facility] CTA Abdomen W/WO Contraston 12-04-2024 CTA Abdomen W/WO Contrast [facility] Imaging Services [address] [place] [address] [id number] CTA Abdomen W/WO Contrast MR#: [id number] Acct: [id number] Name: VERONICA UMAÑA Rep #: [id number] : 1975 F 49 From: Tommie Cote MD PCP: Dr. Kala Solares MD Status: REG CLI Study: CTA Abdomen W/WO Contrast Date of Exam: Exam# [id number] Ordering Dr: Kala Solares MD ADDENDUM by Dr. Tommie Cote MD on 12/04/24 at 1622 Further evaluation of the study was performed. There is evidence of subtle low-density thrombus that is persistent within the right renal vein and IVC on images 33 through 49 as well as low-density thrombus within the right portal vein. However, no delayed images were performed to determine if this low-density thrombus persists. Impression there is evidence to suspect low-density thrombus within the right renal vein, and right portal vein. Reading Location: [facility] 12/04/24 1623 Date cc: Dr. Kala Solares MD * Signed PROCEDURE: CTA ABDOMEN W/WO CONTRAST 12/04/2024 REASON FOR EXAM: RESISTANT HYPERTENSION TECHNIQUE: CTA ABDOMEN W/WO CONTRAST Multiplanar Sagittal and Coronal images were obtained. 3D and or MIPS post processing was performed CONTRAST: Isovue 370 VOLUME: 100 mL One or more dose reduction techniques were used (e.g., Automated exposure control, adjustment of the mA and/or kV according to patient size, use of iterative reconstruction technique). RADIATION DOSE SUMMARY: CTDlvol: 41.42 mGy DLP: 679.34 mGycm COMPARISON: None FINDINGS: Aorta: Tapers normally without aneurysm or dissection. No atherosclerotic disease. Iliac Arteries: Normal course and caliber. Celiac: Widely patent, no significant atherosclerotic disease or stenosis SMA: Widely patent, no significant atherosclerotic disease or stenosis ROBERT : Not visualized Right Renal: Widely patent, no significant atherosclerotic disease or stenosis Left Renal: Widely patent, no significant atherosclerotic disease or stenosis Lung bases are clear, bilateral breast implants free of complication. Liver shows fatty infiltration without a discrete lesion. Gallbladder, spleen, pancreas, adrenals and kidneys are normal in appearance. No free intraperitoneal fluid, air, or suspicious adenopathy. Bowel loops are unremarkable, no evidence of ileus obstruction or inflammation. Uterus is present and enlarged suggesting underlying fibroids. No suspicious adnexal mass or free fluid. The bladder is normal. No fracture or suspicious osseous lesion CT/CTA Abdomen W/WO Contrast IMPRESSION: No CTA evidence to suspect renal artery stenosis as cause of hypertension Normal vascular structures noted on this study, normal tapering of the aorta without aneurysm or dissection there is no significant atherosclerotic disease or evidence of occlusion or stenosis Fatty liver, no discrete lesion Enlarged likely fibroid uterus Reading Location: [facility] CC: Dr. Kala Solares MD Sports Management Intern: Signed Normal [facility] Plasma renin activityOrdered By: Kala Solares on 12-04-2024 Renin (P) [Catalytic activity/Vol] 2.712 ng/mL/hr 0.167-5.38 0 [facility] Surgery Visit Reporton 11-30 Surgery Visit Report [facility] [address] [place] [address] OFFICE VISIT Date of Service: 11/30/24 MR#: [id number] Acct: [id number] Name: VERONICA UMAÑA Rep #: [id number] : 1975 Provider: Dr. 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 Normal [facility] Coronary Angiography CTon Coronary Angiography CT [facility] Imaging Services [address] [place] [address] 11/27/24 1645 MR#: [id number] Acct: [id number] Name: VERONICA UMAÑA Rep #: [id number] : 1975 49 From: Dillon Florez MD [...] Florez MD; Dr. Kala Solares MD Signed [facility] Echo Completeon 11-27-2024 Echo [facility] Cardiovascular Services [address] [place] [address] Echo Complete 11/27/24 0714 MR#: [id number] Acct: [id number] Name: VERONICA UMAÑA Rep #: [id number] : 1975 49 From: Dillon Florez MD Attending Dr: Dr. Kala Solares MD Status: REG [facility] Ordering Dr: Kala Solares MD Date: 11/27/24 Location: [facility] Sex: F C Admitted: Reason For Study [...] Solares Performed By: Kya Rivera, MAYITO, RVT 11/27/241040 Date Dillon Florez MD CC: Dr. Kala Solares MD Date Dictated: 11/27/24713 Date Transcribed: 11/27/241040 Sports Management Intern: Signed Normal [facility] Echocardiogram study reportO rdered By: Dillon Florez on 11-27-2024 Study report [facility] Cardiovascular Services [address] [place] [address] Echo Complete 11/27/24713 MR#: [id number] Acct: [id number] Name: VERONICA UMAÑA Rep #:[id number] : 1975 49 From: Dillon Ferro Attending Dr: Dr. Kala Solares MD Status: REG CLI Ordering Dr: Kala Solares MD Date: 0 11/27/24 Location: [facility] Sex: F C Admitted: Reason For Study [...] cm RVDd: 3.0 cm FS: 39.0 % __ LAV(MOD-bp): 50.1 ml LVAd ap4: 26.1 cm2 [...] 5.9 E/E' med: 6.0 MV E/A: 1.0 __ MV V2 max: 77.6 cm/sec MV P1/2t [...] Kya Rivera, MAYITO, RVT 11/27/24 1041 Date _ Dillon Florez MD CC: Dr. Kala Solares MD ~ Date Dictated: 11/27/24 07 Date Transcribed: 11/27/24 104 Sports Management Intern: Signed [facility] Work Phone: Limited Chest CT Cardiac Onl yon 11-27-[address] Cardiac Only [facility] Imaging Services [address] [place], [place] [id number] Limited Chest CT Cardiac Only MR#: [id number] Acct: [id number] Name: VERONICA UMAÑALATAMurphy Rep #: [id number] : 1975 F 49 From: Kamlesh chin MD PCP: Dr. Kala Solares MD Status: [facility] Study: Limited Chest CT Cardiac Only Date of Exam: Exam# [id number] Ordering Dr: Kala Solares MD PROCEDURE: LIMITED [...] significant coronary artery calcification seen. Reading Location: [id number] CC: Dr. Kala Solares MD Sports Management Intern: Signed Normal [facility] Breast Limited Unilateralon 11-26-2024 Breast Limited Unilateral [facility] Imaging Services [address] [place] [address] Breast Limited Unilateral MR#: [id number] Acct: [id number] Name: VERONICA UMAÑA Rep #: [id number] : 1975 F 49 From: Hanna Mann PCP: Dr. Kala Solares MD Status: REG CLI Study: Breast Limited Unilateral Date of Exam: Exam# [id number] Ordering Dr: Kala Solares MD PROCEDURE: BREAST [...] SUSPICIOUS ABNORMALITY. RECOMMENDATION: Biopsy Recommended Reading Location: [id number] CC: Dr. Kala Solares MD Sports Management Intern: Signed Normal [facility] Breast imaging reportOrdered By: Hanna Villalobos on 11-26-2024 Study report [facility] Imaging Services [address] [place] [address] DIAG MAMM W/CAD, BILAT MR#: [id number] Acct: [id number] Name: VERONICA UMAÑA Rep #: [id number] : 1975 F 49 From: Jose Angel Villalobos DO PCP: Dr. Kala Solares MD Status: REG CLI Study:DIAG MAMM W/CAD, BILAT Date of Exam: 11/26/24 Exam# [id number] Ordering Dr: Ahsan Solares MD EXAM: DIAG [...] be mailed to the patient. Reading Location: [facility] CC: Dr. Kala Solares MD ~ Sports Management Intern: Signed [facility] DIAG MAMM W/CAD, BILATon DIAG MAMM W/CAD, BILAT [facility] Imaging Services [address] [place], [place] [id number] DIAG MAMM W/CAD, BILAT MR#: [id number] Acct: [id number] Name: VERONICA UMAÑA Rep #: [id number] : 1975 F 49 From: Hanna Mann PCP: Dr. Kala Solares MD Status: [facility] Study: DIAG MAMM W/CAD, BILAT Date of Exam: 11/26/24 Exam# [id number] Ordering Dr: Kala Solares MD EXAM: DIAG [...] be mailed to the patient. Reading Location: [id number] CC: Dr. Kala Solares MD Sports Management Intern: Signed Normal [facility] 12 Lead EKGon 11-05-2024 12 Lead EKG [facility] Cardiovascular Services [address] [place] [address] 12 Lead EKG 11/05/24 1555 MR#: [id number] Acct: [id number] Name: VERONICA UMAÑA Rep #: [id number] : 1975 49 From: Brandy Meza MD Attending Dr: Status: DEP Ordering Dr: Victor Hugo Suh DO Date: [...] : 403 ms Sinus rhythm with short KS Otherwise normal ECG Confirmed by Brandy Meza ([id number]), scientific publications editor VERONICA ESCOBAR ([id number]) on 11/06/2024 9:56:44 AM Referred By: Victor Hugo Suh Confirmed By: Brandy Meza 11/06/24 0956 Date Brandy Meza MD CC: Dr. Victor Hugo Suh, DO; No Primary Care Physician Signed Normal [facility] Absolute lymphocyte countOrd ered By: Victor Hugo Suh on 11-05-2024 Lymphocytes Auto (Unsp spec) [#/Vol] 1.60 10*3/uL 0.83-4.51 [facility] Absolute neutrophil countOrd ered By: Victor Hugo Suh on 11-05-2024 Neutrophils (Bld) [#/Vol] 4.3 10*3/uL 2.0-7.7 [facility] Anion gap in Serum or Plasma Ordered By: Victor Hugo Suh on 11-05-2024 Anion gap [Moles/Vol] 12 mmol/L 5-15 [facility] Automated lymphocyte count a s percentage of total leukocytesOrdered By: Victor Hugo Suh on 11-05-2024 Lymphocytes/100 WBC Auto (Unsp spec) 24.7 % 19-41 [facility] BUN/creatinine ratioOrdered By: Victor Hugo Suh on 11-05-2024 Urea nitrogen/Creatinine [Mass ratio] 23.7 mg/mg High 10- [facility] Basic Metabolic Profile (BMP )on 11-05-2024 BUN/CRE 23.7 RATIO High 03-25 [facility] Comment on above: Performed By: #### L 499.0042 #### [facility] [address] [place], [address] Calcium [Mass/Vol] 9.7 mg/dL Normal 7.6-11.0 [facility] Comment on above: Performed By: #### L 499.0042 #### [facility] [address] [place], [address] Chloride [Moles/Vol] 103 mmol/L Normal 98-[address] [facility] Comment on above: Performed By: #### L 499.0042 #### [facility] [address] [place], [address] CO2 [Moles/Vol] 23.7 mmol/L Normal 21.0-32.0 [facility] Comment on above: Performed By: #### L 499.0042 #### [facility] [address] [place], [address] Creatinine [Mass/Vol] 0.69 mg/dL Low 0.70-1.20 [facility] Comment on above: Performed By: #### L 499.0042 #### [facility] [address] [place], [address] ECRCL 103.41 ml/min Normal 50-250 [facility] Comment on above: Performed By: #### L 499.0042 #### [facility] [address] [place], [address] GAP 12 Normal 5-15 [facility] Comment on above: Performed By: #### L 499.0042 #### [facility] [address] [place], [address] GFR/1.73 sq M.predicted among non-blacks MDRD (S/P/Bld) [Vol rate/Area] 105 mL/min/{1.73_m2} Normal >60 [facility] Comment on above: Result Comment: mL/m in/1.73m2 CKD-EPI Creatinine Equation (2020) Performed By: #### L 499.0042 #### [facility] [address] [place], [address] Glucose [Mass/Vol] 109 mg/dL High 70-99 [facility] Comment on above: Performed By: #### L 499.0042 #### [facility] [address] [place], [address] Potassium [Moles/Vol] 3.9 mmol/L Normal 3.3-5.1 [facility] Comment on above: Performed By: #### L 499.0042 #### [facility] [address] [place], [address] Sodium [Moles/Vol] 139 mmol/L Normal 133-145 [facility] Comment on above: Performed By: #### L 499.0042 #### [facility] [address] [place], [address] Urea nitrogen [Mass/Vol] 16 mg/dL Normal 4-19 [facility] Comment on above: Performed By: #### L 499.0042 #### [facility] [address] [place], [address] Basophil percentageOrdered B y: Victor Hugo Suh on 11-05-2024 Basophils/100 WBC (Bld) 0.8 % 0-1 [facility] CBC W/Diff, Automatedon Absolute Lymph 1.60 X10 3/uL Normal 0.83-4.51 [facility] Comment on above: Performed By: #### L 499.0042 #### [facility] [address] [place], [address] Absolute Neut 4.3 X10 3/uL Normal 2.0-7.7 [facility] Comment on above: Performed By: #### L 499.0042 #### [facility] [address] [place], [address] Basophils/100 WBC (Bld) 0.8 % Normal 0-1 [facility] Comment on above: Performed By: #### L 499.0042 #### [facility] [address] [place], [address] Eosinophils/100 WBC (Bld) 0.5 % Normal 0-5 [facility] Comment on above: Performed By: #### L 499.0042 #### [facility] [address] [place], [address] Erythrocyte distribution width (RBC) [Ratio] 12.5 % Normal 11.6-14.6 [facility] Comment on above: Performed By: #### L 499.0042 #### [facility] [address] [place], [address] Hematocrit (Bld) [Volume fraction] 39.4 % Normal 37-47 [facility] Comment on above: Performed By: #### L 499.0042 #### [facility] [address] [place], [address] Hemoglobin (Bld) [Mass/Vol] 13.4 g/dL Normal 12.0-15.0 [facility] Comment on above: Performed By: #### L 499.0042 #### [facility] [address] [place], [address] IG% 0.500 Normal 0.0-0.9 [facility] Comment on above: Result Comment: IG% - Immature Granulocytes (promyelocytes, myelocytes and metamyelocytes) > 1% indicates that a LEFT SHIFT is Present. Performed By: #### L 499.0042 #### [facility] [address] [place], [address] Lymphocytes/100 WBC (Bld) 24.7 % Normal 19-41 [facility] Comment on above: Performed By: #### L 499.0042 #### [facility] [address] [place], [address] MCH (RBC) [Entitic mass] 31.9 pg Normal 27.0-32.0 [facility] Comment on above: Performed By: #### L 499.0042 #### [facility] [address] [place], [address] MCHC (RBC) [Mass/Vol] 34.0 g/dL Normal 32-36 [facility] Comment on above: Performed By: #### L 499.0042 #### [facility] [address] [place], [address] MCV (RBC) [Entitic vol] 93.8 fL Normal 81-99 [facility] Comment on above: Performed By: #### L 499.0042 #### [facility] [address] [place], [address] Monocytes/100 WBC (Bld) 7.7 % Normal 0-10 [facility] Comment on above: Performed By: #### L 499.0042 #### [facility] [place], [address] Neutrophils/100 WBC (Bld) 65.8 % Normal 47-70 [facility] Comment on above: Performed By: #### L 499.0042 #### [facility] [address] [place], [address] Nucleated RBC (Bld) [#/Vol] 0 10*3/uL Normal 0-5 [facility] Comment on above: Performed By: #### L 499.0042 #### [facility] [address] [place], [address] Platelet mean volume (Bld) [Entitic vol] 9.9 fL Normal 6.2-12.0 [facility] Comment on above: Performed By: #### L 499.0042 #### [facility] [address] [place], [address] Platelets (Bld) [#/Vol] 290 10*3/uL Normal 150-450 [facility] Comment on above: Performed By: #### L 499.0042 #### [facility] [address] [place], [address] RBC (Bld) [#/Vol] 4.20 10*6/uL Normal 4.2-5.4 [facility] Comment on above: Performed By: #### L 499.0042 #### [facility] [address] [place], [address] RDW SD 42.7 fl Normal 35.1-43.9 [facility] Comment on above: Performed By: #### L 499.0042 #### [facility] [address] [place], [address] WBC (Bld) [#/Vol] 6.5 10*3/uL Normal 4.4-11.0 [facility] Comment on above: Performed By: #### L 499.0042 #### [facility] [address] [place], [address] Carbon dioxide, total [Moles /volume] in Central venous bloodOrdered By: Victor Hugo Suh on 11-05-2024 CO2 [Moles/Vol] 23.7 mmol/L 21.0-32.0 [facility] Chest PA and Lateralon 11-05 Chest PA and Lateral [facility] Imaging Services [address] [place], [place] [address] Chest PA and Lateral MR#: [id number] Acct: [id number] Name: VERONICA UMAÑA Rep #: [id number] : 1975 F 49 From: Bhanu Becker MD PCP: Care Physician,No Primary Status: [facility] ER Study: Chest PA and Lateral Date of Exam: 11/05/24 Exam# [id number] Ordering Dr: Victor Hugo Shu DO PROCEDURE: CHEST PA AND LATERAL 11/05/2024 REASON FOR EXAM: CHEST PAIN TECHNIQUE: Frontal and lateral views of the chest. COMPARISON: None FINDINGS: Hardware: None Heart: The heart size is normal. Mediastinum: The mediastinal contour is unremarkable. Lungs: The lungs are clear. Bones: The bones are unremarkable. RAD/Chest PA and Lateral IMPRESSION: No acute cardiopulmonary abnormality. Reading Location: [id number] CC: Dr. Victor Hugo Suh, DO; No Primary Care Physician Sports Management Intern: Signed Normal [facility] Chloride assayOrdered By: Luis Suh on 11-05-2024 Chloride [Moles/Vol] 103 mmol/L 98-[address] [facility] D-Dimer Quantitative (DVT/PE )on 11-05-2024 D-DIMER QUANT < 0.27 Low 0.27-0.49 [facility] Comment on above: Result Comment: NORM AL D-Dimer level (<0.50) indicates no DVT or PE. Performed By: #### L 499.0042 #### [facility] [address] [facility] 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 Normal [facility] Eosinophil percentageOrdered By: Victor Hugo Suh on 11-05-2024 Eosinophils/100 WBC (Bld) 0.5 % 0-5 [facility] Erythrocyte distribution wid th ratioOrdered By: Victor Hugo Suh on 11-05-2024 Erythrocyte distribution width (RBC) [Ratio] 12.5 % 11.6-14.6 [facility] Erythrocyte distribution wid th standard deviationOrdered By: Victor Hugo Campoverde on 11-05-2024 Erythrocyte distribution width (RBC) [Ratio] 42.7 fl 35.1-43.9 [facility] Glomerular filtration rate ( GFR) estimation/1.73 sq m using serum, plasma, or whole bOrdered By: Victor Hugo Suh on 11-05-2024 GFR/1.73 sq M.predicted among non-blacks MDRD (S/P/Bld) [Vol rate/Area] 105 mL/min/{1.73_m2} >60 [facility] Comment on above: mL/min/1.73m2 CKD-EP I Creatinine Equation (2020) Hematocrit Auto (Bld) [Volum e fraction]Ordered By: Victor Hugo Suh on 11-05-2024 Hematocrit (Bld) [Volume fraction] 39.4 % 37-47 [facility] Hemoglobin measurementOrdere d By: Victor Hugo Vikash on 11-05-2024 Hemoglobin (Bld) [Mass/Vol] 13.4 g/dL 12.0-15.0 [facility] Immature granulocytes/100 WB C Auto (Bld)Ordered By: Victor Hugopeace Suh on 11-05-2024 Immature granulocytes/100 WBC (Bld) 0.500 % 0.0-0.9 [facility] Comment on above: IG% - Immature Granu locytes (promyelocytes, myelocytes and metamyelocytes) > 1% indicates that a LEFT SHIFT is Present. L499.0042on 11-05-2024 Trop T High Sen < 6 Normal <=14 [facility] Comment on above: Performed By: #### L 499.0042 #### [facility] [address] [place], [place], [address] L501.4021on 11-05-2024 Trop T High Sen < 6 Normal <=14 [facility] Comment on above: Performed By: #### L 499.0042 #### [facility] [address] [place], [place], [address] MCV (mean corpuscular volume ) determinationOrdered By: Victro Hugo Suh on 11-05-2024 MCV (RBC) [Entitic vol] 93.8 fL 81-99 [facility] Magnesiumon 11-05-2024 Magnesium [Mass/Vol] 2.3 mg/dL High 1.5-2.[address] [facility] Comment on above: Performed By: #### L 499.0042 #### [facility] [address] [place], [address] Magnesium measurement (mass/ volume)Ordered By: Victor Hugo Suh on 11-05-2024 Magnesium (Unsp spec) [Mass/Vol] 2.3 mg/dL High 1.5-2.2 [facility] Mean corpuscular hemoglobin (MCH) determinationOrdered By: Victor Hugo Suh on 11-05-2024 MCH (RBC) [Entitic mass] 31.9 pg 27.0-32.0 [facility] Mean corpuscular hemoglobin concentration (MCHC) determinationOrdered By: Victor Hugo Suh on 11-05-2024 MCHC (RBC) [Mass/Vol] 34.0 g/dL 32-36 [facility] Mean platelet volume determi nationOrdered By: Victor Hugo Suh on 11-05-2024 Platelet mean volume (Bld) [Entitic vol] 9.9 fL 6.2-12.0 [facility] Monocyte percentageOrdered B y: Victor Hugo Suh on 11-05-2024 Monocytes/100 WBC (Bld) 7.7 % 0-10 [facility] Neutrophil percentageOrdered By: Victor Hugo Suh on 11-05-2024 Neutrophils/100 WBC (Bld) 65.8 % 47-70 [facility] Nucleated red blood cell per centageOrdered By: Victor Hugo Suh on 11-05-2024 Nucleated RBC/100 WBC (Bld) [Ratio] 0 % 0-5 [facility] Platelet countOrdered By: Luis Suh on 11-05-2024 Platelets (Bld) [#/Vol] 290 10*3/uL 150-450 [facility] Potassium measurement (mass/ volume)Ordered By: Victor Hugo Suh on 11-05-2024 Potassium (Unsp spec) [Mass/Vol] 3.9 mmol/L 3.3-5.1 [facility] RBC Auto (Bld) [#/Vol]Ordere d By: Victor Hugo Suh on 11-05-2024 RBC (Bld) [#/Vol] 4.20 10*6/uL 4.2-5.4 [facility] Serum creatinine measurement (mass/volume)Ordered By: Victor Hugo Suh on 11-05-2024 Creatinine [Mass/Vol] 0.69 mg/dL Low 0.70-1.20 [facility] Serum glucose measurement (m ass/volume)Ordered By: Victor Hugo Suh on 11-05-2024 Glucose [Mass/Vol] 109 mg/dL High 70-99 [facility] Serum or plasma calcium herberth urement (mass/volume)Ordered By: Victor Hugo Campoverde on 11-05-2024 Calcium [Mass/Vol] 9.7 mg/dL 7.6-11.0 [facility] Serum or plasma urea nitroge n measurement (mass/volume)Ordered By: Victor Hugo Suh on 11-05-2024 Urea nitrogen [Mass/Vol] 16 mg/dL 4-19 [facility] Sodium levelOrdered By: Chad Suh on 11-05-2024 Sodium [Moles/Vol] 139 mmol/L 133-145 [facility] TSH DL <= 0.005 mIU/L QnOrde red By: Victor Hugo Suh on 11-05-2024 TSH Qn 0.524 uIU/mL 0.300-4.20 0 [facility] Thyroid Stim Hormone (TSH)on 11-05-2024 TSH 0.524 uIU/mL Normal 0.300-4.20 0 [facility] Comment on above: Performed By: #### L 499.0042 #### [facility] [address] [place], [place], [id number] Troponin T.cardiac [Mass/vol ume] in Serum or Plasma by High sensitivity methodOrdered By: Victor Hugo Suh on 11-05-2024 Troponin T.cardiac High sensitivity method [Mass/Vol] < 6 ng/L <14 [facility] Troponin T.cardiac High sensitivity method [Mass/Vol] < 6 ng/L <14 [facility] Comment on above: Delta: 7 on 10/26/24 -623 White blood cell (WBC) count Ordered By: Victor Hugo Suh on 11-05-2024 WBC (Bld) [#/Vol] 6.5 10*3/uL 4.4-11.0 [facility] 12 Lead EKGon 10-31-2024 12 Lead EKG [facility] [address] [place] [address] 12 Lead EKG 10/31/24 0753 MR#: [id number] Acct: [id number] Name: VERONICA UMAÑA Rep #: [id number] : 1975 49 From: Jennyfer Espinoza MD Attending Dr: Status: DEP ER Ordering Dr: oJse Alexis MD Date: 10/31/24 Location: ED Sex: [...] Normal ECG Confirmed by JENNYFER ESPINOZA ([id number]), scientific publications editor VERONICA ESCOBAR ([id number]) on 11/05/2024 8:05:56 AM Referred By: Confirmed By: JENNYFER ESPINOZA 11/05/24 0805 Date Jennyfer Espinoza MD CC: RAYRAY Aguilar; Dr. Jose Alexis MD Signed Normal [facility] Absolute lymphocyte countOrd ered By: Jose Alexis on 10-31-2024 Lymphocytes Auto (Unsp spec) [#/Vol] 1.57 10*3/uL 0.83-4.51 [facility] Absolute neutrophil countOrd ered By: Jose Alexis on 10-31-2024 Neutrophils (Bld) [#/Vol] 7.0 10*3/uL 2.0-7.7 [facility] Alcohol, Blood (Medical)-Ser umon 10-31-2024 SERUM ETOH < 10.1 Normal <=10.0 [facility] Comment on above: Result Comment: This test is for medical purposes only. The legal definition of intoxication varies according to local law. Performed By: #### L 100.0100, L500.4050 #### [facility] [address] [place], [place], [id number] Amphetamine detection with 1 000 ng/mL as cutoffOrdered By: Jose Alexis on 10-31-2024 Amphetamines Screen method >1000 ng/mL Ql (U) Negative < 200 ng/mL [facility] Anion gap in Serum or Plasma Ordered By: Jose Alexis on 10-31-2024 Anion gap [Moles/Vol] 12 mmol/L 5-15 [facility] Automated lymphocyte count a s percentage of total leukocytesOrdered By: Jose Alexis on 10-31-2024 Lymphocytes/100 WBC Auto (Unsp spec) 16.8 % Low 19-41 [facility] BUN/creatinine ratioOrdered By: Jose Alexis on 10-31-2024 Urea nitrogen/Creatinine [Mass ratio] 14.4 mg/mg 10-20 [facility] Basophil percentageOrdered B y: Jose Alexis on 10-31-2024 Basophils/100 WBC (Bld) 0.6 % 0-1 [facility] Bilirubin, totalOrdered By: Jose Alexis on 10-31-2024 Bilirubin [Mass/Vol] 0.86 mg/dL 0.00-1.[address] [facility] CBC W/Diff, Automatedon 10-05 Absolute Lymph 1.57 X10 3/uL Normal 0.83-4.51 [facility] Comment on above: Performed By: #### L 100.0100, L500.4050 #### [facility] [address] [place], [address] Absolute Neut 7.0 X10 3/uL Normal 2.0-7.7 [facility] Comment on above: Performed By: #### L 100.0100, L500.4050 #### [facility] [address] [place], [address] Basophils/100 WBC (Bld) 0.6 % Normal 0-1 [facility] Comment on above: Performed By: #### L 100.0100, L500.4050 #### [facility] [address] [place], [address] Eosinophils/100 WBC (Bld) 0.1 % Normal 0-5 [facility] Comment on above: Performed By: #### L 100.0100, L500.4050 #### [facility] [address] [place], [address] Erythrocyte distribution width (RBC) [Ratio] 12.6 % Normal 11.6-14.6 [facility] Comment on above: Performed By: #### L 100.0100, L500.4050 #### [facility] [address] [place], [address] Hematocrit (Bld) [Volume fraction] 38.9 % Normal 37-47 [facility] Comment on above: Performed By: #### L 100.0100, L500.4050 #### [facility] [address] [place], [address] Hemoglobin (Bld) [Mass/Vol] 13.5 g/dL Normal 12.0-15.0 [facility] Comment on above: Performed By: #### L 100.0100, L500.4050 #### [facility] [address] [place], [address] IG% 0.500 Normal 0.0-0.9 [facility] Comment on above: Result Comment: IG% - Immature Granulocytes (promyelocytes, myelocytes and metamyelocytes) > 1% indicates that a LEFT SHIFT is Present. Performed By: #### L 100.0100, L500.4050 #### [facility] [address] [place], [address] Lymphocytes/100 WBC (Bld) 16.8 % Low 19-41 [facility] Comment on above: Performed By: #### L 100.0100, L500.4050 #### [facility] [address] [place], [address] MCH (RBC) [Entitic mass] 32.2 pg High 27.0-32.0 [facility] Comment on above: Performed By: #### L 100.0100, L500.4050 #### [facility] [address] [place], [address] MCHC (RBC) [Mass/Vol] 34.7 g/dL Normal 32-36 [facility] Comment on above: Performed By: #### L 100.0100, L500.4050 #### [facility] [address] [place], [address] MCV (RBC) [Entitic vol] 92.8 fL Normal 81-99 [facility] Comment on above: Performed By: #### L 100.0100, L500.4050 #### [facility] [address] [place], [address] Monocytes/100 WBC (Bld) 7.4 % Normal 0-10 [facility] Comment on above: Performed By: #### L 100.0100, L500.4050 #### [facility] [address] [place], [address] Neutrophils/100 WBC (Bld) 74.6 % High 47-70 [facility] Comment on above: Performed By: #### L 100.0100, L500.4050 #### [facility] [address] [place], [address] Nucleated RBC (Bld) [#/Vol] 0 10*3/uL Normal 0-5 [facility] Comment on above: Performed By: #### L 100.0100, L500.4050 #### [facility] [address] [place], [address] Platelet mean volume (Bld) [Entitic vol] 9.9 fL Normal 6.2-12.0 [facility] Comment on above: Performed By: #### L 100.0100, L500.4050 #### [facility] [address] [place], [address] Platelets (Bld) [#/Vol] 314 10*3/uL Normal 150-450 [facility] Comment on above: Performed By: #### L 100.0100, L500.4050 #### [facility] [address] [place], [address] RBC (Bld) [#/Vol] 4.19 10*6/uL Low 4.2-5.4 [facility] Comment on above: Performed By: #### L 100.0100, L500.4050 #### [facility] [address] [place], [address] RDW SD 42.2 fl Normal 35.1-43.9 [facility] Comment on above: Performed By: #### L 100.0100, L500.4050 #### [facility] [address] [place], [address] WBC (Bld) [#/Vol] 9.4 10*3/uL Normal 4.4-11.0 [facility] Comment on above: Performed By: #### L 100.0100, L500.4050 #### [facility] [address] [place], [address] Carbon dioxide, total [Moles /volume] in Central venous bloodOrdered By: Jose Alexis on 10-31-2024 CO2 [Moles/Vol] 23.6 mmol/L 21.0-32.0 [facility] Chloride assayOrdered By: Lex melissa Linnetterajeev on 10-31-2024 Chloride [Moles/Vol] 101 mmol/L 98-[address] [facility] Comprehensive Metabolic Prof ilon 10-31-2024 Albumin [Mass/Vol] 4.6 g/dL Normal 3.5-5.0 [facility] Comment on above: Performed By: #### L 100.0100, L500.4050 #### [facility] [address] [place], [address] Albumin/Globulin [Mass ratio] 1.8 {ratio} Normal 0.9-2.4 [facility] Comment on above: Performed By: #### L 100.0100, L500.4050 #### [facility] [address] [place], [address] ALK PHOS 65 U/L Normal 35-104 [facility] Comment on above: Performed By: #### L 100.0100, L500.4050 #### [facility] [address] [place], [address] ALT [Catalytic activity/Vol] 33 U/L Normal <=34 [facility] Comment on above: Performed By: #### L 100.0100, L500.4050 #### [facility] [address] [place], [address] AST [Catalytic activity/Vol] 22 U/L Normal <=31 [facility] Comment on above: Performed By: #### L 100.0100, L500.4050 #### [facility] [address] [place], [address] Bilirubin [Mass/Vol] 0.86 mg/dL Normal 0.00-1.[address] [facility] Comment on above: Performed By: #### L 100.0100, L500.4050 #### [facility] [address] [place], [address] BUN/CRE 14.4 RATIO Normal 10-20 [facility] Comment on above: Performed By: #### L 100.0100, L500.4050 #### [facility] [address] [place], [address] Calcium [Mass/Vol] 9.7 mg/dL Normal 7.6-11.0 [facility] Comment on above: Performed By: #### L 100.0100, L500.4050 #### [facility] [address] [place], [address] Chloride [Moles/Vol] 101 mmol/L Normal 98-[address] [facility] Comment on above: Performed By: #### L 100.0100, L500.4050 #### [facility] [address] [place], [address] CO2 [Moles/Vol] 23.6 mmol/L Normal 21.0-32.0 [facility] Comment on above: Performed By: #### L 100.0100, L500.4050 #### [facility] [address] [place], [address] Creatinine [Mass/Vol] 0.60 mg/dL Low 0.70-1.20 [facility] Comment on above: Performed By: #### L 100.0100, L500.4050 #### [facility] [address] [place], [address] ECRCL 116.86 ml/min Normal 50-250 [facility] Comment on above: Performed By: #### L 100.0100, L500.4050 #### [facility] [address] [place], [address] GAP 12 Normal 5-15 [facility] Comment on above: Performed By: #### L 100.0100, L500.4050 #### [facility] [address] [place], [address] GFR/1.73 sq M.predicted among non-blacks MDRD (S/P/Bld) [Vol rate/Area] 108 mL/min/{1.73_m2} Normal >60 [facility] Comment on above: Result Comment: mL/m in/1.73m2 CKD-EPI Creatinine Equation (2020) Performed By: #### L 100.0100, L500.4050 #### [facility] [address] [place], [address] Globulin (S) [Mass/Vol] 2.5 g/dL Normal 2.2-4.2 [facility] Comment on above: Performed By: #### L 100.0100, L500.4050 #### [facility] [address] [place], [address] Glucose [Mass/Vol] 133 mg/dL High 70-99 [facility] Comment on above: Performed By: #### L 100.0100, L500.4050 #### [facility] [address] [place], [address] Potassium [Moles/Vol] 3.8 mmol/L Normal 3.3-5.1 [facility] Comment on above: Performed By: #### L 100.0100, L500.4050 #### [facility] [address] [place], [address] Sodium [Moles/Vol] 137 mmol/L Normal 133-145 [facility] Comment on above: Performed By: #### L 100.0100, L500.4050 #### [facility] [address] [place], [address] T PROT 7.1 g/dL Normal 5.9-8.4 [facility] Comment on above: Performed By: #### L 100.0100, L500.4050 #### [facility] [address] [place], [address] Urea nitrogen [Mass/Vol] 9 mg/dL Normal 4-19 [facility] Comment on above: Performed By: #### L 100.0100, L500.4050 #### [facility] [address] [place], [address] Emergency Department Summary on 10-31-2024 Emergency Department Summary [facility] Medical Records Department [address] [place] [address] Emergency Department Summary 10/31/24 MR#: [id number] Acct: [id number] Name: VERONICA UMAÑA Rep #: [id number] : 1975 49 From: Jose Alexis MD [...] 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 Normal [facility] Eosinophil percentageOrdered By: Jose Alexis on 10-31-2024 Eosinophils/100 WBC (Bld) 0.1 % 0-5 [facility] Erythrocyte distribution wid th ratioOrdered By: Jose Alexis on 10-31-2024 Erythrocyte distribution width (RBC) [Ratio] 12.6 % 11.6-14.6 [facility] Erythrocyte distribution wid th standard deviationOrdered By: Jose Alexis on 10-31-2024 Erythrocyte distribution width (RBC) [Ratio] 42.2 fl 35.1-43.9 [facility] Glomerular filtration rate ( GFR) estimation/1.73 sq m using serum, plasma, or whole bOrdered By: Jose Alexis on 10-31-2024 GFR/1.73 sq M.predicted among non-blacks MDRD (S/P/Bld) [Vol rate/Area] 108 mL/min/{1.73_m2} >60 [facility] Comment on above: mL/min/1.73m2 CKD-EP I Creatinine Equation (2020) Hematocrit Auto (Bld) [Volum e fraction]Ordered By: Jose Alexis on 10-31-2024 Hematocrit (Bld) [Volume fraction] 38.9 % 37-47 [facility] Hemoglobin measurementOrdere d By: Jose Alexis on 10-31-2024 Hemoglobin (Bld) [Mass/Vol] 13.5 g/dL 12.0-15.0 [facility] Immature granulocytes/100 WB C Auto (Bld)Ordered By: Jose Alexis on 10-31-2024 Immature granulocytes/100 WBC (Bld) 0.500 % 0.0-0.9 [facility] Comment on above: IG% - Immature Granu locytes (promyelocytes, myelocytes and metamyelocytes) > 1% indicates that a LEFT SHIFT is Present. Laboratory - Chemistry and C hemistry - challengeOrdered By: Jose Alexis on 10-31-2024 AST [Catalytic activity/Vol] 22 U/L <32 [facility] MCV (mean corpuscular volume ) determinationOrdered By: Jose Alexis on 10-31-2024 MCV (RBC) [Entitic vol] 92.8 fL 81-99 [facility] Mean corpuscular hemoglobin (MCH) determinationOrdered By: Jose Alexis on 10-31-2024 MCH (RBC) [Entitic mass] 32.2 pg High 27.0-32.0 [facility] Mean corpuscular hemoglobin concentration (MCHC) determinationOrdered By: Jose Alexis on 10-31-2024 MCHC (RBC) [Mass/Vol] 34.7 g/dL 32-36 [facility] Mean platelet volume determi nationOrdered By: Jose Alexis on 10-31-2024 Platelet mean volume (Bld) [Entitic vol] 9.9 fL 6.2-12.0 [facility] Monocyte percentageOrdered B y: Jose Alexis on 10-31-2024 Monocytes/100 WBC (Bld) 7.4 % 0-10 [facility] Neutrophil percentageOrdered By: Jose Alexis on 10-31-2024 Neutrophils/100 WBC (Bld) 74.6 % High 47-70 [facility] No Panel InformationOrdered By: Jose Alexis on 10-31-2024 Urine Buprenorphine Qualitative Negative < 200 ng/mL [facility] Urine Oxycodone Screen Negative < 100 ng/mL [facility] Nucleated red blood cell per centageOrdered By: Jose Alexis on 10-31-2024 Nucleated RBC/100 WBC (Bld) [Ratio] 0 % 0-5 [facility] Platelet countOrdered By: Lex Alexis on 10-31-2024 Platelets (Bld) [#/Vol] 314 10*3/uL 150-450 [facility] Potassium measurement (mass/ volume)Ordered By: Jose Alexis on 10-31-2024 Potassium (Unsp spec) [Mass/Vol] 3.8 mmol/L 3.3-5.1 [facility] ,Serum,hCG Quali.on 10-31-2024 HCG, SERUM QUAL Negative Normal [facility] Comment on above: Performed By: #### L 100.0100, L500.4050 #### [facility] [address] [place], [address] Quantitative urine opiates m easurementOrdered By: Jose Alexis on 10-31-2024 Opiates Ql (U) Negative < 300 ng/mL [facility] RBC Auto (Bld) [#/Vol]Ordere d By: Jose Alexis on 10-31-2024 RBC (Bld) [#/Vol] 4.19 10*6/uL Low 4.2-5.4 [facility] Screening urine fentanyl kristine surementOrdered By: Jose Alexis on 10-31-2024 fentaNYL Screen Ql (U) Negative [facility] Serum beta-hCG test, qualita tiveOrdered By: Jose Alexis on 10-31-2024 Beta HCG ( test) Ql Negative [facility] Serum creatinine measurement (mass/volume)Ordered By: Jose Alexis on 10-31-2024 Creatinine [Mass/Vol] 0.60 mg/dL Low 0.70-1.20 [facility] Serum globulin measurementOr dered By: Jose Alexis on 10-31-2024 Globulin (S) [Mass/Vol] 2.5 g/dL 2.2-4.2 [facility] Serum glucose measurement (m ass/volume)Ordered By: Jose Alexis on 10-31-2024 Glucose [Mass/Vol] 133 mg/dL High 70-99 [facility] Serum or plasma alanine kirk otransferase (ALT) measurementOrdered By: Jose Alexis on 10-31-2024 ALT [Catalytic activity/Vol] 33 U/L <35 [facility] Serum or plasma albumin herberth urement (mass/volume)Ordered By: Jose Alexis on 10-31-2024 Albumin [Mass/Vol] 4.6 g/dL 3.5-5.0 [facility] Serum or plasma albumin/glob ulin mass ratioOrdered By: Jose Alexis on 10-31-2024 Albumin/Globulin [Mass ratio] 1.8 {ratio} 0.9-2.4 [facility] Serum or plasma alkaline joseph sphatase measurementOrdered By: Jose Alexis on 10-31-2024 ALP [Catalytic activity/Vol] 65 U/L 35-104 [facility] Serum or plasma calcium herberth urement (mass/volume)Ordered By: Jose Alexis on 10-31-2024 Calcium [Mass/Vol] 9.7 mg/dL 7.6-11.0 [facility] Serum or plasma ethanol herberth urement (mass/volume)Ordered By: Jose Alexis on 10-31-2024 Ethanol [Mass/Vol] mg/dL <10.1 [facility] Comment on above: This test is for med ical purposes only. The legal definition of intoxication varies according to local law. Serum or plasma urea nitroge n measurement (mass/volume)Ordered By: Jose Alexis on 10-31-2024 Urea nitrogen [Mass/Vol] 9 mg/dL 4-19 [facility] Sodium levelOrdered By: Jose Alexis on 10-31-2024 Sodium [Moles/Vol] 137 mmol/L 133-145 [facility] Total proteinOrdered By: Lauren Alexis on 10-31-2024 Protein [Mass/Vol] 7.1 g/dL 5.9-8.4 [facility] Urine Drug Screen (VISTA)on 10-31-2024 AMPHETAMINES Negative Normal <1000 ng/mL [facility] Comment on above: Performed By: #### L 100.0100, L500.4050 #### [facility] [place], [address] BARBITIURATES Negative Normal < 200 ng/mL [facility] Comment on above: Performed By: #### L 100.0100, L500.4050 #### [facility] [address] [place], [address] BENZODIAZIPINE Negative Normal < 200 ng/mL [facility] Comment on above: Performed By: #### L 100.0100, L500.4050 #### [facility] [address] [place], [address] BUP Ur Drug Scr Negative Normal < 200 ng/mL [facility] Comment on above: Performed By: #### L 100.0100, L500.4050 #### [facility] [address] [place], [address] COCAINE Negative Normal < 300 ng/mL [facility] Comment on above: Performed By: #### L 100.0100, L500.4050 #### [facility] [address] [place], [address] Fentanyl Negative Normal [facility] [facility] Comment on above: Performed By: #### L 100.0100, L500.4050 #### [facility] [address] [place], [address] METHADONE Negative Normal < 300 ng/mL [facility] Comment on above: Performed By: #### L 100.0100, L500.4050 #### [facility] [address] [place], [address] OPIATES Negative Normal < 300 ng/mL [facility] Comment on above: Performed By: #### L 100.0100, L500.4050 #### [facility] [address] [place], [address] OXYCODONE Negative Normal < 100 ng/mL [facility] Comment on above: Performed By: #### L 100.0100, L500.4050 #### [facility] [address] [place], [address] PCP Negative Normal < 25 ng/mL [facility] Comment on above: Performed By: #### L 100.0100, L500.4050 #### [facility] [address] [place], [address] THC Negative Normal < 50 ng/mL [facility] Comment on above: Performed By: #### L 100.0100, L500.4050 #### [facility] [address] [place], [address] Urine benzodiazepine levelOr dered By: Jose Alexis on 10-31-2024 Benzodiazepines Ql (U) Negative < 200 ng/mL [facility] Urine cocaine levelOrdered B y: Jose Alexis on 10-31-2024 Cocaine Ql (U) Negative < 300 ng/mL [facility] Urine clxuj-3-hiwussjhvvrimr abinol (THC) measurementOrdered By: Jose Alexis on 10-31-2024 Cannabinoids Screen Ql (U) Negative < 50 ng/mL [facility] Urine phencyclidine (PCP) de tectionOrdered By: Jose Alexis on 10-31-2024 Phencyclidine Ql (U) Negative < 25 ng/mL [facility] White blood cell (WBC) count Ordered By: Jose Alexis on 10-31-2024 WBC (Bld) [#/Vol] 9.4 10*3/uL 4.4-11.0 [facility] 12 Lead EKGon 10-26-2024 12 Lead EKG [facility] [address] [place] [address] 12 Lead EKG 10/26/24 0624 MR#: [id number] Acct: [id number] Name: VERONICA UMAÑA Rep #: [id number] : 1975 49 From: Dillon Florez MD [...] Normal ECG Confirmed by LILIA COLLINS, DILLON ([id number]), scientific publications editor VERONICA ESCOBAR ([id number]) on 10/30/2024 6:59:46 AM Referred By: Confirmed By: DILLON FLOREZ MD 10/30/24 0659 Date Dillon Florez MD CC: COMPUTATIONAL SCIENTIST-Zeke Aguilar; Dr. Ramesh Coffey, DO Signed Normal [facility] Absolute lymphocyte countOrd ered By: Ramesh Coffey on 10-26-2024 Lymphocytes Auto (Unsp spec) [#/Vol] 1.51 10*3/uL 0.83-4.51 [facility] Absolute neutrophil countOrd ered By: Ramesh Coffey on 10-26-2024 Neutrophils (Bld) [#/Vol] 5.4 10*3/uL 2.0-7.7 [facility] Anion gap in Serum or Plasma Ordered By: Ramesh Coffey on 10-26-2024 Anion gap [Moles/Vol] 14 mmol/L 5-15 [facility] Automated lymphocyte count a s percentage of total leukocytesOrdered By: Ramesh Coffey on 10-26-2024 Lymphocytes/100 WBC Auto (Unsp spec) 19.7 % 19-41 [facility] BUN/creatinine ratioOrdered By: Ramesh Coffey on 10-26-2024 Urea nitrogen/Creatinine [Mass ratio] 12.6 mg/mg 10-20 [facility] Basophil percentageOrdered B y: Ramesh Coffey on 10-26-2024 Basophils/100 WBC (Bld) 0.5 % 0-1 [facility] Bilirubin Test strip Ql (U)O rdered By: Ramesh Coffey on 10-26-2024 Bilirubin Ql (U) Negative Negative [facility] Bilirubin, totalOrdered By: Ramesh Coffey on 10-26-2024 Bilirubin [Mass/Vol] 0.86 mg/dL 0.00-1.[address] [facility] CBC W/Diff, Automatedon 10-05 Absolute Lymph 1.51 X10 3/uL Normal 0.83-4.51 [facility] Comment on above: Performed By: #### L 100.0100, L500.4050 #### [facility] [address] [place], [address] Absolute Neut 5.4 X10 3/uL Normal 2.0-7.7 [facility] Comment on above: Performed By: #### L 100.0100, L500.4050 #### [facility] [address] [place], [address] Basophils/100 WBC (Bld) 0.5 % Normal 0-1 [facility] Comment on above: Performed By: #### L 100.0100, L500.4050 #### [facility] [address] [place], [address] Eosinophils/100 WBC (Bld) 0.3 % Normal 0-5 [facility] Comment on above: Performed By: #### L 100.0100, L500.4050 #### [facility] [address] [place], [address] Erythrocyte distribution width (RBC) [Ratio] 12.2 % Normal 11.6-14.6 [facility] Comment on above: Performed By: #### L 100.0100, L500.4050 #### [facility] [address] [place], [address] Hematocrit (Bld) [Volume fraction] 37.3 % Normal 37-47 [facility] Comment on above: Performed By: #### L 100.0100, L500.4050 #### [facility] [address] [place], [address] Hemoglobin (Bld) [Mass/Vol] 13.0 g/dL Normal 12.0-15.0 [facility] Comment on above: Performed By: #### L 100.0100, L500.4050 #### [facility] [address] [place], [address] IG% 0.500 Normal 0.0-0.9 [facility] Comment on above: Result Comment: IG% - Immature Granulocytes (promyelocytes, myelocytes and metamyelocytes) > 1% indicates that a LEFT SHIFT is Present. Performed By: #### L 100.0100, L500.4050 #### [facility] [address] [place], [address] Lymphocytes/100 WBC (Bld) 19.7 % Normal 19-41 [facility] Comment on above: Performed By: #### L 100.0100, L500.4050 #### [facility] [address] [place], [address] MCH (RBC) [Entitic mass] 32.2 pg High 27.0-32.0 [facility] Comment on above: Performed By: #### L 100.0100, L500.4050 #### [facility] [address] [place], [address] MCHC (RBC) [Mass/Vol] 34.9 g/dL Normal 32-36 [facility] Comment on above: Performed By: #### L 100.0100, L500.4050 #### [facility] [address] [place], [address] MCV (RBC) [Entitic vol] 92.3 fL Normal 81-99 [facility] Comment on above: Performed By: #### L 100.0100, L500.4050 #### [facility] [address] [place], [address] Monocytes/100 WBC (Bld) 8.5 % Normal 0-10 [facility] Comment on above: Performed By: #### L 100.0100, L500.4050 #### [facility] [address] [place], [address] Neutrophils/100 WBC (Bld) 70.5 % High 47-70 [facility] Comment on above: Performed By: #### L 100.0100, L500.4050 #### [facility] [address] [place], [address] Nucleated RBC (Bld) [#/Vol] 0 10*3/uL Normal 0-5 [facility] Comment on above: Performed By: #### L 100.0100, L500.4050 #### [facility] [address] [place], [address] Platelet mean volume (Bld) [Entitic vol] 9.6 fL Normal 6.2-12.0 [facility] Comment on above: Performed By: #### L 100.0100, L500.4050 #### [facility] [address] [place], [address] Platelets (Bld) [#/Vol] 302 10*3/uL Normal 150-450 [facility] Comment on above: Performed By: #### L 100.0100, L500.4050 #### [facility] [address] [place], [address] RBC (Bld) [#/Vol] 4.04 10*6/uL Low 4.2-5.4 [facility] Comment on above: Performed By: #### L 100.0100, L500.4050 #### [facility] [address] [place], [address] RDW SD 41.5 fl Normal 35.1-43.9 [facility] Comment on above: Performed By: #### L 100.0100, L500.4050 #### [facility] [address] [place], [address] WBC (Bld) [#/Vol] 7.7 10*3/uL Normal 4.4-11.0 [facility] Comment on above: Performed By: #### L 100.0100, L500.4050 #### [facility] [address] [place], [address] Carbon dioxide, total [Moles /volume] in Central venous bloodOrdered By: Ramesh Coffey on 10-26-2024 CO2 [Moles/Vol] 22.4 mmol/L 21.0-32.0 [facility] Chloride assayOrdered By: Ron Coffey on 10-26-2024 Chloride [Moles/Vol] 103 mmol/L 98-[address] [facility] Comprehensive Metabolic Prof ilon 10-26-2024 Albumin [Mass/Vol] 4.6 g/dL Normal 3.5-5.0 [facility] Comment on above: Performed By: #### L 100.0100, L500.4050 #### [facility] [address] [place], [address] Albumin/Globulin [Mass ratio] 1.6 {ratio} Normal 0.9-2.4 [facility] Comment on above: Performed By: #### L 100.0100, L500.4050 #### [facility] [address] [place], [address] ALK PHOS 68 U/L Normal 35-104 [facility] Comment on above: Performed By: #### L 100.0100, L500.4050 #### [facility] [address] [place], [address] ALT [Catalytic activity/Vol] 49 U/L High <=34 [facility] Comment on above: Performed By: #### L 100.0100, L500.4050 #### [facility] [address] [place], [address] AST [Catalytic activity/Vol] 36 U/L High <=31 [facility] Comment on above: Performed By: #### L 100.0100, L500.4050 #### [facility] [address] [place], [address] Bilirubin [Mass/Vol] 0.86 mg/dL Normal 0.00-1.[address] [facility] Comment on above: Performed By: #### L 100.0100, L500.4050 #### [facility] [address] [place], [address] BUN/CRE 12.6 RATIO Normal 10-20 [facility] Comment on above: Performed By: #### L 100.0100, L500.4050 #### [facility] [address] [place], [address] Calcium [Mass/Vol] 9.7 mg/dL Normal 7.6-11.0 [facility] Comment on above: Performed By: #### L 100.0100, L500.4050 #### [facility] [address] [place], [address] Chloride [Moles/Vol] 103 mmol/L Normal 98-[address] [facility] Comment on above: Performed By: #### L 100.0100, L500.4050 #### [facility] [address] [place], [address] CO2 [Moles/Vol] 22.4 mmol/L Normal 21.0-32.0 [facility] Comment on above: Performed By: #### L 100.0100, L500.4050 #### [facility] [address] [place], [address] Creatinine [Mass/Vol] 0.70 mg/dL Normal 0.70-1.20 [facility] Comment on above: Performed By: #### L 100.0100, L500.4050 #### [facility] [address] [place], [address] ECRCL 102.34 ml/min Normal 50-250 [facility] Comment on above: Performed By: #### L 100.0100, L500.4050 #### [facility] [address] [place], [address] GAP 14 Normal 5-15 [facility] Comment on above: Performed By: #### L 100.0100, L500.4050 #### [facility] [address] [place], [address] GFR/1.73 sq M.predicted among non-blacks MDRD (S/P/Bld) [Vol rate/Area] 105 mL/min/{1.73_m2} Normal >60 [facility] Comment on above: Result Comment: mL/m in/1.73m2 CKD-EPI Creatinine Equation (2020) Performed By: #### L 100.0100, L500.4050 #### [facility] [address] [place], [address] Globulin (S) [Mass/Vol] 2.8 g/dL Normal 2.2-4.2 [facility] Comment on above: Performed By: #### L 100.0100, L500.4050 #### [facility] [address] [place], [address] Glucose [Mass/Vol] 123 mg/dL High 70-99 [facility] Comment on above: Performed By: #### L 100.0100, L500.4050 #### [facility] [address] [place], [address] Potassium [Moles/Vol] 4.1 mmol/L Normal 3.3-5.1 [facility] Comment on above: Performed By: #### L 100.0100, L500.4050 #### [facility] [address] [place], [address] Sodium [Moles/Vol] 139 mmol/L Normal 133-145 [facility] Comment on above: Performed By: #### L 100.0100, L500.4050 #### [facility] [address] [place], [address] T PROT 7.4 g/dL Normal 5.9-8.4 [facility] Comment on above: Performed By: #### L 100.0100, L500.4050 #### [facility] [address] [place], [address] Urea nitrogen [Mass/Vol] 9 mg/dL Normal 4-19 [facility] Comment on above: Performed By: #### L 100.0100, L500.4050 #### [facility] [address] [place], [address] Emergency Department Summary on 10-26-2024 Emergency Department Summary [facility] Medical Records Department [address] [place] [address] Emergency Department Summary 10/26/24 MR#: [id number] Acct: [id number] Name: VERONICA UMÑAA Rep #: [id number] : 1975 49 From: Ramesh Coffey DO [...] 10/26/24 0837 Cosigner Signature (if applicable): cc: COMPUTATIONAL SCIENTISTIanC Elinor Aguilar * Signed ADDENDUM by Dr. [...] concerned that she was having allergic reaction. [facility] Medical History Fear of travel with [...] 08:42 S (more content not included)... Normal [facility] Eosinophil percentageOrdered By: Ramesh Coffey on 10-26-2024 Eosinophils/100 WBC (Bld) 0.3 % 0-5 [facility] Erythrocyte distribution wid th ratioOrdered By: Ramesh Coffey on 10-26-2024 Erythrocyte distribution width (RBC) [Ratio] 12.2 % 11.6-14.6 [facility] Erythrocyte distribution wid th standard deviationOrdered By: Ramesh Coffey on 10-26-2024 Erythrocyte distribution width (RBC) [Ratio] 41.5 fl 35.1-43.9 [facility] Glomerular filtration rate ( GFR) estimation/1.73 sq m using serum, plasma, or whole bOrdered By: Ramesh Coffey on 10-26-2024 GFR/1.73 sq M.predicted among non-blacks MDRD (S/P/Bld) [Vol rate/Area] 105 mL/min/{1.73_m2} >60 [facility] Comment on above: mL/min/1.73m2 CKD-EP I Creatinine Equation (2020) Hematocrit Auto (Bld) [Volum e fraction]Ordered By: Ramesh Coffey on 10-26-2024 Hematocrit (Bld) [Volume fraction] 37.3 % 37-47 [facility] Hemoglobin measurementOrdere d By: Ramesh Coffey on 10-26-2024 Hemoglobin (Bld) [Mass/Vol] 13.0 g/dL 12.0-15.0 [facility] Immature granulocytes/100 WB C Auto (Bld)Ordered By: Ramesh Coffey on 10-26-2024 Immature granulocytes/100 WBC (Bld) 0.500 % 0.0-0.9 [facility] Comment on above: IG% - Immature Granu locytes (promyelocytes, myelocytes and metamyelocytes) > 1% indicates that a LEFT SHIFT is Present. Ketones Test strip Ql (U)Ord ered By: Ramesh Coffey on 10-26-2024 Ketones Ql (U) 15 mg/dl High Negative [facility] L499.0042on 10-26-2024 Trop T High Sen Normal <=14 [facility] Comment on above: Result Comment: Kimberlee franklin via OM: Ordered Performed By: #### L 100.0100, L500.4050 #### [facility] [address] [place], [address] L499.0043on 10-26-2024 Trop T High Sen Normal <=14 [facility] Comment on above: Result Comment: Canc noemi via OM: Ordered Performed By: #### L 499.0043 #### [facility] [address] [place], [address] L501.4021on 10-26-2024 Trop T High Sen 7 ng/L Normal <=14 [facility] Comment on above: Performed By: #### L 100.0100, L500.4050 #### [facility] [address] [place], [place], [address] Laboratory - Chemistry and C hemistry - challengeOrdered By: Ramesh Coffey on 10-26-2024 AST [Catalytic activity/Vol] 36 U/L High <32 [facility] Lipaseon 10-26-2024 Lipase [Catalytic activity/Vol] 28 U/L Normal 13-75 [facility] Comment on above: Result Comment: Cynthia palacios note: LIPASE revised reference range effective 22. New Lipase methodology. Expected to produce lower values than the previous assay method. NEW Reference Range: 13 - 75 U/L Performed By: #### L 100.0100, L500.4050 #### [facility] [address] [place], [address] Lipase measurementOrdered By : Ramesh Coffey on 10-26-2024 Lipase [Catalytic activity/Vol] 28 U/L 13-75 [facility] Comment on above: Please note:LIPASE r evised reference range effective 22. New Lipase methodology. Expected to produce lower values than the previous assay method. NEW Reference Range: 13 - 75 U/L MCV (mean corpuscular volume ) determinationOrdered By: Ramesh Coffey on 10-26-2024 MCV (RBC) [Entitic vol] 92.3 fL 81-99 [facility] Mean corpuscular hemoglobin (MCH) determinationOrdered By: Ramesh Coffey on 10-26-2024 MCH (RBC) [Entitic mass] 32.2 pg High 27.0-32.0 [facility] Mean corpuscular hemoglobin concentration (MCHC) determinationOrdered By: Ramesh Coffey on 10-26-2024 MCHC (RBC) [Mass/Vol] 34.9 g/dL 32-36 [facility] Mean platelet volume determi nationOrdered By: Ramesh Coffey on 10-26-2024 Platelet mean volume (Bld) [Entitic vol] 9.6 fL 6.2-12.0 [facility] Microscopic analysis of urin e for red blood cells (RBC)Ordered By: Ramesh Coffey on 10-26-2024 Microscopic analysis of urine for red blood cells (RBC) 0 SEEN /hpf 0-5 [facility] Monocyte percentageOrdered B y: Ramesh Coffey on 10-26-2024 Monocytes/100 WBC (Bld) 8.5 % 0-10 [facility] Mucus LM Ql (Urine sed)Order ed By: Ramesh Coffey on 10-26-2024 Mucus Ql (Urine sed) 0 SEEN /hpf [facility] Neutrophil percentageOrdered By: Ramesh Coffey on 10-26-2024 Neutrophils/100 WBC (Bld) 70.5 % High 47-70 [facility] Nitrite Test strip Ql (U)Ord ered By: Ramesh Coffey on 10-26-2024 Nitrite Ql (U) Negative Negative [facility] Nucleated red blood cell per centageOrdered By: Ramesh Coffey on 10-26-2024 Nucleated RBC/100 WBC (Bld) [Ratio] 0 % 0-5 [facility] Platelet countOrdered By: Ron Coffey on 10-26-2024 Platelets (Bld) [#/Vol] 302 10*3/uL 150-450 [facility] Potassium measurement (mass/ volume)Ordered By: Ramesh Coffey on 10-26-2024 Potassium (Unsp spec) [Mass/Vol] 4.1 mmol/L 3.3-5.1 [facility] Protein Test strip Ql (U)Ord ered By: Ramesh Coffey on 10-26-2024 Protein Ql (U) Negative Negative [facility] RBC Auto (Bld) [#/Vol]Ordere d By: Ramesh Coffey on 10-26-2024 RBC (Bld) [#/Vol] 4.04 10*6/uL Low 4.2-5.4 [facility] Serum creatinine measurement (mass/volume)Ordered By: Ramesh Coffey on 10-26-2024 Creatinine [Mass/Vol] 0.70 mg/dL 0.70-1.20 [facility] Serum globulin measurementOr dered By: Ramesh Coffey on 10-26-2024 Globulin (S) [Mass/Vol] 2.8 g/dL 2.2-4.2 [facility] Serum glucose measurement (m ass/volume)Ordered By: Ramesh Coffey on 05-23-2025 Glucose [Mass/Vol] 123 mg/dL High 70-99 [facility] Serum or plasma alanine kirk otransferase (ALT) measurementOrdered By: Ramesh Coffey on 10-26-2024 ALT [Catalytic activity/Vol] 49 U/L High <35 [facility] Serum or plasma albumin herberth urement (mass/volume)Ordered By: Ramesh Coffey on 10-26-2024 Albumin [Mass/Vol] 4.6 g/dL 3.5-5.0 [facility] Serum or plasma albumin/glob ulin mass ratioOrdered By: Ramesh Coffey on 10-26-2024 Albumin/Globulin [Mass ratio] 1.6 {ratio} 0.9-2.4 [facility] Serum or plasma alkaline joseph sphatase measurementOrdered By: Ramesh Coffey on 10-26-2024 ALP [Catalytic activity/Vol] 68 U/L 35-104 [facility] Serum or plasma calcium herberth urement (mass/volume)Ordered By: Ramesh Coffey on 10-26-2024 Calcium [Mass/Vol] 9.7 mg/dL 7.6-11.0 [facility] Serum or plasma urea nitroge n measurement (mass/volume)Ordered By: Ramesh Coffey on 10-26-2024 Urea nitrogen [Mass/Vol] 9 mg/dL 4-19 [facility] Sodium levelOrdered By: Dinesh Coffey on 10-26-2024 Sodium [Moles/Vol] 139 mmol/L 133-145 [facility] Squamous epithelial cells de tection in urine sediment by light microscopyOrdered By: Ramesh Coffey on 10-26-2024 Epithelial cells.squamous LM Ql (Urine sed) 5-10 SEEN /hpf 5-10 [facility] Total proteinOrdered By: Franklin Coffey on 10-26-2024 Protein [Mass/Vol] 7.4 g/dL 5.9-8.4 [facility] Troponin T.cardiac [Mass/vol ume] in Serum or Plasma by High sensitivity methodOrdered By: Ramesh Coffey on 10-26-2024 Troponin T.cardiac High sensitivity method [Mass/Vol] 7 ng/L <14 [facility] Urinalysis, Completeon 10-26 BACTERIA 2+ /hpf Normal None Seen [facility] Comment on above: Order Comment: CLEAN CATCH Performed By: #### L 400.0001 #### [facility] [address] [place], [address] EPI,SQUAMOUS 5-10 SEEN Normal 5-10 [facility] Comment on above: Order Comment: CLEAN CATCH Performed By: #### L 400.0001 #### [facility] [address] [place], [address] WBC 0-5 SEEN Normal 0-5 [facility] Comment on above: Order Comment: CLEAN CATCH Performed By: #### L 400.0001 #### [facility] [address] [facility] [address] BILIRUBIN URINE Negative Normal Negative [facility] Comment on above: Order Comment: CLEAN CATCH Performed By: #### L 400.0001 #### [facility] [address] [facility] [address] Clarity (U) Turbid Normal Clear [facility] Comment on above: Order Comment: CLEAN CATCH Performed By: #### L 400.0001 #### [facility] [address] [place], [address] Color (U) Straw Normal Yellow [facility] Comment on above: Order Comment: CLEAN CATCH Performed By: #### L 400.0001 #### [facility] [address] [facility] [address] GLUCOSE, UR Normal Normal Normal [facility] Comment on above: Order Comment: CLEAN CATCH Performed By: #### L 400.0001 #### [facility] [address] [place], [address] KETONE UR 15 mg/dl Abnormal Negative [facility] Comment on above: Order Comment: CLEAN CATCH Performed By: #### L 400.0001 #### [facility] [address] [facility] [address] LEUK ESTERASE Negative Normal Negative [facility] Comment on above: Order Comment: CLEAN CATCH Performed By: #### L 400.0001 #### [facility] [address] [place], [address] Nitrite Ql (U) Negative Normal Negative [facility] Comment on above: Order Comment: CLEAN CATCH Performed By: #### L 400.0001 #### [facility] [address] [place], [address] OCCULT BLOOD-UR Negative Normal Negative [facility] Comment on above: Order Comment: CLEAN CATCH Performed By: #### L 400.0001 #### [facility] [address] [place], [address] pH UR 6.5 Normal 5.0 - 8.0 [facility] Comment on above: Order Comment: CLEAN CATCH Performed By: #### L 400.0001 #### [facility] [address] [place], [address] PROT DIPSTX Negative Normal Negative [facility] Comment on above: Order Comment: CLEAN CATCH Performed By: #### L 400.0001 #### [facility] [address] [place], [address] SP.GR. DIPSTX 1.010 Normal 1.002-1.03 0 [facility] Comment on above: Order Comment: CLEAN CATCH Performed By: #### L 400.0001 #### [facility] [address] [place], [address] UROBILI Normal Normal Normal [facility] Comment on above: Order Comment: CLEAN CATCH Performed By: #### L 400.0001 #### [facility] [address] [place], [address] Mucus Ql (Urine sed) 0 SEEN Normal [facility] Comment on above: Order Comment: CLEAN CATCH Performed By: #### L 400.0001 #### [facility] [address] [place], [place], [address] RBC 0 SEEN Normal 0-5 [facility] Comment on above: Order Comment: CLEAN CATCH Performed By: #### L 400.0001 #### [facility] [address] [place], [place], [id number] Urine clarityOrdered By: Franklin Coffey on 10-26-2024 Clarity (U) Turbid Clear [facility] Urine color determinationOrd ered By: Ramesh Coffey on 10-26-2024 Color (U) Straw Yellow [facility] Urine glucose detectionOrder ed By: Ramesh Coffey on 10-26-2024 Glucose Ql (U) Normal mg/dl Normal [facility] Urine leukocyte esterase det ection by dipstickOrdered By: Ramesh Coffey on 10-26-2024 Leukocyte esterase Test strip Ql (U) Negative Negative [facility] Urine pHOrdered By: Ramesh mendieta on 10-26-2024 pH (U) 6.5 [pH] 5.0 - 8.0 [facility] Urine sediment bacteria coun t by microscopy (number/high power field)Ordered By: aRmesh Coffey on 10-26-2024 Bacteria LM.HPF (Urine sed) [#/Area] 2 /[HPF] None Seen [facility] Urine specific gravity measu rementOrdered By: Ramesh Coffey on 10-26-2024 Specific gravity (U) [Rel density] 1.010 1.002-1.03 0 [facility] Urine urobilinogen measureme ntOrdered By: Ramesh Coffey on 10-26-2024 Urobilinogen Ql (U) Normal mg/dl Normal [facility] White blood cell (WBC) count Ordered By: Ramesh Coffey on 10-26-2024 WBC (Bld) [#/Vol] 7.7 10*3/uL 4.4-11.0 [facility] White blood cell countOrdere d By: Ramesh Coffey on 10-26-2024 White blood cell count 0-5 SEEN /hpf 0-5 [facility] Absolute lymphocyte countOrd ered By: Elinor Aguilar on 09-06-2024 Lymphocytes Auto (Unsp spec) [#/Vol] 2.17 10*3/uL 0.83-4.51 [facility] Absolute neutrophil countOrd ered By: Elinor Aguilar on 09-06-2024 Neutrophils (Bld) [#/Vol] 4.7 10*3/uL 2.0-7.7 [facility] Anion gap in Serum or Plasma Ordered By: Elinor Aguilar on 09-06-2024 Anion gap [Moles/Vol] 10 mmol/L 5-15 [facility] Automated lymphocyte count a s percentage of total leukocytesOrdered By: Elinor Aguilar on 09-06-2024 Lymphocytes/100 WBC Auto (Unsp spec) 28.3 % 19- [facility] BUN/creatinine ratioOrdered By: Elinor Aguilar on 09-06-2024 Urea nitrogen/Creatinine [Mass ratio] 12.4 mg/mg 10-20 [facility] Basophil percentageOrdered B y: Elinor Aguilar on 09-06-2024 Basophils/100 WBC (Bld) 0.8 % 0-1 [facility] Bilirubin, totalOrdered By: Elinor Aguilar on 09-06-2024 Bilirubin [Mass/Vol] 0.27 mg/dL 0.00-1.[address] [facility] CBC W/Diff, Automatedon Absolute Lymph 2.17 X10 3/uL Normal 0.83-4.51 [facility] Comment on above: Performed By: #### L 100.0100, L500.4050 #### [facility] [address] [place], [address] Absolute Neut 4.7 X10 3/uL Normal 2.0-7.7 [facility] Comment on above: Performed By: #### L 100.0100, L500.4050 #### [facility] [address] [place], [address] Basophils/100 WBC (Bld) 0.8 % Normal 0-1 [facility] Comment on above: Performed By: #### L 100.0100, L500.4050 #### [facility] [address] [place], [address] Eosinophils/100 WBC (Bld) 0.8 % Normal 0-5 [facility] Comment on above: Performed By: #### L 100.0100, L500.4050 #### [facility] [address] [place], [address] Erythrocyte distribution width (RBC) [Ratio] 12.6 % Normal 11.6-14.6 [facility] Comment on above: Performed By: #### L 100.0100, L500.4050 #### [facility] [address] [place], [address] Hematocrit (Bld) [Volume fraction] 38.1 % Normal 37-47 [facility] Comment on above: Performed By: #### L 100.0100, L500.4050 #### [facility] [address] [place], [address] Hemoglobin (Bld) [Mass/Vol] 12.6 g/dL Normal 12.0-15.0 [facility] Comment on above: Performed By: #### L 100.0100, L500.4050 #### [facility] [address] [place], [address] IG% 0.400 Normal 0.0-0.9 [facility] Comment on above: Result Comment: IG% - Immature Granulocytes (promyelocytes, myelocytes and metamyelocytes) > 1% indicates that a LEFT SHIFT is Present. Performed By: #### L 100.0100, L500.4050 #### [facility] [address] [place], [address] Lymphocytes/100 WBC (Bld) 28.3 % Normal 19-41 [facility] Comment on above: Performed By: #### L 100.0100, L500.4050 #### [facility] [address] [place], [address] MCH (RBC) [Entitic mass] 31.3 pg Normal 27.0-32.0 [facility] Comment on above: Performed By: #### L 100.0100, L500.4050 #### [facility] [address] [place], [address] MCHC (RBC) [Mass/Vol] 33.1 g/dL Normal 32-36 [facility] Comment on above: Performed By: #### L 100.0100, L500.4050 #### [facility] [address] [place], [address] MCV (RBC) [Entitic vol] 94.5 fL Normal 81-99 [facility] Comment on above: Performed By: #### L 100.0100, L500.4050 #### [facility] [address] [place], [address] Monocytes/100 WBC (Bld) 8.5 % Normal 0-10 [facility] Comment on above: Performed By: #### L 100.0100, L500.4050 #### [facility] [address] [place], [address] Neutrophils/100 WBC (Bld) 61.2 % Normal 47-70 [facility] Comment on above: Performed By: #### L 100.0100, L500.4050 #### [facility] [address] [place], [address] Nucleated RBC (Bld) [#/Vol] 0 10*3/uL Normal 0-5 [facility] Comment on above: Performed By: #### L 100.0100, L500.4050 #### [facility] [address] [place], [address] Platelet mean volume (Bld) [Entitic vol] 10.2 fL Normal 6.2-12.0 [facility] Comment on above: Performed By: #### L 100.0100, L500.4050 #### [facility] [address] [place], [address] Platelets (Bld) [#/Vol] 325 10*3/uL Normal 150-450 [facility] Comment on above: Performed By: #### L 100.0100, L500.4050 #### [facility] [address] [place], [address] RBC (Bld) [#/Vol] 4.03 10*6/uL Low 4.2-5.4 [facility] Comment on above: Performed By: #### L 100.0100, L500.4050 #### [facility] [address] [place], [address] RDW SD 43.8 fl Normal 35.1-43.9 [facility] Comment on above: Performed By: #### L 100.0100, L500.4050 #### [facility] [address] [place], [address] WBC (Bld) [#/Vol] 7.7 10*3/uL Normal 4.4-11.0 [facility] Comment on above: Performed By: #### L 100.0100, L500.4050 #### [facility] [address] [place], [address] Carbon dioxide, total [Moles /volume] in Central venous bloodOrdered By: Elinor Aguilar on 09-06-2024 CO2 [Moles/Vol] 26.6 mmol/L 21.0-32.0 [facility] Chloride assayOrdered By: Ayden Aguilar on 09-06-2024 Chloride [Moles/Vol] 104 mmol/L 98-[address] [facility] Comprehensive Metabolic Prof ilon 09-06-2024 Albumin [Mass/Vol] 4.6 g/dL Normal 3.5-5.0 [facility] Comment on above: Performed By: #### L 100.0100, L500.4050 #### [facility] [address] [place], [address] Albumin/Globulin [Mass ratio] 2.0 {ratio} Normal 0.9-2.4 [facility] Comment on above: Performed By: #### L 100.0100, L500.4050 #### [facility] [address] [place], [address] ALK PHOS 75 U/L Normal 35-104 [facility] Comment on above: Performed By: #### L 100.0100, L500.4050 #### [facility] [address] [place], [address] ALT [Catalytic activity/Vol] 25 U/L Normal <=34 [facility] Comment on above: Performed By: #### L 100.0100, L500.4050 #### [facility] [address] [place], [address] AST [Catalytic activity/Vol] 18 U/L Normal <=31 [facility] Comment on above: Performed By: #### L 100.0100, L500.4050 #### [facility] [address] [place], [address] Bilirubin [Mass/Vol] 0.27 mg/dL Normal 0.00-1.[address] [facility] Comment on above: Performed By: #### L 100.0100, L500.4050 #### [facility] [address] [place], [address] BUN/CRE 12.4 RATIO Normal 10-20 [facility] Comment on above: Performed By: #### L 100.0100, L500.4050 #### [facility] [address] [place], [address] Calcium [Mass/Vol] 9.9 mg/dL Normal 7.6-11.0 [facility] Comment on above: Performed By: #### L 100.0100, L500.4050 #### [facility] [address] [place], [address] Chloride [Moles/Vol] 104 mmol/L Normal 98-[address] [facility] Comment on above: Performed By: #### L 100.0100, L500.4050 #### [facility] [address] [place], [address] CO2 [Moles/Vol] 26.6 mmol/L Normal 21.0-32.0 [facility] Comment on above: Performed By: #### L 100.0100, L500.4050 #### [facility] [address] [place], [address] Creatinine [Mass/Vol] 0.68 mg/dL Low 0.70-1.20 [facility] Comment on above: Performed By: #### L 100.0100, L500.4050 #### [facility] [address] [place], [address] GAP 10 Normal 5-15 [facility] Comment on above: Performed By: #### L 100.0100, L500.4050 #### [facility] [address] [place], [address] GFR/1.73 sq M.predicted among non-blacks MDRD (S/P/Bld) [Vol rate/Area] 106 mL/min/{1.73_m2} Normal >60 [facility] Comment on above: Result Comment: mL/m in/1.73m2 CKD-EPI Creatinine Equation (2020) Performed By: #### L 100.0100, L500.4050 #### [facility] [address] [place], [address] Globulin (S) [Mass/Vol] 2.3 g/dL Normal 2.2-4.2 [facility] Comment on above: Performed By: #### L 100.0100, L500.4050 #### [facility] [address] [place], [address] Glucose [Mass/Vol] 103 mg/dL High 70-99 [facility] Comment on above: Performed By: #### L 100.0100, L500.4050 #### [facility] [address] [place], [address] Potassium [Moles/Vol] 4.4 mmol/L Normal 3.3-5.1 [facility] Comment on above: Performed By: #### L 100.0100, L500.4050 #### [facility] [address] [place], [address] Sodium [Moles/Vol] 141 mmol/L Normal 133-145 [facility] Comment on above: Performed By: #### L 100.0100, L500.4050 #### [facility] [address] [place], [address] T PROT 6.9 g/dL Normal 5.9-8.4 [facility] Comment on above: Performed By: #### L 100.0100, L500.4050 #### [facility] [address] [place], [address] Urea nitrogen [Mass/Vol] 8 mg/dL Normal 4-19 [facility] Comment on above: Performed By: #### L 100.0100, L500.4050 #### [facility] [address] [place], [address] Eosinophil percentageOrdered By: Elinor Aguilar on 09-06-2024 Eosinophils/100 WBC (Bld) 0.8 % 0-5 [facility] Erythrocyte distribution wid th (RBC) [Ratio]Ordered By: Elinor Aguilar on 09-06-2024 Erythrocyte distribution width (RBC) [Entitic vol] 43.8 fL 35.1-43.9 [facility] Erythrocyte distribution wid th ratioOrdered By: Elinor Aguilar on 09-06-2024 Erythrocyte distribution width (RBC) [Ratio] 12.6 % 11.6-14.6 [facility] Erythrocyte distribution wid th standard deviationOrdered By: Elinor Aguilar on 09-06-2024 Erythrocyte distribution width (RBC) [Ratio] 43.8 fl 35.1-43.9 [facility] GFR/1.73 sq M.predicted natan g non-blacks MDRD (S/P/Bld) [Vol rate/Area]Ordered By: Elinor Aguilar on 09-06-2024 Estimated GFR (MDRD) Non-Af Amer 106 >60 [facility] Comment on above: mL/min/1.73m2 CKD-EP I Creatinine Equation (2020) Glomerular filtration rate ( GFR) estimation/1.73 sq m using serum, plasma, or whole bOrdered By: Elinor Aguilar on 09-06-2024 GFR/1.73 sq M.predicted among non-blacks MDRD (S/P/Bld) [Vol rate/Area] 106 mL/min/{1.73_m2} >60 [facility] Comment on above: mL/min/1.73m2 CKD-EP I Creatinine Equation (2020) Hematocrit Auto (Bld) [Volum e fraction]Ordered By: Elinor Aguilar on 09-06-2024 Hematocrit (Bld) [Volume fraction] 38.1 % 37-47 [facility] Hemoglobin measurementOrdere d By: Elinor Aguilar on 09-06-2024 Hemoglobin (Bld) [Mass/Vol] 12.6 g/dL 12.0-15.0 [facility] Immature granulocytes/100 WB C Auto (Bld)Ordered By: Elinor Aguilar on 09-06-2024 Immature granulocytes/100 WBC (Bld) 0.400 % 0.0-0.9 [facility] Comment on above: IG% - Immature Granu locytes (promyelocytes, myelocytes and metamyelocytes) > 1% indicates that a LEFT SHIFT is Present. Laboratory - Chemistry and C hemistry - challengeOrdered By: Elinor Aguilar on 09-06-2024 AST [Catalytic activity/Vol] 18 U/L <32 [facility] Lymphocytes Auto (Unsp spec) [#/Vol]Ordered By: Elinor Aguilar on 09-06-2024 Lymphocytes (Bld) [#/Vol] 2.17 10*3/uL 0.83-4.51 [facility] Lymphocytes/100 WBC Auto (Un sp spec)Ordered By: Elinor Aguilar on 09-06-2024 Lymphocytes/100 WBC (Bld) 28.3 % 19-41 [facility] MCV (mean corpuscular volume ) determinationOrdered By: Elinor Aguilar on 09-06-2024 MCV (RBC) [Entitic vol] 94.5 fL 81-99 [facility] Mean corpuscular hemoglobin (MCH) determinationOrdered By: Elinor Aguilar on 09-06-2024 MCH (RBC) [Entitic mass] 31.3 pg 27.0-32.0 [facility] Mean corpuscular hemoglobin concentration (MCHC) determinationOrdered By: Elinor Aguilar on 09-06-2024 MCHC (RBC) [Mass/Vol] 33.1 g/dL 32-36 [facility] Mean platelet volume determi nationOrdered By: Elinor Aguilar on 09-06-2024 Platelet mean volume (Bld) [Entitic vol] 10.2 fL 6.2-12.0 [facility] Monocyte percentageOrdered B y: Elinor Aguilar on 09-06-2024 Monocytes/100 WBC (Bld) 8.5 % 0-10 [facility] Neutrophil percentageOrdered By: Elinor Aguilar on 09-06-2024 Neutrophils/100 WBC (Bld) 61.2 % 47-70 [facility] Nucleated red blood cell per centageOrdered By: Elinor Aguilar on 09-06-2024 Nucleated RBC/100 WBC (Bld) [Ratio] 0 % 0-5 [facility] Platelet countOrdered By: Ayden Aguilar on 09-06-2024 Platelets (Bld) [#/Vol] 325 10*3/uL 150-450 [facility] Potassium (Unsp spec) [Mass/ Vol]Ordered By: Elinor Aguilar on 09-06-2024 Potassium [Moles/Vol] 4.4 mmol/L 3.3-5.1 [facility] Potassium measurement (mass/ volume)Ordered By: Elinor Aguilar on 09-06-2024 Potassium (Unsp spec) [Mass/Vol] 4.4 mmol/L 3.3-5.1 [facility] RBC Auto (Bld) [#/Vol]Ordere d By: Elinor Aguilar on 09-06-2024 RBC (Bld) [#/Vol] 4.03 10*6/uL Low 4.2-5.4 [facility] Serum creatinine measurement (mass/volume)Ordered By: Elinor Aguilar on 09-06-2024 Creatinine [Mass/Vol] 0.68 mg/dL Low 0.70-1.20 [facility] Serum globulin measurementOr dered By: Elinor Aguilar on 09-06-2024 Globulin (S) [Mass/Vol] 2.3 g/dL 2.2-4.2 [facility] Serum glucose measurement (m ass/volume)Ordered By: Elinor Aguilar on 09-06-2024 Glucose [Mass/Vol] 103 mg/dL High 70-99 [facility] Serum or plasma alanine kirk otransferase (ALT) measurementOrdered By: Elinor Aguilar on 09-06-2024 ALT [Catalytic activity/Vol] 25 U/L <35 [facility] Serum or plasma albumin herberth urement (mass/volume)Ordered By: Elinor Aguilar on 09-06-2024 Albumin [Mass/Vol] 4.6 g/dL 3.5-5.0 [facility] Serum or plasma albumin/glob ulin mass ratioOrdered By: Elinor Aguilar on 09-06-2024 Albumin/Globulin [Mass ratio] 2.0 {ratio} 0.9-2.4 [facility] Serum or plasma alkaline joseph sphatase measurementOrdered By: Elinor Aguilar on 09-06-2024 ALP [Catalytic activity/Vol] 75 U/L 35-104 [facility] Serum or plasma calcium herberth urement (mass/volume)Ordered By: Elinor Aguilar on 09-06-2024 Calcium [Mass/Vol] 9.9 mg/dL 7.6-11.0 [facility] Serum or plasma urea nitroge n measurement (mass/volume)Ordered By: Elinor Aguilar on 09-06-2024 Urea nitrogen [Mass/Vol] 8 mg/dL 4-19 [facility] Sodium levelOrdered By: Renny Aguilar on 09-06-2024 Sodium [Moles/Vol] 141 mmol/L 133-145 [facility] Total proteinOrdered By: Ruby Aguilar on 09-06-2024 Protein [Mass/Vol] 6.9 g/dL 5.9-8.4 [facility] White blood cell (WBC) count Ordered By: Elinor Aguilar on 09-06-2024 WBC (Bld) [#/Vol] 7.7 10*3/uL 4.4-11.0 [facility] Gram stain for investigation of transfusion reactionOrdered By: Charlette Tran on 10-06-2023 Microscopic observation Gram stain Nom (Unsp spec) [facility] No Panel InformationOrdered By: Charlette Tran on 10-06-2023 Genital Culture Neisseria or beta-hemolytic Streptococcus isolated. [facility] Basophil percentageOrdered B y: Natividad Yee on 03-22-2023 Bilirubin [Mass/Vol] 0.50 mg/dL 0.20-1.[address] [facility] Comment on above: For patients on eltr ombopag therapy, use of Dimension [place] TBIL is not recommended. Chloride [Moles/Vol] 104 mmol/L 98-[address] [facility] Glucose [Mass/Vol] 94 mg/dL 74-106 [facility] Potassium [Moles/Vol] 3.5 mmol/L 3.5-5.1 [facility] Protein [Mass/Vol] 7.1 g/dL 6.4-8.2 [facility] Sodium [Moles/Vol] 138 mmol/L 136-145 [facility] - Chemistry and C hemistry - challengeOrdered By: Natividad Yee on 03-22-2023 ALP [Catalytic activity/Vol] 61 U/L 45-117 [facility] ALT [Catalytic activity/Vol] 21 U/L 13-56 [facility] CO2 [Moles/Vol] 29.0 mmol/L 21.0-32.0 [facility] Globulin (S) [Mass/Vol] 3.5 g/dL 2.2-4.2 [facility] Urea nitrogen/Creatinine [Mass ratio] 22.5 mg/mg 10-20 [facility] No Panel InformationOrdered By: Natividad Yee on 03-22-2023 Estimated GFR (MDRD) Amer 112 mL/min >60 [facility] Comment on above: GFR Calc Estimated GFR (MDRD) Non-Af Amer 93 mL/min >60 [facility] Comment on above: Non- GFR Calc Parathyroid Hormone (Intact) 48.8 pg/mL 18.4-80.1 [facility] Serum or plasma albumin herberth urement (mass/volume)Ordered By: Natividad Yee on 03-22-2023 Albumin [Mass/Vol] 3.6 g/dL 3.2-5.0 [facility] Serum or plasma albumin/glob ulin mass ratioOrdered By: Natividad Yee on 03-22-2023 Albumin/Globulin [Mass ratio] 1.0 {ratio} 0.9-2.4 [facility] Serum or plasma calcium herberth urement (mass/volume)Ordered By: Natividad Yee on 03-22-2023 Calcium [Mass/Vol] 9.3 mg/dL 8.5-10.1 [facility] Serum or plasma creatinine m easurement (mass/volume)Ordered By: Natividad Hills on 03-22-2023 Creatinine [Mass/Vol] 0.71 mg/dL 0.55-1.02 [facility] Comment on above: The validity of the calculated GFR & GFRAA in patients over 70 years has not been determined. Clinical correlation is essential. Serum or plasma urea nitroge n measurement (mass/volume)Ordered By: Natividad Yee on 03-22-2023 Urea nitrogen [Mass/Vol] 16 mg/dL 7-18 [facility] Thin prep Papanicolaou smear with manual screeningOrdered By: Nativdiad Yee on 03-22-2023 Thin prep Papanicolaou smear with manual screening 9 U/L 15-37 [facility] Thin prep Papanicolaou smear with manual screening 5 5-15 [facility] - Drug toxicology Ordered By: Dr. Layne on 08-17-2022 Amphetamines Ql (U) Negative <1000 ng/mL [facility] Benzodiazepines Ql (U) Negative < 200 ng/mL [facility] Cannabinoids Screen Ql (U) Negative < 50 ng/mL [facility] Cocaine Ql (U) Negative < 300 ng/mL [facility] Opiates Ql (U) Negative < 300 ng/mL [facility] No Panel InformationOrdered By: Dr. Layne on 08-17-2022 MDMA (Ecstasy) Screen Negative < 500 ng/mL [facility] Miscellaneous Test See comment [facility] Comment on above: TEST RESULTS LIMITST ramadol Tramadol Positive Ifpuji=[id number] Tramadol Conf, [place], [place] 2720 ng/mL Nrhqvq=[id number] TESTING PERFORMED AT [facility]. ORIGINAL REPORT ON FILE IN LAB CONTAINS ADDITIONAL TEST SITE INFORMATION. Urine Barbiturates Screen Negative < 200 ng/mL [facility] Urine Drug Screen Comment [facility] Comment on above: CONFIRMATORY TESTING FOR [...] TESTING MUST BE ORDERED SEPARATELY. USE TESTMNEMONIC: [facility] Urine Methadone Screen Negative < 300 ng/mL [facility] Urine phencyclidine (PCP) de tectionOrdered By: Dr. Layne on 08-17-2022 Phencyclidine Ql (U) Negative < 25 ng/mL [facility] EMG(NEURO/NI)on 08-05-2022 [facility] - Drug toxicology Ordered By: Dr. Layne on 07-20-2022 Amphetamines Ql (U) Negative <1000 ng/mL [facility] Benzodiazepines Ql (U) Negative < 200 ng/mL [facility] Cannabinoids Screen Ql (U) Negative < 50 ng/mL [facility] Cocaine Ql (U) Negative < 300 ng/mL [facility] Opiates Ql (U) Negative < 300 ng/mL [facility] No Panel InformationOrdered By: Dr. Layne on 07-20-2022 MDMA (Ecstasy) Screen Negative < 500 ng/mL [facility] Miscellaneous Test See comment [facility] Comment on above: TEST RESULT LIMITSTr amadol Negative ng/mL Ounyso=200 ____ TESTING PERFORMED AT [facility]. ORIGINAL REPORT ON FILE IN LAB CONTAINS ADDITIONAL TEST SITE INFORMATION. Urine Barbiturates Screen Negative < 200 ng/mL [facility] Urine Drug Screen Comment [facility] Comment on above: CONFIRMATORY TESTING FOR [...] TESTING MUST BE ORDERED SEPARATELY. USE TESTMNEMONIC: [facility] Urine Methadone Screen Negative < 300 ng/mL [facility] Urine phencyclidine (PCP) de tectionOrdered By: Dr. Layne on 07-20-2022 Phencyclidine Ql (U) Negative < 25 ng/mL [facility] Basophil percentageon 2021 Basophil percentage < 0.9 mg/dL 0.55-1.[address] [facility] Work Phone: No Panel Informationon 11-09 Bedside Estimated GFR (eGFR) > 60.0000 mL/min >60 [facility] Work Phone: COMPREHENSIVE METABOLIC PANE Kong 10-17-2020 Albumin [Mass/Vol] 4.7 g/dL Normal 3.6-5.1 [facility] Comment on above: Performed By: #### 1 0231, 11773 #### [facility] of [address], [address] [place] [address] Software Tools Developer: Marcelino Matthews MD Albumin/Globulin [Mass ratio] 1.9 {ratio} Normal 1.0-2.5 [facility] Comment on above: Performed By: #### 1 0231, 42040 #### [facility] of [place] [address] Software Tools Developer: Marcelino Matthews MD ALP [Catalytic activity/Vol] 65 U/L Normal 31-125 [facility] Comment on above: Performed By: #### 1 0231, 24022 #### [facility] of [place] [address] Software Tools Developer: Marcelino Matthews MD ALT [Catalytic activity/Vol] 13 U/L Normal 6-29 [facility] Comment on above: Performed By: #### 1 0231, 81434 #### [facility] of [place] [address] Software Tools Developer: Marcelino Matthews MD AST [Catalytic activity/Vol] 15 U/L Normal 10-35 [facility] Comment on above: Performed By: #### 1 0231, 83758 #### [facility] of [place] [address] Software Tools Developer: Marcelino Matthews MD Bilirubin [Mass/Vol] 0.5 mg/dL Normal 0.2-1.2 [facility] Comment on above: Performed By: #### 1 0231, 92487 #### [facility] of [place] [address] Software Tools Developer: Marcelino Matthews MD BUN/CREATININE RATIO NOT APPLICABLE Normal 6-22 [facility] Diagnostics Comment on above: Performed By: #### 1 0231, [id number] #### [facility] [place] [address] Software Tools Developer: Marcelino Matthews MD Calcium [Mass/Vol] 9.7 mg/dL Normal 8.6-10.2 [facility] Comment on above: Performed By: #### 1 0231, [id number] #### [facility] [place] [address] Software Tools Developer: Marcelino Matthews MD Chloride [Moles/Vol] 102 mmol/L Normal 98-110 Ques t Diagnostics Comment on above: Performed By: #### 1 0231, [id number] #### [facility] [place] [address] Software Tools Developer: Marcelino Matthews MD CO2 [Moles/Vol] 31 mmol/L Normal 20-32 [facility] Comment on above: Performed By: #### 1 0231, [id number] #### [facility] [place] [address] Software Tools Developer: Marcelino Matthews MD Creatinine [Mass/Vol] 0.83 mg/dL Normal 0.50-1.[address] [facility] Comment on above: Performed By: #### 1 0231, [id number] #### [facility] [place] [address] Software Tools Developer: Marcelino Matthews MD eGFR NON-AFR. SENEGALESE 84 mL/min/1.73m2 Normal > OR = 60 [facility] Comment on above: Performed By: #### 1 0231, 83759 #### [facility] [place] [address] Software Tools Developer: Marcelino Matthwes MD GFR/1.73 sq M.predicted among blacks MDRD (S/P/Bld) [Vol rate/Area] 97 mL/min/{1.73_m2} Normal > OR = 60 [facility] Comment on above: Performed By: #### 1 0231, [id number] #### [facility] [place] [address] Software Tools Developer: Marcelino Matthews MD Globulin (S) [Mass/Vol] 2.5 g/dL Normal 1.9-3.7 [facility] Comment on above: Performed By: #### 1 0231, 07431 #### [facility] [place] [address] Software Tools Developer: Marcelino Matthews MD Glucose [Mass/Vol] 100 mg/dL High 65-99 [facility] Comment on above: Result Comment: Fasting reference interval For someone without known diabetes, a glucose value between 100 and 125 mg/dL is consistent with prediabetes and should be confirmed with a follow-up test. Performed By: #### 1 0231, 84710 #### [facility] [place] [address] Software Tools Developer: Marcelino Matthews MD Potassium [Moles/Vol] 4.2 mmol/L Normal 3.5-5.[address] [facility] [address] [facility] Comment on above: Performed By: #### 1 0231, 71016 #### [facility] [place] [address] Software Tools Developer: Marcelino Matthews MD Protein [Mass/Vol] 7.2 g/dL Normal 6.1-8.1 [facility] Comment on above: Performed By: #### 1 0231, 02238 #### [facility] [place] [address] Software Tools Developer: Marcelino Matthews MD Sodium [Moles/Vol] 138 mmol/L Normal 135-146 [facility] Comment on above: Performed By: #### 1 0231, 30785 #### [facility] [place] [address] Software Tools Developer: Marcelino Matthews MD Urea nitrogen [Mass/Vol] 10 mg/dL Normal 7-25 [facility] Comment on above: Performed By: #### 1 0231, 73571 #### [facility] [address] [place] [address] Software Tools Developer: Marcelino Matthews MD SARS COV 2 AB (IGG) Monica VO 10-17-2020 SARS-CoV-2 (COVID-19) Ab IA Qn 4.65 index High <1.00 [facility] Comment on above: Result Comment: Reference [...] providers and patients using the following websites: https://www.[employer]/home/Covid-19/HCP/antibody/ fact-sheet8 https://www.[employer].com/home/Covid-19/Patients/ antibody/fact-sheet8 Healthcare Providers: For additional information please refer to: http://education.[employer]/faq/DOG297 (This link is being provided for informational/ educational purposes only.) This test has been authorized by the FDA under an Emergency Use Authorization (EUA) for use by authorized laboratories. The FDA authorized labeling is available on the [employer] website: www.[employer]/Covid19. Performed By: #### 1 0231, 64702 #### [facility] [place] [id number] [facility], [address] [place] [address] Software Tools Developer: Marcelino Matthews MD Office Visit: Establish Care on 11-17-2015 Protein mass conc Done [facility] Work Phone: [phone] Tobacco smoking status WA[facility] Never [facility] Work Phone: [phone] Tobacco smoking status [facility] Never smoker [facility] Work Phone: [phone] Vital Signs Date Time Vital Sign Value Performing Clinician Facility 01-30-2025 15:12-0400 Body height 170.2 cm sIra Godfrey MD Work Phone: [facility] 01-30-2025 15:12-0400 Body mass index (BMI) [Ratio] 24.75 kg/m2 Isra Godfrey MD Work Phone: [facility] 01-30-2025 15:12-0400 Body weight 71.67 kg Isra Godfrey MD Work Phone: [facility] 01-30-2025 15:12-0400 Diastolic blood pressure 70 mm[Hg] Isra Godfrey MD Work Phone: [facility] 01-30-2025 15:12-0400 Heart rate 75 /min Isra Godfrey MD Work Phone: [facility] 01-30-2025 15:12-0400 SaO2% (BldA) [Mass fraction] 98 % Isra Godfrey MD Work Phone: [facility] 01-30-2025 15:12-0400 Systolic blood pressure 110 mm[Hg] Isra Godfrey MD Work Phone: [facility] 01-08-2025 10:05-0400 Body height 170.2 cm Kate Hernandez APRN - PARALEGAL SECRETARY Work Phone: [facility] 01-08-2025 10:05-0400 Body mass index (BMI) [Ratio] 25.06 kg/m2 Kate Hernandez FORESTRY SUPPORT SPECIALIST - PARALEGAL SECRETARY Work Phone: [facility] 01-08-2025 10:05-0400 Body weight 72.58 kg Kate Hernandez APRN - PARALEGAL SECRETARY Work Phone: [facility] 01-08-2025 10:05-0400 Diastolic blood pressure 78 mm[Hg] Kate Hernandez APRN - PARALEGAL SECRETARY Work Phone: [facility] 01-08-2025 10:05-0400 Heart rate 78 /min Kate Hernandez APRN - PARALEGAL SECRETARY Work Phone: [facility] 01-08-2025 10:05-0400 Systolic blood pressure 114 mm[Hg] Kate Hernandez APRN - PARALEGAL SECRETARY Work Phone: [facility] 12-10-2024 09:46-0400 Diastolic blood pressure 90 mm[Hg] Isra Godfrey MD Work Phone: [facility] 12-10-2024 09:46-0400 Systolic blood pressure 136 mm[Hg] Isra Godfrey MD Work Phone: [facility] 12-10-2024 09:37-0400 Body height 170.2 cm Isra Godfrey MD Work Phone: [facility] 12-10-2024 09:37-0400 Body mass index (BMI) [Ratio] 25.73 kg/m2 Isra Godfrey MD Work Phone: [facility] 12-10-2024 09:37-0400 Body weight 74.53 kg Isra Godfrey MD Work Phone: [facility] 12-10-2024 09:37-0400 Heart rate 76 /min Isra Godfrey MD Work Phone: [facility] 11-30-2024 09:19-0400 Body height 170.18 cm [employer] PA-C Work Phone: [facility] 11-30-2024 09:19-0400 Body mass index (BMI) [Ratio] 26.2 kg/m2 [employer] PA-C Work Phone: [facility] 11-30-2024 09:19-0400 Body temperature 97.5 [degF] [employer] PA-C Work Phone: [facility] 11-30-2024 09:19-0400 Body weight 75.74 kg [employer] PA-C Work Phone: [facility] 11-30-2024 09:19-0400 Diastolic blood pressure 92 mm[Hg] [employer] PA-C Work Phone: [facility] 11-30-2024 09:19-0400 Heart rate 77 /min [employer] PA-C Work Phone: [facility] 11-30-2024 09:19-0400 Respiratory rate 18 /min [employer] PA-C Work Phone: [facility] 11-30-2024 09:19-0400 SaO2% (BldA) [Mass fraction] 98 % [employer] PA-C Work Phone: [facility] 11-30-2024 09:19-0400 Systolic blood pressure 142 mm[Hg] [employer] PA-C Work Phone: [facility] 11-05-2024 19:36-0400 Body temperature 98 [degF] [employer] PA-C Work Phone: [facility] 11-05-2024 19:36-0400 Diastolic blood pressure 90 mm[Hg] [employer] PA-C Work Phone: [facility] 11-05-2024 19:36-0400 Heart rate 85 /min [employer] PA-C Work Phone: [facility] 11-05-2024 19:36-0400 Respiratory rate 18 /min [employer] PA-C Work Phone: [facility] 11-05-2024 19:36-0400 SaO2% (BldA) [Mass fraction] 100 % [employer] PA-C Work Phone: [facility] 11-05-2024 19:36-0400 Systolic blood pressure 143 mm[Hg] [employer] PA-C Work Phone: [facility] 11-05-2024 15:29-0400 Body height 170.18 cm [employer] PA-C Work Phone: [facility] 11-05-2024 15:29-0400 Body mass index (BMI) [Ratio] 26.7 kg/m2 [employer] PA-C Work Phone: [facility] 11-05-2024 15:29-0400 Body weight 77.38 kg [employer] PA-C Work Phone: [facility] 10-31-2024 11:00-0400 Diastolic blood pressure 81 mm[Hg] [employer] PA-C Work Phone: [facility] 10-31-2024 11:00-0400 Heart rate 114 /min [employer] PA-C Work Phone: [facility] 10-31-2024 11:00-0400 Respiratory rate 20 /min [employer] PA-C Work Phone: [facility] 10-31-2024 11:00-0400 SaO2% (BldA) [Mass fraction] 18 % [employer]ad [employer] PA-C Work Phone: [facility] 10-31-2024 11:00-0400 Systolic blood pressure 157 mm[Hg] Natividad [employer] PA-C Work Phone: [facility] 10-31-2024 07:20-0400 Body height 167.64 cm Natividad [employer] PA-C Work Phone: [facility] 10-31-2024 07:20-0400 Body mass index (BMI) [Ratio] 27.7 kg/m2 [employer]ad [employer] PA-C Work Phone: [facility] 10-31-2024 07:20-0400 Body temperature 98.4 [degF] [employer] PA-C Work Phone: [facility] 10-31-2024 07:20-0400 Body weight 77.88 kg [employer] PA-C Work Phone: [facility] 10-26-2024 08:30-0400 Body temperature 98.1 [degF] [employer] PA-C Work Phone: [facility] 10-26-2024 08:30-0400 Diastolic blood pressure 90 mm[Hg] [employer] PA-C Work Phone: [facility] 10-26-2024 08:30-0400 Heart rate 93 /min [employer] PA-C Work Phone: [facility] 10-26-2024 08:30-0400 Respiratory rate 18 /min [employer] PA-C Work Phone: [facility] 10-26-2024 08:30-0400 SaO2% (BldA) [Mass fraction] 100 % Nat[employer]ad [employer] PA-C Work Phone: [facility] 10-26-2024 08:30-0400 Systolic blood pressure 164 mm[Hg] Nat[employer]ad [employer] PA-C Work Phone: [facility] 10-26-2024 05:30-0400 Body mass index (BMI) [Ratio] 29 kg/m2 Natividad Joshua PA-C Work Phone: [facility] 10-26-2024 05:30-0400 Body weight 81.5 kg Natividad Joshua PA-C Work Phone: [facility] 11-16-2023 09:14-0400 Body mass index (BMI) [Ratio] 25.21 kg/m2 Lc Krishnan MD Work Phone: [facility] 11-16-2023 09:14-0400 Body temperature 98.1 [degF] Lc Krishnan MD Work Phone: [facility] 11-16-2023 09:14-0400 Body weight 73 kg Lc Krishnan MD Work Phone: [facility] 11-16-2023 09:14-0400 Diastolic blood pressure 84 mm[Hg] Lc Krishnan MD Work Phone: [facility] 11-16-2023 09:14-0400 Heart rate 93 /min Lc Krishnan MD Work Phone: [facility] 11-16-2023 09:14-0400 Respiratory rate 18 /min Lc Krishnan MD Work Phone: [facility] 11-16-2023 09:14-0400 SaO2% (BldA) [Mass fraction] 98 % Lc Krishnan MD Work Phone: [facility] 11-16-2023 09:14-0400 Systolic blood pressure 138 mm[Hg] Lc Krishnan MD Work Phone: [facility] 10-06-2023 11:49-0400 Body height 167.64 cm PA-C Natividad Joshua PA Work Phone: [facility] 10-06-2023 11:38-0400 Body mass index (BMI) [Ratio] 26.4 kg/m2 PA-C Natividad Joshua PA Work Phone: [facility] 10-06-2023 11:38-0400 Body weight 74.44 kg PA-C Natividad Joshua PA Work Phone: [facility] 10-06-2023 11:38-0400 Diastolic blood pressure 82 mm[Hg] PA-C Natividad Joshua PA Work Phone: [facility] 10-06-2023 11:38-0400 Systolic blood pressure 122 mm[Hg] PA-C Natividad Yee PA Work Phone: [facility] 08-12-2022 13:49-0500 Diastolic blood pressure 94 mm[Hg] Salvador Arshad MD Work Phone: [facility] 08-12-2022 13:49-0500 Systolic blood pressure 140 mm[Hg] Salvador Arshad MD Work Phone: [facility] 08-12-2022 13:42-0500 Body height 170.2 cm Salvador Arshad MD Work Phone: [facility] 08-12-2022 13:42-0500 Body weight 70.67 kg Salvador Arshad MD Work Phone: [facility] 08-12-2022 13:42-0500 Heart rate 74 /min Salvador Arshad MD Work Phone: [facility] 08-12-2022 13:42-0500 SaO2% (BldA) [Mass fraction] 97 % Salvador Arshad MD Work Phone: [facility] 11-30-2021 09:33-0400 Body temperature 97.81 [degF] Latoya Athy PA-C Work Phone: [facility] 11-30-2021 09:33-0400 Body weight 66.95 kg Latoya Athy PA-C Work Phone: [facility] 11-30-2021 09:33-0400 Diastolic blood pressure 68 mm[Hg] Latoya Athy PA-C Work Phone: [facility] 11-30-2021 09:33-0400 Heart rate 80 /min Latoya Athy PA-C Work Phone: [facility] 11-30-2021 09:33-0400 Respiratory rate 16 /min Latoya Clement PA-C Work Phone: [facility] 11-30-2021 09:33-0400 SaO2% (BldA) [Mass fraction] 96 % Latoya Clement PA-C Work Phone: [facility] 11-30-2021 09:33-0400 Systolic blood pressure 120 mm[Hg] Latoya Clement PA-C Work Phone: [facility] 11-24-2021 11:00-0400 Body temperature 97.81 [degF] Palak Velazco APRN.PARALEGAL SECRETARY Work Phone: [facility] 11-24-2021 11:00-0400 Body weight 68.04 kg Palak Velazco APRN.PARALEGAL SECRETARY Work Phone: [facility] 11-24-2021 11:00-0400 Diastolic blood pressure 74 mm[Hg] Palak Velazco APRN.PARALEGAL SECRETARY Work Phone: [facility] 11-24-2021 11:00-0400 Heart rate 104 /min Palak Velazco APRN.PARALEGAL SECRETARY Work Phone: [facility] 11-24-2021 11:00-0400 Respiratory rate 18 /min Palak Velazco APRN.PARALEGAL SECRETARY Work Phone: [facility] 11-24-2021 11:00-0400 SaO2% (BldA) [Mass fraction] 98 % Palak Velazco APRN.PARALEGAL SECRETARY Work Phone: [facility] 11-24-2021 11:00-0400 Systolic blood pressure 126 mm[Hg] Palak Velazco APRN.PARALEGAL SECRETARY Work Phone: [facility] 11-07-2021 17:16-0400 Body height 167.64 cm PA-C [employer] PA Work Phone: [facility] 11-07-2021 17:16-0400 Body mass index (BMI) [Ratio] 23.8 kg/m2 PA-C [employer] PA Work Phone: [facility] Work Phone: 11-07-2021 17:16-0400 Body temperature 97.5 [degF] PA-C Natividad Joshua PA Work Phone: [facility] Work Phone: 11-07-2021 17:16-0400 Body weight 67.13 kg PA-C Natividad [employer] PA Work Phone: [facility] Work Phone: 11-07-2021 17:16-0400 Diastolic blood pressure 98 mm[Hg] PA-C [employer]ividad [employer] PA Work Phone: [facility] Work Phone: 11-07-2021 17:16-0400 Heart rate 86 /min PA-C Natividad [employer] PA Work Phone: [facility] Work Phone: 11-07-2021 17:16-0400 Respiratory rate 16 /min PA-C [employer] PA Work Phone: [facility] Work Phone: 11-07-2021 17:16-0400 SaO2% (BldA) [Mass fraction] 99 % PA-C [employer] PA Work Phone: [facility] Work Phone: 11-07-2021 17:16-0400 Systolic blood pressure 166 mm[Hg] PA-C Antividad [employer] PA Work Phone: [facility] Work Phone: 08-24-2021 12:29-0400 Body height 167.64 cm PA-C Natividad Joshua PA Work Phone: [facility] Work Phone: 08-24-2021 12:29-0400 Body mass index (BMI) [Ratio] 24.3 kg/m2 PA-C [employer] PA Work Phone: [facility] Work Phone: 08-24-2021 12:29-0400 Body temperature 97.2 [degF] PA-C Natividad [employer] PA Work Phone: [facility] Work Phone: 08-24-2021 12:29-0400 Body weight 68.49 kg PA-C [employer] PA Work Phone: [facility] Work Phone: 08-24-2021 12:29-0400 Diastolic blood pressure 96 mm[Hg] PA-C [employer] PA Work Phone: [facility] Work Phone: 08-24-2021 12:29-0400 Heart rate 93 /min PA-C [employer] PA Work Phone: [facility] Work Phone: 08-24-2021 12:29-0400 Respiratory rate 16 /min PA-C [employer] PA Work Phone: [facility] Work Phone: 08-24-2021 12:29-0400 SaO2% (BldA) [Mass fraction] 98 % PA-C [employer] PA Work Phone: [facility] Work Phone: 08-24-2021 12:29-0400 Systolic blood pressure 134 mm[Hg] PA-C [employer] PA Work Phone: [facility] Work Phone: 11-17-2015 12:50-0400 BMI (Body Mass Index) 25.53 kg/m2 Brook Vasquez RN [facility] Work Phone: 11-17-2015 12:50-0400 Body Temperature 98.4 [degF] Brook Vasquez RN [facility] Work Phone: 11-17-2015 12:50-0400 [...] Date Encounter Type Care Provider Facility Start: 03-25-2025 ambulatory [facility] Facility: [facility] Start: 03-22-2025 End: 03-22-2025 Refill Alysha Ascencio [facility]iology - [place] Start: 01-30-2025 End: 01-30-2025 Office outpatient visit 25 minutes Isra Godfrey MD Work Phone: [facility] Cardiology [facility] [place] Comment on above: Racing heart beat (P rimary Dx); Essential hypertension Start: 01-30-2025 End: 01-30-2025 ambulatory ISRA GODFREY [facility] Start: 01-24-2025 End: 01-24-2025 Telephone encounter Salvador Arshad MD Work Phone: Neurology Comment on above: Appointment (01/24/25 Appt Issue) Start: 01-24-2025 ambulatory SALVADOR Romero ity:[facility] Start: 01-17-2025 End: 01-17-[address] Ramesh Coffey DO Work Phone: -Laboratory [place] [facility] Start: 01-17-2025 End: 01-17-[address] Kala Solares MD -Laboratory [place] [facility] Start: 01-17-2025 End: 01-17-2025 ambulatory [facility] Facility:[facility] Start: 01-14-2025 End: 01-14-[address] Ramesh Coffey DO Work Phone: -Sleep Lab Start: 01-14-2025 End: 01-14-[address] Kala Solares MD -Sleep Lab Work Phone: Start: 01-14-2025 End: 01-14-2025 ambulatory [facility] Facility:[facility] Start: 01-10-2025 End: 01-10-2025 Subsequent hospital visit by physician Kate Hernandez APRN - [place] Work Phone: [facility] Non-Invasive Cardiology Comment on above: Palpitations; Racing heart beat; Yesica-Danlos syndrome type III; Near syncope; Essential hypertension; Shortness of breath Start: 01-10-2025 End: 01-10-2025 ambulatory [facility] Start: 01-08-2025 End: 01-08-2025 ambulatory [facility] Start: 01-08-2025 End: 01-08-2025 Office outpatient visit 25 minutes Kate Hernandez APRN - PARALEGAL SECRETARY Work Phone: [facility] Cardiology [facility] [place] Comment on above: Palpitations (Primar y Dx); Racing heart beat; Yesica-Danlos syndrome type III; Near syncope; Essential hypertension; Shortness of breath Start: 01-07-2025 End: 01-07-2025 Telephone encounter Isra Godfrey MD Work Phone: [facility] Cardiology [facility] [place] Comment on above: Other (Awaking durin g the night, increased heart rate, increased BP ) Start: 12-10-2024 End: 12-10-2024 Office outpatient new 45 minutes Isra Godfrey MD Work Phone: [facility] Cardiology - [place] Comment on above: Near syncope (Primar y Dx); Essential hypertension; Racing heart beat; Yesica-Danlos syndrome type III Start: 12-10-2024 End: 12-10-2024 ambulatory [facility] Start: 12-05-2024 ambulatory [facility] Facility: [facility] Start: 12-05-2024 Non-patient / Non-visit Dr. Alejandro Lugo MD -[facility] Start: 12-05-2024 End: 12-05-2024 ambulatory NatividadSEE Forge PA-C Work Phone: -[facility] Start: 12-05-2024 End: 12-05-[address] Anay Lugo MD -[facility] Work Phone: Start: 12-04-2024 End: 12-04-2024 ambulatory Natividad Hills PA-C Work Phone: -Cat Scan [facility] Start: 12-04-2024 End: 12-04-[address] Kala Solares MD -Cat Scan [facility] Work Phone: Start: 12-04-2024 End: 12-05-2024 ambulatory NatividadSEE Forge PA-C Work Phone: -Laboratory Start: 12-04-2024 End: 12-04-[address] Kala Solares MD -Laboratory Work Phone: Start: 12-04-2024 Non-patient / Non-visit Dr. eMg parikh MD -[facility] Work Phone: Start: 12-04-2024 End: 12-04-2024 ambulatory [facility] Facility:[facility] Start: 11-30-2024 End: 11-30-[address] Anay Luog MD -[facility] Work Phone: Start: 11-30-2024 End: 11-30-2024 ambulatory Natividad Joshua PA-C Work Phone: [facility] Work Phone: Start: 11-27-2024 Non-patient / Non-visit Dr. Nicole COLLINS -[facility] Start: 11-27-2024 End: 11-27-2024 ambulatory Natividad Joshua PA-C Work Phone: -Cardiovascular Services Start: 11-27-2024 End: 11-27-[address] Kala Solares MD -Cardiovascular Services Work Phone: Start: 11-26-2024 End: 11-27-2024 ambulatory Natividad Joshua PA-C Work Phone: -Outpatient Breast Imaging Start: 11-26-2024 End: 11-26-[address] Kala Solares MD -Outpatient Breast Imaging Work Phone: Start: 11-26-2024 End: 11-26-2024 ambulatory Kala Solares Facility:[facility] Start: 11-05-2024 End: 11-05-2024 Emergency department patient visit Natividad Joshua PA-C Work Phone: -Emergency Department Work Phone: Start: 10-31-2024 End: 10-31-2024 Emergency department patient visit Natividad Joshua PA-C Work Phone: -Emergency Department Work Phone: Start: 10-26-2024 End: 10-26-2024 Emergency department patient visit Natividad Joshua PA-C Work Phone: -Emergency Department Work Phone: Start: 09-06-2024 End: 09-06-2024 ambulatory [facility] PA-C Work Phone: [facility] Work Phone: Start: 09-06-2024 End: 09-06-2024 Patient encounter procedure Elinor SEO -Laboratory, Specimen Work Phone: Start: 09-06-2024 End: 09-06-2024 ambulatory Natividad COMBS Facility:[facility] Start: 03-15-[address] [facility] Start: 11-16-2023 End: 11-16-2023 Patient encounter procedure Lc Krishnan MD Work Phone: [facility] Comment on above: Paronychia of great toe of right foot (Primary Dx); Pediculosis capitis Start: 10-06-2023 End: 10-06-2023 ambulatory JANNETH COMBS Work Phone: [facility] Work Phone: Start: 10-06-2023 End: 10-06-2023 Patient encounter procedure JANNETH COMBS Work Phone: [facility]-Laboratory, Specimen Work Phone: Start: 10-06-2023 End: 10-06-2023 Patient encounter procedure JANNETH COMBS Work Phone: [facility] Work Phone: Start: 03-22-2023 End: 03-22-2023 ambulatory [facility] Work Phone: Start: 03-22-2023 End: 03-22-2023 Patient encounter procedure [facility]-Laboratory, [place] Work Phone: Start: 11-18-2022 End: 11-18-2022 ambulatory [facility] Work Phone: Start: 11-18-2022 End: 11-18-2022 Discharged Recurring [facility]-Physical Therapy Work Phone: Start: 09-30-2022 Registered Recurring JANNETH COMBS Work Phone: [facility]-Physical Therapy Start: 09-27-2022 End: 09-27-2022 ambulatory PA-C Natividad Yee PA Work Phone: [facility] Work Phone: Start: 09-27-2022 End: 09-27-2022 Patient encounter procedure PA-C Natividad Yee PA Work Phone: [facility]-Outpatient Breast Imaging Start: 08-19-2022 Registered Recurring PA-Zeke Yee PA Work Phone: [facility]-Physical Therapy Start: 08-17-2022 End: 08-17-2022 ambulatory PA-C Natividad Yee PA Work Phone: [facility] Work Phone: Start: 08-17-2022 End: 08-17-2022 Patient encounter procedure PA-Zeke Yee PA Work Phone: [facility]-Laboratory Start: 08-13-2022 ambulatory Salvador pham MD Work Phone: Neurology Comment on above: pain psychology Start: 08-13-2022 E-mail encounter fahad m caregiver Salvador Arshad MD Work Phone: [facility] Start: 08-12-2022 End: 08-12-2022 Patient encounter procedure Salvador Arshad MD Work Phone: Neurology Comment on above: [...] Neur Stro (Max Weight: 300) Work Phone: [facility] Start: 08-05-2022 Telephone encounter Salvador Arshad MD Work Phone: Neurology Comment on above: Forms ([facility] ) Start: 07-26-2022 Registered Recurring JANNETH COMBS Work Phone: [facility] Therapy Start: 07-20-2022 End: 07-20-2022 Orders Only Priscila Umaña Work Phone: Neurology Comment on above: Chronic left-sided l umbar radiculopathy (Primary Dx) Start: 07-20-2022 End: 07-20-2022 Patient encounter procedure PARadha COMBS Work Phone: [facility]Labor[facility] Start: 06-21-2022 Non-patient / Non-visit JANNETH COMBS Work Phone: [facility] Start: 06-21-2022 End: 06-21-2022 ambulatory PA-Zeke COMBS Work Phone: [facility] Work Phone: Start: 06-21-2022 End: 06-21-2022 Patient encounter procedure PA-Zeke COMBS Work Phone: [facility]Cardi[facility] Start: 11-30-2021 Telephone encounter Latoya cifuentes PA-C Work Phone: [facility] Comment on above: Prescription Request to Different Pharmacy Start: 11-30-2021 End: 11-30-2021 Patient encounter procedure Latoya Clement PA-C Work Phone: [facility] Comment on above: Hordeolum externum o f right upper eyelid (Primary Dx) Start: 11-24-2021 Telephone encounter No Pcp [facility] Comment on above: Results Start: 11-24-2021 End: 11-24-2021 Patient encounter procedure Palak Velazco APRN.PARALEGAL SECRETARY Work Phone: [facility] Comment on above: Close exposure to [place] VID-19 virus (Primary Dx) Start: 11-09-2021 End: 11-09-2021 Patient encounter procedure JANNETH COMBS Work Phone: [facility] Start: 11-07-2021 End: 11-07-2021 Emergency department patient visit JANNETH COMBS Work Phone: [facility]Emergency Department Start: 08-24-2021 Non-patient / Non-visit JANNETH COMBS Work Phone: [facility] Start: 08-24-2021 End: 08-24-2021 Emergency department patient visit JANNETH COMBS Work Phone: [facility] Procedures Date Procedure Procedure Detail Performing Clinician Start: 01-30-2025 Adult depression screening assessment Isra Godfrey MD Work Phone: Start: 01-17-[address] Ramesh Coffey DO Work Phone: Start: 01-17-[address] hormone measurement Dr. Ramesh Coffey DO Work Phone: Comment on above: FEMALE:Follicular: 1.4 - 18.1 mIU/mLMidc ycle: 3.4 - 33.4 mIU/mLLuteal: 1.5 - 9.1 mIU/mLPost Menopause: 23.0 - 116.3 mIU/mLMALE: 1.4 - 18.1 mIU/mL Start: 01-17-[address] Ramesh Coffey DO Work Phone: Comment on above: Follicular phase 0.1 - 0.9 Luteal phase 1.8 - 23.9 Ovulation phase 0.1 - 12.0 First trimester 11.0 - 44.3 Second trimester 25.4 - 83.3 Third trimester 58.7 - 214.0 Postmenopausal 0.0 - 0.1Performed at: [address], [place] [id number] Director: Kalpesh Thompson PhD, Phone: [phone] Start: 01-17-[address] Kwame Coffey DO Work Phone: Comment on above: Thyroglobulin Antibody measured by Zack almanzar CoulterMethodologyIt should be noted that the presence of thyroglobulinantibodies may not be pathogenic nor diagnostic, especiallyat very low levels. The assay computer assembler has found thatfour percent of individuals without evidence of thyroiddisease or autoimmunity will have positive TgAb levels upto 4 IU/mL.Performed at: [facility] [address] [id number] [place], [place] [id number] Director: Kalpesh Thompson PhD, Phone: [phone] Start: 01-08-2025 Ecg routine ecg w/least 12 lds w/i&r Julienne Skinner MD Work Phone: Start: 12-10-2024 Ecg routine ecg w/least 12 lds w/i&r Isra Godfrey MD Work Phone: Start: 12-05-2024 Ultrasonography guided biopsy of breast Natividad Joshua PA-C Work Phone: Start: 12-05-2024 US Breast Bx EA Add Lesion Natividad Cornell s PA-C Work Phone: Start: 12-04-2024 CT of abdominal vascular structures [facility] PA-C Work Phone: Start: 12-04-2024 Aldosterone measurement, serum Dr. Ramesh Coffey DO Work Phone: Comment on above: Performed at: [address] [id number] Director: Dagoberto Moon MD, Phone: [phone] Start: 12-04-2024 Procedure Natividad Joshua PA-C Work Phone: Comment on above: Test Ordered: [id number] Metanephrines, Frac ., Pl. FreeTest(s) 782849-Djbjxvkvtzqrcer, Pl; [id number]-Bkxdifdriqti, Plwas developed and its performance characteristicsdetermined by [employer]. It has not been cleared or approvedby the Food and Drug Administration.Normetanephrine, Pl 72.0 pg/mL BN Reference Range: 0.0-244.0Metanephrine, Pl 25.8 pg/mL BN Reference Range: 0.0-88.0Performed at: [facility] - Lab[address] [id number] Director: Dagoberto Moon MD, Phone: [phone] at: [address] [id number] Director: Kalpesh Thompson PhD, Phone: [phone] Start: 11-27-2024 CT angiography of coronary [facility] Work Phone: Start: 11-26-2024 End: 11-26-2024 [facility] Work Phone: Start: 11-26-2024 Ultrasonography of breast [facility] [employer] Work Phone: Start: 11-05-2024 X-ray of chest, PA and lateral views [facility] [employer] Work Phone: Start: 11-05-2024 D-dimer assay, quantitative [facility] [employer] Work Phone: Comment on above: NORMAL D-Dimer level (<0.50) indicates n o DVT or PE. Start: 11-05-2024 Estimated creatinine clearance Natividad [employer] Work Phone: Start: 10-31-2024 [facility] [employer] Work Phone: Start: 10-31-2024 Estimated creatinine clearance [facility] [employer] Work Phone: Start: 10-26-2024 Urnls dip stick/tablet reagent auto microscopy [facility] [employer] Work Phone: Start: 10-26-2024 Estimated creatinine clearance [facility] [employer] Work Phone: Start: 10-06-2023 Genital Culture PA-Zeke Natividad Yee PA Work Phone: Start: 10-06-2023 Investigation of transfusion reaction JANNETH Natividad Yee PA Work Phone: Start: 09-27-2022 Screening mammography GARRET-Zeke Natividad Nakia COMBS Work Phone: Start: 08-05-2022 Nerve conduction studies 5-6 studies Ayah Whiting MD Work Phone: Start: 11-09-2021 CT of abdominal aorta with contrast GARRET-Zeke Natividad Yee GARRET Work Phone: Start: 11-17-2015 Screening mammography Screening mammogram Brook Vasquez RN Start: 11-17-2015 Thyroid disorder screening Screening for thyroid disorder Brook Vasquez RN Start: 04-19-2007 Josseline Velazco APRN.[facility] Work Phone: Plan of Treatment Date Care Activity Detail Author Start: 2048 RSV Immunization for Adults (1 - 1-dose 75+ series) RSV Immunization for Adults (1 - 1-dose 75+ series) [facility] Start: 01-30-2026 Depression Screening Depression Screening [facility] Start: 11-26-2025 Screening for malignant neoplasm of breast Mammogram [facility] Start: 02-04-2025 COVID-19 Vaccine ( season) COVID-19 Vaccine () [facility] Start: 02-04-2025 Influenza vaccination Influenza Vaccine (#1) [facility] Start: 01-30-2025 End: 01-30-2025 Patient encounter procedure 01/30/2025 3:00 PM EDT Office Visit [facility] [address] [facility] [address] [place] [address] Isra Godfrey MD [address] [facility] [address] [place] [address] [facility] [place] Start: 01-29-2025 End: 01-29-2025 Patient encounter procedure 01/29/2025 11:00 AM EDT Office Visit [facility] [place] [address] [facility] [address] [place] [phone] Anitha Rosa APRN - CNP [address] [facility] [address] [place] [address] [facility] Start: 01-17-2025 [facility] Start: 01-10-2025 End: 01-10-2025 Patient encounter procedure 01/10/2025 10:00 AM EDT Appointment [facility] Non-Invasive Cardiology [address] [place] [phone] Kate Hernandez APRN - CNP [address] [facility] [address] [place] [address] [facility] Non-Invasive Cardiology Start: 01-08-2025 End: 01-08-2027 Cardiac holter monitor (8- 15 days) Cardiac holter monitor (8- 15 days) [facility] Routine Palpitations Racing heart beat Yesica-Danlos syndrome type III Near syncope Essential hypertension Shortness of breath Expected: 01/08/2025, Expires: 01/08/2027 [facility] Work Phone: Comment on above: Expected: 01/08/2025, Expires: Start: 01-08-2025 End: 01-08-2025 Patient encounter procedure 01/08/2025 10:00 AM EDT Office Visit [facility] - [place] [address] [facility] [address] [place] [phone] Kate Hernandez APRN - CNP [address] [facility] [address] [place], [place] [phone] [facility] Card[facility] [place] Start: 11-05-2024 [facility] Start: 11-05-2024 [facility] Start: 10-31-2024 [facility] Start: 10-26-2024 [facility] Start: 10-26-2024 [facility] Start: 02-05-2024 COVID-19 Vaccine ( season) COVID-19 Vaccine ( season) [facility] Start: 02-05-2024 Influenza vaccination Influenza Vaccine (Season Ended) [facility] Start: 08-06-2023 DIABETES SCREEN DIABETES SCREEN [facility] Start: 08-06-2023 Diabetes Screening Diabetes Screening [facility] Start: 06-06-2023 Behavioral Health Screening Behavioral Health Screening [facility] Start: 2023 Pneumococcal Vaccine: 50+ (1 of 1 - PCV) Pneumococcal Vaccine: 50+ (1 of 1 - PCV) [facility] Start: 2023 Pneumococcal Vaccine: 50+ Years (1 of 1 - PCV) Pneumococcal Vaccine: 50+ Years (1 of 1 - PCV) [facility] Start: 2023 Shingrix Vaccine (1 of 2) Shingrix Vaccine (1 of 2) [facility] Start: 2023 Zoster Vaccines (1 of 2) Zoster Vaccines (1 of 2) [facility] Start: 02-04-2023 Covid-19 Vaccine ( season) Covid-19 Vaccine ( season) [facility] Start: 08-17-2022 Procedure [facility] Start: 06-06-2022 DEPRESSION ASSESSMENT DEPRESSION ASSESSMENT [facility] Start: 02-04-2022 Influenza vaccination [facility] Start: 11-24-2021 End: 12-08-2021 Influenza virus A and B RNA and SARS-CoV-2 (COVID-19) N gene panel - Respiratory specimen by KEYSHA with probe detection [facility] Work Phone: Comment on above: Expected: 11/24/2021, Expires: Start: 2018 COLOGUARD (FIT-DNA) COLOGUARD (FIT-DNA) [facility] Start: 2018 Colonoscopy COLONOSCOPY [facility] Start: 2018 COLORECTAL CANCER SCREENING COLORECTAL CANCER SCREENING [facility] Start: [address] COLONOGRAPHY [facility] Start: 2018 FECAL OCCULT BLOOD FECAL OCCULT BLOOD [facility] Start: 2018 Lipid panel Lipid Screening [facility] Start: 2018 LIPID SCREEN LIPID SCREEN [facility] Start: 2018 Screening for malignant neoplasm of colon [facility] Start: 2018 SIGMOIDOSCOPY SIGMOIDOSCOPY [facility] Start: 02-10-2017 End: 02-10-2017 Xtrnl mobile cv telemetry w/i&report 30 days 30 Day Holter Monitor [employer] Work Phone: Start: 11-17-2015 End: 11-17-2015 *CMP Complete Metabolic Panel *CMP Complete Metabolic Panel [employer] Work Phone: Start: 11-17-2015 End: 11-17-2015 Hemoglobin A1c/Hemoglobin.total mass fraction (Bld) *HgA1C [employer] Work Phone: Start: 11-17-2015 End: 11-17-2015 Lipid 1996 panel *Lipid Profile [employer] Work Phone: Start: 11-17-2015 End: 11-17-2015 Mammogram, screening Mammogram, Screening, both breasts [employer] Work Phone: Start: 11-17-2015 End: 11-17-2015 T3 free mass conc *T3-Free [employer] Work Phone: Start: 11-17-2015 End: 11-17-2015 T4 free mass conc *T4 free [employer] Work Phone: Start: 11-17-2015 End: 11-17-2015 Thyroglobulin mass conc *ATAB - Thyroglobulin Antibody [employer] Work Phone: Start: 11-17-2015 End: 11-17-2015 Thyrotropin Qn *TSH [employer] Work Phone: Start: 2013 Mammography MAMMOGRAM [facility] Start: 2013 Screening for malignant neoplasm of breast [facility] Start: 2003 HPV TESTING HPV TESTING [facility] Start: 2003 Screening for malignant neoplasm of cervix [facility] Start: 1994 PAP TESTING PAP TESTING [facility] Start: 1994 Screening for malignant neoplasm of cervix [facility] Start: 1992 DTaP/Tdap/Td Vaccines (1 - Tdap) DTaP/Tdap/Td Vaccines (1 - Tdap) [facility] Start: 1992 Hepatitis B Vaccine (1 of 3 - 19+ 3-dose series) Hepatitis B Vaccine (1 of 3 - 19+ 3-dose series) [facility] Start: 1992 Hepatitis B Vaccines (1 of 3 - 19+ 3-dose series) Hepatitis B Vaccines (1 of 3 - 19+ 3-dose series) [facility] Start: 1992 Urine microalbumin profile [facility] Start: 1991 Anxiety Screening Anxiety Screening [facility] Start: 1991 Depression Screening Depression Screening [facility] Start: 1991 Diabetes mellitus screening Diabetes Screening [facility] Start: 1991 HEPATITIS C SCREENING HEPATITIS C SCREENING [facility] Start: 1991 Hepatitis C screening Hepatitis C Screening [facility] Start: 1991 HIV SCREENING HIV SCREENING [facility] Start: 1991 HIV screening HIV Screening [facility] Start: 1985 Adult depression screening assessment DEPRESSION SCREENING [facility] Start: 1978 COVID-19 VACCINE (#1) COVID-19 VACCINE (#1) [facility] Start: 1974 MMR Vaccines (1 of 1 - Standard series) MMR Vaccines (1 of 1 - Standard series) [facility] Start: 1973 COVID-19 VACCINE (#1) COVID-19 VACCINE (#1) [facility] Start: 1973 HEPATITIS B (1 of 3 - 3-dose series) HEPATITIS B (1 of 3 - 3-dose series) [facility] Start: 1973 HIV screening HIV Screening [facility] Start: 1973 Lipid panel Lipid Panel [facility] Start: 1973 Screening for malignant neoplasm of colon [facility] Aldosterone [Mass/vo lume] in Serum or Plasma [facility] End: 01-10-2025 Cardiac holter monitor (8- 15 days) [facility] Work Phone: Comment on above: Once for 1 Occurrences starting 01/11/20 until 01/10/2025 Dehydroepiandrostero ne sulfate (DHEA-S) [Mass/volume] in Serum or Plasma [facility] End: 07-20-2023 EMG(NEURO/NI) EMG(NEURO/NI) EMG Routine Chronic left-sided lumbar radiculopathy 1 Occurrences starting 07/20/2022 until 07/20/2023 [facility] Work Phone: Comment on above: 1 Occurrences starting 07/20/2022 until 07/20/2023 Patient Education [facility] Work Phone: Patient referral [facility] Work Phone: Renin [Enzymatic activity/volume] in Plasma [facility] Thyroglobulin antibo dy measurement [facility] Thyroperoxidase Ab [Units/volume] in Serum or Plasma [facility] Payers Date Payer Category Payer Unknown [id number] 2024 Self-pay [id number] 2023 Commercial Managed [facility] [id number] 2022 Private Health Insurance [facility] SELF PAY [id number] 2022 Unknown [id number] 2021 Unknown [id number] 2019 Unknown [employer] PPO [id number] 2019-Present [phone] [address] [place] [address] PPO [id number] 2019 Unknown [id number] 1973 Unknown [id number] [id number]. 2.651 Unknown [id number] 2.16.840.1.537912.3.579. 2.462 Unknown [id number] 2.16.840.1.130290.3.579. 2.462 Unknown [id number] 2.16.840.1.306595.3.579. 2.462 Unknown [id number] 2.16.840.1.767670.3.579. 2.462 Unknown [id number] 2.16.840.1.655132.3.579. 2.462 Unknown [id number] 2.16.840.1.035431.3.579. 2.462 Unknown [id number] 2.16.840.1.483024.3.579. 2.462 Unknown [id number] 2.16.840.1.487478.3.579. 2.462 Unknown [id number] 2.16.840.1.585742.3.579. 2.462 Unknown [id number] 2.16.840.1.617205.3.579. 2.462 Unknown [id number] 2.16.840.1.670079.3.579. 2.462 Unknown [id number] 2.16.840.1.480035.3.579. 2.462 Unknown [id number] 2.16.840.1.027988.3.579. 2.462 Unknown [id number] 2.16.840.1.178041.3.579. 2.462 Unknown [id number] 2.16.840.1.036812.3.579. 2.462 Unknown [id number] 2.16.840.1.262236.3.579. 2.462 Unknown [id number] 2.16.840.1.384108.3.579. 2.462 Unknown [id number]. 2.462 Social History Date Type Detail Facility [facility] Work Phone: Start: 08-24-2021 End: 11-07-2021 Tobacco smoking status WAIS Unknown if ever smoked [facility] Start: 11-27-2019 Non-smoker [facility] Start: 1975 Sex Assigned At Female [facility] Start: 11-12-2016 End: 12-10-2024 Tobacco smoking status NHIS Never smoked tobacco [facility] Work Phone: History of tobacco use Cigarette Smoker [facility] Work Phone: Start: 11-12-2016 End: 12-10-2024 Tobacco use and exposure Smokeless tobacco non-user [facility] Work Phone: Start: 11-24-2021 End: 11-16-2023 Alcohol intake Current non-drinker of alcohol (finding) [facility] Start: 11-14-2021 End: 11-24-2021 Exposure to SARS-CoV-2 (event) Yes [facility] Work Phone: Start: 11-20-2021 End: 11-30-2021 Exposure to SARS-CoV-2 (event) Not sure [facility] Work Phone: Start: 11-16-2023 End: 01-30-2025 History of Social function [facility] Start: 11-16-2023 End: 01-30-2025 Tobacco use panel [facility] Work Phone: Start: 05-07-2012 National Score (1-10 0), lower number is lower risk 71 [facility] Start: 07-22-2020 Gender identity Identifies as female gender (finding) [facility] Start: 07-22-2020 Sexual orientation Heterosexual (fin ding) [facility] Start: 01-04-2022 End: 09-11-2024 Sex Female (finding) [facility] Start: 01-08-2025 End: 01-30-2025 Alcoholic beverage intake Ex-drinker (finding) [facility] Functional Status Date Assessment Result Facility 01-30-2025 Patient Health Quest ionnaire 2 item (PHQ-2) [Reported] [facility] 07-15-2014 Are you deaf, or do you have serious difficulty hearing No 07/15/2014 4:28 PM EST Anitha Alvarez LPN No [facility] 07-15-2014 Are you blind, or do you have serious difficulty seeing, even when wearing glasses No 07/15/2014 4:28 PM Anitha Velásquez LPN No [facility] 07-15-2014 Do you have serious difficulty walking or climbing stairs No 07/15/2014 4:28 PM Anitha Velásquez LPN No [facility] 07-15-2014 Do you have difficul ty dressing or bathing No 07/15/2014 4:28 PM Anitha Velásquez LPN No [facility] 07-15-2014 Because of a physica l, mental, or emotional condition, do you have difficulty doing errands alone such as visiting a physician's office or shopping No 07/15/2014 4:28 PM Anitha Velásquez LPN No [facility] Mental Status Date Assessment Result Facility 11-05-2024 Cognitive function Level Of Cons ciousness Awake;Alert;Appropriate;Fol lows Commands [facility] Work Phone: 10-31-2024 Cognitive function Level Of Cons ciousness Awake;Alert;Appropriate;Fol lows Commands [facility] Work Phone: 07-15-2014 Because of a physica l, mental, or emotional condition, do you have serious difficulty concentrating, remembering, or making decisions No 07/15/2014 4:28 PM Anitha Velásquez LPN No [facility] Clinical Notes 11-24-2021 to 03-22-2025 Telephone Encounter - Jessie Echevarria RN - 03/22/2025 10:02 AM EDTTelephone Encounter - Jessie Echevarria RN - 03/22/2025 10:02 AM EDTTelephone Encounter - Alysha Ascencio - 03/22/2025 9:39 AM EDT Note Date & Type Note Facility 03-22-2025 Telephone encounter Note Called patient to discuss medication and refill questions. Patient states she is currently taking one 50 mg tablet and one 25 mg tablet of metoprolol in the morning (total of 75 mg) and one 100 mg tablet of metoprolol in the evening. She is requesting refills on her 50 mg and 25 mg tablets of metoprolol and is requesting 90 days for both due to worries that the pharmacy won't always have medications in stock when she needs them. Informed her that per her last visit with Dr. Godfrey he recommended she only follow up as needed since cardiac workup was normal and per his last note he is deferring labs and rx to PCP. Patient expressed concern with PCP taking over for her metoprolol. She states her PCP is only a general practitioner and that she knows nothing about cardiology. She states that her PCP always directs her to our office when she has concerns about her metoprolol. Questioned if patient currently has 50 mg and 25 mg tablets and patient verified that she does and that they were ordered by her PCP, but that her PCP states that she doesn't feel comfortable prescribing more than 75 mg bid for the extended release metoprolol. She also states that her [place]CP [place] a [place] doctor and has concerns about their knowledge/ability compared to [facility] so she would prefer our office continue to manage her metoprolol. Informed her that if we were to fill her medications we would need to see her annually for refills. Patient states she would be okay with that. Informed her I will send a request to Kate Hernandez APRN and will call her if Kate has any different or additional recommendations. Patient verbalized understanding and had no further questions at this time. [facility] 03-22-2025 Miscellaneous Notes Called patient to discuss medication and refill questions. Patient states she is currently taking one 50 mg tablet and one 25 mg tablet of metoprolol in the morning (total of 75 mg) and one 100 mg tablet of metoprolol in the evening. She is requesting refills on her 50 mg and 25 mg tablets of metoprolol and is requesting 90 days for both due to worries that the pharmacy won't always have medications in stock when she needs them. Informed her that per her last visit with Dr. Godfrey he recommended she only follow up as needed since cardiac workup was normal and per his last note he is deferring labs and rx to PCP. Patient expressed concern with PCP taking over for her metoprolol. She states her PCP is only a general practitioner and that she knows nothing about cardiology. She states that her PCP always directs her to our office when she has concerns about her metoprolol. Questioned if patient currently has 50 mg and 25 mg tablets and patient verified that she does and that they were ordered by her PCP, but that her PCP states that she doesn't feel comfortable prescribing more than 75 mg bid for the extended release metoprolol. She also states that her [place]CP [place] and has concerns about their knowledge/ability compared to [facility] doctors so she would prefer our office continue to manage her metoprolol. Informed her that if we were to fill her medications we would need to see her annually for refills. Patient states she would be okay with that. Informed her I will send a request to Kate Hernandez APRN and will call her if Kate has any different or additional recommendations. Patient verbalized understanding and had no further questions at this time. Pt is calling in with questions regarding medications and refills. Please call documented in this encounter [facility] 03-22-2025 Telephone encounter Note Pt is calling in with questions regarding medications and refills. Please call [facility] 01-30-2025 Evaluation + Plan note Associated Problem(s): Racing heart beat Etiology unclear. In setting of sleep disruption and uncontrolled Htn. Probable sinus tach based on prior monitors but formally need to confirm. -Continue BP mgt -F/u EM report. [facility] 01-30-2025 Evaluation + Plan note Associated Problem(s): Essential hypertension Stable. She has managed her own meds with slight variations. Sleep study negative. For the most part 2ndary workup for hypertension is negative. Toprol (non period days) 75 mg + 5 mg Norvasc ; 100 mg on period days with Norvasc. -Cont toprol as above -Cont norvasc 5 mg -Cont to f/u with PCP; Will defer Rx and labs to PCP. -If needed in future, consider diuretic as 3rd agent (such as hydrochlorothiazide, aldactone or other thiazide) -If continues to have unexplained variable or rising BP then recommend renal vascular US (eval for atherosclerotic GUERRERO or fibromuscular dysplasia). [facility] 01-30-2025 History of Presen t illness Narrative Images from the original note were not included. [facility] [place] [address] [facility] [address] [facility] [address] Dept: [phone] Dept Visit type: Established : 1975 Reason for Visit: 1 Month Follow Up Assessment and Plan Assessment & Plan Racing heart beat Etiology unclear. In setting of sleep disruption and uncontrolled Htn. Probable sinus tach based on prior monitors but formally need to confirm. -Continue BP mgt -F/u EM report. Essential hypertension Stable. She has managed her own meds with slight variations. Sleep study negative. For the most part 2ndary workup for hypertension is negative. Toprol (non period days) 75 mg + 5 mg Norvasc ; 100 mg on period days with Norvasc. -Cont toprol as above -Cont norvasc 5 mg -Cont to f/u with PCP; Will defer Rx and labs to PCP. -If needed in future, consider diuretic as 3rd agent (such as hydrochlorothiazide, aldactone or other thiazide) -If continues to have unexplained variable or rising BP then recommend renal vascular US (eval for atherosclerotic GUERRERO or fibromuscular dysplasia). Follow up if symptoms worsen or fail to improve. Subjective Copied from prior notes. Referred; self; met Dr. Godfrey 12/2024. Had treatment in [place]. Had trouble getting in to see cardiology so is here in [facility] for this. Had a lot of stressors in the last 16 mos. Has a 9 yr old at home. Has in-laws who are sick and she has her own medical issues which have not been stable. Awaiting bx results of left breast to determine if has breast cancer. Has been having various Sxs for over a year. Had a primary care physician and a bolt threader providing care but no longer doing so since begun with Dr. Solares, her PCP, who most recently modified her BP regimen. A few mos ago, began having CP along with high BP, somewhat variable. Self adjusting her own medications, and has been advised not to do this. One episode, while driving, felt near syncope. Pulled over due to dizziness. But did not syncopize. Pulled over and called her . But then it passed on its own. Long standing MSK pain; tramadol. Mostly for her back. Began seeing a bolt threader who prescribed her ivermectin for inflammation and possible muscle parasites. Then added low dose Naltrexone. I do not know the scientific basis for this prescribing strategy. She thinks she may have felt better but was concerned about the dosing. From a cardiac perspective ivermectin was unlikely to cause significant cardiac risk. In any case, she is not on this now. October 25; 2 hrs after going to bed, weakness up fever, pink all over, diarrhea, nausea, High BP, Pulse 120, her jaw felt tight. Possible drug reaction. Given zofran IV there. Then PCP gave her PO zofran and benadryl. Rec to stop meds and f/u with PCP. Then she found her HR elev 150 bpm. Went back to [place] ED. Took an EKG and test, and troponin. All of which were negative. Then 3rd visit to [place] ED. Feeling something's wrong. Repeated troponin, D-dimer. All tests were negative. Was rec for discharge. PCP added amlodipine. Blood pressure improving but not controlled. Anxiety treated with Klonopin. Dr. Godfrey reviewed stable EKG, calcium score of 0, and echo normal. No prior sign of ischemic heart disease, valve disease, or pericardial disease. No sign of hypertensive heart disease spite recent uncontrolled hypertension. Dr. Godfrey D/w her overall, that she is healthy, needs to start exercising. Snores, so getting a sleep study is a good idea. F/u with PCP for further BP optimization. Will defer to PCP to f/u on TSH and catecholamines. But if her BP continues to rise and not be well controlled, then would favor a renal doppler US to rule out renal artery stenosis as a secondary cause of Htn. Dr. 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 This is not assoc with cardiac disorders but can be associated with autonomic nervious system dysfunction which could lead to labile BP and labile HR. There is no fix for this. We place pts on meds that optimized BP mgt. I encouraged her to talk to PCP to see if she can get a clearer dx of hEDS as this could be important to understand her salvage determiner course. Patient tells me that pheochromocytoma was evaluated and negative. Uncle is a process stripper and functional medicine doc Pt reportedly treated for Serotonin syndrome, October 2024. 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 Hx of excessive bleeding on menses, will soak through a pad in 1 hour; chronic. TODAY: Feeling better. Unfortunately, her EM is not available. Eats healthy, avoid ultra-processed food. Avoid salt, started daily allowance of potassium from O/C sources. Says she attributes this intervention with better improved BP and less cramps at nite, now sleeping better. I reassured her that effective sleep is an important part of her penitentiary health and allows proper exercise. Toprol 75 mg at noon, then 5 mg amlodipine. No spices. Toprol (non period days) 75 mg + 5 mg Norvasc ; 100 mg on period days with Norvasc. Hx severe PMS, lots of fluid retention. Now that she is sleeping better - walk on the treadmill 40 min. 2.6 mi/hr. Has an elliptical. I reviewed some extensive labwork, the vast majority of which is normal. Exceptions; Borderline Free T4 1.5 Aldosterone 33.3, Renin 2.7 However, given her use of current BP meds the tara levels may not be accurate. Nonetheless, from clinical perspective, she is stable, on 2 agents for BP with less variability in her BP and symptoms than previously. We also had a long discussion supporting the role of exercise which she has appropriately taken on in an effort to feel better and mitigate autonomic nervous system variability due to deconditioning. At this point (with the exception of the final read on EM) we do not have a cardiac pathology to diagnose or manage; f/u PRN. We will contact her with monitor results. If concerning we will bring her back. Veronica Umaña Review of Systems Constitutional: Positive for diaphoresis and fatigue. Negative for activity change, chills and fever. HENT: Negative for nosebleeds and trouble swallowing. Eyes: Positive for visual disturbance (increased blurred vision). Negative for discharge. Respiratory: Positive for cough (occasional) and shortness of breath (with elevated BP). Negative for apnea, chest tightness and wheezing. Cardiovascular: Positive for palpitations (mostly at night). Negative for chest pain and leg swelling. Gastrointestinal: Negative for abdominal distention, abdominal pain, blood in stool, diarrhea, nausea and vomiting. Endocrine: Negative for cold intolerance and heat intolerance. Genitourinary: Negative for hematuria. Musculoskeletal: Positive for myalgias. Negative for gait problem. Skin: Negative for color change and rash. Neurological: Positive for headaches. Negative for dizziness, seizures, syncope, facial asymmetry, speech difficulty, weakness, light-headedness and numbness. Hematological: Does not bruise/bleed easily. Psychiatric/Behavioral: Negative for dysphoric mood (some anxiety). Allergies[1] Current Medications[2] Medical History[3] Social History Tobacco Use Smoking status: Never Smokeless tobacco: Never Substance Use Topics Alcohol use: Not Currently Surgical History[4] Family History[5] Objective Vitals: 01/30/25 1512 BP: 110/70 BP Location: Left arm Patient Position: Sitting BP Cuff Size: Adult Pulse: 75 SpO2: 98% Weight: 158 lb (71.7 kg) Height: 5' 7 (1.702 m) Physical Exam Vitals reviewed. Constitutional: General: She is not in acute distress. Appearance: She is well-developed. Neck: Vascular: No JVD. Cardiovascular: Rate and Rhythm: Normal rate and regular rhythm. Heart sounds: Normal heart sounds. No murmur heard. Pulmonary: Effort: Pulmonary effort is normal. Breath sounds: Normal breath sounds. Abdominal: General: Bowel sounds are normal. Palpations: Abdomen is soft. Musculoskeletal: Right lower leg: No edema. Left lower leg: No edema. Neurological: Mental Status: She is alert. Psychiatric: Attention and Perception: Attention normal. Behavior: Behavior is cooperative. Data Reviewed and Summarized No results found for: EFBP, PLVEF, LVEFPHYS, LVEF2D, EF Review of tests/labs done/ordered within my specialty: EKG in office: - Review of tests/labs done/ordered outside my specialty: Independent interpretation of tests: Isra Godfrey MD [1] Allergies Allergen Reactions Aminobenzoate bumps all over my face Azithromycin Hives Other Reaction(s): Other (See Comments) sharp abdominal pain Pt states she has sharp stabbing pain in her stomach when she takes the medication Botulinum Toxin Type A Other Reaction(s): Hives Cyclobenzaprine Other Reaction(s): Other Duloxetine Other Reaction(s): Intolerance Gabapentin Other Reaction(s): Other Ivermectin Other Reaction(s): Nausea/Vom/Diarrhea Naltrexone Other Reaction(s): Other Quinolones Hives All henry drugs Sulfa Antibiotics Hives and pruritis Tramadol Other Reaction(s): Other [2] Current Outpatient Medications: amLODIPine (Norvasc) 5 MG tablet, Take 5 mg by mouth daily., Disp: , Rfl: clonazePAM (KlonoPIN) 0.5 MG tablet, Take 0.5 mg by mouth 2 times daily as needed. (Patient taking differently: Take 0.5 mg by mouth 4 times daily as needed for anxiety.), Disp: , Rfl: MAGNESIUM PO, 250 mg., Disp: , Rfl: metoprolol succinate XL (Toprol-XL) 100 MG 24 hr tablet, Take 1 tablet (100 mg) by mouth 2 times daily. Take an additional 1/2 tablet (50 mg) as-needed for heart rate greater than 110 sustained., Disp: 180 tablet, Rfl: 1 [3] Past Medical History: Diagnosis Date Cystitis, interstitial History of miscarriage 4 miscarriages Hypertension PTSD (post-traumatic stress disorder) Rosacea [4] Past Surgical History: Procedure Laterality Date ABLATION OF DYSRHYTHMIC FOCUS sinus SECTION (HISTORICAL) SHOULDER SURGERY Left [5] Family History Problem Relation Name Age of Onset Hypertension Father Hypertension Brother documented in this encounter [facility] 01-30-2025 Miscellaneous Notes Associated Problem(s): Racing heart beat Etiology unclear. In setting of sleep disruption and uncontrolled Htn. Probable sinus tach based on prior monitors but formally need to confirm. -Continue BP mgt -F/u EM report. Associated Problem(s): Essential hypertension Stable. She has managed her own meds with slight variations. Sleep study negative. For the most part 2ndary workup for hypertension is negative. Toprol (non period days) 75 mg + 5 mg Norvasc ; 100 mg on period days with Norvasc. -Cont toprol as above -Cont norvasc 5 mg -Cont to f/u with PCP; Will defer Rx and labs to PCP. -If needed in future, consider diuretic as 3rd agent (such as hydrochlorothiazide, aldactone or other thiazide) -If continues to have unexplained variable or rising BP then recommend renal vascular US (eval for atherosclerotic GUERRERO or fibromuscular dysplasia). documented in this encounter [facility] 01-24-2025 Telephone encounter Note Patient checked in at the senior front end web developer at 12:08 for 12 PM appointment. Unfortunately, there was insufficient time to room patient per office protocol and complete visit by end of scheduled visit time (12:30) Patient was scheduled for follow up visit. Of note, she was last seen in > 2 years (last visit 2022) It would not be possible to adequately conduct an appropriate visit in the remaining time. She was advised to reschedule. [facility] Work Phone: 01-24-2025 Miscellaneous Notes Patient checked in at the senior front end web developer at 12:08 for 12 PM appointment. Unfortunately, there was insufficient time to room patient per office protocol and complete visit by end of scheduled visit time (12:30) Patient was scheduled for follow up visit. Of note, she was last seen in > 2 years (last visit 2022) It would not be possible to adequately conduct an appropriate visit in the remaining time. She was advised to reschedule. Pt called very agitated regarding her appt today. Appt was scheduled for 12p today. Pt checked in at 12:08 with ESTELA Pardo. Pt waited 3.5 hours, only to be told to reschedule their appt for another day. Pt stated she paid $500 in snyder for this appt. No refunds were issued at the time when Pt was notified to reschedule. Pt was given Ombudsman to call to report the situation. Pt called a [facility] number (unsure where) and was routed to our office. Apologized for the experience today. Offered to reschedule with another provider at a different location. Pt declined. Escalated the situation to Lucy Cook for follow up. EA documented in this encounter [facility] 01-24-2025 Telephone encounter Note Pt called very agitated regarding her appt today. Appt was scheduled for 12p today. Pt checked in at 12:08 with ESTELA Pardo. Pt waited 3.5 hours, only to be told to reschedule their appt for another day. Pt stated she paid $500 in snyder for this appt. No refunds were issued at the time when Pt was notified to reschedule. Pt was given Ombudsman to call to report the situation. Pt called a [facility] number (unsure where) and was routed to our office. Apologized for the experience today. Offered to reschedule with another provider at a different location. Pt declined. Escalated the situation to Lucy Cook for follow up. EA [facility] 01-08-2025 History of Presen t illness Narrative Images from the original note were not included. [facility] [address] [facility] [address] Dept: [phone] Dept Visit type: New : 1975 Reason for Visit: Follow-up Assessment and Plan 1. Palpitations - ECG 12 lead - Cardiac holter monitor (8- 15 days) 2. Racing heart beat - Cardiac holter monitor (8- 15 days) 3. Yesica-Danlos syndrome type III - Cardiac holter monitor (8- 15 days) 4. Near syncope - Cardiac holter monitor (8- 15 days) 5. Essential hypertension - Cardiac holter monitor (8- 15 days) 6. Shortness of breath - Cardiac holter monitor (8- 15 days) There is a lot to address here, and we reviewed this at length in the office. Her appointment lasted well over an hour, and I told her that we can address additional things at additional appointments but that it will take some time. We tried to prioritize the followin. She is taking Toprol-XL 50 mg twice daily; she roughly takes this at 7 or 8 AM and then needs it again by 5 PM. She just started taking an additional 25 mg at night for additional coverage. She clearly needs more beta-amilcar. I will increase today to Toprol XL 100 mg twice daily, but advised that she take half of the 50 mg tablet for breakthrough palpitations. 2. Amlodipine was changed 01/03/2025 from 5 mg daily to 5 mg twice daily. This was done by primary care provider, and she does report some improvement to her evening blood pressures. She is tolerating this and we will continue as currently prescribed. She is very nervous about overtreating the blood pressure, and today I gave her a parameter of 90/50 being an acceptable blood pressure unless she is orthostatic, dizzy, syncopal. 3. quality assurance monitor final. She has episodes where she wakes up with periods of hypertension and racing pulse. She has a lot of anxiety regarding going to sleep and fearing whether or not she will wake up. I would like to capture what is going on during these events. They are happening just about daily, but I will order a 2-week monitor so that we make sure we capture a good portion. 4. Possible sleep apnea. She has a test and lab soon and will schedule up with primary care. This could be a contributing factor to her nighttime symptoms. 5. Other contributing factors to her current problems include: Salt sensitivity. Perimenopause. Elevated aldosterone 33.3, minimally elevated (range 0-30.0). Anxiety. Yesica-Danlos type III. She says she really does not tolerate salt, so I have asked her to avoid it. Would be reasonable to go back to her primary care provider for additional testing of the above problems, and referral to specialties as appropriate. 6. She did ask about information for autonomic dysfunction, see prior telephone encounter. I did find information on the management of autonomic dysfunction on up-to-date and printed out for her. Follow up for Dr. Godfrey after testing complete . Subjective Referred; self; met Dr. Godfrey 12/2024. Had treatment in [place]. Had trouble getting in to see cardiology so is here in [facility] for this. Had a lot of stressors in the last 16 mos. Has a 9 yr old at home. Has in-laws who are sick and she has her own medical issues which have not been stable. Awaiting bx results of left breast to determine if has breast cancer. Has been having various Sxs for over a year. Had a primary care physician and a bolt threader providing care but no longer doing so since begun with Dr. Solares, her PCP, who most recently modified her BP regimen. A few mos ago, began having CP along with high BP, somewhat variable. Self adjusting her own medications, and has been advised not to do this. One episode, while driving, felt near syncope. Pulled over due to dizziness. But did not syncopize. Pulled over and called her . But then it passed on its own. Long standing MSK pain; tramadol. Mostly for her back. Began seeing a bolt threader who prescribed her ivermectin for inflammation and possible muscle parasites. Then added low dose Naltrexone. I do not know the scientific basis for this prescribing strategy. She thinks she may have felt better but was concerned about the dosing. From a cardiac perspective ivermectin was unlikely to cause significant cardiac risk. In any case, she is not on this now. October 25; 2 hrs after going to bed, weakness up fever, pink all over, diarrhea, nausea, High BP, Pulse 120, her jaw felt tight. Possible drug reaction. Given zofran IV there. Then PCP gave her PO zofran and benadryl. Rec to stop meds and f/u with PCP. Then she found her HR elev 150 bpm. Went back to [place] ED. Took an EKG and test, and troponin. All of which were negative. Then 3rd visit to [place] ED. Feeling something's wrong. Repeated troponin, D-dimer. All tests were negative. Was rec for discharge. PCP added amlodipine. Blood pressure improving but not controlled. Anxiety treated with Klonopin. Dr. Godfrey reviewed stable EKG, calcium score of 0, and echo normal. No prior sign of ischemic heart disease, valve disease, or pericardial disease. No sign of hypertensive heart disease spite recent uncontrolled hypertension. Dr. Godfrey D/w her overall, that she is healthy, needs to start exercising. Snores, so getting a sleep study is a good idea. F/u with PCP for further BP optimization. Will defer to PCP to f/u on TSH and catecholamines. But if her BP continues to rise and not be well controlled, then would favor a renal doppler US to rule out renal artery stenosis as a secondary cause of Htn. Dr. 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 This is not assoc with cardiac disorders but can be associated with autonomic nervious system dysfunction which could lead to labile BP and labile HR. There is no fix for this. We place pts on meds that optimized BP mgt. I encouraged her to talk to PCP to see if she can get a clearer dx of hEDS as this could be important to understand her salvage determiner course. Patient tells me that pheochromocytoma was evaluated and negative. 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 BP high and HR high, waking up at night. Got her period last Tuesday, Has PMS, and 2 days prior to her period she had a club sandwich that had 3,500 mg salt; was normotensive, but then woke up at night with BP 166/109, pulse 101. Hx of excessive bleeding on menses, will soak through a pad in 1 hour; chronic. Since this episode has started taking Amlodipine BID to cover nighttime symptoms; this started 01/03. Uncle is a process stripper and functional medicine doc Pt reportedly treated for Serotonin syndrome, October 2024. Veronica Umaña Review of Systems Constitutional: Positive for fatigue. Negative for activity change, chills, diaphoresis and fever. HENT: Negative for nosebleeds and trouble swallowing. Eyes: Negative for discharge and visual disturbance. Respiratory: Positive for apnea (suspect), chest tightness and shortness of breath. Negative for cough and wheezing. Cardiovascular: Positive for chest pain and palpitations. Negative for leg swelling. Gastrointestinal: Negative for abdominal distention, abdominal pain, blood in stool, diarrhea, nausea and vomiting. Endocrine: Negative for cold intolerance and heat intolerance. Genitourinary: Negative for hematuria. Musculoskeletal: Negative for gait problem and myalgias. Skin: Negative for color change and rash. Neurological: Positive for dizziness, syncope, light-headedness and headaches. Negative for seizures, facial asymmetry, speech difficulty, weakness and numbness. When BP is high reports jittery, anxious, can't sleep, SOB, wakes her up at night Hematological: Does not bruise/bleed easily. Psychiatric/Behavioral: Positive for behavioral problems (stress), decreased concentration and sleep disturbance. Negative for dysphoric mood. The patient is nervous/anxious and is hyperactive. Allergies[1] Current Medications[2] Medical History[3] Social History Tobacco Use Smoking status: Never Smokeless tobacco: Never Substance Use Topics Alcohol use: Not Currently Surgical History[4] Family History[5] Objective Vitals: 01/08/25 1005 BP: 114/78 BP Location: Left arm Patient Position: Sitting BP Cuff Size: Adult Pulse: 78 Weight: 160 lb (72.6 kg) Height: 5' 7 (1.702 m) Physical Exam Constitutional: General: She is not in acute distress. Appearance: Normal appearance. She is not diaphoretic. HENT: Head: Normocephalic. Nose: Nose normal. Mouth/Throat: Mouth: Mucous membranes are moist. Pharynx: No oropharyngeal exudate. Eyes: General: No scleral icterus. Right eye: No discharge. Left eye: No discharge. Neck: Thyroid: No thyromegaly. Vascular: No carotid bruit or JVD. Cardiovascular: Rate and Rhythm: Normal rate and regular rhythm. Pulses: Normal pulses. Heart sounds: Normal heart sounds. No murmur heard. Pulmonary: Effort: Pulmonary effort is normal. Breath sounds: Normal breath sounds. Abdominal: General: Abdomen is flat. Bowel sounds are normal. There is no distension. Palpations: Abdomen is soft. There is no hepatomegaly. Tenderness: There is no abdominal tenderness. Musculoskeletal: General: Normal range of motion. Cervical back: Normal range of motion. Right lower leg: No edema. Left lower leg: No edema. Skin: General: Skin is warm and dry. Capillary Refill: Capillary refill takes less than 2 seconds. Neurological: Mental Status: She is alert and oriented to person, place, and time. Psychiatric: Mood and Affect: Mood is anxious. Affect is labile. Speech: Speech is rapid and pressured and tangential. Behavior: Behavior is hyperactive. Data Reviewed and Summarized No results found for: EFBP, PLVEF, LVEFPHYS, LVEF2D, EF Review of tests/labs done/ordered within my specialty: EKG in office: 01/08/25 ECG 12-LEAD 01/08/2025 10:41 AM (Final) Narrative Sinus Rhythm WITHIN NORMAL LIMITS Signed by: Julienne Skinner MD on 01/08/2025 10:41 AM Review of tests/labs done/ordered outside my specialty: Independent interpretation of tests: Kate Hernandez APRN - MARSHA [1] Allergies Allergen Reactions Aminobenzoate bumps all over my face Azithromycin Hives Other Reaction(s): Other (See Comments) sharp abdominal pain Pt states she has sharp stabbing pain in her stomach when she takes the medication Botulinum Toxin Type A Other Reaction(s): Hives Cyclobenzaprine Other Reaction(s): Other Duloxetine Other Reaction(s): Intolerance Gabapentin Other Reaction(s): Other Ivermectin Other Reaction(s): Nausea/Vom/Diarrhea Naltrexone Other Reaction(s): Other Quinolones Hives All henry drugs Sulfa Antibiotics Hives and pruritis Tramadol Other Reaction(s): Other [2] Current Outpatient Medications: amLODIPine (Norvasc) 5 MG tablet, Take 5 mg by mouth daily. (Patient taking differently: Take 5 mg by mouth 2 times daily.), Disp: , Rfl: clonazePAM (KlonoPIN) 0.5 MG tablet, Take 0.5 mg by mouth 2 times daily as needed., Disp: , Rfl: MAGNESIUM PO, 250 mg., Disp: , Rfl: metoprolol succinate XL (Toprol-XL) 50 MG 24 hr tablet, Take 100 mg by mouth 2 times daily. Take an additional 1/2 tablet (25 mg) as-needed for heart rate greater than 110 sustained. Do not crush or chew., Disp: , Rfl: [3] Past Medical History: Diagnosis Date Cystitis, interstitial History of miscarriage 4 miscarriages Hypertension PTSD (post-traumatic stress disorder) Rosacea [4] Past Surgical History: Procedure Laterality Date ABLATION OF DYSRHYTHMIC FOCUS sinus SECTION (HISTORICAL) SHOULDER SURGERY Left [5] Family History Problem Relation Name Age of Onset Hypertension Father Hypertension Brother documented in this encounter [facility] 01-07-2025 Telephone encounter Note Scheduled tomorrow at 10 am [facility] 01-07-2025 Miscellaneous Notes Scheduled tomorrow at 10 am I called and told Veronica that Kate has openings this week. Veronica is agreeable if she can get a ride. She will talk to the ward secretary to get an appointment. I spoke with Veronica when she called in to the office. She has been waking every night with a gasp from a dream and her heart rate is fast and her BP is elevated in the 160. This occurred last night after just 45 minutes of sleep. Before sleep her BP was 126/80 on right and 128/80 on the Left. She slept 45 minutes awoke from a dream and gasped and her BP was 160/80 heart rate was in the 110-120's she drank 70 ounces of water and her heart rate came down to 70-80 and BP came down to the 130's. She is wondering if the heart monitor can be ordered before her appointment with Anitha on 01/29/25. She would like to talk to some one that can explain the autonomic disorder that Dr. Godfrey mentioned in his office note from the 12/10/24 visit. documented in this encounter [facility] 01-07-2025 Telephone encounter Note I called and told Veronica that Kate has openings this week. Veronica is agreeable if she can get a ride. She will talk to the ward secretary to get an appointment. [facility] 01-07-2025 Telephone encounter Note I spoke with Veronica when she called in to the office. She has been waking every night with a gasp from a dream and her heart rate is fast and her BP is elevated in the 160. This occurred last night after just 45 minutes of sleep. Before sleep her BP was 126/80 on right and 128/80 on the Left. She slept 45 minutes awoke from a dream and gasped and her BP was 160/80 heart rate was in the 110-120's she drank 70 ounces of water and her heart rate came down to 70-80 and BP came down to the 130's. She is wondering if the heart monitor can be ordered before her appointment with Anitha on 01/29/25. She would like to talk to some one that can explain the autonomic disorder that Dr. Godfrey mentioned in his office note from the 12/10/24 visit. [facility] 12-10-2024 Evaluation + Plan note Associated Problem(s): Racing heart beat Etiology unclear. In setting of sleep disruption and uncontrolled Htn. -Stabilize BP mgt -F/u in cardiology office; if still having unexplained tachycardia then would ck EM. [facility] 12-10-2024 Miscellaneous Notes Associated Problem(s): Racing heart beat Etiology unclear. In setting of sleep disruption and uncontrolled Htn. -Stabilize BP mgt -F/u in cardiology office; if still having unexplained tachycardia then would ck EM. Associated Problem(s): Yesica-Danlos syndrome type III Dx'd about 10 yrs ago. She has never had a genetic test for this or other forms of EDS. -Rec she d/w PCP to be referred to a specialist to address this. Would be helpful to her and her other physicians to know what the dx is. -Some pts with hEDS (Type III) can have autonomic dysfunction; but uncommonly is associated with cardiac issues. The pattern is not like other forms that have vascular structural disorders which is common for other types of EDS such as vEDS or kEDS. Associated Problem(s): Near syncope One time episode. Occurred in a car. In setting of variable BP and self dosing of Toprol. No recurrence. Extensive cardiac w/u reviewed and is benign thus far. -No additional cardiac testing at this time. -Stop self dosing meds -Stably manage BP meds with PCP -hEDS may be associated with autonomic dysfunction and theoretically could predispose her to this; expectant mgt. Associated Problem(s): Essential hypertension Target BP 140/90, can also target 130/80 mmHg. -Cont toprol 50 bid -Cont norvasc 5 mg -Cont to f/u with PCP; titrate as needed. Consider diuretic as 3rd agent (such as hydrochlorothiazide, aldactone or other thiazide) -Rec sleep study -F/u on pheo w/u -If continues to have unexplained variable or rising BP then recommend renal vascular US (eval for atherosclerotic GUERRERO or fibromuscular dysplasia). documented in this encounter [facility] 12-10-2024 Evaluation + Plan note Associated Problem(s): Yesica-Danlos syndrome type III Dx'd about 10 yrs ago. She has never had a genetic test for this or other forms of EDS. -Rec she d/w PCP to be referred to a specialist to address this. Would be helpful to her and her other physicians to know what the dx is. -Some pts with hEDS (Type III) can have autonomic dysfunction; but uncommonly is associated with cardiac issues. The pattern is not like other forms that have vascular structural disorders which is common for other types of EDS such as vEDS or kEDS. [facility] 12-10-2024 Evaluation + Plan note Associated Problem(s): Near syncope One time episode. Occurred in a car. In setting of variable BP and self dosing of Toprol. No recurrence. Extensive cardiac w/u reviewed and is benign thus far. -No additional cardiac testing at this time. -Stop self dosing meds -Stably manage BP meds with PCP -hEDS may be associated with autonomic dysfunction and theoretically could predispose her to this; expectant mgt. [facility] 12-10-2024 Evaluation + Plan note Associated Problem(s): Essential hypertension Target BP 140/90, can also target 130/80 mmHg. -Cont toprol 50 bid -Cont norvasc 5 mg -Cont to f/u with PCP; titrate as needed. Consider diuretic as 3rd agent (such as hydrochlorothiazide, aldactone or other thiazide) -Rec sleep study -F/u on pheo w/u -If continues to have unexplained variable or rising BP then recommend renal vascular US (eval for atherosclerotic GUERRERO or fibromuscular dysplasia). [facility] 12-10-2024 Radiology Diagnostic study note [facility] Imaging Services [address] [place] [address] US Breast Biopsy 1st Lesion MR#: [id number] Acct: [id number] Name: VERONICA UMAÑA Rep #: [id number] : 1975 F 49 From: Toñito Gonsalez MD PCP: Dr. Kala Solares MD Status: REG CLI Study:US Breast Biopsy 1st Lesion Date of Exa m: 12/05/24 Exam# [id number] Ordering Dr: Veronica Gupta PA-C PROCEDURE: US BREAST BIOPSY 1ST LESION 12/05/2024 REASON FOR EXAM: F, Age 49 y/o , LEFT BREAST MASS X 2 COMPARISON: Prior exam(s) dating back to . TECHNIQUE: Under direct sonographic guidance, the surgeon performed core biopsies of the lesions seen at the 1 o'clock and 3 o'clock position in the left breast. FINDINGS: ULTRASOUND: Ultrasound was targeted to the left breast . Successful core biopsies. US/US Breast Biopsy 1st Lesion IMPRESSION: Successful core biopsies. BI-RADS 0: INCOMPLETE - NEED ADDITIONAL IMAGING EVALUATION. Reading Location: [place] [address] CC: JANNETH Gupta; Dr. Kala Solares MD ~ Sports Management Intern: Signed [facility] 12-10-2024 History of Presen t illness Narrative Images from the original note were not included. [facility] - [address] [facility] [address] Dept: [phone] Dept Visit type: New : 1975 Reason for Visit: New Patient Assessment and Plan 1. Near syncope Assessment & Plan: One time episode. Occurred in a car. In setting of variable BP and self dosing of Toprol. No recurrence. Extensive cardiac w/u reviewed and is benign thus far. -No additional cardiac testing at this time. -Stop self dosing meds -Stably manage BP meds with PCP -hEDS may be associated with autonomic dysfunction and theoretically could predispose her to this; expectant mgt. 2. Essential hypertension Assessment & Plan: Target BP 140/90, can also target 130/80 mmHg. -Cont toprol 50 bid -Cont norvasc 5 mg -Cont to f/u with PCP; titrate as needed. Consider diuretic as 3rd agent (such as hydrochlorothiazide, aldactone or other thiazide) -Rec sleep study -F/u on pheo w/u -If continues to have unexplained variable or rising BP then recommend renal vascular US (eval for atherosclerotic GUERRERO or fibromuscular dysplasia). Orders: - ECG 12 lead 3. Racing heart beat Assessment & Plan: Etiology unclear. In setting of sleep disruption and uncontrolled Htn. -Stabilize BP mgt -F/u in cardiology office; if still having unexplained tachycardia then would ck EM. 4. Yesica-Danlos syndrome type III Assessment & Plan: Dx'd about 10 yrs ago. She has never had a genetic test for this or other forms of EDS. -Rec she d/w PCP to be referred to a specialist to address this. Would be helpful to her and her other physicians to know what the dx is. -Some pts with hEDS (Type III) can have autonomic dysfunction; but uncommonly is associated with cardiac issues. The pattern is not like other forms that have vascular structural disorders which is common for other types of EDS such as vEDS or kEDS. Follow up in about 4 weeks (around 01/07/2025) for KATH. Subjective Referred; self. Had treatment in [place]. Had trouble getting in to see cardiology so is here in [facility] for this. Had a lot of stressors in the last 16 mos. Has a 9 yr old at home. Has in-laws who are sick and she has her own medical issues which have not been stable. Awaiting bx results of left breast to determine if has breast cancer. Has been having various Sxs for over a year. Had a primary care physician and a bolt threader providing care but no longer doing so since begun with Dr. Solares, her PCP, who most recently modified her BP regimen. A few mos ago, began having CP along with high BP, somewhat variable. Began taking more Toprol on her own. Taking extra toprol on her own PRN for high BP. SBP up to 180 mmHg. We discussed this is not a good idea. 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 She will not be doing this in the future. She will be contacting a medical provider before making any changes. One episode, while driving, felt near syncope. Pulled over due to dizziness. But did not syncopize. Pulled over and called her . But then it passed on its own. Long standing MSK pain; tramadol. Mostly for her back. Began seeing a bolt threader who prescribed her ivermectin for inflammation and possible muscle parasites. Then added low dose Naltrexone. I do not know the scientific basis for this prescribing strategy. She thinks she may have felt better but was concerned about the dosing. From a cardiac perspective ivermectin was unlikely to cause significant cardiac risk. In any case, she is not on this now. October 25; 2 hrs after going to bed, weakness up fever, pink all over, diarrhea, nausea, High BP, Pulse 120, her jaw felt tight. Possible drug reaction. Given zofran IV there. Then PCP gave her PO zofran and benadryl. Rec to stop meds and f/u with PCP. Then she found her HR elev 150 bpm. Went back to [place] ED. Took an EKG and test, and troponin. All of which were negative. Then 3rd visit to [place] ED. Feeling something's wrong. Repeated troponin, D-dimer. All tests were negative. Was rec for discharge. Then after this she was added Norvasc by her PCP and has been on this for about 8 days. I note her BP is better though not yet optimal. Long discussion about her current clinical stability. And that working closely with her PCP to manage her BP is important. By hx, sounds like essential Htn. There was a discussion about pheochromocytoma, so apparently there was labs for that which are pending. She is currently getting her anxiety treated with Klonopin; will defer that to PCP or other specialist. I feel her EKG is ok. Reviewed other cardiac testing which is quite benign and puts her at low cardiac risk. Her calcium score is zero. There were no other chest abnl noted. Her echocardiogram was normal. No sign of prior ischemic heart disease, valve disease, or pericardial dz. No sign of hypertensive heart disease (which is good given recent uncontrolled HTN). D/w her overall, that she is healthy, needs to start exercising. Snores, so getting a sleep study is a good idea. F/u with PCP for further BP optimization. If after her med optimization she is still having issues with faster HR then it would be reasonable to order a 14 day Event monitor. This would help confirm if her faster HR which she says can occur at nite are an arrhythmia or just sinus tachycardia due to anxiety or another process. Will defer to PCP to f/u on TSH and catecholamines. Her coronary calcium score is zero, so unlikely she substantial atherosclerosis. But if her BP continues to rise and not be well controlled, then would favor a renal doppler US to rule out renal artery stenosis as a secondary cause of Htn. 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 This is not assoc with cardiac disorders but can be associated with autonomic nervious system dysfunction which could lead to labile BP and labile HR. There is no fix for this. We place pts on meds that optimized BP mgt. I encouraged her to talk to PCP to see if she can get a clearer dx of hEDS as this could be important to understand her penitentiary course. Veronica Umaña Review of Systems Constitutional: Negative for activity change, chills, diaphoresis, fatigue and fever. HENT: Negative for nosebleeds and trouble swallowing. Eyes: Negative for discharge and visual disturbance. Respiratory: Negative for apnea, cough, chest tightness, shortness of breath and wheezing. Cardiovascular: Positive for chest pain (intermittently) and palpitations (extra metoprolol helps). Negative for leg swelling. Gastrointestinal: Negative for abdominal distention, abdominal pain, blood in stool, diarrhea, nausea and vomiting. Endocrine: Negative for cold intolerance and heat intolerance. Genitourinary: Negative for hematuria. Musculoskeletal: Negative for gait problem and myalgias. Skin: Negative for color change and rash. Neurological: Positive for dizziness, syncope, light-headedness and headaches. Negative for seizures, facial asymmetry, speech difficulty, weakness and numbness. Hematological: Does not bruise/bleed easily. Psychiatric/Behavioral: Negative for dysphoric mood. Allergies[1] Current Medications[2] Medical History[3] Social History Tobacco Use Smoking status: Never Smokeless tobacco: Never Substance Use Topics Alcohol use: Not on file Surgical History[4] Family History[5] Objective Vitals: 12/10/24 0937 12/10/24 0946 BP: (!) 138/90 (!) 136/90 BP Location: Left arm Right arm Patient Position: Sitting Sitting BP Cuff Size: Large adult Large adult Pulse: 76 Weight: 164 lb 4.8 oz (74.5 kg) Height: 5' 7 (1.702 m) Physical Exam Vitals reviewed. Constitutional: General: She is not in acute distress. Appearance: She is well-developed. She is not ill-appearing. HENT: Mouth/Throat: Mouth: Mucous membranes are moist. Neck: Vascular: No carotid bruit, hepatojugular reflux or JVD. Cardiovascular: Rate and Rhythm: Normal rate and regular rhythm. Pulses: Normal pulses. Heart sounds: Normal heart sounds. No murmur heard. Pulmonary: Effort: Pulmonary effort is normal. Breath sounds: Normal breath sounds. Abdominal: General: Bowel sounds are normal. Palpations: Abdomen is soft. Musculoskeletal: Right lower leg: No edema. Left lower leg: No edema. Neurological: Mental Status: She is alert. Gait: Gait normal. Psychiatric: Attention and Perception: Attention normal. Mood and Affect: Mood normal. Behavior: Behavior is cooperative. Cognition and Memory: Cognition and memory normal. Data Reviewed and Summarized No results found for: EFBP, PLVEF, LVEFPHYS, LVEF2D, EF Review of tests/labs done/ordered within my specialty: EKG in office: 12/10/24 ECG 12-LEAD 12/10/2024 9:45 AM (Final) Narrative Sinus Rhythm WITHIN NORMAL LIMITS Signed by: Isra Godfrey MD on 12/10/2024 9:45 AM Review of tests/labs done/ordered outside my specialty: Independent interpretation of tests: Isra Godfrey MD [1] Allergies Allergen Reactions Aminobenzoate bumps all over my face Azithromycin Hives Other Reaction(s): Other (See Comments) sharp abdominal pain Pt states she has sharp stabbing pain in her stomach when she takes the medication Duloxetine Other Reaction(s): Intolerance Quinolones Hives All henry drugs Sulfa Antibiotics Hives and pruritis [2] Current Outpatient Medications: amLODIPine (Norvasc) 5 MG tablet, Take 5 mg by mouth daily., Disp: , Rfl: clonazePAM (KlonoPIN) 0.5 MG tablet, Take 0.5 mg by mouth 2 times daily as needed. (Patient taking differently: Take 0.5 mg by mouth 3 times daily.), Disp: , Rfl: metoprolol succinate XL (Toprol-XL) 50 MG 24 hr tablet, Take 50 mg by mouth 2 times daily. Do not crush or chew., Disp: , Rfl: [3] Past Medical History: Diagnosis Date Cystitis, interstitial History of miscarriage 4 miscarriages Hypertension PTSD (post-traumatic stress disorder) Rosacea [4] Past Surgical History: Procedure Laterality Date ABLATION OF DYSRHYTHMIC FOCUS sinus SECTION (HISTORICAL) SHOULDER SURGERY Left [5] Family History Problem Relation Name Age of Onset Hypertension Father Hypertension Brother documented in this encounter [facility] 12-06-2024 Procedure note [facility] 12-04-2024 Radiology Diagnostic study note [facility] Imaging Services [address] [place], [place] [address] CTA Abdomen W/WO Contrast MR#: [id number] Acct: [id number] Name: VERONICA UMAÑA Rep #: [id number] : 1975 F 49 From: Mamadou Cote MD PCP: Dr. Kala Solares MD Status: REG CLI Study:CTA Abdomen W/WO Contrast Date of Exam: 12/04/24 Exam# [id number] Ordering Dr: Ahsan Solares MD ADDENDUM by Dr. Tommie Cote MD on 12/04/24 at 1622 Further evaluation of the study was performed. There is evidence of subtle low-density thrombus that is persistent within the right renal vein and IVC on images 33 through 49 as well as low-density thrombus within the right portal vein. However, no delayed images were performed to determine if this low-density thrombus persists. Impression there is evidence to suspect low-density thrombus within the right renal vein, and right portal vein. Reading Location: [id number] 12/04/24 1623 Date cc: Dr. Kala Solares MD ~* Signed PROCEDURE: CTA ABDOMEN W/WO CONTRAST 12/04/2024 REASON FOR EXAM: RESISTANT HYPERTENSION TECHNIQUE: CTA ABDOMEN W/WO CONTRAST Multiplanar Sagittal and Coronal images were obtained. 3D and or MIPS post processing was performed CONTRAST: Isovue 370 VOLUME: 100 mL One or more dose reduction techniques were used (e.g., Automated exposure control, adjustment of the mA and/or kV according to patient size, use of iterative reconstruction technique). RADIATION DOSE SUMMARY: CTDlvol: 41.42 mGy DLP: 679.34 mGycm COMPARISON: None FINDINGS: Aorta: Tapers normally without aneurysm or dissection. No atherosclerotic disease. Iliac Arteries: Normal course and caliber. Celiac: Widely patent, no significant atherosclerotic disease or stenosis SMA: Widely patent, no significant atherosclerotic disease or stenosis ROBERT : Not visualized Right Renal: Widely patent, no significant atherosclerotic disease or stenosis Left Renal: Widely patent, no significant atherosclerotic disease or stenosis Lung bases are clear, bilateral breast implants free of complication. Liver shows fatty infiltration without a discrete lesion. Gallbladder, spleen, pancreas, adrenals and kidneys are normal in appearance. No free intraperitoneal fluid, air, or suspicious adenopathy. Bowel loops are unremarkable, no evidence of ileus obstruction or inflammation. Uterus is present and enlarged suggesting underlying fibroids. No suspicious adnexal mass or free fluid. The bladder is normal. No fracture or suspicious osseous lesion CT/CTA Abdomen W/WO Contrast IMPRESSION: No CTA evidence to suspect renal artery stenosis as cause of hypertension Normal vascular structures noted on this study, normal tapering of the aorta without aneurysm or dissection there is no significant atherosclerotic disease or evidence of occlusion or stenosis Fatty liver, no discrete lesion Enlarged likely fibroid uterus Reading Location: [facility] CC: Dr. Kala Solares MD ~ Sports Management Intern: Signed [facility] 11-30-2024 Evaluation note Diagnosis Onset Date Resolution Left breast mass acute November 8:46am [facility] Work Phone: 1(350) 897-288506-24-2025 Radiology Diagnostic study note [facility] Imaging Services [address] [place] [address] Cardiac Only MR#: [id number] Acct: [id number] Name: VERONICA UMAÑA Rep #: [id number] : 1975 F 49 From: Toñito Gonsalez MD PCP: Dr. Kala Solares MD Status: REG CLI Study:Limited Chest CT Cardiac Only Date of E xam: 11/27/24 Exam# [id number] Ordering Dr: Ahsan Solares MD PROCEDURE: LIMITED [...] significant coronary artery calcification seen. Reading Location: [id number] CC: Dr. Kala Solares MD ~ Sports Management Intern: Signed [facility]06-23-2025 Radiology Diagnostic study note [facility] Imaging Services [address] [place], [place] [id number] Breast Limited Unilateral MR#: [id number] Acct: [id number] Name: VERONICA UMAÑA Rep #: [id number] : 1975 F 49 From: Jose Angel Villalobos DO PCP: Dr. Kala Solares MD Status: REG CLI Study:Breast Limited Unilateral Date of Exam: 11/26/24 Exam# [id number] Ordering Dr: Ahsan Solares MD PROCEDURE: BREAST [...] has irregular margins. This mass is located at1 o'clock, 6 cm from the nipple position [...] posterior shadowing. It appears to represent a fibrocysticmass or fibroadenoma. Short-term six-month follow-up ultrasound is recommended to document stability. There are 2 benign-appearing intramammary lymph nodes seen at 3 o'clock, 11 cm from nipple positionmeasuring 7 x 5 x 3 mm and [...] SUSPICIOUS ABNORMALITY. RECOMMENDATION: Biopsy Recommended Reading Location: [id number] CC: Dr. Kala Solares MD ~ Sports Management Intern: Signed [facility]06-02-2025 Radiology Diagnostic study note [facility] Imaging Services [address] [place] [address] Chest PA and Lateral MR#: [id number] Acct: [id number] Name: VERONICA UMAÑA Rep #: [id number] : 1975 F 49 From: Victoria Becker MD PCP: Care Physician,No Primary Status: REG ER Study:Chest PA and Lateral Date of Exam: 11/05/24 Exam# [id number] Ordering Dr: Victor Hugo Mota DO PROCEDURE: CHEST PA AND LATERAL 11/05/2024 REASON FOR EXAM: CHEST PAIN TECHNIQUE: Frontal and lateral views of the chest. COMPARISON: None FINDINGS: Hardware: None Heart: The heart size is normal. Mediastinum: The mediastinal contour is unremarkable. Lungs: The lungs are clear. Bones: The bones are unremarkable. RAD/Chest PA and Lateral IMPRESSION: No acute cardiopulmonary abnormality. Reading Location: [id number] CC: Dr. Victor Hugo Suh DO; No Primary Care Physician ~ Sports Management Intern: Signed [facility]06-02-2025 Hospital Discharge instructions Additional Instructions Follow-up with your new [...] or during the afternoon if needed for anxiety.[facility] Work Phone: 1(107) 876-633605-28-2025 Discharge summary [facility] Medical Records Department [address] [place] [address] Emergency Department Summary 10/31/24 MR#: [id number] Acct: [id number] Name: VERONICA UMAÑA Rep #:[id number] : 1975 49 From: Jose Alexis MD PCP: Elinor Aguilar COMPUTATIONAL SCIENTIST-C Status:RE G ER Location: ED HPI History of Present Illness Chief Complaint: General Illness Narrative Narrative: 49-year-old female presents with concern for allergic reaction versus polypharmacy. She stated thatkezia thinks that she is having a serotonin syndrome. She is also on multiple medications. She takes cyclobenzaprine, clonazepam, gabapentin, and metoprolol for hypertension. She states that she was started on naltrexone as well as ivermectin. Of note she was seen in the emergency department last week on , approximately 6 days ago where she was concerned that she was having an allergic typereaction. She states she wakes up with dry mouth and feeling tense. Additionally, she feels her heart racing. Her blood pressure is elevated at times. She states that she woke up with a pink rash allover. She is concerned that with her polypharmacy, she stopped taking her medications, and that shemight need observation to make surekezia does not have a seizure. 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 I reviewed her prior records. She had basic laboratory work. Shestates that shewants to be checked to make [...] this is all related to anxiety. I att empted to explain to her that she is not meeting observation criteria, but she was almost insistentthat I discuss her case with the hospitalist. [...] 74.6 H Lymph % (Auto) 16.8 L [place] % (Auto) 7.4 Eos % (Auto) 0.1 [...] (Reason: pain) Primary Care Provider: Elinor Aguilar COMPUTATIONAL SCIENTIST Referrals: Elinor Aguilar COMPUTATIONAL SCIENTIST, COMPUTATIONAL SCIENTIST-C [Primary Care Provider] - As soon as possible Activity Restrictions/Additional Instructions: Follow-up with your primary care provider. Make sure you are taking your antihypertensives especially your metoprolol. Print Language: Welsh Disposition Disposition: Home, Self Care What to do if you have Problems For any increased pain, shortness of breath, bleeding, nausea or vomiting, chestpain, or any unexpected problems, contact your Primary Care Provider. Call [facility] ([phone]) or report tothe closest Emergency Room. Call 911 if necessary. 10/31/24 1200 Cosigner Signature (if applicable): CC: COMPUTATIONAL SCIENTIST-C Elinor Aguilar ~ Signed [facility]06-12-2024 History of Present illness Narrative* Lc Krishnan MD - 11/16/2023 9:40 AM EDT Patient presents with: Eye Problem: Right eye swelling and right big toe pain-from pedicure yesterday HPI: Skin Lesion: Location: right great toe medial border Duration: had a hang nail removed at the enamel machine operator yesterday Pruritis/Pain: tender Drainage/blister/pustule/ulceration: redness, swelling, drainage [...] free of live lice or nits. Lc Krishnan MD documented [facility] Discharge summary Author Jessie Li [facility] February 03, 2023 9:43am Note Date/Time February 03, 2023 9: 43am [facility] Physical Therapy [facility] [address] [place] [address]. [address] [place] [address] / REHABILITATION SERVICES DISCHARGE SUMMARY MR#: [id number] Acct: [id number] Name: VERONICA UMAÑA Rep #: [id number] : 1975 47 From: Jessie Conrad Referring Dr.: Dr. Meg Sadler MD Status: REG R Insurance: [employer] [facility] [employer] Patient Information Patient Information: VERONICA [...] Sadler MD; BRANDY SANTOS ~ ELR Signed [facility] Work Phone: 1(986) 425-452107-05-2023 Discharge summary Author Margaret Oliva [facility] December 08, 2022 11:10am Note Date/Time December 08, 2022 11:11 am [facility] [address] [place] [address] / REHABILITATION SERVICES DISCHARGE SUMMARY MR#: [id number] Acct: [id number] Name: VERONICA UMAÑA Rep #: [id number] : 1975 47 From: Margaret Oliva MP T Referring Dr.: Dr. Meg Sadler MD Status: REG RCR Insurance: [employer] [facility] [employer] Patient Information Patient Information: VERONICA [...] JANNETH Yee; Dr. Meg Sadler MD; BRANDY DANIELLE ~ Signed [facility] Work Phone: 1(383) 736-937103-09-2023 Instructions* Patient Instructions* Salvador Arshad MD - 08/12/2022 2:51 PM EST Raul Hanson, healing back pain Use this link to send us a copy of your images from your home computer: [email or web address] To schedule an appointment with me, please call my ward secretary Lynn at [phone]. documented in [facility] encounter[facility]03-[facility]23 History of Present illness Narrative* Salvador Arshad MD - 08/12/2022 2:01 PM EST HPI: This is Ms. Veronica Umaña a 47 year old female from who [facility] with a chief complaint of Referring provider: Priscila Umaña, [address] [place] [address] There is a history of Yesica danlos [...] tablet daily 0 GI-Revive 225 gram Powder ([employer]) Take 1 tablespoons twice daily (1 tablespoon [...] 0.110-3.980 mcIU/mL Third Trimester: 0.480-4.710 mcIU/mL William Elias, et al. A Practical Approach for the Verifications and Determination of Site- and Trimester-Specific Reference Intervals for Thyroid Function tests in . Thyroid, 2019:29:3:412-420. Jim Rogers, et al. 2017 Guidelines of the [place] Thyroid Association for the Diagnosis and Management of Thyroid Disease during and the . Thyroid, 2017:27:3:315-389. Free T4 Date Value Ref Range Status 08/05/2020 1.3 0.9 - 1.7 ng/dL Final Hemoglobin A1C Date Value Ref Range Status 08/05/2020 5.5 4.3 - 5.6 % Final Comment: [place] Diabetes Association guidelines indicate that patients with [...] to the appropriate provider. documented in this encounterAultman Hospital03-03-2023 Miscellaneous Notes* Telephone Encounter - Lynn Rodriguez Emg - 08/06/2022 2:12 PM EST Results from EMG performed on 08/05/22 were faxed to [facility] at fax number [phone] on 08/06/22. Fax confirmation received. documented in this encounterAultman Hospital03-02-2023 History of Present illness Narrative* Lori [...] Patiño NCST Lori Patel DO Staff Neurologist [facility] [place] documented in this encounterAultman Hospital03-02-2023 Miscellaneous Notes* Telephone Encounter - Veronica Zapata LPN - 08/05/2022 1:27 PM EST [employer] sent over a denial of coverage for out of network provider, spoke to patient andshe was made aware and want to keep appointment anyways. Forms sent for scanning in chart. documented in this encounterAultman Hospital06-27-2022 Miscellaneous Notes* Telephone Encounter - Latoya Clement PA-C - 11/30/2021 11:52 AM EDT [facility]. * Telephone Encounter - Maureen Martinez RN - 11/30/2021 11:23 AM EDT [facility] and is calling to ask if Latoya Clement in [facility] would send [facility]eflex and Bacitracin opth.ointment scripts to [facility] in [place]? She states she may have accidentally told Latoya to send it to [facility] but does not use that pharmacy anymore. Thank you. Maureen Martinez RN documented in this encounterAultman Hospital06-27-2022 History of Present illness Narrative* Latoya Clement PA-C - 11/30/2021 10:10 AM EDT Images from the original note were not included. This note was created using [employer]. Subjective Veronica Umaña is a 46 year [...] days. 15 capsule0 GI-Revive 225 gram Powder ([employer]) Take 1 tablespoons twice daily (1 tablespoon [...] D&C (MISSED AB 1ST TRIMESTER) 01/08/14 in [place] PAST SURGICAL HISTORY OF lap left shoulder [...] agreeable. Latoya Clement PA-C documented in this encounterAultman Hospital06-22-2022 Miscellaneous Notes* Telephone Encounter - Lauren Aparicio - 11/25/2021 9:47 AM EDT faxed. Lauren Aparicio * Telephone Encounter - Elinor Jones LPN - 11/24/2021 11:29 AM EDT Pt reports she was in [facility] this morning to be seen and tested for Covid. Pt is requesting that results be faxed to Dr. Layne when they become available. Elinor Jones LPN documented in this encounterAultman Hospital06-21-2022 History of Present illness Narrative* Palak Velazco APRN.PARALEGAL SECRETARY - 11/24/2021 11:02 AM EDT CC: Patient [...] D&C (MISSED AB 1ST TRIMESTER) 01/08/14 in [place] PAST SURGICAL HISTORY OF lap left shoulder torn labrum repair TONSILLECTOMY PRIMARY/SECONDARY <AGE 10 2004 Tonsillectomy ALLERGIES Cipro [Ciprofloxacin], Cymbalta [Duloxetine], Levoquin [Levofloxacin], Paba [P-Aminobenzoic Acid], Sulfa (Sulfonamide Antibiotics), and Z Pack [Azithromycin] MEDICATIONS Magnesium Citrate 150mg [address] ct[address] (Pure Encapsulations) Take 3 capsules daily. GI-Revive 225 gram Powder ([employer]) Take 1 tablespoons twice daily (1 tablespoon [...] plan. 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 Make sure you are taking your antihypertensives especially your metoprolol. Print Language: Welsh Disposition Disposition: Home, Self Care What to do if you have Problems For any increased pain, shortness of breath, bleeding, nausea or vomiting, chestpain, or any unexpected problems, contact your Primary Care Provider. Call [facility] ([phone]) or report to the closest Emergency Room. Call 911 if necessary. 10/31/24 1200 <Electronically signed by Jose Alexis MD> Cosigner Signature (if applicable): CC: COMPUTATIONAL SCIENTIST-C Elinor Aguilar ~ Signed [facility] Work Phone: Evaluation noteNo assessment information available [facility] Work Phone: Evaluation note* Diagnosis Close exposure to COVID-19 virus- Primary documented in this encounter [facility] note* Diagnosis Hordeolum externum of right upper eyelid- Primary Hordeolum externum documented in this encounter [facility] note* Diagnosis Chronic left-sided lumbar radiculopathy- Primary documented in this encounter [facility] note* Diagnosis Pain in left leg- Primary Chronic left-sided lumbar radiculopathy [facility] Diagnosis Chronic left-sided low back pain with left-sided sciatica- Primary documented in this encounter [facility] note* Diagnosis Onset Date Resolution Status Inclusion cyst of vulva none active Vaginitis noneactive [facility] Work Phone: Evaluation note* Diagnosis Paronychia of great toe of right foot- Primary Onychia and paronychia of toe Pediculosis capitis Pediculus capitis (head louse) documented in this encounter [facility] note* Diagnosis Near syncope- Primary Essential hypertension Unspecified essential hypertension Racing heart beat Unspecified tachycardia Yesica-Danlos syndrome type III Yesica-Danlos syndrome documented in this encounter [facility] note* Diagnosis Near syncope- Primary Essential hypertension Unspecified essential hypertension Racing heart beat Unspecified tachycardia Yesica-Danlos syndrome type III Yesica-Danlos syndrome Palpitations- Primary Racing heart beat Unspecified tachycardia Yesica-Danlos syndrome type III Yesica-Danlos syndrome Near syncope Essential hypertension Unspecified essential hypertension Shortness of breath [facility]* Diagnosis Near syncope- Primary Essential hypertension Unspecified essential hypertension Racing heart beat Unspecified tachycardia Yesica-Danlos syndrome type III Yesica-Danlos syndrome Palpitations Racing heart beat Unspecified tachycardia Yesica-Danlos syndrome type III Yesica-Danlos syndrome Near syncope Essential hypertension Unspecified essential hypertension Shortness of breath [facility]* Diagnosis Near syncope- Primary Essential hypertension Unspecified essential hypertension Racing heart beat Unspecified tachycardia Yesica-Danlos syndrome type III Yesica-Danlos syndrome Racing heart beat- Primary Unspecified tachycardia Essential hypertension Unspecified essential hypertension [facility] Dis[facility] instructions Additional Instructions Follow-up with your primary care provider. Make sure you are taking your antihypertensives especially your metoprolol.[facility] Work Phone: Reason for referral (narrative)* Outpatient Procedure (Routine) - Pending Review Specialty Diagnoses / Procedures Referred By Mariaelena conrad Referred To [facility] Diagnoses Chronic left-sided lumbar radiculopathy Procedures EMG(NEURO/NI) NERVE CONDUCTION STUDIES 9-10 STUDIES Priscila Umaña [address] [place] [address] Neurological [place] [address] [place] [address] Referral ID Status Reason Start Date Expiration Date Visits Requested Visits Authorized [id number] Pending Review Auto-Generat ed Referral 07/20/2022 07/20/2023 1 1 [facility] for referral (narrative)No reason for referral information availableWSamaritan Hospital Work Phone: Reason for visit Narrative* Cardiology (Routine) - Closed Specialty Diagnoses / Procedures Referred By Mariaelena conrad Referred To Contact Cardiology Diagnoses Palpitations Racing heart beat Yesica-Danlos syndrome type III Near syncope Essential hypertension Shortness of breath Procedures Cardiac holter monitor (8- 15 days) KS EXTERNAL ECG REC>48HR<7D REVIEW & INTERPRETATION [place] EXTERNAL ECG REC>48HR<7D RECORDING [place] EXTERNAL ECG REC>7D<15D RECORDING [place] EXTERNAL ECG REC>7D<15D REVIEW & INTERPRETATION Kate Hernandez, NATA - PARALEGAL SECRETARY [address] [facility] [address] [place] [address] Phone: tel: fax: Referral ID Status Reason Start Date Expiration Date Visits Re quested Visits Authorized [id number] Closed 01/08/2025 01/03/2026 1 1 [employer] Summary Purpose Family History No Family History [...] Yes August 24, 2021 2:50pm Power of Sheet Hanger No August 24 2:50pm Advance Directive Response Recorded Date/ Time Living Will Yes November 07, 2021 5 :40pm Power of Sheet Hanger Yes November 07, 2021 5:40pm Advance Directive Response Recorded Date/ Time Living Will Yes November 07, 2021 4 :40pm Power of Sheet Hanger Yes November 07, 2021 4:40pm Advance Directive Response Recorded Date/ Time Do you have a Healthcare Power of Sheet Hanger? No October 31, 2024 7:27am Do you have a Healthcare Power of Sheet Hanger? No October 26, 2024 5:30am Advance Directive Response Recorded Date/ Time Do you have a Healthcare Power of Sheet Hanger? No October 31, 2024 7:27am Do you have a Healthcare Power of Sheet Hanger? No November 05, 2024 3:35pm Do you have a Healthcare Power of Sheet Hanger? No October 26, 2024 5:30am Chief Complaint [...] 4-SELF PAY November 30, 2024 8:46 am Chief Complaint Admit Date allergic reaction October 26, 2024 5:27a m general illness October 31, 2024 7:18a m CHEST PAIN November 05, 2024 3:28p m HX LT LUMPECTOMY, FEELS LUMP ON LT November 26, 2024 1:39pm HYPERTENSION (STAT), CP, HTN November 27, 2024 6:56am BIRADS 4-SELF PAY November 30, 2024 8:46 am LABS December 04, 2024 7:48a m RESISTANT HYPERTENSION December 04, 2024 2: 25pm LT BREAST MASS X2 December 05, 2024 11:50 am LT BREAST MASS X2 December 05, 2024 1:33p m Reason for Visit Admit Date Left breast mass November 30, 2024 8:46 am Chief Complaint Admit Date allergic reaction October 26, 2024 5:27a m general illness October 31, 2024 7:18a m CHEST PAIN November 05, 2024 3:28p m HX LT LUMPECTOMY, FEELS LUMP ON LT November 26, 2024 1:39pm HYPERTENSION (STAT), CP, HTN November 27, 2024 6:56am BIRADS 4-SELF PAY November 30, 2024 8:46 am LABS December 04, 2024 7:48a m RESISTANT HYPERTENSION December 04, 2024 2: 25pm LT BREAST MASS X2 December 05, 2024 11:50 am LT BREAST MASS X2 December 05, 2024 1:33p m HYPERSOMNIA January 14, 2025 8: 04pm Health Concerns Infection Onset Date Last Indicated [...] s DATE CREATED AUTHOR AUTHOR'S ORGANIZ ATION 03/17/2024 [facility] DATE CREATED AUTHOR AUTHOR'S ORGANIZ ATION 01/26/2025 [facility] DATE CREATED AUTHOR AUTHOR'S ORGANIZ ATION 03/24/2025 [facility] DATE CREATED AUTHOR AUTHOR'S ORGANIZ ATION 03/26/2025 [facility] Goals (unrecognized section and content) Goals [...] or prosecute any alcohol or drug abuse patient.[facility] HospitalIn the event this information is protected by the Federal Confidentiality of Alcohol and Drug Abuse Patient Records regulations: The Federal rules restrict any use of the information to criminally investigate or prosecute any alcohol or drug abuse patient.[facility] HospitalIn the event this information is protected by the Federal Confidentiality of Alcohol and Drug Abuse Patient Records regulations: The Federal rules restrict any use of the information to criminally investigate or prosecute any alcohol or drug abuse patient.[facility] HospitalIn the event this information is protected by the Federal Confidentiality of Alcohol and Drug Abuse Patient Records regulations: The Federal rules restrict any use of the information to criminally investigate or prosecute any alcohol or drug abuse patient.[facility] HospitalIn the event this information is protected by the Federal Confidentiality of Alcohol and Drug Abuse Patient Records regulations: The Federal rules restrict any use of the information to criminally investigate or prosecute any alcohol or drug abuse patient.[facility] HospitalIn the event this information is protected by the Federal Confidentiality of Alcohol and Drug Abuse Patient Records regulations: The Federal rules restrict any use of the information to criminally investigate or prosecute any alcohol or drug abuse patient.[facility] HospitalIn the event this information is protected by the Federal Confidentiality of Alcohol and Drug Abuse Patient Records regulations: The Federal rules restrict any use of the information to criminally investigate or prosecute any alcohol or drug abuse patient.[facility] HospitalIn the event this information is protected by the Federal Confidentiality of Alcohol and Drug Abuse Patient Records regulations: The Federal rules restrict any use of the information to criminally investigate or prosecute any alcohol or drug abuse patient.[facility] HospitalIn the event this information is protected by the Federal Confidentiality of Alcohol and Drug Abuse Patient Records regulations: The Federal rules restrict any use of the information to criminally investigate or prosecute any alcohol or drug abuse patient.[facility] HospitalIn the event this information is protected by the Federal Confidentiality of Alcohol and Drug Abuse Patient Records regulations: The Federal rules restrict any use of the information to criminally investigate or prosecute any alcohol or drug abuse patient.[facility] HospitalIn the event this information is protected by the Federal Confidentiality of Alcohol and Drug Abuse Patient Records regulations: The Federal rules restrict any use of the information to criminally investigate or prosecute any alcohol or drug abuse patient.[facility] HospitalIn the event this information is protected by the Federal Confidentiality of Alcohol and Drug Abuse Patient Records regulations: The Federal rules restrict any use of the information to criminally investigate or prosecute any alcohol or drug abuse patient.[facility] Reason for Visit (unrecogniz ed section and content) Reason Comments Eye Problem right eye swelling a nd pain x last night Specialty Diagnoses / Procedures Referred By Mariaelena conrad Referred To Contact Family Practice / [facility] Diagnoses sore throat, fever, fatigue, chills and bodyaches Procedures OFFICE/OUTPATIENT ESTABLISHED MOD MDM 30-39 MIN EST SAME DAY Self Palak Velazco APRN.PARALEGAL SECRETARY [address] [place] [address] Referral ID Status Reason Start Date Expiration Date Visits Re quested Visits Authorized [id number] Closed 06/06/2021 06/05/2022 2 2 Reason Comments Cough Pt reported +Covid e xposure family member, SOB, denied chest pain Diarrhea Pt denied blood, muc us Nausea, sore throat pain rated 5 x 4 days Referral ID Status Reason Start Date Expiration Date Visits Re quested Visits Authorized [id number] Closed 06/06/2021 06/05/2022 1 1 Reason Comments Results Reason Comments Prescription Request to [facility] Reason Comments Forms [employer] Reason Onset Date Comments EMG 08/05/2022 Specialty Diagnoses / Procedures Referred By Mariaelena conrad Referred To Contact Neurology / NEUROMUSCULAR Diagnoses Muscle weakness MUSCLE WEAKNESS Procedures OFFICE/OUTPATIENT NEW MODERATE MDM 45-59 MINUTES NEW NI NEUROMUSC PAIN [facility] [address] [place] [address] Salvador Arshad MD [address] [facility] [address] [place] [address] Referral ID Status Reason Start Date Expiration Date V isits Requested Visits Authorized [id number] Authorized 07/22/2022 07/22/2023 20 20 Reason Comments Faxed EMG Results Reason Comments New Patient Weakness Pain, weakness, burn ing, numbness tingling pinpricks constant since 2009, muscle atrophy, progressively worsening Reason Comments Eye Problem Right eye swelling a nd right big toe pain-from pedicure yesterday Reason Comments New Patient Specialty Diagnoses / Procedures Referred By Contac t Referred To Contact Cardiology Diagnoses Fluctuating blood pressures Syncope Procedures KS OFFICE/OP CONSLTJ NEW/EST PT MOD MDM 40 MINUTES [facility] [place] [address] [place] [address] Phone: tel: fax: Julienne Skinner MD [address] [address] Phone: tel: fax: Referral ID Status Reason Start Date Expiration Date Visits Re quested Visits Authorized [id number] Closed 11/30/2024 11/30/2025 1 1 Reason Onset Date Comments Other 01/07/2025 Awaking during t he night, increased heart rate, increased BP Reason Comments Follow-up Reason Comments Appointment 01/24/25 Appt Issue Reason Comments 1 Month Follow Up Reason Onset Date Comments Other 03/22/2025 Care Teams (unrecognized sec tion and content) Hot Header Operator Relationship Specialty Start Date End Date Natividad Yee PA-C PCP - General Family Practice 10/21/16 Natividad Yee PA-C Referring Family Practice 01/30/20 Hot Header Operator Relationship Specialty Start Date End Date Natividad Yee PA-C PCP - General Family Practice 10/21/16 Natividad Yee PA-C Referring Family Practice 01/30/20 Team Status: Active Member Role Status Dates Natividad COMBS PA-C Family Provider Active Natividad COMBS PA-C Primary Care Provider Active Team Status: Active Member Role Status Dates Natividad Joshua PA, PA-C Primary Care Provider Active Dr. Pedro Eckert MD Attending Provider Active Team Status: Inactive Member Role Status Natividad COMBS PA-C Primary Care Provider Active Dr. Priscila Umaña MD Attending Provider Active Hot Header Operator Relationship Specialty Start Date End Date NakiaKeiraNatividadellen Ferro PA-C PCP - General Family Medicine 10/21/16 Natividad Yee PA-C Referring Family Medicine 01/30/20 Team Status: Active Member Role Status Natividad COMBS PA-C Primary Care Provider Active Dr. Pedro Eckert MD Attending Provider Active Dr. Priscila Umaña MD Referring Provider Active Team Status: Active Member Role Status Natividad COMBS PARadha Primary Care Provider Active DANIELLE NAVA Attending Provider, Referring Provid er Active Team Status: Inactive Member Role Status Natividad COMBS PA-C Primary Care Provider Active Dr. Gloria Layne MD Attending Provider, Referring Pr ovider Active Hot Header Operator Relationship Specialty Start Date End Date Natividad Yee PA-C PCP - General Family Medicine 10/21/16 Natividad Yee PA-C Referring Family Medicine 01/30/20 Hot Header Operator Relationship Specialty Start Date End Date Natividad Yee PA-C PCP - General Family Medicine 10/21/16 Natividad Yee PA-C Referring Family Medicine 01/30/20 Hot Header Operator Relationship Specialty Start Date End Date Natividad Yee PA-C PCP - General Family Medicine 10/21/16 Natividad Yee PA-C Referring Family Medicine 01/30/20 Hot Header Operator Relationship Specialty Start Date End Date Natividad Yee PA-C PCP - General Family Medicine 10/21/16 Natividad Yee PA-C Referring Family Medicine 01/30/20 Team Status: Inactive Member Role Status Dates [facility] GARRET PA-C Primary Care Provider Active Dr. Gloria Layne MD Attending Provider Active Team Status: Inactive Member Role Status Dates [facility] GARRET PA-C Primary Care Pro vider, Attending Provider, Referring Provider Active Team Status: Inactive Member Role Status [facility] GARRET PA-C Primary Care Provider Active DANIELLE NAVA Referring Provider Active Dr. Meg Sadler MD Attending Provider Active Team Status: Inactive Member Role Status [facility] GARRET PA-C Primary Care Provider, Referri ng Provider Active RAYRAY Fatima Attending Provider Active Team Status: Inactive Member Role Status [facility] GARRET PA-C Primary Care Provider Active RAYRAY Fatima Attending Provider, Referring Pr ovider Active Hot Header Operator Relationship Specialty Start Date End Date Natividad Yee PA-C PCP - General Family Medicine 10/21/16 Natividad Yee PA-C Referring Family Medicine 01/30/20 Team Status: Inactive Member Role Status Dates [facility] GARRET PA-C Primary Care Provider Active Start: September 06, 2024 End: September 06, 2024 Elinor Aguilar NP, COMPUTATIONAL SCIENTIST-C Attending Provider Active Start: September 06, 2024 End: September 06, 2024 Elinor Aguilar NP, COMPUTATIONAL SCIENTIST-C Referring Provider Active Start: September 06, 2024 End: September 06, 2024 Team Status: Active Member Role Status Dates Elinor Aguilar NP COMPUTATIONAL SCIENTIST-C Primary Care Provider Activ e Team Status: Inactive Member Role Status Dates Dr. Ramesh Coffey DO Emergency Provider Active Start: October 26, 2024 End: October 26, 2024 Elinor Aguilar COMPUTATIONAL SCIENTIST, COMPUTATIONAL SCIENTIST-C Primary Care Provider Activ e Start: October 26, 2024 End: October 26, 2024 Team Status: Inactive Member Role Status Dates Elinor Aguilar NP, COMPUTATIONAL SCIENTIST-C Primary Care Provider Activ e Start: October [...] 2024 End: October 26, 2024 Elinor Aguilar COMPUTATIONAL SCIENTIST, COMPUTATIONAL SCIENTIST-C Primary Care Provider Activ e Start: October [...] Member Role Status Dates Elinor Aguilar NP, COMPUTATIONAL SCIENTIST-C Primary Care Provider Activ e Start: October 31, 2024 End: October 31, 2024 Jose Alexis MD Attending Provider Active Star t: October 31, 2024 End: October 31, 2024 Jose Aelxis MD Emergency Provider Active Star t: October [...] Status: Inactive Member Role/Relationship Status Dates Natividad COMBS PA-C Primary Care Provider Active Start: September 06, 2024 End: September 06, 2024 Elinor Aguilar COMPUTATIONAL SCIENTIST, COMPUTATIONAL SCIENTIST-C Attending Provider Active Start: September 06, 2024 End: September 06, 2024 Elinor Aguilar COMPUTATIONAL SCIENTIST, COMPUTATIONAL SCIENTIST-C Referring Provider Active Start: September 06, 2024 End: September 06, 2024 Team Status: Inactive Member Role/Relationship Status Dates Dr. Ramesh Coffey DO Attending Provider Active Start: October 26, 2024 End: October 26, 2024 Dr. Ramesh Coffey , Emergency Provider Active Start: October 26, 2024 End: October 26, 2024 Elinor Aguilar COMPUTATIONAL SCIENTIST, COMPUTATIONAL SCIENTIST-C Primary Care Provider Activ e Start: October 26, 2024 End: October 26, 2024 Team Status: Inactive Member Role/Relationship Status Dates Elinor Aguilar COMPUTATIONAL SCIENTIST, COMPUTATIONAL SCIENTIST-C Primary Care Provider Activ e Start: October [...] November 27, 2024 End: November 27, 2024 Hot Header Operator Relationship Specialty Start Date End Date Kala Solares MD [address] [facility] [place] [id number] PCP - General Family Medicine 11/30/24 Team Status: Active Member Role/Relationship Status Dates Dr. Kala Solares MD Primary Care Provider Active Start: December 04, 2024 Dr. Kala Solares MD Attending Provider Active Start: December 04, 2024 Dr. Kala Solares MD Referring Provider Active Start: December 04, 2024 Team Status: Inactive Member Role/Relationship Status Dates Dr. Kala Solares MD Primary Care Provider Active Start: December 04, 2024 End: December 04, 2024 Dr. Kala Solares MD Attending Provider Active Start: December 04, 2024 End: December 04, 2024 Dr. Kala Solares MD Referring Provider Active Start: December 04, 2024 End: December 04, 2024 Team Status: Active Member Role/Relationship Status Dates Dr. Kala Solares MD Primary Care Provider Active Start: December 05, 2024 Dr. Anay Lugo MD Attending Provider Active Start: December 05, 2024 Dr. Anay Lugo MD Referring Provider Active Start: December 05, 2024 Team Status: Active Member Role/Relationship Status Dates Dr. Kala Solares MD Primary Care Provider Active Start: December 05, 2024 Dr. Anay Lugo MD Attending Provider Active Start: December 05, 2024 Dr. Anay Lugo MD Referring Provider Active Start: December 05, 2024 Dr. Anay Lugo MD Other Provider Active S tart: December 05, 2024 Team Status: Inactive Member Role/Relationship Status Dates Dr. Kala Solares MD Primary Care Provider Active Start: December 04, 2024 End: December 04, 2024 Dr. Kala Solares MD Attending Provider Active Start: December 04, 2024 End: December 04, 2024 Dr. Kala Solares MD Referring Provider Active Start: December 04, 2024 End: December 04, 2024 Team Status: Inactive Member Role/Relationship Status Dates Dr. Kala Solares MD Primary Care Provider Active Start: December 05, 2024 End: December 05, 2024 Dr. Anay Lugo MD Attending Provider Active Start: December 05, 2024 End: December 05, 2024 Dr. Anay Lugo MD Referring Provider Active Start: December 05, 2024 End: December 05, 2024 Hot Header Operator Relationship Specialty Start Date End Date Kala Solares MD [address] [place] [phone] PCP - General Family Medicine 11/30/24 Hot Header Operator Relationship Specialty Start Date End Date Kala Solares MD [address] [place] [phone] PCP - General Family Medicine 11/30/24 Team Status: Inactive Member Role/Relationship Status Dates Dr. Ramesh Coffey DO Attending Provider Active Start: October 26, 2024 End: October 26, 2024 Dr. Ramesh Coffey DO Emergency Provider Active Start: October 26, 2024 End: October 26, 2024 Elinor Aguilar COMPUTATIONAL SCIENTIST, COMPUTATIONAL SCIENTIST-C Primary Care Provider Activ e Start: October 26, 2024 End: October 26, 2024 Team Status: Inactive Member Role/Relationship Status Dates Elinor Aguilar COMPUTATIONAL SCIENTIST, COMPUTATIONAL SCIENTIST-C Primary Care Provider Activ e Start: October [...] 2024 End: November 26, 2024 Team Status: Inactive Member Role/Relationship Status Dates Dr. Kala Solares MD Primary Care Provider Active Start: November 27, 2024 End: November 27, 2024 Dr. Kala Solares MD Attending Provider Active Start: November 27, 2024 End: November 27, 2024 Dr. Kala Solares MD Referring Provider Active Start: November 27, 2024 End: November 27, 2024 Team Status: Active Member [...] Solares MD Primary Care Provider Active Start: December 04, 2024 Dr. Meg Sadler MD Attending Provider Active Start: December 04, 2024 Team Status: Inactive Member Role/Relationship Status Dates Dr. Kala Solares MD Primary Care Provider Active Start: January 14, 2025 End: January 14, 2025 Dr. Kala Solares MD Attending Provider Active Start: January 14, 2025 End: January 14, 2025 Dr. Kala Solares MD Referring Provider Active Start: January 14, 2025 End: January 14, 2025 Team Status: Active Member Role/Relationship Status Dates Dr. Kala Solares MD Primary Care Provider Active Start: January 17, 2025 Dr. Kala Solares MD Attending Provider Active Start: January 17, 2025 Team Status: Inactive Member Role/Relationship Status Dates Dr. Kala Solares MD Primary Care Provider Active Start: January 17, 2025 End: January 17, 2025 Dr. Kala Solares MD Attending Provider Active Start: January 17, 2025 End: January 17, 2025 Hot Header Operator Relationship Specialty Start Date End Date Natividad Yee PA-C PCP - General Family Medicine 10/21/16 Natividad Yee PA-C Referring Family Medicine 01/30/20 Hot Header Operator Relationship Specialty [place] [address] [place] [address] [place] [phone] PCP - General Family Medicine 11/30/24 Hot Header Operator Relationship Specialty Start Date End Date Kala Solares MD [address] [place] [address] PCP - General Family Medicine 11/30/24 FOR RECORDS PERTAINING TO PATIENTS WHO ARE [...] BE BASED ON THE PRIMARY CLINICAL RECORDS. [employer] provides no warranty or guarantee of the accuracy or completeness of information in this document.
--- OUTSIDE RECORDS SUMMARY | 2025-03-26 15:49 | XMS RPT_ITS | CCD ---
Author Organization [facility] Care Team Providers Care Safety Instructor Name Role Phone PATRICIA Vasquez, Brook Tristan Unavailable Unavailabl e Nakia PA, PA-C Natividad Primary Care Provider Dr. Pedro Ekcert Attending Provider Dr. Kevin Tony Referring Provider Nakia PA-C, Natividad D Primary Care Provider [phone] Nakia PA-C, Natividad D Unavailable [phone] Nakia PA, PA-C Natividad Primary Care Provider Dr. Pedro Eckert Attending Provider Nakia PA-C, Natividad D Primary Care Provider Nakia PA-C, Natividad D Unavailable Dr. Priscila Umaña Referring Provider Unavailable Nakia COBMS, PA-C Natividad Primary Care Provider [phone] Dr. Pedro Eckert Attending Provider Dr. Priscila Umaña Referring Provider Unavailable Nakia PA, PA-C Natividad Primary Care Provider Nakia PA, PA-C Natividad Referring Provider RAYRAY Tran Attending Provider Nakia PA-C, Natividad D Primary Care Provider NATIVIDAD YEE Attending Unavailable VANITA YEELY Primary Care Unavailable NATIVIDAD YEE Admitting Unavailable [place] PA-C, Natividad Primary Care Provider [phone] Jeff ARMOR RECONNAISSANCE SPECIALIST-C, Elinor Lyle Attending Provider Unava ilable Jeff ARMOR RECONNAISSANCE SPECIALIST-C, Elinor Lyle Referring Provider Unava ilable Erlinda DAVID, Dr. Chandler Emergency Provider Jeff ARMOR RECONNAISSANCE SPECIALIST-C, Elinor Lyle Primary Care Provider Un available Jose Alexis MD Emergency Provider Dr. Ramesh Coffey DO Attending Provider NissaGilles DAVID, Dr. Gay Referring Provider [facility], Dr. Gay Emergency Provider Care Physician, No Primary Primary Care Provider Unavailable Jose Alexis MD Attending Provider [facility] hospital[facility]illes DAVID, Dr. Gay Attending Provider Beck COLLINS, Dr. Armendariz Primary Care Provider Dr. Kala Solares MD Attending Provider Dr. Kala Solares MD Referring Provider Dr. Dillon Florez MD Attending Provider Dr. Anay Lugo MD Attending Provider Beck COLLINS, Kala Primary Care Provider Dr. Anay Lugo MD Referring Provider Dr. Anay Lugo MD Other Provider Doroteo COLLINS, Dr. Weaver Attending Provider SALVADOR ARSHAD Attending Unavailable SELF Referring Unavailable NATIVIDAD YEE Primary Care Unavailable KATE HERNANDEZ Referring Unavailable KATE HERNANDEZ Attending Unavailable MIEDEL, KALA Primary Care Unavailable ISAR GODFREY Attending Unavailable BECK, KALA Primary Care [...] Primary Care Unavailable Miedel, Kala Attending Unavailable [place] Natividad COMBS Primary Care Unavailable Elinor Aguilar [...] (1 source) Azithromycin Drug Allergy 11-17-19 16 [facility] Work Phone: (1 source) Ciprofloxacin Drug Allergy 11-17-19 16 [facility] Work Phone: (1 source) levoFLOXacin Drug Allergy 11-17-19 16 [facility] Work Phone: (1 source) Sulfacetamide Drug Allergy 11-17-19 16 [facility] Work Phone: (20 sources) Azithromycin; Translations: [AZITHROMYCIN] Drug Allergy 03-02-20 07 [facility] (20 sources) Quinolones (Antibiotic); Translations: [QUINOLONES] Allergy to substance 03-02-20 07 [facility] Work Phone: (20 sources) Sulfonamides (Antibiotic); Translations: [SULFA (SULFONAMIDE ANTIBIOTICS)] Allergy to substance 03-02-20 07 [facility] (20 sources) 4-Aminobenzoic Acid; Translations: [P-AMINOBENZOIC ACID] Drug Allergy 03-02-20 07 [facility] (20 sources) Ciprofloxacin; Translations: [CIPROFLOXACIN] Drug Allergy 03-02-20 07 [facility] (20 sources) DULoxetine; Translations: [DULOXETINE] Drug Allergy 05-16-20 07 Intolerance [facility] (13 sources) levoFLOXacin; Translations: [LEVOFLOXACIN] Drug Allergy 07-15-19 15 [facility] (8 sources) Botulinum Toxin Type A Drug Allergy 12-01-19 25 [facility] (13 sources) cyclobenzaprine Drug Allergy 12-01-19 25 Other [facility] (13 sources) gabapentin Drug Allergy 12-01-19 25 Other [facility] (8 sources) Ivermectin Drug Allergy 12-01-19 25 Nausea/Vom/Adriane rrhea [facility] (13 sources) Naltrexone Drug Allergy 12-01-19 25 Other [facility] (13 sources) traMADol Drug Allergy 12-01-19 25 Other [facility] (7 sources) Sulfonamides (Antibiotic) Drug Allergy 03-02-20 07 [facility] (5 sources) Botulinum Toxin Type A Drug Allergy 12-01-19 25 [facility] (5 sources) Ivermectin Drug Allergy 12-01-19 25 [facility] (1 source) Azithromycin Drug Allergy 12-01-19 25 [facility] (1 source) Ciprofloxacin Drug Allergy 12-01-19 [facility] (1 source) cyclobenzaprine Drug Allergy 12-01-19 [facility] (1 source) gabapentin Drug Allergy 12-01-19 [facility] (1 source) Ivermectin Drug Allergy 12-01-19 [facility] (1 source) Naltrexone Drug Allergy 12-01-19 [facility] (1 source) traMADol Drug Allergy 12-01-19 [facility] (1 source) prabotulinumtoxinA- xvfs Drug allergy (disorder) 12-01-19 [facility] Medications Current Medications Medication Drug Class(es) [...] on above: Take 1 capsule by mo [facility] three times daily for 5 days. [...] Take 50 mg by mouth once daily. [place] 0-Pzk-Ewj-Fish Oil (Fish Oil) 60-90-500 mg capsule (8 sources) Start: 11-30-2024 [place] 7-Mzo-Axe-Fish Oil (Fish Oil) 60-90-500 mg capsule Active [...] 11-05-2024 End: 11-05-2024 Amitriptyline (Bulk) powder Discontinued [facility] November 05, 2024 12:00am November 05, [...] 11-06-19 Gabapentin (Bulk) 100 % powder Discontinued [facility] November 05, 2024 12:00am November 05, 2024 5:07pm Start: 10-26-2024 End: 11-05-2024 take 100-200 mg by mouth once daily as needed for pain Gabapentin 100 mg capsule Discontinued 100 - 200 mg PO DAILY as needed for pain October 26, 2024 12:00am November 05, 2024 5:07pm GI-Revive 225 gram Powder (Ku6 for [employer]) (11 sources) Start: 07-25-2020 End: 11-16-2023 GI-Revive 225 gram Powder ([employer]) Indications: Other chronic pain , History of thyroid disease , Arthralgia, unspecified joint , Abnormal increased muscle tightness , Mold exposure , Chronic idiopathic constipation , Bloating , Chronic fatigue, unspecified , Diarrhea of presumed infectious origin , Heavy metal exposure Take 1 tablespoons twice daily (1 tablespoon = 1.5 grams L-glut) 0 07/25/2020 11/16/2023 Discontinued Start: 07-25-2020 GI-Revive 225 gram Powder ([employer]) Indications: Other chronic pain , History of [...] daily (1 tablespoon = 1.5 grams L-glut) Tvtqgfzm-Lbu-Wtsqehap t-Vit D3 (11 sources) Start: 11-27-2019 End: 05-09-2020 Bpdqizyw-Nzn-Chbbidwsh-Vi t D3 Discontinued 1 EACH PO DAILY November 27, 2019 1:16pm May 09, 2020 10:22am Start: 11-27-2019 End: 05-09-2020 Fpnjfudf-Url-Ixggwzcxu-Vit D 3 Discontinued 1 EACH PO DAILY November 27, 2019 12:00am May 09, 2020 10:22am Start: 11-27-2019 End: 05-09-2020 Zvennwhw-Xgm-Momtuaxxs-Vit D 3 Discontinued 1 EACH PO DAILY November 26, 2019 11:00pm May 09, 2020 9:22am Uhurwost-Wah-Whpipjxfu-Vit D 3 1 EACH tablet (11 sources) Start: 11-27-2019 End: 05-09-2020 Mhtnbpbc-Krn-Egdhnoatk-Vit D 3 1 EACH tablet Discontinued 1 [...] 2023 8:43am must administer with a meal/food [place]-3 Fatty Acids (11 sources) Start: 02-28-2019 End: 05-09-2020 take 1000 mg by mouth once daily [place]-3 Fatty Acids Discontinued 1000 MG PO DAILY February 28, 2019 2:36pm May 09, 2020 10:23am Start: 02-28-2019 End: 05-09-2020 take 1000 mg by mouth once daily [place]-3 Fatty Acids Discontinued 1000 MG PO DAILY February 28, 2019 12:00am May 09, 2020 10:23am Start: 02-28-2019 End: 05-09-2020 take 1000 mg by mouth once daily [place]-3 Fatty Acids Discontinued 1000 MG PO DAILY February 27, 2019 11:00pm May 09, 2020 9:23am [place]-3 Fatty Acids 1,000 mg capsule (11 sources) Start: 02-28-2019 End: 05-09-2020 take 1 capsule by mouth once daily [place]-3 Fatty Acids 1,000 mg capsule Discontinued 1000 [...] 1 tablet by mouth daily VIT-FE FUMARATE-FA [id number] Natividad Yee PA-C QUEtiapine 25 mg oral [...] to 1 tablet before bed QUETIAPINE FUMARATE [id number] Natividad Yee PA-C QUEtiapine 50 mg tablet [...] C No.3 (B Complex Plus Vitamin C) 73-46-47-5-300 mg capsule (20 sources) Start: 02-28-2019 End: 05-09-2020 Vitamin B Comp And C No.3 (B Complex Plus Vitamin C) 03-64-20-5-300 mg capsule Discontinued 1 CAP PO DAILY February 28, 2019 2:37pm May 09, 2020 10:23am Start: 02-28-2019 End: 05-09-2020 Vitamin B Comp And C No.3 (B Complex Plus Vitamin C) 96-62-83-5-300 mg capsule Discontinued 1 NMA PO DAILY February 28, 2019 12:00am May 09, 2020 10:23am Start: 02-28-2019 End: 05-09-2020 Vitamin B Comp And C No.3 (B Complex Plus Vitamin C) 42-08-32-5-300 mg capsule Discontinued 1 CAP PO DAILY February 28, 2019 12:00am May 09, 2020 10:23am Start: 02-28-2019 End: 05-09-2020 Vitamin B Comp And C No.3 (B Complex Plus Vitamin C) 33-85-22-5-300 mg capsule Discontinued 1 CAP PO DAILY [...] had no further questions at this time. [facility] 36 Pt is calling in wit h questions regarding medications and refills. Please call [facility] 36on 02-08-2025 36 I called and spoke [...] night. She was grateful for the call. [facility] 36 Pt calling in left a voice mail stating she had a bad night last night had to adjust her medications and is requesting to speak to a nurse. Please call [place] 56029on 02-06-2025 36 She was titrating metoprolol down based on Dr. Clarence islas to see if her symptoms would come back. Instructed pt to take metoprolol 75mg in morning with amlodipine and 100mg metoprolol in evening. She will do this. If any issues she will definitely contact the office. [facility] 36 S: Patient spoke wit h CAC [...] to answer question Protocols used: Medication Question [id number] [facility] 36on 02-01-2025 36 Pt called in to the office today for the results of her HM. Please advise [facility] Office Visiton 01-30-2025 Follow-up visit [id number] Veronica Umaña 1975 F Date Provider Department Center 01/30/2025 [id number] GODFREY [facility] NE None Family History Problem Relation Age of Onset Hypertension Father Hypertension Brother Family Status - Relation Status Age at Father Brother Level of Service:32684 CO OFFICE/OUTPATIENT ESTABLISHED MOD MDM 30 MIN Reason for Visit and Comments: 1 Month Follow Up [[id number]] Normal [facility] Progress Noteon 01-30-2025 Progress Note Etiology unclear. In setting of sleep disruption and uncontrolled Htn. Probable sinus tach based on prior monitors but formally need to confirm. -Continue BP mgt -F/u EM report. Normal [facility] Progress Note Stable. She has managed her [...] for atherosclerotic GUERRERO or fibromuscular dysplasia). Normal [facility] Progress Note [facility] [place] [address] [facility] [address] [facility] [address] Dept: [phone] Dept Visit type: Established : 1975 Reason [...] met Dr. Godfrey 12/2024. Had treatment in [place]. Had trouble getting in to see cardiology so is here in [facility] for this. Had a lot of stressors [...] Had a primary care physician and a charter coordinator providing care but no longer doing so [...] Mostly for her back. Began seeing a charter coordinator who prescribed her ivermectin for inflammation and [...] HR elev 150 bpm. Went back to [place] ED. Took an EKG and test, and troponin. All of which were negative. Then 3rd visit to [place] ED. Feeling something's wrong. Repeated troponin, D-dimer. [...] this could be important to understand her long term care administrator course. Patient tells me that pheochromocytoma was evaluated and negative. Uncle is a airborne electronics analyst and functional medicine doc Pt reportedly treated [...] and less cramps (more content not included)... [facility] 36on 01-29-2025 36 Also sent a secure c hat to Sveta and she is working on getting HM into pts chart for miguel appt [facility] 36 Called PCP LMOM for records to be faxed [facility] 36on 01-25-2025 36 Called PCP LMOM for results of testing to be faxed to our office [facility] 36 Returned patient's c all regarding her [...] states her Uncle used to be a airborne electronics analyst (currently works in functional medicine per patient) [...] unsatisfied with the care she receives at [facility] and is in the process of relocating to be closer to [facility]. She states that she's concerned she will continue having symptoms at night and will have to go to [place] since they are the closest hospital. Informed [...] had no further questions at this time. [facility] 36 Pt called in today l eft a voice mail stating she has been up all night and was unable to sleep due to elevated HR. She states when she lays down her heart rate goes up. She is requesting a call from a nurse [facility] CNPNon 01-24-2025 CNPN Telephone (NNSTFM) -- VERONICA UMAÑA ([id number]) 1975 F Date Time Provider Department 01/24/25 SALVADOR ARSHAD [facility] During your visit today, we [...] to report the situation. Pt called a [facility] number (unsure where) and was routed to our office. Apologized for the experience today. Offered to reschedule with another provider at a different location. Pt declined. Escalated the situation to Lucy Cook for follow up. Salvador Campbell MD 01/24/2025 5:01 PM Signed Patient checked in at the front end web developer at 12:08 for [...] NOS [E55.9] 04/20/2007 MYALGIA AND MYOSITIS NOS [[id number]] 05/16/2007 History of thyroid disease [Z86.39] 11/21/2013 Encounter Status:Closed by JANE FLETCHER on 01/24/25 [facility] 36on 01-23-2025 36 Pt called back to sp eak to Dr. Godfrey. She states she doesn't think Deana realizes the seriousness of her condition. 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 She is requesting a call back before the end of the day Please advise [facility] 36 Patient called in regarding HR concerns; [...] cycle (reports her uncle, a functional medicine airborne electronics analyst told her this). She says she will [...] plans to see Dr Trenton Henry in [place] as he is museum docent/functional hypertension specialist that her Uncle (a airborne electronics analyst) was able to help her get in with; she reports she will have a 2 day work-up April 15- for this and he will follow with her for a year along with us and her PCP. She really wants an answer from Dr Godfrey by the time we leave. I think a ALCOHOOTt message would be very helpful for her. Normal [facility] DHEA Sulfateon 01-21-2025 DHEA SULFATE 217.0 ug/dL Normal 41.2-243.7 [facility] Comment on above: Order Comment: N Performed By: #### L 499.0042 #### [facility] [address] [facility] [id number] Thyroid Antibodieson 025 TG AB < 1.0 Normal 0.0-0.9 [facility] Comment on above: Result Comment: Thyr oglobulin Antibody measured by [employer] It should be noted that the presence of thyroglobulin antibodies may not be pathogenic nor diagnostic, especially at very low levels. The assay home demonstration agent has found that four percent of individuals without evidence of thyroid disease or autoimmunity will have positive TgAb levels up to 4 IU/mL. Performed at: [employer] [address] [id number] Industrial Tractor Driver: Kalpesh Thompson PhD, Phone: [phone] Performed By: #### L 499.0042 #### [facility] [address] [place], [address] THYR PEROX AB < 9 Normal 0-34 [facility] Comment on above: Performed By: #### L 499.0042 #### [facility] [address] [facility] [facility] [address] PROGESTERONE 4317on 01-20-20 25 PROGESTERONE 0.7 ng/mL Normal . [facility] Comment on above: Order Comment: Y Result Comment: Foll icular phase 0.1 - 0.9 Luteal phase 1.8 - 23.9 Ovulation phase 0.1 - 12.0 First trimester 11.0 - 44.3 Second trimester 25.4 - 83.3 Third trimester 58.7 - 214.0 Postmenopausal 0.0 - 0.1 Performed at: [facility] [id number] Industrial Tractor Driver: Kalpesh Thompson PhD, Phone: [phone] Performed By: #### L 499.0042 #### [facility] [address] [place], [address] 36on 01-18-2025 36 Per MARSHA Dejesus: Reviewed. [...] more. She was thankful for the call. [facility] 36 I called and spoke t moisés [...] half. She was thankful for the call. [facility] 36 Please call pt she h as multiple medication questions. Experiencing a low heart rate at night. Please call [facility] Estradiolon 01-17-2025 ESTRADIOL 115.0 pg/mL [facility] Comment on above: Result Comment: FEMA LES [...] 18. Performed By: #### L 499.0042 #### [facility] [address] [place], [place], [address] Follicle Stimulating Hormone on 01-17-2025 FSH 9.1 mIU/mL [facility] Comment on above: Result Comment: FEMA LE: Follicular: 1.4 - 18.1 mIU/mL Midcycle: 3.4 - 33.4 mIU/mL Luteal: 1.5 - 9.1 mIU/mL Post Menopause: 23.0 - 116.3 mIU/mL MALE: 1.4 - 18.1 mIU/mL Performed By: #### L 501.9520, L501.44117, L503.0106, L3300.1750, L3100.5125, L506.0400, L801.2600, L3300.1500, L3300.6750 #### [facility] [address] [place], [place], [id number] (601) Free T3on 01-17-2025 Free T3 [Mass/Vol] 3.0 pg/mL Normal 2.18-3.98 [facility] Comment on above: Order Comment: Y Performed By: #### L 501.9520, L501.98088, L503.0106, L3300.1750, L3100.5125, L506.0400, L801.2600, L3300.1500, L3300.6750 #### [facility] [address] [place], [place], [id number] Free B2Njiudzx By: Kala sharma on 01-17-2025 Free T3 [Mass/Vol] 3.0 pg/mL 2.18-3.98 [facility] Serum or plasma estradiol me asurement after follitropin dose (mass/volume)Ordered By: Kala Solares on 01-17-2025 E2 post dose follitropin [Mass/Vol] 115.0 pg/mL [facility] Comment on above: FEMALES ADULT FEMALE : [...] on 01-17-2025 TPO Ab Qn [IU]/mL 0-34 [facility] T4 Free Directon 01-17-2025 T4 FREE DIRECT 1.50 ng/dL High 0.76-1.46 [facility] Comment on above: Order Comment: Y Performed By: #### L 501.9520, L501.00345, L503.0106, L3300.1750, L3100.5125, L506.0400, L801.2600, L3300.1500, L3300.6750 #### [facility] [address] [facility] [address] [place], [place], [id number] T4 freeOrdered By: Kala sharma on 01-17-2025 Free T4 [Mass/Vol] 1.50 ng/dL High 0.76-1.46 [facility] TSH DL <= 0.005 mIU/L QnOrde red By: Kala Solares on 01-17-2025 TSH Qn 0.435 uIU/mL 0.300-4.20 0 [facility] Thyroid Stim Hormone (TSH)on 01-17-2025 TSH 0.435 uIU/mL Normal 0.300-4.20 0 [facility] Comment on above: Performed By: #### L 501.9520, L501.59692, L503.0106, L3300.1750, L3100.5125, L506.0400, L801.2600, L3300.1500, L3300.6750 #### [facility] [address] [place], [place], [id number] Vitamin B12on 01-17-2025 Cobalamin (Vitamin B12) [Mass/Vol] 607 pg/mL Normal 180-914 [facility] Comment on above: Performed By: #### L 501.9520, L501.04964, L503.0106, L3300.1750, L3100.5125, L506.0400, L801.2600, L3300.1500, L3300.6750 #### [facility] [address] [place], [address] Vitamin B12 ser/plasOrdered By: Kala Slaughteredith on 01-17-2025 Cobalamin (Vitamin B12) [Mass/Vol] 607 pg/mL 180-914 [facility] 36on 01-11-2025 36 Pt states PCP cut [...] she is to hold. Verbalized understanding. Normal [facility] ECG 12 leadon 01-08-2025 Sinus Rhythm WITHIN NORMAL LIMITS [facility] ECG 12 leadOrdered By: Karen Skinner on 01-08-2025 [facility] [employer] Work Phone: Office Visiton 01-08-2025 Follow-up visit [id number] Veronica Umaña 1975 F Date Provider Department Center 01/08/2025 KATE WINN [facility] NE None Family History Problem Relation Age of Onset Hypertension Father Hypertension Brother Family Status - Relation Status Age at Father Brother Level of Service:81329 CO OFFICE/OUTPATIENT ESTABLISHED MOD MDM 30 MIN Reason for Visit and Comments: Follow-up [956989] Normal [facility] Progress Noteon 01-08-2025 Progress Note [facility] [place] [address] [place] [address] [address] [facility] [address] Dept: [phone] Dept Visit type: New : 1975 Reason [...] unless she is orthostatic, dizzy, syncopal. 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 She has episodes where she wakes up [...] met Dr. Godfrey 12/2024. Had treatment in [place]. Had trouble getting in to see cardiology so is here in [facility] for this. Had a lot of stressors [...] Had a primary care physician and a charter coordinator providing care but no longer doing so [...] Mostly for her back. Began seeing a charter coordinator who prescribed her ivermectin for inflammation and [...] HR elev 150 bpm. Went back to [place] ED. Took an EKG and test, and troponin. All of which were negative. Then 3rd visit to [place] ED. Feeling something's wrong. Repeated troponin, D-dimer. All tests were negative. Was rec for discharge. PCP added amlodipine. Blood pressure improving but not controlled. Anxiety treated with Klonopin. (more content not included)... Normal [facility] 36on 01-07-2025 36 Scheduled tomorrow a t 10 am Normal [facility] 36 I called and told Reginaldo bennett that Kate has openings this week. Veronica is agreeable if she can get a ride. She will talk to the office secretary to get an appointment. Normal [facility] 36 I spoke with Veronica when she [...] office note from the 12/10/24 visit. Normal [facility] Aldosterone, Serumon 025 ALDOSTERONE,S 33.3 ng/dL High 0.0-30.0 [facility] Comment on above: Order Comment: Test( s) 742720-Bwyll Activity, Plasmawas developed and its performance characteristicsdetermined by [facility]. It has not been cleared or approvedby the Food and Drug Administration. Result Comment: Perf ormed at: [facility] [id number] Industrial Tractor Driver: Dagoberto Moon MD, Phone: [phone] Performed By: #### L 1000100, [id number] #### [facility] [place], [address] Renin, Plasmaon 12-16-2024 RENIN, PLASMA 2.712 ng/mL/hr Normal 0.167-5.38 0 [facility] Comment on above: Order Comment: Test( s) 580713-Elswj Activity, Plasmawas developed and its performance characteristicsdetermined by [facility]. It has not been cleared or approvedby the Food and Drug Administration. Performed By: #### L 100.0100, L500.4050 #### [facility] [address] [place], [place], [address] L3410.9992on 12-11-2024 [facility] Misc. COMMENT Normal . [facility] Comment on above: Order Comment: 08675 6METANEPHRINES LAV PLAS Result Comment: Test Ordered: [id number] Metanephrines, Frac., Pl. Free Test(s) 528532-Azxtzjcsmeyivfs, Pl; 554926-Eihsyfyyymdo, Pl was developed and its performance characteristics determined by [facility]. It has not been cleared or approved by the Food and Drug Administration. Normetanephrine, Pl 72.0 pg/mL BN Reference Range: 0.0-244.0 Metanephrine, Pl 25.8 pg/mL Reference Range: 0.0-88.0 Performed at: - [facility] [id number] Industrial Tractor Driver: Dagoberto Moon MD, Phone: [phone] Performed at: [facility] [address] [id number] Industrial Tractor Driver: Kalpesh Thompson PhD, Phone: [phone] Performed By: #### L 100.0100, L500.4050 #### [facility] [address] [place], [place], [address] Surgical pathology reportOrd ered By: Kimi Montero on 12-11-2024 Surgical pathology study [facility] ECG 12 leadon 12-10-2024 Sinus Rhythm WITHIN NORMAL LIMITS [facility] Office Visiton 12-10-2024 Follow-up visit [id number] Veronica Umaña 1975 F Date Provider Department Center 12/10/2024 ISRA ROMERO [facility] NE None Family History Problem Relation Age of Onset Hypertension Father Hypertension Brother Family Status - Relation Status Age at Father Brother Level of Service:18619 CO OFFICE/OUTPATIENT NEW MODERATE MDM 45 MINUTES Reason for Visit and Comments: New Patient [542] Normal [facility] Progress Noteon 12-10-2024 Progress Note Etiology unclear. In setting of sleep disruption and uncontrolled Htn. -Stabilize BP mgt -F/u in cardiology office; if still having unexplained tachycardia then would ck EM. Normal [facility] Progress Note Dx'd about 10 yrs ag [...] EDS such as vEDS or kEDS. Normal [facility] Progress Note One time episode. Oc curred [...] predispose her to this; expectant mgt. Normal [facility] Progress Note Target BP 140/90, ca n [...] for atherosclerotic GUERRERO or fibromuscular dysplasia). Normal [facility] Progress Note [facility] - [place] [address] [facility] [address] [facility] [address] Dept: [phone] Dept Visit type: New : 1975 Reason [...] KATH. Subjective Referred; self. Had treatment in [place]. Had trouble getting in to see cardiology so is here in [facility] for this. Had a lot of stressors [...] Had a primary care physician and a charter coordinator providing care but no longer doing so [...] Mostly for her back. Began seeing a charter coordinator who prescribed her ivermectin for inflammation and [...] HR elev 150 bpm. Went back to [place] ED. Took an EKG and test, and troponin. All of which were negative. Then 3rd visit to [place] ED. Feeling something's wrong. Repeated troponin, D-dimer. [...] hypertensive he (more content not included)... Normal [facility] Immunohistochemical Stainson 12-05-2024 Immunohistochemical Stains Patient Age/Sex Location Account Attending Physician VERONICA UMAÑA 49/F OPUS [id number] Dr. Anay Lugo MD Specimen: [id number] Received: 12/05/24 Status: CARROLL Watt Num: [id number] Spec Type: BREAST BX Subm Dr: Dr. Anay Lugo MD HEADER OPERATION: Ultrasound guided breast biopsy [...] Formalin fixation time: 16 hours, 45 minutes LA 12/05/2024 CPT:14734u6,00958b9,66005e 2 Patient Age/Sex Location Account Attending Physician VERONICA UMAÑA 49/F RANDALUS [id number] Dr. Anay Lugo MD Signed (signature on file) Dr. Kimi Montero MD 12/11/24 1212 Normal [facility] Comment on above: Performed By: #### L 100.0100, L500.4050 #### [facility] [address] [facility] [place], [place], [id number] Operative Reporton 5 Operative Report [facility] Medical Records Department [address] [place] [address] Operative Report 12/05/24 1333 MR#: [id number] Acct: [id number] Name: VERONICA UMAÑA Rep #: [id number] : 1975 49 From: Anay Lugo MD PCP: Dr. Kala Solares MD Status:REG CL Location: OPUS Operative Report (Standard) Operative Information Date of Procedure: 12/05/24 Pre-Operative Diagnosis: Left breast mass x 2 Post-Operative Diagnosis: Same Surgery/Procedure Performed: Ultrasound-guided left breast biopsy x 2 accounts payable clerk: No Type of Anesthesia: Local Procedure Start [...] MD; Dr. Anay Lugo MD Signed Normal [facility] US Breast Biopsy 1st Lesiono n 12-05-2024 US Breast Biopsy 1st Lesion [facility] Imaging Services [address] [place] [address] US Breast Biopsy 1st Lesion MR#: [id number] Acct: [id number] Name: VERONICA UMAÑA Rep #: [id number] : 1975 F 49 From: Kamlesh chin MD PCP: Dr. Kala Solares MD Status: REG CLI Study: US Breast Biopsy 1st Lesion Date of Exam: 07/31 Exam# [id number] Ordering Dr: Veronica Gupta PROCEDURE: US BREAST [...] - NEED ADDITIONAL IMAGING EVALUATION. Reading Location: [place] [address] CC: JANNETH Gupta; Dr. Kala Solares MD Finance Business Manager: Signed Normal [facility] CTA Abdomen W/WO Contraston 12-04-2024 CTA Abdomen W/WO Contrast [facility] Imaging Services [address] [place] [address] CTA Abdomen W/WO Contrast MR#: [id number] Acct: [id number] Name: VERONICA UMAÑA Rep #: [id number] : 1975 F 49 From: Tommie Cote MD PCP: Dr. Kala Solares MD Status: REG CLI Study: CTA Abdomen W/WO Contrast Date of Exam: Exam# [id number] Ordering Dr: Kala Solares MD ADDENDUM by [...] vein, and right portal vein. Reading Location: [facility] 12/04/24 1623 Date cc: Dr. Kala Solares [...] lesion Enlarged likely fibroid uterus Reading Location: [facility] CC: Dr. Kala Solares MD Finance Business Manager: Signed Normal [facility] Plasma renin activityOrdered By: Kala Solares on 12-04-2024 Renin (P) [Catalytic activity/Vol] 2.712 ng/mL/hr 0.167-5.38 0 [facility] Surgery Visit Reporton 11-30 Surgery Visit Report [facility] [address] [place] [address] OFFICE VISIT Date of Service: 11/30/24 MR#: [id number] Acct: [id number] Name: VERONICA UMAÑA Rep #: [id number] : 1975 Provider: Dr. 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 Normal [facility] Coronary Angiography CTon Coronary Angiography CT [facility] Imaging Services [address] [place] [address] 11/27/24 1645 MR#: [id number] Acct: [id number] Name: VERONICA UMAÑA Rep #: [id number] : 1975 49 From: Dillon Florez MD [...] Florez MD; Dr. Kala Solares MD Signed [facility] Echo Completeon 11-27-2024 Echo [facility] Services [address] [place] [address] Echo Complete 11/27/24 0714 MR#: [id number] Acct: [id number] Name: VERONICA UMAÑA Rep #: [id number] : 1975 49 From: Dillon Florez MD Attending Dr: Dr. Kala Solares MD Status: REG [facility] Ordering Dr: Kala Solares MD Date: 11/27/24 Location: [facility] Sex: F C Admitted: Reason For [...] MD Date Dictated: 11/27/24713 Date Transcribed: 11/27/241040 Finance Business Manager: Signed Normal [facility] Echocardiogram study reportO rdered By: Dillon Florez on 11-27-2024 Study report [facility] Cardiovascular Services [address] [place] [address] Echo Complete 11/27/24713 MR#: [id number] Acct: [id number] Name: VERONICA UMAÑA Rep #:[id number] : 1975 49 From: Dillon Ferro Attending Dr: Dr. Kala Solares MD Status: REG CLI Ordering Dr: Kala Solares MD Date: 0 11/27/24 Location: [facility] Sex: F C Admitted: Reason For [...] Dictated: 11/27/24 07 Date Transcribed: 11/27/24 104 Finance Business Manager: Signed [facility] Work Phone: Limited Chest CT Cardiac Onl yon 11-27-[address] Cardiac Only [facility] Imaging Services [address] [place], [place] [id number] Limited Chest CT Cardiac Only MR#: [id number] Acct: [id number] Name: VERONICA UMAÑALATAMurphy Rep #: [id number] : 1975 F 49 From: Kamlesh chin MD PCP: Dr. Kala Solares MD Status: [facility] Study: Limited Chest CT Cardiac Only Date of Exam: Exam# [id number] Ordering Dr: Kala Solares MD PROCEDURE: LIMITED [...] significant coronary artery calcification seen. Reading Location: [id number] CC: Dr. Kala Solares MD Finance Business Manager: Signed Normal [facility] Breast Limited Unilateralon 11-26-2024 Breast Limited Unilateral [facility] Imaging Services [address] [place] [address] Breast Limited Unilateral MR#: [id number] Acct: [id number] Name: VERONICA UMAÑA Rep #: [id number] : 1975 F 49 From: Hanna Mann PCP: Dr. Kala Solares MD Status: REG CLI Study: Breast Limited Unilateral Date of Exam: Exam# [id number] Ordering Dr: Kala Solares MD PROCEDURE: BREAST [...] SUSPICIOUS ABNORMALITY. RECOMMENDATION: Biopsy Recommended Reading Location: [id number] CC: Dr. Kala Solares MD Finance Business Manager: Signed Normal [facility] Breast imaging reportOrdered By: Hanna Villalobos on 11-26-2024 Study report [facility] Imaging Services [address] [place] [address] DIAG MAMM W/CAD, BILAT MR#: [id number] Acct: [id number] Name: VERONICA UMAÑA Rep #: [id number] : 1975 F 49 From: Jose Angel Villalobos DO PCP: Dr. Kala Solares MD Status: REG CLI Study:DIAG MAMM W/CAD, BILAT Date of Exam: 11/26/24 Exam# [id number] Ordering Dr: Ahsan Solares MD EXAM: DIAG [...] be mailed to the patient. Reading Location: [facility] CC: Dr. Kala Solares MD ~ Finance Business Manager: Signed [facility] DIAG MAMM W/CAD, BILATon DIAG MAMM W/CAD, BILAT [facility] Imaging Services [address] [place], [place] [id number] DIAG MAMM W/CAD, BILAT MR#: [id number] Acct: [id number] Name: VERONICA UMAÑA Rep #: [id number] : 1975 F 49 From: Hanna Mann PCP: Dr. Kala Solares MD Status: [facility] Study: DIAG MAMM W/CAD, BILAT Date of Exam: 11/26/24 Exam# [id number] Ordering Dr: Kala Solares MD EXAM: DIAG [...] be mailed to the patient. Reading Location: [id number] CC: Dr. Kala Solares MD Finance Business Manager: Signed Normal [facility] 12 Lead EKGon 11-05-2024 12 Lead EKG [facility] Cardiovascular Services [address] [place] [address] 12 Lead EKG 11/05/24 1555 MR#: [id number] Acct: [id number] Name: VERONICA UMAÑA Rep #: [id number] : 1975 49 From: Brandy Meza MD [...] : 403 ms Sinus rhythm with short CO Otherwise normal ECG Confirmed by Brandy Meza ([id number]), editor school photograph VERONICA ESCOBAR ([id number]) on 11/06/2024 9:56:44 AM Referred By: Victor Hugo Suh Confirmed By: Brandy Meza 11/06/24 0956 Date Brandy Meza MD CC: Dr. Victor Hugo Suh, DO; No Primary Care Physician Signed Normal [facility] Absolute lymphocyte countOrd ered By: Victor Hugo Suh on 11-05-2024 Lymphocytes Auto (Unsp spec) [#/Vol] 1.60 10*3/uL 0.83-4.51 [facility] Absolute neutrophil countOrd ered By: Victor Hugo Suh on 11-05-2024 Neutrophils (Bld) [#/Vol] 4.3 10*3/uL 2.0-7.7 [facility] Anion gap in Serum or Plasma Ordered By: Victor Hugo Suh on 11-05-2024 Anion gap [Moles/Vol] 12 mmol/L 5-15 [facility] Automated lymphocyte count a s percentage of total leukocytesOrdered By: Victor Hugo Suh on 11-05-2024 Lymphocytes/100 WBC Auto (Unsp spec) 24.7 % 19-41 [facility] BUN/creatinine ratioOrdered By: Victor Hugo Suh on 11-05-2024 Urea nitrogen/Creatinine [Mass ratio] 23.7 mg/mg High 10- [facility] Basic Metabolic Profile (BMP )on 11-05-2024 BUN/CRE 23.7 RATIO High 03-25 [facility] Comment on above: Performed By: #### L 499.0042 #### [facility] [address] [place], [address] Calcium [Mass/Vol] 9.7 mg/dL Normal 7.6-11.0 [facility] Comment on above: Performed By: #### L 499.0042 #### [facility] [address] [place], [address] Chloride [Moles/Vol] 103 mmol/L Normal 98-108 [facility] Comment on above: Performed By: #### L 499.0042 #### [facility] [address] [place], [address] CO2 [Moles/Vol] 23.7 mmol/L Normal 21.0-32.0 [facility] Comment on above: Performed By: #### L 499.0042 #### [facility] [address] [place], [address] Creatinine [Mass/Vol] 0.69 mg/dL Low 0.70-1.20 [facility] Comment on above: Performed By: #### L 499.0042 #### [facility] [address] [place], [address] ECRCL 103.41 ml/min Normal 50-250 [facility] Comment on above: Performed By: #### L 499.0042 #### [facility] [address] [place], [address] GAP 12 Normal 5-15 [facility] Comment on above: Performed By: #### L 499.0042 #### [facility] [address] [place], [address] GFR/1.73 sq M.predicted among non-blacks MDRD (S/P/Bld) [Vol rate/Area] 105 mL/min/{1.73_m2} Normal >60 [facility] Comment on above: Result Comment: mL/m in/1.73m2 CKD-EPI Creatinine Equation (2020) Performed By: #### L 499.0042 #### [facility] [address] [place], [address] Glucose [Mass/Vol] 109 mg/dL High 70-99 [facility] Comment on above: Performed By: #### L 499.0042 #### [facility] [address] [place], [address] Potassium [Moles/Vol] 3.9 mmol/L Normal 3.3-5.1 [facility] Comment on above: Performed By: #### L 499.0042 #### [facility] [address] [place], [address] Sodium [Moles/Vol] 139 mmol/L Normal 133-145 [facility] Comment on above: Performed By: #### L 499.0042 #### [facility] [address] [place], [address] Urea nitrogen [Mass/Vol] 16 mg/dL Normal 4-19 [facility] Comment on above: Performed By: #### L 499.0042 #### [facility] [address] [place], [address] Basophil percentageOrdered B y: Victor Hugo Suh on 11-05-2024 Basophils/100 WBC (Bld) 0.8 % 0-1 [facility] CBC W/Diff, Automatedon Absolute Lymph 1.60 X10 3/uL Normal 0.83-4.51 [facility] Comment on above: Performed By: #### L 499.0042 #### [facility] [address] [place], [address] Absolute Neut 4.3 X10 3/uL Normal 2.0-7.7 [facility] Comment on above: Performed By: #### L 499.0042 #### [facility] [address] [place], [address] Basophils/100 WBC (Bld) 0.8 % Normal 0-1 [facility] Comment on above: Performed By: #### L 499.0042 #### [facility] [address], [address] Eosinophils/100 WBC (Bld) 0.5 % Normal 0-5 [facility] Comment on above: Performed By: #### L 499.0042 #### [facility] [address] [place], [address] Erythrocyte distribution width (RBC) [Ratio] 12.5 % Normal 11.6-14.6 [facility] Comment on above: Performed By: #### L 499.0042 #### [facility] [address] [place], [address] Hematocrit (Bld) [Volume fraction] 39.4 % Normal 37-47 [facility] Comment on above: Performed By: #### L 499.0042 #### [facility] [address] [place], [address] Hemoglobin (Bld) [Mass/Vol] 13.4 g/dL Normal 12.0-15.0 [facility] Comment on above: Performed By: #### L 499.0042 #### [facility] [address] [place], [address] IG% 0.500 Normal 0.0-0.9 [facility] Comment on above: Result Comment: IG% - Immature Granulocytes (promyelocytes, myelocytes and metamyelocytes) > 1% indicates that a LEFT SHIFT is Present. Performed By: #### L 499.0042 #### [facility] [address] [place], [address] Lymphocytes/100 WBC (Bld) 24.7 % Normal 19-41 [facility] Comment on above: Performed By: #### L 499.0042 #### [facility] [address] [place], [address] MCH (RBC) [Entitic mass] 31.9 pg Normal 27.0-32.0 [facility] Comment on above: Performed By: #### L 499.0042 #### [facility] [address] [place], [address] MCHC (RBC) [Mass/Vol] 34.0 g/dL Normal 32-36 [facility] Comment on above: Performed By: #### L 499.0042 #### [facility] [address] [place], [address] MCV (RBC) [Entitic vol] 93.8 fL Normal 81-99 [facility] Comment on above: Performed By: #### L 499.0042 #### [facility] [address] [place], [address] Monocytes/100 WBC (Bld) 7.7 % Normal 0-10 [facility] Comment on above: Performed By: #### L 499.0042 #### [facility] Laboratory [facility] [place], [address] Neutrophils/100 WBC (Bld) 65.8 % Normal 47-70 [facility] Comment on above: Performed By: #### L 499.0042 #### [facility] [address] [place], [address] Nucleated RBC (Bld) [#/Vol] 0 10*3/uL Normal 0-5 [facility] Comment on above: Performed By: #### L 499.0042 #### [facility] [address] [place], [address] Platelet mean volume (Bld) [Entitic vol] 9.9 fL Normal 6.2-12.0 [facility] Comment on above: Performed By: #### L 499.0042 #### [facility] [address] [place], [address] Platelets (Bld) [#/Vol] 290 10*3/uL Normal 150-450 [facility] Comment on above: Performed By: #### L 499.0042 #### [facility] [address] [place], [address] RBC (Bld) [#/Vol] 4.20 10*6/uL Normal 4.2-5.4 [facility] Comment on above: Performed By: #### L 499.0042 #### [facility] [address] [place], [address] RDW SD 42.7 fl Normal 35.1-43.9 [facility] Comment on above: Performed By: #### L 499.0042 #### [facility] [address] [place], [address] WBC (Bld) [#/Vol] 6.5 10*3/uL Normal 4.4-11.0 [facility] Comment on above: Performed By: #### L 499.0042 #### [facility] [address] [place], [address] Carbon dioxide, total [Moles /volume] in Central venous bloodOrdered By: Victor Hugo Suh on 11-05-2024 CO2 [Moles/Vol] 23.7 mmol/L 21.0-32.0 [facility] Chest PA and Lateralon 11-05 Chest PA and Lateral [facility] Imaging Services [address] [place], [place] [address] Chest PA and Lateral MR#: [id number] Acct: [id number] Name: VERONICA UMAÑA Rep #: [id number] : 1975 F 49 From: Bhanu Becker MD PCP: Care Physician,No Primary Status: [facility] ER Study: Chest PA and Lateral Date of Exam: 11/05/24 Exam# [id number] Ordering Dr: Victor Hugo Suh DO PROCEDURE: CHEST PA AND LATERAL 11/05/2024 REASON FOR EXAM: CHEST PAIN TECHNIQUE: Frontal and lateral views of the chest. COMPARISON: None FINDINGS: Hardware: None Heart: The heart size is normal. Mediastinum: The mediastinal contour is unremarkable. Lungs: The lungs are clear. Bones: The bones are unremarkable. RAD/Chest PA and Lateral IMPRESSION: No acute cardiopulmonary abnormality. Reading Location: [id number] CC: Dr. Victor Hugo Suh, DO; No Primary Care Physician Finance Business Manager: Signed Normal [facility] Chloride assayOrdered By: Luis Suh on 11-05-2024 Chloride [Moles/Vol] 103 mmol/L 98-108 [facility] D-Dimer Quantitative (DVT/PE )on 11-05-2024 D-DIMER QUANT < 0.27 Low 0.27-0.49 [facility] Comment on above: Result Comment: NORM AL D-Dimer level (<0.50) indicates no DVT or PE. Performed By: #### L 499.0042 #### [facility] [address] [facility] 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 Normal [facility] Eosinophil percentageOrdered By: Victor Hugo Suh on 11-05-2024 Eosinophils/100 WBC (Bld) 0.5 % 0-5 [facility] Erythrocyte distribution wid th ratioOrdered By: Victor Hugo Suh on 11-05-2024 Erythrocyte distribution width (RBC) [Ratio] 12.5 % 11.6-14.6 [facility] Erythrocyte distribution wid th standard deviationOrdered By: Victor Hugo Campoverde on 11-05-2024 Erythrocyte distribution width (RBC) [Ratio] 42.7 fl 35.1-43.9 [facility] Glomerular filtration rate ( GFR) estimation/1.73 sq m using serum, plasma, or whole bOrdered By: Victor Hugo Suh on 11-05-2024 GFR/1.73 sq M.predicted among non-blacks MDRD (S/P/Bld) [Vol rate/Area] 105 mL/min/{1.73_m2} >60 [facility] Comment on above: mL/min/1.73m2 CKD-EP I Creatinine Equation (2020) Hematocrit Auto (Bld) [Volum e fraction]Ordered By: Victor Hugo Suh on 11-05-2024 Hematocrit (Bld) [Volume fraction] 39.4 % 37-47 [facility] Hemoglobin measurementOrdere d By: Victor Hugo Vikash on 11-05-2024 Hemoglobin (Bld) [Mass/Vol] 13.4 g/dL 12.0-15.0 [facility] Immature granulocytes/100 WB C Auto (Bld)Ordered By: Victor Hugopeace Suh on 11-05-2024 Immature granulocytes/100 WBC (Bld) 0.500 % 0.0-0.9 [facility] Comment on above: IG% - Immature Granu locytes (promyelocytes, myelocytes and metamyelocytes) > 1% indicates that a LEFT SHIFT is Present. L499.0042on 11-05-2024 Trop T High Sen < 6 Normal <=14 [facility] Comment on above: Performed By: #### L 499.0042 #### [facility] [address] [facility] [place], [place], [address] L501.4021on 11-05-2024 Trop T High Sen < 6 Normal <=14 [facility] Comment on above: Performed By: #### L 499.0042 #### [facility] [address] [facility] [place], [place], [address] MCV (mean corpuscular volume ) determinationOrdered By: Victor Hugo Suh on 11-05-2024 MCV (RBC) [Entitic vol] 93.8 fL 81-99 [facility] Magnesiumon 11-05-2024 Magnesium [Mass/Vol] 2.3 mg/dL High 1.5-2.2 [facility] Comment on above: Performed By: #### L 499.0042 #### [facility] [address] [place], [address] Magnesium measurement (mass/ volume)Ordered By: Victor Hugo Suh on 11-05-2024 Magnesium (Unsp spec) [Mass/Vol] 2.3 mg/dL High 1.5-2.2 [facility] Mean corpuscular hemoglobin (MCH) determinationOrdered By: Victor Hugo Suh on 11-05-2024 MCH (RBC) [Entitic mass] 31.9 pg 27.0-32.0 [facility] Mean corpuscular hemoglobin concentration (MCHC) determinationOrdered By: Victor Hugo Suh on 11-05-2024 MCHC (RBC) [Mass/Vol] 34.0 g/dL 32-36 [facility] Mean platelet volume determi nationOrdered By: Victor Hugo Suh on 11-05-2024 Platelet mean volume (Bld) [Entitic vol] 9.9 fL 6.2-12.0 [facility] Monocyte percentageOrdered B y: Victor Hugo Suh on 11-05-2024 Monocytes/100 WBC (Bld) 7.7 % 0-10 [facility] Neutrophil percentageOrdered By: Victor Hugo Suh on 11-05-2024 Neutrophils/100 WBC (Bld) 65.8 % 47-70 [facility] Nucleated red blood cell per centageOrdered By: Victor Hugo Suh on 11-05-2024 Nucleated RBC/100 WBC (Bld) [Ratio] 0 % 0-5 [facility] Platelet countOrdered By: Luis Suh on 11-05-2024 Platelets (Bld) [#/Vol] 290 10*3/uL 150-450 [facility] [facility] Potassium measurement (mass/ volume)Ordered By: Victor Hugo Suh on 11-05-2024 Potassium (Unsp spec) [Mass/Vol] 3.9 mmol/L 3.3-5.1 [facility] RBC Auto (Bld) [#/Vol]Ordere d By: Victor Hugo Suh on 11-05-2024 RBC (Bld) [#/Vol] 4.20 10*6/uL 4.2-5.4 [facility] Serum creatinine measurement (mass/volume)Ordered By: Victor Hugo Suh on 11-05-2024 Creatinine [Mass/Vol] 0.69 mg/dL Low 0.70-1.20 [facility] Serum glucose measurement (m ass/volume)Ordered By: Victor Hugo Suh on 11-05-2024 Glucose [Mass/Vol] 109 mg/dL High 70-99 [facility] Serum or plasma calcium herberth urement (mass/volume)Ordered By: Victor Hugo Campoverde on 11-05-2024 Calcium [Mass/Vol] 9.7 mg/dL 7.6-11.0 [facility] Serum or plasma urea nitroge n measurement (mass/volume)Ordered By: Victor Hugo Suh on 11-05-2024 Urea nitrogen [Mass/Vol] 16 mg/dL 4-19 [facility] Sodium levelOrdered By: Chad Suh on 11-05-2024 Sodium [Moles/Vol] 139 mmol/L 133-145 [facility] TSH DL <= 0.005 mIU/L QnOrde red By: Victor Hugo Suh on 11-05-2024 TSH Qn 0.524 uIU/mL 0.300-4.20 0 [facility] Thyroid Stim Hormone (TSH)on 11-05-2024 TSH 0.524 uIU/mL Normal 0.300-4.20 0 [facility] Comment on above: Performed By: #### L 499.0042 #### [facility] [address] [place], [place], [id number] Troponin T.cardiac [Mass/vol ume] in Serum or Plasma by High sensitivity methodOrdered By: Victor Hugo Suh on 11-05-2024 Troponin T.cardiac High sensitivity method [Mass/Vol] < 6 ng/L <14 [facility] Troponin T.cardiac High sensitivity method [Mass/Vol] < 6 ng/L <14 [facility] Comment on above: Delta: 7 on 10/26/24 -623 White blood cell (WBC) count Ordered By: Victor Hugo Suh on 11-05-2024 WBC (Bld) [#/Vol] 6.5 10*3/uL 4.4-11.0 [facility] 12 Lead EKGon 10-31-2024 12 Lead EKG [facility] Cardiovascular Services [address] [place] [address] 12 Lead EKG 10/31/24 0753 MR#: [id number] Acct: [id number] Name: VERONICA UMAÑA Rep #: [id number] : 1975 49 From: Jennyfer Espinoza MD [...] Normal ECG Confirmed by JENNYFER ESPINOZA ([id number]), editor school photograph VERONICA ESCOBAR ([id number]) on 11/05/2024 8:05:56 AM Referred By: Confirmed By: JENNYFER ESPINOZA 11/05/24 0805 Date Jennyfer Espinoza MD CC: RAYRAY Aguilar; Dr. Jose Alexis MD Signed Normal [facility] Absolute lymphocyte countOrd ered By: Jose Alexis on 10-31-2024 Lymphocytes Auto (Unsp spec) [#/Vol] 1.57 10*3/uL 0.83-4.51 [facility] Absolute neutrophil countOrd ered By: Jose Alexis on 10-31-2024 Neutrophils (Bld) [#/Vol] 7.0 10*3/uL 2.0-7.7 [facility] Alcohol, Blood (Medical)-Ser umon 10-31-2024 SERUM ETOH < 10.1 Normal <=10.0 [facility] Comment on above: Result Comment: This test is for medical purposes only. The legal definition of intoxication varies according to local law. Performed By: #### L 100.0100, L500.4050 #### [facility] [address] [place], [place], [id number] Amphetamine detection with 1 000 ng/mL as cutoffOrdered By: Jose Alexis on 10-31-2024 Amphetamines Screen method >1000 ng/mL Ql (U) Negative < 200 ng/mL [facility] Anion gap in Serum or Plasma Ordered By: Jose Alexis on 10-31-2024 Anion gap [Moles/Vol] 12 mmol/L 5-15 [facility] Automated lymphocyte count a s percentage of total leukocytesOrdered By: Jose Alexis on 10-31-2024 Lymphocytes/100 WBC Auto (Unsp spec) 16.8 % Low 19-41 [facility] BUN/creatinine ratioOrdered By: Jose Alexis on 10-31-2024 Urea nitrogen/Creatinine [Mass ratio] 14.4 mg/mg 10-20 [facility] Basophil percentageOrdered B y: Jose Alexis on 10-31-2024 Basophils/100 WBC (Bld) 0.6 % 0-1 [facility] Bilirubin, totalOrdered By: Jose Alexis on 10-31-2024 Bilirubin [Mass/Vol] 0.86 mg/dL 0.00-1.30 [facility] CBC W/Diff, Automatedon 10-05 Absolute Lymph 1.57 X10 3/uL Normal 0.83-4.51 [facility] Comment on above: Performed By: #### L 100.0100, L500.4050 #### [facility] [address] [place], [address] Absolute Neut 7.0 X10 3/uL Normal 2.0-7.7 [facility] Comment on above: Performed By: #### L 100.0100, L500.4050 #### [facility] [address] [place], [address] Basophils/100 WBC (Bld) 0.6 % Normal 0-1 [facility] Comment on above: Performed By: #### L 100.0100, L500.4050 #### [facility] [address] [place], [address] Eosinophils/100 WBC (Bld) 0.1 % Normal 0-5 [facility] Comment on above: Performed By: #### L 100.0100, L500.4050 #### [facility] [address] [place], [address] Erythrocyte distribution width (RBC) [Ratio] 12.6 % Normal 11.6-14.6 [facility] Comment on above: Performed By: #### L 100.0100, L500.4050 #### [facility] [address] [place], [address] Hematocrit (Bld) [Volume fraction] 38.9 % Normal 37-47 [facility] Comment on above: Performed By: #### L 100.0100, L500.4050 #### [facility] [address] [place], [address] Hemoglobin (Bld) [Mass/Vol] 13.5 g/dL Normal 12.0-15.0 [facility] Comment on above: Performed By: #### L 100.0100, L500.4050 #### [facility] [address] [place], [address] IG% 0.500 Normal 0.0-0.9 [facility] Comment on above: Result Comment: IG% - Immature Granulocytes (promyelocytes, myelocytes and metamyelocytes) > 1% indicates that a LEFT SHIFT is Present. Performed By: #### L 100.0100, L500.4050 #### [facility] [address] [place], [address] Lymphocytes/100 WBC (Bld) 16.8 % Low 19-41 [facility] Comment on above: Performed By: #### L 100.0100, L500.4050 #### [facility] [address] [place], [address] MCH (RBC) [Entitic mass] 32.2 pg High 27.0-32.0 [facility] Comment on above: Performed By: #### L 100.0100, L500.4050 #### [facility] [address] [place], [address] MCHC (RBC) [Mass/Vol] 34.7 g/dL Normal 32-36 [facility] Comment on above: Performed By: #### L 100.0100, L500.4050 #### [facility] [address] [place], [address] MCV (RBC) [Entitic vol] 92.8 fL Normal 81-99 [facility] Comment on above: Performed By: #### L 100.0100, L500.4050 #### [facility] [address] [place], [address] Monocytes/100 WBC (Bld) 7.4 % Normal 0-10 [facility] Comment on above: Performed By: #### L 100.0100, L500.4050 #### [facility] [address] [place], [address] Neutrophils/100 WBC (Bld) 74.6 % High 47-70 [facility] Comment on above: Performed By: #### L 100.0100, L500.4050 #### [facility] [address] [place], [address] Nucleated RBC (Bld) [#/Vol] 0 10*3/uL Normal 0-5 [facility] Comment on above: Performed By: #### L 100.0100, L500.4050 #### [facility] [address] [place], [address] Platelet mean volume (Bld) [Entitic vol] 9.9 fL Normal 6.2-12.0 [facility] Comment on above: Performed By: #### L 100.0100, L500.4050 #### [facility] [address] [place], [address] Platelets (Bld) [#/Vol] 314 10*3/uL Normal 150-450 [facility] Comment on above: Performed By: #### L 100.0100, L500.4050 #### [facility] [address] [place], [address] RBC (Bld) [#/Vol] 4.19 10*6/uL Low 4.2-5.4 [facility] Comment on above: Performed By: #### L 100.0100, L500.4050 #### [facility] [address] [place], [address] RDW SD 42.2 fl Normal 35.1-43.9 [facility] Comment on above: Performed By: #### L 100.0100, L500.4050 #### [facility] [address] [place], [address] WBC (Bld) [#/Vol] 9.4 10*3/uL Normal 4.4-11.0 [facility] Comment on above: Performed By: #### L 100.0100, L500.4050 #### [facility] [address] [place], [address] Carbon dioxide, total [Moles /volume] in Central venous bloodOrdered By: Jose Alexis on 10-31-2024 CO2 [Moles/Vol] 23.6 mmol/L 21.0-32.0 [facility] Chloride assayOrdered By: Lex mleissa Linnetterajeev on 10-31-2024 Chloride [Moles/Vol] 101 mmol/L 98-108 [facility] Comprehensive Metabolic Prof ilon 10-31-2024 Albumin [Mass/Vol] 4.6 g/dL Normal 3.5-5.0 [facility] Comment on above: Performed By: #### L 100.0100, L500.4050 #### [facility] [address] [place], [address] Albumin/Globulin [Mass ratio] 1.8 {ratio} Normal 0.9-2.4 [facility] Comment on above: Performed By: #### L 100.0100, L500.4050 #### [facility] [address] [place], [address] ALK PHOS 65 U/L Normal 35-104 [facility] Comment on above: Performed By: #### L 100.0100, L500.4050 #### [facility] [address] [place], [address] ALT [Catalytic activity/Vol] 33 U/L Normal <=34 [facility] Comment on above: Performed By: #### L 100.0100, L500.4050 #### [facility] [address] [place], [address] AST [Catalytic activity/Vol] 22 U/L Normal <=31 [facility] Comment on above: Performed By: #### L 100.0100, L500.4050 #### [facility] [address] [place], [address] Bilirubin [Mass/Vol] 0.86 mg/dL Normal 0.00-1.30 [facility] Comment on above: Performed By: #### L 100.0100, L500.4050 #### [facility] [address] [place], [address] BUN/CRE 14.4 RATIO Normal 10-20 [facility] Comment on above: Performed By: #### L 100.0100, L500.4050 #### [facility] [address] [place], [address] Calcium [Mass/Vol] 9.7 mg/dL Normal 7.6-11.0 [facility] Comment on above: Performed By: #### L 100.0100, L500.4050 #### [facility] [address] [place], [address] Chloride [Moles/Vol] 101 mmol/L Normal 98-108 [facility] Comment on above: Performed By: #### L 100.0100, L500.4050 #### [facility] [address] [place], [address] CO2 [Moles/Vol] 23.6 mmol/L Normal 21.0-32.0 [facility] Comment on above: Performed By: #### L 100.0100, L500.4050 #### [facility] [address] [place], [address] Creatinine [Mass/Vol] 0.60 mg/dL Low 0.70-1.20 [facility] Comment on above: Performed By: #### L 100.0100, L500.4050 #### [facility] [address] [place], [address] ECRCL 116.86 ml/min Normal 50-250 [facility] Comment on above: Performed By: #### L 100.0100, L500.4050 #### [facility] [address] [place], [address] GAP 12 Normal 5-15 [facility] Comment on above: Performed By: #### L 100.0100, L500.4050 #### [facility] [address] [place], [address] GFR/1.73 sq M.predicted among non-blacks MDRD (S/P/Bld) [Vol rate/Area] 108 mL/min/{1.73_m2} Normal >60 [facility] Comment on above: Result Comment: mL/m in/1.73m2 CKD-EPI Creatinine Equation (2020) Performed By: #### L 100.0100, L500.4050 #### [facility] [address] [place], [address] Globulin (S) [Mass/Vol] 2.5 g/dL Normal 2.2-4.2 [facility] Comment on above: Performed By: #### L 100.0100, L500.4050 #### [facility] [address] [place], [address] Glucose [Mass/Vol] 133 mg/dL High 70-99 [facility] Comment on above: Performed By: #### L 100.0100, L500.4050 #### [facility] [address] [place], [address] Potassium [Moles/Vol] 3.8 mmol/L Normal 3.3-5.1 [facility] Comment on above: Performed By: #### L 100.0100, L500.4050 #### [facility] [address] [place], [address] Sodium [Moles/Vol] 137 mmol/L Normal 133-145 [facility] Comment on above: Performed By: #### L 100.0100, L500.4050 #### [facility] [address] [place], [address] T PROT 7.1 g/dL Normal 5.9-8.4 [facility] Comment on above: Performed By: #### L 100.0100, L500.4050 #### [facility] [address] [place], [address] Urea nitrogen [Mass/Vol] 9 mg/dL Normal 4-19 [facility] Comment on above: Performed By: #### L 100.0100, L500.4050 #### [facility] [address] [place], [address] Emergency Department Summary on 10-31-2024 Emergency Department Summary [facility] Medical Records Department [address] [place] [address] Emergency Department Summary 10/31/24 MR#: [id number] Acct: [id number] Name: VERONICA UMAÑA Rep #: [id number] : 1975 49 From: Jose Alexis MD [...] 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 Normal [facility] Eosinophil percentageOrdered By: Jose Alexis on 10-31-2024 Eosinophils/100 WBC (Bld) 0.1 % 0-5 [facility] Erythrocyte distribution wid th ratioOrdered By: Jose Alexis on 10-31-2024 Erythrocyte distribution width (RBC) [Ratio] 12.6 % 11.6-14.6 [facility] Erythrocyte distribution wid th standard deviationOrdered By: Jose Alexis on 10-31-2024 Erythrocyte distribution width (RBC) [Ratio] 42.2 fl 35.1-43.9 [facility] Glomerular filtration rate ( GFR) estimation/1.73 sq m using serum, plasma, or whole bOrdered By: Jose Alexis on 10-31-2024 GFR/1.73 sq M.predicted among non-blacks MDRD (S/P/Bld) [Vol rate/Area] 108 mL/min/{1.73_m2} >60 [facility] Comment on above: mL/min/1.73m2 CKD-EP I Creatinine Equation (2020) Hematocrit Auto (Bld) [Volum e fraction]Ordered By: Jose Alexis on 10-31-2024 Hematocrit (Bld) [Volume fraction] 38.9 % 37-47 [facility] Hemoglobin measurementOrdere d By: Jose Alexis on 10-31-2024 Hemoglobin (Bld) [Mass/Vol] 13.5 g/dL 12.0-15.0 [facility] Immature granulocytes/100 WB C Auto (Bld)Ordered By: Jose Alexis on 10-31-2024 Immature granulocytes/100 WBC (Bld) 0.500 % 0.0-0.9 [facility] Comment on above: IG% - Immature Granu locytes (promyelocytes, myelocytes and metamyelocytes) > 1% indicates that a LEFT SHIFT is Present. Laboratory - Chemistry and C hemistry - challengeOrdered By: Jose Alexis on 10-31-2024 AST [Catalytic activity/Vol] 22 U/L <32 [facility] MCV (mean corpuscular volume ) determinationOrdered By: Jose Alexis on 10-31-2024 MCV (RBC) [Entitic vol] 92.8 fL 81-99 [facility] Mean corpuscular hemoglobin (MCH) determinationOrdered By: Jose Alexis on 10-31-2024 MCH (RBC) [Entitic mass] 32.2 pg High 27.0-32.0 [facility] Mean corpuscular hemoglobin concentration (MCHC) determinationOrdered By: Jose Alexis on 10-31-2024 MCHC (RBC) [Mass/Vol] 34.7 g/dL 32-36 [facility] Mean platelet volume determi nationOrdered By: Jose Alexis on 10-31-2024 Platelet mean volume (Bld) [Entitic vol] 9.9 fL 6.2-12.0 [facility] Monocyte percentageOrdered B y: Jose Alexis on 10-31-2024 Monocytes/100 WBC (Bld) 7.4 % 0-10 [facility] Neutrophil percentageOrdered By: Jose Alexis on 10-31-2024 Neutrophils/100 WBC (Bld) 74.6 % High 47-70 [facility] No Panel InformationOrdered By: Jose Alexis on 10-31-2024 Urine Buprenorphine Qualitative Negative < 200 ng/mL [facility] Urine Oxycodone Screen Negative < 100 ng/mL [facility] Nucleated red blood cell per centageOrdered By: Jose Alexis on 10-31-2024 Nucleated RBC/100 WBC (Bld) [Ratio] 0 % 0-5 [facility] Platelet countOrdered By: Lex Alexis on 10-31-2024 Platelets (Bld) [#/Vol] 314 10*3/uL 150-450 [facility] Potassium measurement (mass/ volume)Ordered By: Jose Alexis on 10-31-2024 Potassium (Unsp spec) [Mass/Vol] 3.8 mmol/L 3.3-5.1 [facility] ,Serum,hCG Quali.on 10-31-2024 HCG, SERUM QUAL Negative Normal [facility] Comment on above: Performed By: #### L 100.0100, L500.4050 #### [facility] [address] [place], [address] Quantitative urine opiates m easurementOrdered By: Jose Alexis on 10-31-2024 Opiates Ql (U) Negative < 300 ng/mL [facility] RBC Auto (Bld) [#/Vol]Ordere d By: Jose Alexis on 10-31-2024 RBC (Bld) [#/Vol] 4.19 10*6/uL Low 4.2-5.4 [facility] Screening urine fentanyl kristine surementOrdered By: Jose Alexis on 10-31-2024 fentaNYL Screen Ql (U) Negative [facility] Serum beta-hCG test, qualita tiveOrdered By: Jose Alexis on 10-31-2024 Beta HCG ( test) Ql Negative [facility] Serum creatinine measurement (mass/volume)Ordered By: Jose Alexis on 10-31-2024 Creatinine [Mass/Vol] 0.60 mg/dL Low 0.70-1.20 [facility] Serum globulin measurementOr dered By: Jose Alexis on 10-31-2024 Globulin (S) [Mass/Vol] 2.5 g/dL 2.2-4.2 [facility] Serum glucose measurement (m ass/volume)Ordered By: Jose Alexis on 10-31-2024 Glucose [Mass/Vol] 133 mg/dL High 70-99 [facility] Serum or plasma alanine kirk otransferase (ALT) measurementOrdered By: Jose Alexis on 10-31-2024 ALT [Catalytic activity/Vol] 33 U/L <35 [facility] Serum or plasma albumin herberth urement (mass/volume)Ordered By: Jose Alexis on 10-31-2024 Albumin [Mass/Vol] 4.6 g/dL 3.5-5.0 [facility] Serum or plasma albumin/glob ulin mass ratioOrdered By: Jose Alexis on 10-31-2024 Albumin/Globulin [Mass ratio] 1.8 {ratio} 0.9-2.4 [facility] Serum or plasma alkaline joseph sphatase measurementOrdered By: Jose Alexis on 10-31-2024 ALP [Catalytic activity/Vol] 65 U/L 35-104 [facility] Serum or plasma calcium herberth urement (mass/volume)Ordered By: Jose Alexis on 10-31-2024 Calcium [Mass/Vol] 9.7 mg/dL 7.6-11.0 [facility] Serum or plasma ethanol herberth urement (mass/volume)Ordered By: Jose Alexis on 10-31-2024 Ethanol [Mass/Vol] mg/dL <10.1 [facility] Comment on above: This test is for med ical purposes only. The legal definition of intoxication varies according to local law. Serum or plasma urea nitroge n measurement (mass/volume)Ordered By: Jose Alexis on 10-31-2024 Urea nitrogen [Mass/Vol] 9 mg/dL 4-19 [facility] Sodium levelOrdered By: Jose Alexis on 10-31-2024 Sodium [Moles/Vol] 137 mmol/L 133-145 [facility] Total proteinOrdered By: Lauren Alexis on 10-31-2024 Protein [Mass/Vol] 7.1 g/dL 5.9-8.4 [facility] Urine Drug Screen (VISTA)on 10-31-2024 AMPHETAMINES Negative Normal <1000 ng/mL [facility] Comment on above: Performed By: #### L 100.0100, L500.4050 #### [facility] [place], [address] BARBITIURATES Negative Normal < 200 ng/mL [facility] Comment on above: Performed By: #### L 100.0100, L500.4050 #### [facility] [address] [place], [address] BENZODIAZIPINE Negative Normal < 200 ng/mL [facility] Comment on above: Performed By: #### L 100.0100, L500.4050 #### [facility] [address] [place], [address] BUP Ur Drug Scr Negative Normal < 200 ng/mL [facility] Comment on above: Performed By: #### L 100.0100, L500.4050 #### [facility] [address] [place], [address] COCAINE Negative Normal < 300 ng/mL [facility] Comment on above: Performed By: #### L 100.0100, L500.4050 #### [facility] [address] [place], [address] Fentanyl Negative Normal [facility] Comment on above: Performed By: #### L 100.0100, L500.4050 #### [facility] [address] [place], [address] METHADONE Negative Normal < 300 ng/mL [facility] Comment on above: Performed By: #### L 100.0100, L500.4050 #### [facility] [address] [place], [address] OPIATES Negative Normal < 300 ng/mL [facility] Comment on above: Performed By: #### L 100.0100, L500.4050 #### [facility] [address] [place], [address] OXYCODONE Negative Normal < 100 ng/mL [facility] Comment on above: Performed By: #### L 100.0100, L500.4050 #### [facility] [address] [place], [address] PCP Negative Normal < 25 ng/mL [facility] Comment on above: Performed By: #### L 100.0100, L500.4050 #### [facility] [address] [place], [address] THC Negative Normal < 50 ng/mL [facility] Comment on above: Performed By: #### L 100.0100, L500.4050 #### [facility] [address] [place], [address] Urine benzodiazepine levelOr dered By: Jose Alexis on 10-31-2024 Benzodiazepines Ql (U) Negative < 200 ng/mL [facility] Urine cocaine levelOrdered B y: Jose Alexis on 10-31-2024 Cocaine Ql (U) Negative < 300 ng/mL [facility] Urine mjqhj-7-efhwmxertpuayp abinol (THC) measurementOrdered By: Jose Alexis on 10-31-2024 Cannabinoids Screen Ql (U) Negative < 50 ng/mL [facility] Urine phencyclidine (PCP) de tectionOrdered By: Jose Alexis on 10-31-2024 Phencyclidine Ql (U) Negative < 25 ng/mL [facility] White blood cell (WBC) count Ordered By: Jose Alexis on 10-31-2024 WBC (Bld) [#/Vol] 9.4 10*3/uL 4.4-11.0 [facility] 12 Lead EKGon 10-26-2024 12 Lead EKG [facility] Cardiovascular Services [address] [place] [address] 12 Lead EKG 10/26/24 0624 MR#: [id number] Acct: [id number] Name: VERONICA UMAÑA Rep #: [id number] : 1975 49 From: Dillon Florez MD [...] Normal ECG Confirmed by LILIA COLLINS, DILLON ([id number]), editor school photograph VERONICA ESCOBAR ([id number]) on 10/30/2024 6:59:46 AM Referred By: Confirmed By: DILLON FLOREZ MD 10/30/24 0659 Date Dillon Florez MD CC: [employer]IST-Zeke Aguilar; Dr. Ramesh Coffey, DO Signed Normal [facility] Absolute lymphocyte countOrd ered By: Ramesh Coffey on 10-26-2024 Lymphocytes Auto (Unsp spec) [#/Vol] 1.51 10*3/uL 0.83-4.51 [facility] Absolute neutrophil countOrd ered By: Ramesh Coffey on 10-26-2024 Neutrophils (Bld) [#/Vol] 5.4 10*3/uL 2.0-7.7 [facility] Anion gap in Serum or Plasma Ordered By: Ramesh Coffey on 10-26-2024 Anion gap [Moles/Vol] 14 mmol/L 5-15 [facility] Automated lymphocyte count a s percentage of total leukocytesOrdered By: Ramesh Coffey on 10-26-2024 Lymphocytes/100 WBC Auto (Unsp spec) 19.7 % 19-41 [facility] BUN/creatinine ratioOrdered By: Ramesh Coffey on 10-26-2024 Urea nitrogen/Creatinine [Mass ratio] 12.6 mg/mg 10-20 [facility] Basophil percentageOrdered B y: Ramesh Coffey on 10-26-2024 Basophils/100 WBC (Bld) 0.5 % 0-1 [facility] Bilirubin Test strip Ql (U)O rdered By: Ramesh Coffey on 10-26-2024 Bilirubin Ql (U) Negative Negative [facility] Bilirubin, totalOrdered By: Ramesh Coffey on 10-26-2024 Bilirubin [Mass/Vol] 0.86 mg/dL 0.00-1.30 [facility] CBC W/Diff, Automatedon 10-05 Absolute Lymph 1.51 X10 3/uL Normal 0.83-4.51 [facility] Comment on above: Performed By: #### L 100.0100, L500.4050 #### [facility] [address] [place], [address] Absolute Neut 5.4 X10 3/uL Normal 2.0-7.7 [facility] Comment on above: Performed By: #### L 100.0100, L500.4050 #### [facility] [address] [place], [address] Basophils/100 WBC (Bld) 0.5 % Normal 0-1 [facility] Comment on above: Performed By: #### L 100.0100, L500.4050 #### [facility] [address] [place], [address] Eosinophils/100 WBC (Bld) 0.3 % Normal 0-5 [facility] Comment on above: Performed By: #### L 100.0100, L500.4050 #### [facility] [address] [place], [address] Erythrocyte distribution width (RBC) [Ratio] 12.2 % Normal 11.6-14.6 [facility] Comment on above: Performed By: #### L 100.0100, L500.4050 #### [facility] [address] [place], [address] Hematocrit (Bld) [Volume fraction] 37.3 % Normal 37-47 [facility] Comment on above: Performed By: #### L 100.0100, L500.4050 #### [facility] [address] [place], [address] Hemoglobin (Bld) [Mass/Vol] 13.0 g/dL Normal 12.0-15.0 [facility] Comment on above: Performed By: #### L 100.0100, L500.4050 #### [facility] [address] [place], [address] IG% 0.500 Normal 0.0-0.9 [facility] Comment on above: Result Comment: IG% - Immature Granulocytes (promyelocytes, myelocytes and metamyelocytes) > 1% indicates that a LEFT SHIFT is Present. Performed By: #### L 100.0100, L500.4050 #### [facility] [address] [place], [address] Lymphocytes/100 WBC (Bld) 19.7 % Normal 19-41 [facility] Comment on above: Performed By: #### L 100.0100, L500.4050 #### [facility] [address] [place], [address] MCH (RBC) [Entitic mass] 32.2 pg High 27.0-32.0 [facility] Comment on above: Performed By: #### L 100.0100, L500.4050 #### [facility] [address] [place], [address] MCHC (RBC) [Mass/Vol] 34.9 g/dL Normal 32-36 [facility] Comment on above: Performed By: #### L 100.0100, L500.4050 #### [facility] [address] [place], [address] MCV (RBC) [Entitic vol] 92.3 fL Normal 81-99 [facility] Comment on above: Performed By: #### L 100.0100, L500.4050 #### [facility] [address] [place], [address] Monocytes/100 WBC (Bld) 8.5 % Normal 0-10 [facility] Comment on above: Performed By: #### L 100.0100, L500.4050 #### [facility] [address] [place], [address] Neutrophils/100 WBC (Bld) 70.5 % High 47-70 [facility] Comment on above: Performed By: #### L 100.0100, L500.4050 #### [facility] [address] [place], [address] Nucleated RBC (Bld) [#/Vol] 0 10*3/uL Normal 0-5 [facility] Comment on above: Performed By: #### L 100.0100, L500.4050 #### [facility] [address] [place], [address] Platelet mean volume (Bld) [Entitic vol] 9.6 fL Normal 6.2-12.0 [facility] Comment on above: Performed By: #### L 100.0100, L500.4050 #### [facility] [address] [place], [address] Platelets (Bld) [#/Vol] 302 10*3/uL Normal 150-450 [facility] Comment on above: Performed By: #### L 100.0100, L500.4050 #### [facility] [address] [place], [address] RBC (Bld) [#/Vol] 4.04 10*6/uL Low 4.2-5.4 [facility] Comment on above: Performed By: #### L 100.0100, L500.4050 #### [facility] [address] [place], [address] RDW SD 41.5 fl Normal 35.1-43.9 [facility] Comment on above: Performed By: #### L 100.0100, L500.4050 #### [facility] [address] [place], [address] WBC (Bld) [#/Vol] 7.7 10*3/uL Normal 4.4-11.0 [facility] Comment on above: Performed By: #### L 100.0100, L500.4050 #### [facility] [address] [place], [address] Carbon dioxide, total [Moles /volume] in Central venous bloodOrdered By: Ramesh Coffey on 10-26-2024 CO2 [Moles/Vol] 22.4 mmol/L 21.0-32.0 [facility] Chloride assayOrdered By: Ron Coffey on 10-26-2024 Chloride [Moles/Vol] 103 mmol/L 98-108 [facility] Comprehensive Metabolic Prof ilon 10-26-2024 Albumin [Mass/Vol] 4.6 g/dL Normal 3.5-5.0 [facility] Comment on above: Performed By: #### L 100.0100, L500.4050 #### [facility] [address] [place], [address] Albumin/Globulin [Mass ratio] 1.6 {ratio} Normal 0.9-2.4 [facility] Comment on above: Performed By: #### L 100.0100, L500.4050 #### [facility] [address] [place], [address] ALK PHOS 68 U/L Normal 35-104 [facility] Comment on above: Performed By: #### L 100.0100, L500.4050 #### [facility] [address] [place], [address] ALT [Catalytic activity/Vol] 49 U/L High <=34 [facility] Comment on above: Performed By: #### L 100.0100, L500.4050 #### [facility] [address] [place], [address] AST [Catalytic activity/Vol] 36 U/L High <=31 [facility] Comment on above: Performed By: #### L 100.0100, L500.4050 #### [facility] [address] [place], [address] Bilirubin [Mass/Vol] 0.86 mg/dL Normal 0.00-1.30 [facility] Comment on above: Performed By: #### L 100.0100, L500.4050 #### [facility] [address] [place], [address] BUN/CRE 12.6 RATIO Normal 10-20 [facility] Comment on above: Performed By: #### L 100.0100, L500.4050 #### [facility] [address] [place], [address] Calcium [Mass/Vol] 9.7 mg/dL Normal 7.6-11.0 [facility] Comment on above: Performed By: #### L 100.0100, L500.4050 #### [facility] [address] [place], [address] Chloride [Moles/Vol] 103 mmol/L Normal 98-108 [facility] Comment on above: Performed By: #### L 100.0100, L500.4050 #### [facility] [address] [place], [address] CO2 [Moles/Vol] 22.4 mmol/L Normal 21.0-32.0 [facility] Comment on above: Performed By: #### L 100.0100, L500.4050 #### [facility] [address] [place], [address] Creatinine [Mass/Vol] 0.70 mg/dL Normal 0.70-1.20 [facility] Comment on above: Performed By: #### L 100.0100, L500.4050 #### [facility] [address] [place], [address] ECRCL 102.34 ml/min Normal 50-250 [facility] Comment on above: Performed By: #### L 100.0100, L500.4050 #### [facility] [address] [place], [address] GAP 14 Normal 5-15 [facility] Comment on above: Performed By: #### L 100.0100, L500.4050 #### [facility] [address] [place], [address] GFR/1.73 sq M.predicted among non-blacks MDRD (S/P/Bld) [Vol rate/Area] 105 mL/min/{1.73_m2} Normal >60 [facility] Comment on above: Result Comment: mL/m in/1.73m2 CKD-EPI Creatinine Equation (2020) Performed By: #### L 100.0100, L500.4050 #### [facility] [address] [place], [address] Globulin (S) [Mass/Vol] 2.8 g/dL Normal 2.2-4.2 [facility] Comment on above: Performed By: #### L 100.0100, L500.4050 #### [facility] [address] [place], [address] Glucose [Mass/Vol] 123 mg/dL High 70-99 [facility] Comment on above: Performed By: #### L 100.0100, L500.4050 #### [facility] [address] [place], [address] Potassium [Moles/Vol] 4.1 mmol/L Normal 3.3-5.1 [facility] Comment on above: Performed By: #### L 100.0100, L500.4050 #### [facility] [address] [place], [address] Sodium [Moles/Vol] 139 mmol/L Normal 133-145 [facility] Comment on above: Performed By: #### L 100.0100, L500.4050 #### [facility] [address] [place], [address] T PROT 7.4 g/dL Normal 5.9-8.4 [facility] Comment on above: Performed By: #### L 100.0100, L500.4050 #### [facility] [address] [place], [address] Urea nitrogen [Mass/Vol] 9 mg/dL Normal 4-19 [facility] Comment on above: Performed By: #### L 100.0100, L500.4050 #### [facility] [address] [place], [address] Emergency Department Summary on 10-26-2024 Emergency Department Summary [facility] Medical Records Department [address] [place] [address] Emergency Department Summary 10/26/24 MR#: [id number] Acct: [id number] Name: VERONICA UMAÑA Rep #: [id number] : 1975 49 From: Ramesh Coffey DO [...] 10/26/24 0837 Cosigner Signature (if applicable): cc: [employer]ISS[employer] SPECIALISTIanC Elinor Aguilar * Signed ADDENDUM by Dr. [...] concerned that she was having allergic reaction. [facility] Medical History Fear of travel with [...] 08:42 S (more content not included)... Normal [facility] Eosinophil percentageOrdered By: Ramesh Coffey on 10-26-2024 Eosinophils/100 WBC (Bld) 0.3 % 0-5 [facility] Erythrocyte distribution wid th ratioOrdered By: Ramesh Coffey on 10-26-2024 Erythrocyte distribution width (RBC) [Ratio] 12.2 % 11.6-14.6 [facility] Erythrocyte distribution wid th standard deviationOrdered By: Ramesh Coffey on 10-26-2024 Erythrocyte distribution width (RBC) [Ratio] 41.5 fl 35.1-43.9 [facility] Glomerular filtration rate ( GFR) estimation/1.73 sq m using serum, plasma, or whole bOrdered By: Ramesh Coffey on 10-26-2024 GFR/1.73 sq M.predicted among non-blacks MDRD (S/P/Bld) [Vol rate/Area] 105 mL/min/{1.73_m2} >60 [facility] Comment on above: mL/min/1.73m2 CKD-EP I Creatinine Equation (2020) Hematocrit Auto (Bld) [Volum e fraction]Ordered By: Ramesh Coffey on 10-26-2024 Hematocrit (Bld) [Volume fraction] 37.3 % 37-47 [facility] Hemoglobin measurementOrdere d By: Ramesh Coffey on 10-26-2024 Hemoglobin (Bld) [Mass/Vol] 13.0 g/dL 12.0-15.0 [facility] Immature granulocytes/100 WB C Auto (Bld)Ordered By: Ramesh Coffey on 10-26-2024 Immature granulocytes/100 WBC (Bld) 0.500 % 0.0-0.9 [facility] Comment on above: IG% - Immature Granu locytes (promyelocytes, myelocytes and metamyelocytes) > 1% indicates that a LEFT SHIFT is Present. Ketones Test strip Ql (U)Ord ered By: Ramesh Coffey on 10-26-2024 Ketones Ql (U) 15 mg/dl High Negative [facility] L499.0042on 10-26-2024 Trop T High Sen Normal <=14 [facility] Comment on above: Result Comment: Kimberlee franklin via OM: Ordered Performed By: #### L 100.0100, L500.4050 #### [facility] [address] [place], [address] L499.0043on 10-26-2024 Trop T High Sen Normal <=14 [facility] Comment on above: Result Comment: Canc noemi via OM: Ordered Performed By: #### L 499.0043 #### [facility] [address] [place], [address] L501.4021on 10-26-2024 Trop T High Sen 7 ng/L Normal <=14 [facility] Comment on above: Performed By: #### L 100.0100, L500.4050 #### [facility] [address] [place], [place], [address] Laboratory - Chemistry and C hemistry - challengeOrdered By: Ramesh Coffey on 10-26-2024 AST [Catalytic activity/Vol] 36 U/L High <32 [facility] Lipaseon 10-26-2024 Lipase [Catalytic activity/Vol] 28 U/L Normal 13-75 [facility] Comment on above: Result Comment: Cynthia palacios note: LIPASE revised reference range effective 22. New Lipase methodology. Expected to produce lower values than the previous assay method. NEW Reference Range: 13 - 75 U/L Performed By: #### L 100.0100, L500.4050 #### [facility] [address] [place], [address] Lipase measurementOrdered By : Ramesh Coffey on 10-26-2024 Lipase [Catalytic activity/Vol] 28 U/L 13-75 [facility] Comment on above: Please note:LIPASE r evised reference range effective 22. New Lipase methodology. Expected to produce lower values than the previous assay method. NEW Reference Range: 13 - 75 U/L MCV (mean corpuscular volume ) determinationOrdered By: Ramesh Coffey on 10-26-2024 MCV (RBC) [Entitic vol] 92.3 fL 81-99 [facility] Mean corpuscular hemoglobin (MCH) determinationOrdered By: Ramesh Coffey on 10-26-2024 MCH (RBC) [Entitic mass] 32.2 pg High 27.0-32.0 [facility] Mean corpuscular hemoglobin concentration (MCHC) determinationOrdered By: Ramesh Coffey on 10-26-2024 MCHC (RBC) [Mass/Vol] 34.9 g/dL 32-36 [facility] Mean platelet volume determi nationOrdered By: Ramesh Coffey on 10-26-2024 Platelet mean volume (Bld) [Entitic vol] 9.6 fL 6.2-12.0 [facility] Microscopic analysis of urin e for red blood cells (RBC)Ordered By: Ramesh Coffey on 10-26-2024 Microscopic analysis of urine for red blood cells (RBC) 0 SEEN /hpf 0-5 [facility] Monocyte percentageOrdered B y: Ramesh Coffey on 10-26-2024 Monocytes/100 WBC (Bld) 8.5 % 0-10 [facility] Mucus LM Ql (Urine sed)Order ed By: Ramesh Coffey on 10-26-2024 Mucus Ql (Urine sed) 0 SEEN /hpf [facility] Neutrophil percentageOrdered By: Ramesh Coffey on 10-26-2024 Neutrophils/100 WBC (Bld) 70.5 % High 47-70 [facility] Nitrite Test strip Ql (U)Ord ered By: Ramesh Coffey on 10-26-2024 Nitrite Ql (U) Negative Negative [facility] Nucleated red blood cell per centageOrdered By: Ramesh Coffey on 10-26-2024 Nucleated RBC/100 WBC (Bld) [Ratio] 0 % 0-5 [facility] Platelet countOrdered By: Ron Coffey on 10-26-2024 Platelets (Bld) [#/Vol] 302 10*3/uL 150-450 [facility] Potassium measurement (mass/ volume)Ordered By: Ramesh Coffey on 10-26-2024 Potassium (Unsp spec) [Mass/Vol] 4.1 mmol/L 3.3-5.1 [facility] Protein Test strip Ql (U)Ord ered By: Ramesh Coffey on 10-26-2024 Protein Ql (U) Negative Negative [facility] RBC Auto (Bld) [#/Vol]Ordere d By: Ramesh Coffey on 10-26-2024 RBC (Bld) [#/Vol] 4.04 10*6/uL Low 4.2-5.4 [facility] Serum creatinine measurement (mass/volume)Ordered By: Ramesh Coffey on 10-26-2024 Creatinine [Mass/Vol] 0.70 mg/dL 0.70-1.20 [facility] Serum globulin measurementOr dered By: Ramesh Coffey on 10-26-2024 Globulin (S) [Mass/Vol] 2.8 g/dL 2.2-4.2 [facility] Serum glucose measurement (m ass/volume)Ordered By: Ramesh Coffey on 05-23-2025 Glucose [Mass/Vol] 123 mg/dL High 70-99 [facility] Serum or plasma alanine kirk otransferase (ALT) measurementOrdered By: Ramesh Coffey on 10-26-2024 ALT [Catalytic activity/Vol] 49 U/L High <35 [facility] Serum or plasma albumin herberth urement (mass/volume)Ordered By: Ramesh Coffey on 10-26-2024 Albumin [Mass/Vol] 4.6 g/dL 3.5-5.0 [facility] Serum or plasma albumin/glob ulin mass ratioOrdered By: Ramesh Coffey on 10-26-2024 Albumin/Globulin [Mass ratio] 1.6 {ratio} 0.9-2.4 [facility] Serum or plasma alkaline joseph sphatase measurementOrdered By: Ramesh Coffey on 10-26-2024 ALP [Catalytic activity/Vol] 68 U/L 35-104 [facility] Serum or plasma calcium herberth urement (mass/volume)Ordered By: Ramesh Coffey on 10-26-2024 Calcium [Mass/Vol] 9.7 mg/dL 7.6-11.0 [facility] Serum or plasma urea nitroge n measurement (mass/volume)Ordered By: Ramesh Coffey on 10-26-2024 Urea nitrogen [Mass/Vol] 9 mg/dL 4-19 [facility] Sodium levelOrdered By: Dinesh Coffey on 10-26-2024 Sodium [Moles/Vol] 139 mmol/L 133-145 [facility] Squamous epithelial cells de tection in urine sediment by light microscopyOrdered By: Ramesh Coffey on 10-26-2024 Epithelial cells.squamous LM Ql (Urine sed) 5-10 SEEN /hpf 5-10 [facility] Total proteinOrdered By: Franklin Coffey on 10-26-2024 Protein [Mass/Vol] 7.4 g/dL 5.9-8.4 [facility] Troponin T.cardiac [Mass/vol ume] in Serum or Plasma by High sensitivity methodOrdered By: Ramesh Coffey on 10-26-2024 Troponin T.cardiac High sensitivity method [Mass/Vol] 7 ng/L <14 [facility] Urinalysis, Completeon 10-26 BACTERIA 2+ /hpf Normal None Seen [facility] Comment on above: Order Comment: CLEAN CATCH Performed By: #### L 400.0001 #### [facility] [address] [place], [address] EPI,SQUAMOUS 5-10 SEEN Normal 5-10 [facility] Comment on above: Order Comment: CLEAN CATCH Performed By: #### L 400.0001 #### [facility] [address] [place], [address] WBC 0-5 SEEN Normal 0-5 [facility] Comment on above: Order Comment: CLEAN CATCH Performed By: #### L 400.0001 #### [facility] [address] [facility] [address] BILIRUBIN URINE Negative Normal Negative [facility] Comment on above: Order Comment: CLEAN CATCH Performed By: #### L 400.0001 #### [facility] [address] [facility] [address] Clarity (U) Turbid Normal Clear [facility] Comment on above: Order Comment: CLEAN CATCH Performed By: #### L 400.0001 #### [facility] [address] [place], [address] Color (U) Straw Normal Yellow [facility] Comment on above: Order Comment: CLEAN CATCH Performed By: #### L 400.0001 #### [facility] [address] [facility] [address] GLUCOSE, UR Normal Normal Normal [facility] Comment on above: Order Comment: CLEAN CATCH Performed By: #### L 400.0001 #### [facility] [address] [place], [address] KETONE UR 15 mg/dl Abnormal Negative [facility] Comment on above: Order Comment: CLEAN CATCH Performed By: #### L 400.0001 #### [facility] [address] [facility] [address] LEUK ESTERASE Negative Normal Negative [facility] Comment on above: Order Comment: CLEAN CATCH Performed By: #### L 400.0001 #### [facility] [address] [place], [address] Nitrite Ql (U) Negative Normal Negative [facility] Comment on above: Order Comment: CLEAN CATCH Performed By: #### L 400.0001 #### [facility] [address] [place], [address] OCCULT BLOOD-UR Negative Normal Negative [facility] Comment on above: Order Comment: CLEAN CATCH Performed By: #### L 400.0001 #### [facility] [address] [place], [address] pH UR 6.5 Normal 5.0 - 8.0 [facility] Comment on above: Order Comment: CLEAN CATCH Performed By: #### L 400.0001 #### [facility] [address] [place], [address] PROT DIPSTX Negative Normal Negative [facility] Comment on above: Order Comment: CLEAN CATCH Performed By: #### L 400.0001 #### [facility] [address] [place], [address] SP.GR. DIPSTX 1.010 Normal 1.002-1.03 0 [facility] Comment on above: Order Comment: CLEAN CATCH Performed By: #### L 400.0001 #### [facility] [address] [place], [address] UROBILI Normal Normal Normal [facility] Comment on above: Order Comment: CLEAN CATCH Performed By: #### L 400.0001 #### [facility] [address] [place], [address] Mucus Ql (Urine sed) 0 SEEN Normal [facility] Comment on above: Order Comment: CLEAN CATCH Performed By: #### L 400.0001 #### [facility] [address] [place], [place], [address] RBC 0 SEEN Normal 0-5 [facility] Comment on above: Order Comment: CLEAN CATCH Performed By: #### L 400.0001 #### [facility] [address] [place], [place], [address] Urine clarityOrdered By: Franklin Coffey on 10-26-2024 Clarity (U) Turbid Clear [facility] Urine color determinationOrd ered By: Ramesh Coffey on 10-26-2024 Color (U) Straw Yellow [facility] Urine glucose detectionOrder ed By: Ramesh Coffey on 10-26-2024 Glucose Ql (U) Normal mg/dl Normal [facility] Urine leukocyte esterase det ection by dipstickOrdered By: Ramesh Coffey on 10-26-2024 Leukocyte esterase Test strip Ql (U) Negative Negative [facility] Urine pHOrdered By: Ramesh mendieta on 10-26-2024 pH (U) 6.5 [pH] 5.0 - 8.0 [facility] Urine sediment bacteria coun t by microscopy (number/high power field)Ordered By: Ramesh Coffey on 10-26-2024 Bacteria LM.HPF (Urine sed) [#/Area] 2 /[HPF] None Seen [facility] Urine specific gravity measu rementOrdered By: Ramesh Coffey on 10-26-2024 Specific gravity (U) [Rel density] 1.010 1.002-1.03 0 [facility] Urine urobilinogen measureme ntOrdered By: Ramesh Coffey on 10-26-2024 Urobilinogen Ql (U) Normal mg/dl Normal [facility] White blood cell (WBC) count Ordered By: Ramesh Coffey on 10-26-2024 WBC (Bld) [#/Vol] 7.7 10*3/uL 4.4-11.0 [facility] White blood cell countOrdere d By: Ramesh Coffey on 10-26-2024 White blood cell count 0-5 SEEN /hpf 0-5 [facility] Absolute lymphocyte countOrd ered By: Elinor Aguilar on 09-06-2024 Lymphocytes Auto (Unsp spec) [#/Vol] 2.17 10*3/uL 0.83-4.51 [facility] Absolute neutrophil countOrd ered By: Elinor Aguilar on 09-06-2024 Neutrophils (Bld) [#/Vol] 4.7 10*3/uL 2.0-7.7 [facility] Anion gap in Serum or Plasma Ordered By: Elinor Aguilar on 09-06-2024 Anion gap [Moles/Vol] 10 mmol/L 5-15 [facility] Automated lymphocyte count a s percentage of total leukocytesOrdered By: Elinor Aguilar on 09-06-2024 Lymphocytes/100 WBC Auto (Unsp spec) 28.3 % 19- [facility] BUN/creatinine ratioOrdered By: Elinor Aguilar on 09-06-2024 Urea nitrogen/Creatinine [Mass ratio] 12.4 mg/mg 10-20 [facility] Basophil percentageOrdered B y: Elinor Aguilar on 09-06-2024 Basophils/100 WBC (Bld) 0.8 % 0-1 [facility] Bilirubin, totalOrdered By: Elinor Aguilar on 09-06-2024 Bilirubin [Mass/Vol] 0.27 mg/dL 0.00-1.30 [facility] CBC W/Diff, Automatedon Absolute Lymph 2.17 X10 3/uL Normal 0.83-4.51 [facility] Comment on above: Performed By: #### L 100.0100, L500.4050 #### [facility] [address] [place], [address] Absolute Neut 4.7 X10 3/uL Normal 2.0-7.7 [facility] Comment on above: Performed By: #### L 100.0100, L500.4050 #### [facility] [address] [place], [address] Basophils/100 WBC (Bld) 0.8 % Normal 0-1 [facility] Comment on above: Performed By: #### L 100.0100, L500.4050 #### [facility] [address] [place], [address] Eosinophils/100 WBC (Bld) 0.8 % Normal 0-5 [facility] Comment on above: Performed By: #### L 100.0100, L500.4050 #### [facility] [address] [place], [address] Erythrocyte distribution width (RBC) [Ratio] 12.6 % Normal 11.6-14.6 [facility] Comment on above: Performed By: #### L 100.0100, L500.4050 #### [facility] Laboratory [address] [place], [address] Hematocrit (Bld) [Volume fraction] 38.1 % Normal 37-47 [facility] Comment on above: Performed By: #### L 100.0100, L500.4050 #### [facility] Laboratory [address] [place], [address] Hemoglobin (Bld) [Mass/Vol] 12.6 g/dL Normal 12.0-15.0 [facility] Comment on above: Performed By: #### L 100.0100, L500.4050 #### [facility] Laboratory [address] [place], [address] IG% 0.400 Normal 0.0-0.9 [facility] Comment on above: Result Comment: IG% - Immature Granulocytes (promyelocytes, myelocytes and metamyelocytes) > 1% indicates that a LEFT SHIFT is Present. Performed By: #### L 100.0100, L500.4050 #### [facility] Laboratory [address] [place], [address] Lymphocytes/100 WBC (Bld) 28.3 % Normal 19-41 [facility] Comment on above: Performed By: #### L 100.0100, L500.4050 #### [facility] Laboratory [address] [place], [address] MCH (RBC) [Entitic mass] 31.3 pg Normal 27.0-32.0 [facility] Comment on above: Performed By: #### L 100.0100, L500.4050 #### [facility] Laboratory [address] [place], [address] MCHC (RBC) [Mass/Vol] 33.1 g/dL Normal 32-36 [facility] Comment on above: Performed By: #### L 100.0100, L500.4050 #### [facility] Laboratory [address] [place], [address] MCV (RBC) [Entitic vol] 94.5 fL Normal 81-99 [facility] Comment on above: Performed By: #### L 100.0100, L500.4050 #### [facility] Laboratory [address] [place], [address] Monocytes/100 WBC (Bld) 8.5 % Normal 0-10 [facility] Comment on above: Performed By: #### L 100.0100, L500.4050 #### [facility] Laboratory [address] [place], [address] Neutrophils/100 WBC (Bld) 61.2 % Normal 47-70 [facility] Comment on above: Performed By: #### L 100.0100, L500.4050 #### [facility] Laboratory [address] [place], [address] Nucleated RBC (Bld) [#/Vol] 0 10*3/uL Normal 0-5 [facility] Comment on above: Performed By: #### L 100.0100, L500.4050 #### [facility] Laboratory [address] [place], [address] Platelet mean volume (Bld) [Entitic vol] 10.2 fL Normal 6.2-12.0 [facility] Comment on above: Performed By: #### L 100.0100, L500.4050 #### [facility] Laboratory [address] [place], [address] Platelets (Bld) [#/Vol] 325 10*3/uL Normal 150-450 [facility] Comment on above: Performed By: #### L 100.0100, L500.4050 #### [facility] Laboratory [address] [place], [address] RBC (Bld) [#/Vol] 4.03 10*6/uL Low 4.2-5.4 [facility] Comment on above: Performed By: #### L 100.0100, L500.4050 #### [facility] Laboratory [address] [place], [address] RDW SD 43.8 fl Normal 35.1-43.9 [facility] Comment on above: Performed By: #### L 100.0100, L500.4050 #### [facility] Laboratory [address] [place], [address] WBC (Bld) [#/Vol] 7.7 10*3/uL Normal 4.4-11.0 [facility] Comment on above: Performed By: #### L 100.0100, L500.4050 #### [facility] [address] [place], [address] Carbon dioxide, total [Moles /volume] in Central venous bloodOrdered By: Elinor Aguilar on 09-06-2024 CO2 [Moles/Vol] 26.6 mmol/L 21.0-32.0 [facility] Chloride assayOrdered By: Ayden Aguilar on 09-06-2024 Chloride [Moles/Vol] 104 mmol/L 98-108 [facility] Comprehensive Metabolic Prof ilon 09-06-2024 Albumin [Mass/Vol] 4.6 g/dL Normal 3.5-5.0 [facility] Comment on above: Performed By: #### L 100.0100, L500.4050 #### [facility] Laboratory [address] [place], [address] Albumin/Globulin [Mass ratio] 2.0 {ratio} Normal 0.9-2.4 [facility] Comment on above: Performed By: #### L 100.0100, L500.4050 #### [facility] Laboratory [address] [place], [address] ALK PHOS 75 U/L Normal 35-104 [facility] Comment on above: Performed By: #### L 100.0100, L500.4050 #### [facility] [address] [place], [address] ALT [Catalytic activity/Vol] 25 U/L Normal <=34 [facility] Comment on above: Performed By: #### L 100.0100, L500.4050 #### [facility] [address] [place], [address] AST [Catalytic activity/Vol] 18 U/L Normal <=31 [facility] Comment on above: Performed By: #### L 100.0100, L500.4050 #### [facility] [address] [place], [address] Bilirubin [Mass/Vol] 0.27 mg/dL Normal 0.00-1.30 [facility] Comment on above: Performed By: #### L 100.0100, L500.4050 #### [facility] [address] [place], [address] BUN/CRE 12.4 RATIO Normal 10-20 [facility] Comment on above: Performed By: #### L 100.0100, L500.4050 #### [facility] Laboratory [address] [place], [address] Calcium [Mass/Vol] 9.9 mg/dL Normal 7.6-11.0 [facility] Comment on above: Performed By: #### L 100.0100, L500.4050 #### [facility] Laboratory [address] [place], [address] Chloride [Moles/Vol] 104 mmol/L Normal 98-108 [facility] Comment on above: Performed By: #### L 100.0100, L500.4050 #### [facility] [address] [place], [address] CO2 [Moles/Vol] 26.6 mmol/L Normal 21.0-32.0 [facility] Comment on above: Performed By: #### L 100.0100, L500.4050 #### [facility] Laboratory [address] [place], [address] Creatinine [Mass/Vol] 0.68 mg/dL Low 0.70-1.20 [facility] Comment on above: Performed By: #### L 100.0100, L500.4050 #### [facility] [address] [place], [address] GAP 10 Normal 5-15 [facility] Comment on above: Performed By: #### L 100.0100, L500.4050 #### [facility] [address] [place], [address] GFR/1.73 sq M.predicted among non-blacks MDRD (S/P/Bld) [Vol rate/Area] 106 mL/min/{1.73_m2} Normal >60 [facility] Comment on above: Result Comment: mL/m in/1.73m2 CKD-EPI Creatinine Equation (2020) Performed By: #### L 100.0100, L500.4050 #### [facility] Laboratory [address] [place], [address] Globulin (S) [Mass/Vol] 2.3 g/dL Normal 2.2-4.2 [facility] Comment on above: Performed By: #### L 100.0100, L500.4050 #### [facility] Laboratory [address] [place], [address] Glucose [Mass/Vol] 103 mg/dL High 70-99 [facility] Comment on above: Performed By: #### L 100.0100, L500.4050 #### [facility] Laboratory [address] [place], [address] Potassium [Moles/Vol] 4.4 mmol/L Normal 3.3-5.1 [facility] Comment on above: Performed By: #### L 100.0100, L500.4050 #### [facility] [address] [place], [address] Sodium [Moles/Vol] 141 mmol/L Normal 133-145 [facility] Comment on above: Performed By: #### L 100.0100, L500.4050 #### [facility] Laboratory [address] [place], [address] T PROT 6.9 g/dL Normal 5.9-8.4 [facility] Comment on above: Performed By: #### L 100.0100, L500.4050 #### [facility] [address] [place], [address] Urea nitrogen [Mass/Vol] 8 mg/dL Normal 4-19 [facility] Comment on above: Performed By: #### L 100.0100, L500.4050 #### [facility] Laboratory [address] [place], [address] Eosinophil percentageOrdered By: Elinor Aguilar on 09-06-2024 Eosinophils/100 WBC (Bld) 0.8 % 0-5 [facility] Erythrocyte distribution wid th (RBC) [Ratio]Ordered By: Elinor Aguilar on 09-06-2024 Erythrocyte distribution width (RBC) [Entitic vol] 43.8 fL 35.1-43.9 [facility] Erythrocyte distribution wid th ratioOrdered By: Elinor Aguilar on 09-06-2024 Erythrocyte distribution width (RBC) [Ratio] 12.6 % 11.6-14.6 [facility] Erythrocyte distribution wid th standard deviationOrdered By: Elinor Aguilar on 09-06-2024 Erythrocyte distribution width (RBC) [Ratio] 43.8 fl 35.1-43.9 [facility] GFR/1.73 sq M.predicted natan g non-blacks MDRD (S/P/Bld) [Vol rate/Area]Ordered By: Elinor Aguilar on 09-06-2024 Estimated GFR (MDRD) Non-Af Amer 106 >60 [facility] Comment on above: mL/min/1.73m2 CKD-EP I Creatinine Equation (2020) Glomerular filtration rate ( GFR) estimation/1.73 sq m using serum, plasma, or whole bOrdered By: Elinor Aguilar on 09-06-2024 GFR/1.73 sq M.predicted among non-blacks MDRD (S/P/Bld) [Vol rate/Area] 106 mL/min/{1.73_m2} >60 [facility] Comment on above: mL/min/1.73m2 CKD-EP I Creatinine Equation (2020) Hematocrit Auto (Bld) [Volum e fraction]Ordered By: Elinor Aguilar on 09-06-2024 Hematocrit (Bld) [Volume fraction] 38.1 % 37-47 [facility] Hemoglobin measurementOrdere d By: Elinor Aguialr on 09-06-2024 Hemoglobin (Bld) [Mass/Vol] 12.6 g/dL 12.0-15.0 [facility] Immature granulocytes/100 WB C Auto (Bld)Ordered By: Elinor Aguilar on 09-06-2024 Immature granulocytes/100 WBC (Bld) 0.400 % 0.0-0.9 [facility] Comment on above: IG% - Immature Granu locytes (promyelocytes, myelocytes and metamyelocytes) > 1% indicates that a LEFT SHIFT is Present. Laboratory - Chemistry and C hemistry - challengeOrdered By: Elinor Aguilar on 09-06-2024 AST [Catalytic activity/Vol] 18 U/L <32 [facility] Lymphocytes Auto (Unsp spec) [#/Vol]Ordered By: Elinor Aguilar on 09-06-2024 Lymphocytes (Bld) [#/Vol] 2.17 10*3/uL 0.83-4.51 [facility] Lymphocytes/100 WBC Auto (Un sp spec)Ordered By: Elinor Aguilar on 09-06-2024 Lymphocytes/100 WBC (Bld) 28.3 % 19-41 [facility] MCV (mean corpuscular volume ) determinationOrdered By: Elinor Aguilar on 09-06-2024 MCV (RBC) [Entitic vol] 94.5 fL 81-99 [facility] Mean corpuscular hemoglobin (MCH) determinationOrdered By: Elinor Aguilar on 09-06-2024 MCH (RBC) [Entitic mass] 31.3 pg 27.0-32.0 [facility] Mean corpuscular hemoglobin concentration (MCHC) determinationOrdered By: Elinor Aguilar on 09-06-2024 MCHC (RBC) [Mass/Vol] 33.1 g/dL 32-36 [facility] Mean platelet volume determi nationOrdered By: Elinor Aguilar on 09-06-2024 Platelet mean volume (Bld) [Entitic vol] 10.2 fL 6.2-12.0 [facility] Monocyte percentageOrdered B y: Elinor Aguilar on 09-06-2024 Monocytes/100 WBC (Bld) 8.5 % 0-10 [facility] Neutrophil percentageOrdered By: Elinor Aguilar on 09-06-2024 Neutrophils/100 WBC (Bld) 61.2 % 47-70 [facility] Nucleated red blood cell per centageOrdered By: Elinor Aguilar on 09-06-2024 Nucleated RBC/100 WBC (Bld) [Ratio] 0 % 0-5 [facility] Platelet countOrdered By: Ayden Aguilar on 09-06-2024 Platelets (Bld) [#/Vol] 325 10*3/uL 150-450 [facility] Potassium (Unsp spec) [Mass/ Vol]Ordered By: Elinor Aguilar on 09-06-2024 Potassium [Moles/Vol] 4.4 mmol/L 3.3-5.1 [facility] Potassium measurement (mass/ volume)Ordered By: Elinor Aguilar on 09-06-2024 Potassium (Unsp spec) [Mass/Vol] 4.4 mmol/L 3.3-5.1 [facility] RBC Auto (Bld) [#/Vol]Ordere d By: Elinor Aguilar on 09-06-2024 RBC (Bld) [#/Vol] 4.03 10*6/uL Low 4.2-5.4 [facility] Serum creatinine measurement (mass/volume)Ordered By: Elinor Aguilar on 09-06-2024 Creatinine [Mass/Vol] 0.68 mg/dL Low 0.70-1.20 [facility] Serum globulin measurementOr dered By: Elinor Aguilar on 09-06-2024 Globulin (S) [Mass/Vol] 2.3 g/dL 2.2-4.2 [facility] Serum glucose measurement (m ass/volume)Ordered By: Elinor Aguilar on 09-06-2024 Glucose [Mass/Vol] 103 mg/dL High 70-99 [facility] Serum or plasma alanine kirk otransferase (ALT) measurementOrdered By: Elinor Aguilar on 09-06-2024 ALT [Catalytic activity/Vol] 25 U/L <35 [facility] Serum or plasma albumin herberth urement (mass/volume)Ordered By: Elinor Aguilar on 09-06-2024 Albumin [Mass/Vol] 4.6 g/dL 3.5-5.0 [facility] Serum or plasma albumin/glob ulin mass ratioOrdered By: Elinor Aguilar on 09-06-2024 Albumin/Globulin [Mass ratio] 2.0 {ratio} 0.9-2.4 [facility] Serum or plasma alkaline joseph sphatase measurementOrdered By: Elinor Aguilar on 09-06-2024 ALP [Catalytic activity/Vol] 75 U/L 35-104 [facility] Serum or plasma calcium herberth urement (mass/volume)Ordered By: Elinor Aguilar on 09-06-2024 Calcium [Mass/Vol] 9.9 mg/dL 7.6-11.0 [facility] Serum or plasma urea nitroge n measurement (mass/volume)Ordered By: Elinor Aguilar on 09-06-2024 Urea nitrogen [Mass/Vol] 8 mg/dL 4-19 [facility] Sodium levelOrdered By: Renny Aguilar on 09-06-2024 Sodium [Moles/Vol] 141 mmol/L 133-145 [facility] Total proteinOrdered By: Ruby Aguilar on 09-06-2024 Protein [Mass/Vol] 6.9 g/dL 5.9-8.4 [facility] White blood cell (WBC) count Ordered By: Elinor Aguilar on 09-06-2024 WBC (Bld) [#/Vol] 7.7 10*3/uL 4.4-11.0 [facility] Gram stain for investigation of transfusion reactionOrdered By: Charlette Tran on 10-06-2023 Microscopic observation Gram stain Nom (Unsp spec) [facility] No Panel InformationOrdered By: Charlette Tran on 10-06-2023 Genital Culture Neisseria or beta-hemolytic Streptococcus isolated. [facility] Basophil percentageOrdered B y: Natividad Yee on 03-22-2023 Bilirubin [Mass/Vol] 0.50 mg/dL 0.20-1.00 [facility] Comment on above: For patients on eltr ombopag therapy, use of Dimension [place] TBIL is not recommended. Chloride [Moles/Vol] 104 mmol/L 98-107 [facility] Glucose [Mass/Vol] 94 mg/dL 74-106 [facility] Potassium [Moles/Vol] 3.5 mmol/L 3.5-5.1 [facility] Protein [Mass/Vol] 7.1 g/dL 6.4-8.2 [facility] Sodium [Moles/Vol] 138 mmol/L 136-145 [facility] Laboratory - Chemistry and C hemistry - challengeOrdered By: Natividad Yee on 03-22-2023 ALP [Catalytic activity/Vol] 61 U/L 45-117 [facility] ALT [Catalytic activity/Vol] 21 U/L 13-56 [facility] CO2 [Moles/Vol] 29.0 mmol/L 21.0-32.0 [facility] Globulin (S) [Mass/Vol] 3.5 g/dL 2.2-4.2 [facility] Urea nitrogen/Creatinine [Mass ratio] 22.5 mg/mg 10-20 [facility] No Panel InformationOrdered By: Natividad Yee on 03-22-2023 Estimated GFR (MDRD) Amer 112 mL/min >60 [facility] Comment on above: GFR Calc Estimated GFR (MDRD) Non-Af Amer 93 mL/min >60 [facility] Comment on above: Non- GFR Calc Parathyroid Hormone (Intact) 48.8 pg/mL 18.4-80.1 [facility] Serum or plasma albumin herberth urement (mass/volume)Ordered By: Natividad Yee on 03-22-2023 Albumin [Mass/Vol] 3.6 g/dL 3.2-5.0 [facility] Serum or plasma albumin/glob ulin mass ratioOrdered By: Natividad Yee on 03-22-2023 Albumin/Globulin [Mass ratio] 1.0 {ratio} 0.9-2.4 [facility] Serum or plasma calcium herberth urement (mass/volume)Ordered By: Natividad Yee on 03-22-2023 Calcium [Mass/Vol] 9.3 mg/dL 8.5-10.1 [facility] Serum or plasma creatinine m easurement (mass/volume)Ordered By: Natividad Hills on 03-22-2023 Creatinine [Mass/Vol] 0.71 mg/dL 0.55-1.02 [facility] Comment on above: The validity of the calculated GFR & GFRAA in patients over 70 years has not been determined. Clinical correlation is essential. Serum or plasma urea nitroge n measurement (mass/volume)Ordered By: Natividad Yee on 03-22-2023 Urea nitrogen [Mass/Vol] 16 mg/dL 7-18 [facility] Thin prep Papanicolaou smear with manual screeningOrdered By: Natividad Yee on 03-22-2023 Thin prep Papanicolaou smear with manual screening 9 U/L 15-37 [facility] Thin prep Papanicolaou smear with manual screening 5 5-15 [facility] Laboratory - Drug toxicology Ordered By: Dr. Layne on 08-17-2022 Amphetamines Ql (U) Negative <1000 ng/mL [facility] Benzodiazepines Ql (U) Negative < 200 ng/mL [facility] Cannabinoids Screen Ql (U) Negative < 50 ng/mL [facility] Cocaine Ql (U) Negative < 300 ng/mL [facility] Opiates Ql (U) Negative < 300 ng/mL [facility] No Panel InformationOrdered By: Dr. Layne on 08-17-2022 MDMA (Ecstasy) Screen Negative < 500 ng/mL [facility] Miscellaneous Test See comment [facility] Comment on above: TEST RESULTS LIMITST ramadol Tramadol Positive Aqdfwr=691 Tramadol Conf, [place], [place] 2720 ng/mL Evtgbb=857 TESTING PERFORMED AT [facility]. ORIGINAL REPORT ON FILE IN LAB CONTAINS ADDITIONAL TEST SITE INFORMATION. Urine Barbiturates Screen Negative < 200 ng/mL [facility] Urine Drug Screen Comment [facility] Comment on above: CONFIRMATORY TESTING FOR ALL [...] Urine Methadone Screen Negative < 300 ng/mL [facility] Urine phencyclidine (PCP) de tectionOrdered By: Dr. Layne on 08-17-2022 Phencyclidine Ql (U) Negative < 25 ng/mL [facility] EMG(NEURO/NI)on 08-05-2022 [facility] Laboratory - Drug toxicology Ordered By: Dr. Layne on 07-20-2022 Amphetamines Ql (U) Negative <1000 ng/mL [facility] Benzodiazepines Ql (U) Negative < 200 ng/mL [facility] Cannabinoids Screen Ql (U) Negative < 50 ng/mL [facility] Cocaine Ql (U) Negative < 300 ng/mL [facility] Opiates Ql (U) Negative < 300 ng/mL [facility] No Panel InformationOrdered By: Dr. Layne on 07-20-2022 MDMA (Ecstasy) Screen Negative < 500 ng/mL [facility] Miscellaneous Test See comment [facility] Comment on above: TEST RESULT LIMITSTr amadol Negative ng/mL Kondim=200 ____ TESTING PERFORMED AT [facility]. ORIGINAL REPORT ON FILE IN LAB CONTAINS ADDITIONAL TEST SITE INFORMATION. Urine Barbiturates Screen Negative < 200 ng/mL [facility] Urine Drug Screen Comment [facility] Comment on above: CONFIRMATORY TESTING FOR ALL [...] Urine Methadone Screen Negative < 300 ng/mL [facility] Urine phencyclidine (PCP) de tectionOrdered By: Dr. Layne on 07-20-2022 Phencyclidine Ql (U) Negative < 25 ng/mL [facility] Basophil percentageon 2021 Basophil percentage < 0.9 mg/dL 0.55-1.02 [facility] Work Phone: No Panel Informationon 11-09 Bedside Estimated GFR (eGFR) > 60.0000 mL/min >60 [facility] Work Phone: COMPREHENSIVE METABOLIC PANE Kong 10-17-2020 Albumin [Mass/Vol] 4.7 g/dL Normal 3.6-5.1 [facility] Comment on above: Performed By: #### 1 0231, 97485 #### [facility] of [address], [address] [place] [address] [employer]: Marcelino Matthews MD Albumin/Globulin [Mass ratio] 1.9 {ratio} Normal 1.0-2.5 [facility] Comment on above: Performed By: #### 1 0231, 90783 #### [facility] of [place] [address] [employer]ist: Marcelino Matthews MD ALP [Catalytic activity/Vol] 65 U/L Normal 31-125 [facility] Comment on above: Performed By: #### 1 0231, 46727 #### [facility] of [place] [address] [employer]inist: Marcelino Matthews MD ALT [Catalytic activity/Vol] 13 U/L Normal 6-29 [facility] Comment on above: Performed By: #### 1 0231, 40607 #### [facility] of [place] [address] [employer]ist: Marcelino Matthews MD AST [Catalytic activity/Vol] 15 U/L Normal 10-35 [facility] Comment on above: Performed By: #### 1 0231, 42324 #### [facility] of [place] [address] [employer]ist: Marcelino Matthews MD Bilirubin [Mass/Vol] 0.5 mg/dL Normal 0.2-1.2 [facility] Comment on above: Performed By: #### 1 0231, 06619 #### [facility] [place] [address] [employer]ist: Marcelino Matthews MD BUN/CREATININE RATIO NOT APPLICABLE Normal 6-22 [facility] Comment on above: Performed By: #### 1 0231, 22649 #### [facility] of [place] [address] [employer]ist: Marcelino Matthews MD Calcium [Mass/Vol] 9.7 mg/dL Normal 8.6-10.2 [facility] Comment on above: Performed By: #### 1 0231, 69910 #### [facility] of [place] [address] [employer]ist: Marcelino Matthews MD Chloride [Moles/Vol] 102 mmol/L Normal 98-110 [facility] Comment on above: Performed By: #### 1 0231, 98104 #### [facility] [place] [address] [employer]ist: Marcelino Matthews MD CO2 [Moles/Vol] 31 mmol/L Normal 20-32 [facility] Comment on above: Performed By: #### 1 0231, 88920 #### [facility] [place] [address] [employer]ist: Marcelino Matthews MD Creatinine [Mass/Vol] 0.83 mg/dL Normal 0.50-1.[address] [facility] Comment on above: Performed By: #### 1 0231, 13671 #### [facility] of [place] [address] [employer]ist: Marcelino Matthews MD eGFR NON-AFR. SAO TOMEAN 84 mL/min/1.73m2 Normal > OR = 60 [facility] Comment on above: Performed By: #### 1 0231, 05421 #### [facility] of [place] [address] [employer]ist: Marcelino Matthews MD GFR/1.73 sq M.predicted among blacks MDRD (S/P/Bld) [Vol rate/Area] 97 mL/min/{1.73_m2} Normal > OR = 60 [facility] Comment on above: Performed By: #### 1 0231, 07382 #### [facility] [place] [address] [employer]ist: Marcelino Matthews MD Globulin (S) [Mass/Vol] 2.5 g/dL Normal 1.9-3.7 [facility] Comment on above: Performed By: #### 1 0231, 95651 #### [facility] [place] [address] [employer]ist: Marcelino Matthews MD Glucose [Mass/Vol] 100 mg/dL High 65-99 [facility] Comment on above: Result Comment: Fasting reference interval For someone without known diabetes, a glucose value between 100 and 125 mg/dL is consistent with prediabetes and should be confirmed with a follow-up test. Performed By: #### 1 0231, 37219 #### [facility] [place] [address] [employer]ist: Marcelino Matthews MD Potassium [Moles/Vol] 4.2 mmol/L Normal 3.5-5.[address] [facility] Comment on above: Performed By: #### 1 0231, 62936 #### [facility] [place] [address] [employer]ist: Marcelino Matthews MD Protein [Mass/Vol] 7.2 g/dL Normal 6.1-8.1 [facility] Comment on above: Performed By: #### 1 0231, 08265 #### [facility] [place] [address] [employer]ist: Marcelino Matthews MD Sodium [Moles/Vol] 138 mmol/L Normal 135-146 [facility] Comment on above: Performed By: #### 1 0231, 42724 #### [facility] [place] [address] [employer]ist: Marcelino Matthews MD Urea nitrogen [Mass/Vol] 10 mg/dL Normal 7-25 [facility] Comment on above: Performed By: #### 1 0231, 88306 #### [facility] [address] [place] [address] [employer]ist: Marcelino Matthews MD SARS COV 2 AB (IGG) Monica VO 10-17-2020 SARS-CoV-2 (COVID-19) Ab IA Qn 4.65 index High <1.00 [facility] Comment on above: Result Comment: Reference [...] providers and patients using the following websites: https://www.[employer].Furious/home/Covid-19/HCP/antibody/ fact-sheet8 https://www.[employer].com/home/Covid-19/Patients/ antibody/fact-sheet8 Healthcare Providers: For additional information please refer to: http://education.[employer].com.Furious/faq/KBG400 (This link is being provided for informational/ educational purposes only.) This test has been authorized by the FDA under an Emergency Use Authorization (EUA) for use by authorized laboratories. The FDA authorized labeling is available on the [employer] website: www.[employer].Furious/Covid19. Performed By: #### 1 0231, 50057 #### [facility] [place] [address] [facility], [address] [place], [place] [id number] Cnc Lathe Machinist: Marcelino Matthews MD Office Visit: Establish Care on 11-17-2015 Protein mass conc Done [facility] Work Phone: [phone] Tobacco smoking status CAIS Never [facility] Work Phone: [phone] Tobacco smoking status [facility] Never smoker [facility] Work Phone: [phone] Vital Signs Date Time Vital Sign Value Performing Clinician Facility 01-30-2025 15:12-0400 Body height 170.2 cm Isra Godfrey MD Work Phone: [facility] 01-30-2025 15:12-0400 Body mass index (BMI) [Ratio] 24.75 kg/m2 Isra Godfrey MD Work Phone: [facility] 01-30-2025 15:12-0400 Body weight 71.67 kg Isra Godfrey MD Work Phone: [facility] 01-30-2025 15:12-0400 Diastolic blood pressure 70 mm[Hg] Isra Godfrey MD Work Phone: [facility] 01-30-2025 15:12-0400 Heart rate 75 /min Isra Godfrey MD Work Phone: [facility] 01-30-2025 15:12-0400 SaO2% (BldA) [Mass fraction] 98 % Isra Godfrey MD Work Phone: [facility] 01-30-2025 15:12-0400 Systolic blood pressure 110 mm[Hg] Isra Godfrey MD Work Phone: [facility] 01-08-2025 10:05-0400 Body height 170.2 cm Kate Hernandez APRN - DIRECTOR OF DISTANCE LEARNING Work Phone: [facility] 01-08-2025 10:05-0400 Body mass index (BMI) [Ratio] 25.06 kg/m2 Kate Hernandez DOCTOR OSTEOPATHIC - DIRECTOR OF DISTANCE LEARNING Work Phone: [facility] 01-08-2025 10:05-0400 Body weight 72.58 kg Kate Hernandez APRN - DIRECTOR OF DISTANCE LEARNING Work Phone: [facility] 01-08-2025 10:05-0400 Diastolic blood pressure 78 mm[Hg] Kate Hernandez APRN - DIRECTOR OF DISTANCE LEARNING Work Phone: [facility] 01-08-2025 10:05-0400 Heart rate 78 /min Kate Hernandez APRN - DIRECTOR OF DISTANCE LEARNING Work Phone: [facility] 01-08-2025 10:05-0400 Systolic blood pressure 114 mm[Hg] Kate Hernandez APRN - DIRECTOR OF DISTANCE LEARNING Work Phone: [facility] 12-10-2024 09:46-0400 Diastolic blood pressure 90 mm[Hg] Isra Godfrey MD Work Phone: [facility] 12-10-2024 09:46-0400 Systolic blood pressure 136 mm[Hg] Isra Godfrey MD Work Phone: [facility] 12-10-2024 09:37-0400 Body height 170.2 cm Isra Godfrey MD Work Phone: [facility] 12-10-2024 09:37-0400 Body mass index (BMI) [Ratio] 25.73 kg/m2 Isra Godfrey MD Work Phone: [facility] 12-10-2024 09:37-0400 Body weight 74.53 kg Isra Godfrey MD Work Phone: [facility] 12-10-2024 09:37-0400 Heart rate 76 /min Isra Godfrey MD Work Phone: [facility] 11-30-2024 09:19-0400 Body height 170.18 cm [employer] PA-C Work Phone: [facility] 11-30-2024 09:19-0400 Body mass index (BMI) [Ratio] 26.2 kg/m2 [employer] PA-C Work Phone: [facility] 11-30-2024 09:19-0400 Body temperature 97.5 [degF] [employer] PA-C Work Phone: [facility] 11-30-2024 09:19-0400 Body weight 75.74 kg [employer] PA-C Work Phone: [facility] 11-30-2024 09:19-0400 Diastolic blood pressure 92 mm[Hg] [employer] PA-C Work Phone: [facility] 11-30-2024 09:19-0400 Heart rate 77 /min [employer] PA-C Work Phone: [facility] 11-30-2024 09:19-0400 Respiratory rate 18 /min [employer] PA-C Work Phone: [facility] 11-30-2024 09:19-0400 SaO2% (BldA) [Mass fraction] 98 % [employer] PA-C Work Phone: [facility] 11-30-2024 09:19-0400 Systolic blood pressure 142 mm[Hg] [employer] PA-C Work Phone: [facility] 11-05-2024 19:36-0400 Body temperature 98 [degF] [employer] PA-C Work Phone: [facility] 11-05-2024 19:36-0400 Diastolic blood pressure 90 mm[Hg] [employer] PA-C Work Phone: [facility] 11-05-2024 19:36-0400 Heart rate 85 /min [employer] PA-C Work Phone: [facility] 11-05-2024 19:36-0400 Respiratory rate 18 /min [employer] PA-C Work Phone: [facility] 11-05-2024 19:36-0400 SaO2% (BldA) [Mass fraction] 100 % [employer] PA-C Work Phone: [facility] 11-05-2024 19:36-0400 Systolic blood pressure 143 mm[Hg] [employer] PA-C Work Phone: [facility] 11-05-2024 15:29-0400 Body height 170.18 cm [employer] PA-C Work Phone: [facility] 11-05-2024 15:29-0400 Body mass index (BMI) [Ratio] 26.7 kg/m2 [employer] PA-C Work Phone: [facility] 11-05-2024 15:29-0400 Body weight 77.38 kg [employer] PA-C Work Phone: [facility] 10-31-2024 11:00-0400 Diastolic blood pressure 81 mm[Hg] [employer] PA-C Work Phone: [facility] 10-31-2024 11:00-0400 Heart rate 114 /min [employer] PA-C Work Phone: [facility] 10-31-2024 11:00-0400 Respiratory rate 20 /min [employer] PA-C Work Phone: [facility] 10-31-2024 11:00-0400 SaO2% (BldA) [Mass fraction] 18 % Natividad Athletic Standard PA-C Work Phone: [facility] 10-31-2024 11:00-0400 Systolic blood pressure 157 mm[Hg] [employer] Standard PA-C Work Phone: [facility] 10-31-2024 07:20-0400 Body height 167.64 cm Natividad [employer] Standard PA-C Work Phone: [facility] 10-31-2024 07:20-0400 Body mass index (BMI) [Ratio] 27.7 kg/m2 [employer] Standard PA-C Work Phone: [facility] 10-31-2024 07:20-0400 Body temperature 98.4 [degF] [employer] PA-C Work Phone: [facility] 10-31-2024 07:20-0400 Body weight 77.88 kg [employer] PA-C Work Phone: [facility] 10-26-2024 08:30-0400 Body temperature 98.1 [degF] [employer] PA-C Work Phone: [facility] 10-26-2024 08:30-0400 Diastolic blood pressure 90 mm[Hg] [employer] PA-C Work Phone: [facility] 10-26-2024 08:30-0400 Heart rate 93 /min [employer] PA-C Work Phone: [facility] 10-26-2024 08:30-0400 Respiratory rate 18 /min [employer] PA-C Work Phone: [facility] 10-26-2024 08:30-0400 SaO2% (BldA) [Mass fraction] 100 % [employer] Standard PA-C Work Phone: [facility] 10-26-2024 08:30-0400 Systolic blood pressure 164 mm[Hg] [employer] Standard PA-C Work Phone: [facility] 10-26-2024 05:30-0400 Body mass index (BMI) [Ratio] 29 kg/m2 Natividad Goldsboro PA-C Work Phone: [facility] 10-26-2024 05:30-0400 Body weight 81.5 kg Natividad [place] PA-C Work Phone: [facility] 11-16-2023 09:14-0400 Body mass index (BMI) [Ratio] 25.21 kg/m2 Lc Krishnan MD Work Phone: [facility] 11-16-2023 09:14-0400 Body temperature 98.1 [degF] Lc Krishnan MD Work Phone: [facility] 11-16-2023 09:14-0400 Body weight 73 kg Lc Krishnan MD Work Phone: [facility] 11-16-2023 09:14-0400 Diastolic blood pressure 84 mm[Hg] Lc Krishnan MD Work Phone: [facility] 11-16-2023 09:14-0400 Heart rate 93 /min Lc Krishnan MD Work Phone: [facility] 11-16-2023 09:14-0400 Respiratory rate 18 /min Lc Krishnan MD Work Phone: [facility] 11-16-2023 09:14-0400 SaO2% (BldA) [Mass fraction] 98 % Lc Krishnan MD Work Phone: [facility] 11-16-2023 09:14-0400 Systolic blood pressure 138 mm[Hg] Lc Krishnan MD Work Phone: [facility] 10-06-2023 11:49-0400 Body height 167.64 cm PA-C Natividad Goldsboro PA Work Phone: [facility] 10-06-2023 11:38-0400 Body mass index (BMI) [Ratio] 26.4 kg/m2 PA-C Natividad G[place]boro PA Work Phone: [facility] 10-06-2023 11:38-0400 Body weight 74.44 kg PA-C Natividad G[place] PA Work Phone: [facility] 10-06-2023 11:38-0400 Diastolic blood pressure 82 mm[Hg] PA-C Natividad Goldsboro PA Work Phone: [facility] 10-06-2023 11:38-0400 Systolic blood pressure 122 mm[Hg] PA-C Natividad Yee PA Work Phone: [facility] 08-12-2022 13:49-0500 Diastolic blood pressure 94 mm[Hg] Salvador Arshad MD Work Phone: [facility] 08-12-2022 13:49-0500 Systolic blood pressure 140 mm[Hg] Salvador Arshad MD Work Phone: [facility] 08-12-2022 13:42-0500 Body height 170.2 cm Salvador Arshad MD Work Phone: [facility] 08-12-2022 13:42-0500 Body weight 70.67 kg Salvador Arshad MD Work Phone: [facility] 08-12-2022 13:42-0500 Heart rate 74 /min Salvador Arshad MD Work Phone: [facility] 08-12-2022 13:42-0500 SaO2% (BldA) [Mass fraction] 97 % Salvador Arshad MD Work Phone: [facility] 11-30-2021 09:33-0400 Body temperature 97.81 [degF] Latoya Athy PA-C Work Phone: [facility] 11-30-2021 09:33-0400 Body weight 66.95 kg Latoya Athy PA-C Work Phone: [facility] 11-30-2021 09:33-0400 Diastolic blood pressure 68 mm[Hg] Latoya Athy PA-C Work Phone: [facility] 11-30-2021 09:33-0400 Heart rate 80 /min Latoya Athy PA-C Work Phone: [facility] 11-30-2021 09:33-0400 Respiratory rate 16 /min Latoya Clement PA-C Work Phone: [facility] 11-30-2021 09:33-0400 SaO2% (BldA) [Mass fraction] 96 % Latoya Clement PA-C Work Phone: [facility] 11-30-2021 09:33-0400 Systolic blood pressure 120 mm[Hg] Latoya Clement PA-C Work Phone: [facility] 11-24-2021 11:00-0400 Body temperature 97.81 [degF] Palak Velazco APRN.DIRECTOR OF DISTANCE LEARNING Work Phone: [facility] 11-24-2021 11:00-0400 Body weight 68.04 kg Palak Velazco APRN.DIRECTOR OF DISTANCE LEARNING Work Phone: [facility] 11-24-2021 11:00-0400 Diastolic blood pressure 74 mm[Hg] Palak Velazco APRN.DIRECTOR OF DISTANCE LEARNING Work Phone: [facility] 11-24-2021 11:00-0400 Heart rate 104 /min Palak Velazco APRN.DIRECTOR OF DISTANCE LEARNING Work Phone: [facility] 11-24-2021 11:00-0400 Respiratory rate 18 /min Palak Velazco APRN.DIRECTOR OF DISTANCE LEARNING Work Phone: [facility] 11-24-2021 11:00-0400 SaO2% (BldA) [Mass fraction] 98 % Palak Velazco APRN.DIRECTOR OF DISTANCE LEARNING Work Phone: [facility] 11-24-2021 11:00-0400 Systolic blood pressure 126 mm[Hg] Palak Velazco APRN.DIRECTOR OF DISTANCE LEARNING Work Phone: [facility] 11-07-2021 17:16-0400 Body height 167.64 cm PA-C [employer] PA Work Phone: [facility] 11-07-2021 17:16-0400 Body mass index (BMI) [Ratio] 23.8 kg/m2 PA-C [employer] PA Work Phone: [facility] Work Phone: 11-07-2021 17:16-0400 Body temperature 97.5 [degF] PA-C Natividad Goldsboro PA Work Phone: [facility] Work Phone: 11-07-2021 17:16-0400 Body weight 67.13 kg PA-C Natividad Athletic Standard PA Work Phone: [facility] Work Phone: 11-07-2021 17:16-0400 Diastolic blood pressure 98 mm[Hg] PA-C Natividad [employer] Standard PA Work Phone: [facility] Work Phone: 11-07-2021 17:16-0400 Heart rate 86 /min PA-C Natividad Athletic Standard PA Work Phone: [facility] Work Phone: 11-07-2021 17:16-0400 Respiratory rate 16 /min PA-C [employer] PA Work Phone: [facility] Work Phone: 11-07-2021 17:16-0400 SaO2% (BldA) [Mass fraction] 99 % PA-C [employer] PA Work Phone: [facility] Work Phone: 11-07-2021 17:16-0400 Systolic blood pressure 166 mm[Hg] PA-C Natividad [employer] Standard PA Work Phone: [facility] Work Phone: 08-24-2021 12:29-0400 Body height 167.64 cm PA-C Natividad Goldsboro PA Work Phone: [facility] Work Phone: 08-24-2021 12:29-0400 Body mass index (BMI) [Ratio] 24.3 kg/m2 PA-C [employer] PA Work Phone: [facility] Work Phone: 08-24-2021 12:29-0400 Body temperature 97.2 [degF] PA-C Natividad Athletic Standard PA Work Phone: [facility] Work Phone: 08-24-2021 12:29-0400 Body weight 68.49 kg PA-C [employer] PA Work Phone: [facility] Work Phone: 08-24-2021 12:29-0400 Diastolic blood pressure 96 mm[Hg] PA-C [employer] PA Work Phone: [facility] Work Phone: 08-24-2021 12:29-0400 Heart rate 93 /min PA-C [employer] PA Work Phone: [facility] Work Phone: 08-24-2021 12:29-0400 Respiratory rate 16 /min PA-C [employer] PA Work Phone: [facility] Work Phone: 08-24-2021 12:29-0400 SaO2% (BldA) [Mass fraction] 98 % PA-C [employer] PA Work Phone: [facility] Work Phone: 08-24-2021 12:29-0400 Systolic blood pressure 134 mm[Hg] PA-C [employer] PA Work Phone: [facility] Work Phone: 11-17-2015 12:50-0400 BMI (Body Mass Index) 25.53 kg/m2 Brook Vasquez RN [facility] Work Phone: 11-17-2015 12:50-0400 Body Temperature 98.4 [degF] Brook Vasquez RN [facility] Work Phone: 11-17-2015 12:50-0400 [...] Type Care Provider Facility Start: 03-25-2025 ambulatory [facility] Facility: [facility] Start: 03-22-2025 End: 03-22-2025 Refill Alysha Ascencio [facility] [place] Start: 01-30-2025 End: 01-30-2025 Office outpatient visit 25 minutes Isra Godfrey MD Work Phone: [facility] Comment on above: Racing heart beat (P rimary Dx); Essential hypertension Start: 01-30-2025 End: 01-30-2025 ambulatory ISRA GODFREY [facility] Start: 01-24-2025 End: 01-24-2025 Telephone encounter Salvador Arshad MD Work Phone: Neurology Comment on above: Appointment (01/24/25 Appt Issue) Start: 01-24-2025 ambulatory SALVADOR Romero ity:[facility] Start: 01-17-2025 End: 01-17-[address] Ramesh Coffey DO Work Phone: -Laboratory [place] [facility] Start: 01-17-2025 End: 01-17-[address] Kala Solares MD -[facility] Start: 01-17-2025 End: 01-17-2025 ambulatory [facility] Facility:[facility] Start: 01-14-2025 End: 01-14-[address] Ramesh Coffey DO Work Phone: -Sleep Lab Start: 01-14-2025 End: 01-14-[address] Kala Solares MD -Sleep Lab Work Phone: Start: 01-14-2025 End: 01-14-2025 ambulatory [facility] Facility:[facility] Start: 01-10-2025 End: 01-10-2025 Subsequent hospital visit by physician Kate Hernandez APRN - [facility] Work Phone: [facility] Non-Invasive Cardiology Comment on above: Palpitations; Racing heart beat; Yesica-Danlos syndrome type III; Near syncope; Essential hypertension; Shortness of breath Start: 01-10-2025 End: 01-10-2025 ambulatory [facility] Start: 01-08-2025 End: 01-08-2025 ambulatory [facility] Start: 01-08-2025 End: 01-08-2025 Office outpatient visit 25 minutes Kate Hernandez APRN - DIRECTOR OF DISTANCE LEARNING Work Phone: [facility] [employer] [place] Comment on above: Palpitations (Primar y Dx); Racing heart beat; Yesica-Danlos syndrome type III; Near syncope; Essential hypertension; Shortness of breath Start: 01-07-2025 End: 01-07-2025 Telephone encounter Isra Godfrey MD Work Phone: [facility] [employer] [place] Comment on above: Other (Awaking durin g the night, increased heart rate, increased BP ) Start: 12-10-2024 End: 12-10-2024 Office outpatient new 45 minutes Isra Godfrey MD Work Phone: [facility] [place] Comment on above: Near syncope (Primar y Dx); Essential hypertension; Racing heart beat; Yesica-Danlos syndrome type III Start: 12-10-2024 End: 12-10-2024 ambulatory [facility] Start: 12-05-2024 ambulatory [facility] Facility: [facility] Start: 12-05-2024 Non-patient / Non-visit Dr. Alejandro Lugo MD -[facility] Start: 12-05-2024 End: 12-05-2024 ambulatory Nat[employer]adEBOOKAPLACE PA-C Work Phone: -[facility] Start: 12-05-2024 End: 12-05-[address] Anay Lugo MD -[facility] Work Phone: Start: 12-04-2024 End: 12-04-2024 ambulatory Natividad Hills PA-C Work Phone: -Cat Scan [facility] Start: 12-04-2024 End: 12-04-[address] Kala Solares MD -Cat Scan [facility] Work Phone: Start: 12-04-2024 End: 12-05-2024 ambulatory NatividadEBOOKAPLACE PA-C Work Phone: -Laboratory Start: 12-04-2024 End: 12-04-[address] Kala Solares MD -Laboratory Work Phone: Start: 12-04-2024 Non-patient / Non-visit Dr. Meg parikh MD -[facility] Work Phone: Start: 12-04-2024 End: 12-04-2024 ambulatory [facility] Facility:[facility] Start: 11-30-2024 End: 11-30-[address] Anay Lugo MD -[facility] Work Phone: Start: 11-30-2024 End: 11-30-2024 ambulatory Natividad Goldsboro PA-C Work Phone: [facility] Work Phone: Start: 11-27-2024 Non-patient / Non-visit Dr. Nicole COLLINS -[facility] Start: 11-27-2024 End: 11-27-2024 ambulatory Natividad G[place] PA-C Work Phone: -Cardiovascular Services Start: 11-27-2024 End: 11-27-[address] Kala Solares MD -Cardiovascular Services Work Phone: Start: 11-26-2024 End: 11-27-2024 ambulatory Natividad G[place] PA-C Work Phone: -Outpatient Breast Imaging Start: 11-26-2024 End: 11-26-[address] Kala Solares MD -Outpatient Breast Imaging Work Phone: Start: 11-26-2024 End: 11-26-2024 ambulatory Kala Solares Facility:[facility] Start: 11-05-2024 End: 11-05-2024 Emergency department patient visit Natividad G[place]boro PA-C Work Phone: -Emergency Department Work Phone: Start: 10-31-2024 End: 10-31-2024 Emergency department patient visit Natividad G[place] PA-C Work Phone: -Emergency Department Work Phone: Start: 10-26-2024 End: 10-26-2024 Emergency department patient visit Natividad [place] PA-C Work Phone: -Emergency Department Work Phone: Start: 09-06-2024 End: 09-06-2024 ambulatory [facility] PA-C Work Phone: [facility] Work Phone: Start: 09-06-2024 End: 09-06-2024 Patient encounter procedure Elinor SEO -Laboratory, Specimen Work Phone: Start: 09-06-2024 End: 09-06-2024 ambulatory Natividad COMBS Facility:[facility] Start: 03-15-2024 ambulatory [facility] Start: 11-16-2023 End: 11-16-2023 Patient encounter procedure Lc Krishnan MD Work Phone: [facility] Comment on above: Paronychia of great toe of right foot (Primary Dx); Pediculosis capitis Start: 10-06-2023 End: 10-06-2023 ambulatory JANNETH COMBS Work Phone: [facility] Work Phone: Start: 10-06-2023 End: 10-06-2023 Patient encounter procedure JANNETH COMBS Work Phone: [facility]-Laboratory, Specimen Work Phone: Start: 10-06-2023 End: 10-06-2023 Patient encounter procedure JANNETH COMBS Work Phone: [facility] Work Phone: Start: 03-22-2023 End: 03-22-2023 ambulatory [facility] Work Phone: Start: 03-22-2023 End: 03-22-2023 Patient encounter procedure [facility]Laboratory, [place] Work Phone: Start: 11-18-2022 End: 11-18-2022 ambulatory [facility] Work Phone: Start: 11-18-2022 End: 11-18-2022 Discharged Recurring [facility]-Physical Therapy Work Phone: Start: 09-30-2022 Registered Recurring JANNETH COMBS Work Phone: [facility]-Physical Therapy Start: 09-27-2022 End: 09-27-2022 ambulatory PA-C Natividad Yee PA Work Phone: [facility] Work Phone: Start: 09-27-2022 End: 09-27-2022 Patient encounter procedure PA-C Natividad Yee PA Work Phone: [facility]-Outpatient Breast Imaging Start: 08-19-2022 Registered Recurring PA-Zeke Yee PA Work Phone: [facility]-Physical Therapy Start: 08-17-2022 End: 08-17-2022 ambulatory PA-C Natividad Yee PA Work Phone: [facility] Work Phone: Start: 08-17-2022 End: 08-17-2022 Patient encounter procedure PA-Zeke Yee PA Work Phone: [facility]-Laboratory Start: 08-13-2022 ambulatory Salvador pham MD Work Phone: Neurology Comment on above: pain psychology Start: 08-13-2022 E-mail encounter fahad m caregiver Salvador Arshad MD Work Phone: [facility] Start: 08-12-2022 End: 08-12-2022 Patient encounter procedure [...] Neur Stro (Max Weight: 300) Work Phone: [facility] Start: 08-05-2022 Telephone encounter Salvador Arshad MD Work Phone: Neurology Comment on above: Forms ([employer] ) Start: 07-26-2022 Registered Recurring JANNETH COMBS Work Phone: [facility]-Physical Therapy Start: 07-20-2022 End: 07-20-2022 Orders Only Priscila Umaña Work Phone: Neurology Comment on above: Chronic left-sided l umbar radiculopathy (Primary Dx) Start: 07-20-2022 End: 07-20-2022 Patient encounter procedure PARadha COMBS Work Phone: [facility]-Laboratory Start: 06-21-2022 Non-patient / Non-visit JANNETH COMBS Work Phone: [facility] Start: 06-21-2022 End: 06-21-2022 ambulatory PA-Zeke COMBS Work Phone: [facility] Work Phone: Start: 06-21-2022 End: 06-21-2022 Patient encounter procedure PA-Zeke COMBS Work Phone: [facility]-Cardiovascula r Services Start: 11-30-2021 Telephone encounter Latoya cifuentes PA-C Work Phone: [facility] Comment on above: Prescription Request to Different Pharmacy Start: 11-30-2021 End: 11-30-2021 Patient encounter procedure Latoya Clement PA-C Work Phone: [facility] Comment on above: Hordeolum externum o f right upper eyelid (Primary Dx) Start: 11-24-2021 Telephone encounter No Pcp [facility] [place] Comment on above: Results Start: 11-24-2021 End: 11-24-2021 Patient encounter procedure Palak Velazco APRN.DIRECTOR OF DISTANCE LEARNING Work Phone: [facility] Comment on above: Close exposure to [place] VID-19 virus (Primary Dx) Start: 11-09-2021 End: 11-09-2021 Patient encounter procedure JANNETH COMBS Work Phone: [facility] Start: 11-07-2021 End: 11-07-2021 Emergency department patient visit JANNETH COMBS Work Phone: [facility]-Emergency Department Start: 08-24-2021 Non-patient / Non-visit JANNETH COMBS Work Phone: [facility] Start: 08-24-2021 End: 08-24-2021 Emergency department patient visit JANNETH COMBS Work Phone: [facility]-Emergency Department Procedures Date Procedure Procedure Detail Performing [...] - 214.0 Postmenopausal 0.0 - 0.1Performed at: [address], [place] [id number] Director: Kalpesh Thompson PhD, Phone: [phone] Start: 01-17-[address] Kwame Coffey DO Work Phone: Comment on above: Thyroglobulin Antibody measured by Zack almanzar CoulterMethodologyIt should be noted that the presence of thyroglobulinantibodies may not be pathogenic nor diagnostic, especiallyat very low levels. The assay home demonstration agent has found thatfour percent of individuals without evidence of thyroiddisease or autoimmunity will have positive TgAb levels upto 4 IU/mL.Performed at: [facility] [place] [id number] [place], [place] [id number] Director: Kalpesh Thompson PhD, Phone: [phone] Start: 01-08-2025 Ecg routine ecg w/least 12 lds w/i&r Julienne Skinner MD Work Phone: Start: 12-10-2024 Ecg routine ecg w/least 12 lds w/i&r Isra Godfrey MD Work Phone: Start: 12-05-2024 Ultrasonography guided biopsy of breast Natividad [place] PA-C Work Phone: Start: 12-05-2024 US Breast Bx EA Add Lesion Natividad Cornell s PA-C Work Phone: Start: 12-04-2024 CT of abdominal vascular structures [facility] PA-C Work Phone: Start: 12-04-2024 Aldosterone measurement, serum Dr. Ramesh Coffey DO Work Phone: Comment on above: Performed at: [address] [id number] Director: Dagoberto Moon MD, Phone: [phone] Start: 12-04-2024 Procedure Natividad [place] PA-C Work Phone: Comment on above: Test Ordered: [id number] Metanephrines, Frac ., Pl. FreeTest(s) 715562-Xckkemnofafqiic, Pl; 128476-Cdyqaiyyntzo, Plwas developed and its performance characteristicsdetermined by [employer]. It has not been cleared or approvedby the Food and Drug Administration.Normetanephrine, Pl 72.0 pg/mL BN Reference Range: 0.0-244.0Metanephrine, Pl 25.8 pg/mL BN Reference Range: 0.0-88.0Performed at: BN - Lab[address] [id number] Director: Dagoberto Moon MD, Phone: [phone] at: [address] [id number] Director: Kalpesh Thompson PhD, Phone: [phone] Start: 11-27-2024 CT angiography of coronary [facility] [employer] Work Phone: Start: 11-26-2024 End: 11-26-2024 [facility] [employer] Work Phone: Start: 11-26-2024 Ultrasonography of breast [facility] [employer] Work Phone: Start: 11-05-2024 X-ray of chest, PA and lateral views [facility] [employer] Work Phone: Start: 11-05-2024 [facility]er [facility], [facility] [employer] Work Phone: Comment on above: NORMAL D-Dimer level (<0.50) indicates n o DVT or PE. Start: 11-05-2024 Estimated creatinine clearance Natividad Jambo-C Work Phone: Start: 10-31-2024 [facility]ad[facility] [employer] Work Phone: Start: 10-31-2024 Estimated [facility] [employer] Work Phone: Start: 10-26-2024 Urnls dip stick/tablet reagent auto microscopy [facility] [employer] Work Phone: Start: 10-26-2024 Estimated creatinine clearance [facility] [employer] Work Phone: Start: 10-06-2023 Genital Culture PA-Zeke [...] Brook Vasquez RN Start: 04-19-2007 Josseline Velazco APRN.[facility] Work Phone: Plan of Treatment Date Care Activity Detail Author Start: 2048 RSV Immunization for Adults (1 - 1-dose 75+ series) RSV Immunization for Adults (1 - 1-dose 75+ series) [facility] Start: 01-30-2026 Depression Screening Depression Screening [facility] Start: 11-26-2025 Screening for malignant neoplasm of breast Mammogram [facility] Start: 02-04-2025 COVID-19 Vaccine ( season) COVID-19 Vaccine () [facility] Start: 02-04-2025 Influenza vaccination Influenza Vaccine (#1) [facility] Start: 01-30-2025 End: 01-30-2025 Patient encounter procedure 01/30/2025 3:00 PM EDT Office Visit [facility] 1 [facility] [place] [address] [place] [address] Isra Godfrey MD 1 [facility] [place] [address] [place] [address] [facility] [place] Start: 01-29-2025 End: 01-29-2025 Patient encounter procedure 01/29/2025 11:00 AM EDT Office Visit [facility] [place] 1 [facility] [place] [address] [place] [phone] Anitha Rosa APRN - CNP 1 [facility] [place] [address] [place] [address] [facility] Start: 01-17-2025 [facility] Start: 01-10-2025 End: 01-10-2025 Patient encounter procedure 01/10/2025 10:00 AM EDT Appointment [facility] Non-Invasive Cardiology [address] [place] [phone] Kate Hernandez APRN - CNP 1 [facility] [address] [place] [address] [facility] Non-Invasive Cardiology Start: 01-08-2025 End: 01-08-2027 Cardiac holter monitor (8- 15 days) Cardiac holter monitor (8- 15 days) [facility] Routine Palpitations Racing heart beat Yesica-Danlos syndrome type III Near syncope Essential hypertension Shortness of breath Expected: 01/08/2025, Expires: 01/08/2027 [facility] Work Phone: Comment on above: Expected: 01/08/2025, Expires: Start: 01-08-2025 End: 01-08-2025 Patient encounter procedure 01/08/2025 10:00 AM EDT Office Visit [facility] [place] 1 [facility] [place] [address] [place] [phone] Kate Hernandez APRN - CNP 1 [facility] [address] [place], [place] [id number] [facility] [place] Start: 11-05-2024 [facility] Start: 11-05-2024 [facility] Start: 10-31-2024 [facility] Start: 10-26-2024 [facility] Start: 10-26-2024 [facility] Start: 02-05-2024 COVID-19 Vaccine ( season) COVID-19 Vaccine ( season) [facility] Start: 02-05-2024 Influenza vaccination Influenza Vaccine (Season Ended) [facility] Start: 08-06-2023 DIABETES SCREEN DIABETES SCREEN [facility] Start: 08-06-2023 Diabetes Screening Diabetes Screening [facility] Start: 06-06-2023 Behavioral Health Screening Behavioral Health Screening [facility] Start: 2023 Pneumococcal Vaccine: 50+ (1 of 1 - PCV) Pneumococcal Vaccine: 50+ (1 of 1 - PCV) [facility] Start: 2023 Pneumococcal Vaccine: 50+ Years (1 of 1 - PCV) Pneumococcal Vaccine: 50+ Years (1 of 1 - PCV) [facility] Start: 2023 Shingrix Vaccine (1 of 2) Shingrix Vaccine (1 of 2) [facility] Start: 2023 Zoster Vaccines (1 of 2) Zoster Vaccines (1 of 2) [facility] Start: 02-04-2023 Covid-19 Vaccine ( season) Covid-19 Vaccine ( season) [facility] Start: 08-17-2022 Procedure [facility] Start: 06-06-2022 DEPRESSION ASSESSMENT DEPRESSION ASSESSMENT [facility] Start: 02-04-2022 Influenza vaccination [facility] Start: 11-24-2021 End: 12-08-2021 Influenza virus A and B RNA and SARS-CoV-2 (COVID-19) N gene panel - Respiratory specimen by KEYSHA with probe detection [facility] Work Phone: Comment on above: Expected: 11/24/2021, Expires: Start: 2018 COLOGUARD (FIT-DNA) COLOGUARD (FIT-DNA) [facility] Start: 2018 Colonoscopy COLONOSCOPY [facility] Start: 2018 COLORECTAL CANCER SCREENING COLORECTAL CANCER SCREENING [facility] Start: [address] COLONOGRAPHY [facility] Start: 2018 FECAL OCCULT BLOOD FECAL OCCULT BLOOD [facility] Start: 2018 Lipid panel Lipid Screening [facility] Start: 2018 LIPID SCREEN LIPID SCREEN [facility] Start: 2018 Screening for malignant neoplasm of colon [facility] Start: 2018 SIGMOIDOSCOPY SIGMOIDOSCOPY [facility] Start: 02-10-2017 End: 02-10-2017 Xtrnl mobile cv telemetry w/i&report 30 days 30 Day Holter Monitor That{img} Work Phone: Start: 11-17-2015 End: 11-17-2015 *CMP Complete Metabolic Panel *CMP Complete Metabolic Panel That{img} Work Phone: Start: 11-17-2015 End: 11-17-2015 Hemoglobin A1c/Hemoglobin.total mass fraction (Bld) *HgA1C That{img} Work Phone: Start: 11-17-2015 End: 11-17-2015 Lipid 1996 panel *Lipid Profile That{img} Work Phone: Start: 11-17-2015 End: 11-17-2015 Mammogram, screening Mammogram, Screening, both breasts That{img} Work Phone: Start: 11-17-2015 End: 11-17-2015 T3 free mass conc *T3-Free That{img} Work Phone: Start: 11-17-2015 End: 11-17-2015 T4 free mass conc *T4 free That{img} Work Phone: Start: 11-17-2015 End: 11-17-2015 Thyroglobulin mass conc *ATAB - Thyroglobulin Antibody That{img} Work Phone: Start: 11-17-2015 End: 11-17-2015 Thyrotropin Qn *TSH That{img} Work Phone: Start: 2013 Mammography MAMMOGRAM [facility] Start: 2013 Screening for malignant neoplasm of breast [facility] Start: 2003 HPV TESTING HPV TESTING [facility] Start: 2003 Screening for malignant neoplasm of cervix [facility] Start: 1994 PAP TESTING PAP TESTING [facility] Start: 1994 Screening for malignant neoplasm of cervix [facility] Start: 1992 DTaP/Tdap/Td Vaccines (1 - Tdap) DTaP/Tdap/Td Vaccines (1 - Tdap) [facility] Start: 1992 Hepatitis B Vaccine (1 of 3 - 19+ 3-dose series) Hepatitis B Vaccine (1 of 3 - 19+ 3-dose series) [facility] Start: 1992 Hepatitis B Vaccines (1 of 3 - 19+ 3-dose series) Hepatitis B Vaccines (1 of 3 - 19+ 3-dose series) [facility] Start: 1992 Urine microalbumin profile [facility] Start: 1991 Anxiety Screening Anxiety Screening [facility] Start: 1991 Depression Screening Depression Screening [facility] Start: 1991 Diabetes mellitus screening Diabetes Screening [facility] Start: 1991 HEPATITIS C SCREENING HEPATITIS C SCREENING [facility] Start: 1991 Hepatitis C screening Hepatitis C Screening [facility] Start: 1991 HIV SCREENING HIV SCREENING [facility] Start: 1991 HIV screening HIV Screening [facility] Start: 1985 Adult depression screening assessment DEPRESSION SCREENING [facility] Start: 1978 COVID-19 VACCINE (#1) COVID-19 VACCINE (#1) [facility] Start: 1974 MMR Vaccines (1 of 1 - Standard series) MMR Vaccines (1 of 1 - Standard series) [facility] Start: 1973 COVID-19 VACCINE (#1) COVID-19 VACCINE (#1) [facility] Start: 1973 HEPATITIS B (1 of 3 - 3-dose series) HEPATITIS B (1 of 3 - 3-dose series) [facility] Start: 1973 HIV screening HIV Screening [facility] Start: 1973 Lipid panel Lipid Panel [facility] Start: 1973 Screening for malignant neoplasm of colon [facility] Aldosterone [Mass/vo lume] in Serum or Plasma [facility] End: 01-10-2025 Cardiac holter monitor (8- 15 days) [facility] Work Phone: Comment on above: Once for 1 Occurrences starting 01/11/20 until 01/10/2025 Dehydroepiandrostero ne sulfate (DHEA-S) [Mass/volume] in Serum or Plasma [facility] End: 07-20-2023 EMG(NEURO/NI) EMG(NEURO/NI) EMG Routine Chronic left-sided lumbar radiculopathy 1 Occurrences starting 07/20/2022 until 07/20/2023 [facility] Work Phone: Comment on above: 1 Occurrences starting 07/20/2022 until 07/20/2023 Patient Education [facility] Work Phone: Patient referral [facility] Work Phone: Renin [Enzymatic activity/volume] in Plasma [facility] Thyroglobulin antibo dy measurement [facility] Thyroperoxidase Ab [Units/volume] in Serum or Plasma [facility] Payers Date Payer Category Payer Unknown [id number] 2024 Self-pay [id number] 2023 Commercial Managed [facility] [id number] 2022 Private Health Insurance [facility] SELF PAY [id number] 2022 Unknown [id number] 2021 Unknown [id number] 2019 Unknown [employer] PPO [id number] 2019-Present [phone] [address] [place] [address] PPO [id number] 2019 Unknown [id number] 1973 Unknown [id number] 2.16.840.1.568195.3.579. 2.651 Unknown [id number] 2.16.840.1.135711.3.579. 2.462 Unknown [id number] 2.16.840.1.573276.3.579. 2.462 Unknown [id number] 2.16.840.1.816028.3.579. 2.462 Unknown [id number] 2.16.840.1.415303.3.579. 2.462 Unknown [id number] 2.16.840.1.223805.3.579. 2.462 Unknown [id number] 2.16.840.1.728314.3.579. 2.462 Unknown [id number] 2.16.840.1.801693.3.579. 2.462 Unknown [id number] 2.16.840.1.023706.3.579. 2.462 Unknown [id number] 2.16.840.1.951269.3.579. 2.462 Unknown [id number] 2.16.840.1.916256.3.579. 2.462 Unknown [id number] 2.16.840.1.141266.3.579. 2.462 Unknown [id number] 2.16.840.1.848199.3.579. 2.462 Unknown [id number] 2.16.840.1.091911.3.579. 2.462 Unknown [id number] 2.16.840.1.985049.3.579. 2.462 Unknown [id number] 2.16.840.1.032417.3.579. 2.462 Unknown [id number] 2.16.840.1.591938.3.579. 2.462 Unknown [id number] 2.16.840.1.151093.3.579. 2.462 Unknown [id number] 2.16.840.1.102163.3.579. 2.462 Social History Date Type Detail Facility [facility] Work Phone: Start: 08-24-2021 End: 11-07-2021 Tobacco smoking status CAIS Unknown if ever smoked [facility] Start: 11-27-2019 Non-smoker [facility] Start: 1975 Sex Assigned At Female [facility] Start: 11-12-2016 End: 12-10-2024 Tobacco smoking status NHIS Never smoked tobacco [facility] Work Phone: History of tobacco use Cigarette Smoker C [facility] Work Phone: Start: 11-12-2016 End: 12-10-2024 Tobacco use and exposure Smokeless tobacco non-user [facility] Work Phone: Start: 11-24-2021 End: 11-16-2023 Alcohol intake Current non-drinker of alcohol (finding) [facility] Start: 11-14-2021 End: 11-24-2021 Exposure to SARS-CoV-2 (event) Yes [facility] Work Phone: Start: 11-20-2021 End: 11-30-2021 Exposure to SARS-CoV-2 (event) Not sure [facility] Work Phone: Start: 11-16-2023 End: 01-30-2025 History of Social function [facility] Start: 11-16-2023 End: 01-30-2025 Tobacco use panel [facility] Work Phone: Start: 05-07-2012 National Score (1-10 0), lower number is lower risk 71 [facility] Start: 07-22-2020 Gender identity Identifies as female gender (finding) [facility] Start: 07-22-2020 Sexual orientation Heterosexual (fin ding) [facility] Start: 01-04-2022 End: 09-11-2024 Sex Female (finding) [facility] Start: 01-08-2025 End: 01-30-2025 Alcoholic beverage intake Ex-drinker (finding) [facility] Functional Status Date Assessment Result Facility 01-30-2025 Patient Health Quest ionnaire 2 item (PHQ-2) [Reported] [facility] 07-15-2014 Are you deaf, or do you have serious difficulty hearing No 07/15/2014 4:28 PM EST Anitha Alvarez LPN No [facility] 07-15-2014 Are you blind, or do you have serious difficulty seeing, even when wearing glasses No 07/15/2014 4:28 PM Anitha Velásquez LPN No [facility] 07-15-2014 Do you have serious difficulty walking or climbing stairs No 07/15/2014 4:28 PM Anitha Velásquez LPN No [facility] 07-15-2014 Do you have difficul ty dressing or bathing No 07/15/2014 4:28 PM Anitha Velásquez LPN No [facility] 07-15-2014 Because of a physica l, mental, or emotional condition, do you have difficulty doing errands alone such as visiting a physician's office or shopping No 07/15/2014 4:28 PM Anitha Velásquez LPN No [facility] Mental Status Date Assessment Result Facility 11-05-2024 Cognitive function Level Of Cons ciousness Awake;Alert;Appropriate;Fol lows Commands [facility] Work Phone: 10-31-2024 Cognitive function Level Of Cons ciousness Awake;Alert;Appropriate;Fol lows Commands [facility] Work Phone: 07-15-2014 Because of a physica l, mental, or emotional condition, do you have serious difficulty concentrating, remembering, or making decisions No 07/15/2014 4:28 PM Anitha Velásquez LPN No [facility] Clinical Notes 11-24-2021 to 03-22-2025 Telephone [...] has concerns about their knowledge/ability compared to [facility] doctors so she would prefer our office [...] had no further questions at this time. [facility] 03-22-2025 Miscellaneous Notes Called patient to discuss [...] has concerns about their knowledge/ability compared to [facility] doctors so she would prefer our office [...] refills. Please call documented in this encounter [facility] 03-22-2025 Telephone encounter Note Pt is calling in with questions regarding medications and refills. Please call [facility] 01-30-2025 Evaluation + Plan note Associated Problem(s): Racing heart beat Etiology unclear. In setting of sleep disruption and uncontrolled Htn. Probable sinus tach based on prior monitors but formally need to confirm. -Continue BP mgt -F/u EM report. [facility] 01-30-2025 Evaluation + Plan note Associated Problem(s): [...] (eval for atherosclerotic GUERRERO or fibromuscular dysplasia). [facility] 01-30-2025 History of Presen t illness Narrative Images from the original note were not included. [facility] [place] [address] [facility] [address] [facility] [address] Dept: [phone] Dept Visit type: Established : 1975 Reason [...] met Dr. Godfrey 12/2024. Had treatment in [place]. Had trouble getting in to see cardiology so is here in [facility] for this. Had a lot of stressors [...] Had a primary care physician and a charter coordinator providing care but no longer doing so [...] Mostly for her back. Began seeing a charter coordinator who prescribed her ivermectin for inflammation and [...] HR elev 150 bpm. Went back to [place] ED. Took an EKG and test, and troponin. All of which were negative. Then 3rd visit to [place] ED. Feeling something's wrong. Repeated troponin, D-dimer. [...] this could be important to understand her long term care administrator course. Patient tells me that pheochromocytoma was evaluated and negative. Uncle is a airborne electronics analyst and functional medicine doc Pt reportedly treated [...] sleep is an important part of her prison health and allows proper exercise. Toprol 75 [...] Father Hypertension Brother documented in this encounter [facility] [employer] 01-30-2025 Miscellaneous Notes Associated Problem(s): Racing heart [...] or fibromuscular dysplasia). documented in this encounter [facility] [employer] 01-24-2025 Telephone encounter Note Patient checked in at the front end web developer at 12:08 for [...] remaining time. She was advised to reschedule. [facility] Work Phone: 01-24-2025 Miscellaneous Notes Patient checked in at the front end web developer at 12:08 for [...] to report the situation. Pt called a [facility] number (unsure where) and was routed to our office. Apologized for the experience today. Offered to reschedule with another provider at a different location. Pt declined. Escalated the situation to Lucy Cook for follow up. EA documented in this encounter [facility] 01-24-2025 Telephone encounter Note Pt called [...] to report the situation. Pt called a [facility] number (unsure where) and was routed to our office. Apologized for the experience today. Offered to reschedule with another provider at a different location. Pt declined. Escalated the situation to Lucy Cook for follow up. EA [facility] 01-08-2025 History of Presen t illness Narrative Images from the original note were not included. [facility] [address] [facility] [address] Dept: [phone] Dept Visit type: New : 1975 Reason [...] unless she is orthostatic, dizzy, syncopal. 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 She has episodes where she wakes up [...] met Dr. Godfrey 12/2024. Had treatment in [place]. Had trouble getting in to see cardiology so is here in [facility] for this. Had a lot of stressors [...] Had a primary care physician and a charter coordinator providing care but no longer doing so [...] Mostly for her back. Began seeing a charter coordinator who prescribed her ivermectin for inflammation and [...] HR elev 150 bpm. Went back to [place] ED. Took an EKG and test, and troponin. All of which were negative. Then 3rd visit to [place] ED. Feeling something's wrong. Repeated troponin, D-dimer. [...] this could be important to understand her long term care administrator course. Patient tells me that pheochromocytoma was [...] symptoms; this started 01/03. Uncle is a airborne electronics analyst and functional medicine doc Pt reportedly treated [...] Father Hypertension Brother documented in this encounter [facility] 01-07-2025 Telephone encounter Note Scheduled tomorrow at 10 am [facility] 01-07-2025 Miscellaneous Notes Scheduled tomorrow at 10 am I called and told Veronica that Kate has openings this week. Veronica is agreeable if she can get a ride. She will talk to the office secretary to get an appointment. I spoke [...] the 12/10/24 visit. documented in this encounter [facility] 01-07-2025 Telephone encounter Note I called and told Veronica that Kate has openings this week. Veronica is agreeable if she can get a ride. She will talk to the office secretary to get an appointment. [facility] 01-07-2025 Telephone encounter Note I spoke with [...] his office note from the 12/10/24 visit. [facility] 12-10-2024 Evaluation + Plan note Associated Problem(s): Racing heart beat Etiology unclear. In setting of sleep disruption and uncontrolled Htn. -Stabilize BP mgt -F/u in cardiology office; if still having unexplained tachycardia then would ck EM. [facility] 12-10-2024 Miscellaneous Notes Associated Problem(s): Racing heart [...] or fibromuscular dysplasia). documented in this encounter [facility] 12-10-2024 Evaluation + Plan note Associated Problem(s): [...] of EDS such as vEDS or kEDS. [facility] [employer] 12-10-2024 Evaluation + Plan note Associated Problem(s): [...] could predispose her to this; expectant mgt. [facility] [employer] 12-10-2024 Evaluation + Plan note Associated Problem(s): [...] (eval for atherosclerotic GUERRERO or fibromuscular dysplasia). [facility] 12-10-2024 Radiology Diagnostic study note [facility] Imaging Services [address] [place] [address] US Breast Biopsy 1st Lesion MR#: [id number] Acct: [id number] Name: VERONICA UMAÑA Rep #: [id number] : 1975 F 49 From: Toñito Gonsalez MD PCP: Dr. Kala Solares MD Status: REG CLI Study:US Breast Biopsy 1st Lesion Date of Exa m: 12/05/24 Exam# [id number] Ordering Dr: Veronica Gupta PA-C PROCEDURE: US [...] - NEED ADDITIONAL IMAGING EVALUATION. Reading Location: [place] [address] CC: JANNETH Gupta; Dr. Kala Solares MD ~ Finance Business Manager: Signed [facility] 12-10-2024 History of Presen t illness Narrative Images from the original note were not included. [facility] - [address] [facility] [address] Dept: [phone] Dept Visit type: New : 1975 Reason [...] KATH. Subjective Referred; self. Had treatment in [place]. Had trouble getting in to see cardiology so is here in [facility] for this. Had a lot of stressors [...] Had a primary care physician and a charter coordinator providing care but no longer doing so [...] Mostly for her back. Began seeing a charter coordinator who prescribed her ivermectin for inflammation and [...] HR elev 150 bpm. Went back to [place] ED. Took an EKG and test, and troponin. All of which were negative. Then 3rd visit to [place] ED. Feeling something's wrong. Repeated troponin, D-dimer. [...] this could be important to understand her prison course. Veronica Umaña Review of Systems Constitutional: [...] Father Hypertension Brother documented in this encounter [facility] 12-06-2024 Procedure note [facility] 12-04-2024 Radiology Diagnostic study note [facility] Imaging Services [address] [place], [place] [address] CTA Abdomen W/WO Contrast MR#: [id number] Acct: [id number] Name: VERONICA UMAÑA Rep #: [id number] : 1975 F 49 From: Mamadou Cote MD PCP: Dr. Kala Solares MD Status: REG CLI Study:CTA Abdomen W/WO Contrast Date of Exam: 12/04/24 Exam# [id number] Ordering Dr: Ahsan Solares MD ADDENDUM by [...] vein, and right portal vein. Reading Location: [id number] 12/04/24 1623 Date cc: Dr. Kala Solares [...] lesion Enlarged likely fibroid uterus Reading Location: [facility] CC: Dr. Kala Solares MD ~ Finance Business Manager: Signed [facility] 11-30-2024 Evaluation note Diagnosis Onset Date Resolution Left breast mass acute November 8:46am [facility] Work Phone: 1(388) 619-596206-24-2025 Radiology Diagnostic study note [facility] Imaging Services [address] [place] [address] Cardiac Only MR#: [id number] Acct: [id number] Name: VERONICA UMAÑA Rep #: [id number] : 1975 F 49 From: Toñito Gonsalez MD PCP: Dr. Kala Solares MD Status: REG CLI Study:Limited Chest CT Cardiac Only Date of E xam: 11/27/24 Exam# [id number] Ordering Dr: Ahsan Solares MD PROCEDURE: LIMITED [...] significant coronary artery calcification seen. Reading Location: [id number] CC: Dr. Kala Solares MD ~ Finance Business Manager: Signed [facility]06-23-2025 Radiology Diagnostic study note [facility] Imaging Services [address] [place], [place] [id number] Breast Limited Unilateral MR#: [id number] Acct: [id number] Name: VERONICA UMAÑA Rep #: [id number] : 1975 F 49 From: Jose Angel Villalobos DO PCP: Dr. Kala Solares MD Status: REG CLI Study:Breast Limited Unilateral Date of Exam: 11/26/24 Exam# [id number] Ordering Dr: Ahsan Solares MD PROCEDURE: BREAST [...] SUSPICIOUS ABNORMALITY. RECOMMENDATION: Biopsy Recommended Reading Location: [id number] CC: Dr. Kala Solares MD ~ Finance Business Manager: Signed [facility]06-02-2025 Radiology Diagnostic study note [facility] Imaging Services [address] [place] [address] Chest PA and Lateral MR#: [id number] Acct: [id number] Name: VERONICA UMAÑA Rep #: [id number] : 1975 F 49 From: Victoria Becker MD PCP: Care Physician,No Primary Status: REG ER Study:Chest PA and Lateral Date of Exam: 11/05/24 Exam# [id number] Ordering Dr: Victor Hugo Mota DO PROCEDURE: CHEST PA AND LATERAL 11/05/2024 REASON FOR EXAM: CHEST PAIN TECHNIQUE: Frontal and lateral views of the chest. COMPARISON: None FINDINGS: Hardware: None Heart: The heart size is normal. Mediastinum: The mediastinal contour is unremarkable. Lungs: The lungs are clear. Bones: The bones are unremarkable. RAD/Chest PA and Lateral IMPRESSION: No acute cardiopulmonary abnormality. Reading Location: [id number] CC: Dr. Victor Hugo Suh DO; No Primary Care Physician ~ Finance Business Manager: Signed [facility]06-02-2025 Hospital Discharge instructions Additional Instructions Follow-up with [...] or during the afternoon if needed for anxiety.[facility] Work Phone: 1(878) 687-746005-28-2025 Discharge summary [facility] Medical Records Department [address] [place] [address] Emergency Department Summary 10/31/24 MR#: [id number] Acct: [id number] Name: VERONICA UMAÑA Rep #:[id number] : 1975 49 From: Jose Alexis MD PCP: Elinor Aguilar ARMOR RECONNAISSANCE SPECIALIST-C Status:RE G ER Location: ED HPI History [...] 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 Make sure you are taking your antihypertensives especially your metoprolol. Print Language: Nepalese Disposition Disposition: Home, Self Care What to do if you have Problems For any increased pain, shortness of breath, bleeding, nausea or vomiting, chestpain, or any unexpected problems, contact your Primary Care Provider. Call [facility] ([phone]) or report tothe closest Emergency Room. Call 911 if necessary. 10/31/24 1200 Cosigner Signature (if applicable): CC: ARMOR RECONNAISSANCE SPECIALIST-C Elinor Aguilar ~ Signed [facility]06-12-2024 History of Present illness Narrative* Lc Krishnan MD - 11/16/2023 9:40 AM EDT Patient presents with: Eye Problem: Right eye swelling and right big toe pain-from pedicure yesterday HPI: Skin Lesion: Location: right great toe medial border Duration: had a hang nail removed at the [facility] yesterday Pruritis/Pain: tender Drainage/blister/pustule/ulceration: redness, swelling, drainage [...] nits. Lc Krishnan MD documented [facility]08-[facility]23 Discharge summary Author Jessie Li [facility] February 03, 2023 9:43am Note Date/Time February 03, 2023 9: 43am [facility] Physical Therapy [facility] [address] [place] [address]. [address] [place] [address] / REHABILITATION SERVICES DISCHARGE SUMMARY MR#: [id number] Acct: [id number] Name: VERONICA UMAÑA Rep #: [id number] : 1975 47 From: Jessie Conrad Referring Dr.: Dr. Meg Sadler MD Status: REG R Insurance: [facility] [employer] Patient Information Patient Information: [...] Sadler MD; BRANDY SANTOS ~ ELR Signed [facility] Work Phone: 1(372) 334-625307-05-2023 Discharge summary Author Margaret Oliva [facility] December 08, 2022 11:10am Note Date/Time December 08, 2022 11:11 am [facility] Physical Therapy [facility] [address] [place] [address] / REHABILITATION SERVICES DISCHARGE SUMMARY MR#: [id number] Acct: [id number] Name: VERONICA UMAÑA Rep #: [id number] : 1975 47 From: Margaret Oliva MP T Referring Dr.: Dr. Meg Sadler MD Status: REG RCR Insurance: [facility] [employer] Patient Information Patient Information: [...] Meg Sadler MD; BRANDY DANIELLE ~ Signed [facility] Work Phone: [phone]) 177-568603-09-2023 Instructions* Patient Instructions* Salvador Arshad MD - 08/12/2022 2:51 PM EST Raul Hanson, healing back pain Use this link to send us a copy of your images from your home computer: [email or web address] To schedule an appointment with me, please call my office secretary Lynn at [phone]. documented in this encounterOhio Valley Hospital03-09-2023 History of Present illness Narrative* Salvador Arshad MD - 08/12/2022 2:01 PM EST HPI: This is Ms. Veronica Umaña a 47 year old female from who [facility] with a chief complaint of Referring provider: Priscila Umaña, [address] [place] [address] There is a history of Yesica danlos [...] tablet daily 0 GI-Revive 225 gram Powder (KiwiTech) Take 1 tablespoons twice daily (1 tablespoon [...] Rogers, et al. 2017 Guidelines of the [place] Thyroid Association for the Diagnosis and Management of Thyroid Disease during and the . Thyroid, 2017:27:3:315-389. Free T4 Date Value Ref Range Status 08/05/2020 1.3 0.9 - 1.7 ng/dL Final Hemoglobin A1C Date Value Ref Range Status 08/05/2020 5.5 4.3 - 5.6 % Final Comment: [place] Diabetes Association guidelines indicate that patients with [...] to the appropriate provider. documented in this encounterOhio Valley Hospital03-03-2023 Miscellaneous Notes* Telephone Encounter - Lynn Rodriguez Emg - 08/06/2022 2:12 PM EST Results from EMG performed on 08/05/22 were faxed to [facility] at fax number [phone] on 08/06/22. Fax confirmation received. documented in this encounterOhio Valley Hospital03-02-2023 History of Present illness Narrative* Lori [...] Patiño NCST Lori Patel DO Staff Neurologist [facility] [place] documented in this encounterOhio Valley Hospital03-02-2023 Miscellaneous Notes* Telephone Encounter - Veronica Zapata LPN - 08/05/2022 1:27 PM EST [employer] sent over a denial of coverage for out of network provider, spoke to patient andshe was made aware and want to keep appointment anyways. Forms sent for scanning in chart. documented in this encounterOhio Valley Hospital06-27-2022 Miscellaneous Notes* Telephone Encounter - aLtoya Clement PA-C - 11/30/2021 11:52 AM EDT [facility] now. * Telephone Encounter - Maureen Martinez RN - 11/30/2021 11:23 AM EDT [facility] and is calling to ask if Lat[facility] in [facility] would send [facility]lex and Bacitracin opth.ointment scripts [facility] in [place]? She states she may have accidentally told Latoya to send it to [facility] but does not use that pharmacy anymore. Thank you. Maureen Martinez RN documented in this encounterOhio Valley Hospital06-27-2022 History of Present illness Narrative* Latoya Clement PA-C - 11/30/2021 10:10 AM EDT Images from the original note were not included. This note was created using QThruter. Subjective Veronica Umaña is a 46 year [...] days. 15 capsule0 GI-Revive 225 gram Powder (KiwiTech) Take 1 tablespoons twice daily (1 tablespoon [...] D&C (MISSED AB 1ST TRIMESTER) 01/08/14 in [place] PAST SURGICAL HISTORY OF lap left shoulder [...] agreeable. Latoya Clement PA-C documented in this encounterOhio Valley Hospital06-22-2022 Miscellaneous Notes* Telephone Encounter - Lauren Aparicio - 11/25/2021 9:47 AM EDT faxed. Lauren Aparicio * Telephone Encounter - Elinor Jones LPN - 11/24/2021 11:29 AM EDT Pt reports she was in [facility] this morning to be seen and tested for Covid. Pt is requesting that results be faxed to Dr. Layne when they become available. Elinor Jones LPN documented in this encounterOhio Valley Hospital06-21-2022 History of Present illness Narrative* Palak Velazco APRN.DIRECTOR OF DISTANCE LEARNING - 11/24/2021 11:02 AM EDT CC: Patient [...] D&C (MISSED AB 1ST TRIMESTER) 01/08/14 in [place] PAST SURGICAL HISTORY OF lap left shoulder torn labrum repair TONSILLECTOMY PRIMARY/SECONDARY <AGE 10 2004 Tonsillectomy ALLERGIES Cipro [Ciprofloxacin], Cymbalta [Duloxetine], Levoquin [Levofloxacin], Paba [P-Aminobenzoic Acid], Sulfa (Sulfonamide Antibiotics), and Z Pack [Azithromycin] MEDICATIONS Magnesium Citrate 150mg 90 ct[address] (Pure Encapsulations) Take 3 capsules daily. GI-Revive 225 gram Powder (KiwiTech) Take 1 tablespoons twice daily (1 tablespoon [...] plan. 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 Make sure you are taking your antihypertensives especially your metoprolol. Print Language: Nepalese Disposition Disposition: Home, Self Care What to do if you have Problems For any increased pain, shortness of breath, bleeding, nausea or vomiting, chestpain, or any unexpected problems, contact your Primary Care Provider. Call [facility] ([phone]) or report to the closest Emergency Room. Call 911 if necessary. 10/31/24 1200 <Electronically signed by Jose Alexis MD> Cosigner Signature (if applicable): CC: ARMOR RECONNAISSANCE SPECIALIST-C Elinor Aguilar ~ Signed [facility] Work Phone: Evaluation noteNo assessment information available [facility] Work Phone: Evaluation note* Diagnosis Close exposure to COVID-19 virus- Primary documented in this encounter [facility] note* Diagnosis Hordeolum externum of right upper eyelid- Primary Hordeolum externum documented in this encounter [facility] note* Diagnosis Chronic left-sided lumbar radiculopathy- Primary documented in this encounter [facility] note* Diagnosis Pain in left leg- Primary Chronic left-sided lumbar radiculopathy [facility]* Diagnosis Chronic left-sided low back pain with left-sided sciatica- Primary documented in this encounter [facility] note* Diagnosis Onset Date Resolution Status Inclusion cyst of vulva none active Vaginitis noneactive [facility] Work Phone: Evaluation note* Diagnosis Paronychia of great toe of right foot- Primary Onychia and paronychia of toe Pediculosis capitis Pediculus capitis (head louse) documented in this encounter [facility] note* Diagnosis Near syncope- Primary Essential hypertension Unspecified essential hypertension Racing heart beat Unspecified tachycardia Yesica-Danlos syndrome type III Yesica-Danlos syndrome documented in this encounter [facility] note* Diagnosis Near syncope- Primary Essential hypertension Unspecified essential hypertension Racing heart beat Unspecified tachycardia Yesica-Danlos syndrome type III Yesica-Danlos syndrome Palpitations- Primary Racing heart beat Unspecified tachycardia Yesica-Danlos syndrome type III Yesica-Danlos syndrome Near syncope Essential hypertension Unspecified essential hypertension Shortness of breath [facility]* Diagnosis Near syncope- Primary Essential hypertension Unspecified essential hypertension Racing heart beat Unspecified tachycardia Yesica-Danlos syndrome type III Yesica-Danlos syndrome Palpitations Racing heart beat Unspecified tachycardia Yesica-Danlos syndrome type III Yesica-Danlos syndrome Near syncope Essential hypertension Unspecified essential hypertension Shortness of breath [facility]* Diagnosis Near syncope- Primary Essential hypertension Unspecified essential hypertension Racing heart beat Unspecified tachycardia Yesica-Danlos syndrome type III Yesica-Danlos syndrome Racing heart beat- Primary Unspecified tachycardia Essential hypertension Unspecified essential hypertension [facility] Discharge instructions Additional Instructions Follow-up with your primary care provider. Make sure you are taking your antihypertensives especially your metoprolol.[facility] Work Phone: Reason for referral (narrative)* Outpatient Procedure (Routine) - Pending Review Specialty Diagnoses / Procedures Referred By Mariaelena conrad Referred To [facility] Diagnoses Chronic left-sided lumbar radiculopathy Procedures EMG(NEURO/NI) NERVE CONDUCTION STUDIES 9-10 STUDIES Priscila Umaña [address] [place] [address] [facility] [place] [address] [place] [address] Referral ID Status Reason Start Date Expiration Date Visits Requested Visits Authorized [id number] Pending Review Auto-Generat ed Referral 07/20/2022 07/20/2023 1 1 [facility] for referral (narrative)No reason for referral information availableWKnox [facility] Work Phone: Reason for visit Narrative* Cardiology (Routine) - Closed Specialty Diagnoses / Procedures Referred By Mariaelena conrad Referred To Contact Cardiology Diagnoses Palpitations Racing heart beat Yesica-Danlos syndrome type III Near syncope Essential hypertension Shortness of breath Procedures Cardiac holter monitor (8- 15 days) CO EXTERNAL ECG REC>48HR<7D REVIEW & INTERPRETATION CO EXTERNAL ECG REC>48HR<7D RECORDING CO EXTERNAL ECG REC>7D<15D RECORDING CO EXTERNAL ECG REC>7D<15D REVIEW & INTERPRETATION Kate Hernandez, NATA - DIRECTOR OF DISTANCE LEARNING 1 [facility] [address] [place] [address] Phone: tel: fax: Referral ID Status Reason Start Date Expiration Date Visits Re quested Visits Authorized [id number] Closed 01/08/2025 01/03/2026 1 1 [employer] Summary Purpose Family History No Family History [...] Yes August 24, 2021 2:50pm Power of Construction Project Coordinator No August 24 2:50pm Advance Directive Response Recorded Date/ Time Living Will Yes November 07, 2021 5 :40pm Power of Construction Project Coordinator Yes November 07, 2021 5:40pm Advance Directive Response Recorded Date/ Time Living Will Yes November 07, 2021 4 :40pm Power of Construction Project Coordinator Yes November 07, 2021 4:40pm Advance Directive Response Recorded Date/ Time Do you have a Healthcare Power of Construction Project Coordinator? No October 31, 2024 7:27am Do you have a Healthcare Power of Construction Project Coordinator? No October 26, 2024 5:30am Advance Directive Response Recorded Date/ Time Do you have a Healthcare Power of Construction Project Coordinator? No October 31, 2024 7:27am Do you have a Healthcare Power of Construction Project Coordinator? No November 05, 2024 3:35pm Do you have a Healthcare Power of Construction Project Coordinator? No October 26, 2024 5:30am Chief Complaint [...] DATE CREATED AUTHOR AUTHOR'S ORGANIZ ATION 03/17/2024 [facility] DATE CREATED AUTHOR AUTHOR'S ORGANIZ ATION 01/26/[address] [facility] DATE CREATED AUTHOR AUTHOR'S ORGANIZ ATION 03/24/2025 [facility] DATE CREATED AUTHOR AUTHOR'S ORGANIZ ATION 03/26/2025 [facility] Goals (unrecognized section and content) Goals may [...] or prosecute any alcohol or drug abuse patient.[facility] HospitalIn the event this information is protected by the Federal Confidentiality of Alcohol and Drug Abuse Patient Records regulations: The Federal rules restrict any use of the information to criminally investigate or prosecute any alcohol or drug abuse patient.[facility] HospitalIn the event this information is protected by the Federal Confidentiality of Alcohol and Drug Abuse Patient Records regulations: The Federal rules restrict any use of the information to criminally investigate or prosecute any alcohol or drug abuse patient.[facility] HospitalIn the event this information is protected by the Federal Confidentiality of Alcohol and Drug Abuse Patient Records regulations: The Federal rules restrict any use of the information to criminally investigate or prosecute any alcohol or drug abuse patient.[facility] HospitalIn the event this information is protected by the Federal Confidentiality of Alcohol and Drug Abuse Patient Records regulations: The Federal rules restrict any use of the information to criminally investigate or prosecute any alcohol or drug abuse patient.[facility] HospitalIn the event this information is protected by the Federal Confidentiality of Alcohol and Drug Abuse Patient Records regulations: The Federal rules restrict any use of the information to criminally investigate or prosecute any alcohol or drug abuse patient.[facility] HospitalIn the event this information is protected by the Federal Confidentiality of Alcohol and Drug Abuse Patient Records regulations: The Federal rules restrict any use of the information to criminally investigate or prosecute any alcohol or drug abuse patient.[facility] HospitalIn the event this information is protected by the Federal Confidentiality of Alcohol and Drug Abuse Patient Records regulations: The Federal rules restrict any use of the information to criminally investigate or prosecute any alcohol or drug abuse patient.[facility] HospitalIn the event this information is protected by the Federal Confidentiality of Alcohol and Drug Abuse Patient Records regulations: The Federal rules restrict any use of the information to criminally investigate or prosecute any alcohol or drug abuse patient.[facility] HospitalIn the event this information is protected by the Federal Confidentiality of Alcohol and Drug Abuse Patient Records regulations: The Federal rules restrict any use of the information to criminally investigate or prosecute any alcohol or drug abuse patient.[facility] HospitalIn the event this information is protected by the Federal Confidentiality of Alcohol and Drug Abuse Patient Records regulations: The Federal rules restrict any use of the information to criminally investigate or prosecute any alcohol or drug abuse patient.[facility] HospitalIn the event this information is protected by the Federal Confidentiality of Alcohol and Drug Abuse Patient Records regulations: The Federal rules restrict any use of the information to criminally investigate or prosecute any alcohol or drug abuse patient.[facility] Reason for Visit (unrecogniz ed section and content) Reason Comments Eye Problem right eye swelling a nd pain x last night Specialty Diagnoses / Procedures Referred By Mariaelena conrad Referred To Contact Family Practice / [facility] Diagnoses sore throat, fever, fatigue, chills and bodyaches Procedures OFFICE/OUTPATIENT ESTABLISHED MOD MDM 30-39 MIN EST SAME DAY Self Palak Velazco APRN.DIRECTOR OF DISTANCE LEARNING [address] [place] [address] Referral ID Status Reason Start Date Expiration Date Visits Re quested Visits Authorized [id number] Closed 06/06/2021 06/05/2022 2 2 Reason Comments Cough Pt reported +Covid e xposure family member, SOB, denied chest pain Diarrhea Pt denied blood, muc us Nausea, sore throat pain rated 5 x 4 days Referral ID Status Reason Start Date Expiration Date Visits Re quested Visits Authorized [id number] Closed 06/06/2021 06/05/2022 1 1 Reason Comments Results Reason Comments Prescription Request to [facility] Reason Comments Forms [employer] Reason Onset Date Comments EMG 08/05/2022 Specialty Diagnoses / Procedures Referred By Mariaelena conrad Referred To Contact Neurology / NEUROMUSCULAR Diagnoses Muscle weakness MUSCLE WEAKNESS Procedures OFFICE/OUTPATIENT NEW MODERATE MDM 45-59 MINUTES NEW NI NEUROMUSC PAIN [facility] [address] [place] [address] Salvador Arshad MD [address] [facility] [address] [place] [address] Referral ID Status Reason Start Date Expiration Date V isits Requested Visits Authorized [id number] Authorized 07/22/2022 07/22/2023 20 20 Reason Comments [...] Cardiology Diagnoses Fluctuating blood pressures Syncope Procedures CO OFFICE/OP CONSLTJ NEW/EST PT MOD MDM 40 MINUTES [facility] [place] [address] [place] [address] Phone: tel: fax: Julienne Skinner MD [address] [address] Phone: tel: fax: Referral ID Status Reason Start Date Expiration Date Visits Re quested Visits Authorized [id number] Closed 11/30/2024 11/30/2025 1 1 Reason Onset Date Comments Other 01/07/2025 Awaking during t he night, increased heart rate, increased BP Reason Comments Follow-up Reason Comments Appointment 01/24/25 Appt Issue Reason Comments 1 Month Follow Up Reason Onset Date Comments Other 03/22/2025 Care Teams (unrecognized sec tion and content) Safety Instructor Relationship Specialty Start Date End Date Natividad Yee PA-C PCP - General Family Practice 10/21/16 Natividad Yee PA-C Referring Family Practice 01/30/20 Safety Instructor Relationship Specialty Start Date End Date Natividad Yee PA-C PCP - General Family Practice 10/21/16 Natividad Yee PA-C Referring Family Practice 01/30/20 Team Status: Active Member Role Status Dates Natividad COMBS PA-C Family Provider Active Natividad COMBS PA-C Primary Care Provider Active Team Status: Active Member Role Status Dates Natividad [place] PA, PA-C Primary Care Provider Active Dr. Pedro Eckert MD Attending Provider Active Team Status: Inactive Member Role Status Natividad COMBS PA-C Primary Care Provider Active Dr. Priscila Umaña MD Attending Provider Active Safety Instructor Relationship Specialty Start Date End Date NakiaKeiraNatividadellen [...] MD Attending Provider, Referring Pr ovider Active Safety Instructor Relationship Specialty Start Date End Date Natividad Yee PA-C PCP - General Family Medicine 10/21/16 Natividad Yee PA-C Referring Family Medicine 01/30/20 Safety Instructor Relationship Specialty Start Date End Date Natividad Yee PA-C PCP - General Family Medicine 10/21/16 Natividad Yee PA-C Referring Family Medicine 01/30/20 Safety Instructor Relationship Specialty Start Date End Date Natividad Yee PA-C PCP - General Family Medicine 10/21/16 Natividad Yee PA-C Referring Family Medicine 01/30/20 Safety Instructor Relationship Specialty Start Date End Date Natividad Yee PA-C PCP - General Family Medicine 10/21/16 Natividad Yee PA-C Referring Family Medicine 01/30/20 Team Status: Inactive Member Role Status Dates [facility] GARRET PA-C Primary Care Provider Active Dr. Gloria Layne MD Attending Provider Active Team Status: Inactive Member Role Status Dates [facility] GARRET PA-C Primary Care Pro vider, Attending Provider, Referring Provider Active Team Status: Inactive Member Role Status [facility] GARRET PA-C Primary Care Provider Active DANIELLE NAVA Referring Provider Active Dr. Meg Sadler MD Attending Provider Active Team Status: Inactive Member Role Status [facility] GARRET PA-C Primary Care Provider, Referri ng Provider Active RAYRAY Fatima Attending Provider Active Team Status: Inactive Member Role Status [facility] GARRET PA-C Primary Care Provider Active RAYRAY Fatima Attending Provider, Referring Pr ovider Active Safety Instructor Relationship Specialty Start Date End Date Natividad Yee PA-C PCP - General Family Medicine 10/21/16 Natividad Yee PA-C Referring Family Medicine 01/30/20 Team Status: Inactive Member Role Status Dates [facility] GARRET PA-C Primary Care Provider Active Start: September 06, 2024 End: September 06, 2024 Elinor Aguilar NP, [employer]IST-C Attending Provider Active Start: September 06, 2024 End: September 06, 2024 Elinor Aguilar NP, [employer]IST-C Referring Provider Active Start: September 06, 2024 End: September 06, 2024 Team Status: Active Member Role Status Dates Elinor Aguilar NP [employer]-C Primary Care Provider Activ e Team Status: Inactive Member Role Status Dates Dr. Ramesh Coffey DO Emergency Provider Active Start: October 26, 2024 End: October 26, 2024 Elinor Aguilar [employer] SPECIALIST, [employer]IST-C Primary Care Provider Activ e Start: October 26, 2024 End: October 26, 2024 Team Status: Inactive Member Role Status Dates Elinor Aguilar NP, [employer] SPECIALIST-C Primary Care Provider Activ e Start: October [...] October 26, 2024 End: October 26, 2024 Eilnor Aguilar [employer] SPECIALIST, [employer] SPECIALIST-C Primary Care Provider Activ e Start: October [...] Member Role Status Dates Elinor Aguilar NP, [employer] SPECIALIST-C Primary Care Provider Activ e Start: October [...] Status: Active Member Role Status Dates Dr. Kaal Solares MD Primary Care Provider Active Start: [...] 2024 End: September 06, 2024 Elinor Aguilar [employer] SPECIALIST, [employer] SPECIALIST-C Attending Provider Active Start: September 06, 2024 End: September 06, 2024 Elinor Aguilar [employer] SPECIALIST, [employer] SPECIALIST-C Referring Provider Active Start: September 06, 2024 End: September 06, 2024 Team Status: Inactive Member Role/Relationship Status Dates Dr. Ramesh Coffey DO Attending Provider Active Start: October 26, 2024 End: October 26, 2024 Dr. Ramesh Coffey , Emergency Provider Active Start: October 26, 2024 End: October 26, 2024 Elinor Aguilar [employer] SPECIALIST, [employer] SPECIALIST-C Primary Care Provider Activ e Start: October 26, 2024 End: October 26, 2024 Team Status: Inactive Member Role/Relationship Status Dates Elinor Aguilar [employer] SPECIALIST, [employer] SPECIALIST-C Primary Care Provider Activ e Start: October [...] Status: Inactive Member Role/Relationship Status Dates Dr. Klaa Solares MD Primary Care Provider Active Start: [...] November 27, 2024 End: November 27, 2024 Safety Instructor Relationship Specialty Start Date End Date Kala Solares MD [address] [facility] [place] [id number] PCP - General Family Medicine 11/30/24 Team [...] December 05, 2024 End: December 05, 2024 Safety Instructor Relationship Specialty Start Date End Date Kala Solares MD [address] [place] [place] [phone] PCP - General Family Medicine 11/30/24 Safety Instructor Relationship Specialty Start Date End Date Kala Solares MD [address] [place] [place] [phone] PCP - General Family Medicine 11/30/24 Team Status: Inactive Member Role/Relationship Status Dates Dr. Ramesh Coffey DO Attending Provider Active Start: October 26, 2024 End: October 26, 2024 Dr. Ramesh Coffey DO Emergency Provider Active Start: October 26, 2024 End: October 26, 2024 Elinor Aguilar [employer] SPECIALIST, [employer] SPECIALIST-C Primary Care Provider Activ e Start: October 26, 2024 End: October 26, 2024 Team Status: Inactive Member Role/Relationship Status Dates Elinor Aguilar [employer] SPECIALIST, [employer] SPECIALIST-C Primary Care Provider Activ e Start: October [...] January 17, 2025 End: January 17, 2025 Safety Instructor Relationship Specialty Start Date End Date Natividad Yee PA-C PCP - General Family Medicine 10/21/16 Natividad Yee PA-C Referring Family Medicine 01/30/20 Safety Instructor Relationship Specialty Start [place] [address] [place] [address] [place] [phone] PCP - General Family Medicine 11/30/24 Safety Instructor Relationship Specialty Start Date End Date Kala Solares MD [address] [place] [phone] PCP - General Family Medicine [...] BE BASED ON THE PRIMARY CLINICAL RECORDS. [employer] provides no warranty or guarantee of the accuracy or completeness of information in this document.
[2025-03-26 16:20] LABS: Anion Gap 11 (5-15); BUN 13 mg/dL (4-19); BUN/Creat Ratio 14.8 RATIO (10-20); Calcium,Total 9.9 mg/dL (7.6-11.0); Carbon Dioxide 26.3 mmol/L (21.0-32.0); Chloride 102 mmol/L (98-108); Glucose 105 mg/dL (70-99); Magnesium 2.7 mg/dL (1.5-2.2); Potassium 4.1 mmol/L (3.3-5.1)
== END | disposition home or self-care (01) ==
PROVIDERS: PCP Family Medicine; Referring Provider Family Medicine; Visit Provider Family Medicine
DX: I10 Essential (primary) hypertension (principal)
CPT/HCPCS: 36415; 80048; 83735

== ENCOUNTER 2025-04-04 10:30 | Outpatient (RCR) | payer SELFPAY | END 2025-04-04 19:00 | disposition home or self-care (01) | LOC: PT 10:30 | PROVIDERS: PCP Family Medicine; Referring Provider Chiropractor; Visit Provider Chiropractor | DX: S83.512D Sprain of anterior cruciate ligament of left knee, subsequent encounter (principal) ==

== ENCOUNTER → 2025-05-01 | Outpatient (CLI) | payer SELFPAY ==
[2025-05-01 15:20] LABS: Hematocrit 42.6 % (37-47); Hemoglobin 14.3 g/dL (12.0-15.0); Immature Granulocytes Count 0.030 X10^3/uL (0.0-0.0); Mean Corp Hgb Conc 33.6 g/dL (32-36); Mean Corpuscular Volume 89.7 fL (81-99); Mean Platelet Vol. 10.3 fl (6.2-12.0); NRBC Flagged by Analyzer 0 % (0-5); Platelet Count 323 K/mm3 (150-450); RBC Distribution Width CV 12.9 % (11.6-14.6); RBC Distribution Width SD 42.7 fl (35.1-43.9); Red Blood Count 4.75 M/mm3 (4.2-5.4); White Blood Count 8.0 K/mm3 (4.4-11.0)
[2025-05-01 16:00] LABS: Iron 57 ug/dL (50-170); Iron Binding Capacity,Total 326 ug/dL (250-450); Iron Binding Capacity,Unsat 269 ug/dL (228-428)
[2025-05-01 16:28] LABS: Ferritin 40 ng/mL (22-378); Vitamin B12 2213 pg/mL (180-914)
[2025-05-01 16:34] LABS: FOLATES,SERUM (FOLIC ACID) 26.00 ng/mL (4.60-34.80)
== END | disposition home or self-care (01) ==
PROVIDERS: PCP Family Medicine; Referring Provider Internal Medicine Pulmonary Disease; Visit Provider Internal Medicine Pulmonary Disease
DX: D64.9 Anemia, unspecified (principal); R06.02 Shortness of breath
CPT/HCPCS: 36415; 82607; 82728; 82746; 83540; 83550; 85025